=== PATIENT | male | born 1945 | race Caucasian/White ===

== ENCOUNTER 2023-09-19 16:42 | Emergency (ER) | payer MEDICARE, SELFPAY ==
[2023-09-19] VITALS (44 sets, daily range): BP systolic 121–210; BP diastolic 84–117; PULSE 79–109; RESP 13–24; TEMP 37.2; O2SAT 94–100; BMI 25.0
--- NOTE | 2023-09-19 16:50 | ECG_ITS ---
The 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
--- NOTE | 2023-09-19 16:57 | ED_ITS ---
HPI - General Adult General Chief complaint: Nausea/Vomiting/Diarrhea Stated complaint: Nausea/Vomiting Time Seen by Provider: 09/19/23 16:47 Source: patient Mode of arrival: ambulance Limitations: no limitations History of Present Illness HPI narrative: 78-year-old male presents to the emergency department via EMS with complaint of dizziness, nausea, vomiting, and diarrhea. Onset 1 week ago of dizziness followed by the other symptoms. Describes dizziness as room spinning that worsens when he changes position. Received 8mg of IV Zofran via EMS while enroute. Denies any abdominal pain, fever, chills, lightheadedness, presyncope. Quality:?as above Severity:?moderate Timing:?as above, constant Context: Normal setting and activity? Modifying factors:?as above Associated symptoms: as above Related Data Home Medications Medication Instructions Recorded Confirmed aspirin 325 mg tablet 325 mg PO DAILY 09/19/23 09/19/23 metoprolol tartrate 25 mg tablet 12.5 mg PO BID 09/19/23 09/19/23 nitroglycerin 0.4 mg sublingual 0.4 mg sublingual Q5M PRN chest 09/19/23 09/19/23 tablet pain simvastatin 40 mg tablet 40 mg PO DAILY 09/19/23 09/19/23 Allergies Allergy/AdvReac Type Severity Reaction Status Date / Time No Known Drug Allergies Allergy Verified 09/19/23 16:45 Review of Systems ROS Narrative CONST: Denies fever, chills HENT: Denies congestion, sore throat EYES: Denies eye redness, visual disturbance RESP: Denies cough, shortness of breath CV: Denies chest pain, palpitations GI: + n/v/d. Denies abd pain : Denies dysuria, flank pain MS: Denies back pain, myalgias SKIN: Denies color change, rash NEURO: + dizziness. Denies facial asymmetry, headaches, light-headedness, numbness, seizures, syncope, tremors, weakness PSYCHIATRIC: Denies confusion, agitation PFSH PFSH Social History Smoking status: Never smoker Exam Narrative Exam Narrative: Vital signs reviewed Nurses notes noted CONST: Nontoxic, well appearing, well nourished, in no distress.? No diaphoresis.?? HENT: normocephalic, atraumatic, moist mucous membrane, no abnormalities of the nose noted, hearing normal, no facial droop EYES: PERRL, EOMI.? normal appearing conjunctiva, no apparent discharge bilat. + NECK: normal appearance CV: normal rate, regular rhythm, no murmur RESP: normal effort, speaking in complete sentences. Lung sounds clear and equal bilat.? No wheezes, rales, rhonchi GI: normal bowel sounds, soft, nontender, no distension : no CVA tenderness MS: no edema, injury SKIN: no pallor NEURO: A&Ox 3, GCS = 15, no sensory, motor deficits.? CN normal as tested. NIH = 0.? 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 Normal speech.? Memory intact Constitutional Vital Signs, click to edit/add: Last Vital Signs Temp 98.9 F 09/19/23 16:45 Pulse 102 H 09/19/23 23:21 Resp 23 09/19/23 23:21 BP 161/84 H 09/19/23 23:30 Pulse Ox 98 09/19/23 18:40 O2 Del Method Room Air 09/19/23 16:45 Course Reevaluation(s) Reevaluation #1: States overall improvement of his dizziness. Nausea has improved as well. Will attempt to ambulate patient and reassess. Time: 18:38 Reevaluation #2: Nursing attempted to ambulate patient. However, when he went to go stand up, became vertiginous again and had to sit back down. New medicines ordered. Time: 18:52 Reevaluation #3: Patient still remains quite vertiginous. CT head ordered. Time: 19:33 Consultations Consultation #1: Dr. García who will accept patient at [facility]. Requests CTA head and neck and to start patient on Cardene drip with goal of blood pressure below 140 systolic. Time: 20:40 Vital Signs Vital signs: Vital Signs Temperature 98.9 F 09/19/23 16:45 Pulse Rate 81 09/19/23 16:45 Respiratory Rate 20 09/19/23 16:45 Blood Pressure 179/115 H 09/19/23 16:45 Pulse Oximetry 100 09/19/23 16:45 Oxygen Delivery Method Room Air 09/19/23 16:45 Temperature 98.9 F 09/19/23 16:45 Pulse Rate 102 H 09/19/23 23:21 Respiratory Rate 23 09/19/23 23:21 Blood Pressure 161/84 H 09/19/23 23:30 Pulse Oximetry 98 09/19/23 18:40 Oxygen Delivery Method Room Air 09/19/23 16:45 Medical Decision Making MDM Narrative Medical decision making narrative: This is a pleasant 78-year-old male presents to the emergency department with his with 1 week history of dizziness. Describes as spinning sensation that changes with changes in position. Having associated nausea, vomiting with this. Denies any headache, prior history of vertigo. On arrival, afebrile, vital signs stable. He arrived via EMS. On exam, nontoxic, overall well-appearing patient, in no distress. Exam reveals horizontal nystagmus. No focal deficits. 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 No gross cranial nerve deficits. Unable to stand patient to assess gait as he is extremely vertiginous. EKG reveals no acute changes Labs reveal no leukocytosis, anemia, thrombocytopenia, electrolyte imbalance, renal impairment. COVID, influenza, RSV testing were all negative. LFTs unrema rkable. Initial presentation, working diagnosis was of benign positional vertigo. However, when patient did not respond at all to medication treatment, CT was obtained which revealed cerebellar hemorrhages, per radiology report. Discussed results with patient and and need to transfer to higher level of care. They initially requested [facility], but neurosurgery not available there. Patient denies any anticoagulant use. Only takes ASA. They are agreeable with [facility] and neurosurgery at [facility] was consulted. Patient was subsequently accepted with request for CTA head and neck, as well as Cardene drip with goal blood pressure of less than 140 mmHg. Patient with condition that could cause him to deteriorate quickly. Will carefully monitor Plan: Patient will be transferred in serious condition Medical Records Medical records reviewed: Yes I reviewed the patient's medical records Lab Data Labs: Lab Results 09/19/23 09/19/23 09/19/23 Range/Units 17:15 17:40 19:20 WBC 11.6 H (4.0-11.0) 10^3/uL RBC 6.00 (4.70-6.10) 10^6/uL Hgb 16.8 (14.0-18.0) g/dL Hct 50.5 (42.0-54.0) % MCV 84.2 (80.0-94.0) fL MCH 28.0 (25.9-34.0) pg MCHC 33.3 (29.9-35.2) g/dL RDW 12.8 (11.0-15.0) % Plt Count 312 (150-450) 10^3/uL MPV 10.6 (9.5-13.5) fL Seg Neuts % (Manual) 93.0 Lymphocytes % (Manual) 4.0 L (20.5-60.0) % Monocytes % (Manual) 3.0 (1.7-12.0) % Eosinophils % (Manual) 0.0 L (0.9-7.0) % Basophils % (Manual) 0.0 L (0.2-2.0) % Neutrophils # (Manual) 10.78 H (1.4-6.5) 10^3/uL Lymphocytes # (Manual) 0.46 L (1.20-3.80) 10^3/uL Monocytes # (Manual) 0.34 (0.30-0.80) 10^3/uL Eosinophils # (Manual) 0.00 (0.00-0.70) 10^3/uL Basophils # (Manual) 0.00 (0.00-0.10) 10^3/uL Sodium 139 (136-145) mmol/L Potassium 4.5 (3.5-5.1) mmol/L Chloride 101 (98-107) mmol/L Carbon Dioxide 30.0 (21.0-32.0) mmol/L Anion Gap 12.5 BUN 27.0 H (7.0-18.0) mg/dL Creatinine 1.07 (0.70-1.30) mg/dL Est GFR ( Amer) >60 (>=60) Est GFR (Non-Af Amer) >60 (>=60) BUN/Creatinine Ratio 25.2 Glucose 156 H (74-106) mg/dL Calcium 9.1 (8.5-10.1) mg/dL Total Bilirubin 0.8 (0.2-1.0) mg/dL AST 28 (15-37) U/L ALT 29 (16-63) U/L Alkaline Phosphatase 57 (46-116) U/L Total Protein 8.5 H (6.4-8.2) g/dL Albumin 3.7 (3.4-5.0) g/dL Globulin 4.8 g/dL Albumin/Globulin Ratio 0.8 Influenza Type A Ag Negative Influenza Type B Ag Negative RSV Antigen Not detected (NOT DETECTE) SARS-CoV-2 Ag (CV2AG) Negative (NEGATIVE) ECG Data Attestation: I personally reviewed and interpreted this ECG as follows: (EKG performed at 1653 hrs. reveals sinus rhythm at 80 bpm. No ischemia or ectopy noted. No ST elevation. Normal axis. No other acute changes.) Critical Care Time Critical Care Time Critical Care Time: Yes Total Critical Care Time: 40 Attestation: I spent a total of? 40 minutes of critical care time in the evaluation and management of this patient. This was necessary to treat or prevent deterioration of the following condition(s): elevated BP, ICH, which the patient had and/or has a high probability of suddenly developing. The patient received Cardene drip, monitoring, during the time that critical care was provided. Critical care time excludes separately billed procedures. Discharge Plan Discharge Chief Complaint: Nausea/Vomiting/Diarrhea Clinical Impression: Acute cerebellar hemorrhage, Elevated blood pressure reading, Dizziness Nausea & vomiting Qualifiers: Vomiting type: unspecified Qualified Code(s): R11.2 - Nausea with vomiting, unspecified Patient Disposition: [facility] Time of Disposition Decision: 20:47 Discharge Location: [facility] Condition: Serious Mode of Transportation: EMS Discharge Date/Time: 09/20/23 00:10
[2023-09-19] MEDS: DIAZEPAM 10 MG/2 ML SYRINGE 2.5 MG IV (17:13)
[2023-09-19] MEDS: 0.9 % SODIUM CHLORIDE 1,000 ML 999 ML IV (17:13)
[2023-09-19 17:27] LABS: Hematocrit 50.5 % (42.0-54.0); Hemoglobin 16.8 g/dL (14.0-18.0); Mean Corpuscular HGB Conc 33.3 g/dL (29.9-35.2); Mean Corpuscular Volume 84.2 fL (80.0-94.0); Mean Platelet Volume 10.6 fL (9.5-13.5); Platelet Count 312 10^3/uL (150-450); Red Cell Distribution Width 12.8 % (11.0-15.0); White Blood Count 11.6 10^3/uL (4.0-11.0)
[2023-09-19] MEDS: MECLIZINE HCL 12.5 MG TABLET 25 MG PO ×2 (17:45→19:08)
[2023-09-19 18:00] LABS: Lymphocytes Absolute Manual 0.46 10^3/uL (1.20-3.80); Monocytes Absolute Manual 0.34 10^3/uL (0.30-0.80); Segmented Neut Absolute Manual 10.78 10^3/uL (1.4-6.5)
[2023-09-19 18:03] LABS: Alanine Aminotransferase 29 U/L (16-63); Albumin Globulin Ratio 0.8; Albumin Level 3.7 g/dL (3.4-5.0); Alkaline Phosphatase 57 U/L (46-116); Anion Gap 12.5; Aspartate Amino Transferase 28 U/L (15-37); BUN Creatinine Ratio 25.2; Bilirubin Total 0.8 mg/dL (0.2-1.0); Calcium 9.1 mg/dL (8.5-10.1); Chloride 101 mmol/L (98-107); Estimated GFR (African America >60 (>=60); Estimated GFR (Non-African Ame >60 (>=60); Globulin 4.8 g/dL; Glucose 156 mg/dL (74-106); Potassium 4.5 mmol/L (3.5-5.1); Sodium 139 mmol/L (136-145); Total Protein 8.5 g/dL (6.4-8.2)
[2023-09-19] MEDS: ONDANSETRON PF 4 MG/2 ML VIAL IV (19:08)
[2023-09-19] MEDS: METHYLPREDNISOLONE SOD SUCC PF 125 MG/2 ML VIAL IVP (19:09)
--- NOTE | 2023-09-19 19:33 | CT_ITS ---
The [address] [address] Patient Name: JANICE SHULTZ MRN: [id number] date: 1945 Sex: M Assigned Patient Location: ER Current Patient Location: ER Accession/Order Number: [id number] Exam Date: 09/19/2023 19:42 Report Date: 09/19/2023 20:00 At the request of: KAY BROTHERS Procedure: CT head/brain wo con CT OF THE BRAIN WITHOUT CONTRAST: 09/19/2023 7:42 PM EST HISTORY: Dizziness. TECHNIQUE: Contiguous axially collimated images were obtained through the intracranial compartment, from the vertex through the foramen magnum. Coronal and Sagittal reformatted images were prepared on a separate workstation and reviewed on the PACS for anatomic correlation. No contrast was administered. This CT exam was performed using one or more of the following dose reduction techniques: Automated exposure control, adjustment of the mA and/or kV according to patient size, or use of iterative reconstruction technique. Thin section coronal and sagittal images were reconstructed from the axial data set. All images were reviewed and interpreted. COMPARISON: None. FINDINGS: Acute left cerebellar hemorrhage/hemorrhages are noted. These are intraparenchymal. One versus 2 adjacent hemorrhages together extending 3 cm transverse and approximately 1.2 cm craniocaudal and AP 1.3 cm. There is diffuse surrounding vasogenic edema present. This is causing localized mass effect. Mild mass effect on the fourth ventricle. No significant mass effect. No intraventricular hemorrhage. No hydrocephalus. No additional areas of intra-axial or extra-axial hemorrhage. 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 This is causing slight ex vacuo dilation of the posterior horn right lateral ventricle relative to the left. There is a remote lacunar infarct in the right basal ganglia and adjacent deep white matter in the anterior limb right internal capsule and right caudate head. Mildly prominent cisterna magna. No midline shift or herniation. Moderate bilateral cerebral atrophy. Mild chronic small vessel ischemic change in the bilateral periventricular white matter with more extensive chronic gliosis within the right parietal lobe from old adjacent infarct. Sinuses and mastoid air cells are clear. Orbits are normal. Intact calvarium. CT/CT head/brain wo con IMPRESSION: 1. Acute left cerebellar intraparenchymal hemorrhage/hemorrhages. Uncertain if there is one versus 2 adjacent hemorrhages. Associated surrounding vasogenic edema causing localized mass effect but no midline shift or herniation. No intraventricular hemorrhage or hydrocephalus. There is some minimal mass effect on the fourth ventricle. Differential includes acute hemorrhagic stroke. Underlying hemorrhagic metastasis not excluded. Follow up. 2. 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 3. Sequelae of old right basal ganglia, caudate and deep white matter lacunar infarct. Electronically authenticated by: MAURA CHAUDHRY Date: 09/19/2023 20:00
[2023-09-19 19:45] LABS: Respiratory Syncytial Virus Not Detected (NOT DETECTE); SARS-CoV-2 Ag NEGATIVE (NEGATIVE)
[2023-09-19 19:46] LABS: Influenza Virus A Antigen Negative; Influenza Virus B Antigen Negative; Internal Control Within Normal Limits
--- NOTE | 2023-09-19 20:40 | CT_ITS ---
[address] [address] Patient Name: JANICE SHULTZ MRN: [id number] date: 1945 Sex: M Assigned Patient Location: ER Current Patient Location: .[facility] Accession/Order Number: [id number] Exam Date: 09/19/2023 21:10 Report Date: 09/19/2023 21:54 At the request of: KAY BROTHERS Procedure: CT angio neck CTA HEAD/NECK. HISTORY: CVA COMPARISON: None. TECHNIQUE: CT angiogram of the head and neck obtained after administration of 75 mL of nonionic intravenous contrast material, Isovue-300. Multiplanar and volume rendered 3-D reformats were created. NASCET criteria was used for evaluation of luminal stenosis. 3-D vascular images were constructed on a separate workstation. FINDINGS: THORACIC AORTA: Normal. There is a normal anatomy at the origin of the great vessels. RIGHT COMMON CAROTID ARTERY: No significant stenosis. RIGHT EXTERNAL CAROTID ARTERY: No significant stenosis. RIGHT INTERNAL CAROTID ARTERY: No significant stenosis. LEFT COMMON CAROTID ARTERY: No significant stenosis. LEFT EXTERNAL CAROTID ARTERY: No significant stenosis. LEFT INTERNAL CAROTID ARTERY: No significant stenosis. RIGHT VERTEBRAL ARTERY: No significant stenosis. LEFT VERTEBRAL ARTERY: There is occlusion of the V1 and proximal V2 segment with reconstitution of the more distal V2 segment. [place]: There is moderate focal stenosis of the right MCA distal M1 segment. POSTERIOR INTRACRANIAL CIRCULATION: The basilar artery and posterior cerebral arteries are patent, without stenosis or occlusion. 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 DURAL SINUSES: Patent. No intracranial aneurysm measuring least 2 mm identified. No intracranial AVM. LUNG APICES: The lung apices are clear. SOFT TISSUES: The prevertebral soft tissues are normal. No soft tissue inflammation. OSSEOUS STRUCTURES: No acute osseous abnormality throughout the imaged axial skeleton and skull base. CT/CT angio neck IMPRESSION: 1. 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 2. 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 3. Moderate multifocal stenosis of the bilateral SU[employer].. Electronically authenticated by: NATE JAMES Date: 09/19/2023 21:54
--- NOTE | 2023-09-19 20:40 | CT_ITS ---
[address] [address] Patient Name: JANICE SHULTZ MRN: [id number] date: 1945 Sex: M Assigned Patient Location: ER Current Patient Location: .[facility] Accession/Order Number: [id number] Exam Date: 09/19/2023 21:10 Report Date: 09/19/2023 21:54 At the request of: KAY BROTHERS Procedure: CT angio head CTA HEAD/NECK. HISTORY: CVA COMPARISON: None. TECHNIQUE: CT angiogram of the head and neck obtained after administration of 75 mL of nonionic intravenous contrast material, Isovue-300. Multiplanar and volume rendered 3-D reformats were created. NASCET criteria was used for evaluation of luminal stenosis. 3-D vascular images were constructed on a separate workstation. FINDINGS: THORACIC AORTA: Normal. There is a normal anatomy at the origin of the great vessels. RIGHT COMMON CAROTID ARTERY: No significant stenosis. RIGHT EXTERNAL CAROTID ARTERY: No significant stenosis. RIGHT INTERNAL CAROTID ARTERY: No significant stenosis. LEFT COMMON CAROTID ARTERY: No significant stenosis. LEFT EXTERNAL CAROTID ARTERY: No significant stenosis. LEFT INTERNAL CAROTID ARTERY: No significant stenosis. RIGHT VERTEBRAL ARTERY: No significant stenosis. LEFT VERTEBRAL ARTERY: There is occlusion of the V1 and proximal V2 segment with reconstitution of the more distal V2 segment. [place]: There is moderate focal stenosis of the right MCA distal M1 segment. POSTERIOR INTRACRANIAL CIRCULATION: The basilar artery and posterior cerebral arteries are patent, without stenosis or occlusion. 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 DURAL SINUSES: Patent. No intracranial aneurysm measuring least 2 mm identified. No intracranial AVM. LUNG APICES: The lung apices are clear. SOFT TISSUES: The prevertebral soft tissues are normal. No soft tissue inflammation. OSSEOUS STRUCTURES: No acute osseous abnormality throughout the imaged axial skeleton and skull base. CT/CT angio head IMPRESSION: 1. 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 2. 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 3. Moderate multifocal stenosis of the bilateral INTERVENTIONAL PHYSICIAN.. Electronically authenticated by: NATE JAMES Date: 09/19/2023 21:54
[2023-09-19] MEDS: NICARDIPINE IN NACL, ISO-OSM 40 MG/200 ML PIGGYBACK 25 MG IV (21:43)
== END 2023-09-20 00:10 | disposition short-term general hospital (02) ==
PROVIDERS: Physician Assistant; Emergency Provider Emergency Medicine; PCP Family Medicine
DX: I61.4 Nontraumatic intracerebral hemorrhage in cerebellum (principal); R11.2 Nausea with vomiting, unspecified; R03.0 Elevated blood-pressure reading, without diagnosis of hypertension; R19.7 Diarrhea, unspecified; Z79.82 Long term (current) use of aspirin; R42 Dizziness and giddiness
CPT/HCPCS: 36415; 70450; 70496; 70498; 80053; 85007; 85027; 87420; 87804; 87811; 93005; 96374; 96375; 99285; J2404; J2405; J2930; J3360; Q9967

== ENCOUNTER 2023-10-17 09:10 | Emergency (ER) | payer MEDICARE, SELFPAY ==
[2023-10-17 09:16] VITALS: BP 137/82; PULSE 60; RESP 16; TEMP 36.5; O2SAT 97; BMI 24.4
--- OUTSIDE RECORDS SUMMARY | 2023-10-17 09:39 | XMS_ITS | CCD ---
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 Name Role Phone SYSTEM, PROVIDER NOT IN Unavailable Unavaila SHERIF Mathias Unavailable Unavailable KAY JEAN Unavailable Unavailable MARIA TERESA, JAILENE Unavailable Unavailable UDREA, PETRE Unavailable Unavailable SYSTEM, PROVIDER NOT IN Unavailable Unavaila ble JAMESON SHERIDAN Unavailable Unavailable DALJIT, DEVYN Unavailable Unavailable MARIA TERESA, JAILENE Unavailable Unavailable SYSTEM, PROVIDER NOT IN Unavailable Unavaila ble SIDDHARTH DOLAN Unavailable Unavailable UNKNOWN, PROVIDER Unavailable Unavailable DEFRANCE, SHERIF Unavailable Unavailable Defbhupendra, Sherif Lofton Unavailable Unavailable Unavailable Trinh Bailey Unavailable Unavailable Unavailable PAY, DR NORMAN Admitting Unavailable West, DR Gorman Consulting Unavailable DEFRANCE, DR GORMAN Primary Care Unavailable PAY, DR NORMAN Attending Unavailable PAY, DR NORMAN Consulting Unavailable HAY, DR KNIGHT Admitting Unavailable DEFRANCE, DR GORAMN Primary Care Unavailable HAY, DR KNIGHT Attending Unavailable HAY, DR KNIGHT Consulting Unavailable TROTTLv GIROLADENVER Consulting Unavailable HONG, DR CAITIE Roque Attending Unavailabl e REINECK, DR CAITIE Roque Consulting Unavailabl e DEFRANCE, DR GORMAN Primary Care Unavailable HONG, DR CAITIE Roque Admitting Unavailabl e NISSA, DR KASH Richardson Consulting Unavailable GWENDOLYN BUNN Consulting Unavailable Jean Carlos, Dr. Lake Chan Attending Unava ilable Jean Carlos, Dr. Lake Chan Referring Unava ilable Defrance, Dr. Sherif Magana Primary Care Unava ilable LENA, SHERIF Lofton Referring Unavailable DEFBHUPENDRA, SHERIF Lofton Primary Care Unavailable DEFRANCE, SHERIF Lofton Referring Unavailable DEFRANCE, SHERIF Lofton Primary Care Unavailable DEFRANCE, SHERIF Lofton Referring Unavailable DEFRANCE, SHERIF T Primary Care Unavailable Sherif Paredes MD Primary Care Provider [phone] GOPAL NOVA Admitting Unavailable GOPAL NOVA Attending Unavailable REF PROV, NOT IN SYSTEM Referring Unavaila ble DEFBHUPENDRA, SHERIF Lofton Primary Care Unavailable JOHNATHAN PINTO Consulting Unavailable STEPHANIEROLAND Caruso Consulting Unavailable JAUN, JANICE Y Consulting Unavailable MAGSI, RAYAN Referring Unavailable DEFRANCE, SHERIF Lofton Primary Care Unavailable MAGSI, RAYAN Referring Unavailable DEFRANCE, SHERIF Lofton Primary Care Unavailable PRSAANNA THORNTON Referring Unavailable DEFRANCE, SHERIF Lofton Primary Care Unavailable MD Sherif Paredes Primary Care Provider MD Donovan La Admit Provider MD Donovan La Attending Provider FELIPE Barber Other Provider Unavailable FELIPE Heredia Other Provider Unavailable FELIPE Galicia Other Provider Unavailable FELIPE Enriquez Other Provider Unavailable FELIPE Burris Other Provider Unavailable FELIPE Mendieta Other Provider Unavailable FELIPE Butler Other Provider Unavailable MD Sole [place] Other Provider MD Prem Carrasco Other Provider Unavailable NAN North Other Provider DO Aayush Faith Other Provider MD Fuentes Nazario Other Provider DO Cesar Parr Other Provider MD Emanuel Stevenson Other Provider MD Niurka Chung Other Provider MD Alex Hernandes Other Provider Unavailable NAN Andrea Other Provider MD Hali Springer Other Provider MD Fercho Newby Other Provider MD Adriana Ling Other Provider MD Saloni Esposito Other Provider DO Kay Blackburn Other Provider MD Lindsey Mcghee Other Provider MD Bahman Harley Other Provider ANTWAN Dyer Other Provider NAN Rodríguez Other Provider Unavailable MD Fletcher Pollard Other Provider MD Gui Longo Other Provider MD Alexx Garcia Other Provider MD Arlene Mccall Other Provider Unavailable MD Rohit Toure Other Provider DO Radha Islas Other Provider DO Crow Ceballos Other Provider DO Dominic Bo Other Provider NAN Malhotra Other Provider DO Sav Malcolm Other Provider MD Angel Houston Other Provider NAN Lipscomb Other Provider NAN Leavitt Other Provider MD Naye Saxena Other Provider MD Triston Camp Other Provider DO Lee Dumont Other Provider NAN Garrett Other Provider Unavailjen alanis SegunDO connor Yazid Other Provider FELIPE Dan Other Provider Unavailable Sherif Paredes Primary Care Unavailable Hernan Minaya Attending Unavailable Donovan La Admitting Unavaila Jessica Fairbanks Consulting Unavailable Gabbie Heredia Consulting Unavailable Shaista Galicia Consulting Unavailable Harriet Enriquez Consulting Unavailable Carmen Burris Consulting Unavailable Shreya Mendieta Consulting Unavailable Richa Butler Consulting Unavailable Sole [place] Consulting Unavailable Danilo, Prem K Consulting Unavailable Catie North Consulting Unavailable Aayush Faith Consulting Unavailable Fuentes Nazario Consulting Unavailable Cesar Parr Consulting UnavailEmanuel Yanes Consulting Unavailable Niurka Chung Consulting Unavailable Alex Hernandes Consulting Unavailable Jessie Andrea Consulting UnavailHali Avila Consulting Unavailable Fercho Newby Consulting Unavailable Adriana Ling Consulting Unavailable Saloni Esposito Consulting Unavailable Kay Blackburn Consulting Unavailable Lindsey Mcghee Consulting Unavailable Bahman Harley Consulting Unavailable Kell Dyer Consulting Unavailable Rebekah Rodríguez Consulting Unavailable Fletcher Pollard Consulting UnavailGui Boudreaux Consulting Unavailable Alexx Garcia Consulting Unavailable Arlene Mccall Consulting Unavailable Rohit Toure Consulting Unavailable Radha Islas Consulting Unavailable Crow Ceballos Consulting Unavailable Dominic Bo Consulting Unavailable ObSarah mary Consulting Unavailable Sav Malcolm Consulting Unavailable Daromar Obayvikki M Consulting Unavailable Carmen Lipscomb Consulting Unavailable Fouzia Leavitt Consulting Unavailable Alahmad, Alaa Consulting Unavailable Triston Camp Consulting Unavailable Lee Dumont Consulting Unavailable Jewels Garrett Consulting Unavailable Kandice Cast Consulting Unavailable Yuli Dan Consulting Unavailable Trinh Bailey Attending Unavailable Trinh Bailey Admitting Unavailable Sherif Paredes Primary Care Unavailable Allergies Allergy Classification Reported Allergen(s) Allergy Type Date of Onset Reaction(s) Facility (9 sources) atorvastatin; Translations: [ATORVASTATIN] Drug Allergy 6 [facility], [facility] Rep[facility] Medications Current Medications Medication Drug Class(es) Dates Sig (Normalized) Sig (Original) acetaminophen 500 mg oral tablet (1 source) Start: 10-03-2023 take 500 mg by mouth every four hours Acetaminophen Active 500 MG PO Q4H 0 October 03, 2023 12:00am aspirin 81 mg chewable tablet (12 sources) Platelet Aggregation Inhibitor, Nonsteroidal Anti-inflammatory Drug Start: 09-26-2023 aspirin 81 mg chewable tablet Chew 1 tablet (81 mg total) and swallow in the morning. 0 09/26/2023 Active Start: 05-10-2020 Aspirin (Deirdre Low Dose Aspirin) 81 mg Tablet,Delayed Release (Dr/Ec) Active 81 MG PO Daily May 09, 2020 11:00pm take 1 tablet by letty th every twenty-four hours Aspirin 81 MG 1 tablet Orally Once a day Active meclizine hydrochloride 25 mg oral tablet (2 sources) Antiemetic Start: 10-03-2023 take 25 mg by mouth every eight hours Meclizine Active 25 MG PO Every 8 hours 90 October 03, 2023 12:00am meclizine (ANTIV ERT) 25 mg tablet Indications: vertigo Chew 1 tablet (25 mg total) and swallow 3 (three) times a day as needed for dizziness Indications: sensation of spinning or whirling. Take every 8 hours as needed for dizziness 0 Active melatonin 5 mg oral tablet (4 sources) Start: 09-25-2023 take 1 tablet by mouth once daily melatonin (CIRCADIN) 5 mg tablet Take 1 tablet (5 mg total) by mouth nightly. 0 09/25/2023 Active Start: 09-25-2023 take 5 mg by mouth at bedtime Melatonin Active 5 MG PO Bedtime September 25, 2023 12:00am metFORMIN hydrochloride 500 mg oral tablet (4 sources) Biguanide Start: 09-25-2023 take 1 tablet by mouth once daily at breakfast metFORMIN (GLUCOPHAGE) 500 mg tablet Take 1 tablet (500 mg total) by mouth daily with breakfast. 0 09/26/2023 Active metoprolol tartrate 25 mg oral tablet (13 sources) beta-Adrenergic Ari Start: 05-04-2020 take 1 tablet by mouth in the morning, then take 1 tablet by mouth at bedtime metoprolol tartrate (LOPRESSOR) 25 mg tablet Take 1 tablet (25 mg total) by mouth in the morning and 1 tablet (25 mg total) before bedtime. 0 09/25/2023 Active take 1 capsule by mouth once harjeet ly Metoprolol Succinate 50 MG 1 capsule Orally Once a day Active take 0.5 tablet by mouth twice d aily Metoprolol Tartrate 25 MG Oral Tablet Take 1/2 tablet two times daily Quantity: 90 Refills: 3 Ordered: 21-Nov-2022 Lake Evangelista DO Active omega-3 acid ethyl esters (u sp) 1000 mg oral capsule (4 sources) Start: 09-25-2023 [place]-3 Acid E thyl Esters (Lovaza) 1 gram capsule Active 1 CAP PO Twice daily September 25, 2023 12:00am take 1 capsule by mouth at bedti me omega-3 acid ethyl esters (LOVAZA) 1 gram capsule Take 1 capsule (1 g total) by mouth in the morning and 1 capsule (1 g total) before bedtime. 0 Active rosuvastatin calcium 40 mg oral tablet (4 sources) HMG-CoA Reductase Inhibitor Start: 09-25-2023 End: 10-03-2023 take 1 tablet by mouth once daily rosuvastatin (CRESTOR) 40 mg tablet Take 1 tablet (40 mg total) by mouth nightly. 0 09/25/2023 Active 72 hr scopolamine 0.0139 mg/hr transdermal system (5 sources) Anticholinergic Start: 09-26-2023 apply 1 dose transdermal route once daily scopolamine (TRANSDERM-SCOP) 1 mg/[address] 1 patch on the skin every third day. 0 09/26/2023 Active Start: 09-25-2023 End: 10-03-2023 Scopolamine Base Active 1 PA TCH TRANSDERML Every 72 hours 06 11October 03, 2023 2:10pm simvastatin 20 mg oral tablet (10 sources) HMG-CoA Reductase Inhibitor Start: 09-12-2022 take 1 tablet by mouth at bedtime Simvastatin 40 MG Oral Tablet TAKE 1 TABLET AT BEDTIME Quantity: 90 Refills: 3 Ordered: 21-Nov-2022 Lake Evangelista DO Start : 12-Sep-2022 Active Start: 05-04-2020 End: 10-03-2023 take 20 mg by mouth once daily at bedtime Simvastatin Active 20 MG PO Daily at bedtime October 03, 2023 2:10pm take 1 tablet by letty th at bedtime Simvastatin 40 MG Oral Tablet TAKE 1 TABLET AT BEDTIME. Quantity: 90 Refills: 0 Ordered: 25-Apr-2022 Lake Evangelista DO Active tamsulosin hydrochloride 0.4 mg oral capsule (5 sources) alpha-Adrenergic Ari Start: 09-25-2023 End: 10-03-2023 take 1 capsule by mouth once daily tamsulosin (FLOMAX) 0.4 mg capsule Take 1 capsule (0.4 mg total) by mouth nightly. 0 09/25/2023 Active Completed/Discontinued Medications Medication Drug Class(es) Dates Sig (Normalized) Sig (Original) nitroglycerin 0.4 mg sublingual tablet (9 sources) Nitrate Vasodilator Start: 05-17-2021 Nitroglycerin 0.4 MG Sublingual Tablet Sublingual PLACE 1 TABLET UNDER THE TONGUE EVERY 5 MINUTES FOR UP TO 3 DOSES NEEDED FOR CHEST PAIN.CALL 911 IF PAIN PERSISTS. Quantity: 1 Refills: 5 Ordered: 24-Nov-2022 Lake Evangelista DO Start : 17-May-2021 Active Problems Active Problems Problem Classification Problem Date Documented Date Episodic/Chronic Acute cerebrovascular disease (16 sources) Cerebral infarction, unspecified; Translations: [Embolic stroke] Onset: 11-25-2015 09-26-2023 Chronic Administrative/social admission (2 sources) Other reduced mobility; Translations: [Impaired mobility and activities of daily living] 09-26-2023 Episodic Conditions associated with dizziness or vertigo (4 sources) Dizziness and giddiness; Translations: [Vertigo] Onset: 01-23-2018 09-26-2023 Episodic Conditions associated with dizziness or vertigo (1 source) Conditions associated with dizziness or vertigo Onset: 01-23-2018 Coronary atherosclerosis and other heart disease (20 sources) Atherosclerotic heart disease of andreafski coronary artery without angina pectoris; Translations: [Coronary atherosclerosis] Onset: 03-26-2018 01-31-2018 Chronic Coronary atherosclerosis and other heart disease (10 sources) Post percutaneous transluminal coronary angioplasty; Translations: [Percutaneous transluminal coronary angioplasty status] Onset: 09-15-2021 Episodic Coronary atherosclerosis and other heart disease (1 source) Coronary atherosclerosis and other heart disease Onset: 03-26-2018 Disorders of lipid metabolism (12 sources) Hyperlipidemia; Translations: [Other and unspecified hyperlipidemia] Onset: 09-25-2023 09-27-2023 Chronic Essential hypertension (16 sources) Essential (primary) hypertension; Translations: [Hypertensive disorder] Onset: 01-23-2018 01-31-2018 Chronic Hyperplasia of prostate (3 sources) Benign prostatic hyperplasia; Translations: [Benign prostatic hyperplasia without lower urinary tract symptoms] 01-31-2018 Chronic Late effects of cerebrovascular disease (1 source) 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; Translations: [MONOPLG LL CEREB INFARCT LT N-DOM] Onset: 02-06-2022 Chronic Malaise and fatigue (1 source) Other malaise; Translations: [Other malaise] Onset: 01-23-2018 Episodic Occlusion or stenosis of precerebral arteries (16 sources) Bilateral stenosis of carotid arteries; Translations: [Occlusion and stenosis of carotid artery without mention of cerebral infarction] Onset: 12-06-2021 Resolved: 12-06-2021 Chronic Other aftercare (1 source) superintendent container terminal (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) use of aspirin; Translations: [FAMILY SUPPORT COORDINATOR CURRENT USE OF ASPIRIN] Onset: 04-26-2022 Episodic Other aftercare (1 source) Other superintendent container terminal (current) drug therapy; Translations: [OTH FAMILY SUPPORT COORDINATOR CURRENT DRUG THERAPY] Onset: 04-26-2022 Episodic Other and ill-defined cerebrovascular disease (1 source) Cerebrovascular disease; Translations: [Other cerebrovascular vasospasm and vasoconstriction] 09-26-2023 Chronic Other and ill-defined cerebrovascular disease (1 source) Other cerebrovascular vasospasm and vasoconstriction; Translations: [Other cerebrovascular vasospasm and vasoconstriction] Onset: 09-26-2023 Chronic Other circulatory disease (9 sources) History of cerebrovascular accident; Translations: [Personal history of transient ischemic attack (TIA), and cerebral infarction without residual deficits] Episodic Other injuries and conditions due to external causes (1 source) History of falling; Translations: [HISTORY OF FALLING] Onset: 04-26-2022 Episodic Other nervous system disorders (2 sources) Anesthesia of skin; Translations: [Paresthesia of skin] Onset: 01-23-2018 Episodic Other non-traumatic joint disorders (4 sources) Pain in left hip; Translations: [PAIN IN LEFT HIP] Onset: 04-24-2022 Episodic Other nutritional; endocrine; and metabolic disorders (9 sources) Overweight in adulthood with body mass index of 25 or more but less than 30; Translations: [Overweight] Episodic Residual codes; unclassified (1 source) Pain, unspecified; Translations: [Pain, unspecified] Onset: 09-20-2023 Episodic Residual codes; unclassified (1 source) History of cardiac catheterization; Translations: [Other specified postprocedural states] 09-27-2023 Episodic Residual codes; unclassified (2 sources) Other specified postprocedural states; Translations: [Other postprocedural status] Onset: 09-25-2023 10-04-2023 Episodic Residual codes; unclassified (1 source) Other specified health status; Translations: [Other specified health status] Onset: 09-25-2023 Episodic Transient cerebral ischemia (5 sources) Transient cerebral ischemic attack, unspecified; Translations: [Transient cerebral ischemia] Onset: 11-25-2015 01-31-2018 Chronic Transient cerebral ischemia (1 source) Transient cerebral ischemia Onset: 11-25-2015 Unclassified (1 source) Unknown / UNK(Unknown) Onset: 01-23-2018 Unclassified (1 source) Numbness / 75() Onset: 09-07-2016 Unclassified (2 sources) Athscl heart disease of andreafski coronary artery w/o ang pctrs / I25.10(ICD-9) Onset: 03-26-2018 Unclassified (1 source) Coronary angioplasty status / Z98.61(ICD-9) Onset: 03-26-2018 Unclassified (1 source) 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-9) Onset: 03-26-2018 Unclassified (1 source) Family hx of ischem heart dis and oth dis of the circ sys / Z82.49(ICD-9) Onset: 03-26-2018 Unclassified (1 source) intraparenchymal hemorrhage Onset: 09-20-2023 Unclassified (1 source) 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; Translations: [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] Onset: 09-25-2023 Unclassified (1 source) Occlusion and stenosis of bilateral carotid arteries; Translations: [Occlusion and stenosis of bilateral carotid arteries] Onset: 12-12-2022 Past or Other Problems Problem Classification Problem Date Documented Da te Episodic/Chronic E Codes: Fall (1 source) Fall on and from ladder, initial encounter; Translations: [FALL ON AND FROM LADDER INITIAL ENC] Onset: 02-06-2022 Episodic Mood disorders (3 sources) Mood disorders Onset: 09-20-2023 09-20-2023 Nonspecific chest pain (4 sources) Chest pain, unspecified; Translations: [CHEST PAIN UNSPECIFIED] Onset: 09-13-2021 Episodic Other nervous system disorders (3 sources) Numbness of upper limb; Translations: [Anesthesia of skin] Onset: 09-07-2016 01-31-2018 Episodic Other non-traumatic joint disorders (4 sources) Pain in left shoulder; Translations: [PAIN IN LEFT SHOULDER] Onset: 02-04-2022 Episodic Superficial injury; contusion (1 source) Contusion of left shoulder, initial encounter; Translations: [CONTUSION LEFT SHOULDER INITIAL ENC] Onset: 02-06-2022 Episodic Unclassified (9 sources) Never smoked tobacco; Translations: [Never a smoker] Results Test Name Value Interpretation Reference Range Facility Glucose Glucometer (dC) [M ass/Vol]Ordered By: Donovan La on 10-04-2023 Glucose [Mass/Vol] 116 mg/dL [facility] Comment on above: Random Glucose Refer ence Range is dependent on time and content of last meal. Glucose of more than 200 mg/dL in a nonstressed, ambulatory subject supports the diagnosis of Diabetes Mellitus. Glucose Poct Glucometerson 0 10-04-2023 Commemt1 Glu2: Cleaned Meter [facility] Comment on above: Result Comment: PERF ORMED BY: [place] [address] PATHOLOGIST MANAGER HEART DENIS PARADA M.D. Performed By: #### C , BMP #### [address] Glucose [Mass/Vol] 116 mg/dL Normal [facility] Comment on above: Result Comment: [place] Glucose Reference Range is dependent on time and content of last meal. Glucose of more than 200 mg/dL in a nonstressed, ambulatory subject supports the diagnosis of Diabetes Mellitus. Performed By: #### C BC, BMP #### [facility] [address] [place] [address] No Panel InformationOrdered By: Donovan La on 10-04-2023 Bedside Glucose Comment Glu2: cleaned meter [facility] Glucose Poct Glucometerson 0 10-03-2023 Glucose [Mass/Vol] 119 mg/dL Normal [facility] Comment on above: Result Comment: [place] om Glucose Reference Range is dependent on time and content of last meal. Glucose of more than 200 mg/dL in a nonstressed, ambulatory subject supports the diagnosis of Diabetes Mellitus. PERFORMED BY: [place] [id number] PATHOLOGIST MANAGER HEART DENIS PARADA M.D. Performed By: #### G LULS #### Point of Care testing , Glucose [Mass/Vol] 119 mg/dL Normal [facility] Comment on above: Result Comment: [place] Glucose Reference Range is dependent on time and content of last meal. Glucose of more than 200 mg/dL in a nonstressed, ambulatory subject supports the diagnosis of Diabetes Mellitus. PERFORMED BY: [place] [address] PATHOLOGIST MANAGER HEART DENIS PARADA M.D. Performed By: #### C BC, BMP #### [address] Glucose Poct Glucometerson 0 10-02-2023 Glucose [Mass/Vol] 112 mg/dL Normal [facility] Comment on above: Result Comment: [facility] Glucose Reference Range is dependent on time and content of last meal. Glucose of more than 200 mg/dL in a nonstressed, ambulatory subject supports the diagnosis of Diabetes Mellitus. PERFORMED BY: [place] [address] PATHOLOGIST MANAGER HEART DENIS PARADA M.D. Performed By: #### G LULS #### Point of Care testing , Glucose [Mass/Vol] 111 mg/dL Normal [facility] Comment on above: Result Comment: [place] Glucose Reference Range is dependent on time and content of last meal. Glucose of more than 200 mg/dL in a nonstressed, ambulatory subject supports the diagnosis of Diabetes Mellitus. PERFORMED BY: [place] [address] PATHOLOGIST MANAGER HEART DENIS PARADA M.D. Performed By: #### G LULS #### Point of Care testing , CT head/brain wo conon 10-01 CT head/brain wo [facility] [address] [place] [address] [place] [address] CT Scan Report Signed Patient: Janice Shultz MR#: [id number] 7 : 1945 Acct:[id number] Age/Sex: 78 / M ADM Date: 09/25/23 Loc: Room: 0I8001-3 Type: ADM IN Attending Dr: Donovan La MD Copies to: MD Tracy Mercado APRN Ordering Provider: Tracy Fernandez APRN Date of Service: 10/01/23 CT/CT head/brain wo con: f/u cva with hemorrhagic conversion CT head/brain wo con 09/30/2023 2:00 PM SIGNS AND SYMPTOMS: f/u cva with hemorrhagic conversion TECHNIQUE:Multi-detector CT axial slices of the brain were obtained without IV contrast. CT was performed with one or more of the following dose reduction techniques: Automated exposure control, adjustment of the mA and/or kV according to patient size, or use of iterative reconstruction technique. COMPARISON: 09/27/2023 FINDINGS: There is no shift of the midline structures, acute intracranial bleeding, mass effects, or evidence of acute ischemia. Continued interval resolution of heterogeneous blood products in the left cerebellar hemisphere is noted with decreasing vasogenic edema. Gliosis and encephalomalacia is redemonstrated in the right parietal and occipital lobes consistent with a remote infarct. Atherosclerotic changes are noted in the V4 segments of the vertebral arteries and intracranial segments of the internal carotid arteries. The ventricular system is normal in size. The brainstem and the cerebellum are unremarkable. The visualized intraorbital contents, the visualized paranasal sinuses, and the infratemporal soft tissues show no acute abnormality. The osseous structures in the skull base and the calvarium show no abnormality. CT/CT head/brain wo con IMPRESSION: No acute intracranial pathology. Continued interval resolution of heterogeneous blood products in the left cerebellar hemisphere is noted with decreasing vasogenic edema. Gliosis and encephalomalacia is redemonstrated in the right parietal and occipital lobes consistent with a remote infarct. Impression dictated by: Kelvin Vasquez M.D.10/01/2023 9:43 AM Dictation Location: [place] [address] Transcribed By: [facility] 10/01/2343 Dictated By: Kelvin Vasquez II, MD 10/01/2341 Signed By: 10/01/23942 Normal [facility] Glucose Poct Glucometerson 0 10-01-2023 Commemt1 Glu2: Cleaned Meter Normal [facility] Comment on above: Result Comment: PERF ORMED BY: [address] [place] [address] PATHOLOGIST MANAGER HEART DENIS PARADA M.D. Performed By: #### G ALEKSANDAR #### Point of Care testing , Glucose [Mass/Vol] 111 mg/dL Normal [facility] Comment on above: Result Comment: [place] om Glucose Reference Range is dependent on time and content of last meal. Glucose of more than 200 mg/dL in a nonstressed, ambulatory subject supports the diagnosis of Diabetes Mellitus. Performed By: #### G ALEKSANDAR #### Point of Care testing , Glucose [Mass/Vol] 112 mg/dL Normal [facility] Comment on above: Result Comment: [place] om Glucose Reference Range is dependent on time and content of last meal. Glucose of more than 200 mg/dL in a nonstressed, ambulatory subject supports the diagnosis of Diabetes Mellitus. PERFORMED BY: [address] [place] [id number] PATHOLOGIST MANAGER HEART DENIS PARADA M.D. Performed By: #### G ALEKSANDAR #### Point of Care testing , Basic Metabolic Panelon 09-13 Anion gap [Moles/Vol] 10.5 mmol/L Normal 6.0-15.[address] [facility] Comment on above: Performed By: #### C BC, BMP #### [facility] [address] [place] [address] [place] Calcium [Mass/Vol] 9.3 mg/dL Normal 8.6-10.3 [facility] Comment on above: Performed By: #### C BC, BMP #### [facility] [address] [place] [id number] [place] Chloride [Moles/Vol] 102 mmol/L Normal 98-107 [facility] Comment on above: Performed By: #### C BC, BMP #### [facility] [address] [place] [address] [place] CO2 [Moles/Vol] 26.8 mmol/L Normal 21.0-31.0 [facility] Comment on above: Performed By: #### C BC, BMP #### [address] Creatinine [Mass/Vol] 1.15 mg/dL Normal 0.70-1.30 [facility] Comment on above: Performed By: #### C BC, BMP #### [address] Creatinine Clr Calc Pharmacy 58.20 [facility] Comment on above: Result Comment: PERF ORMED BY: [place] [address] PATHOLOGIST MANAGER HEART DENIS PARADA M.D. Performed By: #### C BC, BMP #### [address] GFR/1.73 sq M.predicted MDRD (S/P/Bld) [Vol rate/Area] mL/min/{1.73_m2} [facility] Comment on above: Performed By: #### C BC, BMP #### [address] Glucose [Mass/Vol] 105 mg/dL High 70-100 [facility] Comment on above: Result Comment: [place] Glucose Reference Range is dependent on time and content of last meal. Glucose of more than 200 mg/dL in a nonstressed, ambulatory subject supports the diagnosis of Diabetes Mellitus. ADA recommended reference range Performed By: #### C BC, BMP #### [address] Potassium [Moles/Vol] 4.3 mmol/L Normal 3.5-5.1 [facility] Comment on above: Performed By: #### C BC, BMP #### [address] Sodium [Moles/Vol] 135 mmol/L Low 136-145 [facility] Comment on above: Performed By: #### C BC, BMP #### [facility] [address] Urea nitrogen [Mass/Vol] 25 mg/dL Normal 7-25 [facility] Comment on above: Performed By: #### C BC, BMP #### [address] Basophils Auto (Bld) [#/Vol] Ordered By: Tracy Fernandez on 09-30-2023 Basophils (Bld) [#/Vol] 0.1 10*3/uL 0.0-0.2 [facility] Basophils/100 WBC Auto (Bld) Ordered By: Tracy Fernandez on 09-30-2023 Basophils/100 WBC (Bld) 0.8 % . [facility] Calcium [Mass/volume] in Ser um or PlasmaOrdered By: Tracy Fernandez on 09-30-2023 Calcium [Mass/Vol] 9.3 mg/dL 8.6-10.3 [facility] Carbon dioxide, total [Moles /volume] in Serum or PlasmaOrdered By: Tracy Fernandez on 09-30-2023 CO2 [Moles/Vol] 26.8 mmol/L 21.0-31.0 [facility] Chloride [Moles/volume] in S papi or PlasmaOrdered By: Tracy Fernandez on 09-30-2023 Chloride [Moles/Vol] 102 mmol/L 98-107 [facility] Complete Blood Count Auto Di ffon 09-30-2023 Basophils (Bld) [#/Vol] 0.1 10*3/uL Normal 0.0-0.2 [facility] Comment on above: Result Comment: PERF ORMED BY: [place] [address] PATHOLOGIST MANAGER HEART DENIS PARADA M.D. Performed By: #### C JAZLYN, BMP #### [address] Basophils/100 WBC (Bld) 0.8 % Normal . [facility] Comment on above: Performed By: #### C BC, BMP #### [facility] [address] [place] [address] [place] Eosinophils (Bld) [#/Vol] 0.2 10*3/uL Normal 0.0-0.45 [facility] Comment on above: Performed By: #### C BC, BMP #### [facility] [address] [place] [address] [place] Eosinophils/100 WBC (Bld) 2.1 % Normal . [facility] Comment on above: Performed By: #### C BC, BMP #### [address] Erythrocyte distribution width (RBC) [Ratio] 13.9 % Normal 12.0-14.8 [facility] Comment on above: Performed By: #### C BC, BMP #### [address] Hematocrit (Bld) [Volume fraction] 42.2 % Normal 38.8-50.0 [facility] Comment on above: Performed By: #### C BC, BMP #### [address] Hemoglobin (Bld) [Mass/Vol] 13.9 g/dL Normal 13.0-17.0 [facility] Comment on above: Performed By: #### C BC, BMP #### [address] Lymphocytes (Bld) [#/Vol] 2.0 10*3/uL Normal 1.00-4.8 [facility] Comment on above: Performed By: #### C BC, BMP #### [place] [address] [place] Lymphocytes/100 WBC (Bld) 21.6 % Normal . [facility] Comment on above: Performed By: #### C BC, BMP #### [address] MCH (RBC) [Entitic mass] 27.9 pg Normal 27.5-35.2 [facility] Comment on above: Performed By: #### C BC, BMP #### [address] [place] [address] [place] MCV (RBC) [Entitic vol] 84.7 fL Normal 83.5-101 [facility] Comment on above: Performed By: #### C BC, BMP #### [address] Mean Corpuscular HGB Conc 32.9 g/dL Normal 32.5-35.6 [facility] Comment on above: Performed By: #### C BC, BMP #### [address] Monocytes (Bld) [#/Vol] 0.7 10*3/uL Normal 0.0-0.8 [facility] Comment on above: Performed By: #### C BC, BMP #### [address] Monocytes/100 WBC (Bld) 7.8 % Normal . [facility] Comment on above: Performed By: #### C BC, BMP #### [address] Neutrophils (Bld) [#/Vol] 6.2 10*3/uL Normal 1.8-7.7 [facility] Comment on above: Performed By: #### C BC, BMP #### [address] Neutrophils/100 WBC (Bld) 67.7 % Normal . [facility] Comment on above: Performed By: #### C BC, BMP #### [address] NRBC% 0.1 /100{WBC} Normal 0-0.5 [facility] Comment on above: Performed By: #### C BC, BMP #### [address] Platelet mean volume (Bld) [Entitic vol] 8.6 fL Normal 6.6-10.1 [facility] Comment on above: Performed By: #### C BC, BMP #### [address] Platelets (Bld) [#/Vol] 309 10*3/uL Normal 150-450 [facility] Comment on above: Performed By: #### C JAZLYN, BMP #### [facility] [address] RBC (Bld) [#/Vol] 4.99 10*6/uL Normal 3.90-5.60 [facility] Comment on above: Performed By: #### C JAZLYN, BMP #### [facility] [address] WBC (Bld) [#/Vol] 9.2 10*3/uL Normal 4.1-10.5 [facility] Comment on above: Performed By: #### C JAZLYN, BMP #### [address] Creatinine [Mass/volume] in Serum or PlasmaOrdered By: Tracy Fernandez on 09-30-2023 Creatinine [Mass/Vol] 1.15 mg/dL 0.70-1.30 [facility] Eosinophils Auto (Bld) [#/Vo l]Ordered By: Tracy Fernandez on 09-30-2023 Eosinophils (Bld) [#/Vol] 0.2 10*3/uL 0.0-0.45 [facility] Eosinophils/100 WBC Auto (Bl d)Ordered By: Tracy Fernandez on 09-30-2023 Eosinophils/100 WBC (Bld) 2.1 % . [facility] Erythrocyte distribution wid th Auto (RBC) [Ratio]Ordered By: Tracy Fernandez on 09-30-2023 Erythrocyte distribution width (RBC) [Ratio] 13.9 % 12.0-14.8 [facility] Glucose Poct Glucometerson 0 09-30-2023 Commemt1 Glu2: Cleaned Meter Normal [facility] Comment on above: Result Comment: PERF ORMED BY: [place] [address] PATHOLOGIST MANAGER HEART DENIS PARADA M.D. Performed By: #### G LUGLENN #### Point of Care testing , Glucose [Mass/Vol] 94 mg/dL Normal [facility] Comment on above: Result Comment: [place] om Glucose Reference Range is dependent on time and content of last meal. Glucose of more than 200 mg/dL in a nonstressed, ambulatory subject supports the diagnosis of Diabetes Mellitus. Performed By: #### G LULS #### Point of Care testing , Glucose [Mass/Vol] 98 mg/dL Normal [facility] Comment on above: Result Comment: [place] om Glucose Reference Range is dependent on time and content of last meal. Glucose of more than 200 mg/dL in a nonstressed, ambulatory subject supports the diagnosis of Diabetes Mellitus. PERFORMED BY: [facility] [address] [place] [address] PATHOLOGIST MANAGER HEART DENIS PARADA M.D. Performed By: #### G LULS #### Point of Care testing , Glucose [Mass/Vol] 112 mg/dL Normal [facility] Comment on above: Result Comment: [place] om Glucose Reference Range is dependent on time and content of last meal. Glucose of more than 200 mg/dL in a nonstressed, ambulatory subject supports the diagnosis of Diabetes Mellitus. PERFORMED BY: [facility] [address] [place] [address] PATHOLOGIST MANAGER HEART DENIS PARADA M.D. Performed By: #### G LULS #### Point of Care testing , Glucose [Mass/volume] in Ser um or PlasmaOrdered By: Tracy Fernandez on 09-30-2023 Glucose [Mass/Vol] 105 mg/dL 70-100 [facility] Comment on above: ADA recommended refe rence rangeRandom Glucose Reference Range is dependent on time and content of last meal. Glucose of more than 200 mg/dL in a nonstressed, ambulatory subject supports the diagnosis of Diabetes Mellitus. Hematocrit Auto (Bld) [Volum e fraction]Ordered By: Tracy Fernandez on 09-30-2023 Hematocrit (Bld) [Volume fraction] 42.2 % 38.8-50.0 [facility] Hemoglobin [Mass/volume] in BloodOrdered By: Tracy Fernandez on 09-30-2023 Hemoglobin (Bld) [Mass/Vol] 13.9 g/dL 13.0-17.0 [facility] Leukocytes [#/volume] correc alysia for nucleated erythrocytes in Blood by Automated counOrdered By: Tracy Fernandez on 09-30-2023 WBC corrected for nucl RBC Auto (Bld) [#/Vol] 9.2 10*3/uL 4.1-10.5 [facility] Lymphocytes Auto (Bld) [#/Vo l]Ordered By: Tracy Fernandez on 09-30-2023 Lymphocytes (Bld) [#/Vol] 2.0 10*3/uL 1.00-4.8 [facility] Lymphocytes/100 WBC Auto (Bl d)Ordered By: Tracy Fernandez on 09-30-2023 Lymphocytes/100 WBC (Bld) 21.6 % . [facility] MCH Auto (RBC) [Entitic mass ]Ordered By: Tracy Fernandez on 09-30-2023 MCH (RBC) [Entitic mass] 27.9 pg 27.5-35.2 [facility] MCHC Auto (RBC) [Mass/Vol]Or dered By: Tracy Fernandez on 09-30-2023 MCHC (RBC) [Mass/Vol] 32.9 g/dL 32.5-35.6 [facility] MCV Auto (RBC) [Entitic vol] Ordered By: Tracy Fernandez on 09-30-2023 MCV (RBC) [Entitic vol] 84.7 fL 83.5-101 [facility] Monocytes Auto (Bld) [#/Vol] Ordered By: Tracy Fernandez on 09-30-2023 Monocytes (Bld) [#/Vol] 0.7 10*3/uL 0.0-0.8 [facility] Monocytes/100 WBC Auto (Bld) Ordered By: Tracy Fernandez on 09-30-2023 Monocytes/100 WBC (Bld) 7.8 % . [facility] Neutrophils Auto (Bld) [#/Vo l]Ordered By: Tracy Fernandez on 09-30-2023 Neutrophils (Bld) [#/Vol] 6.2 10*3/uL 1.8-7.7 [facility] Neutrophils/100 WBC Auto (Bl d)Ordered By: Tracy Fernandez on 09-30-2023 Neutrophils/100 WBC (Bld) 67.7 % . [facility] No Panel InformationOrdered By: Tracy Fernandez on 09-30-2023 Estimated GFR (CKD-EPI) > 60.0 mL/Min [facility] Pharmacy Creatinine Clearance (Chem 58.20 [facility] Nucleated erythrocytes [Pres ence] in Blood by Automated countOrdered By: Tracy Fernandez on 09-30-2023 Nucleated RBC Auto Ql (Bld) 0.1 /100{WBC} 0-0.5 [facility] Platelet mean volume Auto (B ld) [Entitic vol]Ordered By: Tracy Fernandez on 09-30-2023 Platelet mean volume (Bld) [Entitic vol] 8.6 fL 6.6-10.1 [facility] Platelets Auto (Bld) [#/Vol] Ordered By: Tracy Fernandez on 09-30-2023 Platelets (Bld) [#/Vol] 309 10*3/uL 150-450 [facility] Potassium [Moles/volume] in Serum or PlasmaOrdered By: Tracy Fernandez on 09-30-2023 Potassium [Moles/Vol] 4.3 mmol/L 3.5-5.1 [facility] RBC Auto (Bld) [#/Vol]Ordere d By: Tracy Fernandez on 09-30-2023 RBC (Bld) [#/Vol] 4.99 10*6/uL 3.90-5.60 [facility] Serum or plasma anion gap de terminationOrdered By: Tracy Fernandez on 09-30-2023 Anion gap [Moles/Vol] 10.5 mmol/L 6.0-15.[address] [facility] Sodium [Moles/volume] in Ser um or PlasmaOrdered By: Tracy Fernandez on 09-30-2023 Sodium [Moles/Vol] 135 mmol/L 136-145 [facility] Urea nitrogen [Mass/volume] in Serum or PlasmaOrdered By: Tracy Fernandez on 09-30-2023 Urea nitrogen [Mass/Vol] 25 mg/dL 7-25 [facility] WBC Auto (Bld) [#/Vol]Ordere d By: Tracy Rebecca on 09-30-2023 WBC (Bld) [#/Vol] 9.2 10*3/uL 4.1-10.5 [facility] Glucose Poct Glucometerson 0 09-29-2023 Commemt1 Glu2: Cleaned Meter Normal [facility] Comment on above: Result Comment: PERF ORMED BY: [facility] [address] [place] [address] PATHOLOGIST MANAGER HEART DENIS PARADA M.D. Performed By: #### G LULS #### Point of Care testing , Glucose [Mass/Vol] 112 mg/dL Normal [facility] Comment on above: Result Comment: [place] om Glucose Reference Range is dependent on time and content of last meal. Glucose of more than 200 mg/dL in a nonstressed, ambulatory subject supports the diagnosis of Diabetes Mellitus. Performed By: #### G LULS #### Point of Care testing , Glucose [Mass/Vol] 99 mg/dL Normal [facility] Comment on above: Result Comment: [place] om Glucose Reference Range is dependent on time and content of last meal. Glucose of more than 200 mg/dL in a nonstressed, ambulatory subject supports the diagnosis of Diabetes Mellitus. PERFORMED BY: [facility] [address] [place] [address] PATHOLOGIST MANAGER HEART DENIS PARADA M.D. Performed By: #### G LULS #### Point of Care testing , Glucose Poct Glucometerson 0 09-28-2023 Glucose [Mass/Vol] 96 mg/dL Normal [facility] Comment on above: Result Comment: [place] om Glucose Reference Range is dependent on time and content of last meal. Glucose of more than 200 mg/dL in a nonstressed, ambulatory subject supports the diagnosis of Diabetes Mellitus. PERFORMED BY: [facility] [address] [place] [address] PATHOLOGIST MANAGER HEART DENIS PARADA M.D. Performed By: #### G LULS #### Point of Care testing , Glucose [Mass/Vol] 116 mg/dL Normal [facility] Comment on above: Result Comment: [facility] Glucose Reference Range is dependent on time and content of last meal. Glucose of more than 200 mg/dL in a nonstressed, ambulatory subject supports the diagnosis of Diabetes Mellitus. PERFORMED BY: [place] [address] PATHOLOGIST MANAGER HEART DENIS PARADA M.D. Performed By: #### C BC, BMP #### [address] head/brain wo conon 09-27 CT head/brain wo con [facility] [place] [address] [place] [address] CT Scan Report Signed with Addenda Patient: Janice Shultz MR#: [id number] 7 : 1945 Acct:[id number] Age/Sex: 78 / M ADM Date: 09/25/23 Loc: Room: [address] [place] [address] Type: ADM IN Attending Dr: Donovan La MD Copies to: Donovan La MD Ordering Provider: Donovan La MD Date of Service: 09/27/23 CT/CT head/brain wo con: f/u left PICA CVA. Worsening dizziness ADDENDUM 1 Outside brain MRI has now been up loaded for comparison dated 09/20/2023. No report is available. There appears be prior infarct and hemorrhage involving the left cerebellar hemisphere grossly unchanged in configuration when compared to the prior MRI study. Continued short-term follow-up CT or MRI is recommended to assess for progression. Impression dictated by: Hernan Dalton Jr., D.O.09/27/2023 2:20 PM Dictation Location: [place] [address] Addendum Dictated By: Hernan Dalton Jr DO Addendum Signed By: 09/27/231419 Addendum Cosigned By: DD/ TD/TT: 09/27/23 CT BRAIN WITHOUT CONTRAST: CLINICAL HISTORY: Follow-up CVA COMPARISON: CT brain 05/04/2020 TECHNIQUE: Contiguous axial unenhanced images were obtained through the brain. This CT exam was performed using one or more following dose reduction techniques: Automated exposure control, adjustm ent of the mA and/or kV according to patient size, or use of iterative reconstruction technique. FINDINGS: There is no evidence of midline shift, intra or extra-axial fluid collection. Cortical atrophy with chronic microvascular ischemic changes grossly similar to the prior study. Evidence of encephalomalacia seen involving the right parietal and temporal lobes consistent with prior infarct also grossly similar to the prior study. Lacunar infarct right basal ganglia. There appears to be hemorrhage involving the left cerebellar hemisphere measuring 1.6 cm in greatest axial dimension best seen on series 3 image 5. Visualized intraorbital contents demonstrate no acute findings. Visualized paranasal sinuses are clear. The surrounding soft tissues are normal. CT/CT head/brain wo con IMPRESSION: THERE APPEARS BE AN INTRAPARENCHYMAL HEMORRHAGE INVOLVING THE LEFT CEREBELLAR HEMISPHERE SUBOPTIMALLY EVALUATED DUE TO ARTIFACT MEASURING 1.6 CM IN GREATEST AXIAL DIMENSION. THIS CAN BE CONFIRMED BY MRI. Findings were discussed with the charge nurse Olesya 1:40 PM 09/27/2023 Impression dictated by: Hernan Dalton Jr., D.O.09/27/2023 1:40 PM Dictation Location: [place] [address] Transcribed By: [facility] 09/27/23 1340 Dictated By: Hernan Dalton Jr, DO 09/27/23 1330 Signed By: 09/27/23 1340 Normal [facility] Glucose Poct Glucometerson 0 09-27-2023 Glucose [Mass/Vol] 104 mg/dL Normal [facility] Comment on above: Result Comment: [facility] Glucose Reference Range is dependent on time and content of last meal. Glucose of more than 200 mg/dL in a nonstressed, ambulatory subject supports the diagnosis of Diabetes Mellitus. PERFORMED BY: [facility] [place] [address] PATHOLOGIST MANAGER HEART DENIS PARADA M.D. Performed By: #### G ALEKSANDAR #### Point of Care testing , Glucose [Mass/Vol] 114 mg/dL Normal [facility] Comment on above: Result Comment: [place] om Glucose Reference Range is dependent on time and content of last meal. Glucose of more than 200 mg/dL in a nonstressed, ambulatory subject supports the diagnosis of Diabetes Mellitus. PERFORMED BY: [place] [address] PATHOLOGIST MANAGER HEART DENIS PARADA M.D. Performed By: #### C BC, BMP #### [facility] [address] [place], [place] [id number] [facility] Alanine aminotransferase [En zymatic activity/volume] in Serum or PlasmaOrdered By: Donovan La on 09-26-2023 ALT [Catalytic activity/Vol] 48 U/L 7-52 [facility] Albumin [Mass/volume] in Ser um or Plasma by Bromocresol green (BCG) dye binding methoOrdered By: Mormonismanish La on 09-26-2023 Albumin BCG dye [Mass/Vol] 3.7 g/dL 3.5-5.7 [facility] Alkaline phosphatase [Enzyma tic activity/volume] in Serum or PlasmaOrdered By: Donovan La on 09-26-2023 ALP [Catalytic activity/Vol] 47 U/L 34-104 [facility] Aspartate aminotransferase [ Enzymatic activity/volume] in Serum or PlasmaOrdered By: Mormonism [facility] on 09-26-2023 AST [Catalytic activity/Vol] 22 U/L 13-39 [facility] Bilirubin.total [Mass/volume ] in Serum or PlasmaOrdered By: Donovan La on 09-26-2023 Bilirubin [Mass/Vol] 0.7 mg/dL 0.3-1.0 [facility] Complete Blood Count Auto Di ffon 09-26-2023 Basophils (Bld) [#/Vol] 0.1 10*3/uL Normal 0.0-0.2 [facility] Comment on above: Result Comment: PERF ORMED BY: [place] [address] PATHOLOGIST MANAGER HEART DENIS PARADA M.D. Performed By: #### C MP, CBC, PAB #### [facility] [address] [place], [place] [id number] [place] Basophils/100 WBC (Bld) 1.1 % Normal . [facility] Comment on above: Performed By: #### C MP, CBC, PAB #### [place] [address] [place] Eosinophils (Bld) [#/Vol] 0.2 10*3/uL Normal 0.0-0.45 [facility] Comment on above: Performed By: #### C MP, CBC, PAB #### [address] Eosinophils/100 WBC (Bld) 2.1 % Normal . [facility] Comment on above: Performed By: #### C MP, CBC, PAB #### [address] Erythrocyte distribution width (RBC) [Ratio] 13.5 % Normal 12.0-14.8 [facility] Comment on above: Performed By: #### C MP, CBC, PAB #### [address] Hematocrit (Bld) [Volume fraction] 40.4 % Normal 38.8-50.0 [facility] Comment on above: Performed By: #### C MP, CBC, PAB #### [address] Hemoglobin (Bld) [Mass/Vol] 13.7 g/dL Normal 13.0-17.0 [facility] Comment on above: Performed By: #### C MP, CBC, PAB #### [place] [address] [place] Lymphocytes (Bld) [#/Vol] 1.8 10*3/uL Normal 1.00-4.8 [facility] Comment on above: Performed By: #### C MP, CBC, PAB #### [place] [address] [place] Lymphocytes/100 WBC (Bld) 19.4 % Normal . [facility] Comment on above: Performed By: #### C MP, CBC, PAB #### [address] MCH (RBC) [Entitic mass] 28.5 pg Normal 27.5-35.2 [facility] Comment on above: Performed By: #### C MP, CBC, PAB #### [address] MCV (RBC) [Entitic vol] 84.0 fL Normal 83.5-101 [facility] Comment on above: Performed By: #### C MP, CBC, PAB #### [address] Mean Corpuscular HGB Conc 33.9 g/dL Normal 32.5-35.6 [facility] Comment on above: Performed By: #### C MP, CBC, PAB #### [address] Monocytes (Bld) [#/Vol] 0.9 10*3/uL High 0.0-0.8 [facility] Comment on above: Performed By: #### C MP, CBC, PAB #### [address] Monocytes/100 WBC (Bld) 9.4 % Normal . [facility] Comment on above: Performed By: #### C MP, CBC, PAB #### [address] Neutrophils (Bld) [#/Vol] 6.2 10*3/uL Normal 1.8-7.7 [facility] Comment on above: Performed By: #### C MP, CBC, PAB #### [address] Neutrophils/100 WBC (Bld) 68.0 % Normal . [facility] Comment on above: Performed By: #### C MP, CBC, PAB #### [address] NRBC% 0.0 /100{WBC} Normal 0-0.5 [facility] Comment on above: Performed By: #### C MP, CBC, PAB #### [address] Platelet mean volume (Bld) [Entitic vol] 8.4 fL Normal 6.6-10.1 [facility] Comment on above: Performed By: #### C MP, CBC, PAB #### [facility] [address] Platelets (Bld) [#/Vol] 244 10*3/uL Normal 150-450 [facility] Comment on above: Performed By: #### C MP, CBC, PAB #### [facility] [address] [place] [address] RBC (Bld) [#/Vol] 4.81 10*6/uL Normal 3.90-5.60 [facility] Comment on above: Performed By: #### C MP, CBC, PAB #### [address] WBC (Bld) [#/Vol] 9.1 10*3/uL Normal 4.1-10.5 [facility] Comment on above: Performed By: #### C MP, CBC, PAB #### [address] Comprehensive Metabolic Pane tejas 09-26-2023 Albumin [Mass/Vol] 3.7 g/dL Normal 3.5-5.7 [facility] Comment on above: Performed By: #### C MP, CBC, PAB #### [address] Albumin/Globulin [Mass ratio] 1.2 {ratio} Normal [facility] Comment on above: Performed By: #### C MP, CBC, PAB #### [address] ALP [Catalytic activity/Vol] 47 U/L Normal 34-104 [facility] Comment on above: Performed By: #### C MP, CBC, PAB #### [address] ALT [Catalytic activity/Vol] 48 U/L Normal 7-52 [facility] Comment on above: Performed By: #### C MP, CBC, PAB #### [facility] [address] [place] [address] [place] Anion gap [Moles/Vol] 12.8 mmol/L Normal 6.0-15.[address] [facility] Comment on above: Performed By: #### C MP, CBC, PAB #### [facility] [address] [place] [address] [place] AST [Catalytic activity/Vol] 22 U/L Normal 13-39 [facility] Comment on above: Performed By: #### C MP, CBC, PAB #### [facility] [address] [place] [address] [place] Bilirubin [Mass/Vol] 0.7 mg/dL Normal 0.3-1.0 [facility] Comment on above: Performed By: #### C MP, CBC, PAB #### [facility] [address] Calcium [Mass/Vol] 8.8 mg/dL Normal 8.6-10.3 [facility] Comment on above: Performed By: #### C MP, CBC, PAB #### [facility] [address] [place] [id number] [place] Chloride [Moles/Vol] 104 mmol/L Normal 98-107 [facility] Comment on above: Performed By: #### C MP, CBC, PAB #### [facility] [address] [place] [id number] [place] CO2 [Moles/Vol] 23.1 mmol/L Normal 21.0-31.0 [facility] Comment on above: Performed By: #### C MP, CBC, PAB #### [facility] [address] [place] [id number] [place] Creatinine [Mass/Vol] 0.93 mg/dL Normal 0.70-1.30 [facility] Comment on above: Performed By: #### C MP, CBC, PAB #### [facility] [address] [place] [id number] [place] Creatinine Clr Calc Pharmacy 71.97 Normal [facility] Comment on above: Performed By: #### C MP, CBC, PAB #### [facility] [address] [place] [address] [place] GFR/1.73 sq M.predicted MDRD (S/P/Bld) [Vol rate/Area] mL/min/{1.73_m2} [facility] Comment on above: Performed By: #### C MP, CBC, PAB #### [facility] [address] Globulin (S) [Mass/Vol] 3.2 g/dL Normal [facility] Comment on above: Performed By: #### C MP, CBC, PAB #### [facility] [address] Glucose [Mass/Vol] 132 mg/dL High 70-100 [facility] Comment on above: Result Comment: [place] Glucose Reference Range is dependent on time and content of last meal. Glucose of more than 200 mg/dL in a nonstressed, ambulatory subject supports the diagnosis of Diabetes Mellitus. ADA recommended reference range Performed By: #### C MP, CBC, PAB #### [address] Potassium [Moles/Vol] 3.9 mmol/L Normal 3.5-5.1 [facility] Comment on above: Performed By: #### C MP, CBC, PAB #### [place] [address] [place] Protein [Mass/Vol] 6.9 g/dL Normal 6.4-8.9 [facility] Comment on above: Performed By: #### C MP, CBC, PAB #### [place] [address] [place] Sodium [Moles/Vol] 136 mmol/L Normal 136-145 [facility] Comment on above: Performed By: #### C MP, CBC, PAB #### [facility] [address] [place] [address] [place] Urea nitrogen [Mass/Vol] 23 mg/dL Normal 7-25 [facility] Comment on above: Performed By: #### C MP, CBC, PAB #### [address] [place] [address] [facility] Globulin Calc (S) [Mass/Vol] Ordered By: Donovan La on 09-26-2023 Globulin (S) [Mass/Vol] 3.2 g/dL [facility] Glucose Poct Glucometerson 0 09-26-2023 Glucose [Mass/Vol] 175 mg/dL Normal [facility] Comment on above: Result Comment: [place] Glucose Reference Range is dependent on time and content of last meal. Glucose of more than 200 mg/dL in a nonstressed, ambulatory subject supports the diagnosis of Diabetes Mellitus. PERFORMED BY: [place] [address] PATHOLOGIST MANAGER HEART DENIS PARADA M.D. Performed By: #### C BC, BMP #### [address] Glucose [Mass/Vol] 125 mg/dL Normal [facility] Comment on above: Result Comment: [place] Glucose Reference Range is dependent on time and content of last meal. Glucose of more than 200 mg/dL in a nonstressed, ambulatory subject supports the diagnosis of Diabetes Mellitus. PERFORMED BY: [place] [address] PATHOLOGIST MANAGER HEART DENIS PARADA M.D. Performed By: #### C BC, BMP #### [place] [id number] [place] Prealbuminon 09-26-2023 Prealbumin [Mass/Vol] 22.8 mg/dL Normal 17.0-34.0 [facility] Comment on above: Result Comment: PERF ORMED BY: [place] [address] PATHOLOGIST MANAGER HEART DENIS PARADA M.D. Performed By: #### C MP, CBC, PAB #### [place] [id number] [place] Prealbumin [Mass/volume] in Serum or PlasmaOrdered By: Donovan La on 09-26-2023 Prealbumin [Mass/Vol] 22.8 mg/dL 17.0-34.0 [facility] Protein [Mass/volume] in Ser um or PlasmaOrdered By: Donovan La on 09-26-2023 Protein [Mass/Vol] 6.9 g/dL 6.4-8.9 [facility] Serum or plasma albumin/glob ulin mass ratioOrdered By: Donovan La on 09-26-2023 Albumin/Globulin [Mass ratio] 1.2 {ratio} [facility] CBC AND AUTO DIFFon 09-25-19 24 ABSOLUTE BASOPHIL 0.1 X10E9/L Normal 0.0-0.2 [facility] Comment on above: Performed By: #### C WINSOME GARCIA, 71796-0 #### [facility] ([id number]) [address] [place] [address] ABSOLUTE NEUTROPHIL 7.0 X10E9/L High 1.5-6.6 [facility] Comment on above: Performed By: #### C RADHA CMP, 90154-8 #### [facility] ([id number]) [address] [place] [address] Basophils/100 WBC (Bld) 0.6 % Normal [facility] Comment on above: Performed By: #### C RADHA CMP, 65365-2 #### [facility] ([id number]) [address] [place] [address] Eosinophils (Bld) [#/Vol] 0.2 10*3/uL Normal 0.0-0.4 [facility] Comment on above: Performed By: #### C BCA, CMP, 60739-9 #### [facility] ([id number]) [address] [place] [address] Eosinophils/100 WBC (Bld) 2.2 % Normal [facility] Comment on above: Performed By: #### C BCA, CMP, 63964-3 #### [facility] ([id number]) [address] [place] [address] Erythrocyte distribution width (RBC) [Ratio] 13.6 % Normal 11.5-15.0 [facility] Comment on above: Performed By: #### Susy GARCIA CMP, 06670-4 #### [facility] ([id number]) [address] [address] [place] [address] Hematocrit (Bld) [Volume fraction] 44.0 % Normal 39-49 [facility] Comment on above: Performed By: #### Susy GARCIA CMP, 88763-4 #### [facility] ([id number]) [address] [address] [place] [address] Hemoglobin (Bld) [Mass/Vol] 14.7 g/dL Normal 13.0-17.0 [facility] Comment on above: Performed By: #### Susy GARCIA CMP, 89349-4 #### [facility] ([id number]) [address] [address] [place] [address] Lymphocytes (Bld) [#/Vol] 1.5 10*3/uL Normal 1.0-3.5 [facility] Comment on above: Performed By: #### Susy GARCIA CMP, 57773-9 #### [facility] ([id number]) [address] [address] [place] [address] Lymphocytes/100 WBC (Bld) 15.5 % Normal [facility] Comment on above: Performed By: #### Susy GARCIA CMP, 60637-5 #### [facility] ([id number]) [address] [place] [address] MCH (RBC) [Entitic mass] 28.4 pg Normal 27-34 [facility] Comment on above: Performed By: #### Susy GARCIA CMP, 62829-4 #### [facility] ([id number]) [address] [address] [place] [address] MCHC (RBC) [Mass/Vol] 33.4 g/dL Normal 32-36 [facility] Comment on above: Performed By: #### Susy GARCIA CMP, 37105-7 #### [facility] ([id number]) [address] [place] [address] MCV (RBC) [Entitic vol] 85 fL Normal 80-100 [facility] Comment on above: Performed By: #### Susy GARCIA CMP, 12277-7 #### [facility] ([id number]) [address] [place] [address] Monocytes (Bld) [#/Vol] 0.7 10*3/uL Normal 0-0.9 [facility] Comment on above: Performed By: #### Susy GARCIA CMP, 68091-0 #### [facility] ([id number]) [address] [place] [address] Monocytes/100 WBC (Bld) 7.4 % Normal [facility] Comment on above: Performed By: #### Susy GARCIA CMP, 26716-7 #### [facility] ([id number]) [address] [place] [address] Neutrophils/100 WBC (Bld) 74.3 % Normal [facility] Comment on above: Performed By: #### Susy GARCIA CMP, 29578-3 #### [facility] ([id number]) [address] [place] [address] Platelet mean volume (Bld) [Entitic vol] 8.7 fL Normal 7-12 [facility] Comment on above: Performed By: #### Susy GARCIA CMP, 84875-1 #### [facility] ([id number]) [address] [place] [address] Platelets (Bld) [#/Vol] 234 10*3/uL Normal 150-450 [facility] Comment on above: Performed By: #### C BCA, CMP, 32891-3 #### [facility] ([id number]) [address] [place] [address] RBC COUNT 5.19 X10E12/L Normal 4.10-5.70 [facility] Comment on above: Performed By: #### C BCA, CMP, 74013-6 #### [facility] ([id number]) [address] [place] [address] WBC (Bld) [#/Vol] 9.4 10*3/uL Normal 4.0-11.0 [facility] Comment on above: Performed By: #### C BCA, CMP, 49286-8 #### [facility] ([id number]) [address] [place] [address] COMPREHENSIVE METABOLIC PANE [place] 09-25-2023 Albumin [Mass/Vol] 3.8 g/dL Normal 3.2-5.3 [facility] Comment on above: Performed By: #### C BCA, CMP, 43336-2 #### [facility] ([id number]) [address] [place] [address] ALP [Catalytic activity/Vol] 48 U/L Normal 39-130 [facility] Comment on above: Performed By: #### C BCA, CMP, 85937-7 #### [facility] ([id number]) [address] [place] [address] ALT [Catalytic activity/Vol] 65 U/L High 0-40 [facility] Comment on above: Performed By: #### C BCA, CMP, 78004-1 #### [facility] ([id number]) [address] [place] [address] Anion gap [Moles/Vol] 10 mmol/L Normal 5-15 [facility] Comment on above: Performed By: #### C BCA, CMP, 25293-2 #### [facility] ([id number]) [address] [place] [address] AST [Catalytic activity/Vol] 48 U/L High 0-41 [facility] Comment on above: Performed By: #### C BCA, CMP, 76242-4 #### [facility] ([id number]) [address] [place] [address] Bilirubin [Mass/Vol] 0.8 mg/dL Normal 0.3-1.2 [facility] Comment on above: Performed By: #### C BCA, CMP, 06424-1 #### [facility] ([id number]) [address] [place] [address] Calcium [Mass/Vol] 8.9 mg/dL Normal 8.5-10.5 [facility] Comment on above: Performed By: #### C BCA, CMP, 06648-1 #### [facility] ([id number]) [address] [place] [address] Chloride [Moles/Vol] 101 mmol/L Normal 98-109 [facility] Comment on above: Performed By: #### C BCA, CMP, 14265-0 #### [facility] ([id number]) [address] [place] [address] CO2 [Moles/Vol] 24 mmol/L Normal 22-32 [facility] Comment on above: Performed By: #### C BCA, CMP, 72440-7 #### [facility] ([id number]) [address] [place] [address] Creatinine [Mass/Vol] 0.85 mg/dL Normal 0.60-1.30 [facility] Comment on above: Result Comment: METH OD TRACEABLE TO IDMS STANDARD Performed By: #### C BCA, CMP, 19772-5 #### [facility] ([id number]) [address] [address] [place] [address] eGFR (CKD-EPI) NON-RACE DEPENDENT >90 Normal >59 [facility] Comment on above: Result Comment: Reported eGFR is based on the CKD-EPI 2020 equation that does not use a race coefficient. Performed By: #### C RADHA CMP, 66597-3 #### [facility] ([id number]) [address] [address] [place] [address] Glucose [Mass/Vol] 121 mg/dL High 65-99 [facility] Comment on above: Performed By: #### C RADHA, CMP, 38600-8 #### [facility] ([id number]) [address] [place] [address] Potassium [Moles/Vol] 4.4 mmol/L Normal 3.5-5.0 [facility] Comment on above: Performed By: #### C BCA, CMP, 91237-9 #### [facility] ([id number]) [address] [address] [place] [address] Protein [Mass/Vol] 7.3 g/dL Normal 6.0-8.0 [facility] Comment on above: Performed By: #### C BCA, CMP, 18891-6 #### [facility] ([id number]) [address] [address] [place] [address] Sodium [Moles/Vol] 135 mmol/L Normal 134-146 [facility] Comment on above: Performed By: #### C BCA, CMP, 53650-5 #### [facility] ([id number]) [address] [address] [place] [address] Urea nitrogen [Mass/Vol] 21 mg/dL Normal 5-27 [facility] Comment on above: Performed By: #### C BCA, CMP, 79626-5 #### [facility] ([id number]) [address] [place] [address] Glucose Glucometer (BldC) [M ass/Vol]on 09-25-2023 Glucose [Mass/Vol] 126 mg/dL High 65-99 [facility] Glucose [Mass/Vol] 112 mg/dL High 65-99 [facility] Glucose Poct Glucometerson 0 09-25-2023 Glucose [Mass/Vol] 130 mg/dL Normal [facility] Comment on above: Result Comment: [facility] Glucose Reference Range is dependent on time and content of last meal. Glucose of more than 200 mg/dL in a nonstressed, ambulatory subject supports the diagnosis of Diabetes Mellitus. PERFORMED BY: [place] [address] PATHOLOGIST MANAGER HEART DENIS PARADA M.D. Performed By: #### C BC, BMP #### [facility] [address] CBC AND AUTO DIFFon 09-24-19 ABSOLUTE BASOPHIL 0.1 X10E9/L Normal 0.0-0.2 [facility] Comment on above: Performed By: #### Susy GARCIA CMP, 20859-7 #### [facility] ([id number]) [address] [place] [address] ABSOLUTE NEUTROPHIL 6.2 X10E9/L Normal 1.5-6.6 [facility] Comment on above: Performed By: #### Susy GARCIA CMP, 27829-7 #### [facility] ([id number]) [address] [place] [address] Basophils/100 WBC (Bld) 0.6 % Normal [facility] Comment on above: Performed By: #### Susy GARCIA CMP, 86223-9 #### [facility] ([id number]) [address] [place] [address] Eosinophils (Bld) [#/Vol] 0.3 10*3/uL Normal 0.0-0.4 [facility] Comment on above: Performed By: #### C RADHA CMP, 69410-8 #### [facility] ([id number]) [address] [place] [address] Eosinophils/100 WBC (Bld) 3.3 % Normal [facility] Comment on above: Performed By: #### C RADHA CMP, 44058-1 #### [facility] ([id number]) [address] [place] [address] Erythrocyte distribution width (RBC) [Ratio] 13.4 % Normal 11.5-15.0 [facility] Comment on above: Performed By: #### Susy GARCIA CMP, 63692-3 #### [facility] ([id number]) [address] [place] [address] Hematocrit (Bld) [Volume fraction] 44.1 % Normal 39-49 [facility] Comment on above: Performed By: #### Susy GARCIA CMP, 57542-5 #### [facility] ([id number]) [address] [place] [address] Hemoglobin (Bld) [Mass/Vol] 14.9 g/dL Normal 13.0-17.0 [facility] Comment on above: Performed By: #### Susy GARCIA CMP, 47290-1 #### [facility] ([id number]) [address] [place] [address] Lymphocytes (Bld) [#/Vol] 1.6 10*3/uL Normal 1.0-3.5 [facility] Comment on above: Performed By: #### C RADHA, CMP, 50644-8 #### [facility] ([id number]) [address] [place] [address] Lymphocytes/100 WBC (Bld) 18.2 % Normal [facility] Comment on above: Performed By: #### C RADHA, CMP, 13841-2 #### [facility] ([id number]) [address] [place] [address] MCH (RBC) [Entitic mass] 28.6 pg Normal 27-34 [facility] Comment on above: Performed By: #### Susy GARCIA CMP, 85910-3 #### [facility] ([id number]) [address] [place] [address] MCHC (RBC) [Mass/Vol] 33.7 g/dL Normal 32-36 [facility] Comment on above: Performed By: #### Susy GARCIA, CMP, 02918-0 #### [facility] ([id number]) [address] [place] [address] MCV (RBC) [Entitic vol] 85 fL Normal 80-100 [facility] Comment on above: Performed By: #### Susy GARCIA CMP, 49079-6 #### [facility] ([id number]) [address] [place] [address] Monocytes (Bld) [#/Vol] 0.6 10*3/uL Normal 0-0.9 [facility] Comment on above: Performed By: #### Susy GARCIA, CMP, 07607-0 #### [facility] ([id number]) [address] [place] [address] Monocytes/100 WBC (Bld) 7.1 % Normal [facility] Comment on above: Performed By: #### Susy GARCIA, CMP, 73598-9 #### [facility] ([id number]) [address] [place] [address] Neutrophils/100 WBC (Bld) 70.8 % Normal [facility] Comment on above: Performed By: #### Susy GARCIA CMP, 30895-6 #### [facility] ([id number]) [address] [place] [address] Platelet mean volume (Bld) [Entitic vol] 8.5 fL Normal 7-12 [facility] Comment on above: Performed By: #### C RADHA, CMP, 07022-4 #### [facility] ([id number]) [address] [place] [address] Platelets (Bld) [#/Vol] 219 10*3/uL Normal 150-450 [facility] Comment on above: Performed By: #### C BCA, CMP, 75107-9 #### [facility] ([id number]) [address] [place] [address] RBC COUNT 5.18 X10E12/L Normal 4.10-5.70 [facility] Comment on above: Performed By: #### C BCA, CMP, 31711-6 #### [facility] ([id number]) [address] [place] [address] WBC (Bld) [#/Vol] 8.8 10*3/uL Normal 4.0-11.0 [facility] Comment on above: Performed By: #### C BCA, CMP, 73332-5 #### [facility] ([id number]) [address] [place] [address] COMPREHENSIVE METABOLIC PANE [place] 09-24-2023 Albumin [Mass/Vol] 3.6 g/dL Normal 3.2-5.3 [facility] Comment on above: Performed By: #### C BCA, CMP, 19539-8 #### [facility] ([id number]) [address] [place] [address] ALP [Catalytic activity/Vol] 48 U/L Normal 39-130 [facility] Comment on above: Performed By: #### C BCA, CMP, 76034-5 #### [facility] ([id number]) [address] [place] [address] ALT [Catalytic activity/Vol] 47 U/L High 0-40 [facility] Comment on above: Performed By: #### C RADHA CMP, 03554-8 #### [facility] ([id number]) [address] [place] [address] Anion gap [Moles/Vol] 8 mmol/L Normal 5-15 [facility] Comment on above: Performed By: #### C RADHA CMP, 34481-3 #### [facility] ([id number]) [address] [place] [address] AST [Catalytic activity/Vol] 27 U/L Normal 0-41 [facility] Comment on above: Performed By: #### C RADHA CMP, 03965-1 #### [facility] ([id number]) [address] [place] [address] Bilirubin [Mass/Vol] 1.0 mg/dL Normal 0.3-1.2 [facility] Comment on above: Performed By: #### C RADHA CMP, 97149-5 #### [facility] ([id number]) [address] [place] [address] Calcium [Mass/Vol] 8.7 mg/dL Normal 8.5-10.5 [facility] Comment on above: Performed By: #### C RADHA CMP, 15331-4 #### [facility] ([id number]) [address] [place] [address] Chloride [Moles/Vol] 99 mmol/L Normal 98-109 [facility] Comment on above: Performed By: #### C BCA, CMP, 70338-8 #### [facility] ([id number]) [address] [place] [address] CO2 [Moles/Vol] 27 mmol/L Normal 22-32 [facility] Comment on above: Performed By: #### C WINSOME GARCIA, 83860-8 #### [facility] ([id number]) [address] [address] [place] [address] Creatinine [Mass/Vol] 0.84 mg/dL Normal 0.60-1.30 [facility] Comment on above: Result Comment: METH OD TRACEABLE TO IDMS STANDARD Performed By: #### C WINSOME GARCIA, 45997-1 #### [facility] ([id number]) [address] [place] [address] eGFR (CKD-EPI) NON-RACE DEPENDENT >90 Normal >59 [facility] Comment on above: Result Comment: Reported eGFR is based on the CKD-EPI 2020 equation that does not use a race coefficient. Performed By: #### C WINSOME GARCIA, [id number] #### [facility] ([id number]) [address] [address] [place] [address] Glucose [Mass/Vol] 124 mg/dL High 65-99 [facility] [facility] Comment on above: Performed By: #### C WINSOME GARCIA, 76407-1 #### [facility] ([id number]) [address] [address] [place] [address] Potassium [Moles/Vol] 4.3 mmol/L Normal 3.5-5.0 [facility] Comment on above: Performed By: #### C WINSOME GARCIA, 19886-8 #### [facility] ([id number]) [address] [address] [place] [address] Protein [Mass/Vol] 6.8 g/dL Normal 6.0-8.0 [facility] Comment on above: Performed By: #### C WINSOME GARCIA, 35688-1 #### [facility] ([id number]) [address] [address] [place] [address] Sodium [Moles/Vol] 134 mmol/L Normal 134-146 [facility] Comment on above: Performed By: #### C RADHA CMP, 27084-4 #### [facility] ([id number]) [address] [place] [address] Urea nitrogen [Mass/Vol] 21 mg/dL Normal 5-27 [facility] Comment on above: Performed By: #### Susy GARCIA, CMP, 58084-4 #### [facility] ([id number]) [address] [place] [address] Glucose Glucometer (BldC) [M ass/Vol]on 09-24-2023 Glucose [Mass/Vol] 116 mg/dL High 65-99 [facility] Glucose [Mass/Vol] 137 mg/dL High 65-99 [facility] Glucose [Mass/Vol] 81 mg/dL Normal 65-99 [facility] Glucose [Mass/Vol] 144 mg/dL High 65-99 [facility] MAGNESIUMon 09-24-2023 Magnesium [Mass/Vol] 2.1 mg/dL Normal 1.8-2.6 [facility] Comment on above: Performed By: #### Susy GARCIA CMP, 59734-8 #### [facility] ([id number]) [address] [place] [address] Magnesium [Mass/Vol] 1.9 mg/dL Normal 1.8-2.6 [facility] Comment on above: Performed By: #### Susy GARCIA CMP, 36413-1 #### [facility] ([id number]) [address], [address] [place] [address] CBC AND AUTO DIFFon 09-23-19 24 ABSOLUTE BASOPHIL 0.0 X10E9/L Normal 0.0-0.2 [facility] Comment on above: Performed By: #### Susy GARCIA, CMP, 41366-6 ####[facility] ([id number])[address], [place] [address] ABSOLUTE NEUTROPHIL 6.0 X10E9/L Normal 1.5-6.6 [facility] Comment on above: Performed By: #### C WINSOME GARCIA, ####[facility] ([id number])[address] [address] Basophils/100 WBC (Bld) 0.5 % Normal [facility] Comment on above: Performed By: #### Susy GARCIA CMP, ####[facility] ([id number])[address] [address], [place] [address] Eosinophils (Bld) [#/Vol] 0.3 10*3/uL Normal 0.0-0.4 [facility] Comment on above: Performed By: #### Susy GARCIA CMP, ####[facility] ([id number])[address] [address], [place] [address] Eosinophils/100 WBC (Bld) 2.9 % Normal [facility] Comment on above: Performed By: #### Susy GARCIA [facility], ####[facility] ([id number])[address] [address] [address] Erythrocyte distribution width (RBC) [Ratio] 13.8 % Normal 11.5-15.0 [facility] Comment on above: Performed By: #### Susy GARCIA CMP, ####[facility] ([id number])[address] [address] [address] Hematocrit (Bld) [Volume fraction] 43.9 % Normal 39-49 [facility] Comment on above: Performed By: #### Susy GARCIA CMP, ####[facility] ([id number])[address] [address] [address] Hemoglobin (Bld) [Mass/Vol] 14.8 g/dL Normal 13.0-17.0 [facility] Comment on above: Performed By: #### C RADHA, CMP, ####[facility] ([id number])[address] [address] [place] [address] Lymphocytes (Bld) [#/Vol] 1.7 10*3/uL Normal 1.0-3.5 [facility] Comment on above: Performed By: #### Susy GARCIA, CMP, ####[facility] ([id number])[address], [address] [place] [address] Lymphocytes/100 WBC (Bld) 19.4 % Normal [facility] Comment on above: Performed By: #### Susy GARCIA CMP, ####[facility] ([id number])[address], [address] [place] [address] MCH (RBC) [Entitic mass] 28.7 pg Normal 27-34 [facility] Comment on above: Performed By: #### Susy GARCIA, CMP, ####[facility] ([id number])[address], [place] [address] MCHC (RBC) [Mass/Vol] 33.8 g/dL Normal 32-36 [facility] Comment on above: Performed By: #### Susy GARCIA CMP, ####[facility] ([id number])[address] [address] [place] [address] MCV (RBC) [Entitic vol] 85 fL Normal 80-100 [facility] Comment on above: Performed By: #### Susy GARCIA, CMP, ####[facility] ([id number])[address] [address] [place] [address] Monocytes (Bld) [#/Vol] 0.8 10*3/uL Normal 0-0.9 [facility] Comment on above: Performed By: #### Susy GARCIA, CMP, ####[facility] ([id number])[address], [place] [address] Monocytes/100 WBC (Bld) 9.1 % Normal [facility] Comment on above: Performed By: #### C RADHA, CMP, ####[facility] ([id number])[address], [place] [address] Neutrophils/100 WBC (Bld) 68.1 % Normal [facility] Comment on above: Performed By: #### C RADHA, CMP, ####[facility] ([id number])[address], [place] [address] Platelet mean volume (Bld) [Entitic vol] 8.7 fL Normal 7-12 [facility] Comment on above: Performed By: #### Susy GARCIA, CMP, ####[facility] ([id number])[address] [address], [place] [address] Platelets (Bld) [#/Vol] 214 10*3/uL Normal 150-450 [facility] Comment on above: Performed By: #### Susy GARCIA, CMP, ####[facility] ([id number])[address], [address], [place] [address] RBC COUNT 5.17 X10E12/L Normal 4.10-5.70 [facility] Comment on above: Performed By: #### Susy BCA, CMP, ####[facility] ([id number])[address], [place] [address] WBC (Bld) [#/Vol] 8.8 10*3/uL Normal 4.0-11.0 [facility] Comment on above: Performed By: #### Susy BCA, CMP, ####[facility] ([id number])[address], [place] [address] COMPREHENSIVE METABOLIC PANE [place] 09-23-2023 Albumin [Mass/Vol] 3.7 g/dL Normal 3.2-5.3 [facility] Comment on above: Performed By: #### C RADHA CMP, 83926-9 #### [facility] ([id number]) [address] [place] [address] ALP [Catalytic activity/Vol] 45 U/L Normal 39-130 [facility] Comment on above: Performed By: #### C RADHA, CMP, 13549-4 #### [facility] ([id number]) [address], [address] [place] [address] ALT [Catalytic activity/Vol] 54 U/L High 0-40 [facility] Comment on above: Performed By: #### Susy GARCIA CMP, 98551-5 #### [facility] ([id number]) [address] [place] [address] Anion gap [Moles/Vol] 10 mmol/L Normal 5-15 [facility] Comment on above: Performed By: #### Susy GARCIA CMP, 26413-5 #### [facility] ([id number]) [address] [place] [address] AST [Catalytic activity/Vol] 34 U/L Normal 0-41 [facility] Comment on above: Performed By: #### Susy GARCIA CMP, 96248-9 #### [facility] ([id number]) [address] [place] [address] Bilirubin [Mass/Vol] 1.0 mg/dL Normal 0.3-1.2 [facility] Comment on above: Performed By: #### C BCA, CMP, 78814-5 #### [facility] ([id number]) [address] [place] [address] Calcium [Mass/Vol] 8.7 mg/dL Normal 8.5-10.5 [facility] Comment on above: Performed By: #### C BCA, CMP, 39562-4 #### [facility] ([id number]) [address] [place] [address] Chloride [Moles/Vol] 101 mmol/L Normal 98-109 [facility] Comment on above: Performed By: #### C RADHA CMP, 39506-6 #### [facility] ([id number]) [address] [place] [address] CO2 [Moles/Vol] 27 mmol/L Normal 22-32 [facility] Comment on above: Performed By: #### C WINSOME GARCIA, 12322-9 #### [facility] ([id number]) [address] [place] [address] Creatinine [Mass/Vol] 0.86 mg/dL Normal 0.60-1.30 [facility] Comment on above: Result Comment: METH OD TRACEABLE TO IDMS STANDARD Performed By: #### C WINSOME GARCIA, 71752-8 #### [facility] ([id number]) [address] [place] [address] GFR/1.73 sq M.predicted among non-blacks MDRD (S/P/Bld) [Vol rate/Area] 90 mL/min/{1.73_m2} Normal >59 [facility] Comment on above: Result Comment: Reported eGFR is based on the CKD-EPI 2020 equation that does not use a race coefficient. Performed By: #### C BCA, CMP, 20077-6 #### [facility] ([id number]) [address] [place] [address] Glucose [Mass/Vol] 122 mg/dL High 65-99 [facility] Comment on above: Performed By: #### C BCA, CMP, 53176-2 #### [facility] ([id number]) [address] [place] [address] Potassium [Moles/Vol] 4.1 mmol/L Normal 3.5-5.0 [facility] Comment on above: Performed By: #### Susy GARCIA CMP, 41752-8 #### [facility] ([id number]) [address] [place] [address] Protein [Mass/Vol] 6.8 g/dL Normal 6.0-8.0 [facility] Comment on above: Performed By: #### C RADHA, CMP, 59489-1 #### [facility] ([id number]) [address] [place] [address] Sodium [Moles/Vol] 138 mmol/L Normal 134-146 [facility] Comment on above: Performed By: #### Susy GARCIA, CMP, 05231-8 #### [facility] ([id number]) [address] [place] [address] Urea nitrogen [Mass/Vol] 23 mg/dL Normal 5-27 [facility] Comment on above: Performed By: #### Susy GARCIA, CMP, 99049-4 #### [facility] ([id number]) [address] [place] [address] MAGNESIUMon 09-23-2023 Magnesium [Mass/Vol] 1.8 mg/dL Normal 1.8-2.6 [facility] Comment on above: Performed By: #### C BCA, CMP, 34800-7 #### [facility] ([id number]) [address], [address] [place] [address] CBC AND AUTO DIFFon 09-22-19 24 ABSOLUTE BASOPHIL 0.1 X10E9/L Normal 0.0-0.2 [facility] Comment on above: Performed By: #### C BCA, CMP, 74415-8 ####[facility] ([id number])[address], [place] [address] ABSOLUTE NEUTROPHIL 7.2 X10E9/L High 1.5-6.6 [facility] Comment on above: Performed By: #### Susy GARCIA CMP, ####[facility] ([id number])[address], [place] [address] Basophils/100 WBC (Bld) 0.5 % Normal [facility] Comment on above: Performed By: #### Susy GARCIA CMP, ####[facility] ([id number])[address] [address] Eosinophils (Bld) [#/Vol] 0.2 10*3/uL Normal 0.0-0.4 [facility] Comment on above: Performed By: #### Susy GARCIA CMP, ####[facility] ([id number])[address] [address] Eosinophils/100 WBC (Bld) 1.8 % Normal [facility] Comment on above: Performed By: #### Susy GARCIA CMP, ####[facility] ([id number])[address] [address] [address] Erythrocyte distribution width (RBC) [Ratio] 13.9 % Normal 11.5-15.0 [facility] Comment on above: Performed By: #### Susy GARCIA CMP, ####[facility] ([id number])[address] [address] [address] Hematocrit (Bld) [Volume fraction] 43.8 % Normal 39-49 [facility] Comment on above: Performed By: #### Susy GARCIA CMP, ####[facility] ([id number])[address] [address] Hemoglobin (Bld) [Mass/Vol] 15.0 g/dL Normal 13.0-17.0 [facility] Comment on above: Performed By: #### Susy GARCIA CMP, ####[facility] ([id number])[address] [address] Lymphocytes (Bld) [#/Vol] 1.6 10*3/uL Normal 1.0-3.5 [facility] Comment on above: Performed By: #### Susy GARCIA CMP, ####[facility] ([id number])[address] [address] Lymphocytes/100 WBC (Bld) 15.7 % Normal [facility] Comment on above: Performed By: #### Susy GARCIA CMP, ####[facility] ([id number])[address] [address] MCH (RBC) [Entitic mass] 29.1 pg Normal 27-34 [facility] Comment on above: Performed By: #### Susy GARCIA CMP, ####[facility] ([id number])[address], [place] [address] MCHC (RBC) [Mass/Vol] 34.1 g/dL Normal 32-36 [facility] Comment on above: Performed By: #### Susy GARCIA CMP, ####[facility] ([id number])[address] [place] [address] MCV (RBC) [Entitic vol] 85 fL Normal 80-100 [facility] Comment on above: Performed By: #### Susy GARCIA CMP, ####[facility] ([id number])[address] [address] Monocytes (Bld) [#/Vol] 1.0 10*3/uL High 0-0.9 [facility] Comment on above: Performed By: #### Susy GARCIA, CMP, ####[facility] ([id number])[address] [place] [address] Monocytes/100 WBC (Bld) 10.1 % Normal [facility] Comment on above: Performed By: #### C BCA, CMP, ####[facility] ([id number])[address] [place] [address] Neutrophils/100 WBC (Bld) 71.9 % Normal [facility] Comment on above: Performed By: #### C BCA, CMP, ####[facility] ([id number])[address] [place] [address] Platelet mean volume (Bld) [Entitic vol] 8.5 fL Normal 7-12 [facility] Comment on above: Performed By: #### Susy BCA, CMP, ####[facility] ([id number])[address] [address] Platelets (Bld) [#/Vol] 239 10*3/uL Normal 150-450 [facility] Comment on above: Performed By: #### C BCA, CMP, ####[facility] ([id number])[address] [place] [address] RBC COUNT 5.15 X10E12/L Normal 4.10-5.70 [facility] Comment on above: Performed By: #### C BCA, CMP, ####[facility] ([id number])[address] [place] [address] WBC (Bld) [#/Vol] 10.0 10*3/uL Normal 4.0-11.0 [facility] Comment on above: Performed By: #### C BCA, CMP, ####[facility] ([id number])[address], [place] [address] COMPREHENSIVE METABOLIC PANE [place] 09-22-2023 Albumin [Mass/Vol] 3.8 g/dL Normal 3.2-5.3 [facility] Comment on above: Performed By: #### C BCA, CMP, 95959-6 ####[facility] ([id number])[address], [place] [address] ALP [Catalytic activity/Vol] 49 U/L Normal 39-130 [facility] Comment on above: Performed By: #### C BCA, CMP, ####[facility] ([id number])[address], [place] [address] ALT [Catalytic activity/Vol] 60 U/L High 0-40 [facility] Comment on above: Performed By: #### C BCA, CMP, ####[facility] ([id number])[address], [place] [address] Anion gap [Moles/Vol] 8 mmol/L Normal 5-15 [facility] Comment on above: Performed By: #### C BCA, CMP, ####[facility] ([id number])[address], [place] [address] AST [Catalytic activity/Vol] 51 U/L High 0-41 [facility] Comment on above: Performed By: #### C BCA, CMP, ####[facility] ([id number])[address], [place] [address] Bilirubin [Mass/Vol] 0.7 mg/dL Normal 0.3-1.2 [facility] Comment on above: Performed By: #### C BCA, CMP, ####[facility] ([id number])[address], [place] [address] Calcium [Mass/Vol] 8.8 mg/dL Normal 8.5-10.5 [facility] Comment on above: Performed By: #### C WINSOME GARCIA, 01250-4 ####[facility] ([id number])[address], [place] [address] Chloride [Moles/Vol] 99 mmol/L Normal 98-109 [facility] Comment on above: Performed By: #### C WINSOME GARCIA, ####[facility] ([id number])[address], [place] [address] CO2 [Moles/Vol] 31 mmol/L Normal 22-32 [facility] Comment on above: Performed By: #### C WINSOME GARCIA, ####[facility] ([id number])[address], [place] [address] Creatinine [Mass/Vol] 1.02 mg/dL Normal 0.60-1.30 [facility] Comment on above: Result Comment: METH OD TRACEABLE TO IDMS STANDARD Performed By: #### C WINSOME GARCIA, 19152-8 ####[facility] ([id number])[address], [place] [address] GFR/1.73 sq M.predicted among non-blacks MDRD (S/P/Bld) [Vol rate/Area] 76 mL/min/{1.73_m2} Normal >59 [facility] Comment on above: Result Comment: Reported eGFR is based on the CKD-EPI 2020 equation that does not use a race coefficient. Performed By: #### C WINSOME GARCIA, ####[facility] ([id number])[address], [place] [address] Glucose [Mass/Vol] 127 mg/dL High 65-99 [facility] Comment on above: Performed By: #### C WINSOME GARCIA, ####[facility] ([id number])[address], [place] [address] Potassium [Moles/Vol] 4.3 mmol/L Normal 3.5-5.0 [facility] Comment on above: Performed By: #### C RADHA CMP, 39483-6 ####[facility] ([id number])[address], [place] [address] Protein [Mass/Vol] 7.0 g/dL Normal 6.0-8.0 [facility] Comment on above: Performed By: #### Susy GARCIA CMP, ####[facility] ([id number])[address], [place] [address] Sodium [Moles/Vol] 138 mmol/L Normal 134-146 [facility] Comment on above: Performed By: #### Susy GARCIA CMP, ####[facility] ([id number])[address] [place] [address] Urea nitrogen [Mass/Vol] 30 mg/dL High 5-27 [facility] Comment on above: Performed By: #### Susy GARCIA CMP, ####[facility] ([id number])[address] [address] Glucose Glucometer (BldC) [M ass/Vol]on 09-22-2023 Glucose [Mass/Vol] 119 mg/dL High 65-99 [facility] Glucose [Mass/Vol] 140 mg/dL High 65-99 [facility] MAGNESIUMon 09-22-2023 Magnesium [Mass/Vol] 2.0 mg/dL Normal 1.8-2.6 [facility] Comment on above: Performed By: #### Susy BCA, CMP, ####[facility] ([id number])[address], [place] [address] CBC AND AUTO DIFFon 09-21-19 24 ABSOLUTE BASOPHIL 0.0 X10E9/L Normal 0.0-0.2 [facility] Comment on above: Performed By: #### Susy GARCIA CMP, #### [facility] ([id number]) [address] [place] [address] ABSOLUTE NEUTROPHIL 8.1 X10E9/L High 1.5-6.6 [facility] Comment on above: Performed By: #### Susy GARCIA CMP, #### [facility] ([id number]) [address] [place] [address] Basophils/100 WBC (Bld) 0.4 % Normal [facility] Comment on above: Performed By: #### Susy GARCIA CMP, #### [facility] ([id number]) [address] [place] [address] Eosinophils (Bld) [#/Vol] 0.0 10*3/uL Normal 0.0-0.4 [facility] Comment on above: Performed By: #### Susy GARCIA CMP, #### [facility] ([id number]) [address] [place] [address] Eosinophils/100 WBC (Bld) 0.5 % Normal [facility] Comment on above: Performed By: #### Susy GARCIA CMP, #### [facility] ([id number]) [address] [place] [address] Erythrocyte distribution width (RBC) [Ratio] 13.9 % Normal 11.5-15.0 [facility] Comment on above: Performed By: #### Susy GARCIA CMP, #### [facility] ([id number]) [address] [place] [address] Hematocrit (Bld) [Volume fraction] 43.5 % Normal 39-49 [facility] Comment on above: Performed By: #### C BCA, CMP, 29384-3 #### [facility] ([id number]) [address], [address] [place] [address] Hemoglobin (Bld) [Mass/Vol] 14.7 g/dL Normal 13.0-17.0 [facility] Comment on above: Performed By: #### C RADHA, CMP, #### [facility] ([id number]) [address], [address] [place] [address] Lymphocytes (Bld) [#/Vol] 1.8 10*3/uL Normal 1.0-3.5 [facility] Comment on above: Performed By: #### C RADHA CMP, #### [facility] ([id number]) [address], [address] [place] [address] Lymphocytes/100 WBC (Bld) 16.6 % Normal [facility] Comment on above: Performed By: #### Susy GARCIA, CMP, 48642-4 #### [facility] ([id number]) [address], [address] [place] [address] MCH (RBC) [Entitic mass] 28.6 pg Normal 27-34 [facility] Comment on above: Performed By: #### Susy GARCIA CMP, #### [facility] ([id number]) [address], [address] [place] [address] MCHC (RBC) [Mass/Vol] 33.8 g/dL Normal 32-36 [facility] Comment on above: Performed By: #### C RADHA, CMP, #### [facility] ([id number]) [address], [address] [place] [address] MCV (RBC) [Entitic vol] 85 fL Normal 80-100 [facility] Comment on above: Performed By: #### C BCA, CMP, #### [facility] ([id number]) [address], [address] [place] [address] Monocytes (Bld) [#/Vol] 0.9 10*3/uL Normal 0-0.9 [facility] Comment on above: Performed By: #### C BCA, CMP, #### [facility] ([id number]) [address], [address] [place] [address] Monocytes/100 WBC (Bld) 7.9 % Normal [facility] Comment on above: Performed By: #### C BCA, CMP, #### [facility] ([id number]) [address], [address] [place] [address] Neutrophils/100 WBC (Bld) 74.6 % Normal [facility] Comment on above: Performed By: #### Susy BCA, CMP, #### [facility] ([id number]) [address], [address] [place] [address] Platelet mean volume (Bld) [Entitic vol] 8.3 fL Normal 7-12 [facility] Comment on above: Performed By: #### C BCA, CMP, #### [facility] ([id number]) [address], [address] [place] [address] Platelets (Bld) [#/Vol] 235 10*3/uL Normal 150-450 [facility] Comment on above: Performed By: #### C BCA, CMP, #### [facility] ([id number]) [address], [address] [place] [address] RBC COUNT 5.15 X10E12/L Normal 4.10-5.70 [facility] Comment on above: Performed By: #### C BCA, CMP, #### [facility] ([id number]) [address], [address] [place] [address] WBC (Bld) [#/Vol] 10.8 10*3/uL Normal 4.0-11.0 [facility] Comment on above: Performed By: #### C BCA, CMP, #### [facility] ([id number]) [address], [address] [place] [address] COMPREHENSIVE METABOLIC PANE Te[place] 09-21-2023 Albumin [Mass/Vol] 4.0 g/dL Normal 3.2-5.3 [facility] Comment on above: Performed By: #### C RADHA, CMP, #### [facility] ([id number]) [address], [address] [place] [address] ALP [Catalytic activity/Vol] 48 U/L Normal 39-130 [facility] Comment on above: Performed By: #### C BCA, CMP, #### [facility] ([id number]) [address], [address] [place] [address] ALT [Catalytic activity/Vol] 36 U/L Normal 0-40 [facility] Comment on above: Performed By: #### C BCA, CMP, #### [facility] ([id number]) [address], [address] [place] [address] Anion gap [Moles/Vol] 11 mmol/L Normal 5-15 [facility] Comment on above: Performed By: #### C BCA, CMP, #### [facility] ([id number]) [address], [address] [place] [address] AST [Catalytic activity/Vol] 37 U/L Normal 0-41 [facility] Comment on above: Performed By: #### C BCA, CMP, #### [facility] ([id number]) [address], [address] [place] [address] Bilirubin [Mass/Vol] 1.0 mg/dL Normal 0.3-1.2 [facility] Comment on above: Performed By: #### C WINSOME GARCIA, #### [facility] ([id number]) [address], [address] [place] [address] Calcium [Mass/Vol] 8.8 mg/dL Normal 8.5-10.5 [facility] Comment on above: Performed By: #### C RADHA CMP, #### [facility] ([id number]) [address], [address] [place] [address] Chloride [Moles/Vol] 99 mmol/L Normal 98-109 [facility] Comment on above: Performed By: #### C WINSOME GARCIA, #### [facility] ([id number]) [address], [address] [place] [address] CO2 [Moles/Vol] 29 mmol/L Normal 22-32 [facility] Comment on above: Performed By: #### C WINSOME GARCIA, #### [facility] ([id number]) [address], [address] [place] [address] Creatinine [Mass/Vol] 0.99 mg/dL Normal 0.60-1.30 [facility] Comment on above: Result Comment: METH OD TRACEABLE TO IDMS STANDARD Performed By: #### C RADHA CMP, #### [facility] ([id number]) [address], [address] [place] [address] GFR/1.73 sq M.predicted among non-blacks MDRD (S/P/Bld) [Vol rate/Area] 79 mL/min/{1.73_m2} Normal >59 [facility] Comment on above: Result Comment: Reported eGFR is based on the CKD-EPI 2020 equation that does not use a race coefficient. Performed By: #### C BCA CMP, #### [facility] ([id number]) [address], [address] [place] [address] Glucose [Mass/Vol] 127 mg/dL High 65-99 [facility] Comment on above: Performed By: #### C BCA, CMP, #### [facility] ([id number]) [address], [address] [place] [address] Potassium [Moles/Vol] 3.8 mmol/L Normal 3.5-5.0 [facility] Comment on above: Performed By: #### C BCA, CMP, #### [facility] ([id number]) [address], [address] [place] [address] Protein [Mass/Vol] 7.2 g/dL Normal 6.0-8.0 [facility] Comment on above: Performed By: #### C BCA, CMP, #### [facility] ([id number]) [address], [address] [place] [address] Sodium [Moles/Vol] 139 mmol/L Normal 134-146 [facility] Comment on above: Performed By: #### C BCA, CMP, #### [facility] ([id number]) [address], [address] [place] [address] Urea nitrogen [Mass/Vol] 34 mg/dL High 5-27 [facility] Comment on above: Performed By: #### C BCA, CMP, #### [facility] ([id number]) [address], [address] [place] [address] HGB A1C (GLYCO-HGB)on 2023 Glucose [Mass/Vol] 137 mg/dL Normal [facility] Comment on above: Performed By: #### C BCA, CMP, ####[facility] ([id number])[address], [address], [place] [address] HbA1c (Bld) [Mass fraction] 6.4 % High 4.4-5.6 [facility] Comment on above: Result Comment: NOTE ADA Guidelines Result HgbA1c Normal : less than 5.7 % Prediabetes : 5.7 % to 6.4 % Diabetes : > 6.4 % Use with caution in patients with abnormal hemoglobin variants as the half-life of red blood cells and in vivo glycation rates are affected. Performed By: #### C RADHA [facility], 70796-4 ####[facility] ([id number])[address] [address] [place] [address] MAGNESIUMon 09-21-2023 Magnesium [Mass/Vol] 2.3 mg/dL Normal 1.8-2.6 [facility] Comment on above: Performed By: #### 1 9123-9 ####[facility] ([id number])[address] [address] [place] [address] Magnesium [Mass/Vol] 1.8 mg/dL Normal 1.8-2.6 [facility] Comment on above: Performed By: #### C RADHA, [facility], 29443-4 ####[facility] ([id number])[address] [address] [place] [address] URINALYSISon 09-21-2023 Bilirubin Ql (U) Negative Normal NEG [facility] Comment on above: Performed By: #### U A ####[facility] ([id number])[address] [address] [place] [address] BLOOD/HGB Negative Normal NEG [facility] Comment on above: Performed By: #### U A ####[facility] ([id number])[address] [address], [place] [address] Color (U) YELLOW Normal YELLOW [facility] Comment on above: Performed By: #### U A ####[facility] ([id number])[address], [address] [place] [address] Glucose Ql (U) Negative Normal NEG [facility] Comment on above: Performed By: #### U A ####[facility] ([id number])[address], [address] [place] [address] Ketones Ql (U) Negative Normal NEG [facility] Comment on above: Performed By: #### U A ####[facility] ([id number])[address], [address] [place] [address] Leukocyte esterase Test strip Ql (U) Negative Normal NEG [facility] Comment on above: Performed By: #### U A ####[facility] ([id number])[address], [address] [place] [address] MUCOUS PRESENT Abnormal NONE [facility] Comment on above: Performed By: #### U A ####[facility] ([id number])[address], [address] [place] [address] Nitrite Ql (U) Negative Normal NEG [facility] Comment on above: Performed By: #### U A ####[facility] ([id number])[address], [address] [place] [address] pH (U) 6.0 [pH] Normal 5.0-8.5 [facility] Comment on above: Performed By: #### U A ####[facility] ([id number])[address], [address] [place] [address] Protein Ql (U) Trace Abnormal NEG [facility] Comment on above: Performed By: #### U A ####[facility] ([id number])[address], [address] [place] [address] R.B.CELLS 3 /hpf Normal 0-5 [facility] Comment on above: Performed By: #### U A ####[facility] ([id number])[address] [address] Specific gravity (U) [Rel density] 1.023 Normal 1.003-1.03 5 [facility] Comment on above: Performed By: #### U A ####[facility] ([id number])[address] [address] TURBIDITY CLEAR Normal CLEAR [facility] Comment on above: Performed By: #### U A ####[facility] ([id number])[address] [address] Urinalysis dipstick W Reflex Microscopic panel (U) URINE RECEIVED WITHOUT PRESERVATIVE-DELAYS IN TRANSPORT MAY AFFECT RESULTS.INTERPRET WITH CAUTION AND CLINICAL CORRELATION IS RECOMMENDED. Normal [facility] Comment on above: Performed By: #### U A ####[facility] ([id number])[address] [address] Urobilinogen (U) [Mass/Vol] mg/dL Normal <1.1 [facility] Comment on above: Performed By: #### U A ####[facility] ([id number])[address] [address] W.B.CELLS 2 /hpf Normal 0-5 [facility] Comment on above: Performed By: #### U A ####[facility] ([id number])[address] [address] CBC AND AUTO DIFFon 09-20-19 24 ABSOLUTE BASOPHIL 0.1 X10E9/L Normal 0.0-0.2 [facility] Comment on above: Performed By: #### C BCA, CMP, 90365-0 #### [facility] ([id number]) [address], [address] [place] [address] ABSOLUTE NEUTROPHIL 11.3 X10E9/L High 1.5-6.6 [facility] Comment on above: Performed By: #### Susy GARCIA CMP, 17229-6 #### [facility] ([id number]) [address], [address] [place] [address] Basophils/100 WBC (Bld) 0.5 % Normal [facility] Comment on above: Performed By: #### Susy GARCIA CMP, 18841-6 #### [facility] ([id number]) [address], [address] [place] [address] Eosinophils (Bld) [#/Vol] 0.0 10*3/uL Normal 0.0-0.4 [facility] Comment on above: Performed By: #### Susy GARCIA CMP, 98351-7 #### [facility] ([id number]) [address], [address] [place] [address] Eosinophils/100 WBC (Bld) 0.0 % Normal [facility] Comment on above: Performed By: #### Susy GARCIA CMP, 23005-6 #### [facility] ([id number]) [address], [address] [place] [address] Erythrocyte distribution width (RBC) [Ratio] 13.8 % Normal 11.5-15.0 [facility] Comment on above: Performed By: #### Susy GARCIA CMP, 03500-2 #### [facility] ([id number]) [address], [address] [place] [address] Hematocrit (Bld) [Volume fraction] 45.3 % Normal 39-49 [facility] Comment on above: Performed By: #### Susy GARCIA CMP, 28642-5 #### [facility] ([id number]) [address], [address] [place] [address] Hemoglobin (Bld) [Mass/Vol] 15.3 g/dL Normal 13.0-17.0 [facility] Comment on above: Performed By: #### Susy GARCIA CMP, 33404-0 #### [facility] ([id number]) [address], [address] [place] [address] Lymphocytes (Bld) [#/Vol] 0.5 10*3/uL Low 1.0-3.5 [facility] Comment on above: Performed By: #### Susy GARCIA CMP, 52331-8 #### [facility] ([id number]) [address], [address] [place] [address] Lymphocytes/100 WBC (Bld) 4.2 % Normal [facility] Comment on above: Performed By: #### Susy GARCIA CMP, 56318-3 #### [facility] ([id number]) [address], [address] [place] [address] MCH (RBC) [Entitic mass] 28.5 pg Normal 27-34 [facility] Comment on above: Performed By: #### Susy GARCIA CMP, 39482-1 #### [facility] ([id number]) [address], [address] [place] [address] MCHC (RBC) [Mass/Vol] 33.7 g/dL Normal 32-36 [facility] Comment on above: Performed By: #### Susy GARCIA CMP, 22436-3 #### [facility] ([id number]) [address], [address] [place] [address] MCV (RBC) [Entitic vol] 85 fL Normal 80-100 [facility] Comment on above: Performed By: #### Susy GARCIA CMP, 52524-6 #### [facility] ([id number]) [address], [address] [place] [address] Monocytes (Bld) [#/Vol] 0.4 10*3/uL Normal 0-0.9 [facility] Comment on above: Performed By: #### C RADHA, CMP, 50948-8 #### [facility] ([id number]) [address], [address] [place] [address] Monocytes/100 WBC (Bld) 3.0 % Normal [facility] Comment on above: Performed By: #### C BCA, CMP, 91591-9 #### [facility] ([id number]) [address], [address] [place] [address] Neutrophils/100 WBC (Bld) 92.3 % Normal [facility] Comment on above: Performed By: #### C RADHA, CMP, 92115-1 #### [facility] ([id number]) [address], [address] [place] [address] Platelet mean volume (Bld) [Entitic vol] 8.2 fL Normal 7-12 [facility] Comment on above: Performed By: #### Susy GARCIA, CMP, 68350-8 #### [facility] ([id number]) [address], [address] [place] [address] Platelets (Bld) [#/Vol] 262 10*3/uL Normal 150-450 [facility] Comment on above: Performed By: #### Susy GARCIA, CMP, 21995-0 #### [facility] ([id number]) [address], [address] [place] [address] RBC COUNT 5.35 X10E12/L Normal 4.10-5.70 [facility] Comment on above: Performed By: #### C BCA, CMP, 49183-3 #### [facility] ([id number]) [address], [address] [place] [address] WBC (Bld) [#/Vol] 12.2 10*3/uL High 4.0-11.0 [facility] Comment on above: Performed By: #### C BCA, CMP, 51731-4 #### [facility] ([id number]) [address], [address] [place] [address] COMPREHENSIVE METABOLIC PANE [place] 09-20-2023 Albumin [Mass/Vol] 4.1 g/dL Normal 3.2-5.3 [facility] Comment on above: Performed By: #### C BCA, CMP, 62599-3 #### [facility] ([id number]) [address], [address] [place] [address] ALP [Catalytic activity/Vol] 46 U/L Normal 39-130 [facility] Comment on above: Performed By: #### C BCA, CMP, 40925-1 #### [facility] ([id number]) [address], [address] [place] [address] ALT [Catalytic activity/Vol] 16 U/L Normal 0-40 [facility] Comment on above: Performed By: #### C BCA, CMP, 70967-6 #### [facility] ([id number]) [address], [address] [place] [address] Anion gap [Moles/Vol] 10 mmol/L Normal 5-15 [facility] Comment on above: Performed By: #### C BCA, CMP, 43532-5 #### [facility] ([id number]) [address], [address] [place] [address] AST [Catalytic activity/Vol] 21 U/L Normal 0-41 [facility] Comment on above: Performed By: #### C BCA, CMP, 34061-4 #### [facility] ([id number]) [address], [address] [place] [address] Bilirubin [Mass/Vol] 0.8 mg/dL Normal 0.3-1.2 [facility] Comment on above: Performed By: #### C BCA, CMP, 62302-1 #### [facility] ([id number]) [address], [address] [place] [address] Calcium [Mass/Vol] 9.4 mg/dL Normal 8.5-10.5 [facility] Comment on above: Performed By: #### C WINSOME GARCIA, 67427-2 #### [facility] ([id number]) [address], [address] [place] [address] Chloride [Moles/Vol] 101 mmol/L Normal 98-109 [facility] Comment on above: Performed By: #### C WINSOME GARCIA, 64335-1 #### [facility] ([id number]) [address], [address] [place] [address] CO2 [Moles/Vol] 28 mmol/L Normal 22-32 [facility] Comment on above: Performed By: #### C WINSOME GARCIA, 38688-4 #### [facility] ([id number]) [address], [address] [place] [address] Creatinine [Mass/Vol] 1.03 mg/dL Normal 0.60-1.30 [facility] Comment on above: Result Comment: METH OD TRACEABLE TO IDMS STANDARD Performed By: #### C WINSOME GARCIA, 75264-6 #### [facility] ([id number]) [address], [address] [place] [address] GFR/1.73 sq M.predicted among non-blacks MDRD (S/P/Bld) [Vol rate/Area] 75 mL/min/{1.73_m2} Normal >59 [facility] Comment on above: Result Comment: Reported eGFR is based on the CKD-EPI 2020 equation that does not use a race coefficient. Performed By: #### C WINSOME GARCIA, 84672-6 #### [facility] ([id number]) [address], [address] [place] [address] Glucose [Mass/Vol] 156 mg/dL High 65-99 [facility] Comment on above: Performed By: #### C WINSOME GARCIA, 15485-9 #### [facility] ([id number]) [address], [address] [place] [address] Potassium [Moles/Vol] 4.5 mmol/L Normal 3.5-5.0 [facility] Comment on above: Performed By: #### Susy GARCIA CMP, 63613-6 #### [facility] ([id number]) [address], [address] [place] [address] Protein [Mass/Vol] 7.4 g/dL Normal 6.0-8.0 [facility] Comment on above: Performed By: #### Susy GARCIA CMP, 18462-3 #### [facility] ([id number]) [address], [address] [place] [address] Sodium [Moles/Vol] 139 mmol/L Normal 134-146 [facility] Comment on above: Performed By: #### Susy GARCIA CMP, 43561-3 #### [facility] ([id number]) [address], [address] [place] [address] Urea nitrogen [Mass/Vol] 28 mg/dL High 5-27 [facility] Comment on above: Performed By: #### Susy GARCIA CMP, 56205-1 #### [facility] ([id number]) [address] [place] [address] Glucose Glucometer (BldC) [M ass/Vol]on 09-20-2023 Glucose [Mass/Vol] 150 mg/dL High 65-99 [facility] Glucose [Mass/Vol] 208 mg/dL High 65-99 [facility] Lipid 1996 panelon Cholesterol [Mass/Vol] 183 mg/dL Normal 150-200 [facility] Comment on above: Performed By: #### C RADHA, CMP, 28683-5 #### [facility] ([id number]) [address] [place] [address] Cholesterol in HDL [Mass/Vol] 36 mg/dL Low >39 [facility] Comment on above: Result Comment: HDL <40 mg/dL - High Risk HDL > or = 40mg/dL- Desirable HDL >60 mg/dL - Negative Risk Performed By: #### C BCA, CMP, 83716-4 #### [facility] ([id number]) [address] [place] [address] Cholesterol in LDL [Mass/Vol] 123 mg/dL Normal <130 [facility] Comment on above: Result Comment: LDL <100 mg/dL - Desirable LDL >160 mg/dL - High Risk Performed By: #### C BCA, CMP, 88984-8 #### [facility] ([id number]) [address], [address] [place] [address] Cholesterol in VLDL [Mass/Vol] 24 mg/dL Normal 0-30 [facility] Comment on above: Performed By: #### C BCA, CMP, 26329-4 #### [facility] ([id number]) [address], [address] [place] [address] CHOLESTEROL:HDL 5.1 High 1.0-5.0 [facility] Comment on above: Performed By: #### C BCA, CMP, 39339-5 #### [facility] ([id number]) [address], [address] [place] [address] Triglyceride [Mass/Vol] 122 mg/dL Normal 27-150 [facility] Comment on above: Performed By: #### C BCA, CMP, 68806-9 #### [facility] ([id number]) [address] [place] [address] MR BRAIN W WO CONTon 024 MR BRAIN W WO CONT MR BRAIN W WO CONT MR BRAIN W WO CONT HISTORY: Stroke, follow up. Neurologic deficit. TECHNIQUE: Multiplanar multisequence MR of the brain was performed prior to and following the uncomplicated administration of ProHance intravenous contrast. COMPARISON: None. FINDINGS: Acute ischemia throughout throughout much of left PICA territory [sparing lateral medulla], dense petechial hemorrhages as well as multifocal small acute/early subacute parenchymal hematomas [larger measures 1.6 cm]. Associated dense petechial hemorrhage. Mild mass effect without signs of impending herniation. Abnormal left vertebral artery V4 segment flow-void. Questionable abnormal enhancement about left vertebral artery throughout the cranial V2 and V3 segments. Irregular narrowing right greater than left cavernous internal carotid arteries, right M1 and proximal M2 MCA branches. No acute intracranial hemorrhage elsewhere. Large region of encephalomalacia posterior right cerebral hemisphere. Sequelae remote hemorrhagic infarct right lenticular striates. Moderate to advanced global parenchymal volume loss. Disproportionate effacement of the subarachnoid space of the calvarial vertex with widening of the sylvian fissures. IMPRESSION: 1. Ischemia throughout much of left PICA territory, hemorrhagic conversion with dense petechial hemorrhage and multifocal parenchymal hematomas [larger hematoma measures approximately 1.6 cm. No associated pathologic enhancement. 2. Abnormal left vertebral artery V4 segment flow-void. Multifocal additional significant luminal narrowing notably cavernous right ICA, right M1 and M2 segments the MCA. Finalized by Levon Pryor MD on 09/20/2023 5:10 AM Normal [facility] PROTIME AND INRon 09-20-2023 INR Coag (PPP) [Relative time] 1.1 {INR} Normal 0.8-1.1 [facility] Comment on above: Performed By: #### P INR, 51883-6 #### [facility] ([id number]) [address] [place] [address] PT Coag (PPP) [Time] 12.5 s Normal 9.8-13.2 [facility] Comment on above: Performed By: #### P INR, 67700-1 #### [facility] ([id number]) [address] [facility] [facility] [place] [address] aPTT Coag (PPP) [Time]on aPTT Coag (Bld) [Time] 44 s High 26-37 [facility] Comment on above: Performed By: #### P INR, 09147-6 #### [facility] ([id number]) [address] [facility], [address] [place] [address] Office Visit (Cardiology)on 05-04-2023 Follow-up visit Diagnoses/Problems Assessed 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 (414.01,413.9) (I25.119) Hypertension (401.9) (I10) Hyperlipidemia (272.4) (E78.5) History of PTCA 2 (V45.82) (Z98.61) History of myocardial infarction (412) (I25.2) History of CVA (cerebrovascular accident) (V12.54) (Z86.73) H/O carotid endarterectomy (V45.89) (Z98.890) Overweight with body mass index (BMI) of 25 to 25.9 in adult (278.02,V85.21) (E66.3,Z68.25) Orders 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 Renew: Aspirin 81 MG Oral Tablet Delayed Release; TAKE 1 TABLET DAILY 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, Hyperlipidemia, Hypertension ALT - Alanine Aminotransferase, Serum; Status:Active - Retrospective Authorization; Requested for:[id number]; AST; Status:Active - Retrospective Authorization; Requested for:[id number]; Lipid Panel; Status:Active - Retrospective Authorization; Requested for:[id number]; 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, Hypertension Renew: Metoprolol Tartrate 25 MG Oral Tablet; Take 1/2 tablet two times daily Hyperlipidemia Renew: Simvastatin 40 MG Oral Tablet; TAKE 1 TABLET AT BEDTIME Overweight with body mass index (BMI) of 25 to 25.9 in adult Healthy Weight Tips; Status:Complete - Retrospective Authorization; Done: [id number] Some eating tips that can help you lose weight.; Status:Complete - Retrospective Authorization; Done: 04May2023 Patient Instructions Please bring all medicines, vitamins, and herbal supplements with you when you come to the office. Prescriptions will not be filled unless you are compliant with your follow up appointments or have a follow up appointment scheduled as per instruction of your physician. Refills should be requested at the time of your visit. Follow up in 1 year Chief Complaint JANICE SHULTZ is being seen for an annual follow-up of. Healthy 78-year-old gentleman returns for annual follow-up and is doing exceedingly well. He remains very active, golfing on a regular basis, completely asymptomatic. He is physically fit, rides his bicycle on a regular basis. He had remote PCI of the RCA in 2014 with no further cardiovascular events, hospitalizations. Last stress testing in 2020 was normal. Recommendations, continue active lifestyle and habits, obtain a lipid panel we will follow-up in 1 year Surgical History Problems History of Back surgery History of Carotid artery angioplasty Denied: History of Complete colonoscopy History of Hernia repair History of Percutaneous transluminal coronary angioplasty Current Meds Medication NameInstruction Aspirin 81 MG Oral Tablet Delayed ReleaseTAKE 1 TABLET DAILY. Metoprolol Tartrate 25 MG Oral TabletTake 1/2 tablet two times daily Nitroglycerin 0.4 MG Sublingual Tablet SublingualPLACE 1 TABLET UNDER THE TONGUE EVERY 5 MINUTES FOR UP TO 3 DOSES NEEDED FOR CHEST PAIN.CALL 911 IF PAIN PERSISTS. Simvastatin 40 MG Oral TabletTAKE 1 TABLET AT BEDTIME Allergies Medication No Known Drug Allergies Recorded By: Destinee Boone; 05/09/2021 10:28:23 AM Social History Problems Daily caffeine consumption, 1 serving a day Never a smoker No illicit drug use Occasional alcohol use Review of Systems Constitutional: not feeling tired. Cardiovascular: no intermittent leg claudication and as noted in HPI. Respiratory: no cough and no shortness of breath. Gastrointestinal: no change in bowel habits and no blood in stools. Integumentary: no skin rashes. Neurological: no seizures and no frequent falls. All other systems have been reviewed and are negative for complaint. Vitals Vital Signs Recorded: 04May2023 10:26AM Heart Rate62, R Radial Figbrxbs671, RUE, Sitting Epjhkihfk46, RUE, Sitting Height5 ft 11 in Mwzcgq186 lb BMI Zltijdigti72.8 kg/m2 BSA Calculated2.04 Tobacco Useb) No PHQ-2 #1. Over the last 2 weeks have you felt down, depressed or hopeless? (If yes, answer PHQ-9 below)No PHQ-2 #2. Over the last 2 weeks have you felt little interest or pleasure in doing things? (If yes, answer PHQ-9 below)No Falls Screening (Age 18+)a) No falls within the last year Physical Exam Constitutional: alert and in no acute distress. Neck: neck is supple, symmetric, trachea midline, no masses and no thyromegaly . Pulmonary: no increased work of breathing or signs of respiratory distress and lungs clear to auscultation. Cardiovascular: carotid pulses 2+ bilaterally with no bruit , JVP was normal, no thrills , regular rhythm, normal S1 and S2, no murmurs , pedal pulses 2+ bilaterally and no edema . Abdomen: abdomen non-tender, no masses and no hepatomegaly . Skin: skin warm and dry, normal skin turgor . Psychiatric judgment and insight is normal and oriented to person, place and time . Signatures Electronically signed by : Lake Evangelista DO; May 04 2023 2:06PM EST (Aut (more content not included)... 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 Both carotid bifurcations show some smooth homogeneous plaque formation. The proximal right internal carotid artery shows a highest peak systolic velocity of 27 cm/s with an end-diastolic velocity of 7.1 cm/s . The mid internal carotid artery measures 26.6 cm/s peak systolic with an end diastolic velocity of 13 cm/s . The distal segment measures 37.5 cm/s peak systolic with an end diastolic velocity of 18.3 cm/s . The velocities of the right common carotid artery are 38.8 cm/s peak systolic and 10.6 cm/s end-diastolic and 39.5 cm/s peak systolic and 13.3 cm/s end diastolic distally. The peak systolic velocity ratio of the internal to the common carotid artery is 0.95 . The external carotid artery measures 50.7 cm/s peak systolic. The right vertebral artery is patent at 20.3 cm/s peak systolic with antegrade flow. The proximal left internal carotid artery shows a highest peak systolic velocity of 50.9 cm/s with an end-diastolic velocity of 19.4 cm/s . The mid internal carotid artery measures 64.6 cm/s peak systolic with an end diastolic velocity of 28.2 cm/s . The distal segment measures 71.3 cm/s peak systolic with an end diastolic velocity of 31.4 cm/s . The velocities of the left common carotid artery are 65.2 cm/s peak systolic and 23.8 cm/s end-diastolic and 54.6 cm/s peak systolic and 20.7 cm/s end diastolic distally. The peak systolic velocity ratio of the internal to the common carotid artery is 1.31 . The external carotid artery measures 103 cm/s peak systolic. The left vertebral artery is patent at 22.8 cm/s peak systolic with antegrade flow. US/US carotid doppler BI IMPRESSION: MILD PLAQUE FORMATION IS NOTED BILATERALLY, WITH LESS THAN 50% STENOSIS OF BOTH EXTRACRANIAL INTERNAL CAROTID ARTERY. BOTH VERTEBRAL ARTERIES ARE PATENT WITH ANTEGRADE FLOW. Impression dictated by: Keny Ayala M.D.12/12/2022 1:25 PM Dictation Location: [place] [address] Tech: Mindy Baughjesus Transcribed By: NAINA 12/12/22 1325 Dictated By: Keny Ayala MD 12/12/22 1324 Signed By: 12/12/22 1325 [facility] Tobacco Screening.on 022 Adult depression screening assessment No -[facility] Heart-Sandu laury 250 DO Work Phone: Fall risk assessment b) One or more fall s in the last year [facility] [employer] DO Work Phone: Tobacco use status CPHS b) No [facility] [employer] laury Joelle DO Work Phone: XR SHOULDER LT 2V or >on XR SHOULDER LT 2V or > 4-VIEWS left shoulder, 02/04/2022 5:51 PM EDT: COMPARISON: Left shoulder, 08/23/2019. CLINICAL HISTORY: Pain of left shoulder joint acute left shoulder pain after fall. Patient fell 9 feet. FINDINGS: No acute fracture, subluxation, or dislocation identified. If there is persistent concern for a subtle or nondisplaced fracture, repeat views could be obtained in 7 to 10 days. Moderate osteoarthritic changes of the glenohumeral joint with some spurring along the inferior aspect of the joint. Mild osteoarthritic changes of the acromioclavicular joint. Bones are slightly demineralized. IMPRESSION: 1. No acute osseous abnormality identified as described above. 2. 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 3. The bones are slightly demineralized. Electronically authenticated by: Luz MOLINA Date: 2022-02-04 19:02 Normal [facility] CBC AUTO DIFFon 09-13-2021 BASO # 0.1 103/ul Normal 0.0-0.1 [facility] Comment on above: Performed By: #### C BC #### [facility] [address] [place] [address] Dr. Kentrell Clement Basophils/100 WBC (Bld) 0.9 % Normal 0.2-2.0 [facility] Comment on above: Performed By: #### C BC #### [facility] [address] [place] [address] Dr. Kentrell Clement EO # 0.5 103/ul Normal 0.0-0.7 [facility] Comment on above: Performed By: #### C BC #### [facility] [address] [place] [address] Dr. Kentrell Clement Eosinophils/100 WBC (Bld) 6.5 % Normal 0.9-7.0 [facility] Comment on above: Performed By: #### C BC #### [facility] [address] [place] [address] Dr. Kentrell Clement Erythrocyte distribution width (RBC) [Ratio] 12.8 % Normal 11.0-15.0 [facility] Comment on above: Performed By: #### C BC #### [facility] [address] [place] [address] Dr. Kentrell Clement Hematocrit (Bld) [Volume fraction] 48.9 % Normal 42.0-54.0 [facility] Comment on above: Performed By: #### C BC #### [facility] [address] [place] [address] Dr. Kentrell Clement Hemoglobin (Bld) [Mass/Vol] 15.7 g/dL Normal 14.0-18.0 [facility] Comment on above: Performed By: #### C BC #### [facility] [address] [place] [address] Dr. Kentrell Clement IG # 0.03 10e3/ul Normal 0.00-0.03 [facility] Comment on above: Performed By: #### C BC #### [facility] [address] [place] [address] Dr. Kentrell Clement IG % 0.4 % Normal 0.0-0.5 [facility] Comment on above: Performed By: #### C BC #### [facility] [address] [place] [address] Dr. Kentrell Clement LYMPH # 1.4 103/ul Normal 1.2-3.8 [facility] Comment on above: Performed By: #### C BC #### [facility] [address] [place] [address] Dr. Kentrell Clement Lymphocytes/100 WBC (Bld) 18.2 % Critically low 20.5-60.0 [facility] Comment on above: Performed By: #### C BC #### [facility] [address] [place] [address] Dr. Kentrell Clement MANUAL DIFF REQ NO Normal [facility] Comment on above: Performed By: #### C BC #### [facility] [address] [place] [address] Dr. Kentrell Clement MCH (RBC) [Entitic mass] 27.8 pg Normal 25.9-34.0 [facility] Comment on above: Performed By: #### C BC #### [facility] [address] [place] [address] Dr. Kentrell Clement MCHC (RBC) [Mass/Vol] 32.1 g/dL Normal 29.9-35.2 [facility] Comment on above: Performed By: #### C BC #### [facility] [address] [place] [address] Dr. Kentrell Clement MCV (RBC) [Entitic vol] 86.5 fL Normal 80.0-94.0 [facility] Comment on above: Performed By: #### C BC #### [facility] [address] [place] [address] Dr. Kenrtell Clement MONO # 0.6 103/ul Normal 0.3-0.8 [facility] Comment on above: Performed By: #### C BC #### [facility] [address] [place] [address] Dr. Kentrell Clement Monocytes/100 WBC (Bld) 7.9 % Normal 1.7-12.0 [facility] Comment on above: Performed By: #### C BC #### [facility] [address] [place] [address] Dr. Kentrell Clement NEUT # 5.2 103/ul Normal 1.4-6.5 [facility] Comment on above: Performed By: #### C BC #### [facility] [address] [place] [address] Dr. Kentrell Clement Neutrophils/100 WBC (Bld) 66.1 % Normal 43.0-75.0 [facility] Comment on above: Performed By: #### C BC #### [facility] [address] [place] [address] Dr. Kentrell Clement Platelet mean volume (Bld) [Entitic vol] 9.9 fL Normal 9.5-13.5 [facility] Comment on above: Performed By: #### C BC #### [facility] [address] [place] [address] Dr. Kentrell Clement PLT 249 103/ul Normal 150-450 [facility] Comment on above: Performed By: #### C BC #### [facility] [address] [place] [address] Dr. Kentrell Clement RBC 5.65 106/ul Normal 4.70-6.10 [facility] Comment on above: Performed By: #### C BC #### [facility] [address] [place] [address] Dr. Kentrell Clement WBC 7.8 103/ul Normal 4.0-11.0 [facility] Comment on above: Performed By: #### C BC #### [facility] [address] [place] [address] Dr. Kentrell Clement LIPASEon 09-13-2021 Lipase [Catalytic activity/Vol] 168.0 U/L Normal 23.0-300.0 [facility] Comment on above: Performed By: #### H STROPN, LIPA, CMP #### [facility] [address] [place] [address] Dr. Kentrell Clement PROF 14(COMP METB)on 022 Albumin [Mass/Vol] 4.3 g/dL Normal 3.5-5.0 [facility] Comment on above: Performed By: #### H STROPN, LIPA, CMP #### [facility] [address] [place] [address] Dr. Kentrell Clement Albumin/Globulin [Mass ratio] 1.0 {ratio} Normal [facility] Comment on above: Performed By: #### H STROPN, LIPA, CMP #### [facility] [address] [place] [address] Dr. Kentrell Clement ALP [Catalytic activity/Vol] 52 U/L Normal 38-126 [facility] Comment on above: Performed By: #### H STROPN, LIPA, CMP #### [facility] [address] [place] [address] Dr. Kentrell Clement ALT [Catalytic activity/Vol] 27 U/L Normal 21-72 [facility] Comment on above: Performed By: #### H STROPN, LIPA, CMP #### [facility] [address] [place] [address] [address] Kentrell Clement Anion gap [Moles/Vol] 9.7 mmol/L Normal [facility] Comment on above: Performed By: #### H STROPN, LIPA, CMP #### [facility] [address] [place] [address] Dr. Kentrell Clement AST [Catalytic activity/Vol] 17 U/L Normal 17-59 [facility] Comment on above: Performed By: #### H STROPN, LIPA, CMP #### [facility] [address] [place] [address] Dr. Kentrell Clement Bilirubin [Mass/Vol] 0.6 mg/dL Normal 0.2-1.3 [facility] Comment on above: Performed By: #### H STROPN, LIPA, CMP #### [facility] [address] [place] [address] Dr. Kentrell Clement Calcium [Mass/Vol] 9.6 mg/dL Normal 8.4-10.2 [facility] Comment on above: Performed By: #### H STROPN, LIPA, CMP #### [facility] [address] [place] [address] Dr. Kentrell Clement Chloride [Moles/Vol] 102 mmol/L Normal 98-107 [facility] Comment on above: Performed By: #### H STROPN, LIPA, CMP #### [facility] [address] [place] [address] Dr. Kentrell Clement CO2 [Moles/Vol] 28.3 mmol/L Normal 22.0-30.0 [facility] Comment on above: Performed By: #### H STROPN, LIPA, CMP #### [facility] [address] [place] [address] [address] Kentrell Clement Creatinine [Mass/Vol] 1.20 mg/dL Normal 0.66-1.25 [facility] Comment on above: Performed By: #### H STROPN, LIPA, CMP #### [facility] [address] [place] [address] [address] Kentrell Clement EGFR-AF GREENLANDIC >60 Normal >=60 [facility] Comment on above: Performed By: #### H STROPN, LIPA, CMP #### [facility] [address] [place] [address] [address] Kentrell Clement EGFR-NON AF GREENLANDIC 59 mL/min/1.73m2 Critically low >=60 [facility] Comment on above: Performed By: #### H STROPN, LIPA, CMP #### [facility] [address] [place] [address] [address] Kentrell Clement Globulin (S) [Mass/Vol] 4.3 g/dL Normal [facility] Comment on above: Performed By: #### H STROPN, LIPA, CMP #### [facility] [address] [place] [address] [address] Kentrell Clement Glucose [Mass/Vol] 149 mg/dL Critically high 74-106 [facility] Comment on above: Performed By: #### H STROPN, LIPA, CMP #### [facility] [address] [place] [address] Dr. Kentrell Clement Potassium [Moles/Vol] 4.0 mmol/L Normal 3.4-5.0 [facility] Comment on above: Performed By: #### H STROPN, LIPA, CMP #### [facility] [address] [place] [address] [address] Kentrell Clement Protein [Mass/Vol] 8.6 g/dL Critically high 6.1-8.2 [facility] Comment on above: Performed By: #### H STROPN, LIPA, CMP #### [facility] [address] [place] [address] Dr. Kentrell Clement Sodium [Moles/Vol] 136 mmol/L Critically low 137-145 [facility] Comment on above: Performed By: #### H STROPN, LIPA, CMP #### [facility] [address] [place] [address] Dr. Kentrell Clement Urea nitrogen [Mass/Vol] 21.0 mg/dL Critically high 9.0-20.0 [facility] Comment on above: Performed By: #### H GOLDEN PETERSON, CMP #### [facility] [address] [place] [address] [address] Kentrell Clement Urea nitrogen/Creatinine [Mass ratio] 17.5 mg/mg Normal [facility] Comment on above: Performed By: #### H GOLDEN PETERSON, CMP #### [facility] [address] [place] [address] [address] Kentrell Clement TROPONIN, HIGH SENSITIVITYon 09-13-2021 HSTROP 12.6 pg/mL Normal 4.0-42.2 [facility] Comment on above: Result Comment: CUT- OFF POINTS HAVE BEEN ESTABLISHED BASED ON THE FOURTH UNIVERSAL DEFINITIONS OF MYOCARDIAL INFARCTION. THE UPPER REFERENCE LIMIT (URL) OF TROPONIN, DEFINED THE 99TH PERCENTILE OF cTnI DISTRIBUTION IN A REFERENCE POPULATION, HAS BEEN CONFIRMED THE DECISION THRESHOLD FOR PA DIAGNOSIS. Performed By: #### H NICHOLAS #### [facility] [address] [place] [address] [address] Kentrell Clement HSTROP 12.4 pg/mL Normal 4.0-42.2 [facility] Comment on above: Result Comment: CUT- OFF POINTS HAVE BEEN ESTABLISHED BASED ON THE FOURTH UNIVERSAL DEFINITIONS OF MYOCARDIAL INFARCTION. THE UPPER REFERENCE LIMIT (URL) OF TROPONIN, DEFINED THE 99TH PERCENTILE OF cTnI DISTRIBUTION IN A REFERENCE POPULATION, HAS BEEN CONFIRMED THE DECISION THRESHOLD FOR PA DIAGNOSIS. Performed By: #### H GOLDEN PETERSON, CMP #### [facility] [address] [place] [address] [address] Kentrell Clement XR CHEST 2 Von 09-13-2021 XR CHEST 2 V EXAMINATION: XR CHES T 2 V HISTORY: SHORTNESS OF BREATH COMPARISON: No relevant comparison available. TECHNIQUE: PA and lateral FINDINGS: LUNGS: No significant pulmonary parenchymal abnormalities. VASCULATURE: No increased pulmonary vasculature. PLEURA: No pneumothorax, effusion, or pleural thickening. CARDIAC: No cardiomegaly or cardiac silhouette abnormality. MEDIASTINUM: No visible mass or adenopathy. BONES: Mild degenerative disc disease and spondylosis without visible acute abnormalities. OTHER: Negative. IMPRESSION: No acute disease. Electronically authenticated by: SHERIF TREADWELL Date: 2021-09-13 09:51 Normal [facility] CARDIAC STRESS/REST INJE CTIONon 05-17-2021 [facility] CARDIAC STRESS/REST INJECTION Patient Name: JANICE SHULTZ STUDY: MYOCARDIAL PERFUSION STRESS TEST WITH EXERCISE CONVERTED TO LEXISCAN Performing facility: [facility], [address] [place] [address], [address], [address] Provider: Devika Evangelista DO, FACC PCP: Dr. Reyna Paredes Supervising provider: Devkia Evangelista DO, FACC INDICATION: CAD with angina Fatigue HISTORY: Gender: M; Age: 76 y/o ; Height: 180.34 cm; Weight: 85.4412378 kg. High Cholesterol; Previous PA; HTN; Fatigue; Denies smoking. Cardiac catheterization on 2014. PTCA on 2014. COMPARISON: No comparison. ACCESSION NUMBER(S): [id number]; [id number]; [id number] ORDERING CLINICIAN: [place] EVANG[place] TECHNIQUE: ONE DAY protocol. Stress injection: Date: 05-17-21, 34.2 mCi of Myoview IV at 20 seconds after rapid injection of Lexiscan. Rest injection: Date: 05-17-21, 10.0 mCi of Myoview IV at rest. The patient had a rapid injection of 0.4mg of Lexiscan IV over 10 seconds. Imaging was performed by gated tomographic technique. STRESS TEST DATA: Resting heart rate was 73 BPM. Resting blood pressure was 150/100 mmHg. The patient exercised using a Franky exercise protocol. 3:00 minutes exercised. 75% of MPHR achieved for age. 4.6 METS achieved. Maximum heart rate was 110 BPM. Maximum blood pressure was 164/100 mmHg. DTS 3. TREADMILL TEST TERMINATED DUE TO: Hx CVA, unsteady gait. Test converted to Lexiscan. TEST TERMINATED DUE TO: Protocol completed. FINDINGS: STRESS TEST RESULTS: Resting electrocardiogram revealed normal sinus. The patient had no significant ECG changes with maximal stress. The patient did not have chest pains/symptoms during the procedure. There was a normal recovery phase. There were no significant dysrhythmias. Patient did not achieve 85% MPHR so test was immediately converted to Lexiscan. LEXISCAN INFUSION: The patient had a rapid injection of 0.4 mg of Lexiscan IV over 10 seconds. Resting electrocardiogram revealed normal sinus. The patient had no significant ECG changes with maximal stress. The patient did not have chest pains/symptoms during the procedure. There was a normal recovery phase. There were no significant dysrhythmias. IMAGING RESULTS: Image quality was good. Rest and stress tomographic images were reviewed and revealed normal perfusion without evidence of ischemia, myocardial infarction, or left ventricular dilatation with stress. Overall left ventricular systolic function appeared to be normal without regional wall motion abnormalities. LV ejection fraction was 2 %. TID is 1.0 cm and is normal. There were evidence of attenuation artifact. IMPRESSION: Normal Lexiscan Myoview cardiac perfusion imaging stress test. No evidence of ischemia or myocardial infarction by perfusion imaging. Normal left ventricular systolic function, ejection fraction 52 %. No exercise provoked significant ischemic ECG changes or chest pain symptoms. Patient was not able to perform adequate graded exercise stress test. He was able exercise for only 3 minute achieving 75% maximum predicted heart rate and because of this test was switched to Lexiscan to the. Electronically signed by: JAYLEN FERRARI MD Normal [facility] No Panel Informationon 05-17 Normal -[facility] Heart-Sandu laury 250 DO Work Phone: BASIC METABOLIC PANELon 01-11 Anion gap 8 mmol/L Normal - [facility] Comment on above: Performed By: #### L AB15 ####[facility] [id number] [place] [id number] [facility]#### [id number] ####[facility] [id number] [place] [address] [facility] [place], [place] [phone] BASIC METABOLIC PANEL Normal [facility] Comment on above: Result Comment: Slig htly hemolyzed. Hemolysis may affect this result. Specimen may be redrawn at the discretion of ordering physician. Performed By: #### L AB15 ####[facility] [id number] [place] [address] [place]#### [id number] ####[facility] [id number] [place] [address] [facility], [place] [phone] BUN (urea nitrogen) 14 mg/dL Normal 7-18 [facility] Comment on above: Performed By: #### L AB15 ####[facility] [id number] [place] [address] [place]#### [id number] ####[facility] [id number] [place] [address] [facility] [place] [id number], [place] [phone] Calcium 8.0 mg/dL Abnormal 8.5-10.1 [facility] Comment on above: Performed By: #### L AB15 ####[facility] [id number] [place] [address] [place]#### [id number] ####[facility] [id number] [place] [address] [facility] [place] [id number], [place] [phone] Chloride 109 mmol/L Abnormal 98-107 [facility] Comment on above: Performed By: #### L AB15 ####[facility] [id number] [place] [address] [place]#### [id number] ####[facility] [id number] [place] [address] [facility] [place] [id number], [place] [phone] CO2 28 mmol/L Normal 21-32 [facility] Comment on above: Performed By: #### L AB15 ####[facility] CLIA [id number] [place] [address] [place]#### [id number] ####[facility] CLIA [id number] [place] [address] [facility], [place] [address] Creatinine 0.9 mg/dL Normal 0.60-1.3 [facility] Comment on above: Performed By: #### L AB15 ####[facility] CLIA [id number] [place] [address] [place]#### [id number] ####[facility] [id number] [place] [address] [facility], [place] [address] eGFR (black) mL/min/{1.73_m2} Normal >60 [facility] Comment on above: Result Comment: GFR is estimated using creatinine, age, gender, and race. Patient's values should be interpreted as a trend. For additional information: [email or web address] Performed By: #### L AB15 ####[facility] CLIA [id number] [place] [address] [place]#### [id number] ####[facility] CLIA [id number] [place] [address] [facility], [place] [address] eGFR (non-black) mL/min/{1.73_m2} Normal >60 [facility] Comment on above: Result Comment: GFR is estimated using creatinine, age, gender, and race. Patient's values should be interpreted as a trend. For additional information: [email or web address] Performed By: #### L AB15 ####[facility] [id number] [place] [address] [place]#### [id number] ####[facility] [id number] [place] [address] [facility] [place] [id number], [phone] Glucose mass conc 114 mg/dL Abnormal 74-106 [facility] Comment on above: Performed By: #### L AB15 ####[facility] [id number] [place] [address] [place]#### [id number] ####[facility] [place] [id number] [place] [address] [facility] [place] [id number], [phone] Potassium molar conc 4.1 mmol/L Normal 3.5-5.1 [facility] Comment on above: Performed By: #### L AB15 ####[facility] [id number] [place] [address] [place]#### [id number] ####[facility] [id number] [place] [address] [place] [facility] [place] [id number], [phone] Sodium 145 mmol/L Normal 136-145 [facility] Comment on above: Performed By: #### L AB15 ####[facility] [id number] [place] [address] [place]#### [id number] ####[facility] [id number] [place] [address] [facility] [facility], [phone] CBC W/DIFFon 01-23-2018 Basophils/100 WBC Auto (Bld) 1.1 % Normal [facility] Comment on above: Performed By: #### L AB15 ####[facility] [id number] [place], [facility]31 [place]#### [id number] ####[facility] [id number] [place], [address] AND [place] [id number], [phone] BSA (Body Surface Area) 0.1 K/uL Normal 0.0-0.1 [facility] Comment on above: Performed By: #### L AB15 ####[facility] [id number] [place], [facility]31 [place]#### [id number] ####[facility] [id number] [place], [address] [place] [id number], [place] [phone] Eosinophils 0.4 10*3/uL Normal 0.0-0.4 [facility] Comment on above: Performed By: #### L AB15 ####[facility] [id number] [address] [address], [place] [address] [place]#### [id number] ####[facility] [id number] [place], [address] [place] [id number], [phone] Eosinophils 8.2 10*3/uL Normal [facility] Comment on above: Performed By: #### L AB15 ####[facility] [id number] [place] [address] [place]#### [id number] ####[facility] [id number] [place] [address] [facility] [facility], [place] [phone] Erythrocyte distribution width Auto Ratio (RBC) 13.2 % Normal 11.7-15.2 [facility] Comment on above: Performed By: #### L AB15 ####[facility] [id number] [place] [address] [place]#### [id number] ####[facility] [id number] [place] [address] [facility], [place] [address] Erythrocytes (RBC) 5.32 10*6/uL Normal 4.30-5.86 [facility] Comment on above: Performed By: #### L AB15 ####[facility] [id number] [place] [address] [place]#### [id number] ####[facility] [id number] [place] [address] [facility] [facility], [place] [address] Hematocrit (HCT) 45.5 % Normal 39.0-51.5 [facility] Comment on above: Performed By: #### L AB15 ####[facility] [id number] [place] [address] [place]#### [id number] ####[facility] [id number] [place] [address] [facility] [facility], [place] [phone] Hemoglobin mass conc (Bld) 15.3 g/dL Normal 13.1-17.6 [facility] Comment on above: Performed By: #### L AB15 ####[facility] [place] [id number] [place] [address] [place]#### [id number] ####[facility] [place] [id number] [place] [address] [facility] [place] [id number], [phone] Lymphocytes 22.0 10*3/uL Normal [facility] Comment on above: Performed By: #### L AB15 ####[facility] [id number] [place] [address] [place]#### [id number] ####[facility] [place] [id number] [place] [address] [facility] [place] [id number], [phone] Lymphocytes 1.1 10*3/uL Normal 0.8-3.6 [facility] Comment on above: Performed By: #### L AB15 ####[facility] [id number] [place] [address] [place]#### [id number] ####[facility] [id number] [place] [address] [facility] [place] [id number], [phone] MCH 28.7 pg Normal 28.4-33.4 [facility] Comment on above: Performed By: #### L AB15 ####[facility] [id number] [place] [address] [place]#### [id number] ####[facility] [id number] [place] [address] [facility], [phone] MCHC mass conc (RBC) 33.5 g/dL Normal 31.1-37.0 [facility] Comment on above: Performed By: #### L AB15 ####[facility] [id number] [place] [address] [place]#### [id number] ####[facility] [id number] [place] [address] [facility], [phone] MCV 85.6 fL Normal 85.0-99.0 [facility] Comment on above: Performed By: #### L AB15 ####[facility] [id number] [place] [address] [place]#### [id number] ####[facility] [id number] [place] [address] [facility] [place] [id number], [place] [phone] Monocytes 7.3 10*3/uL Normal [facility] Comment on above: Performed By: #### L AB15 ####[facility] [id number] [place] [address] [place]#### [id number] ####[facility] [id number] [place] [address] [facility], [place] [phone] Monocytes 0.4 10*3/uL Normal 0.3-0.9 [facility] Comment on above: Performed By: #### L AB15 ####[facility] [id number] [place] [address] [place]#### [id number] ####[facility] [place] [id number] [place] [address] [facility], [phone] Neutrophils 3.1 10*3/uL Normal 2.0-7.3 [facility] Comment on above: Performed By: #### L AB15 ####[facility] [id number] [place] [address] [place]#### [id number] ####[facility] [place] [id number] [place] [address] [facility], [phone] Neutrophils 61.4 10*3/uL Normal [facility] Comment on above: Performed By: #### L AB15 ####[facility] [id number] [place] [address] [place]#### [id number] ####[facility] [place] [id number] [place] [address] [facility], [phone] Platelets 187 10*3/uL Normal 154-393 [facility] Comment on above: Performed By: #### L AB15 ####[facility] [id number] [place] [address] [place]#### [id number] ####[facility] [place] [id number] [place] [address] [facility]35[address] [place], [place] [phone] WBC (Leukocytes) 5.0 10*3/uL Normal 4.0-10.5 [facility] Comment on above: Performed By: #### L AB15 ####[facility] [id number] [place] 3201831 [facility]#### [id number] ####[facility] [id number] [address] AND [facility]3535 [place], [place] [phone] CT-HEAD W/O CONTRASTon 01-23 CT-HEAD W/O CONTRAST Date of Service: 11:31 AMReason for exam: History: dizziness that started this AM and worsens with movement. Number of Series/Images: 3. Demographics: 72 years old MaleComparison: 09/07/2016Technique: Axial images were obtained of the brain without the administration of intravenous contrast. Brain and bone algorithms were evaluated.CT radiation dose optimization techniques (automated exposure control, and use of iterative reconstruction techniques, or adjustment of the mA and/or kV according to patient size) were used to limit patient radiation dose.FINDINGS: Non-contrasted imaging of the brain shows no mass or mass effect. No hemorrhage or hydrocephalus. Stable findings of cerebral atrophy and right parieto-occipital encephalomalacia.IMPRESSION: IMPRESSION:Stable CT scan of the head. Electronically Signed by: Finn Gentile MD, 01/23/2018 11:43 AM Normal [facility] EKG STANDARD 12 LEADon 01-23 Pulse (Heart Rate) RR Interval= 822 msP R Interval= 180 msQRSD Interval= 115 msQT Interval= 385 msQTc Interval= 425 msHeart Rate= 73 msP Diana= 60 degQRS Diana= -26 degT Wave Diana= 5 degI: 40 Diana= -12 degT: 40 Diana= -39 degST Diana= -61 degSinus rhythm Nonspecific intraventricular conduction delay Inferior infarct, old Electronically Signed by: Sherif Nam) 23-Jan-2018 10:43:27 Date and Time of Study: 2018-01-23 10:11:14 Normal [facility] TROPONIN Ion 01-23-2018 Troponin I.cardiac mass conc ng/mL Normal 0.000-0.04 5 [facility] Comment on above: Performed By: #### L AB15 ####[facility] [id number] [address]#### [id number] ####[facility] [id number] [address] AND [phone] Troponin I.cardiac mass conc Normal [facility] Comment on above: Result Comment: Trop onin I 0.045-0.600 is abnormal but not clinically relevant. Please correlate with other clinical findings. Troponin I >0.600 is clinically relevant in accordance with WHO criteria. Performed By: #### L AB15 ####[facility] [id number] [address]#### [id number] ####[facility] [id number] [address] Consultson 09-08-2016 Consults Encounter Department : [facility] WE[facility]Consults by Paris An RD at 09/08/2016 10:08 AMAuthor: ADDY Chauervice: NutritionAuthor Type: Registered DietitianFiled: 09/08/2016 10:09 AMNote Time: 09/08/2016 10:08 AMNote Type: ConsultsStatus: SignedEditor: Paris An RD (Registered Dietitian) Consult Orders: 1. IP Consult To Nutrition Care [[id number]] ordered by Jailene Flores MD at 09/07/16 0929Patient was ordered a stroke carepath, so patient was given a Heart Healthy diet instruction andprovided handout Heart Healthy Eating Nutrition Therapy from the Academy of Nutrition andDietetics' Nutrition Care Manual.The Patient received the following information:Tips to control blood pressureTips to control blood cholesterol levelsFoods recommendedFoods not recommendedHeart Healthy sample 1-day menu planPatient had good understanding of handout. Will be available as needed for any questions. [facility] Procedureson 09-08-2016 Procedures Encounter Department : [facility] SURG WESTProcedures by Asmita De at 09/08/2016 2:27 PMAuthor: Asmita Dawkinservice: CardiologyAuthor Type: TechnologistFiled: 09/08/2016 2:46 PMNote Time: 09/08/2016 2:27 PMNote Type: ProceduresStatus: SignedEditor: Asmita De (Technologist)Cosigner: Walt Mckeon MD at 09/08/2016 2:49 PMPatient InformationPatient NameSexDOOamr White1945 [id number] Progress Notes by Walt Mckeon MD at 09/08/2016 2:23 PMAuthor: ANDRESSA Huangervice: CardiologyAuthor Type: PhysicianFiled: 09/08/2016 2:27 PMNote Time: 09/08/2016 2:23 PMStatus: AddendumEditor: Walt Mckeon MD (Physician)Related Notes:Original Note by Walt Mckeon MD (Physician) filed at 09/08/2016 2:27 PMExpand All <#> Collapse All <#>BRENDAN ReportName: Janice Shultz Date/Time of Admission: 09/07/2016 7:48 AMCSN: [id number] Attending Provider: Dwight Jackson MD Room/Bed: R3306/N4280TITH: 1945 71 y.o.DATE OF PROCEDURE: 09/08/2016Procedure: Transesophageal EchocardiogramSurgeon: Walt MckeonAssist: NoneDx/Indication: Rule out cardioembolic strokeComplications: NoneThe risks and benefits of the procedure were explained in detail to the patient, and the patientwas given the opportunity to ask questions. The patient then consented to the procedure.The patient tolerated this procedure well without immediate complications. Upon the procedurescompletion, the patients condition had returned to baseline.Findings:Left atrium is mildly enlarged. Left atrial appendage is normal. No intracardiac thrombus. Nosmoke.Left ventricle appeared normal in size and function. Ejection fraction 60%.Right atrium normal in size.Right ventricle normal in size.No intracardiac shunts. Bubble study is negative.ValvesMitral valve is structurally normal. Trace mitral regurgitation.Aortic valve is trileaflet. There is moderate calcification of the right coronary cusp And Mildleft coronary cusp calcification. There is no mass or vegetations.The tricuspid and pulmonic valves were structurally normal.No pericardial effusion.No aortic atheroma.Summary:1. Normal left ventricular size and function.2. Aortic valve calcification without stenosis.3. No intracardiac masses or thrombus.4.. No intracardiac shunting.The above findings was discussed with cardiology.There was no family at bedside.Electronicallysigned by: Walt Mckeon MD 09/08/2016 [facility] Progress Noteson 09-08-2016 Progress Notes Encounter Department : [facility] SURG WESTProgress Notes by Dwight Jackson MD at 09/08/2016 10:49 AMAuthor: ANDRESSA Delunaervice: Internal MedicineAuthor Type: PhysicianFiled: 09/08/2016 4:31 PMNote Time: 09/08/2016 10:49 AMNote Type: Progress NotesStatus: AddendumEditor: Dwight Jackson MD (Physician)Related Notes:Original Note by Dwight Jackson MD (Physician) filed at 09/08/2016 3:09 PMINTERNAL MED PROGRESS NOTEASSESSMENT AND PLAN:1. Multiple right-sided infarcts: Likely secondary to cardiac arrhythmia. No arrhythmias noted onmonitor. Patient has already been on aspirin, statin, and Plavix at home.-Neurology, Dr. Ragsdale, following. Appreciate assistance.-Cardiology, Dr. Villalobos, following. Dr. Mckeon to do BRENDAN today at 2 pm; NPO-Continue current medications-PT/OT/ST2. Essential hypertension: Currently well controlled-Continue current medication-Target range for BP 150/90 or less3.CAD with history of AMI: Patient on aspirin, statin, beta-ari, Plavix-Continue current medication4. Prophylaxis: LMWH for DVT. No indication for GI prophylaxis.Pt is a full code and is in agreement with the plan as is stated above.This treatment plan has been reviewed and discussed with Dr.George Polo Jackson MD Electronicallysigned by: Verónica Holden APRN-BUNG SEWER 09/08/2016Subjective: Patient states he is doing better. He is able to move his left extremities more andhas sensation returning in his left arm.Objective:BP 137/97 mmHg Pulse 72 Temp(Src) 98 ?F (36.7 ?C) Resp 17 Ht 5' 11 (1.803 m) Wt 196 lb12.8 oz (89.268 kg) BMI 27.46 kg/m2 SpO2 96%I/O last 3 completed shifts:In: 404.2 [P.O.:240; I.V.:164.2]Out: 600 [Urine:600]Physical Exam:General: AANDO x3, in no acute distressCV: RRR, nl s1 s2 no m/r/gLungs: CTA, no w/r/rAbd: S/NT/ND, nl bs x 4 no rebound or guardingExt: 2+ pulses, no edema, no cyanosis or clubbingNeuro: Left sided weakness upper and lowerLabs:CBC/COAGSRecent Labs 09/07/16 0816 09/07/16 1054WBC 8.8 --HEMOGLOBIN 15.3 --PLT 197 --INR 1.0 1.1BMPRecent Labs 09/07/16 0816NA 139K 4.8CL 101CO2 27BUN 14CREATININE 1.03Cardiac EnzymesRecent Labs 09/07/16 0816TROPONINI <0.015I have reviewed all the above laboratory findingsJUAN Smith09/08/2016Attending addendumPt seen with the midlevel providerHistory/exam/labs/pl an of care reviewedAdm for a stroke with mutliple infarcts in R hemisphereHad a BRENDAN that was negativeHemodynamically stableFU with cardiology for a Loop recorder to r/o PAFContinue current meds.No DC summary <48hrs in KMCTime spent on DC process 35 minutes [facility] Progress Notes Encounter Department : [facility] MED SURG WESTProgress Notes by Alberto Newman MD at 09/08/2016 2:58 PMAuthor: ANDRESSA Willervice: CardiologyAuthor Type: PhysicianFiled: 09/08/2016 2:59 PMNote Time: 09/08/2016 2:58 PMNote Type: Progress NotesStatus: SignedEditor: Alberto Newman MD (Physician)See BRENDAN note.Patient not noted to have any obvious embolic source. Can DC w pt having 2-3 week OP telm to exclude PAF as a possible mechanism for the events.This can be arranged by his local physicians in [facility] Progress Notes Encounter Department : [facility] MED SURG WESTProgress Notes by Walt Mckeon MD at 09/08/2016 2:23 PMAuthor: ANDRESSA Huangervice: CardiologyAuthor Type: PhysicianFiled: 09/08/2016 2:27 PMNote Time: 09/08/2016 2:23 PMNote Type: Progress NotesStatus: AddendumEditor: Walt Mckeon MD (Physician)Related Notes:Original Note by Walt Mckeon MD (Physician) filed at 09/08/2016 2:27 PMTEE ReportName: Janice Shultz Date/Time of Admission: 09/07/2016 7:48 [facility] [id number] Attending Provider: Ivan Deluna/Bed: R3306/G2748V : 1945 71 y.o.DATE OF PROCEDURE: 09/08/2016Procedure: Transesophageal EchocardiogramSurgeon: Walt MckeonAssist: NoneDx/Indication: Rule out cardioembolic strokeComplications: NoneThe risks and benefits of the procedure were explained in detail to the patient, and the patientwas given the opportunity to ask questions. The patient then consented to the procedure.The patient tolerated this procedure well without immediate complications. Upon the procedurescompletion, the patients condition had returned to baseline.Findings:Left atrium is mildly enlarged. Left atrial appendage is normal. No intracardiac thrombus. Nosmoke.Left ventricle appeared normal in size and function. Ejection fraction 60%.Right atrium normal in size.Right ventricle normal in size.No intracardiac shunts. Bubble study is negative.ValvesMitral valve is structurally normal. Trace mitral regurgitation.Aortic valve is trileaflet. There is moderate calcification of the right coronary cusp And Mildleft coronary cusp calcification. There is no mass or vegetations.The tricuspid and pulmonic valves were structurally normal.No pericardial effusion.No aortic atheroma.Summary:1. Normal left ventricular size and function.2. Aortic valve calcification without stenosis.3. No intracardiac masses or thrombus.4.. No intracardiac shunting.The above findings was discussed with cardiology.There was no family at bedside.Electronicallysigned by: Walt Mckeon MD 09/08/2016 Normal [facility] Progress Notes Encounter Department : [facility] MED SURG WESTProgress Notes by Kamla Ramos RN at 09/08/2016 2:24 PMAuthor: Kamla Ramos, RNService: (none)Author Type: Registered NurseFiled: 09/08/2016 2:25 PMNote Time: 09/08/2016 2:24 PMNote Type: Progress NotesStatus: SignedEditor: Kamla Ramos RN (Registered Nurse)Patient arrived to U from CathLab in stable condition. Patient awake, resting in bed, VSS, willcontinue to monitor Normal [facility] Progress Notes Encounter Department : [facility] MED SURG WESTProgress Notes by Alberto Newman MD at 09/08/2016 12:12 PMAuthor: ANDRESSA Willervice: CardiologyAuthor Type: PhysicianFiled: 09/08/2016 1:45 PMNote Time: 09/08/2016 12:12 PMNote Type: Progress NotesStatus: SignedEditor: Alberto Newman MD (Physician)Related Notes:Original Note by Monet Wallace PA-C (Physician Clay Temperer) filed at 09/08/201612:15 PM Cardiology Progress NoteAssessment:Acute DQP-CBH-agikalen right side acute strokesA. Hx of CVA right parieto-occipital lobe 11/26 has been on Plavix, ASACarotid stenosis bilateral ICA 1-49% stenosis CAD s/p PA 2014 with stent [id number]-MztmzmmeDAPLZW-qu simvastatinHypertriglyceride [facility] Lifter: Barbara Gupta:HR and BP stable. Have not seen arrhythmia on monitor.Will monitor for atrial fibrillation while admitted, check Mg.Continue ASA, Plavix, metoprolol 25mg BID, ZocorTEE recommended by Neuro. Scheduled for this afternoon at [address] Mckeon.Currently CV stable.The patient was seen, examined, records reviewed and discussed with Dr. Newman.Thank-you for this consultation.Monet Wallace PA-C [facility] 09/08/16TTENDING:PATIENT FEELS FINE. NO CV ISSUES. SL ANXIOUS RE BRENDAN TODAY. I REVIEWED W PT AND FAMILY WHO WERE INTHE ROOM.Monet Wallace PA-C 09/08/2016 12:04 PMSUBJECTIVE Patient seen and examined. Ambulating with PT. No CP, SOB, lightheadedness.OBJECTIVE:Vi jelena Signs:BP: 137/97 mmHg (09/08 809)Temp: 98 ?F (36.7 ?C) (09/08 809)Heart Rate: 72 (09/08 809)Resp: 17 (09/08 809)SpO2: 96 % (09/08 944)FiO2 (%): 21 % (09/08 944)O2 Flow Rate (L/min): 0 L/min (09/08 944)Cardiac (WDL): --Cardiac Rhythm: Normal sinus rhythm (09/08 746) Temp (48hrs), Av.1 ?F (36.7 ?C), Min:97.8 ?F(36.6 ?C), Max:98.4 ?F (36.9 ?C)I/O:Intake/Output Summary (Last 24 hours) at 09/08/16 1345Last data filed at 09/08/16 1100Gross per 24 udkzItgzqt894.17 mlOutput 200 tpDfy027.17 mlPhysical Exam:General AppearanceStanding, ambulating, NADHEENTNC/ATChestClearCardi ovascularRRR no MGRExtremitiesNo edemaSkinWarm and dryNeurologicalGrossly non-focalLABS:Recent Labs 09/07/16 0816 09/07/16 1054NA 139 --K 4.8 --BUN 14 --CREATININE 1.03 --HEMOGLOBIN 15.3 --MG -- 1.7TROPONINI <0.015 --TELE: Sinus, sinus tachyMEDS: -saline flush 3 mLIntravenous3 times per day -aspirin 325 mgOralDAILYOr -aspirin 300 mgRectalDAILY -clopidogrel 75 mgOralDAILY -enoxaparin (LOVENOX) injection (30 or 40 mg DVT Prophylaxis) 40 mgSubcutaneousDAILY AT 0800 -metoprolol tartrate 25 mgOralTWO TIMES DAILY -simvastatin 10 mgOralNIGHTLY AT BEDTIMEMEDSINFUSIONS: -0.9 % sodium fjsqkvki86 mL/hr (09/08/16 0818)Imaging Studies: Reviewed in chartElectronicallysigned by: ALBERTO NEWMAN, 09/08/2016, 1:45 PM [facility] Progress Notes Encounter Department : [facility] Notes by Lissette Valdovinos PTA at 09/08/2016 9:23 AMAuthor: Lissette Valdovinos PTAService: PT TreatmentAuthor Type: Physical Therapy AssistantFiled: 09/08/2016 12:24 PMNote Time: 09/08/2016 9:23 AMNote Type: Progress NotesStatus: SignedEditor: Lissette Valdovinos PTA (Countersinker Balance Screw Hole)Related Notes:Original Note by Lissette Valdovinos PTA (Countersinker Balance Screw Hole) filed 09/08/2016 11:57 AMCosigner: Jana Ashby, PT at 09/14/2016 12:30 PMOhiohealth [facility]ville Health CenterPhysical Therapy TreatmentAdmit date: 09/07/2016 Today's Date: 09/08/2016Patient Name/MR#: Janice Shultz [id number] Room: [facility]/[id number] Diagnosis: Left arm numbness [R20.0]TIA (transient ischemic attack) [G45.9]Admitting Provider:No admitting provider for patient encounter.Height:5' 11 (1.803 m) Weight: 196 lb 12.8 oz (89.268 kg)Recent Labs:Recent Labs 09/07/16 0816HEMOGLOBIN 15.3Current Medical Status: per chart review: 71 y.o. R - handed male presenting to [facility] with left arm numbness and tingling that he woke up with. He went to bed feeling himself at 2200. He woke up this morning with his symptoms. He had a stroke with left sided symptoms lastApril. He states that his left arm feels clumsy and that he does not have full control. No symptomsin his face or leg.Prior Level of Function, Home Environment, DME, I/ADLS: pt lives with spouse, 2 level home,bed/bath upstairs, walk in shower, s/c built in, denies gb, 2 KEYSHAWN, full flight up and downstairswith HR. 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 Spoke with RN and reports pt ok to be seenPain Assessment rating: Did not rate Pain Location: head acheTherapist Pain Intervention (if pt reports unacceptable pain level): no intervention necessary atthis timeOBJECTIVE:Mental StatusAlertDrowsyLethargicUn responsiveCooperativeUncoope rativeAppropriateInappropria teFollows CommandsNone1 Step2 StepMultiStepConsistentlyInc onsistentlyEasily DistractedSided DeficitsComments:Orientation PersonPlaceTimeEventsComment s:Barriers to Learning:NoneCognitionHearin gVisionMotivationReadinessJu dgmentInsightAwarenessEasily DistractedPre-MorbidMental StatusLanguage barrier(non-Guinean speaking)Communication BarrierPainComments:Observat ions/Vitals: pt in bed with needs within reachEnvironmental Safety:Gait belt usedMobilityIndMod-ISupSetup SBACGAMINModMaxTotalNot Addressed this sessionRollingxSupine-SitxSi t-SupinexSit to StandxBed to ChairxStairsxGait xGait/Mobility Comments: pt in bed with phone cord wrapped around L LE and IV twisted around IVpole. Assisted pt with getting untangled. Pt performed supine to sit with S. Pt performed sit tostand transfer with SBA to CGA for safety with no LOB noted. Pt ambulate x 50 feet with CGA withgood reciprocal gt pattern and no LOB noted.pt able to perform SLR x 10 sec with CGA for safety onL and R LE with no LOB noted. Pt performed transfer back to EOB with SBA. Sit to supine with S andRolling L and R with S. Pt able to pick object off of floor with CGA for safety with no LOB ordizziness noted. Pt back in bed with needs within reach. Pt scored 36/36 on PASS test.Tinetti Balance Assessment ToolBALANCE SECTIONPatient is seated in hard, armless chair -Sitting Balance = 1 -0-leans/slide -1- steady/safe -Rises from Chair = 2 -0-unable with out help -1-able with arms -2-able without arms -Attempts to Rise = 2 -0-unable without help -1-able >1 attempt -2-able 1 attempt -Immediate Standing Balance (first 5 seconds) = 2 -0-unsteady -1-steady but with AD -2-steady with out AD -Standing Balance = 2 -0-unsteady -1-steady, WBOS and AD -2-narrow stance with no AD -Nudged (3 light sternal nudges with palm) = 1 -0-begins to fall -1-staggers, catches self -2- steady -Eyes Closed = 1 -0-unsteady -1-steady -Turn 360 degrees = 1,1 -0-discontinuous steps -1-continuous steps -0-unsteady -1-steady -Sitting Down = 2 -0-unsafe (falls into chair) -1- uses arms or not smooth -2-safe, smooth motionBalance Score: 15 / 16GAIT SECTIONPatient stands with therapist, walks across room (+/- aids), first at usual pace, the at rapidpace. Use the lowest score. -Indication of Gait (immediately after told to go ) = 1 -0-any hesitancy -1- no hesitancy -Step Length and Height = 1,1,1,1 -0-Right swing foot does not pass left stance foot with step -1- Right foot passes left stance foot -0- Right foot does not clear floor completely with step -1- Right foot completely clears floor -0- Left swing foot does not pass right stance foot with step -1- Left foot passes right stance foot -0- Left foot does not clear floor completely with step -1- Left foot completely clears floor -Step Symmetry = 1 -0-Right and left step length not equal (estimate) -1-Right and left step appear equal -Step Continuity = 1 -0-Stopping or discontinuity between steps -1-Steps appear continuous -Path = 2 -0-Marked deviation -1-Mild/moderate deviation or uses walking aid -2-Straight without walking aid -Trunk = 2 -0-Marked sway or uses walking aid -1-No sway but flexion of knees or back, or spreads -arms out while walking -2-No sway, no flexion, no use of arms, and no use -of walking aid -Walking Time = 1 -0-Heels apart -1-Heels almost touching while walkingGait Score: Total Score (Balance + Gait) = 27 / 28 < 18 = High Risk of [place]15-86 = Moderate Risk > 24 = Low RiskBalance:SittingStatic-GD ynamic-GStandingStatic- FDynamic-FExercises this session: seated AROM x 10 with hip Flexon, ab/add, ap and LAQPatient/Family Education:Role of PTTx plan reviewedFamily PresentNo Family PresentPrecautionsHEPGait/ air trainingHome SafetyBody MechanicsTransfer TrainingCar TransferInterdisciplinary Communication:Spoke w/ RN prior to sessionSpoke w/ Social ServicesPT informed of any significant changes in patient status that may require adjustment of the POCRN notified -Co-tx with OTASSESSMENT:Patient/Family Goal:Progressed/OngoingUnabl e to stateMetNot MetPhysical Therapy Goals (all goals not documented as met are ongoing):Physical Therapy Goals:STG's (09/14/16)1. Pt will participate 75% or greater with BLE standing therapeutic exercises to facilitatestrengthening and dynamic balance.2. Pt will perform sit to stand transfers with PA.3. Pt will amb. 25 ft with SUP w/o LOB.4. Pt will participate in functional activities with tolerable pain level, 5/10 or less.5. Pt will negotiate 1 flight of stairs with HR and SBA w/o LOB.LTG's (09/21/16)1. Pt will perform bed mobility IND.2. Pt will perform sit to stand transfers IND.3. Pt will amb. 50+ ft IND w/o LOB.4. Pt will perform HEP IND.5. Pt will negotiate 1 flight of stairs with HR and PA w/o LOB.Discharge Recommendations:PT Discharge Recommendations: Home with Assist, Outpatient PTPT Discharge Equipment Needs: None*Patient equipment needs may change pending patient?s progress and discharge disposition duringacute hospitalization.PLAN: (as discussed with patient/family and agreed upon) Continue POC developed after evaluation PT reassess required due to: Discharge from PT services due to:The patient will be seen by Physical Therapy Services and progressed as tolerated.Plan to Include: Gait, Functional Transfers, Balance, Therapeutic Exercise, Therapeutic Activities,Stair training, Neuromuscular Re-education (nerve intact), Pt/Family Education/Training, SafetyTraining, HEPTherapy Frequency: BID, 7 days/wkDuration of Treatment: 2 weeksSamary jo Valdovinos PTATime In: 900 Time Out: 923Total Treatment Time: 23Timed Code Minutes (does not apply to eval only): 232nd : pt up ambulating with IV pole to go to the bathroom. Pt require SBA for safety with no LOBnoted. Pt ambulated x 300 feet x 2 with no LOB noted with SBA for safety. Pt tolerate 3 steps d/tlimited range d/t IV pole. Pt performed 3 steps with UE support with CGA with proper sequencing andtechnique. Pt ambulate back to room and S with sit to supine. Pt is suppose to have BRENDAN at 2 per ptand may be d/c'd per pt.Time in 1210Time out 1220Total tx time: 10Timed coded minutes: 10 [facility] Progress Notes Encounter Department : [facility] MED SURG WESTProess Notes by Devyn Bocanegra DO at 09/08/2016 10:33 AMAuthor: Marianne Mehtarvice: NeurologyAuthor Type: PhysicianFiled: 09/08/2016 11:48 AMNote Time: 09/08/2016 10:33 AMNote Type: Progress NotesStatus: SignedEditor: Devyn Bocanegra DO (Physician).Neurology Progress NoteST. VINCENT'S HOSPITALPatient Name: Janice ChandlerB: 1945MRN: [id number]:The patient was seen and examined. No acute changes over night, no new stroke symptoms. He feelspretty much back to his baseline.Objective:Current Facility-Administered MedicationsMedicationDoseRou teFrequencyProviderLast RateLast Dose -0.9 % sodium chloride infusion 50 mL/hrIntravenousCONTINUOUSSa kady Flores MD50 mL/hr at09/08/16 119965 mL/hr at 09/08/16 0818 -0.9 % sodium chloride solution saline flush 3 mL 3 mLIntravenous3 times per dayJameson Peters MD3 mL at 09/07/16 1300 -0.9 % sodium chloride solution saline flush 3 mL 3 mLIntravenousAS NEEDEDJameson Sheridan MD -acetaminophen (TYLENOL) tablet 650 mg 650 mgOralEVERY 4 HOURS PRJaime Flores MD650 mg at09/07/16 1439Or -acetaminophen (TYLENOL) suppository 650 mg 650 mgRectalEVERY 4 HOURS PRJaime Flores MD -ALPRAZolam (XANAX) tablet 1 mg 1 mgOralNIGHTLY AT BEDTIME Elly Flores MD1 mg at09/07/16 2155 -aspirin EC tablet 325 mg 325 mgOralDAILYJailene Flores MD325 mg at 09/08/16 0819Or -aspirin suppository 300 mg 300 mgRectalDAILSherly Flores MD -atropine 0.1 mg/ mL injection 0.5-1 mg 0.5-1 mgIntravenousROBERTO Sheridan MD -clopidogrel (PLAVIX) tablet 75 mg 75 mgOralDAILYSakady Flores MD75 mg at 09/08/16 0819 -enoxaparin (LOVENOX) injection 40 mg 40 mgSubcutaneousDAILY AT 0800Sakady Flores MD40 mgat 09/08/16 0818 -hydrALAZINE (APRESOLINE) injection 10 mg 10 mgIntravenousEVERY 6 HOURS PRNSjordan Flores MD -HYDROcodone-acetaminophen (NORCO) 5-325 mg per tablet 1 tablet 1 tabletOralEVERY 6 HOURSPRNValorierigissell Sommer MD1 tablet at 09/08/16 0436 -lidocaine (XYLOCAINE) injection 50-100 mg 50-100 mgIntraLeila Sheridan MD -metoprolol tartrate (LOPRESSOR) tablet 25 mg 25 mgOralTWO TIMES DAILYValerigissell Sommer MD25 mg at 09/08/16 0819 -morphine injection 2 mg 2 mgIntravenousQ5 Min PRStephanie Sheridan MD -nitroGLYCERIN (NITROSTAT) SL tablet 0.4 mg 0.4 mgSublingualQ5 Min PRStephanie Sheridan MD -ondansetron (ZOFRAN) injection 4 mg 4 mgIntravenousEVERY 4 HOURS PRNSSophie Crum -ondansetron (ZOFRAN-ODT) disintegrating tablet 4 mg 4 mgOralEVERY 4 HOURS PRNSjordan Flores MD -promethazine (PHENERGAN) 12.5 mg in 0.9 % sodium chloride 50 mL IVPB 12.5 mgIntravenousEVERY4 HOURS PRNSSophie Crum -promethazine (PHENERGAN) injection 12.5 mg 12.5 mgIntramuscularEVERY 4 HOURS PRNSSophie George -promethazine (PHENERGAN) tablet 12.5 mg 12.5 mgOralEVERY 4 HOURS PRNSjordan Flores MD -senna-docusate (SENOKOT-S) 8.6-50 mg per tablet 2 tablet 2 tabletOralNIGHTLY AT BEDTIMEPRJaime Flores MD -simvastatin (ZOCOR) tablet 10 mg 10 mgOralNIGHTLY AT BEDTIMESjordan Flores MD10 mg at09/07/162022Vital Signs:BP: 137/97 mmHg (09/08 809)Temp: 98 ?F (36.7 ?C) (09/08 809)Heart Rate: 72 (09/08 809)Resp: 17 (09/08 809)SpO2: 96 % (09/08 944)FiO2 (%): 21 % (09/08 944)O2 Flow Rate (L/min): 0 L/min (09/08 944)Cardiac (WDL): --Cardiac Rhythm: Normal sinus rhythm (09/08 746)General: AANDO x 4, NAD, cooperativeHEENT: NC/AT, EOMI, PERRL, mmm, no carotid bruits, neck suppleHeart: RRRLungs: CTABExtremities: no edema, no calf tenderness b/lNeurological Exam: Mental Status: AANDO x 4, NAD, speech clear, language fluent, follows all commands appropriately,repetition and naming intact Cranial Nerves: CN II-XII intact Sensation: intact LT/temp UE/LE's b/l Motor: 5/5 UE/LE's b/l, tone and bulk normal, no pronator drift Reflexes: 2/4 biceps, triceps, brachioradialis, patellar, and achilles bilaterally; flexorplantar responses bilaterally Coordination: Tremors-- None Gait/Station: DeferredLabs:Recent Labs 09/07/1616 09/07/16 1054WBC 8.8 --HEMOGLOBIN 15.3 --NA 139 --K 4.8 --CL 101 --CO2 27 --BUN 14 --CREATININE 1.03 --INR 1.0 1.1PTT -- 41.2*,Last TSH ResultsResults for orders placed or performed during the hospital encounter of 09/07/16TSHResultValueRef RangeTSH0.7050.358-3.740 uIU/mL,Last Free T4 ResultsNo results found for this or any previous visit.,Results for orders placed or performed during the hospital encounter of 09/07/16Lipid PanelResultValueRef DkybuVxzgbrbrfsw929<=200 mg/cRPlsfthlzhhhrf511 (A)0-149 mg/dLHDL36 (A)40-60 mg/dLLDL Cholesterol0-99 mg/tTCLJZ71 (A)0-40 mg/dL,No results found for this or any previous visit.Last Liver Function Results:No results for input(s): ALT, AST, BILIDIR, ALKPHOS in the last 168 hours.Invalid input(s): BILITOTALImaging/Other Studies:CT head: nonacute, 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 With multiple scatter acute infarctions. History ofstroke in November with left arm weakness which has improved. Medically optimized currently on dualantiplatelet therapy and statin.1.Neurologic Examination: nonfocal, nonlateralizing.2.Neurodiagn ostics1. 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 MRI brain: Multiple scattered embolic infarctions throughout the MCA/FINANCE BROKER distribution3. CUS: B 1-49%4. Echo: EF: 60%3.Risk Factors: age, HTN, recent infarct.4.Secondary stroke prevention: on ASA, Plavix and Zocor outpatient.5.Recommend BRENDAN as this patient has very likely embolic origin of infarctions with a stable ECHO.BRENDAN scheduled for 2. If this is normal, would recommend outpatient superintendent container terminal event monitoring.6.Follow up outpatient with stroke clinic7.Continue PT/OT/Judith Bocanegra DO 09/08/2016 [facility] Progress Notes Encounter Department : [facility] MED SURG WESTProgress Notes by Devyn Mcmahon OT at 09/08/2016 8:30 AMAuthor: SUNNY Olveraervice: OT TreatmentAuthor Type: Occupational TherapistFiled: 09/08/2016 10:55 AMNote Time: 09/08/2016 8:30 AMNote Type: Progress NotesStatus: SignedEditor: Devyn Mcmahon OT (Occupational Therapist)[facility] Occupational Therapy TreatmentAdmit date: 09/07/2016 Today's Date: 09/08/2016Patient Name/MR#: Janice Shultz [id number] [address] Diagnosis: Left arm numbness [R20.0]TIA (transient ischemic attack) [G45.9]Admitting Provider:No admitting provider for patient encounter.Height:5' 11 (1.803 m) Weight: 196 lb 12.8 oz (89.268 kg)Recent Labs:Recent Labs 09/07/16 0816HEMOGLOBIN 15.3Current Medical Status: per chart review: 71 y.o. R - handed male presenting to [facility] with left arm numbness and tingling that he woke up with. He went to bed feeling himself at 2200. He woke up this morning with his symptoms. He had a stroke with left sided symptoms lastApril. He states that his left arm feels clumsy and that he does not have full control. No symptomsin his face or leg.Prior Level of Function, Home Environment, DME, I/ADLS: pt lives with spouse, 2 level home,bed/bath upstairs, walk in shower, s/c built in, denies gb, 2 KEYSHAWN, full flight up and downstairswith HR. 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, as pt is from [facility], when this occurred; pt and shareIADL; pt reports he has built 3 housesPrecautions / Important Patient Information:Activity/Safety: Assist to bedside commodeComments/Precautions: IV site, bed alarm, fall riskPertinent info since last OT session:Precautions:Universa lFall riskOrthopedicWeightbearingB ackCervicalPacerSeizureConta ctAirborneDropletNeutropenic Comments:SUBJECTIVE:Pt states agreeable to OT treatmentRN Char briones therapyPain Rating Score: 0/10 Pain Location: NATherapist Pain Intervention (if pt reported unacceptable level of pain): no intervention necessaryat this timeOBJECTIVE:Mental StatusAlertDrowsyLethargicUn responsiveCooperativeUncoope rativeAppropriateInappropria teFollows Commands1 Step2 StepMultiStepNoneConsistentl yInconsistentlyEasily DistractedDelayedOrientation PersonPlaceTimeEventsComment s:Barriers to LearningNoneCognitionHearing VisionMotivationReadinessEas lupe DistractedJudgmentInsightAwa renessPre-MorbidMental StatusLanguage barrierNon-Guinean SpeakingCommunicationBarrier Observations/Vitals: pt seen supine with telemetry, IVEnvironmental Safety:RN aware of patient's status, Phone within reach, Patient sitting up in chair, Gait belt used, Calllight within reach and All lines intactCOGNITIONWFLImpairedCo mmentsAttention SpanxAttention L-R / NeglectxPraxisxProblem SolvingxSafety/JudgementxMem oryxExecutive FunctionsUE Range of Motion/strength:Pt completed FM tasks this date focusing on pincer grasp as well as tripod grasp, utilizing L hand.Pt able to complete with min VC for maintaining proper grasp on items. Pt reports mild fatigue,however declined FM fatigue, pt attributing fatigue to hand eye coordination concentration. ptthen utilized tripod grasp to obtain 15 marbles, able to grasp with digits and manipulate intohand/maintain grasp without dropping.Motor Coordination: No noted changes since last session Changes noted:Sensation: No noted changes since last session Changes noted:ADL'SIndMod-ISupSetupS BACGAMINModMaxTotalNot Addressed this sessionFeedingxGroomingxBath ingxUB DressingxLB DressingxToiletingxADL Comments: pt able to manipulate toothbrush, open toothpaste container and brush teeth utilizingboth hands this date. Pt donned pants at setup, increased time/effort for tieing pants, howeversignificant improvement noted today. Pt able to don shoes at setup, able to manipulate ties and tieshoestrings with increased time, again, improved from evaluation.MobilityIndMod-IS upSetupSBACGAMINModMaxTotalN ot Addressed this sessionRollingxSupine-SitxSi t-SupineUp in chair following treatmentSit to StandxBed to ChairxToilet TransferxTub/Shower xFunctional Mobility Comments: bed mobility completed PA, use of unilateral BR. Pt completed STSfrom EOB SBA when pulling up pants, mild LOB, pt able to self correct. Pt then returned to sitting.Pt amb 10 ft to bathroom no AD SBA, stood at sink during ADL SBA. Pt amb 24 ft to bedside chair noAD, SBA, mild LOB noted however able to self correct, transferred to chair at SBA. Educated pt onsafety/mobility, pt reports LOB 2/2 not concentrating fully. however, pt verbalizedunderstanding, agreeable to call RN/NA prior to further mobility.Balance:SittingStat ic- INDDynamic- SUPStandingStatic-SBADynamic -SBAPatient Summary:The patient continues to exhibit the following deficits: decreased self care, activity tolerance,strengthPatient/Fa suzie Education: Role of OTEducated about DxUse of Call Light for assistancePrecautionsHEP issued Home SafetyEnergy Conservation Family PresentAdaptive Equipment TrainingMobility Importance/SafetyBody MechanicsPt unable to LearnHandout issuedOther:Comments:ASSESSM ENT:Interdisciplinary Communication:Spoke w/ RN prior to sessionSpoke w/Social ServicesOT informed of any significant changes in patient status that may require adjustment of the POC orD/C recRN notifiedabout issues during treatmentCo-tx with PTRehab Dx same as evaluation.Rehab Potential:ExcellentGoodFairP oorGuardedComments:Patient/F amily GoalOngoingNot MetMetUnable to StateOT Rehab Goals (all goals not met are ongoing):LTG (3 weeks): Pt will return to prior level of function with ADL and mobilitySTG (1 week):1. Pt will complete UB ADL MI2. Pt will complete LB dressing PA, using AE as needed3. Pt will stand x10 minutes PA while completing ADL tasks with no inc in pain.4. Pt will complete chair/bsc/toilet transfer with MI5. Pt will complete HEP with SBA to assist with ADL and mobility6. Pt will complete 3 FM tasks with setup7. Pt will complete toileting/hygiene tasks MI8. Pt will complete bathing/hygiene tasks with MIDischarge Recommendations:OT Discharge Recommendations: Outpatient OTOT Discharge Equipment Needs: None*Patient equipment needs may change pending patient?s progress and discharge disposition duringacute hospitalization.PLAN: (as discussed with patient/family and agreed upon)Continue POC developed after OT evaluationOT reassess due to:Pt functioning at/near baseline.Will discontinue skilled Acute OT at this time. Please re-order OT if pt's condition decreasesPlan to Include: ADL, Functional Transfers, Balance, Therapeutic Exercise, Therapeutic Activities,Pt/Family Education/Training, Safety Training, Instruction in Use of Adaptive Equipment, HEPTherapy Frequency: 6-7days/wkDuration of Treatment: 2 weeksDevyn Mcmahon OTR/LTime In: 805 Time Out: 830Total Treatment Time: 25Timed Code Minutes : 25 Normal [facility] BASIC METABOLIC PANELon 08-14 Anion gap 11 mmol/L Normal -16 [facility] Comment on above: Performed By: #### L [id number] ####[facility] [id number] [place] [address] [facility] [place] [address] [address] [place] [phone]#### [id number] ####[facility] [id number] [place] [address] [facility] BUN (urea nitrogen) 14 mg/dL Normal 7-18 [facility] Comment on above: Performed By: #### L [id number] ####[facility] CLIA [id number] [place] [address] [facility] [place] [id number], [place] [phone]#### [id number] ####[facility] CLIA [id number] [place] [address] [facility] Calcium 9.2 mg/dL Normal 8.5-10.1 [facility] Comment on above: Performed By: #### L [id number] ####[facility] [id number] [place] [address] [facility], [place] [phone]#### [id number] ####[facility] CLIA [id number] [place] [address] [place] Chloride 101 mmol/L Normal 98-107 [facility] Comment on above: Performed By: #### L [id number] ####[facility] [id number] [place] [address] [facility], [place] [phone]#### [id number] ####[facility] [id number] [place] [address] [place] CO2 27 mmol/L Normal 21-32 [facility] Comment on above: Performed By: #### L [id number] ####[facility] [id number] [place] [address] [facility], [place] [phone]#### [id number] ####[facility] [id number] [place] [address] [place] Creatinine 1.03 mg/dL Normal 0.60-1.30 [facility] Comment on above: Performed By: #### L [id number] ####[facility] [id number] [place] [address] [facility], [place] [phone]#### [id number] ####[facility] AND [facility] CLIA [id number] [place] [address] [place] eGFR (black) mL/min/{1.73_m2} Normal >60 [facility] Comment on above: Result Comment: GFR is estimated using creatinine, age, gender, and race. Patient's values should be interpreted as a trend. For additional information: [email or web address] Performed By: #### L [id number] ####[facility] CLIA [id number] [place] [address] [facility], [place] [phone]#### [id number] ####[facility] CLIA [id number] [place] [address] [place] eGFR (non-black) mL/min/{1.73_m2} Normal >60 [facility] Comment on above: Result Comment: GFR is estimated using creatinine, age, gender, and race. Patient's values should be interpreted as a trend. For additional information: [email or web address] Performed By: #### L [id number] ####[facility] AND [facility] CLIA [id number] [place] [address] [facility], [place] [phone]#### [id number] ####[facility] CLIA [id number] [place] [address] [place] Glucose mass conc 115 mg/dL Abnormal 74-106 [facility] Comment on above: Performed By: #### L [id number] ####[facility] CLIA [id number] [place] [address] [facility], [place] [phone]#### [id number] ####RZAA AND [facility] CLIA [id number] [place] [address] [place] Potassium molar conc 4.8 mmol/L Normal 3.5-5.1 [facility] Comment on above: Result Comment: Mode rate hemolysis present. Performed By: #### L [id number] ####[facility] CLIA [id number] [place] [address] [facility], [phone]#### [id number] ####[facility] CLIA [id number] [place] [address] [facility] Sodium 139 mmol/L Normal 136-145 [facility] Comment on above: Performed By: #### L [id number] ####[facility] [id number] [place], [facility] [facility] [place] [id number], [phone]#### [id number] ####[facility] [id number] [place] [address] [facility] CBC W/DIFFon 09-07-2016 Basophils/100 WBC Auto (Bld) 1.0 % Normal [facility] Comment on above: Performed By: #### L [id number] ####[facility] [id number] [place] [address] [facility] [facility] [place] [phone], [phone]#### [id number] ####[facility] [id number] [place], [place] [address] BSA (Body Surface Area) 0.1 K/uL Normal 0.0-0.1 [facility] Comment on above: Performed By: #### L [id number] ####[facility] [id number] [place] [address] [facility] [place] [phone], [place] [address]#### [id number] ####[facility] [id number] [place] [address] [place] Eosinophils 0.2 10*3/uL Normal 0.0-0.4 [facility] Comment on above: Performed By: #### L [id number] ####[facility] [id number] [place] [address] [facility] [place] [phone], [place] [address]#### [id number] ####[facility] [id number] [place] [address] [place] Eosinophils 2.7 10*3/uL Normal [facility] Comment on above: Performed By: #### L [id number] ####[facility] [id number] [place] [address] [facility] [place] [phone], [place] [address]#### [id number] ####[facility] [id number] [place] [address] [place] Erythrocyte distribution width Auto Ratio (RBC) 11.8 % Normal 11.7-15.2 [facility] Comment on above: Performed By: #### L [id number] ####[facility] [id number] [place] [address] [facility] [place] [phone], [place] [address]#### [id number] ####[facility] [id number] [place] [address] [place] Erythrocytes (RBC) 5.42 10*6/uL Normal 4.30-5.86 [facility] Comment on above: Performed By: #### L [id number] ####[facility] [id number] [place] [address] [facility], [phone]#### [id number] ####[facility] [id number] [place] [address] [facility] Hematocrit (HCT) 45.8 % Normal 39.0-51.5 [facility] Comment on above: Performed By: #### L [id number] ####[facility] [id number] [place] [address] [facility] [place] [phone], [address]#### [id number] ####[facility] [id number] [place] [address] [facility] Hemoglobin mass conc (Bld) 15.3 g/dL Normal 13.1-17.6 [facility] Comment on above: Performed By: #### L [id number] ####[facility] [id number] [place] [address] [facility] [place] [phone], [address]#### [id number] ####[facility] [id number] [place] [address] [place] Lymphocytes 1.2 10*3/uL Normal 0.8-3.6 [facility] Comment on above: Performed By: #### L [id number] ####[facility] [id number] [place] [address] [facility] [place] [phone], [phone]#### [id number] ####[facility] [id number] [place] [address] [place] Lymphocytes 13.9 10*3/uL Normal [facility] Comment on above: Performed By: #### L [id number] ####[facility] [id number] [place] [address] [facility] [facility] [place] [phone], [place] [address]#### [id number] ####[facility] [id number] [place] [address] [facility] MCH 28.3 pg Abnormal 28.4-33.4 [facility] Comment on above: Performed By: #### L [id number] ####[facility] [id number] [place] [address] [facility] [place] [phone], [place] [address]#### [id number] ####[facility] [id number] [place] [address] [facility] MCHC mass conc (RBC) 33.5 g/dL Normal 31.1-37.0 [facility] Comment on above: Performed By: #### L [id number] ####[facility] [id number] [place] [address] [facility] [place] [phone], [address]#### [id number] ####[facility] [id number] [place] [address] [facility] MCV 84.5 fL Abnormal 85.0-99.0 [facility] Comment on above: Performed By: #### L [id number] ####[facility] [id number] [place] [address] [facility], [phone]#### [id number] ####[facility] [id number] [place] [address] [place] Monocytes 6.2 10*3/uL Normal [facility] Comment on above: Performed By: #### L [id number] ####[facility] [id number] [place] [address] [facility], [place] [phone]#### [id number] ####[facility] [id number] [place] [address] [place] Monocytes 0.5 10*3/uL Normal 0.3-0.9 [facility] Comment on above: Performed By: #### L [id number] ####[facility] [id number] [place] [address] [facility], [phone]#### [id number] ####[facility] [id number] [place] [address] [place] Neutrophils 6.8 10*3/uL Normal 2.0-7.3 [facility] Comment on above: Performed By: #### L [id number] ####[facility] [id number] [place] [address] [facility], [place] [phone]#### [id number] ####[facility] [id number] [place] [address] [place] Neutrophils 76.2 10*3/uL Normal [facility] Comment on above: Performed By: #### L [id number] ####[facility] CLIA [id number] [place] [address] [facility], [place] [phone]#### [id number] ####[facility] [id number] [place] [address] [facility] Platelets 197 10*3/uL Normal 154-393 [facility] Comment on above: Performed By: #### L [id number] ####[facility] [id number] [place] [address] [facility] [place] [id number], [place] [address]#### [id number] ####[facility] [id number] [place] [address] [facility] WBC (Leukocytes) 8.8 10*3/uL Normal 4.0-10.5 [facility] Comment on above: Performed By: #### L [id number] ####[facility] [id number] [place] [address] [facility] [place] [id number], [place] [address]#### [id number] ####[facility] [id number] [place] [address] [facility] CT-HEAD W/O CONTRASTon 09-07 CT-HEAD W/O CONTRAST CT-HEAD W/O CONTRAS T DATE OF EXAM: 09/07/2016 8:07 AMCLINICAL INDICATION: CVAPATIENT INFORMATION: History: Left arm tingling and numbness that started this morning, right mosque pain with activity. Patient had a stroke a year ago.. Number of Series/Images: 3. COMPARISON: CT head and MRI brain 11/25/2015TECHNIQUE: The CT head was performed without contrast. CT radiation dose optimization techniques (automated exposure control, use of iterative reconstruction techniques, or adjustment of the mA and/or kV according to patient size) were used to limit patient radiation dose.FINDINGS: The ventricles and sulci are normal with no midline shift or mass effect. Again demonstrated is a small area of encephalomalacia in the right parieto-occipital lobe consistent with a small old infarction. There is decreased attenuation in the periventricular and deep white matter regions of the brain consistent with small vessel ischemic disease changes. There are no other intraparenchymal abnormalities or abnormal extracerebral fluid collections. On bone window imaging, the osseous structures are intact. There is mucoperiosteal thickening involving all the paranasal sinuses. The mastoid air cells are clear.1. No acute intracranial abnormalities.2. Stable small old infarction in the right parieto-occipital lobe.3. Stable small vessel ischemic disease changes.4. Chronic pansinusitis.Electronically Signed by: Titus Kurtz MD, 09/07/2016 8:13 AM [facility] Consultson 09-07-2016 Consults Encounter Department : [facility] MED SURG WESTConsults by Franky Villalobos MD at 09/07/2016 2:32 PMAuthor: ANDRESSA Henryervice: CardiologyAuthor Type: PhysicianFiled: 09/07/2016 4:44 PMNote Time: 09/07/2016 2:32 PMNote Type: ConsultsStatus: SignedEditor: Franky Villalobos MD (Physician)Related Notes:Original Note by Monet Wallace PA-C (Physician Clay Temperer) filed at 09/07/2016 3:56 PM Consult Orders: 1. IP Consult to Cardiology [[id number]] ordered by Devyn Bocanegra DO at 09/07/16 1404Cardiology Inpatient ConsultName: Janice Kerr/Time of Admission: 09/07/2016 7:48 AMCSN: [id number] Provider: Ivan Russell/Bed: R3306/G9009HFSB: 1945 Age: 71 y.o.Assessment:Acute SMC-OML-yariwwjf right side acute strokesA. Hx of CVA right parieto-occipital lobe 11/26 has been on Plavix, ASACarotid stenosis bilateral ICA 1-49% stenosis CAD s/p PA 2014 with stent r8-UvpozzheDXELJR-zu simvastatinHypertriglyceride [facility] Lifter: Barbara Gupta:HR and BP stable. Have not seen arrhythmia on monitor. Will benefit from 2-4 week cardiac monitoras outpatient.Will monitor for atrial fibrillation while admitted, check Mg.Continue ASA, Plavix, metoprolol 25mg BID, ZocorSwallow study ok.Currently CV stable.The patient was seen, examined, records reviewed and discussed with Dr. Villalobos.Thank-you for this consultation.Monet Wallace PA-C [facility] 09/07/16TTENDING:Patient examined and chart reviewed.CV stable without angina or CHF. Has had multiple strokes and neurology evaluating. Would recommend2 week OP telemetry at the least in addition to whatever neurology suggests.FRANKY VILLALOBOS MD 09/07/2016 4:42 PMHPI: Janice Shultz is a 71 y.o. male who presented to the ER after he woke with left arm numbnessand tingling. He also had a headache all day, worsens with cough or straining. He also reportssome fuzzy vision changes. Subsequent MRI showed multiple right CVA. Pt reports having CVA November 2015. He followed up with his debug technician in [place], wore a backpackers manager for a short time.(pt thinks 2 days) No arrhythmias were noted. He is active and works out at the gym every day withaerobic activity and weights. He denies chest pain, SOB, palpitations, PND, orthopnea, pedal edema,lightheadedness, presyncope or syncope. Cardiac enzymes negative.Past Medical HistoryDiagnosisDate -Myocardial infarction (HCC) -Hypertension -Cerebral infarction (HCC)November 2015right parietal-occipital regionPast Surgical HistoryProcedureLateralityDa te -Hernia repairSocial HistorySocial History -Marital Status:MarriedSpouse Name:N/A -Number of Children:N/A -Years of Education:N/AOccupational History -Not on file.Social History Main Topics -Smoking status:Never Smoker -Smokeless tobacco:Not on file -Alcohol Use:No -Drug Use:Not on file -Sexual Activity:Not on fileOther TopicsConcern -Not on fileSocial History NarrativeFamily HistoryProblemRelationAge of Onset -HypertensionMother -StrokeMotherdied of it @ 82 -Prostate cancerFatherAllergiesAllerge nReactions -Lipitor [Atorvastatin]CrampsIs able to take Zocor without problems,Prior to Admission medicationsMedicationSigStar t DateEnd DateTaking?Authorizing ProviderALPRAZolam (XANAX) 1 mg tabletTake 1 mg by mouth at bedtime as needed for Sleep.YesHistoricalProvider, MDaspirin 81 mg enteric coated tabletTake 81 mg by mouth daily.YesHistorical Provider, MDCLOPIDOGREL BISULFATE (PLAVIX PO)Take by mouth.YesHistorical Provider, MDmetoprolol tartrate (LOPRESSOR) 25 mg tabletTake 25 mg by mouth 2 times daily.YesHistoricalProvider, MDprasugrel (EFFIENT) 10 mg tabletTake by mouth daily.09/07/16Historical Provider, MDsimvastatin (ZOCOR) 10 mg tabletTake 4 tablets by mouth at bedtime.11/26/15YesANNI TalleyOS:No F/C/S. Weight stable. Energy stable.HEENT: Pt has headache, no trouble swallowingCV: As in HPIPul: No SOB, wheeze, hemoptysis, pleurisy.GI: No N/V/D/C. No abdominal pain. No melena hematochezia or other changes in bowel habits.UG: No dysuria, hematuria or polyuria. No incontinence.MS: No joint pain or swelling. No stiffness. No deformity.Neuro: +left arm numbnessSkin: No rashes, hair changes, nail changes.PHYSICAL EXAMVITAL SIGNS: BP 145/89 mmHg Pulse 68 Temp(Src) 97.8 ?F (36.6 ?C) Resp 16 Ht 5' 11 (1.803m) Wt 194 lb 6 oz (88.168 kg) BMI 27.12 kg/m2 SpO2 100%Constitutional: Well developed, Well nourished, No acute distress,HENT: Normocephalic, AtraumaticEyes: PERRLA, EOMINeck: Normal range of motion, No tenderness, Supple, No stridor. No JVDCardiovascular: Normal heart rate, Normal rhythm, No murmurs, No rubs, No gallops.Thorax AND Lungs: Normal breath sounds, No respiratory distress, No wheezing, No chest tenderness.Abdomen: Bowel sounds normal, Soft, No tenderness, No masses, No pulsatile masses.Skin: Warm, Dry, No erythema, No rash.Extremities: Intact distal pulses, No edemaMusculoskeletal: No major deformities noted.Neurologic: Alert AND oriented x 3,No focal deficits noted.Psychiatric: Affect normal, Judgment normal, Mood normal.I/O:Intake/Output Summary (Last 24 hours) at 09/07/16 1433Last data filed at 09/07/16 1300Gross per 24 hourIntake 0 mlOutput 400 mlNet -400 mlLabs:Recent Labs 09/07/16 0816 09/07/16 1054WBC 8.8 --HEMOGLOBIN 15.3 --HCT 45.8 --PLT 197 --NA 139 --K 4.8 --BUN 14 --CREATININE 1.03 --GLU 115* --INR 1.0 1.1PTT -- 41.2*TROPONINI <0.015 --Results for orders placed or performed during the hospital encounter of 09/07/16Lipid PanelResultValueRef NweiaCgbwczfwdwv321<=200 mg/pEBvvoyrbjetaiw549 (A)0-149 mg/dLHDL36 (A)40-60 mg/dLLDL Cholesterol0-99 mg/cNGWJT60 (A)0-40 mg/dLChest X-Ray:EXAM:XR-CHEST PA AND LATACCESSION:[id number] TE OF SERVICE:? 09/07/2016 8:26 AMORDERING PROVIDER:JAMESON PRECIADO FOR STUDY: flank pain? History:? left sided arm weakness with dizzyness. Number ofSeries/Images: 2.PATIENT DEMOGRAPHICS: 71 years, MaleCOMPARISON: 11/25/15TECHNIQUE: Frontal and lateral views of the chest were obtained.FINDINGS:Overlying EKG leads and wires obscure portions of the chest.? Cardiomediastinal silhouette appearedwithin normal limits. Pulmonary vasculature appears within normal limits. Lungs are well expandedand free of acute infiltrate.? Pleural spaces appear clear without evidence of acute effusion.Moderate degenerative changes to the thoracic spine are seen.IMPRESSION:No acute pulmonary disease process.EKG:degPreliminary?R EPORTSinus rhythmPreliminary?REPORTPrel iminary?Nonspecific intraventricular conduction delay?Interpreting PhysPreliminary?Study Date/Kvfw0314-22-54 08:32:39ECHO:4/16Summary:?1. Normal observed left ventricular ejection fraction of 60%.?2. Mild left ventricular diastolic dysfunction.?3. Mild concentric left ventricular hypertrophy.?4. Aortic root dilatation.?5. The aortic valve is calcified with no significant stenosis.Electronically signed by; Monet Wallace PA-C 09/07/2016 [facility] Consults Encounter [facility] : [facility] SURG WESTConsults by Devyn Bocanegra DO at 09/07/2016 9:47 AMAuthor: Marianne Mehtarvice: NeurologyAuthor Type: PhysicianFiled: 09/07/2016 11:02 AMNote Time: 09/07/2016 9:47 AMNote Type: ConsultsStatus: SignedEditor: Devyn Bocanegra DO (Physician) Consult Orders: 1. IP Consult to Neurology [[id number]] ordered by Jailene Flores MD at 09/07/16 0924Neurological Services Consult NoteST[facility]ITALPatient Name:Janice Shultz : 1945Subjective:CC:71 y.o. R - handed male presenting [facility] with left arm numbness andtingling that he woke up with. He went to bed feeling himself at 2200. He woke up this morning with his symptoms. He had a stroke with left sided symptoms lastApril. He states that his left arm feels clumsy and that he does not have full control. No symptomsin his face or leg.Does complain of headache but no light or sound sensitivity.Past Medical HistoryDiagnosisDate -Myocardial infarction (HCC) -Hypertension :Past Surgical HistoryProcedureLateralityDa te -Hernia repairMedications:Scheduled Meds: -saline flush 3 mLIntravenous3 times per day -aspirin 325 mgOralONCEContinuous Infusions:PRN Meds:.saline flush, atropine, lidocaine, morphine, nitroGLYCERINAllergiesAllerg enReactions -Lipitor [Atorvastatin]CrampsIs able to take Zocor without problems,Social HistorySocial History -Marital Status:MarriedSpouse Name:N/A -Number of Children:N/A -Years of Education:N/AOccupational History -Not on file.Social History Main Topics -Smoking status:Never Smoker -Smokeless tobacco:Not on file -Alcohol Use:No -Drug Use:Not on file -Sexual Activity:Not on fileOther TopicsConcern -Not on fileSocial History NarrativeFamily HistoryProblemRelationAge of Onset -HypertensionMother -StrokeMotherdied of it @ 82 -Prostate cancerFatherReview of Symptoms:10-point system review completed. All of which are negative except as mentioned above.Physical Exam:BP: 168/89 mmHg (09/07 746)Temp: 98.3 ?F (36.8 ?C) (09/07 746)Heart Rate: 77 (09/07 746)Resp: 16 (09/07 746)SpO2: 99 % (09/07 746)FiO2 (%): --O2 Flow Rate (L/min): --Cardiac (WDL): Exceptions to WDL (09/07 810)Cardiac Rhythm: Normal sinus rhythm (09/07 810)Gen: AANDO x 4, NAD, cooperativeHEENT: NC/AT, EOMI, PERRL, mmm, no carotid bruits, neck supple, no meningeal signs; Fundoscopic: nopapilledemaHeart: RRR, F4V5Vhnpa: CTABAbd: soft/NT/ND, +BSExt: no edema, no calf tenderness b/lEndo: no thyromegalyPsych: no depression or anxiety apparentSkin: no rashes or lesionsNEUROLOGIC EXAM:Mental Status: AANDO x 4, NAD, speech clear, language fluent, follows commands appropriately,repetition and naming intactCranial Nerve Exam:CN II-XII intact: No papilledema on fundoscopic examination, PERRL, VFF, no nystagmus, no gazeparesis, sensation V1-V3 intact b/l, muscles of facial expression symmetric; hearing intact toconversational tone, palate elevates symmetrically, shoulder elevation symmetric and tongueprotrudes midline with movement side to side.Motor Exam:Strength 5/5 UE's/LE's b/lTone and bulk normalNo pronator driftDeep Tendon Reflexes: 2/4 biceps, triceps, brachioradialis, patellar, and achilles b/l, flexorplantar responses b/lSensation:decreased sensation to pinprick and light touch LUE.Coordination/Cerebellum: Tremors--none Rapidly alternating movements: no dysdiadochokinesia b/l Njda-yt-Oehu: no dysmetria b/l Qscmjc-sf-Buga: no dysmetria b/lGait and stance: Gait: deferredLABS:Recent Labs 09/07/16 0816WBC 8.8HEMOGLOBIN 15.3NA 139K 4.8CL 101CO2 27BUN 14CREATININE 1.03INR 1.0GETLIPIDS@ Panel:3,Ammonia:3,UA:3@,No results found for this or any previous visit.,Last TSHResults,No results found for this or any previous visit.,Last Liver Function Results:No results for input(s): ALT, AST, BILIDIR, ALKPHOS in the last 168 hours.Invalid input(s): BILITOTALIMAGING:ASSESSMENT/ PLAN:1.71 year old male with left arm numbness. Reactivation of old stroke symptoms v. New lacunarinfarct. History of stroke in November with left arm weakness which has improved. Medically optimizedcurrently on dual antiplatelet therapy and statin.1.Neurologic Examination: left arm numbness and decreased sensation.2.Neurodiagnostics 1.CT head: nonacute, stable old infarction in right parieto-occipital lobe, stable small vesselischemic disease.2.MRI brain pending3.CUS pending3.Risk Factors: age, HTN, recent infarct.4.Secondary stroke prevention: on ASA, Plavix and Zocor outpatient.Thank you for allowing us to participate in the care of your patient. If there are any questionsregarding evaluation please feel free to contact us.Devyn Daljit, DO, 09/07/2016 9:48 AM Normal [facility] ED Provider Noteson 09-07-19 ED Provider Notes Encounter [facility] : [facility] EMERGENCY DEPARTMENTED Provider Notes by Jameson Sheridan MD at 09/07/2016 7:48 AMAuthor: ANDRESSA Wheelerervice: (none)Author Type: ED PhysicianFiled: 09/07/2016 9:17 AMNote Time: 09/07/2016 7:48 AMNote Type: ED Provider NotesStatus: AddendumEditor: Jameson Sheridan MD (ED Physician)Related Notes:Original Note by Jameson Sheridan MD (ED Physician) filed at 09/07/2016 9:17 AMCHIEF COMPLAINTChief ComplaintPatient presents with -NumbnessCornell Shultz is a 71 y.o. male who presents left arm numbness and tingling. Patient went to bedlast night at 10 PM. He woke up this morning with a symptoms. He denies any weakness in his arm.He has had prior PA and history of hypertension. Patient denies any previous injury. Patient hashad a previous left-sided stroke in the past. He was admitted to the hospital 9 months ago.History of present illness: Quality numbness location left arm duration unsure last normal 10hours ago Severity mild Timing constant Context patient awoke with left arm numbnessModifying factors none Associated signs and symptoms Numbness in left arm .REVIEW OF SYSTEMSReview of Systems: The PatientGeneral: denies any weight change fatigue no fever no chillsSkin: denies any rash or skin ulcersHead: denies any trauma or headacheEyes: denies any blurriness or itchingEars/Throat: denies hearing loss or pain denies any sore throat or teeth problemsRespiratory: denies any shortness of breath or coughCardiac: denies any chest pain or palpitationsGastroenterology : denies any nausea vomiting or diarrheaUrinary: denies any frequency or burningMusculoskeletal: denies any muscle weakness or joint painNeurologically: + Left arm numbnessHematologic: denies any bruising or bleedingPsychiatric: denies any anxiety or depression Review of systems otherwise negative.PAST MEDICAL HISTORYPast Medical HistoryDiagnosisDate -Myocardial infarction (HCC) -HypertensionFAMILY HISTORYFamily HistoryProblemRelationAge of Onset -HypertensionMother -StrokeMotherdied of it @ 82 -Prostate cancerFatherSOCIAL HISTORYSocial HistorySocial History -Marital Status:MarriedSpouse Name:N/A -Number of Children:N/A -Years of Education:N/ASocial History Main Topics -Smoking status:Never Smoker -Smokeless tobacco:None -Alcohol Use:No -Drug Use:None -Sexual Activity:Not AskedOther TopicsConcern -NoneSocial History NarrativeSURGICAL HISTORYPast Surgical HistoryProcedureLateralityDa te -Hernia repairCURRENT MEDICATIONSCurrent Outpatient RxNameRouteSigDispenseRefill -ALPRAZolam (XANAX) 1 mg tabletOralTake 1 mg by mouth at bedtime as needed for Sleep. -aspirin 81 mg enteric coated tabletOralTake 81 mg by mouth daily. -CLOPIDOGREL BISULFATE (PLAVIX PO)OralTake by mouth. -metoprolol tartrate (LOPRESSOR) 25 mg tabletOralTake 25 mg by mouth 2 times daily. -DISCONTD: prasugrel (EFFIENT) 10 mg tabletOralTake by mouth daily. -simvastatin (ZOCOR) 10 mg tabletOralTake 4 tablets by mouth at bedtime.0ALLERGIESAllergiesA llergenReactions -Lipitor [Atorvastatin]CrampsIs able to take Zocor without problems,PHYSICAL EXAM:VITAL SIGNS:ED Triage BoipqsRP16/26/17 2379165/89 bvPdXbmc11/26/17 750982.3 ?F (36.8 ?C)Heart Rate09/07/16 659384Dbel38/26/17 278087XvR659/26/17 007451 %Utovjw81/26/17 8436848 lb (86.183 kg)[place] Coma Scale Score09/07/16 121902QBP (Calculated)09/07/16 652753.6Constitutional: mild acute distress, Non-toxic appearanceHENT: Normocephalic, Atraumatic, Bilateral external ears normal, Oropharynx moist, No oralexudates, Nose normal.Eyes: EOMI, Conjunctiva normal, No discharge.Neck:Normal range of motion, No tenderness, No stridor.Cardiovascular: Normal heart rate, Normal rhythm, No murmurs, No rubs, No gallops.Pulmonary/Chest: Normal breath sounds, No respiratory distress, No wheezing, Nochest tendernessAbdomen: Bowel sounds normal, Soft, No tenderness, No masses,Back: Normal inspection, No tenderness, No CVA tendernessExtremities: Normal range of motion, Intact distal pulses, No edema, No tenderness, capillaryrefill normalLymphatic: I did not exam for this on this patientNeurologic: Alert AND oriented x 3,NIH Stroke ScaleInterval: BaselinePerson Administering Scale: [facility] stroke scale items in the order listed. Record performance in each category after eachsubscale exam. Do not go back and change scores. Follow directions provided for each examtechnique. Scores should reflect what the patient does, not what the clinician thinks the patientcan do. The clinician should record answers while administering the exam and work quickly. Exceptwhere indicated, the patient should not be coached (i.e., repeated requests to patient to make aspecial effort).1a Level of consciousness:0=alert; keenly mpquznwffk4l.LOC questions: 0=Performs both tasks vjopivqdx6y.LOC commands:0=Performs both tasks correctly2. Best Gaze:0=normal3. Visual:0=No visual loss4.Facial Palsy:0=Normal symmetric owtubpyp6j. Motor left arm:0=No drift, limb holds 90 (or 45) degrees for full 10 ckfvmxt6r. Motor right arm:0=No drift, limb holds 90 (or 45) degrees for full 10 ukdvqdy9j.motor left le=No drift, limb holds 90 (or 45) degrees for full 10 aoyiipa0z Motor right le=No drift, limb holds 90 (or 45) degrees for full 10 seconds7.Limb Ataxia:0=Absent8. Sensory:0=Normal; no sensory loss9.Best Language: 0=No aphasia, .Dysarthria:0=Normal 11.Extinction and Inattention:0=No hsvbqicztdr14.Distal motor function:0=NormalTotal: 0Skin: Warm, No rash, no mottling, flushing or pallorPsychiatric: Affect normal, Judgement normal, Mood normalEKG:EKG InterpretationInterpreted by emergency department physicianRhythm: normal sinusRate: normalAxis: normalEctopy: noneConduction: Nonspecific conduction delayST Segments: no acute changeT Waves: no acute changeQ Waves: nonspecificClinical Impression: no acute changesOld ekg reviewed from November 25, 2015Radiology:Last Imaging resultsResults for orders placed or performed during the hospital encounter of 09/07/16CT-HEAD W/O CONTRASTNarrativeCT-HEAD W/O CONTRASTDATE OF EXAM: 09/07/2016 8:07 AMCLINICAL INDICATION: CVAPATIENT INFORMATION: History: Left arm tingling and numbness that started this morning, righttemple pain with activity. Patient had a stroke a year ago.. Number of Series/Images: 3.COMPARISON: CT head and MRI brain 11/25/2015TECHNIQUE: The CT head was performed without contrast.CT radiation dose optimization techniques (automated exposure control, use of iterativereconstruction techniques, or adjustment of the mA and/or kV according to patient size) were usedto limit patient radiation dose.FINDINGS: The ventricles and sulci are normal with no midline shift or mass effect. Againdemonstrated is a small area of encephalomalacia in the right parieto-occipital lobe consistentwith a small old infarction. There is decreased attenuation in the periventricular and deep whitematter regions of the brain consistent with small vessel ischemic disease changes. There are noother intraparenchymal abnormalities or abnormal extracerebral fluid collections. On bone windowimaging, the osseous structures are intact. There is mucoperiosteal thickening involving all theparanasal sinuses. The mastoid air cells are clear.Impression1. No acute intracranial abnormalities.2. Stable small old infarction in the right parieto-occipital lobe.3. Stable small vessel ischemic disease changes.4. Chronic pansinusitis.Electronically Signed by: Titus Kurtz MD, 09/07/2016 8:13 AMXR-Chest PA AND LATNarrativeEXAM:XR-CHEST PA AND LATACCESSION:[id number] TE OF SERVICE: 09/07/2016 8:26 AMORDERING PROVIDER:JAMESON PRECIADO FOR STUDY: flank pain History: left sided arm weakness with dizzyness. Number ofSeries/Images: 2.PATIENT DEMOGRAPHICS: 71 years, MaleCOMPARISON: 11/25/15TECHNIQUE: Frontal and lateral views of the chest were obtained.FINDINGS:Overlying EKG leads and wires obscure portions of the chest. Cardiomediastinal silhouette appearedwithin normal limits. Pulmonary vasculature appears within normal limits. Lungs are well expandedand free of acute infiltrate. Pleural spaces appear clear without evidence of acute effusion.Moderate degenerative changes to the thoracic spine are seen.ImpressionNo acute pulmonary disease process.This dictation was created with voice recognition software. While attempts have been made toreview the dictation as it is transcribed, on occasion the spoken word can be misinterpreted by thetechnology leading to omissions or inappropriate words, phrases or sentences.Electronically Signed by: Kay Lew DO, 09/07/2016 8:29 AMProcedures:ED COURSE AND MEDICAL DECISION MAKING:Pertinent Labs AND Imaging studies reviewed. (See chart for details)Old records were reviewed and compared to prior evaluations . Patient had several re-examinationsfor symptoms. All imaging results were reviewed with the patient in detail and the results wereconsistent with prior stroke.I discussed numbness with patient and possible etiology.Patient denies any injury. No prior neck problems. Mild associated right head painPatient with nonacute strokes on previous CT of head. Left arm numbness. Previous left arm andleft-sided stroke in the past. Discussed with neurology Dr. Xavier. Concern for reactivation ofstroke. Concern for other involvement regarding vascular disease.Labs ReviewedCBC W/DIFF - Abnormal; Notable for the following:MCV84.5 (*)85.0-99.0 upVlfntISS12.3 (*)28.4-33.4 pgFinalAll other components within normal limitsBASIC METABOLIC PANEL - Abnormal; Notable for the following:Pncgshz787 (*)74-106 mg/dLFinalAll other components within normal limitsGLUCOSE POC RESULTS - Abnormal; Notable for the following:POC Gsjzvie143 (*)74-106 mg/dLFinalAll other components within normal limitsNarrative:Point of care test performed at bedside.PROTIME-INR - NormalNarrative:Condition and INR Therapeutic Range:Deep venous thrombosis 2.0-3.0Pulmonary embolism 2.0-3.0Acute myocardial infarction 2.0-3.0Atrial fibrillation 2.0-3.0Antiphospholipid syndrome (no other risk factors) 2.0-3.0Antiphospholipid syndrome with recurrent thromboembolism 2.5-3.0Bioprosthetic (tissue) valve 2.0-3.0Mechanical prosthetic valves 2.0-3.0 or 2.5-3.5 depending on valve type and locationTROPONIN I - NormalNarrative:Troponin I 0.045-0.600 is abnormal but not clinically relevant. Please correlate with otherclinical findings. Troponin I >0.600 is clinically relevant in accordance with WHO criteria.POC GLUCOSE, BLOOD BY GLUCOSE MONITORING DEVICE (ACCUCHCirclefive)EXTRA TUBE-SSTBP 168/89 mmHg Pulse 77 Temp(Src) 98.3 ?F (36.8 ?C) Resp 16 Ht 5' 11 (1.803 m) Wt 190 lb(86.183 kg) BMI 26.51 kg/m2 SpO2 99%FINAL IMPRESSION:RUW-0-GWDSE-10-CM 1.Left arm ukfqhdax417.0R20.0Electronic allysigned by: Jameson Sheridan, 09/07/2016Jameson Sheridan MD09/07/16 0917Jameson Sheridan MD09/07/16 0917 Normal [facility] EKG STANDARD 12 LEADon 09-07 Pulse (Heart Rate) RR Interval= 845 msP R Interval= 167 msQRSD Interval= 118 msQT Interval= 383 msQTc Interval= 417 msHeart Rate= 71 msP Diana= 47 degQRS Diana= -31 degT Wave Diana= 3 degI: 40 Diana= -47 degT: 40 Diana= -40 degST Diana= 61 degSinus rhythm Left axis deviation Electronically Signed by: Alberto Newman) 08-Sep-2016 07:49:38 Date and Time of Study: 2016-09-07 08:32:39 Normal [facility] HEMOGLOBIN A1Con 09-07-2016 Glucose mass conc 131 mg/dL Abnormal 68-126 [facility] Comment on above: Performed By: #### L [id number] ####[facility] [id number] [place] [id number] [facility], [place] [address]#### [id number] ####[facility] [id number] [place] [address] [facility] Hemoglobin A1c/Hemoglobin.total mass fraction (Bld) 6.2 % Abnormal 4.0-6.0 [facility] Comment on above: Performed By: #### L AB320 ####[facility] [id number] [place] [address] [facility] [place] [id number] [place] [place] [address], [place] [address]#### [id number] ####[facility] [id number]ITAL[address]BE[address], [address] Hemoglobin A1c/Hemoglobin.total mass fraction (Bld) Normal [facility] Comment on above: Result Comment: Ther apeutic goals for glycemic control:-Goal of therapy :< 7.0% TkA0x-Jepylo suggested: >8.0% HbA1c Performed By: #### L AB320 ####[facility] [id number] [place] [address] [facility] [place] [id number] [place] [facility] [place] [address], [place] [address]#### [id number] ####[facility] [id number] [address] [place] [address] [facility] History and Physicalon 09-07 History and Physical Encounter Departmen t: [facility] MED SURG WESTHANDP by Jailene Flores MD at 09/07/2016 9:30 AMAuthor: ANDRESSA Russellervice: Internal MedicineAuthor Type: PhysicianFiled: 09/07/2016 5:17 PMNote Time: 09/07/2016 9:30 AMNote Type: HANDPStatus: SignedEditor: Jailene Flores MD (Physician)History and Physical Patient Name: Janice ChandlerB: 1945MRN#: [id number] Room / Bed : ED 07/24 [facility]ily : [facility] Date of Service: 09/07/2016CSN: [id number] Admit Date: 09/07/2016 7:48 AM Attending Physician: Jailene Flores MD Primary Care Physician: PROVIDER NOT IN SYSTEM, NoneImpression: -TIA versus evolving stroke -HTN -HL -CAD status post stentPlan of Care: -Patient came to hospital with LUE weakness and numbess/tinglingRisk factors include Age/HTN/HLNC CT head did not show any evidence of acute intracranial process including hemorrhage.EKG in ER did not show any Afib/aflutter.Based on the ABCD2 score of 5Will admit inpatient on telemetryActivate Stroke pathwayPt. Loaded with aspirin in ED will continueGive or continue statinsWill obtain carotid duplex and MRI Brain/MRA Brain and neck.DVT prophylaxis with SCD + S/q LovenoxWill hold Home antihypertensive and allow permissive HTN but would use IV Hydralazine 10 mg F4dpXAX for SBP > 160For further risk stratification, will check Fasting Lipid panel in AM, A1C, TSH.Frequent Neuro status checks will be performed.Will consult neurology.Echo with Bubble study to r/o PFOKeep a low threshold for transfer to ICU if patient become hemodynamically stable and pageHospitalist on-call for evalProphylaxis. I will place the patient on Lovenox. No indication for GI prophylaxisFull Code. Care d/w family, who is present at beside. No barriers to communication exist.CHIEF COMPLAINTChief ComplaintPatient presents with -NumbnessHPIHistory obtained from patient and medical recordJanice Shultz is a 71 y.o. male with a PMH history as below who was BIBEMS to the ER with c/o upperextremity weakness when he woke up this morning. He described the weakness is unable to grab orhold anything in the symptom lasted for almost 30-45 minutes. Later he felt numbness and tinglingin his left hand. At no point he endorses word finding difficulty or blurred vision or chest painbut do endorses some lightheadedness when he was trying to walk his dog out with some mildly ataxialasting for few minutes.Since the numbness and tingling of the left upper extremity persistent it did not went away hencehe came to the emergency room for further evaluation.Onset: SuddenDuration: UnknownSeverity: ModerateAssociated symptom: Positive for lightheadedness but denies any blurred vision or chest pain orword finding difficulty of facial weakness or headache or nausea or vomiting or diarrhea or dysuriaor hematemesis or melenaReview of Systems1.A 10-system Review of Systems was performed and is negative unless otherwise stated in the HPIabove.Past History1.I have personally reviewed all of the EMR-populated past history ag that appear below andhave confirmed them with the patient to the farthest extent possible.Past Medical HistoryPast Medical HistoryDiagnosisDate -Myocardial infarction (HCC) -HypertensionPast Surgical HistoryPast Surgical HistoryProcedureLateralityDa te -Hernia repairMedicationsNo current facility-administered medications on file prior to encounter.Current Outpatient Prescriptions on File Prior to EncounterMedicationSigDispen seRefill -ALPRAZolam (XANAX) 1 mg tabletTake 1 mg by mouth at bedtime as needed for Sleep. -aspirin 81 mg enteric coated tabletTake 81 mg by mouth daily. -metoprolol tartrate (LOPRESSOR) 25 mg tabletTake 25 mg by mouth 2 times daily. -[DISCONTINUED] prasugrel (EFFIENT) 10 mg tabletTake by mouth daily. -simvastatin (ZOCOR) 10 mg tabletTake 4 tablets by mouth at bedtime.0Outpatient Prescriptions Marked as Taking for the 09/07/16 encounter (Hospital Encounter)MedicationSigDispe nseRefill -ALPRAZolam (XANAX) 1 mg tabletTake 1 mg by mouth at bedtime as needed for Sleep. -aspirin 81 mg enteric coated tabletTake 81 mg by mouth daily. -CLOPIDOGREL BISULFATE (PLAVIX PO)Take by mouth. -metoprolol tartrate (LOPRESSOR) 25 mg tabletTake 25 mg by mouth 2 times daily. -simvastatin (ZOCOR) 10 mg tabletTake 4 tablets by mouth at bedtime.0AllergiesAllergiesA llergenReactions -Lipitor [Atorvastatin]CrampsIs able to take Zocor without problems,Social HistorySocial HistorySocial History -Marital Status:MarriedSpouse Name:N/A -Number of Children:N/A -Years of Education:N/ASocial History Main Topics -Smoking status:Never Smoker -Smokeless tobacco:None -Alcohol Use:No -Drug Use:None -Sexual Activity:Not AskedOther TopicsConcern -NoneSocial History NarrativeFamily HistoryFamily HistoryProblemRelationAge of Onset -HypertensionMother -StrokeMotherdied of it @ 82 -Prostate cancerFatherPHYSICAL EXAMVITALS:BP 168/89 mmHg Pulse 77 Temp(Src) 98.3 ?F (36.8 ?C) Resp 16 Ht 5' 11 (1.803 m) Wt 190 lb(86.183 kg) BMI 26.51 kg/m2 SpO2 99%No intake or output data in the 24 hours ending 09/07/16 0930Gen: NAD, looks appropriate for ageEye: ESTHER, EOMI, No Pallor, No Icterus, No Lid Lag, No NystagmusNose: Midline, No Rhinorrhea ,No Turbinate HypertrophyOropharynx: Moist Mucus membrane, normal dentition, no pharyngeal erythemaEars: B/L Symmetrical, normal hearing to finger tapping, no dischargeNeck: Supple, No JVD, No Thyromegaly,No Tender massCVS: S1S2 RRR, No murmur, rub or gallopResp: Clear to auscultation, No wheezing, No Crackles. Normal Resp effortAbdo: BS+, soft nontender, Non Distended, No hepatosplenomegaly, No Guarding,No rigidity, no reboundNeuro: AOX3, nonfocal motor call. Numbness and tingling left upper extremityPsychs: Appropriate mood and affect, Good Insight and judgementExtrem: No P. Edema, No Cyanosis, ROM normalSkin: no rash, no subcutaneous nodule palpatedPertinent Data:Last BMP Results:Recent NpenWyf71/26/17 6741IF920I3.8GP404YD530TQE35 CREATININE1.07VVR625*CALCIUM 9.2No results found for this or any previous visit.Last CBC w diff Results:Recent UwhtWxt63/26/17 1556RYT4.8VHGOYBLTZS07.3HCT4 5.2IBX075RKB7.34NLGH91.5MCH2 8.3*RDW11.0NVRNDSQYYHQ06.2MO NOCYTES6.2Last Liver Function Results:No results for input(s): ALT, AST, BILIDIR, ALKPHOS in the last 168 hours.Invalid input(s): BILITOTALNo results for input(s): AMYLASE, LIPASE in the last 72 hours.Cardiac Enzymes:Recent Labs 09/07/16 0816TROPONINI <0.015 IMAGING:Xr-chest Pa AND Lat09/07/2016 IMPRESSION: No acute pulmonary disease process. This dictation was created with voicerecognition software. While attempts have been made to review the dictation as it is transcribed,on occasion the spoken word can be misinterpreted by the technology leading to omissions orinappropriate words, phrases or sentences. Electronically Signed by: Kay Lew DO, 09/07/20168:29 AMCt-head W/o Contrast09/07/2016 IMPRESSION: 1. No acute intracranial abnormalities. 2. 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 3. Stable small vessel ischemic disease changes. 4. Chronic pansinusitis. Electronically Signed by: Titus Kurtz MD, 09/07/2016 8:13 AMI have personally reviewed all imaging and agree with the read(s) as outlined above.EKG: I have personally reviewed the 12 lead EKG and shows NSR @ 71 bpmThis note was created using LinguaNext Speaking dictation softwareJailene Flores MD09/07/2016 @ 9:30 AM Normal [facility] LDL CHOLESTEROL, DIRECTon LDL CHOLESTEROL DIRECT 100 mg/dl Normal 0-100 [facility] Comment on above: Performed By: #### L [id number] ####[facility] CLIA [id number] [place] [id number] [facility] [place] [id number] [facility] [place] [phone]#### [id number] ####[facility] CLIA [id number] [place] [id number] [facility] LDL CHOLESTEROL, DIRECT Normal [facility] Comment on above: Result Comment: ATP III Classification of LDL, Total and HDL Cholesterol (mg/dl)LDL Cholesterol: <100 Optimal 100-129 Near optimal/above optimal 130-159 Borderline high 160-189 High =190 Very high Performed By: #### L [id number] ####[facility] [id number] [place] [address], [facility] [facility]35[address], [place] [phone]#### [id number] ####[facility] [id number] [place] BLVDBEAVER[place], [facility]31 [facility] LIPID PANELon 09-07-2016 Cholesterol 191 mg/dL Normal <=200 [facility] Comment on above: Performed By: #### L [id number] ####[facility] [id number] [place] [address], [facility] [facility] [place] [id number] [address]vd[place]aver[place], [place] [phone]#### [id number] ####[facility] [id number] [place] [address], [facility]31 [facility] Cholesterol 36 mg/dL Abnormal 40-60 [facility] Comment on above: Performed By: #### L [id number] ####[facility] [id number] [place] [address], [facility] [facility]35[address]Be[address], [place] [phone]#### [id number] ####[facility] [id number] [place] [address], [facility]31 [facility] LDL Cholesterol Normal 0-99 [facility] Comment on above: Result Comment: LDL calculation is invalid because the triglyceride level is equal to or greater than 400 mg/dl. Performed By: #### L [id number] ####[facility] [id number] [place] [address] [facility] [place] [id number] [place] vdBeAshley [place] [phone]#### [id number] ####[facility] [id number] [place] [address] [facility] LIPID PANEL Normal [facility] Comment on above: Result Comment: ATP III Classification of LDL, Total and HDL Cholesterol (mg/dL)LDL Cholesterol: <100 Optimal 100-129 Near optimal/above optimal 130-159 Borderline high 160-189 High >=190 Very highTotal Cholesterol: <200 Desirable 200-239 Borderline high >=240 HighHDL Cholesterol: <40 Low >=60 High Performed By: #### L [id number] ####[facility] [id number] [place] [address] [facility] [place] [id number] [address]vdBeaver[address], [address]#### [id number] ####[facility] [id number] [place] [address] [place] Triglyceride 413 mg/dL Abnormal 0-149 [facility] Comment on above: Performed By: #### L [id number] ####[facility] [id number] [place] [address] [facility] [place] 2931235 [address]vd[place], [place] [phone]#### [id number] ####[facility] [id number] [place] [address] [place] VLDL CHOLESTEROL 83 mg/dL Abnormal 0-40 [facility] Comment on above: Performed By: #### L [id number] ####[facility] [id number] [place] [address] [facility] [place] 2931235 [address]vd[place], [place] [phone]#### [id number] ####[facility] CLIA [id number] [place] [address], [address] MAGNESIUMon 09-07-2016 Magnesium 1.7 mg/dL Normal 1.5-2.3 [facility] Comment on above: Performed By: #### L [id number] ####[facility] [id number] [place] [address], [address]LA[facility]vdBe[address], [place] [phone]#### [id number] ####[facility] [id number] [facility], [address] MRI-HEAD WO CONTRASTon 09-07 MRI-HEAD WO CONTRAST EXAMINATION: MRI-HE AD WO CONTRAST DEMOGRAPHICS: 71 years old Male INDICATION: tia/cva History: TIA/CVA, left arm numbness and tingling. Number of Series/Images: 6. COMPARISON: Head CT dated 07 September 2016 and head MR dated 25 November 2015.TECHNIQUE: Multisequence, multiplanar MRI of the brain was performed without IV contrast. FINDINGS:MRI BRAIN: Ventricles and sulci are mild to moderate enlarged and greater than expected for age. Right posterior temporal transcortical increased T2 and FLAIR signal is identified with concordant restricted diffusion confirmed on ADC map compatible with acute infarcts.There is additional right paracentral mid to posterior frontal parietal occipital border zone increased T2 and FLAIR signal with restricted diffusion again confirmed on ADC map compatible with infarct.The deep white matter basal ganglia brainstem and cerebellum are unremarkable. The diffusion-weighted images are normal. The ADC map is noncontributory. No intra-or extra-axial collections are otherwise appreciated.The pituitary gland pineal region cranial nerves and craniocervical junction are unremarkable. Normal flow-void within the major vessels is seen.The orbits sinuses and temporal bone are remarkable. The skull base and calvarium are normal.1. Right posterior temporal temporal occipital transcortical acute infarct.2. Right parasagittal mid to posterior frontal parietal and occipital border zone infarcts.3. Mild to moderate cerebral volume loss greater than expected for age.This report was called to Dr. Dalila WANG [facility] IR MedSurg3.This dictation was created with voice recognition software. While attempts have been made to review the dictation as it is transcribed, on occasion the spoken word can be misinterpreted by the technology leading to omissions or inappropriate words, phrases or sentences.Electronically Signed by: Janice Mayorga MD, 09/07/2016 1:50 PM Normal [facility] PARTIAL THROMBOPLASTon 09-07 PARTIAL THROMBOPLASTIN TIME MECHANICAL 41.2 Seconds Abnormal 27.0-39.0 [facility] Comment on above: Performed By: #### L [id number] ####[facility] [id number] [place] [address], [address] BlvdBeavercreWhitney [place] [phone]#### [id number] ####[facility] [id number] [place] [address], [address] PROTIME-INRon 09-07-2016 INR Coag RelTime (Bld) [facility] Comment on above: Result Comment: Cond ition and INR Therapeutic Range:Deep venous thrombosis 2.0-3.0Pulmonary embolism 2.0-3.0Acute myocardial infarction 2.0-3.0Atrial fibrillation 2.0-3.0Antiphospholipid syndrome (no other risk factors) 2.0-3.0Antiphospholipid syndrome with recurrent thromboembolism 2.5-3.0Bioprosthetic (tissue) valve 2.0-3.0Mechanical prosthetic valves 2.0-3.0 or 2.5-3.5 depending on valve type and location Performed By: #### L AB320 ####[facility] [id number] [place] [address], [address] AND [facility]35[address] BlvdBeavercreekLinda [place] [phone]#### [id number] ####[facility] CLIA [id number] [place] [address] [facility] INR Coag RelTime (PPP) 1.1 {INR} Normal 0.8-1.1 [facility] Comment on above: Performed By: #### L [id number] ####[facility] CLIA [id number] [place] [address], [facility] [facility]35[address]vdBeaverc[place], [place] [address]#### [id number] ####[facility] [id number] [place] [address], [address] Prothrombin time (PT) Coag time (PPP) 11.8 s Normal 9.3-12.3 [facility] Comment on above: Performed By: #### L [id number] ####[facility] [id number] [place], [facility]31 [facility] AND [place] [id number] [address]vd[place], [place] [address]#### [id number] ####[facility] [id number] [place] [address], [address] INR Coag RelTime (Bld) Normal [facility] Comment on above: Result Comment: Cond ition and INR Therapeutic Range:Deep venous thrombosis 2.0-3.0Pulmonary embolism 2.0-3.0Acute myocardial infarction 2.0-3.0Atrial fibrillation 2.0-3.0Antiphospholipid syndrome (no other risk factors) 2.0-3.0Antiphospholipid syndrome with recurrent thromboembolism 2.5-3.0Bioprosthetic (tissue) valve 2.0-3.0Mechanical prosthetic valves 2.0-3.0 or 2.5-3.5 depending on valve type and location Performed By: #### L [id number] ####[facility] CLIA [id number] [place] [address], [address] AND [place] 2931235 [place] [address]#### [id number] ####[facility] AND [place] [id number] [facility], [address] INR Coag RelTime (PPP) 1.0 {INR} Normal 0.8-1.1 [facility] Comment on above: Performed By: #### L [id number] ####[facility] [id number] [facility], [address] AND [place] [address]#### [id number] ####[facility] [id number] [facility], [address] Prothrombin time (PT) Coag time (PPP) 11.3 s Normal 9.3-12.3 [facility] Comment on above: Performed By: #### L [id number] ####[facility] [id number] [facility], [address] AND [place] [address] [place] [address]#### [id number] ####[facility] [id number] [facility], [address] Progress Noteson 09-07-2016 Progress Notes Encounter Department : [facility] MED SURG WESTProgress Notes by Vickie Sanchez RN at 09/07/2016 2:04 PMAuthor: ANNE Aquinoervice: (none)Author Type: Registered NurseFiled: 09/07/2016 2:06 PMNote Time: 09/07/2016 2:04 PMNote Type: Progress NotesStatus: SignedEditor: Vickie Sanchez RN (Registered Nurse)Radiologist called regarding MRI report stating Multiple Right side acute stroke . MeganMackenize, DO called and she stated May be embolic, consult cardiology . Dr. Cayla gonzalez.Awaiting a return call.Vickie Sanchez Normal [facility] TROPONIN Ion 09-07-2016 Troponin I.cardiac mass conc ng/mL Normal 0.000-0.04 5 [facility] Comment on above: Performed By: #### L [id number] ####[facility] [id number] PENTNEWYORK-PRESBYTERIAN HOSPITALVDBEAVERHEN[facility], [address] AND [place] [id number] PentBrookdale University Hospital and Medical CenterBeaverPamela [place] [address]#### [id number] ####[facility] [id number] [address] Troponin I.cardiac mass conc Normal [facility] Comment on above: Result Comment: Trop onin I 0.045-0.600 is abnormal but not clinically relevant. Please correlate with other clinical findings. Troponin I >0.600 is clinically relevant in accordance with WHO criteria. Performed By: #### L [id number] ####[facility] [id number] [place] VDBEAVERHENRY [facility]SW[facility], [address] AND [place] [id number] [facility] BrunswickBe[place] [address]#### [id number] ####[facility] [id number] [facility] HOSPITALVDBEAVERHENRY [facility], [address] TSHon 09-07-2016 Thyroid stimulating hormone (TSH) 0.705 uIU/mL Normal 0.358-3.74 0 [facility] Comment on above: Performed By: #### L [id number] ####[facility] CLIA [id number] [place] BLVDBEAVERHENRY [facility]SW[facility], [address] AND [place] 2931235 [facility] [facility], [place] BlvdBeaverPamela [place] [address]#### [id number] ####[facility] [id number] [place] [address] [place] URINALYSIS MICROSCOPIC ONLYo n 09-07-2016 AMORPHOUS CRYSTALS 2+ /lpf Abnormal Negative [facility] Comment on above: Performed By: #### L [id number] ####[facility] CLIA [id number] [place] [address] [facility]35[address]vd[address], [place] [phone]#### [id number] ####[facility] [id number] [place] [address] [place] URINE MUCOUS 2+ /lpf Abnormal Negative [facility] Comment on above: Performed By: #### L [id number] ####[facility] [id number] [place] [address] [facility]35[address], [phone]#### [id number] ####[facility] [id number] [place] [address] [place] URINE WHITE BLOOD CELLS 0-3 Normal 0-3 [facility] Comment on above: Performed By: #### L [id number] ####[facility] [id number] [place] [address] [facility]35[address]vd[place], [phone]#### [id number] ####[facility] CLIA [id number] [place] [address] [place] Urine, bacteria in sediment Trace Abnormal Negative [facility] Comment on above: Performed By: #### L [id number] ####[facility] [id number] [place] [address] [facility]35[address]vd[address], [place] [phone]#### [id number] ####[facility] [id number] [place] [address] [place] Urine, epithelial cells in sediment 0-3 Normal 0-3 [facility] Comment on above: Performed By: #### L AB320 ####[facility] [id number] [place] [address] USAINDU AND [facility]35[address]vd[address], [place] [phone]#### [id number] ####[facility] [id number] [place] [address] [place] URINALYSIS W/REFLEX MICROSCO PYon 09-07-2016 BILIRUBIN, UA Negative Normal Negative [facility] Comment on above: Performed By: #### L [id number] ####[facility] [id number] [place] [address] USAINDU AND [facility]35[address], [place] [phone]#### [id number] ####[facility] [id number] [place] [address] [place] BLOOD, UA Negative Normal Negative [facility] Comment on above: Performed By: #### L AB320 ####[facility] [id number] [place] [address] USAINDU AND [facility]35[address], [place] [phone]#### [id number] ####[facility] [id number] [place] [address] [place] GLUCOSE, UA Negative Normal Negative [facility] Comment on above: Performed By: #### L AB320 ####[facility] HOSPITALWY [id number] [place] [address] USAINDU [facility]35[address], [place] [phone]#### [id number] ####[facility] [id number] [place] [address] [place] KETONES, UA Negative Normal Negative [facility] Comment on above: Performed By: #### L AB320 ####[facility] [id number] [place] [address] USAINDU AND [facility]35[address], [phone]#### [id number] ####[facility] AND [place] [id number] [place] [address] [place] LEUKOCYTES, UA Negative Normal Negative [facility] Comment on above: Performed By: #### L AB320 ####[facility] [id number] [place] [address] USAINDU [facility]35[address], [phone]#### [id number] ####[facility] [id number] [place] [address] [place] PH, UA 7.5 Normal 5.0-8.0 [facility] Comment on above: Performed By: #### L [id number] ####[facility] [id number] [place] [address] USAINDU [facility]35[address], [place] [phone]#### [id number] ####[facility] [id number] [place] [address] [place] PROTEIN, UA Negative Normal Negative [facility] Comment on above: Performed By: #### L AB320 ####[facility] [id number] [place] [address] [facility]35[address], [place] [phone]#### [id number] ####[facility] [id number] [place] [address] [place] SPECIFIC GRAVITY, UA 1.020 Normal 1.001-1 .03 5 [facility] Comment on above: Performed By: #### L AB320 ####[facility] [id number] [place] [address] [facility]35[address], [place] [phone]#### [id number] ####[facility] [id number] [place] [address] [facility] Urine, appearance Slightly Cloudy Abnormal Clear [facility] Comment on above: Performed By: #### L AB320 ####[facility] [id number] [place] [address] [facility] AND [place] [id number] [address], [phone]#### [id number] ####[facility] [id number] [place] [address] [facility] Urine, color Yellow Normal Yellow [facility] Comment on above: Performed By: #### L AB320 ####[facility] [id number] [place] [address] [facility] AND [facility]35[address], [phone]#### [id number] ####[facility] [id number] [place] [address], [facility]31 [facility] Urine, nitrite presence Negative Normal Negative [facility] Comment on above: Performed By: #### L AB320 ####[facility] [id number] PENTSOUTHEAST ARIZONA MEDICAL CENTER BLVDBEAVERCREEK, [facility]31 [facility] AND [place] [id number] PentSt. Lawrence Psychiatric CentervdBeavercreRachel [place] [address]#### [id number] ####[facility] [id number] PENTNEWYORK-PRESBYTERIAN HOSPITALVDBEAVERCREEK, [address] UROBILINOGEN, UA 0.2 EU/dL Normal 0.2-1.0 [facility] Comment on above: Performed By: #### L AB320 ####[facility] [id number] PENTNEWYORK-PRESBYTERIAN HOSPITALVDBEAVERCREEK, [address] AND [place] [address]31235 PentSt. Lawrence Psychiatric CentervdBeavercreekMonica [place] [address]#### [id number] ####[facility] [id number] PENTNEWYORK-PRESBYTERIAN HOSPITALVDBEAVERHEN[facility], [address] VAS-CAROTID DOP BILAT [id number] n 09-07-2016 VAS-CAROTID DOP BILAT [id number] A result will not be generated for this exam.VAS-CAROTID DOP BILAT [id number] for Exam: tia/cva. REASON FOR EXAM: tia/cvaDEMOGRAPHICS: 71 years old MaleComparison: 11/25/2015.Technique: Grayscale, color Doppler and spectral analysis was performed of the the cervical arterial vasculature. Stenosis is based on NASCET and radiologists in ultrasound criteria.Findings:* Right internal: Smooth fibrocalcific plaque with peak velocity 123 cm/s and ICA/CCA ratio 1.5.* Left internal: Smooth fibrocalcific plaque with peak velocity 81 cm/s and ICA/CCA ratio 0.6.* External: Patent without hemodynamically significant stenosis. * Vertebral and subclavian: Patent without hemodynamically significant stenosis. Antegrade triphasic vertebral flow bilaterally.Right and Left internal carotid arteries show IMPRESSION:Right and Left internal carotid arteries show 1-49% stenosis.-49% stenosisIMPRESSION:Right and Left internal carotid arteries show 1-49% stenosis.Electronically Signed by: Bharat Jones MD, 09/07/2016 1:25 PM [facility] XR-CHEST PA AND LATon 2016 XR-CHEST PA AND LAT EXAM: XR-CHEST PA & LATACCESSION: [id number] OF SERVICE: 09/07/2016 8:26 AMORDERING PROVIDER:JAMESON SHERIDAN REASON FOR STUDY: flank pain History: left sided arm weakness with dizzyness. Number of Series/Images: 2. PATIENT DEMOGRAPHICS: 71 years, MaleCOMPARISON: 11/25/15TECHNIQUE: Frontal and lateral views of the chest were obtained. FINDINGS:Overlying EKG leads and wires obscure portions of the chest. Cardiomediastinal silhouette appeared within normal limits. Pulmonary vasculature appears within normal limits. Lungs are well expanded and free of acute infiltrate. Pleural spaces appear clear without evidence of acute effusion. Moderate degenerative changes to the thoracic spine are seen. No acute pulmonary disease process. This dictation was created with voice recognition software. While attempts have been made to review the dictation as it is transcribed, on occasion the spoken word can be misinterpreted by the technology leading to omissions or inappropriate words, phrases or sentences.Electronically Signed by: Kay Lew DO, 09/07/2016 8:29 AM [facility] Progress Noteson 11-29-2015 Progress Notes Progress Notes by STACI De Los Santos at 11/29/2015 9:21 AMAuthor: ESTELLE Heathervice: (none)Author Type: Social WorkerFiled: 11/29/2015 9:24 AMNote Time: 11/29/2015 9:21 AMNote Type: Progress NotesStatus: SignedEditor: STACI Heath (Maintenance Shop Welder)SOCIAL WORK DISCHARGE SUMMARY NOTEName:Janice Shultz Date:11/29/2015MR#:[id number] #:R3323/J3725WVdt/Sex:70 y.o. maleAdmit Date:11/25/2015Admitting:Same er ANDRESSA Floreservices: Discharge summaryAgency: None at this time.Patient Information patient presented with cerebral vascular accidentTransportation [facility] provided [facility] paperworkDischarge Plan patient to return home with no post acute needsAdditional Narrative: Normal [facility] [facility] Discharge Summarieson 2015 Discharge Summaries Discharge Summaries by Rahul Phillips MD at 11/26/2015 3:05 PMAuthor: ANDRESSA Bachervice: Internal MedicineAuthor Type: PhysicianFiled: 11/26/2015 6:42 PMNote Time: 11/26/2015 3:05 PMNote Type: Discharge SummariesStatus: SignedEditor: Rahul Phillips MD (Physician)Name: Janice ShultzDate/Time of Admission: 11/25/2015 5:54 [facility] [place] [id number] Provider: ANNI Bachelizabeth hospital/Bed: [facility]/[id number]: 1945 Age: 70 y.o.DISCHARGE SUMMARYDate of Admission: 11/25/2015Date of Discharge: 11/26/2015[facility]: Left arm weakness, slurred speech, dizzinessConsultants: Dr. Mehta, neurologyProcedures: noneSignificant Tests during this Admission:Significant LabsRecent PuetGol56/ 19484511/25/15 9534BGZ3.07.6DILKAAAFPJ58.41 5.6HCT45.346.3CDY436130VFO3. 275.94KDYL01.934.0MCH29.129. 3RDW13.113.1GEYOVLTKLNG10 --FDSMYPEKZ68 --Recent FdtsPvr09/ 3284AJ886I8.4DK746WQ981VTK35 CREATININE1.08KMU561*CALCIUM 8.6Radiological findings:Ct-angio Head W And/or Wo Con W/post Im11/26/2015 IMPRESSION: 1. Fibrocalcific atherosclerotic plaque results in 45-50% luminal narrowing of the proximal rightinternal carotid artery. Mild atherosclerosis is noted on the left with no significant luminalnarrowing. 2. Intracranial arterial system shows no evidence of aneurysm, dissection, vascular malformation,or major branch occlusion. 3. Please see above for complete discussion. Electronically Signed by: Louis Mead D.O.,11/26/2015 6:28 AMCt-hyperacute Head Wo Con Stroke11/25/2015 IMPRESSION: 1. No evidence for acute intracranial findings. There is no evidence for hemorrhage, mass effector midline shift. No definite acute large territory infarct. Dictated by: Rhona Bhatia(Resident) Carlos Awan DO, have reviewed the images and agree with the above interpretation.Electronicall y Signed by: Carlos Ibanez DO, 11/25/2015 6:06 AMCt-angio Neck W And/or Wo Con W/post Im11/26/2015 IMPRESSION: 1. Fibrocalcific atherosclerotic plaque results in 45-50% luminal narrowing of the proximal rightinternal carotid artery. Mild atherosclerosis is noted on the left with no significant luminalnarrowing. 2. Intracranial arterial system shows no evidence of aneurysm, dissection, vascular malformation,or major branch occlusion. 3. Please see above for complete discussion. Electronically Signed by: Louis Mead D.O.,11/26/2015 6:28 AMMri-head Wo Contrast11/25/2015 IMPRESSION:IMPRESSION: NUMEROUS TINY ACUTE LACUNAR TYPE INFARCTS ARE SEEN IN THE DISTRIBUTION OF THE RIGHTMIDDLE CEREBRAL ARTERY POSTERIOR DIVISION.A SMALL OLD INFARCT IS SEEN IN THE RIGHT PARIETAL CORTEX. Electronically Signed by: Shon Cerda M.D., 11/25/2015 9:10 AMXr-chest Portable Stat11/25/2015 IMPRESSION: No acute pulmonary process. Dictated by: Rhona Bhatia (Resident) Carlos Awan DO, have reviewed the images and agree with the above interpretation. ElectronicallySigned by: Carlos Ibanez DO, 11/25/2015 6:03 AMVas-carotid Dop Bilat [id number] IMPRESSION: 1-49% stenosis bilateral internal carotid arteries. This dictation wascreated with voice recognition software. Although every effort is made to review the dictation asit is transcribed, on occasion the spoken word can be misinterpreted by the technology leading toomissions or inappropriate words, phrases or sentences. Electronically Signed by: Patel Villatoro DO,11/25/2015 11:24 AMDischarge Examination:BP 162/89 mmHg Pulse 87 Temp(Src) 97.4 ?F (36.3 ?C) Resp 18 Ht 5' 11 (1.803 m) Wt 184 lb(83.462 kg) BMI 25.67 kg/m2 SpO2 96%Alert orientedLungs: bilateral air entry +Heart:S1, S2+Abdomen soft, non-tenderExtremities no edema/cyanosis.MYSQL DATABASE ADMINISTRATOR: AAO X3, No focal deficits.Discharge Diagnoses:Acute CVAHypertensionHyperlipidemi aHistory of PA in the pastDischarge Instructions and Follow upActivity: activity as toleratedDiet: cardiac dietCall PCP/return to ER if symptoms recur.Follow up with PCP in 1 week.PCPIn 1 weekDischarge disposition:HomeCondition on discharge:StableDischarge Medications:Current Discharge Medication ListCONTINUE these medications which have CHANGEDDetailssimvastatin (ZOCOR) 10 mg tabletTake 4 tablets by mouth at bedtime.Refills: 0CONTINUE these medications which have NOT CHANGEDDetailsALPRAZolam (XANAX) 1 mg tabletTake 1 mg by mouth at bedtime as needed for Sleep.aspirin 81 mg enteric coated tabletTake 81 mg by mouth daily.metoprolol tartrate (LOPRESSOR) 25 mg tabletTake 25 mg by mouth 2 times daily.prasugrel (EFFIENT) 10 mg tabletTake by mouth daily.Hospital Course:Mr. Janice Shultz is a 70 y.o. year old male who was admitted on 11/25/2015 for weakness involvingthe left arm, slurred speech, difficulty with coordination. He was admitted to telemetry understroke pathway.CT head was nonacute, MRI revealed numerous tiny acute lacunar infarcts in the distribution of theright MCA posterior division. Old infarct seen in the right parietal cortex. He had a CTangiogram head and neck which revealed 40 to 51st and luminal narrowing of the proximal rightinternal carotid artery. Patient's symptoms improved, seen by PT/OT. He was also consulted byneurology who recommended to continue his current antiplatelet and statin medications.He is being discharged home, instructed to follow with his primary care physician, neurology forfurther workup.Total discharge time reviewing clinical diagnoses, medications, follow up and coordinatingdischarge was 37 minutesElectronically signed: Rahul Phillips MD 11/26/2015Dr. Rahul [facility]rafNem[facility], [address] [phone] [facility] Progress Noteson 11-26-2015 Progress Notes Progress Notes by Ra brando Hall OT at 11/26/2015 11:17 AMAuthor: SUNNY Stollervice: MAGDI TreatmentAuthor Type: Occupational TherapistFiled: 11/26/2015 3:01 PMNote Time: 11/26/2015 11:17 AMNote Type: Progress NotesStatus: SignedEditor: Georgia Hall OT (Occupational Therapist)Occupational Therapy TreatmentAdmit date: 11/25/2015 Today's Date: 11/26/2015Patient Name/MR#: Janice Shultz [id number] Room: [facility]/[id number] Diagnosis: CVA (cerebral vascular accident) [I63.9]Admitting Provider:Jailene Flores MD Current Medical Status: Janice Shultz is a 70 y.o. male who presents with strokelike symptoms.Patient states that he woke up this morning at 4:00 and noticed that he cannot really move his leftarm. Described as moderate weakness and difficulty with coordination. Patient reports some moderateslurred speech as well. Patient called 911 and was brought in as a stroke alert. Patient statesthat over last 2 weeks he has had intermittent mild lightheadedness he states that this has notcaused him to be nauseated and has not had any fever chills or sweats blurred vision or othersymptoms previously. He has no prior history of TIAs or CVAs. Patient denies any lightheadedness atthis time. Patient reports that his arm seems to be improving somewhat however it still seems to beweak at this time. Patient denies any chest pain shortness of breath coughing wheezing sputumproduction or any other issues. Patient has no other alleviating or aggravating factors and noother associated signs or symptoms. 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 A SMALL OLD INFARCT IS SEEN INTHE RIGHT PARIETAL CORTEX. Activity/Safety: Activity as toleratedUniversalFall riskOrthopedicWeightbearingB ackCervicalPacerSeizureConta ctAirborneDropletNeutropenic Comments:Subjective:Pt states he is willing to work with OT at this timeRN Sonny approved sessionPain Rating Score: 0/10 Pain Location: naTherapist Pain Intervention (if pt reported unacceptable level of pain): no intervention necessaryat this timeObjective:Mental StatusAlertDrowsyLethargicUn responsiveCooperativeUncoope rativeAppropriateInappropria teFollows Commands1 Step2 StepMultiStepNoneConsistentl yInconsistentlyEasily DistractedDelayedOrientation PersonPlaceTimeEventsComment s:Barriers to LearningNoneCognitionHearing VisionMotivationReadinessEas lupe DistractedJudgmentInsightAwa renessPre-MorbidMental StatusLanguage barrierNon-Guinean SpeakingCommunicationBarrier Observations/Vitals: Pt supine in bed with tele, IV in R Fa, SCDS on prior to sessionAt end of session pt seated in chair with all needs within his reach; present; lunch traypresent and pt able to manage aloneEnvironmental Safety:Phone within reach, Patient sitting up in chair, Gait belt used, Call light within reach and Alllines intactCOGNITIONWFLImpairedCo mmentsAttention SpanXAttention L-R / NeglectXPraxisXProblem SolvingXSafety/JudgementXMem oryXExecutive FunctionsXUE Range of Motion: WFLUE Strength: pt demonstrates 4+/5 strength in LUE this datePt worked on FMC activities this date; 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 strip picker small objects fromtable top with increased time and effort; pt able to manipulate objects into and out of his L palm;pt was able to open his pop with use of L handMotor Coordination: No noted changes since last session Changes noted: pts strength has improvedSensation: No noted changes since last session Changes noted:ADL'SIndMod-ISupCG/MIN ModMaxTotalCommentsFeedingXG roomingnaBathingnaUB DressingnaLB DressingMin A for tying at waistPt donned hospital pants while seated at EOB; ptrequired min A with tying at waistToiletingDenied needADL Comments:MobilityIndMod-ISup CG/MINModMaxTotalNot Addressed this ipmmkxhIjykfxcVZtz-EzvCZui-X upX pt up on chair at end of sessionSit to StandXChair Transfer XToilet transferXTub/ShowerXGait/Mob ility Comments: pt performed sup to sit bed mobility Lupe; pt completed sit to stand with S;pt walked in hallway, 550 feet with S, no deficits noted; pt returned to room and seated in chairMI; pt then completed LUE coordination exercises to address motor coordination and fine motorcoordination; handout given to pt with numerous exercises trialedBalance:SittingStatic -DLubcgrx-HZsjzangrLevdoo-VE ynamic-SPatient Summary:The patient continues to exhibit the following deficits: LUE coordination, ADL, strength, endrurancePatient/Family Education: Role of OTEducated about DxUse of Call Light for assistancePrecautionsHEP issued Home Safety Family/ PresentAdaptive Equipment TrainingMobility SafetyBody MechanicsPt unable to LearnHandout issuedComments:Assessment:In terdisciplinary Communication:Spoke w/ RN prior to sessionSpoke w/Social ServicesOT informed of any significant changes in patient status that may require adjustment of the POC orD/C recRN notifiedabout issues during treatmentCo-tx with PTRehab Dx same as evaluation.Rehab Potential:ExcellentGoodFairP oorGuardedComments:Patient/F amily GoalOngoingNot MetMetUnable to StateOT Rehab Goals (all goals not met are ongoing):LTG: pt to be I with all ADL, mobility, safelySTG: pt to complete below goals in 2 weeks:1: pt to be I with UB ADL, including snaps, buttons, zippers, etc: progressing2: pt to be I with LB ADL: progressing3: pt to be I with toileting tasks: na4: pt to be I with HEP addressing his L UE weakness and decreased coordination: progressing,handout given5: pt to be using LUE functionally, LUPE: progressing6: pt to be I and safe with all mobility and tasks within his environment: progressingDischarge Recommendation:HomeHome w/ [id number] Supervision/AssistHome Care TherapyInpt Rehab UnitSNF/ECFOP OTComments:D/C Equipment NeedsNoneShower -pp-6Xgs KitHospital BedStd WalkerFWWRollator / 4WWStd CaneQuad CaneW/C*Patient equipment needs may change pending patient?s progress and discharge disposition duringacute hospitalization.Plan: (as discussed with patient/family and agreed upon)Therapy Frequency: 7 X / weekDuration of Treatment: 2 weeksPlan to Include: ADL, Functional Transfers, Balance, Therapeutic Exercise, Therapeutic Activities,Coordination, HEP, Pt/Family Education/TrainingContinue POC developed after OT evaluationOT reassess due to:Pt functioning at/near baseline.Will discontinue skilled Acute OT at this time. Please re-order OT if pt's condition decreasesGEORGIA HALL, OTR/LTime In: 11:17 Time Out: 11:55Total Treatment Time: 38Timed Code Minutes : 38 [facility] Progress Notes Progress Notes by STACI De Los Santos at 11/26/2015 2:51 PMAuthor: ESTELLE Heathervice: (none)Author Type: Social WorkerFiled: 11/26/2015 2:54 PMNote Time: 11/26/2015 2:51 PMNote Type: Progress NotesStatus: SignedEditor: STACI Heath (Maintenance Shop Welder)Social Service Ongoing CareServices: Discharge planningAgency: None at this time.Comments: reviewed chart, processed patient information in IDT meeting. Patient to return home withno post acute needs at this time. Patient to return home to [place], [place]. Care coordination tocontinue following this patient.STACI Newell 1-20-13Iqspdbaxe plan: home with no post acute needs.Barriers: none at this time. [facility] 2D COMPLETE ECHO (COLORFLOW, DOPPLER)on 11-25-2015 2D COMPLETE ECHO (COLORFLOW,DOPPLER) [address] [address] PH: [phone] ECHOCARDIOGRAM REPORT Pt. Name: JANICE SHULTZ : 1945 70 Date: 11/25/2015/3:39:53 PM years MR# [id number] Sex: M Blood Pressure: 153/90 Ht: 71 in BSA: 2.04 Location: 3323 Wt: 184 lb Technologist: Referring Physician: [id number] MARIA TERESA DENT Indications: Abnormal ECG Study Details: Complete echocardiogram with colorflow and Doppler studies. Imagequality for this study is adequate. There is no previous echocardiogram available for comparison. Summary: 1. Normal observed left ventricular ejection fraction of 60%. 2. Mild left ventricular diastolic dysfunction. 3. Mild concentric left ventricular hypertrophy. 4. Aortic root dilatation. 5. The aortic valve is calcified with no significant stenosis. Left Ventricle: Left ventricle end diastolic dimension measures within normal limits. There is mild diastolic dysfunction with E/A wave reversal. Observed left ventricular ejection fraction is normal, at 60%. Left Atrium: The left atrium is normal in size. The left atrial A/P dimension is3.70 cm. The interatrial septum is intact with normal 2D appearance. Right Ventricle: The right ventricular size is normal. Global RV systolic function is normal. Right Atrium: The right atrium is normal in size. Aortic Valve: The aortic valve is calcified with no significant stenosis. Mitral Valve: The mitral valve is normal in appearance. There is no mitral valvestenosis. The mitral valve area by the pressure half time method is 2.16 cm??. There is trace mitral regurgitation. Tricuspid Valve: The tricuspid valve is structurally normal. No regurgitation identified by color flow imaging. Pulmonic Valve: The pulmonic valve is normal in appearance. There is no pulmonicregurgitation. There is no pulmonic stenosis. Pericardium: The pericardium is normal with no pericardial effusion. Aorta: There is dilatation of the aortic root. The aortic arch is not visualized. Venous: The inferior vena cava is normal in this study. The IVC size variation is greater than 50%. CHAMBER DIMENSIONS M-mode 2D Normal Range(Men) Normal Range(Women) LV Internal Diastolic 4.92 4.2-5.9cm 3.9-5.3cm LV Internal Systolic 2.61 Interventricular Septum(d) 1.18 0.6-1.0cm 0.6-0.9cm LV Posterior Wall(d) 1.13 0.6-1.0cm 0.6-0.9cm RV minor d, A4C 2.21 2.7-3.3cm 2.7-3.3cm Left Atrium 3.70 3.0-4.0cm 2.7-3.8cm Left Atrial Volume Index 17.2 16-34 ml/m2 16-34 ml/m2 Aortic Root 4.10 2.0-3.7cm 2.0-3.7cm Aortic Valve Opening 1.60 1.6-2.6cm 1.6-2.6cm IVC 1.2-1.7cm 1.2-1.7cm AoV Aov LVOT Vmax 1.37 m/s 1.06 m/s PGrad 7.5 mmHg MnGrad Valve Area Diameter Area(Vmax) 2.19 cm?? 1.90 cm AR P1/2 MV E Vmax 0.50 m/s DT 352 msec e' Vmax E/e' Mn Grad MVA (P1/2t) 2.16 cm?? Pressure Half Time TV TR Vmax TR Pk Grad RA Pressure 5 mmHg RVSP [id number] . Pulmonary Artery: MR PISA Radius MR Alias Velocity MR VMax MR EROA TV Inflow E max TV Mn Grad PV PV Vmax PV Pk Grad PV Mn Grad COMPARISON TO PREVIOUS EXAMINATION: Final Normal [facility] BASIC METABOLIC PANELon 04- Anion gap 6 mmol/L Abnormal 02-25 [facility] Comment on above: Performed By: #### L AB15 ####[facility] [id number] [facility] [place]US[place] [address] [facility]#### [id number] ####[facility] CLIA [id number] [place] [address] [facility] [place] [id number] [place], [place] [phone] BUN (urea nitrogen) 13 mg/dL Normal -18 [facility] Comment on above: Performed By: #### L AB15 ####[facility] [id number] [place] [address] [place]#### [id number] ####[facility] [place] [id number] [place] [address] [facility], [place] [phone] Calcium 8.6 mg/dL Normal 8.5-10.1 [facility] Comment on above: Performed By: #### L AB15 ####[facility] [id number] [place] [address] [place]#### [id number] ####[facility] [place] [id number] [place] [address] [facility], [place] [phone] Chloride 105 mmol/L Normal 98-107 [facility] Comment on above: Performed By: #### L AB15 ####[facility] [id number] [place] [address] [place]#### [id number] ####[facility] [place] [id number] [place] [address] [facility], [place] [phone] CO2 31 mmol/L Normal 21-32 [facility] Comment on above: Performed By: #### L AB15 ####[facility] [id number] [place] [address] [place]#### [id number] ####[facility] [place] [id number] [place] [address] [facility], [place] [phone] Creatinine 1.12 mg/dL Normal 0.60-1.30 [facility] Comment on above: Performed By: #### L AB15 ####[facility] CLIA [id number] [place] [address] [place]#### [id number] ####[facility] CLIA [id number] [place] [address] [facility], [phone] eGFR (black) mL/min/{1.73_m2} Normal >60 [facility] Comment on above: Result Comment: GFR is estimated using creatinine, age, gender, and race. Patient's values should be interpreted as a trend. For additional information: [email or web address] Performed By: #### L AB15 ####[facility] [id number] [place] [address] [place]#### [id number] ####[facility] [id number] [place] [address] [facility], [place] [phone] eGFR (non-black) mL/min/{1.73_m2} Normal >60 [facility] Comment on above: Result Comment: GFR is estimated using creatinine, age, gender, and race. Patient's values should be interpreted as a trend. For additional information: [email or web address] Performed By: #### L AB15 ####[facility] CLIA [id number] [place] [address] [place]#### [id number] ####[facility] CLIA [id number] [place] [address] [facility], [place] [phone] Glucose mass conc 112 mg/dL Abnormal 74-106 [facility] Comment on above: Performed By: #### L AB15 ####[facility] [id number] [place] [address] [place]#### [id number] ####[facility] [place] [id number] [place] [address] [facility] [place] [id number], [place] [phone] Potassium molar conc 3.8 mmol/L Normal 3.5-5.1 [facility] Comment on above: Performed By: #### L AB15 ####[facility] [id number] [place] [address] [place]#### [id number] ####[facility] [id number] [place] [address] [facility] [place] [id number], [place] [phone] Sodium 142 mmol/L Normal 136-145 [facility] Comment on above: Performed By: #### L AB15 ####[facility] [id number] [place] [address] [place]#### [id number] ####[facility] [id number] [place] [address] [facility] [place] [id number], [place] [phone] CBC W/DIFFon 11-25-2015 Basophils/100 WBC Auto (Bld) 1 % Normal [facility] Comment on above: Performed By: #### L AB293 ####[facility] [id number] [place], [address] BSA (Body Surface Area) 0.0 K/uL Normal 0.0-0.1 [facility] Comment on above: Performed By: #### L AB293 ####[facility] [id number] [place] [address], [place] [address] [place] Eosinophils 5 10*3/uL Normal [facility] Comment on above: Performed By: #### L AB293 ####[facility] [id number] [place], [address] Eosinophils 0.3 10*3/uL Normal 0.0-0.4 [facility] Comment on above: Performed By: #### L AB293 ####[facility] [id number] [place], [address] Erythrocyte distribution width Auto Ratio (RBC) 13.1 % Normal 11.7-15.2 [facility] Comment on above: Performed By: #### L AB293 ####[facility] [id number] [place], [address] Erythrocytes (RBC) 5.27 10*6/uL Normal 4.30-5.86 [facility] Comment on above: Performed By: #### L AB293 ####[facility] [id number] [place], [address] Hematocrit (HCT) 45.3 % Normal 39.0-51.5 [facility] Comment on above: Performed By: #### L AB293 ####[facility] [id number] [place], [address] Hemoglobin mass conc (Bld) 15.4 g/dL Normal 13.1-17.6 [facility] Comment on above: Performed By: #### L AB293 ####[facility] [id number] [place], [address] Lymphocytes 1.8 10*3/uL Normal 0.8-3.6 [facility] Comment on above: Performed By: #### L AB293 ####[facility] [id number] [place] [employer], [facility] Lymphocytes 30 10*3/uL Normal [facility] Comment on above: Performed By: #### L AB293 ####[facility] [id number] [place] [employer], [address] MCH 29.1 pg Normal 28.4-33.4 [facility] Comment on above: Performed By: #### L [id number] ####[facility] [id number] [employer], [address] MCHC mass conc (RBC) 33.9 g/dL Normal 31.1-37.0 [facility] Comment on above: Performed By: #### L [id number] ####[facility] [id number] [facility]balooHEN[facility], [address] MCV 86.0 fL Normal 85.0-99.0 [facility] Comment on above: Performed By: #### L [id number] ####[facility] [id number] [employer] PureHistoryBELeonardo Worldwide CorporationHENRY [facility], [facility]31 [facility] Monocytes 10 10*3/uL Normal [facility] Comment on above: Performed By: #### L [id number] ####[facility] [id number] [employer]CloudmachBES[employer], [address] Monocytes 0.6 10*3/uL Normal 0.3-0.9 [facility] Comment on above: Performed By: #### L [id number] ####[facility] [id number] [employer]mach[employer], [facility]31 [facility] Neutrophils 3.2 10*3/uL Normal 2.0-7.3 [facility] Comment on above: Performed By: #### L [id number] ####[facility] [id number] [place] [address] [facility] Neutrophils 54 10*3/uL Normal [facility] Comment on above: Performed By: #### L [id number] ####[facility] [id number] [place] [address] [facility] Platelets 177 10*3/uL Normal 154-393 [facility] Comment on above: Performed By: #### L [id number] ####[facility] [id number] [place], [facility]31 [facility] WBC (Leukocytes) 6.0 10*3/uL Normal 4.0-10.5 [facility] Comment on above: Performed By: #### L [id number] ####[facility] [id number] [place] [facility], [facility]31 [facility] CBC W/O DIFFon 11-25-2015 Erythrocyte distribution width Auto Ratio (RBC) 13.1 % Normal 11.7-15.2 [facility] Comment on above: Performed By: #### L [id number] ####[facility] [id number] [place] VDBEAVERHENRY [facility], [facility]31 [facility] Erythrocytes (RBC) 5.32 10*6/uL Normal 4.30-5.86 [facility] Comment on above: Performed By: #### L [id number] ####[facility] [id number] [place], [facility]31 [facility] Hematocrit (HCT) 46.0 % Normal 39.0-51.5 [facility] Comment on above: Performed By: #### L [id number] ####[facility] [id number] [place], [facility]31 [facility] Hemoglobin mass conc (Bld) 15.6 g/dL Normal 13.1-17.6 [facility] Comment on above: Performed By: #### L [id number] ####[facility] [id number] [facility]ISHA [facility], [address] MCH 29.3 pg Normal 28.4-33.4 [facility] Comment on above: Performed By: #### L [id number] ####[facility] [id number] [facility], [address] MCHC mass conc (RBC) 34.0 g/dL Normal 31.1-37.0 [facility] Comment on above: Performed By: #### L [id number] ####[facility] [id number] [address] MCV 86.4 fL Normal 85.0-99.0 [facility] Comment on above: Performed By: #### L [id number] ####[facility] [id number] [address] Platelets 176 10*3/uL Normal 154-393 [facility] Comment on above: Performed By: #### L [id number] ####[facility] [id number] [address] WBC (Leukocytes) 7.4 10*3/uL Normal 4.0-10.5 [facility] Comment on above: Performed By: #### L [id number] ####[facility] [id number] [address]-ANGIO HEAD W AND/OR WO CO N W/POST IMGon 11-25-2015 CT-ANGIO HEAD W AND/OR WO CON W/POST IMG Reason for exam: cerebral infarctHistory: 70-year-old male with acute infarctComparison: MRI brain 11/25/[address] head 11/25/2015Procedure and Materials: Helical images were obtained in the axial plane during the rapid administration of intravenous contrast. The exam was timed to best evaluate and opacify the arterial structures. The examination is reviewed at soft tissue, and lung windows. 2D and 3D reconstructions are performed of the target arterial structures. Omnipaque 350 100 mL was utilizedCT radiation dose optimization techniques (automated exposure control, and use of iterative reconstruction techniques, or adjustment of the mA and/or kV according to patient size) were used to limit patient radiation dose.Measurements and estimates of internal carotid artery stenosis are based on the NASCET criteria.Limitations: None.FINDINGS:Brain: No significant abnormalities in the arterial phase. The small acute infarcts in the right cerebrum seen on the MRI remain occult on CT.Soft Tissues: No significant soft tissue findings in the neck or upper chest. Osseous structures appear intact. Mild chronic appearing paranasal sinus disease is present. Degenerative changes in the cervical spine.Upper Lungs: No nodules or other significant lung pathology.Aortic Arch: Classic origin of the brachiocephalic vessels. No significant abnormalities in the common carotid or subclavian arteries.Right Cervical Carotid: Fibrocalcific atherosclerotic plaque results in approximately 45-50% stenosis of the proximal right internal carotid artery.Left Cervical Carotid: Mild atherosclerotic disease at the bifurcation with no evidence of aneurysm, dissection, or significant stenosis.Vertebrals: Left dominant vertebral system with no evidence of aneurysm, dissection, or significant stenosis.Intracranial Vasculature: No evidence of aneurysm, vascular malformation, or major branch occlusion. Atherosclerotic changes in the cavernous carotids with no significant luminal narrowing.1. Fibrocalcific atherosclerotic plaque results in 45-50% luminal narrowing of the proximal right internal carotid artery. Mild atherosclerosis is noted on the left with no significant luminal narrowing.2. Intracranial arterial system shows no evidence of aneurysm, dissection, vascular malformation, or major branch occlusion.3. Please see above for complete discussion.Electronically Signed by: Louis Mead D.O., 11/26/2015 6:28 AM [facility] CT-ANGIO NECK W AND/OR WO CO N W/POST IMGon 11-25-2015 CT-ANGIO NECK W AND/OR WO CON W/POST IMG Reason for exam: cerebral infarctHistory: 70-year-old male with acute infarctComparison: MRI brain 11/25/[address] head 11/25/2015Procedure and Materials: Helical images were obtained in the axial plane during the rapid administration of intravenous contrast. The exam was timed to best evaluate and opacify the arterial structures. The examination is reviewed at soft tissue, and lung windows. 2D and 3D reconstructions are performed of the target arterial structures. Omnipaque 350 100 mL was utilizedCT radiation dose optimization techniques (automated exposure control, and use of iterative reconstruction techniques, or adjustment of the mA and/or kV according to patient size) were used to limit patient radiation dose.Measurements and estimates of internal carotid artery stenosis are based on the NASCET criteria.Limitations: None.FINDINGS:Brain: No significant abnormalities in the arterial phase. The small acute infarcts in the right cerebrum seen on the MRI remain occult on CT.Soft Tissues: No significant soft tissue findings in the neck or upper chest. Osseous structures appear intact. Mild chronic appearing paranasal sinus disease is present. Degenerative changes in the cervical spine.Upper Lungs: No nodules or other significant lung pathology.Aortic Arch: Classic origin of the brachiocephalic vessels. No significant abnormalities in the common carotid or subclavian arteries.Right Cervical Carotid: Fibrocalcific atherosclerotic plaque results in approximately 45-50% stenosis of the proximal right internal carotid artery.Left Cervical Carotid: Mild atherosclerotic disease at the bifurcation with no evidence of aneurysm, dissection, or significant stenosis.Vertebrals: Left dominant vertebral system with no evidence of aneurysm, dissection, or significant stenosis.Intracranial Vasculature: No evidence of aneurysm, vascular malformation, or major branch occlusion. Atherosclerotic changes in the cavernous carotids with no significant luminal narrowing.1. Fibrocalcific atherosclerotic plaque results in 45-50% luminal narrowing of the proximal right internal carotid artery. Mild atherosclerosis is noted on the left with no significant luminal narrowing.2. Intracranial arterial system shows no evidence of aneurysm, dissection, vascular malformation, or major branch occlusion.3. Please see above for complete discussion.Electronically Signed by: Louis Mead D.O., 11/26/2015 6:28 AM [facility] CT-HYPERACUTE HEAD WO CON [facility] 11-25-2015 CT-HYPERACUTE HEAD WO CON STROKE PROCEDURE: CT-HYPERACUTE HEAD WO CON STROKEDEMOGRAPHICS: 70 years old Male INDICATION: Stroke History: Stroke. Number of Series/Images: 3. COMPARISON: No existing relevant imaging study corresponding to the same anatomical region is available.TECHNIQUE: Contiguous axial slices of the head were submitted without IV contrast. CT radiation dose optimization techniques (automated exposure control, use of iterative reconstruction techniques, or adjustment of the mA or kV according to the patients size) were used to limit patient radiation dose.FINDINGS: The ventricles are normal in size and contour without mass effect or midline shift. No intra-or extra-axial hemorrhage is identified. The osseous structures are within normal limits. The visualized paranasal sinuses and mastoid air cells are clear. The visualized orbits have a normal noncontrasted appearance. 1. No evidence for acute intracranial findings. There is no evidence for hemorrhage, mass effect or midline shift. No definite acute large territory infarct. Dictated by: Rhona Bhatia (Resident)I, Carlos Ibanez DO, have reviewed the images and agree with the above interpretation.Electronicall y Signed by: Carlos Ibanez DO, 11/25/2015 6:06 AM [facility] Consultson 11-25-2015 Consults Consults by Chau anthony MD at 11/25/2015 3:09 PMAuthor: ANDRESSA Chaconervice: NeurologyAuthor Type: PhysicianFiled: 11/25/2015 5:04 PMNote Time: 11/25/2015 3:09 PMNote Type: ConsultsStatus: SignedEditor: Chau Mehta MD (Physician) Consult Orders: 1. IP Consult to Neurology [[id number]] ordered by Jailene Folres MD at 11/25/15 1102[facility]Patient Name:[facility] : 1945Subjective:Reason for consult: Stroke like hwwfpson23 y.o. -handed male presenting to [facility] emergency department around 6 AMtoday with complaint of left arm weakness and difficulty with coordination in the arm. The patientalso reported some moderate slowing of the speech. The patient first noted the symptoms when hewoke up at 4 AM. The patient went to bed at 11 PM and that's the last time the patient was in hisnormal health. The patient also reported that for the past 2 weeks he had intermittent mildlightheadedness. The patient has no prior history of TIA or CVA.At the time of my evaluation the patient reports significant improvement in the weakness of hisleft upper extremity. The patient denies vision disturbance, sensory loss, speech disturbance,headache, nausea, gait instability, weakness of the extremities except for the left hand.Past Medical HistoryDiagnosisDate -Myocardial infarction -Hypertension :Past Surgical HistoryProcedureLateralityDa te -Hernia repairMedications:Scheduled Meds: -aspirin 81 mgOralDAILY -enoxaparin 40 mgSubcutaneousDAILY AT 0800 -prasugrel 10 mgOralDAILY -simvastatin 40 mgOralNIGHTLY AT BEDTIMEContinuous Infusions: -0.9 % sodium fygzkbxn703 mL/hr (11/25/15 1107)PRN Meds:.ALPRAZolam, hydrALAZINE, ondansetron OR ondansetronAllergiesAllergen Reactions -Lipitor [Atorvastatin]CrampsIs able to take Zocor without problems,HistorySocial History -Marital Status:MarriedSpouse Name:N/A -Number of Children:N/A -Years of Education:N/AOccupational History -Not on file.Social History Main Topics -Smoking status:Never Smoker -Smokeless tobacco:Not on file -Alcohol Use:No -Drug Use:Not on file -Sexual Activity:Not on fileOther TopicsConcern -Not on fileSocial History NarrativeFamily HistoryProblemRelationAge of Onset -HypertensionMother -StrokeMotherdied of it @ 82 -Prostate cancerFatherReview of Symptoms:10-point system review completed. All of which are negative except as mentioned above.Physical Exam:BP: 153/90 mmHg (11/24 1128)Temp: 98 ?F (36.7 ?C) (11/24 1128)Heart Rate: 79 (11/25 1127)Resp: 18 (11/24 112)SpO2: 96 % (11/24 1128)FiO2 (%): 28 % (11/24 0832)O2 Flow Rate (L/min): 2 L/min (11/24 0735)Cardiac (WDL): Within Defined Limits (11/24 06)Cardiac Rhythm: Normal sinus rhythm (11/24 628)Gen: AANDO x 4, NAD, cooperativeHEENT: NC/AT, EOMI, PERRL, mmm, no carotid bruits, neck supple, no meningeal signs;Heart: RRR, T1W5Crprh: CTABExt: no edema, no calf tenderness b/lPsych: normal mood and affectSkin: no rashes or lesions appreciatedNEUROLOGIC EXAM:Mental Status: AANDO to self, location, month and year, NAD, speech clear, language fluent,repetition and naming intact, follows commands appropriatelyCranial Nerve Exam:CN II-XII: No disc edema appreciated on fundoscopic examination, PERRL, VFF, no nystagmus, no gazeparesis, sensation V1-V3 intact b/l, muscles of facial expression symmetric; hearing intact toconversational tone, palate elevates symmetrically, shoulder elevation symmetric and tongueprotrudes midline with movement side to side.Motor Exam:Strength 5/5 right UEs/LEs, 5-/5 left UE, 5/5 left LE.Tone and bulk normalMild left pronator driftDTRs / Reflexes: 2/4 biceps, triceps, brachioradialis, patellar, and achilles b/l; flexor plantarresponses b/l.Sensation: Intact light touch/pinprick/vibration UEs/LEs b/lCoordination/Cerebellum: Tremors--none Rapidly alternating movements: Decreased with the left hand otherwise normal Vpfl-vr-Otnz: no dysmetria b/l. Jjgyee-jv-Apvq: Left upper extremity dysmetria.Gait and stance: Gait: deferredLABS:Recent Labs 11/25/15 0600 11/25/15 1126WBC 6.0 7.4HEMOGLOBIN 15.4 15.6NA 142 --K 3.8 --CL 105 --CO2 31 --BUN 13 --CREATININE 1.12 --INR 1.0 --PTT 42.8* --GETLIPIDS@ Panel:3,Ammonia:3,UA:3@,No results found for this or any previous visit.,Last TSHResults,No results found for this or any previous visit.,Last Liver Function Results:No results for input(s): ALT, AST, BILIDIR, ALKPHOS in the last 168 hours.Invalid input(s): BILITOTALIMAGING:CT?hyperacu te head without contrast: Impression: 1. No evidence for acute intracranial findings. There is no evidence for hemorrhage, mass effector midline shift. No definite acute large territory infarct.Dictated by: Rhona Bhatia (Resident)I, Carlos Ibanez DO, have reviewed the images and agree with the above interpretation.Electronicall y Signed by: Carlos Ibanez DO, 11/25/2015 6:06 AMMRI head without contrast: Impression: NUMEROUS TINY ACUTE LACUNAR TYPE INFARCTS ARE SEEN IN THEDISTRIBUTION OF THE RIGHT MIDDLE CEREBRAL ARTERY POSTERIOR DIVISION.A SMALL OLD INFARCT IS SEEN IN THE RIGHT PARIETAL CORTEX.Electronically Signed by: Shon Cerda M.D., 11/25/2015 9:10 AMVascular?carotid Doppler ultrasound bilaterally: Impression: 1-49% stenosis bilateral internalcarotid arteries.This dictation was created with voice recognition software. Although every effort is made to reviewthe dictation as it is transcribed, on occasion the spoken word can be misinterpreted by thetechnology leading to omissions or inappropriate words, phrases or sentences.Electronically Signed by: Patel Villatoro DO, 11/25/2015 11:24 AMASSESSMENT/PLAN:1.Acute ischemic infarct involving the posterior branch of the right MCA. I will order a CTangiogram of the head and neck.2.The patient is already on 2 antiplatelets agents.Thank you for allowing us to participate in the care of your patient. If there are any questionsregarding evaluation please feel free to contact us.Chau Mehta MD, 11/25/2015 [facility] Consults Consults by Valarie Mendez RD at 11/25/2015 1:48 PMAuthor: ADDY Nicoleervice: NutritionAuthor Type: Registered DietitianFiled: 11/25/2015 1:48 PMNote Time: 11/25/2015 1:48 PMNote Type: ConsultsStatus: SignedEditor: Valarie Mendez RD (Registered Dietitian) Consult Orders: 1. IP Consult To Nutrition Care [[id number]] ordered by Jelena Sommer MD at 11/25/15 0754Patient was ordered a stroke carepath, so patient was given a Heart Healthy diet instruction andprovided handout Heart Healthy Eating Nutrition Therapy from the Academy of Nutrition andDietetics' Nutrition Care Manual.The Patient received the following information:Tips to control blood pressureTips to control blood cholesterol levelsFoods recommendedFoods not recommendedHeart Healthy sample 1-day menu planIf applicable, other handout(s) provided include:Patient had good understanding of handout. Will be available as needed for any questions.Electronicallysign ed by: Valarie Mendez RD, LD 11/25/2015 1:48 PM [facility] ED Provider Noteson 11-25-19 16 ED Provider Notes ED Provider Notes by Kay Jean DO at 11/25/2015 6:03 AMAuthor: Kay Jean DOService: (none)Author Type: ED PhysicianFiled: 11/25/2015 7:03 AMNote Time: 11/25/2015 6:03 AMNote Type: ED Provider NotesStatus: SignedEditor: Kay Jean DO (ED Physician)CHIEF COMPLAINTChief ComplaintPatient presents with -Transient Ischemic AttackCornell Shultz is a 70 y.o. male who presents with strokelike symptoms. Patient states that he wokeup this morning at 4:00 and noticed that he cannot really move his left arm. Described as moderateweakness and difficulty with coordination. Patient reports some moderate slurred speech as well.Patient called 911 and was brought in as a stroke alert. Patient states that over last 2 weeks hehas had intermittent mild lightheadedness he states that this has not caused him to be nauseatedand has not had any fever chills or sweats blurred vision or other symptoms previously. He has noprior history of TIAs or CVAs. Patient denies any lightheadedness at this time. Patient reportsthat his arm seems to be improving somewhat however it still seems to be weak at this time.Patient denies any chest pain shortness of breath coughing wheezing sputum production or any otherissues. Patient has no other alleviating or aggravating factors and no other associated signs orsymptoms. Patient has a prior history of hypertension hyperlipidemia coronary disease with a priorhistory of cardiac stenting.REVIEW OF SYSTEMSConstitutional: Patient denies any fever chills or sweatsEyes: Patient denies any diplopia or blurred visionNeck: Patient denies any neck pain or stiffnessHENT: Patient denies any sore throat or nasal congestionRespiratory: Patient denies any coughing wheezing sputum productionCardiovascular: Patient denies any chest pain or palpitationsGI: Patient denies any nausea vomiting constipation diarrheaGU: Patient denies any hematuria dysuria frequencyMusculoskeletal: Patient denies any joint pain or myalgiasSkin: Patient denies any skin rashes abrasions lacerations or pruritusLymphatic: Patient denies any swollen or tender lymph nodesPAST MEDICAL HISTORYPast Medical HistoryDiagnosisDate -Myocardial infarction -HypertensionFAMILY HISTORYNo family history on file.SOCIAL HISTORYHistorySocial History -Marital Status:MarriedSpouse Name:N/A -Number of Children:N/A -Years of Education:N/ASocial History Main Topics -Smoking status:Never Smoker -Smokeless tobacco:Not on file -Alcohol Use:No -Drug Use:Not on file -Sexual Activity:Not on fileOther TopicsConcern -NoneSocial History Narrative -NoneSURGICAL HISTORYPast Surgical HistoryProcedureLateralityDa te -Hernia repairCURRENT MEDICATIONSCurrent Outpatient RxNameRouteSigDispenseRefill -ALPRAZolam (XANAX) 1 mg tabletOralTake 1 mg by mouth at bedtime as needed for Sleep. -aspirin 81 mg enteric coated tabletOralTake 81 mg by mouth daily. -metoprolol tartrate (LOPRESSOR) 25 mg tabletOralTake 25 mg by mouth 2 times daily. -prasugrel (EFFIENT) 10 mg tabletOralTake by mouth daily. -simvastatin (ZOCOR) 10 mg tabletOralTake 10 mg by mouth at bedtime.ALLERGIESNo Known AllergiesPHYSICAL EXAMVITAL SIGNS:ED Triage MfngxkGI36/14/16 0380495/96 irRvRqku95/14/16 790522.8 ?F (36.6 ?C)Heart Rate11/25/15 614219Royw67/14/16 521216JeB109/14/16 1901934 %Weight--Gee Coma Scale Score11/25/15 020160PVN (Calculated)--Constitutional : Well developed, Well nourished, No acute distress, Non-toxic appearance.HENT: Normocephalic, Atraumatic, Bilateral external ears normal, Oropharynx moist, No oralexudates, Nose normal.Eyes: PERRL, EOMI, Conjunctiva normal, No discharge.Neck: Normal range of motion, No tenderness, Supple, No stridor. No signs of meningismusLymphatic: No lymphadenopathy noted.Cardiovascular: Normal heart rate, Normal rhythm, No murmurs, No rubs, No gallops.Thorax AND Lungs: Normal breath sounds, No respiratory distress, No wheezing, No chest walltenderness.Abdomen: Bowel sounds normal, Soft, No tenderness, No masses, No pulsatile masses. No rebound orguarding negative Rovsing signSkin: Warm, Dry, No erythema, No rash.Back: No tenderness, No CVA tenderness.Extremities: Intact distal pulses, No edema, No tenderness, No cyanosis, No clubbing.Musculoskeletal: Good range of motion in all other major joints. No other tenderness to palpationor major deformities noted.Neurologic: Alert AND oriented x 3,GCS 15, NIH stroke scale ss1Jewlnymljvn: Affect normal, Judgment normal, Mood normal.EKGEKG InterpretationInterpreted by: Kay JeanTime of EKRhythm: normal sinusRate: normalAxis: normalEctopy: noneConduction: normalST Segments: no acute changeT Waves: no acute changeQ Waves: noneClinical Impression: no acute changesComparison: None available at this timeLabs ReviewedBASIC METABOLIC PANEL - Abnormal; Notable for the following:Anion Gap6 (*)7-16 mmol/VPgblmMqfrjar480 (*)74-106 mg/dLFinalAll other components within normal limitsPARTIAL THROMBOPLAST - Abnormal; Notable for the following:PTT42.8 (*)27.0-39.0 SecondsFinalAll other components within normal limitsGLUCOSE POC RESULTS - Abnormal; Notable for the following:POC Pgsjwxo791 (*)70-100 mg/dLFinalAll other components within normal limitsNarrative:Point of care test performed at bedside.PROTIME-INR - NormalNarrative:Condition and INR Therapeutic Range:Deep venous thrombosis 2.0-3.0Pulmonary embolism 2.0-3.0Acute myocardial infarction 2.0-3.0Atrial fibrillation 2.0-3.0Antiphospholipid syndrome (no other risk factors) 2.0-3.0Antiphospholipid syndrome with recurrent thromboembolism 2.5-3.0Bioprosthetic (tissue) valve 2.0-3.0Mechanical prosthetic valves 2.0-3.0 or 2.5-3.5 depending on valve type and locationTROPONIN I - NormalNarrative:Troponin I 0.045-0.600 is abnormal but not clinically relevant. Please correlate with otherclinical findings. Troponin I >0.600 is clinically relevant in accordance with WHO criteria.CBC W/DIFFURINALYSIS W/REFLEX MICROSCOPYEXTRA TUBE-SSTRADIOLOGY/PROCEDURES I have personally reviewed the images. The radiologist interpretation reveals:Last Imaging resultsResults for orders placed or performed during the hospital encounter of 11/25/15XR-Chest Portable STATNarrativeXR-CHEST PORTABLE STATDEMOGRAPHICS: 70 years old MaleHISTORY: StrokeHistory: Stroke. Number of Series/Images: 1.COMPARISON: No previous examination of the anatomical area of interest.FINDINGS: Single portable upright image of the chest was obtained. The cardiac silhouette isborderline enlarged. The trachea is midline. Prominent bronchovascular markings are notedbilaterally. The visualized osseous structures are intact.ImpressionNo acute pulmonary process.Dictated by: Rhona Bhatia (Resident)Lv, Carlos Ibanez DO, have reviewed the images and agree with the above interpretation.Electronicall y Signed by: Carlos Ibanez DO, 11/25/2015 6:03 AMCT-Hyperacute Head WO Con StrokeNarrativePROCEDURE: CT-HYPERACUTE HEAD WO CON STROKEDEMOGRAPHICS: 70 years old MaleINDICATION: Stroke History: Stroke. Number of Series/Images: 3.COMPARISON: No existing relevant imaging study corresponding to the same anatomical region isavailable.TECHNIQUE: Contiguous axial slices of the head were submitted without IV contrast. CT radiationdose optimization techniques (automated exposure control, use of iterative reconstructiontechniques, or adjustment of the mA or kV according to the patients size) were used to limitpatient radiation dose.FINDINGS: The ventricles are normal in size and contour without mass effect or midline shift. Nointra-or extra-axial hemorrhage is identified. The osseous structures are within normal limits. Thevisualized paranasal sinuses and mastoid air cells are clear. The visualized orbits have a normalnoncontrasted appearance.Impression1. No evidence for acute intracranial findings. There is no evidence for hemorrhage, mass effector midline shift. No definite acute large territory infarct.Dictated by: Rhona Bhatia (Resident)Carlos Awan DO, have reviewed the images and agree with the above interpretation.Electronicall y Signed by: Carlos Ibanez DO, 11/25/2015 6:06 AMCOURSE AND MEDICAL DECISION MAKINGPertinent Labs AND Imaging studies reviewed. (See chart for details)BP 151/83 mmHg Pulse 79 Temp(Src) 97.8 ?F (36.6 ?C) Resp 18 SpO2 100%Patient initially was made a stroke alert and immediately proceeded to the CT scanner. There is noevidence of any acute endocranial findings on the CT. Upon further questioning the patient did goto bed at 11 PM and woke up at 4:00 in the morning with his symptoms. With this timeframe patientwould not be a candidate for TPA.I have discussed the case in depth with the neurologist operations agent and they concur. Patient hasanelectrolyte abnormalities or signs of infection at this time. Patient was reexamined multipletimes here in the emergency department. Patient seems to be improving slightly. Patient will beadmitted to medical service with neurology consult and further observation and care. Patient andfamily understand and agree with this plan.The patient's scheduled substances prescription history was reviewed using the [employer] database.This patient wasn't found to have a prescription history that was concerning for drug abusediversion or aberrant behavior.FINAL [id number] .CVA (cerebral vascular accident)434.91I63.9I have personally provided 30 minutes of critical care time (excluding separately listedprocedures) through obtaining a history, examining the patient, reviewing relevant medical records,discussing care with family and/or other providers, performing multiple reassessments and directingcare.Electronically signed by: Kay Jean, 11/25/2015Micwilli Jean, DO11/25/15 0703 [facility] History and Physicalon 11-24 History and Physical HANDP by Jailene huber MD at 11/25/2015 10:54 AMAuthor: ANDRESSA Russellervice: Internal MedicineAuthor Type: PhysicianFiled: 11/25/2015 3:16 PMNote Time: 11/25/2015 10:54 AMNote Type: HANDPStatus: AddendumEditor: Jailene Flores MD (Physician)Related Notes:Original Note by Jailene Flores MD (Physician) filed at 11/25/2015 11:01 AMHistory and PhysicalASSESSMENT AND PLAN:1. TIA vs evolving stroke2. HTN3. HL4. Hx of PA in past5. Chest painPLAN:Patient came to hospital with slurred speech/dysarthria/Left facial droop/Right Facial droop/weakness of Right/Left arm /Leg / confusion.Risk factors include Age/HTN/HLD/DM/tobacco abuse/ prior arrhythmias.NC CT head did not show any evidence of acute intracranial process including hemorrhage.EKG in ER did not show any Afib/aflutter.Based on the ABCD2 score of more than equal to 3Will admit patient to telemetry.Activate Stroke pathwayPt. Loaded with aspirin in ED will continueContinue statinsWill obtain carotid duplex and MRI BrainDVT prophylaxis with SCD + S/q LovenoxFor further risk stratification, will check Fasting Lipid panel in AM, A1C, TSH.Frequent Neuro status checks will be performed.Will consult neurology.Hold antihypertensive and allow permissive HTN , will use prn HydralazineSerial troponinEchoConsider cardiology consultation if troponin trends upProphylaxis. I will place the patient on Lovenox. No indication for GI prophylaxisFull Code. Care d/w family, who is present at beside. No barriers to communication exist.Jailene Flores MD11/25/201510:54 AMCHIEF COMPLAINTChief ComplaintPatient presents with -Transient Ischemic AttackHPIHistory obtained from patient and medical recordJanice Shultz is a 70 y.o. male with a PMH history as below who presented to the ER with c/oinability to move his LUE when he woke up at 4:00 AM. He tried to grab his glasses and dentures andhe couldn't do it and it fell. He called his daughter. His speech was garbled,slurry. Denies anySeizure activity or FLORES or blurred vison with it or any difficulty in walking.He did had some Chest pain , tightness type in Substernal region and it lasted for 5-10 minutes ,not associated with SOB, diaphoresis, dizziness or vomitting or diarrhea.For last 2 week he has had intermittent Lightheadedness.REVIEW OF SYSTEMSA 07/26 system review was performed. Pertinent positives are outlined in the HPI.Other negatives include: patient denies dysuria or hematuria, fevers or chills, nausea or vomiting.No known sick contacts. No new weakness in upper or lower extremities; No change to bowel orbladder habits. No change to vision or hearing.Review of systems otherwise negative.PAST MEDICAL HISTORYPast Medical HistoryDiagnosisDate -Myocardial infarction -HypertensionFAMILY HISTORYFamily HistoryProblemRelationAge of Onset -HypertensionMother -StrokeMotherdied of it @ 82 -Prostate cancerFatherSOCIAL HISTORYHistorySocial History -Marital Status:MarriedSpouse Name:N/A -Number of Children:N/A -Years of Education:N/ASocial History Main Topics -Smoking status:Never Smoker -Smokeless tobacco:Not on file -Alcohol Use:No -Drug Use:Not on file -Sexual Activity:Not on fileOther TopicsConcern -NoneSocial History NarrativeSURGICAL HISTORYPast Surgical HistoryProcedureLateralityDa te -Hernia repairCURRENT MEDICATIONSOutpatient Prescriptions Marked as Taking for the 11/25/15 encounter (Hospital Encounter)MedicationSigDispe nseRefill -ALPRAZolam (XANAX) 1 mg tabletTake 1 mg by mouth at bedtime as needed for Sleep. -aspirin 81 mg enteric coated tabletTake 81 mg by mouth daily. -metoprolol tartrate (LOPRESSOR) 25 mg tabletTake 25 mg by mouth 2 times daily. -prasugrel (EFFIENT) 10 mg tabletTake by mouth daily. -simvastatin (ZOCOR) 10 mg tabletTake 10 mg by mouth at bedtime.ALLERGIESNo Known AllergiesPHYSICAL EXAMVITAL SIGNS:ED Triage VhezewRE16/14/16 1989621/96 niDhLgbq25/14/16 293353.8 ?F (36.6 ?C)Heart Rate11/25/15 231106Tvkq95/14/16 884159AsW325/14/16 0971813 %Dvvwnf65/14/16 9930091 lb (83.462 kg)[place] Coma Scale Score11/25/15 078207KMT (Calculated)11/25/15 944984.7Gen: NAD, looks appropriate for ageEye: No Discharge,ESTHER, EOMI, No Pallor, No Icterus, No Lid Lag, No NystagmusNose: Midline, No Rhinorrhea ,No Turbinate HypertrophyOropharynx: Moist Mucus membrane, normal dentition, no pharyngeal erythemaEars: B/L Symmetrical, normal hearing to finger tapping, no dischargeNeck: Supple, No JVD, No Thyromegaly,No Tender mass, midline tracheaCVS: S1S2 RRR, No murmur, rub or gallopResp: Clear to auscultation, No wheezing, No Crackles. Normal Resp effortAbdo: BS+, soft nontender, Non Distended, No hepatosplenomegaly, No Guarding,No rigidity, norebound, no CVA tendernessNeuro: AOX3, nonfocal sensory call. Lt. UE weakness 4/5, Weak land leasing examiner,Cranial Nerve II-XII grosslyintact and symmetricalPsychs: Appropriate mood and affect, Good Insight and judgementExtrem: No P. Edema, No Cyanosis, ROM normalSkin: Warm, Dry ,no rash, no subcutaneous nodule palpatedEKGI have personally reviewed / read this ECG and shows NSr @ 78/min with Q wave in III, AVF and TWIin III and TWf in aVF, no old to copare withLABS/RADIOLOGY/PROCEDURE SLabs ReviewedBASIC METABOLIC PANEL - Abnormal; Notable for the following:Anion Gap6 (*)7-16 mmol/LMxayiNcfeuqg308 (*)74-106 mg/dLFinalAll other components within normal limitsPARTIAL THROMBOPLAST - Abnormal; Notable for the following:PTT42.8 (*)27.0-39.0 SecondsFinalAll other components within normal limitsGLUCOSE POC RESULTS - Abnormal; Notable for the following:POC Xpymipi799 (*)70-100 mg/dLFinalAll other components within normal limitsNarrative:Point of care test performed at bedside.PROTIME-INR - NormalNarrative:Condition and INR Therapeutic Range:Deep venous thrombosis 2.0-3.0Pulmonary embolism 2.0-3.0Acute myocardial infarction 2.0-3.0Atrial fibrillation 2.0-3.0Antiphospholipid syndrome (no other risk factors) 2.0-3.0Antiphospholipid syndrome with recurrent thromboembolism 2.5-3.0Bioprosthetic (tissue) valve 2.0-3.0Mechanical prosthetic valves 2.0-3.0 or 2.5-3.5 depending on valve type and locationTROPONIN I - NormalNarrative:Troponin I 0.045-0.600 is abnormal but not clinically relevant. Please correlate with otherclinical findings. Troponin I >0.600 is clinically relevant in accordance with WHO criteria.CBC W/DIFFMRI-HEAD WO CONTRASTFinal Result IMPRESSION: NUMEROUS TINY ACUTE LACUNAR TYPE INFARCTS ARE SEEN IN THE DISTRIBUTION OF THE RIGHTMIDDLE CEREBRAL ARTERY POSTERIOR DIVISION.A SMALL OLD INFARCT IS SEEN IN THE RIGHT PARIETAL CORTEX.Electronically Signed by: Shon Cerda M.D., 11/25/2015 9:10 AMCT-Hyperacute Head WO Con StrokeFinal Result1. No evidence for acute intracranial findings. There is no evidence for hemorrhage, mass effector midline shift. No definite acute large territory infarct.Dictated by: Rhona Bhatia (Resident)Carlos Awan DO, have reviewed the images and agree with the above interpretation.Electronicall y Signed by: Carlos Ibanez DO, 11/25/2015 6:06 AMXR-Chest Portable STATFinal ResultNo acute pulmonary process.Dictated by: Rhona Bhatia (Resident)Lv, Carlos Ibanez DO, have reviewed the images and agree with the above interpretation.Electronicall y Signed by: Carlos Ibanez DO, 11/25/2015 6:03 AMVAS-CAROTID DOP BILAT 50083 (Results Pending)I have personally reviewed all imaging and agree with the read(s) as outlined above.Jailene Flores MD11/25/2015 @ 10:54 AM Normal [facility] MRI-HEAD WO CONTRASTon 11-24 MRI-HEAD WO CONTRAST MRI BRAIN NO CONTRASTHISTORY:CVAHistory: r/o cva. Number of Series/Images: 5. COMPARISON: Earlier CAT scanTECHNICAL FACTORS: Standard institutional protocol was followed. Note that no sagittal T1 series was obtained.FINDINGS:There is evidence of flow in the major intracranial arteries.The ventricles are normal in size and there is no midline shift or extra-axial fluid collection. There is some hyper signal in the cortical region of the right parieto-occipital lobe with some small scattered hyperintensities in much of the right cerebral white matter. Numerous areas of focally restricted diffusion are noted in the right frontal, temporal, and parietal lobe. Some involvement of the right occipital lobe is also noted. Small area of encephalomalacia is present in the right parietal cortex.Some mucosal thickening is seen in the sphenoid sinuses bilaterally. IMPRESSIIMPRESSION: IMPRESSION: NUMEROUS TINY ACUTE LACUNAR TYPE INFARCTS ARE SEEN IN THE DISTRIBUTION OF THE RIGHT MIDDLE CEREBRAL ARTERY POSTERIOR DIVISION.NIMPRESSION: IMPRESSION: NUMEROUS TINY ACUTE LACUNAR TYPE INFARCTS ARE SEEN IN THE DISTRIBUTION OF THE RIGHT MIDDLE CEREBRAL ARTERY POSTERIOR DIVISION. NUMERIMPRESSION: IMPRESSION: NUMEROUS TINY ACUTE LACUNAR TYPE INFARCTS ARE SEEN IN THE DISTRIBUTION OF THE RIGHT MIDDLE CEREBRAL ARTERY POSTERIOR DIVISION.US TINY ACUTE LACUNAR TYPE INFARCTS ARE SEEN IN THE DISTRIIMPRESSION: IMPRESSION: NUMEROUS TINY ACUTE LACUNAR TYPE INFARCTS ARE SEEN IN THE DISTRIBUTION OF THE RIGHT MIDDLE CEREBRAL ARTERY POSTERIOR DIVISION.UTIIMPRESSION: IMPRESSION: NUMEROUS TINY ACUTE LACUNAR TYPE INFARCTS ARE SEEN IN THE DISTRIBUTION OF THE RIGHT MIDDLE CEREBRAL ARTERY POSTERIOR DIVISION.N IMPRESSION: IMPRESSION: NUMEROUS TINY ACUTE LACUNAR TYPE INFARCTS ARE SEEN IN THE DISTRIBUTION OF THE RIGHT MIDDLE CEREBRAL ARTERY POSTERIOR DIVISION.F THE RIGHT MIDDLE CEREIMPRESSION: IMPRESSION: NUMEROUS TINY ACUTE LACUNAR TYPE INFARCTS ARE SEEN IN THE DISTRIBUTION OF THE RIGHT MIDDLE CEREBRAL ARTERY POSTERIOR DIVISION.RAL ARTERY PIMPRESSION: IMPRESSION: NUMEROUS TINY ACUTE LACUNAR TYPE INFARCTS ARE SEEN IN THE DISTRIBUTION OF THE RIGHT MIDDLE CEREBRAL ARTERY POSTERIOR DIVISION.STERIIMPRESSION: IMPRESSION: NUMEROUS TINY ACUTE LACUNAR TYPE INFARCTS ARE SEEN IN THE DISTRIBUTION OF THE RIGHT MIDDLE CEREBRAL ARTERY POSTERIOR DIVISION.R DIVISIIMPRESSION: IMPRESSION: NUMEROUS TINY ACUTE LACUNAR TYPE INFARCTS ARE SEEN IN THE DISTRIBUTION OF THE RIGHT MIDDLE CEREBRAL ARTERY POSTERIOR DIVISION.NIMPRESSION: IMPRESSION: NUMEROUS TINY ACUTE LACUNAR TYPE INFARCTS ARE SEEN IN THE DISTRIBUTION OF THE RIGHT MIDDLE CEREBRAL ARTERY POSTERIOR DIVISION.A SMALL OLD INFARCT IS SEEN IN THE RIGHT PARIETAL CORTEX.Electronically Signed by: Shon Cerda M.D., 11/25/2015 9:10 AM Normal [facility] PARTIAL THROMBOPLASTon 11-24 PARTIAL THROMBOPLASTIN TIME MECHANICAL 42.8 Seconds Abnormal 27.0-39.0 [facility] Comment on above: Performed By: #### L [id number] ####[facility] CLIA [id number] [place] [address] [facility] [place], [place] [phone]#### [id number] ####[facility] [id number] [place] [address] [facility] PROTIME-INRon 11-25-2015 INR Coag RelTime (PPP) 1.0 {INR} Normal 0.9-1.2 [facility] Comment on above: Performed By: #### L AB320 ####[facility] [id number] [address], [facility] [facility], [phone]#### [id number] ####[facility] [id number] [address], [address] Prothrombin time (PT) Coag time (PPP) 11.1 s Normal 9.3-12.3 [facility] Comment on above: Performed By: #### L AB320 ####[facility] [id number] [address], [facility] [facility], [phone]#### [id number] ####[facility] [id number] [address], [facility]31 [facility] INR Coag RelTime (Bld) Normal [facility] Comment on above: Result Comment: Cond ition and INR Therapeutic Range:Deep venous thrombosis 2.0-3.0Pulmonary embolism 2.0-3.0Acute myocardial infarction 2.0-3.0Atrial fibrillation 2.0-3.0Antiphospholipid syndrome (no other risk factors) 2.0-3.0Antiphospholipid syndrome with recurrent thromboembolism 2.5-3.0Bioprosthetic (tissue) valve 2.0-3.0Mechanical prosthetic valves 2.0-3.0 or 2.5-3.5 depending on valve type and location Performed By: #### L AB320 ####[facility] [id number] [place] [address] [facility] [place], [place] [phone]#### [id number] ####[facility] [id number] [place] [address] [facility] Progress Noteson 11-25-2015 Progress Notes Progress Notes by JASPER Torrez at 11/25/2015 4:23 PMAuthor: JASPER DoService: TOP KNITTER EvaluationAuthor Type: Speech and LanguagePathologistFiled: 11/25/2015 4:38 PMNote Time: 11/25/2015 4:23 PMNote Type: Progress NotesStatus: AddendumEditor: JASPER Do (Speech and Language Pathologist)Related Notes:Original Note by JASPER Do (Speech and Language Pathologist) filedat 11/25/2015 4:37 PMRehab MedicineSpeech Therapy EvaluationAdmit date: 11/25/2015 Today's Date: 11/25/2015Patient Name/MR#: Janice Shultz [id number]:5' 11 (1.803 m) Weight: 184 lb (83.462 kg)Current Room: [id number] Diagnosis: CVA (cerebral vascular accident) [I63.9]Admitting Provider:NARCISO Russellatient Status: InpatientJanice Shultz has a past medical history of Myocardial infarction and Hypertension. has pastsurgical history that includes hernia repair. Current Medical Status: Janice Shultz is a 70 y.o. male who presents with strokelike symptoms.Patient states that he woke up this morning at 4:00 and noticed that he cannot really move his leftarm. Described as moderate weakness and difficulty with coordination. Patient reports some moderateslurred speech as well. Patient called 911 and was brought in as a stroke alert. Patient statesthat over last 2 weeks he has had intermittent mild lightheadedness he states that this has notcaused him to be nauseated and has not had any fever chills or sweats blurred vision or othersymptoms previously. He has no prior history of TIAs or CVAs. Patient denies any lightheadedness atthis time. Patient reports that his arm seems to be improving somewhat however it still seems to beweak at this time. Patient denies any chest pain shortness of breath coughing wheezing sputumproduction or any other issues. Patient has no other alleviating or aggravating factors and noother associated signs or symptoms. 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 No evidence for acute intracranial findings. There is no evidence for hemorrhage, mass effect ormidline shift. No definite acute large territory infarct.XR Chest 11/25/15:IMPRESSION:No acute pulmonary process.Subjective:Pt states My speech was slurred at first , my daughter noticed it , and it's better now .Pain Assessment: 0/10 Pain Location: n/aTherapist Pain Intervention: no intervention necessary at this timePatient lives: Alone SpouseECF/SNF Assisted Living Ind Living facility Unable to DeterminePremorbid Communication:WNL Impaired Unable to DetermineObjective: skilled speech/language and cognitive-linguistic assessmentMental Status: Alert Drowsy Lethargic Unresponsive Cooperative Uncooperative Appropriate InappropriateFollows Commands None 1 Step 2 Step MultiStep Consistent Inconsistently Delayed Easily Distracted Functional for Directions/ activitiesOrientation Person Place Time, incorrect date (by one day) EventsBarriers to Learning None Cognition Hearing Vision Communication Deficit Language barrier Judgment/Insight Awareness Pre-Morbid Mental Status Motivation/Readiness Easily Distracted Other:O2 Use:Room AirNasal CanulaLiters:MaskLiters:Trac hType/Size-Cuff status:VentTotal days intubated:Date Extubated:Physical Status:WFL Decreased Endurance Decreased Head Control R?side Weakness L-side Weakness Right Hand Dominant Left Hand DominantComments: For parameters of this assessment. Pt was able shift position in bed, move left/rightarms during direction activities.Results from Testing:Voice:WFL Hoarse Breathy Strained Aphonic Decreased loudness Nasal: Other:Oral Motor Exam:WNLImpairments observed during evaluation written belowLabialLingualVelarFacia lOverall symmetry observed at restMandibularDentitionUpper and lowerMemory: WFL; demonstrated immediate short term memory recall of 3/3 stimulus words, and delayedrecall of 10 minutes of 2/3 stimulus words (3/3 with one cue). Demonstrated long-term memory recallin 4/4 trials.FCM Memory Level 7: The individual is successful and independent in recalling or using externalmemory aids/memory strategies for complex information and planning future events in all vocational,avocational, and social activities. Score Indications:FCM level 7 (CH) = 0% impaired, limited or restrictedFCM level 6 (CI) = 1 to <20% impaired, limited or restrictedFCM level 5 (CJ) = 20% to <40% impaired, limited or restrictedFCM level 4 (CK) = 40% to <60% impaired, limited or restrictedFCM level 3 (CL) = 60% to <80% impaired, limited or restrictedFCM level 2 (CM) = 80% to <100% impaired, limited or restrictedFCM level 1 (CN) = 100% impaired, limited or restrictedArticulation: WFL; good intelligibilityFCM Motor Speech Level 7: The individual's ability to successfully and independently participatein vocational, avocational, or social activities is not limited by speech production. Independentfunctioning may occasionally include the use of compensatory techniques. Score Indications:FCM level 7 (CH) = 0% impaired, limited or restrictedFCM level 6 (CI) = 1 to <20% impaired, limited or restrictedFCM level 5 (CJ) = 20% to <40% impaired, limited or restrictedFCM level 4 (CK) = 40% to <60% impaired, limited or restrictedFCM level 3 (CL) = 60% to <80% impaired, limited or restrictedFCM level 2 (CM) = 80% to <100% impaired, limited or restrictedFCM level 1 (CN) = 100% impaired, limited or restrictedAuditory comprehension: WFL; demonstrated comprehension of 6/6 basic yes/no questions, 4/4 complexyes/no questions, and following simple and complex commands in 5/5 trials. Demonstratedcomprehension of short oral reading passage in 4/4 trials.FCM Spoken Language Comprehension Level 7: The individual's ability to independently participatein vocational, avocational, and social activities are not limited by spoken language comprehension. When difficulty with comprehension occurs, the individual consistently use a compensatorystrategy. Score Indications:FCM level 7 (CH) = 0% impaired, limited or restrictedFCM level 6 (CI) = 1 to <20% impaired, limited or restrictedFCM level 5 (CJ) = 20% to <40% impaired, limited or restrictedFCM level 4 (CK) = 40% to <60% impaired, limited or restrictedFCM level 3 (CL) = 60% to <80% impaired, limited or restrictedFCM level 2 (CM) = 80% to <100% impaired, limited or restrictedFCM level 1 (CN) = 100% impaired, limited or restrictedVerbal expression: WFL; completed phrase/sentences in 4/4 trials, days of the week 02/16, countingto ten 05/22, and months of the year 07/24. Responsive naming 4/4 trials, and divergent naming 11items within one minute given.FCM Spoken Language Expression Level 7: The individual's ability to successfully and independentlyparticipate in vocational, avocational, and social activities is not limited by spoken languageskills. Independent functioning may occasionally include use of self-cueing. Score Indications:FCM level 7 (CH) = 0% impaired, limited or restrictedFCM level 6 (CI) = 1 to <20% impaired, limited or restrictedFCM level 5 (CJ) = 20% to <40% impaired, limited or restrictedFCM level 4 (CK) = 40% to <60% impaired, limited or restrictedFCM level 3 (CL) = 60% to <80% impaired, limited or restrictedFCM level 2 (CM) = 80% to <100% impaired, limited or restrictedFCM level 1 (CN) = 100% impaired, limited or restrictedPragmatics: WFL; pt appropriately interacted with this TOP KNITTER, made eye contact, appeared tounderstand body gestures and facial expressions. Pt did not interrupt and was able to take multipleconversational turns and stay on topic.Reading Comprehension: WFL; assessed at the single paragraph level. Pt able to retell informationalparagraph with multiple small details, main idea, and specific phrasing/words stated.FCM Reading Level 7: The individual's ability to successfully and independently participate invocational, avocational, and social activities is not limited by reading skills. Independentfunctioning may occasionally include use of compensatory strategies. Score Indications:FCM level 7 (CH) = 0% impaired, limited or restrictedFCM level 6 (CI) = 1 to <20% impaired, limited or restrictedFCM level 5 (CJ) = 20% to <40% impaired, limited or restrictedFCM level 4 (CK) = 40% to <60% impaired, limited or restrictedFCM level 3 (CL) = 60% to <80% impaired, limited or restrictedFCM level 2 (CM) = 80% to <100% impaired, limited or restrictedFCM level 1 (CN) = 100% impaired, limited or restrictedWritten expression: Not formally assessed this date.Cognition: WFL; demonstrated appropriate short and [facility] memory recall on all tasksadministered. Demonstrated simple and complex problem solving in 5/5 trials. Demonstratedappropriate reasoning in 3/3 trials, abstract reasoning 3/3 trials, and categorization in 4/4trials.Assessment summary/severity: Patient presents with functional expressive/receptive andcognitive-linguistic skills upon assessment this date. Patient oriented appropriately, able to makewants and needs known. Attention, simple and moderately complex problem solving, immediate and nursing home recall appropriate on all tasks completed this date. Pt initially presented with slurredspeech at the onset of his current symptoms, though stated it has resolved. Pt with goodintelligibility at this time, no deficits observed or acknowledged. Patient denies anyspeech/language/cognitive changes this hospital stay. No further speech/language orcognitive-linguistic therapy warranted at this time. Please re-consult if any changes should occur.Environmental Safety:Family member presentRehab Dx: Evaluation onlyRehab Potential: Good Fair Poor Unable to determine at this timePatient Goal: Pt would like to feel better and go home.Therapy Goals: Evaluation only.Patient/Family Education:Role of SLPReviewed andagreed upon POCPrecautionsHEPFamily presentUnable to learn at this timeOther:Rehab team and patient working towards planned discharge:HomeHome w/ [id number] Supervision/AssistHome Care TherapyInpt Rehab UnitSNF/ECFOP SLPPlan: (as discussed with patient/family and agreed upon)The [facility]NITTER Rehab Plan will consist of, but not limited to the following:AphasiaCog/Linguis ticCommunication/Language TherapyFacial e-stimVideostrobeDysarthriaA praxiaVoice D/C skilled TOP KNITTER services as the patient is at pre-morbid baselineThank you for allowing me to participate in the care of this patient.Carrie Macias MA CCC-SLPTime In: 1603 Time Out: 1622Total Treatment Time: 19 minutes [facility] Progress Notes Progress Notes by JASPRE Torrez at 11/25/2015 3:58 PMAuthor: Liliya Doe: (none)Author Type: Speech and Language PathologistFiled: 11/25/2015 4:00 PMNote Time: 11/25/2015 3:58 PMNote Type: Progress NotesStatus: SignedEditor: JASPER Do (Speech and Language Pathologist)[facility] Medicine and RehabilitationAdmit date: 11/25/2015 Today's Date: 11/25/2015Patient Name/MR#: Janice Shultz [id number] was attempted for at 1544 for an initial speech evaluation.Therapy was not completed secondary to pt currently with personnel and payroll technician in room.Will reattempt as appropriate.Thank you for involving me in the care of this patient.Carrie Macias MA CCC-TOP KNITTER [facility] Progress Notes Progress Notes by JASPER Naranjo ra at 11/25/2015 10:23 AMAuthor: Carito Rebolledo: (none)Author Type: Speech and Language PathologistFiled: 11/25/2015 11:32 AMNote Time: 11/25/2015 10:23 AMNote Type: Progress NotesStatus: SignedEditor: JASPER Rebolledo (Speech and Language Pathologist)[facility] Medicine and RehabilitationAdmit date: 11/25/2015 Today's Date: 11/25/2015Patient Name/MR#: Janice Shultz [id number] Speech Evaluation Attempt:Speech -Date Initial Eval Attempted: 11/25/15peech -Time Initial Eval Attempted: 1023Speech -Reason Eval Not Completed: Patient Unavailable, Other (comment)Comments: Patient working with PT/OT.Speech evaluation will be reattempted as appropriate.Thank you for involving me in the care of this patient.Maria C Peck MA, CCC-TOP KNITTER [facility] Progress Notes Progress Notes by STACI Nichole at 11/25/2015 10:16 AMAuthor: ESTELLE Matamoroservice: (none)Author Type: Social WorkerFiled: 11/25/2015 10:22 AMNote Time: 11/25/2015 10:16 AMNote Type: Progress NotesStatus: SignedEditor: STACI Matamoros (Maintenance Shop Welder)SOCIAL WORK INITIAL ASSESSMENTName:Janice Shultz Date:11/25/2015MR#:[id number] B:[id number] #:R3323/[id number]/Sex:70 y.o. maleAdmit Date:11/25/2015Admitting:Same er ANDRESSA Floreservices:Discharge planningAgency:noneReferral InformationReferral Reason: Discharge PlanningPatient InformationPrimary Caregiver: SelfIndividual Present with Patient: daughter/grandsonSupport Systems: Spouse/Significant Other, Family MembersResidency/ADL'SLiving Arrangements: Spouse/Significant OtherType of Residence: Private ResidenceLevel of Mobility and Assistance: IndependentInitial Discharge PlanDischarge Plan: HomeComments: Reviewed the patient's medical records. Discussed patient in IDT team meeting this AM.The patient is here in the area visiting his daughter and grandchildren. He usually resides [place], [place] with his and is fully independent. Discussed with patient services available bydischarge planning. The patient denied any need for services from discharge planning. Social workto continue to follow. CLARA Matamoros, STACI [facility] REPEAT TROPONIN 120 MINUTES FROM FIRST DRAWon 11-25-2015 Troponin I.cardiac mass conc ng/mL Normal 0.000-0.[address] [place] [address] Comment on above: Performed By: #### L [id number] ####[facility] CLIA [id number] [place] [address] [place] Troponin I.cardiac mass conc Normal [facility] Comment on above: Result Comment: Trop onin I 0.045-0.600 is abnormal but not clinically relevant. Please correlate with other clinical findings. Troponin I >0.600 is clinically relevant in accordance with WHO criteria. Performed By: #### L [id number] ####[facility] [id number] [place] [address] [place] TROPONIN Ion 11-25-2015 Troponin I.cardiac mass conc ng/mL Normal 0.000-0.[address] [place] [address] Comment on above: Performed By: #### L [id number] ####[facility] [id number] [place] [address] [facility] [place] [phone] Troponin I.cardiac mass conc Normal [facility] Comment on above: Result Comment: Trop onin I 0.045-0.600 is abnormal but not clinically relevant. Please correlate with other clinical findings. Troponin I >0.600 is clinically relevant in accordance with WHO criteria. Performed By: #### L [id number] ####[facility] [id number] [place] [address] [facility], [phone] Performed By: #### L [id number] ####[facility] CLIA [id number] [place] [address] [place]#### [id number] ####[facility] [id number] [place] [address] [phone] Troponin I.cardiac mass conc ng/mL Normal 0.000-0.04 5 [facility] Comment on above: Performed By: #### L AB15 ####[facility] [id number] [place] [address] [place]#### [id number] ####[facility] [id number] [address], [facility]31 USAINDU AND [place] [phone], [phone] URINALYSIS W/REFLEX MICROSCO PYon 11-25-2015 BILIRUBIN, UA Negative Normal Negative [facility] Comment on above: Performed By: #### L [id number] ####[facility] [id number] [place] [address] [place] BLOOD, UA Negative Normal Negative [facility] Comment on above: Performed By: #### L [id number] ####[facility] [id number] [place] [address] [place] GLUCOSE, UA Negative Normal Negative [facility] Comment on above: Performed By: #### L [id number] ####[facility] [id number] [place] [address] [place] KETONES, UA Negative Normal Negative [facility] Comment on above: Performed By: #### L [id number] ####[facility] [id number] [place] [address] [place] LEUKOCYTES, UA Negative Normal Negative [facility] Comment on above: Performed By: #### L [id number] ####[facility] [id number] [place] [address] [place] PH, UA 6.5 Normal 5.0-8.0 [facility] Comment on above: Performed By: #### L [id number] ####[facility] [id number] [place] [address] [place] PROTEIN, UA Negative Normal Negative [facility] Comment on above: Performed By: #### L [id number] ####[facility] CLIA [id number] [place] [address] [place] SPECIFIC GRAVITY, UA 1.025 Normal 1.001-1 .03 5 [facility] Comment on above: Performed By: #### L [id number] ####[facility] [id number] [place] [address] [place] Urine, appearance Clear Normal Clear [facility] Comment on above: Performed By: #### L [id number] ####[facility] [id number] [place] [address] [place] Urine, color Yellow Normal Yellow [facility] Comment on above: Performed By: #### L [id number] ####[facility] [id number] [place] [address] [place] Urine, nitrite presence Negative Normal Negative [facility] Comment on above: Performed By: #### L [id number] ####[facility] [id number] [place] [address] [place] UROBILINOGEN, UA 0.2 EU/dL Normal 0.2-1.0 [facility] Comment on above: Performed By: #### L [id number] ####[facility] [id number] [place] [address] [place] VAS-CAROTID DOP BILAT 08970v n 11-25-2015 VAS-CAROTID DOP BILAT 25910 A result will not be generated for this exam.Bilateral carotid ultrasoundDEMOGRAPHICS: 70 years year old MaleHISTORY: CVA Reason for Exam: CVA. COMPARISON: NoneTECHNIQUE: Real-time ultrasound and pulsed Doppler interrogation of the carotid arteries was performed with multiple selected static images submitted for review.FINDINGS:Right carotid: The grayscale images demonstrate irregular fibrocalcific plaquing. Pulsed Doppler interrogation reveals peak systolic velocity of 109 cm/s. The peak systolic velocity ratio is 1.1. Left carotid: The grayscale images demonstrate smooth fibrocalcific plaquing. Pulsed Doppler interrogation reveals peak systolic velocity of 86 cm/s. The peak systolic velocity ratio is 1.0. Antegrade flow is present within both vertebral arteries. Multiphasic flow is present within both subclavian arteries.1-49% stenosis bilateral internal carotid arteries.This dictation was created with voice recognition software. Although every effort is made to review the dictation as it is transcribed, on occasion the spoken word can be misinterpreted by the technology leading to omissions or inappropriate words, phrases or sentences.Electronically Signed by: Patel Villatoro DO, 11/25/2015 11:24 AM [facility] XR-CHEST PORTABLE Kiana XR-CHEST PORTABLE STAT XR-CHEST PORTABLE STATDEMOGRAPHICS: 70 years old MaleHISTORY: StrokeHistory: Stroke. Number of Series/Images: 1. COMPARISON: No previous examination of the anatomical area of interest.FINDINGS: Single portable upright image of the chest was obtained. The cardiac silhouette is borderline enlarged. The trachea is midline. Prominent bronchovascular markings are noted bilaterally. The visualized osseous structures are intact.No acute pulmonary process.Dictated by: Rhona Bhatia (Resident)I, Carlos Ibanez DO, have reviewed the images and agree with the above interpretation.Electronicall y Signed by: Carlos Ibanez DO, 11/25/2015 6:03 AM [facility] Vital Signs Date Time Vital Sign Value Performing Clinician Facility 10-04-2023 08:29-0500 Diastolic blood pressure 70 mm[Hg] MD Sherif Paredes Work Phone: [facility] 10-04-2023 08:29-0500 Systolic blood pressure 120 mm[Hg] MD Sherif Paredes Work Phone: [facility] 10-04-2023 04:52-0500 Heart rate 75 /min MD Sherif Paredes Work Phone: [facility] 10-04-2023 04:44-0500 Body temperature 98 [degF] MD Sherif Paredes Work Phone: [facility] 10-04-2023 04:44-0500 Respiratory rate 20 /min MD Sherif Paredes Work Phone: [facility] 10-04-2023 04:44-0500 SaO2% (BldA) [Mass fraction] 94 % MD Sherif Paredes Work Phone: [facility] 09-30-2023 05:34-0500 Body weight 79.8 kg MD Sherif Paredes Work Phone: [facility] 09-26-2023 09:35-0500 Body height 180.34 cm MD Sherif Paredes Work Phone: [facility] 12-12-2022 14:00-0400 Body height 180.34 cm Trinh Leo Other [facility] Other 12-12-2022 14:00-0400 Body mass index (BMI) [Ratio] 25.66 kg/m2 Trinh Santanalm Other [facility] Other 12-12-2022 14:00-0400 Body temperature 97.3 [degF] Trinh Santanalm Other [facility] Other 12-12-2022 14:00-0400 Body weight 83.46 kg Trinh Santanalm Other [facility] Other 12-12-2022 14:00-0400 Diastolic blood pressure 82 mm[Hg] Trinh Leo Other [facility] Other 12-12-2022 14:00-0400 SaO2% (BldA) [Mass fraction] 93 % Trinh Santanalm Other [facility] Other 12-12-2022 14:00-0400 Systolic blood pressure 124 mm[Hg] Trinh Santanalm Other [facility] Other 03-29-2022 10:28-0400 Body height 180.34 cm Sherif Lofton Defrance Work Phone: [facility] 250 DO Work Phone: 03-29-2022 10:28-0400 Body mass index (BMI) [Ratio] 26.5 kg/m2 Sherif Lofton Def[place] Work Phone: [facility] 250 DO Work Phone: 03-29-2022 10:28-0400 Body surface area Derived from formula 2.06 m2 Sherif Lofton Def[place] Work Phone: [facility] 250 DO Work Phone: 03-29-2022 10:28-0400 Body weight 86.18 kg Sherif Lofton [place] Work Phone: [facility] 250 DO Work Phone: 03-29-2022 10:28-0400 Diastolic blood pressure 76 mm[Hg] Sherif Lofton [place] Work Phone: [facility] DO Work Phone: 03-29-2022 10:28-0400 Heart rate 60 /min Sherif Lofton [place] Work Phone: [facility] DO Work Phone: 03-29-2022 10:28-0400 Systolic blood pressure 124 mm[Hg] Sherif Lofton Def[place] Work Phone: [facility] 250 DO Work Phone: 12-06-2021 13:15-0400 Body height 180.34 cm Trinh Santanalm Other [facility] Other 12-06-2021 13:15-0400 Body mass index (BMI) [Ratio] 25.66 kg/m2 Trinh Bailey Other [facility] Other 12-06-2021 13:15-0400 Body weight 83.46 kg Trinh Bailey Other [facility] Other 12-06-2021 13:15-0400 Diastolic blood pressure 72 mm[Hg] Trinh Bailey Other [facility] Other 12-06-2021 13:15-0400 SaO2% (BldA) [Mass fraction] 97 % Trinh Bailey Other [facility] Other 12-06-2021 13:15-0400 Systolic blood pressure 138 mm[Hg] Trinh Bailey Other [facility] Other Encounters Encounter Date Encounter Type Care Provider Facility Start: 10-05-2023 Telephone encounter Eri guadarrama RN Work Phone: [facility] Comment on above: Transition Of Care Start: 10-03-2023 Non-patient / Non-visit MD Reyes id Defrance Work Phone: [facility] Work Phone: Start: 10-03-2023 Non-patient / Non-visit MD Reyes id Defrance Work Phone: [facility] Work Phone: Start: 09-26-2023 Orders Only Anel Llamas RN [facility] Comment on above: 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 (CMS-HCC) (Primary Dx); Other cerebrovascular vasospasm and vasoconstriction Start: 09-26-2023 Non-patient / Non-visit MD Reyes id Defrance Work Phone: [facility] Work Phone: Start: 09-25-2023 End: 10-04-2023 Evaluation and management of inpatient Sherif Paredes Facility:[facility] Start: 09-25-2023 End: 10-04-2023 Evaluation and management of inpatient MD Sherif Paredes Work Phone: [facility] Work Phone: Start: 09-20-2023 End: 09-25-2023 Evaluation and management of inpatient [facility] Start: 09-20-2023 End: 09-25-2023 Evaluation and management of inpatient [facility] Start: 09-20-2023 ambulatory SHERIF PAREDES [facility] Start: 09-20-2023 End: 09-25-2023 Evaluation and management of inpatient [facility] Start: 05-04-[address] [place] Facility: Start: 12-12-2022 End: 12-12-2022 ambulatory Trinh Bailey [facility] Other Start: 12-12-2022 Patient encounter procedure Trinh jeter [facility] Vascular Surgery Start: 11-24-2022 Rx Renewal Sherif caballero Work Phone: [facility] 250 DO Work Phone: Start: 11-20-2022 Telephone encounter [facility] Avendano [facility] Work Phone: Start: 09-12-2022 Rx Renewal Sherif caballero [facility] Work Phone: Start: 04-24-2022 End: 04-24-[address] CAITIE PITTS Facility:[facility] Start: 04-20-2022 Rx Renewal Sherif caballero Work Phone: [facility] 250 DO Work Phone: Start: 03-29-2022 Office outpatient vi sit 15 minutes Sherif Paredes Work Phone: [facility] 250 DO Work Phone: Start: 02-23-2022 Rx Renewal Sherif Rodas ce Work Phone: [facility] DO Work Phone: Start: 02-04-2022 End: 02-04-[address] EUGENE PICKETT Facility:[facility] Start: 12-06-2021 End: 12-06-2021 ambulatory Trinh Bailey Other [facility] Other Start: 12-06-2021 Follow-up encounter Trinh Balderas [facility] Start: 09-13-2021 End: 09-13-[address] KENY MUELLER Facility:[facility] Start: 05-17-2021 Chart Update Sherif Rodas ce Work Phone: [facility] 250 DO Work Phone: Start: 05-17-2021 Patient encounter procedure Da jacyyuri Rolly [place] Work Phone: [facility] [place] Work Phone: Start: 03-26-2018 Patient encounter PROVIDER UNKNOWN F acility:[id number] Start: 01-23-2018 End: 01-23-2018 Emergency department patient visit PROVIDER NOT IN [facility] Start: 09-07-2016 End: 09-08-2016 Evaluation and management of inpatient JAMESON SHERIDAN [facility] Start: 11-25-2015 End: 11-26-2015 Evaluation and management of inpatient KAY JEAN [facility] Procedures Date Procedure Procedure Detail Performing Clinician Start: 10-01-2023 CT of head without contrast MD Sherif Paredes Work Phone: Start: 09-27-2023 CT of head without contrast MD Sherif Paredes Work Phone: Start: 09-20-2023 Adult depression screening assessment Anel Llamas RN Angioplasty of carot id artery Sherif Rolly Lena Work Phone: Hernia repair Sherif Rolly Adrianna ce Work Phone: History of carotid endarterectomy H/O carotid endarterectomy Sherif Rolly Lena Work Phone: Percutaneous transluminal coronary angioplasty Sherif Rolly Lena Work Phone: Procedure on back Sherif Lofton Avendano Work Phone: NEGATED: Highlighted row has not occurred! Total colonoscopy Sherif Lofton Lena Work Phone: Plan of Treatment Date Care Activity Detail Author Start: 09-24-2024 Adult BMI Screening Adult BMI Screen ing [facility] Start: 09-20-2024 Depression Screening Depression Scre ening [facility] Start: 09-20-2024 Tobacco Screening Tobacco Screening [facility] Start: 11-08-2023 End: 11-08-2023 Patient encounter procedure 11/08/2023 2:00 PM EDT Office Visit [facility] [address] [place] [phone] Gopal Nova MD [address] [place] [address], [address], [address] [place] [address] [facility] Start: 10-22-2023 End: 10-22-2023 Patient encounter procedure 10/22/2023 2:15 PM EDT Office Visit [facility] [address] [place] [address] Sherif Paredes MD [address] [place], [place] [phone] [facility] Start: 10-16-2023 End: 10-16-2023 Patient encounter procedure 10/16/2023 10:15 AM EST Office Visit [facility] [place] [address] Sherif Paredes MD [address] [place] [address] [facility] Start: 10-04-2023 [facility] Start: 09-26-2023 [facility] Start: 09-26-2023 End: 09-26-2024 Event Monitor (In Office) [facility] Work Phone: Comment on above: Expected: 09/26/2023 , Expires: 09/26/2024 Start: 09-25-2023 Hospital admission [facility] Start: 09-25-2023 Referral to clinical psychologist social [facility] Start: 07-23-2023 COVID-19 Vaccine () COVID-19 Vaccine () [facility] Start: 04-26-2023 FUV, Provider: [place], Status: Pen, Time: 10:30 AM FUV, Provider: [place], Status: Pen, Time: 10:30 AM [facility] 250 DO Work Phone: Start: 03-22-2023 FUV, Provider: [place], Status: Pen, Time: 11:20 AM FUV, Provider: [place], Status: Pen, Time: 11:20 AM [facility] DO Work Phone: Start: 03-29-2022 FUV, Provider: [place], Status: Pen, Time: 10:30 AM FUV, Provider: [place], Status: Pen, Time: 10:30 AM [facility] 250 DO Work Phone: Start: 12-20-2021 FUV, Provider: [place], Status: Pen, Time: 11:15 AM FUV, Provider: [place], Status: Pen, Time: 11:15 AM [facility] 250 DO Work Phone: Start: 10-15-2019 Medicare Annual Wellness Visit Medicare Annual Wellness Visit [facility] Start: 2012 Fall Risk Screening Fall Risk Screen [facility] Start: 1966 DTaP,Tdap and Td Vaccines (1 - Tdap) DTaP,Tdap and Td Vaccines (1 - Tdap) [facility] Start: 1965 Adult BMI Follow Up Plan Adult BMI Follow Up Plan [facility] Patient Education Stroke (DC) Le ft-Side Stroke (DC) [facility] [facility] Work Phone: Patient referral [facility] Work Phone: Immunizations Immunization Date Immunization Notes Care Provider Fa cili 05-28-2023 Covid-19, Mrna, Lnp- s, Pf, 30 Mcg/0.3 Ml Dose, Edwin-sucrose Anel Llamas RN [facility] 05-28-2023 Covid-19, Mrna, Lnp- s, Pf,edwin-sucrose,30 Mcg/0.3ml Fall23 Anel Llamas RN [facility] 05-28-2023 Influenza Vaccine, Quadrivalent, Adjuvanted Anel Llamas RN [facility] 05-28-2023 Seasonal trivalent influenza vaccine, adjuvanted, preservative free Anel Llamas RN [facility] 04-27-2023 RSV, recombinant, protein subunit RSVpreF, adjuvant reconstituted, 0.5 mL, PF Anel Llamas RN [facility] 05-25-2022 Influenza, High-dose , Quadrivalent Anel Llamas RN [facility] 04-27-2022 Covid-19, Mrna, Lnp- s, Bivalent, Pf, 30mcg/0.3 ml Anel Llamas RN [facility] 04-27-2022 COVID-19, mRNA, LNP- S, PF, 30mcg/0.3mL Dose Anel Llamas RN [facility] 11-10-2021 Covid-19, Mrna, Lnp- s, Pf, 30 Mcg/0.3 Ml Dose, Edwin-sucrose Anel Llamas RN [facility] 11-10-2021 SARS-COV-2 (COVID-19 ) Vaccine, Unspecified Anel Llamas RN [facility] 05-19-2021 Influenza Vaccine, Quadrivalent, Adjuvanted Anel Llamas RN [facility] 05-19-2021 influenza virus vacc ine, unspecified formulation Anel Llamas RN [facility] 04-05-2021 PfizerBioNTech COVI D-19 Vacc 30 MCG/0.3ML Intramuscular Suspension Sherif Lofton Defrance Work Phone: [facility] Work Phone: 09-29-2020 PfizerBioNTech COVI D-19 Vacc 30 MCG/0.3ML Intramuscular Suspension Sherif Rolly Defrance Work Phone: [facility] Work Phone: 09-06-2020 PfizerBioNTech COVI D-19 Vacc 30 MCG/0.3ML Intramuscular Suspension Sherif Rolly Defrance Work Phone: [facility] Work Phone: 05-13-2020 influenza, seasonal, injectable Sherif T Defrance Work Phone: [facility] 04-16-2020 Influenza Vaccine, Quadrivalent, Adjuvanted Anel Llamas RN [facility] 04-16-2020 influenza, injectabl e, quadrivalent, preservative free Sherif T Defrance Work Phone: [facility] 04-16-2020 pneumococcal polysaccharide vaccine, 23 valent Sherif Lofton Defrance Work Phone: [facility] 09-25-2019 zoster vaccine recombinant Sherif T Defrance Work Phone: [facility] 07-22-2019 zoster vaccine recombinant Sherif T Defrance Work Phone: [facility] 07-13-2019 pneumococcal conjuga te vaccine, 13 valent Sherif T Defrance Work Phone: [facility] Work Phone: 05-14-2019 influenza, high dose seasonal, preservative-free Sherif T Defrance Work Phone: [facility] 250 DO Work Phone: 05-14-2019 Seasonal trivalent influenza vaccine, adjuvanted, preservative free Sherif T Defrance Work Phone: [facility] 04-13-2019 influenza, seasonal, injectable Sherif T Defrance Work Phone: [place] [address] DO Work Phone: 10-20-2018 pneumococcal conjuga te vaccine, 13 valent Sherif T Defrance Work Phone: [facility] 05-27-2018 influenza, high dose seasonal, preservative-free Anel Llamas RN [facility] 05-29-2017 influenza virus vacc ine, unspecified formulation Anel Llamas RN [facility] 05-29-2017 pneumococcal conjuga te vaccine, 13 valent Anel Llamas RN [facility] 04-13-2017 influenza virus vacc ine, unspecified formulation Sherif Lofton Defrance Work Phone: [place] [address] DO Work Phone: 09-08-2016 pneumococcal polysaccharide vaccine, 23 valent Sherif T Defrance Work Phone: [place] [address] DO Work Phone: 08-25-2016 pneumococcal polysaccharide vaccine, 23 valent Sherif T Defrance Work Phone: [place] [address] DO Work Phone: 06-14-2016 influenza, high dose seasonal, preservative-free Sherif T Defrance Work Phone: [place] [address] DO Work Phone: 05-29-2016 influenza virus vacc ine, unspecified formulation Anel Llamas RN [facility] 05-29-2016 influenza, injectabl e, madin julito canine kidney, preservative free Sherif Rolly Defrance Work Phone: [place] [address] DO Work Phone: 05-13-2016 influenza virus vacc ine, unspecified formulation Sherif Lofton Defrance Work Phone: [facility] 250 DO Work Phone: 05-13-2015 influenza virus vacc ine, unspecified formulation Sherif Lofton Defrance Work Phone: [facility] DO Work Phone: 04-27-2015 influenza virus vacc ine, unspecified formulation Anel Llamas RN [facility] 04-27-2015 influenza, seasonal, injectable Sherif Lofton Defrance Work Phone: [facility] 250 DO Work Phone: 04-26-2015 pneumococcal polysaccharide vaccine, 23 valent Sherif Lofton Defrance Work Phone: [facility] 250 DO Work Phone: 05-13-2014 influenza virus vacc ine, unspecified formulation Sherif Lofton Defrance Work Phone: [facility] 250 DO Work Phone: 05-13-2013 pneumococcal polysaccharide vaccine, 23 valent Sherif Lofton Defrance Work Phone: [facility] 250 DO Work Phone: 09-06-2009 novel influenza-H1N1 -09, preservative-free, injectable Sherif Lofton Defrance Work Phone: [facility] 250 DO Work Phone: Payers Date Payer Category Payer Medicare AET[employer] MEDICARE A ETNA MEDICARE PLAN (PPO) [id number] 2023-Present [phone] [address] [place] [address] [id number] 2022 Self-pay [id number] 1960 Private Health Insurance [id number] 1945 Unknown [id number] 93 1945 Unknown [id number] 93 1945 Unknown [id number] 93 1945 Unknown [id number] [id number] 56 1945 Unknown [id number] [id number] 286 1945 Unknown [id number] 286 1947 Unknown [id number] 286 1947 Unknown [id number] [id number] 286 1945 Unknown [id number] 286 1947 Unknown [id number] 286 1947 Unknown [id number] 286 Medicare [id number] Medicare Medicare [id number] Unknown [id number] Unknown Unknown [place] [id number] Unknown [id number] 31 Unknown [id number] 31 Social History Date Type Detail Facility Start: 09-23-2020 End: 09-25-2023 Occasional alcohol use Occasional alcohol use [facility] Start: 09-23-2020 End: 09-25-2023 Sex Assigned At [facility] Start: 01-31-2018 End: 09-27-2023 Tobacco smoking status NHIS Never smoked tobacco [facility] Start: 01-31-2018 Tobacco use and exposure Smokeless tobacco non-user [facility] Start: 09-20-2023 Alcohol intake Ex-drinker (finding) [facility] Has the [employer], [employer], or [employer] threatened to shut off services in your home in past 12Mo No [facility] How often to you hav e a drink containing alcohol? Never [facility] How many standard drinks containing alcohol do you have on a typical day? Patient does not drink [facility] Start: 1945 Sex Assigned At Not on file P [facility] Start: 1945 Sex Assigned At Male F [facility] Medical Equipment Procedure Code Equipment Code Equipment Origin al Text Equipment Identifier Dates Endarterectomy, carotid Cardiovascular patch, animal-derived [id number] [facility] Start: 05-10-2020 Goals Date Patient Goal Desired Activity /State Personal health goal Comment on above: Formatting of this n ote might be different from the original. 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 [facility] Work Phone: 09-25-2023 Functional status Disability Sta tus Patient at [facility] Work Phone: Mental Status Date Assessment Result Facility 10-04-2023 Cognitive function Cognitive Sta tus Patient at [facility] Work Phone: Clinical Notes 12-06-2021 to 10-05-2023 Telephone Encounter - Eri Martin RN - 10/05/2023 9:22 AM ESTTelephone Encounter - Eri Martin RN - 10/05/2023 9:22 AM ESTTelephone Encounter - Eri Martin RN - 10/05/2023 9:21 AM EST Note Date & Type Note Facility 10-05-2023 Miscellaneous Notes A user error has taken place: encounter opened in error, closed for administrative reasons. documented in this encounter [employer] 10-05-2023 Telephone encounter Note A user error has taken place: encounter opened in error, closed for administrative reasons. [employer] Work Phone: 10-05-2023 Miscellaneous Notes Transition of Care Additional Questions/Concerns Requiring PCP Follow-Up: may call to change BEL[facility]N appt. This documentation is being used for Transition of Care purposes: Yes Goal: Patient will demonstrate a safe transition from facility to home Diagnosis on Discharge: CVA Impaired mobility and ADL's Vertigo History of cardiac catheterization HTN Hyperlipidemia Discharge Specialty: Neurology Name of Discharging Facility: [facility] rehab Patient was at [facility] 09/20/23 - 09/25/23 Date of Facility Discharge: 09/25/23 - 10/04/23 Date of Interactive Contact and Name of Public Housing Manager: Spoke with Janice on 10/05/23 Medication Review Completed: Yes Medication Reconciliation Questions/Concerns: Tylenol 500 mg every 4 hours as needed Meclizine 25 mg every 8 hours as needed for dizziness Scopolamine patch every 72 hours as need for dizziness Discontinue- Rosuvastatin Follow Up Appointments with Providers: Primary: Sherif Paredes MD BEL[facility]N 10/16/23 @ 3:15 Specialty: OP therapy at [facility] Specialty: Neurology Dr Rosado - 10/17/23 @ 3:00 Specialty: Dr La for CVA Rehab - 11/14/23 @ 9:45 Review of Pending Lab/Diagnostic Tests and Plan for Completion: MRI was done and confirmed PICA ischemic stroke with hemorrhagic conversion Neurosurgery did not recommend surgical intervention and CTA showed occlusion of left V1 and moderate stenosis of right M1. He then went to rehab and symptoms worsened, he was then sent for a repeat CT on 10/01/23. Showed interval resolution of heterogenous blood products in left hemisphere. Patient was placed on Meclizine and symptoms improved. Assessment and Support of Treatment Regimen Adherence and Medication Management: Patient feels really good and is not having any dizziness, blurred vision or headache Patient feels steady when ambulating and denies need for an DME Patient has medications and is taking as prescribed Lives with spouse and has good support Patient is aware of follow up appts. Education Provided by ACN to Support Self-Management, Independent Living and ADLs: Take medications as prescribed Check blood sugars at breakfast and dinner guardian family member placed day of discharge and follow instructions provided with device. -Reviewed signs of a stroke using BE FAST, actions to take and risk factors. Reviewed acronym and symptoms. Balance (Loss of Balance, Headache, Dizziness), Eyes (Abrupt Vision Changes), Face (Drooping), Arms (Numbness/Weakness Arms/Legs), Speech (Difficulty with Speech), Time (Call 911 Right Away). Patient Verbalizes Understanding. Anticoagulation Education: reviewed signs of bleeding and when to contact provider/go to ER, bleeding precautions and avoid NSAIDS. -Check daily BP 1-2 hours after taking medications in AM. -Eat a low fat and low salt diet -No heavy lifting great than 10 lbs for 4 weeks -Follow up with providers as scheduled -Patient verbalized understanding. CN contact information, Eri Martin RN, can be reached at [phone] and will follow for a minimum of 30 days following hospitalization. Communication with Home Health Agencies and Other Services Utilized/Needed by the Patient: Scheduled. documented in this encounter [email or web address]23 Telephone encounter Note Transition of Care Additional Questions/Concerns Requiring PCP Follow-Up: may call to change BELÉN appt. This documentation is being used for Transition of Care purposes: Yes Goal: Patient will demonstrate a safe transition from facility to home Diagnosis on Discharge: CVA Impaired mobility and ADL's Vertigo History of cardiac catheterization HTN Hyperlipidemia Discharge Specialty: Neurology Name of Discharging Facility: [facility] rehab Patient was at [facility] 09/20/23 - 09/25/23 Date of Facility Discharge: 09/25/23 - 10/04/23 Date of Interactive Contact and Name of Public Housing Manager: Spoke with Janice on 10/05/23 Medication Review Completed: Yes Medication Reconciliation Questions/Concerns: Tylenol 500 mg every 4 hours as needed Meclizine 25 mg every 8 hours as needed for dizziness Scopolamine patch every 72 hours as need for dizziness Discontinue- Rosuvastatin Follow Up Appointments with Providers: Primary: Sherif Paredes MD BEL[facility]N 10/16/23 @ 3:15 Specialty: OP therapy at [facility] Specialty: Neurology Dr Rosado - 10/17/23 @ 3:00 Specialty: Dr La for CVA Rehab - 11/14/23 @ 9:45 Review of Pending Lab/Diagnostic Tests and Plan for Completion: MRI was done and confirmed PICA ischemic stroke with hemorrhagic conversion Neurosurgery did not recommend surgical intervention and CTA showed occlusion of left V1 and moderate stenosis of right M1. He then went to rehab and symptoms worsened, he was then sent for a repeat CT on 10/01/23. Showed interval resolution of heterogenous blood products in left hemisphere. Patient was placed on Meclizine and symptoms improved. Assessment and Support of Treatment Regimen Adherence and Medication Management: Patient feels really good and is not having any dizziness, blurred vision or headache Patient feels steady when ambulating and denies need for an DME Patient has medications and is taking as prescribed Lives with spouse and has good support Patient is aware of follow up appts. Education Provided by ACN to Support Self-Management, Independent Living and ADLs: Take medications as prescribed Check blood sugars at breakfast and dinner guardian family member placed day of discharge and follow instructions provided with device. -Reviewed signs of a stroke using BE FAST, actions to take and risk factors. Reviewed acronym and symptoms. Balance (Loss of Balance, Headache, Dizziness), Eyes (Abrupt Vision Changes), Face (Drooping), Arms (Numbness/Weakness Arms/Legs), Speech (Difficulty with Speech), Time (Call 911 Right Away). Patient Verbalizes Understanding. Anticoagulation Education: reviewed signs of bleeding and when to contact provider/go to ER, bleeding precautions and avoid NSAIDS. -Check daily BP 1-2 hours after taking medications in AM. -Eat a low fat and low salt diet -No heavy lifting great than 10 lbs for 4 weeks -Follow up with providers as scheduled -Patient verbalized understanding. CN contact information, Eri Martin RN, can be reached at [phone] and will follow for a minimum of 30 days following hospitalization. Communication with Home Health Agencies and Other Services Utilized/Needed by the Patient: [employer] Work Phone: 10-05-2023 Telephone encounter Note Scheduled. [employer] 10-03-2023 Progress note Note Date/Time October 03, 2023 1:35pm [facility] [address] [place] [address] Hospitalist Progress Note Signed Patient: Janice Shultz MR#: [id number] : 1945 Acct:[id number] Age/Sex: 78 / M Adm Date: 4 Loc: Room: [address] [place] [address] Type: ADM IN Attending Dr: Donovan La MD Copies to: ~ Date of Service: 10/03/2023 Subjective Subjective Narrative: Seen and examined on follow-up, resting comfortably in bed. Just returned for physical therapy, states is doing very well and is scheduled for discharge tomorrow. Denies any pain or discomfort, no new issues at this time. Exam Physical Exam Vital Signs: Temp Pulse Resp BP Pulse Ox O2 Del Method 97.8 F 57 L 18 117/77 96 Room Air 10/03/23 06:33 10/03/23 06:33 10/03/23 06:33 10/03/23 06:33 10/03/23 06:33 10/03/23 09:23 Narrative: CONST- Appears well -developed and well nourished No acute distress. CARDIAC-normal rate, regular rhythm, normal S1 & S2. PULM-diminished without wheeze or rhonchi, RA, no accessory muscle use or cough noted ABD - Soft. Bowel sounds are normal. No distention No tenderness EXTREM-no edema BLE calves nontender SKIN- W/D good turgor Objective Lab Results 09/30/23 04:20 09/30/23 04:20 Meds Allergies and Active Meds Allergies atorvastatin Allergy (Mild, Verified 09/27/23 10:22) Muscle Pain Active Meds: Active Medications Generic Name Dose Route Start Last Admin Trade Name Freq PRN Reason Stop Dose Admin Acetaminophen 500 mg 09/25/23 15:43 10/02/23 21:14 Acetaminophen 500 Mg Tablet PO 09/24/24 15:42 500 mg Q4H PRN Administration Pain Al Hydrox/Mg Hydrox/Simethicone 30 ml 09/25/23 15:43 Mag Hydrox/Al Hydrox/Simeth 30 Ml Udc PO 09/24/24 15:42 Q4H PRN Indigestion Aspirin 81 mg 09/26/23 09:00 10/03/23 09:11 Aspirin 81 Mg Tablet. PO 09/25/24 08:59 81 mg DAILY NAYELY Administration Bisacodyl 10 mg 09/25/23 15:43 Bisacodyl 10 Mg Supp.Rect SC 09/24/24 15:42 DAILY PRN Constipation Docusate Sodium 100 mg 09/25/23 15:43 09/30/23 09:07 Docusate 100 Mg Capsule PO 09/24/24 15:42 100 mg BID PRN Administration Constipation Docusate Sodium 283 mg 09/25/23 15:43 Docusate Enema 283 Mg/5 Ml Enema SC 09/24/24 15:42 DAILY PRN Constipation Fish Oil 1,000 mg 09/25/23 21:00 10/03/23 09:11 [place]-3/Fish Oil 1,000 Mg Capsule PO 09/24/24 20:59 1,000 mg BID NAYELY Administration Heparin Sodium (Porcine) 5,000 unit 09/25/23 22:00 10/03/23 06:34 Heparin 5,000 Unit/Ml Vial SUBCUT 09/24/24 21:59 5,000 unit Q8HR NAYELY Administration Lactulose 30 gm 09/25/23 15:43 09/30/23 17:13 Lactulose 20 Gm/30 Ml Udc PO 09/24/24 15:42 30 gm DAILY PRN Administration Constipation Meclizine HCl 25 mg 09/29/23 11:30 10/03/23 06:34 Meclizine 25 Mg Tablet PO 09/28/24 11:29 25 mg Q8HR NAYELY Administration Melatonin 5 mg 09/25/23 22:00 10/02/23 21:06 Melatonin 5 Mg Tablet PO 09/24/24 21:59 5 mg HS NAYELY Administration Metformin HCl 500 mg 09/26/23 17:00 10/02/23 17:51 Metformin 500 Mg Tablet PO 09/25/24 16:59 500 mg DAILY.WITH.SUPPER NAYELY Administration Metoprolol Tartrate 25 mg 09/25/23 21:00 10/03/23 09:11 Metoprolol Tartrate 25 Mg Tablet PO 09/24/24 20:59 25 mg BID NAYELY Administration Ondansetron HCl 4 mg 09/27/23 09:16 09/28/23 08:43 Ondansetron Odt 4 Mg Tab.Rapdis PO 09/26/24 09:15 4 mg Q8HR PRN Administration Nausea And Vomiting Scopolamine 1 each 09/26/23 11:30 10/02/23 10:58 Scopolamine 1 Mg/3 Days Patch TRANSDERML 09/25/24 11:29 1 each Q72H NAYELY Administration Sennosides 2 tab 09/26/23 12:00 Sennosides 8.6 Mg Tablet PO 09/25/24 11:59 DAILY@12 PRN If no BM in 2 days Simvastatin 20 mg 09/27/23 22:00 10/02/23 21:09 Simvastatin *Nf* 20 Mg Tablet PO 09/26/24 21:59 20 mg QHS NAYELY Administration Sodium Chloride 0 ml 09/25/23 15:43 Sodium Chloride 0.9 % 10 Ml Syringe IV-PUSH 09/24/24 15:42 PRN PRN Flush Tamsulosin HCl 0.4 mg 09/25/23 22:00 10/02/23 21:07 Tamsulosin 0.4 Mg Cap.Er.24h PO 09/24/24 21:59 0.4 mg QHS NAYELY Administration A&P - Hospitalist Assessment/Plan (1) Vertigo: (2) Hypertension: (3) Hyperlipidemia: (4) CVA (cerebral vascular accident): (5) CAD (coronary artery disease): Plan 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 Diabetes?metformin, blood sugars reviewed, well-controlled 2. Hypertension, CAD hx PA/ stents, HLD?metoprolol, Fish oil, ASA. Blood pressures reviewed, well-controlled 3. BPH?tamsulosin, monitor for retention Documented By: Sarah Malhotra APRN 10/03/23 1327 Signed By: <Electronically signed by NAN Malhotra> 10/03/23 1426 <Electronically signed by Niurka Chung MD> 10/03/23 1641 [facility] Work Phone: 1(726) 856-301102-21-2024 Progress note Author Hernan Minaya [facility] October 03, 2023 2:33pm Note Date/Time October 03, 2023 2:33pm [facility] [address] [place] [address] Physiatry(Rehab) Progress Note Signed Patient: Janice Shultz MR#: [id number] : 1945 Acct:[id number] Age/Sex: 78 / M Adm Date: 4 Loc: Room: [address] [place] [address] Type: ADM IN Attending Dr: Donovan La MD Copies to: ~ Date of Service: 10/03/2023 Subjective Subjective Narrative: Mr. Shultz is a 78 year old male with PMH previous CVA in 2017, HTN, CAD and CABG who presents to [facility] rehab following acute hospitalization for left PICA stroke with hemorrhagic transformation. The patient initially presents to [facility] for evaluation for 5 days vertigo with N/V, blurred vision, and gait instability. He reportedly had a fall1 day prior to admission due to vertigo. Non contrast CTH was done and demonstrated evidence of hemorrhage in the PICA territory. Patient was transferred to [facility]. 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 Neurosurgery was consulted and recommended no surgical intervention. CTA demonstrated occlusion of left V1 and moderate stenosis of right M1. Prior to his CVA, patient was very active. Exercised daily. Lives with his spouse in a 2 story home with 3 [address]. First floor set up possible. Independent. Patient was seen and evaluated upon admission. Resting comfortably in bed. In nodistress. States that he was a little more dizzy this morning and nauseous but this improved. Denies chest pain, SOB, fever, chills. Denies significant weakness from this CVA. Endorses slight weakness on the left from previous CVA. No bowel/bladder incontinence. Denies swallowing or speech abnormalities. Tolerating therapy thus far. Interval history: No new issues overnight. He is doing well. We reviewed his medications for discharge. Plan is home tomorrow. Review of Systems Review of Systems All other systems reviewed & are negative unless noted below or in HPI Exam Physical Exam Vital Signs: Temp Pulse Resp BP Pulse Ox O2 Del Method 97.8 F 57 L 18 117/77 96 Room Air 10/03/23 06:33 10/03/23 06:33 10/03/23 06:33 10/03/23 06:33 10/03/23 06:33 10/03/23 09:23 Narrative: General: Awake, alert, oriented x3 HENT: Normal to inspection, normocephalic, atraumatic Eyes: PERRL, normal conjunctiva and sclera Neck: Normal ROM, normal visual inspection. Trachea midline. Cardio: Regular heart rate and rhythm Respiratory: Clear to auscultation bilaterally. Normal respiratory effort. No respiratory distress. GI: Abdomen soft, nontender, nondistended, active bowel sounds x4 quadrants Neuro: CN II-XII intact. Strength 5/5, equal bilaterally. Reports some dizziness when out of bed. No headache, vision changes. Extremities: No edema, erythema, cyanosis Psych: Mood and affect appropriate. Normal speech. Objective Labs 09/30/23 04:20 09/30/23 04:20 Labs: Laboratory Results - last 24 hr 10/02/23 10/03/23 16:14 06:32 POC Glucose 112 119 Medications and Allergies Allergies and Active Meds: Allergies atorvastatin Allergy (Mild, Verified 09/27/23 10:22) Muscle Pain Active Medications Generic Name Dose Route Start Last Admin Trade Name Freq PRN Reason Stop Dose Admin Acetaminophen 500 mg 09/25/23 15:43 10/02/23 21:14 Acetaminophen 500 Mg Tablet PO 09/24/24 15:42 500 mg Q4H PRN Administration Pain Al Hydrox/Mg Hydrox/Simethicone 30 ml 09/25/23 15:43 Mag Hydrox/Al Hydrox/Simeth 30 Ml Udc PO 09/24/24 15:42 Q4H PRN Indigestion Aspirin 81 mg 09/26/23 09:00 10/03/23 09:11 Aspirin 81 Mg Tablet.Dr PO 09/25/24 08:59 81 mg DAILY NAYELY Administration Bisacodyl 10 mg 09/25/23 15:43 Bisacodyl 10 Mg Supp.Rect SC 09/24/24 15:42 DAILY PRN Constipation Docusate Sodium 100 mg 09/25/23 15:43 09/30/23 09:07 Docusate 100 Mg Capsule PO 09/24/24 15:42 100 mg BID PRN Administration Constipation Docusate Sodium 283 mg 09/25/23 15:43 Docusate Enema 283 Mg/5 Ml Enema SC 09/24/24 15:42 DAILY PRN Constipation Fish Oil 1,000 mg 09/25/23 21:00 10/03/23 09:11 [place]-3/Fish Oil 1,000 Mg Capsule PO 09/24/24 20:59 1,000 mg BID NAYELY Administration Heparin Sodium (Porcine) 5,000 unit 09/25/23 22:00 10/03/23 14:24 Heparin 5,000 Unit/Ml Vial SUBCUT 09/24/24 21:59 5,000 unit Q8HR NAYELY Administration Lactulose 30 gm 09/25/23 15:43 09/30/23 17:13 Lactulose 20 Gm/30 Ml Udc PO 09/24/24 15:42 30 gm DAILY PRN Administration Constipation Meclizine HCl 25 mg 09/29/23 11:30 10/03/23 14:24 Meclizine 25 Mg Tablet PO 09/28/24 11:29 25 mg Q8HR NAYELY Administration Melatonin 5 mg 09/25/23 22:00 10/02/23 21:06 Melatonin 5 Mg Tablet PO 09/24/24 21:59 5 mg HS NAYELY Administration Metformin HCl 500 mg 09/26/23 17:00 10/02/23 17:51 Metformin 500 Mg Tablet PO 09/25/24 16:59 500 mg DAILY.WITH.SUPPER NAYELY Administration Metoprolol Tartrate 25 mg 09/25/23 21:00 10/03/23 09:11 Metoprolol Tartrate 25 Mg Tablet PO 09/24/24 20:59 25 mg BID NAYELY Administration Ondansetron HCl 4 mg 09/27/23 09:16 09/28/23 08:43 Ondansetron Odt 4 Mg Tab.Rapdis PO 09/26/24 09:15 4 mg Q8HR PRN Administration Nausea And Vomiting Scopolamine 1 each 09/26/23 11:30 10/02/23 10:58 Scopolamine 1 Mg/3 Days Patch TRANSDERML 09/25/24 11:29 1 each Q72H NAYELY Administration Sennosides 2 tab 09/26/23 12:00 Sennosides 8.6 Mg Tablet PO 09/25/24 11:59 DAILY@12 PRN If no BM in 2 days Simvastatin 20 mg 09/27/23 22:00 10/02/23 21:09 Simvastatin *Nf* 20 Mg Tablet PO 09/26/24 21:59 20 mg QHS NAYELY Administration Sodium Chloride 0 ml 09/25/23 15:43 Sodium Chloride 0.9 % 10 Ml Syringe IV-PUSH 09/24/24 15:42 PRN PRN Flush Tamsulosin HCl 0.4 mg 09/25/23 22:00 10/02/23 21:07 Tamsulosin 0.4 Mg Cap.Er.24h PO 09/24/24 21:59 0.4 mg QHS NAYELY Administration Assessment/Plan Assessment/Plan (1) CVA (cerebral vascular accident): (2) Impaired mobility and activities of daily living: (3) Vertigo: (4) History of cardiac catheterization: (5) Hypertension: (6) Hyperlipidemia: Plan This is a 78-year-old male with past medical history of CVA in 2017, HTN, CAD s/p CABG who presents to [facility] for rehab following 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 He has continued impaired mobility and impaired independence with ADLsand IADLs requiring PT/OT/TOP KNITTER 5-7 days/week 3 hours/day to maximize safety and independence with functional ability and self-care. #. 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 We will also work to improve patient's safety awareness during transfers and ambulation. OT for basic ADL retraining (bathing, dressing, toileting, continence, grooming,feeding, transferring), to increase activity tolerance and functional mobility to evaluate for adaptive assistive device. We will work to improve patient's endurance and educate patient on fall prevention and energy conservation techniques-pacing strategies and proper breathing techniques during functional tasks. Patient education Pressure ulcer prophylaxis; encourage mobilization, frequent postural changes, pressure-relief techniques DVT prophylaxis Encourage deep breathing exercise incentive spirometry. Monitor bladder. Toileting schedule. Continue current bladder management, with scans as needed and CIC if needed. Start bowel care program every day to obtain continence, prevent ileus. Maintain fall precautions Gait and balance retraining Provision of the necessary gait aids and functional adaptive equipment to enhance the patient's a functional religion Encourage deep breathing exercises and incentive spirometry RD evaluation Ensure adequate nutrition and hydration Discharge planning. -Continue aspirin, Lipitor for secondary stroke prevention -Scopolamine patch for dizziness ? Repeat head CT for morning dizziness. #. HTN -Continue lopressor 25 mg BID #. Hx of CAD s/p CABG -Continue aspirin, statin, lopressor as above #. TIIDM -Continue metformin 500 mg daily Updates/Medical Issues -He has met all functional goals. Ready for discharge tomorrow. Medications reconciled. Hospitalist to assist with management of comorbid medical conditions #. Pain control: Tylenol PRN #. Bowel and bladder: Continent of Bowel/bladder #. Skin: (pressure ulcer/surgical site) No pressure injuries on admission #. Sleep: Optimize sleep/wake cycle. Melatonin DVT prophylaxis: Heparin 5000 units q8hr Functional status: Impaired. Limited by pain, weakness Discharge planning: Home tomorrow. I spent greater than 25 minutes for services, including [id number] encounter with the patient, discussion of the case, plan of care, and exam; and [id number] activities, such as reviewing pertinent email production consultant documentation, recent therapy notes, laboratory and radiology studies, and discussion of case with care team including physician, nursing, community case manager, and therapists. More than 50 % of time was spent on patient/family counseling or coordination ofcare. Documented By: Hernan Minaya MD 10/03/23 1429 Signed By: <Electronically signed by Hernan Minaya MD> 10/03/23 1430 [facility] Work Phone: [phone] 810-828802-20-2024 Progress note Author Donovan La [facility] October 02, 2023 1:17pm Note Date/Time October 02, 2023 11:03am [facility] [address] [place] [address] Physiatry(Rehab) Progress Note Signed Patient: Janice Shultz MR#: [id number] : 1945 Acct:[id number] Age/Sex: 78 / M Adm Date: 4 Loc: Room: [address] [place] [address] Type: ADM IN Attending Dr: Donovan La MD Copies to: ~ Date of Service: 10/02/2023 Subjective Subjective Narrative: Mr. Shultz is a 78 year old male with PMH previous CVA in 2017, HTN, CAD and CABG who presents to [facility] rehab following acute hospitalization for left PICA stroke with hemorrhagic transformation. The patient initially presents to [facility] for evaluation for 5 days vertigo with N/V, blurred vision, and gait instability. He reportedly had a fall1 day prior to admission due to vertigo. Non contrast CTH was done and demonstrated evidence of hemorrhage in the PICA territory. Patient was transferred to [facility]. 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 Neurosurgery was consulted and recommended no surgical intervention. CTA demonstrated occlusion of left V1 and moderate stenosis of right M1. Prior to his CVA, patient was very active. Exercised daily. Lives with his spouse in a 2 story home with 3 KEYSHAWN. First floor set up possible. Independent. Patient was seen and evaluated upon admission. Resting comfortably in bed. In nodistress. States that he was a little more dizzy this morning and nauseous but this improved. Denies chest pain, SOB, fever, chills. Denies significant weakness from this CVA. Endorses slight weakness on the left from previous CVA. No bowel/bladder incontinence. Denies swallowing or speech abnormalities. Tolerating therapy thus far. Interval history: Patient was evaluated in his room while resting in bed. He is feeling very wellthis morning. Denies dizziness, vertigo, vision changes nausea or vomiting. Hebelieves meclizine helps quite a bit. He is happy with his overall progress in therapy and would like to go home sometime this week. Will arrange an FI with whenever she is available. Review of Systems Review of Systems All other systems reviewed & are negative unless noted below or in HPI Exam Physical Exam Vital Signs: Temp Pulse Resp BP Pulse Ox O2 Del Method 97.5 F L 70 18 118/75 98 Room Air 10/02/23 08:11 10/02/23 08:11 10/02/23 08:11 10/02/23 08:11 10/02/23 08:11 10/02/23 10:33 Narrative: General: Awake, alert, oriented x3 HENT: Normal to inspection, normocephalic, atraumatic Eyes: PERRL, normal conjunctiva and sclera Neck: Normal ROM, normal visual inspection. Trachea midline. Cardio: Regular heart rate and rhythm Respiratory: Clear to auscultation bilaterally. Normal respiratory effort. No respiratory distress. GI: Abdomen soft, nontender, nondistended, active bowel sounds x4 quadrants Neuro: CN II-XII intact. Strength 5/5, equal bilaterally. Reports some dizziness when out of bed. No headache, vision changes. Extremities: No edema, erythema, cyanosis Psych: Mood and affect appropriate. Normal speech. Objective Labs 09/30/23 04:20 09/30/23 04:20 Labs: Laboratory Results - last 24 hr 10/01/23 10/02/23 16:30 05:46 POC Glucose 111 111 POC Glucose Comment Glu2: cleaned meter Medications and Allergies Allergies and Active Meds: Allergies atorvastatin Allergy (Mild, Verified 09/27/23 10:22) Muscle Pain Active Medications Generic Name Dose Route Start Last Admin Trade Name Freq PRN Reason Stop Dose Admin Acetaminophen 500 mg 09/25/23 15:43 10/01/23 21:55 Acetaminophen 500 Mg Tablet PO 09/24/24 15:42 500 mg Q4H PRN Administration Pain Al Hydrox/Mg Hydrox/Simethicone 30 ml 09/25/23 15:43 Mag Hydrox/Al Hydrox/Simeth 30 Ml Udc PO 09/24/24 15:42 Q4H PRN Indigestion Aspirin 81 mg 09/26/23 09:00 10/02/23 09:50 Aspirin 81 Mg Tablet.Dr PO 09/25/24 08:59 81 mg DAILY NAYELY Administration Bisacodyl 10 mg 09/25/23 15:43 Bisacodyl 10 Mg Supp.Rect SC 09/24/24 15:42 DAILY PRN Constipation Docusate Sodium 100 mg 09/25/23 15:43 09/30/23 09:07 Docusate 100 Mg Capsule PO 09/24/24 15:42 100 mg BID PRN Administration Constipation Docusate Sodium 283 mg 09/25/23 15:43 Docusate Enema 283 Mg/5 Ml Enema SC 09/24/24 15:42 DAILY PRN Constipation Fish Oil 1,000 mg 09/25/23 21:00 10/02/23 09:50 [place]-3/Fish Oil 1,000 Mg Capsule PO 09/24/24 20:59 1,000 mg BID NAYELY Administration Heparin Sodium (Porcine) 5,000 unit 09/25/23 22:00 10/02/23 05:34 Heparin 5,000 Unit/Ml Vial SUBCUT 09/24/24 21:59 5,000 unit Q8HR NAYELY Administration Lactulose 30 gm 09/25/23 15:43 09/30/23 17:13 Lactulose 20 Gm/30 Ml Udc PO 09/24/24 15:42 30 gm DAILY PRN Administration Constipation Meclizine HCl 25 mg 09/29/23 11:30 10/02/23 05:34 Meclizine 25 Mg Tablet PO 09/28/24 11:29 25 mg Q8HR NAYELY Administration Melatonin 5 mg 09/25/23 22:00 10/01/23 21:55 Melatonin 5 Mg Tablet PO 09/24/24 21:59 5 mg HS NAYELY Administration Metformin HCl 500 mg 09/26/23 17:00 10/01/23 17:54 Metformin 500 Mg Tablet PO 09/25/24 16:59 500 mg DAILY.WITH.SUPPER NAYELY Administration Metoprolol Tartrate 25 mg 09/25/23 21:00 10/02/23 09:50 Metoprolol Tartrate 25 Mg Tablet PO 09/24/24 20:59 25 mg BID NAYELY Administration Ondansetron HCl 4 mg 09/27/23 09:16 09/28/23 08:43 Ondansetron Odt 4 Mg Tab.Rapdis PO 09/26/24 09:15 4 mg Q8HR PRN Administration Nausea And Vomiting Scopolamine 1 each 09/26/23 11:30 09/29/23 12:12 Scopolamine 1 Mg/3 Days Patch TRANSDERML 09/25/24 11:29 1 each Q72H NAYELY Administration Sennosides 2 tab 09/26/23 12:00 Sennosides 8.6 Mg Tablet PO 09/25/24 11:59 DAILY@12 PRN If no BM in 2 days Simvastatin 20 mg 09/27/23 22:00 10/01/23 21:55 Simvastatin *Nf* 20 Mg Tablet PO 09/26/24 21:59 20 mg QHS NAYELY Administration Sodium Chloride 0 ml 09/25/23 15:43 Sodium Chloride 0.9 % 10 Ml Syringe IV-PUSH 09/24/24 15:42 PRN PRN Flush Tamsulosin HCl 0.4 mg 09/25/23 22:00 10/01/23 21:55 Tamsulosin 0.4 Mg Cap.Er.24h PO 09/24/24 21:59 0.4 mg QHS NAYELY Administration Assessment/Plan Assessment/Plan (1) Impaired mobility and activities of daily living: (2) Vertigo: (3) CVA (cerebral vascular accident): (4) History of cardiac catheterization: (5) Hypertension: (6) Hyperlipidemia: Plan This is a 78-year-old male with past medical history of CVA in 2017, HTN, CAD s/p CABG who presents to [facility] for rehab following 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 He has continued impaired mobility and impaired independence with ADLsand IADLs requiring PT/OT/TOP KNITTER 5-7 days/week 3 hours/day to maximize safety and independence with functional ability and self-care. #. 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 We will also work to improve patient's safety awareness during transfers and ambulation. OT for basic ADL retraining (bathing, dressing, toileting, continence, grooming,feeding, transferring), to increase activity tolerance and functional mobility to evaluate for adaptive assistive device. We will work to improve patient's endurance and educate patient on fall prevention and energy conservation techniques-pacing strategies and proper breathing techniques during functional tasks. Patient education Pressure ulcer prophylaxis; encourage mobilization, frequent postural changes, pressure-relief techniques DVT prophylaxis Encourage deep breathing exercise incentive spirometry. Monitor bladder. Toileting schedule. Continue current bladder management, with scans as needed and CIC if needed. Start bowel care program every day to obtain continence, prevent ileus. Maintain fall precautions Gait and balance retraining Provision of the necessary gait aids and functional adaptive equipment to enhance the patient's a functional religion Encourage deep breathing exercises and incentive spirometry RD evaluation Ensure adequate nutrition and hydration Discharge planning. -Continue aspirin, Lipitor for secondary stroke prevention -Scopolamine patch for dizziness ? Repeat head CT for morning dizziness. #. HTN -Continue lopressor 25 mg BID #. Hx of CAD s/p CABG -Continue aspirin, statin, lopressor as above #. TIIDM -Continue metformin 500 mg daily Updates/Medical Issues -Continues to improve daily. Vertigo symptoms are finally resolving. He had nonausea or vomiting over the past couple days. -Has been tolerating therapy without issues. Progressing towards functional baseline and wants to facilitate discharge home. Will arrange an FI with familyin the next day or two. Hospitalist to assist with management of comorbid medical conditions #. Pain control: Tylenol PRN #. Bowel and bladder: Continent of Bowel/bladder #. Skin: (pressure ulcer/surgical site) No pressure injuries on admission #. Sleep: Optimize sleep/wake cycle. Melatonin DVT prophylaxis: Heparin 5000 units q8hr Functional status: Impaired. Limited by pain, weakness Discharge planning: ELOS 1-2 weeks I spent greater than 15 minutes for services, including [id number] encounter with the patient, discussion of the case, plan of care, and exam; and [id number] activities, such as reviewing pertinent email production consultant documentation, recent therapy notes, laboratory and radiology studies, and discussion of case with care team including physician, nursing, community case manager, and therapists. More than 50 % of time was spent on patient/family counseling or coordination ofcare. <Statement entered by Donovan La MD - 10/02/23 13:17> I completed a substantive portion of this encounter, the medical decision makingportion of this note in its entirety, including Allied health note review, nursing note review, email production consultant note review, discussion with nursing and case management, and more than 50% of my time was spent on counseling and coordination of care, time spent 27 minutes Patient was personally seen by me, Dr. La, on the day of encounter, reviewed the history and the relevant portions of the chart, including current orders, allied health and email production consultant notes, labs/imaging and performed mims elements of exam and I formulated the plan of care and facilitated the medical decision making. Documented By: Tracy Fernandez APRN 10/02/23 1 056 Signed By: <Electronically signed by NAN Fernandez> 10/02/23 1102 <Electronically signed by Donovan La MD> 10/02/23 1317 [facility] Work Phone: [phone] 211-702002-19-2024 Progress note Author Donovan La [facility] October 01, 2023 1:32pm Note Date/Time October 01, 2023 1:32pm [facility] [address] [place] [address] Physiatry(Rehab) Progress Note Signed Patient: Janice Shultz MR#: [id number] : 1945 Acct:[id number] Age/Sex: 78 / M Adm Date: 4 Loc: Room: [address] [place] [address] Type: ADM IN Attending Dr: Donovan La MD Copies to: ~ Date of Service: 10/01/2023 Subjective Subjective Narrative: Mr. Shultz is a 78 year old male with PMH previous CVA in 2017, HTN, CAD and CABG who presents to [facility] rehab following acute hospitalization for left PICA stroke with hemorrhagic transformation. The patient initially presents to [facility] for evaluation for 5 days vertigo with N/V, blurred vision, and gait instability. He reportedly had a fall1 day prior to admission due to vertigo. Non contrast CTH was done and demonstrated evidence of hemorrhage in the PICA territory. Patient was transferred to [facility]. 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 Neurosurgery was consulted and recommended no surgical intervention. CTA demonstrated occlusion of left V1 and moderate stenosis of right M1. Prior to his CVA, patient was very active. Exercised daily. Lives with his spouse in a 2 story home with 3 KEYSHA[address]. First floor set up possible. Independent. Patient was seen and evaluated upon admission. Resting comfortably in bed. In nodistress. States that he was a little more dizzy this morning and nauseous but this improved. Denies chest pain, SOB, fever, chills. Denies significant weakness from this CVA. Endorses slight weakness on the left from previous CVA. No bowel/bladder incontinence. Denies swallowing or speech abnormalities. Tolerating therapy thus far. Interval history: Patient was seen and evaluated at the bedside. Resting comfortably in his recliner. In no distress today. States that his dizziness is improving. Repeat CT scan of his head is stable/improving. Review of Systems Review of Systems All other systems reviewed & are negative unless noted below or in HPI Exam Physical Exam Vital Signs: Temp Pulse Resp BP Pulse Ox O2 Del Method 98.0 F 69 16 92/62 L 95 Room Air 10/01/23 12:49 10/01/23 12:49 10/01/23 12:49 10/01/23 12:49 10/01/23 12:49 10/01/23 12:49 Narrative: General: Awake, A&O x 3, pleasant, cooperative, well nourished. Resting comfortably in bed HENT: NC, AT Eyes: No scleral icterus Neck: Supple Cardio: RRR, no murmurs, rubs or gallops. Extremities well perfused Respiratory: CTAB, no wheezes rhonchi or rales. No evidence of respiratory distress GI: Soft, nontender, nondistended Neuro: CN II-XII intact. Strength 5/5 right upper and lower extremities. Strength 5/5 left upper and lower extremities. Moves all extremities spontaneously. Sensation intact bilateral lower extremities. Extremities: No edema, erythema, cyanosis Psych: Affect, speech and movements normal. Mood congruent Objective Labs 09/30/23 04:20 09/30/23 04:20 Labs: Laboratory Results - last 24 hr 09/30/23 10/01/23 16:43 05:15 POC Glucose 94 112 POC Glucose Comment Glu2: cleaned meter Medications and Allergies Allergies and Active Meds: Allergies atorvastatin Allergy (Mild, Verified 09/27/23 10:22) Muscle Pain Active Medications Generic Name Dose Route Start Last Admin Trade Name Apq PRN Reason Stop Dose Admin Acetaminophen 500 mg 09/25/23 15:43 09/29/23 21:17 Acetaminophen 500 Mg Tablet PO 09/24/24 15:42 500 mg Q4H PRN Administration Pain Al Hydrox/Mg Hydrox/Simethicone 30 ml 09/25/23 15:43 Mag Hydrox/Al Hydrox/Simeth 30 Ml Udc PO 09/24/24 15:42 Q4H PRN Indigestion Aspirin 81 mg 09/26/23 09:00 10/01/23 09:11 Aspirin 81 Mg Tablet.Dr PO 09/25/24 08:59 81 mg DAILY NAYELY Administration Bisacodyl 10 mg 09/25/23 15:43 Bisacodyl 10 Mg Supp.Rect SC 09/24/24 15:42 DAILY PRN Constipation Docusate Sodium 100 mg 09/25/23 15:43 09/30/23 09:07 Docusate 100 Mg Capsule PO 09/24/24 15:42 100 mg BID PRN Administration Constipation Docusate Sodium 283 mg 09/25/23 15:43 Docusate Enema 283 Mg/5 Ml Enema SC 09/24/24 15:42 DAILY PRN Constipation Fish Oil 1,000 mg 09/25/23 21:00 10/01/23 09:11 [place]-3/Fish Oil 1,000 Mg Capsule PO 09/24/24 20:59 1,000 mg BID NAYELY Administration Heparin Sodium (Porcine) 5,000 unit 09/25/23 22:00 10/01/23 05:11 Heparin 5,000 Unit/Ml Vial SUBCUT 09/24/24 21:59 5,000 unit Q8HR NAYELY Administration Lactulose 30 gm 09/25/23 15:43 09/30/23 17:13 Lactulose 20 Gm/30 Ml Udc PO 09/24/24 15:42 30 gm DAILY PRN Administration Constipation Meclizine HCl 25 mg 09/29/23 11:30 10/01/23 05:11 Meclizine 25 Mg Tablet PO 09/28/24 11:29 25 mg Q8HR NAYELY Administration Melatonin 5 mg 09/25/23 22:00 09/30/23 22:06 Melatonin 5 Mg Tablet PO 09/24/24 21:59 5 mg HS NAYELY Administration Metformin HCl 500 mg 09/26/23 17:00 09/30/23 17:16 Metformin 500 Mg Tablet PO 09/25/24 16:59 500 mg DAILY.WITH.SUPPER NAYELY Administration Metoprolol Tartrate 25 mg 09/25/23 21:00 10/01/23 09:11 Metoprolol Tartrate 25 Mg Tablet PO 09/24/24 20:59 25 mg BID NAYELY Administration Ondansetron HCl 4 mg 09/27/23 09:16 09/28/23 08:43 Ondansetron Odt 4 Mg Tab.Rapdis PO 09/26/24 09:15 4 mg Q8HR PRN Administration Nausea And Vomiting Scopolamine 1 each 09/26/23 11:30 09/29/23 12:12 Scopolamine 1 Mg/3 Days Patch TRANSDERML 09/25/24 11:29 1 each Q72H NAYELY Administration Sennosides 2 tab 09/26/23 12:00 Sennosides 8.6 Mg Tablet PO 09/25/24 11:59 DAILY@12 PRN If no BM in 2 days Simvastatin 20 mg 09/27/23 22:00 09/30/23 22:06 Simvastatin *Nf* 20 Mg Tablet PO 09/26/24 21:59 20 mg QHS NAYELY Administration Sodium Chloride 0 ml 09/25/23 15:43 Sodium Chloride 0.9 % 10 Ml Syringe IV-PUSH 09/24/24 15:42 PRN PRN Flush Tamsulosin HCl 0.4 mg 09/25/23 22:00 09/30/23 22:06 Tamsulosin 0.4 Mg Cap.Er.24h PO 09/24/24 21:59 0.4 mg QHS NAYELY Administration Assessment/Plan Assessment/Plan (1) Impaired mobility and activities of daily living: (2) Vertigo: (3) CVA (cerebral vascular accident): (4) History of cardiac catheterization: (5) Hypertension: (6) Hyperlipidemia: Plan This is a 78-year-old male with past medical history of CVA in 2017, HTN, CAD s/p CABG who presents to [facility] for rehab following 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 He has continued impaired mobility and impaired independence with ADLsand IADLs requiring PT/OT/TOP KNITTER 5-7 days/week 3 hours/day to maximize safety and independence with functional ability and self-care. #. 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 We will also work to improve patient's safety awareness during transfers and ambulation. OT for basic ADL retraining (bathing, dressing, toileting, continence, grooming,feeding, transferring), to increase activity tolerance and functional mobility to evaluate for adaptive assistive device. We will work to improve patient's endurance and educate patient on fall prevention and energy conservation techniques-pacing strategies and proper breathing techniques during functional tasks. Patient education Pressure ulcer prophylaxis; encourage mobilization, frequent postural changes, pressure-relief techniques DVT prophylaxis Encourage deep breathing exercise incentive spirometry. Monitor bladder. Toileting schedule. Continue current bladder management, with scans as needed and CIC if needed. Start bowel care program every day to obtain continence, prevent ileus. Maintain fall precautions Gait and balance retraining Provision of the necessary gait aids and functional adaptive equipment to enhance the patient's a functional religion Encourage deep breathing exercises and incentive spirometry RD evaluation Ensure adequate nutrition and hydration Discharge planning. -Continue aspirin, Lipitor for secondary stroke prevention -Scopolamine patch for dizziness ? Repeat head CT for morning dizziness. #. HTN -Continue lopressor 25 mg BID #. Hx of CAD s/p CABG -Continue aspirin, statin, lopressor as above #. TIIDM -Continue metformin 500 mg daily Updates/Medical Issues -Overall improving -Repeat CT scan demonstrates interval resolution of cerebellar hemorrhage -Tolerating therapy at a high level. Likely DC later this week Hospitalist to assist with management of comorbid medical conditions #. Pain control: Tylenol PRN #. Bowel and bladder: Continent of Bowel/bladder #. Skin: (pressure ulcer/surgical site) No pressure injuries on admission #. Sleep: Optimize sleep/wake cycle. Melatonin DVT prophylaxis: Heparin 5000 units q8hr Functional status: Impaired. Limited by pain, weakness Discharge planning: OS 1-2 weeks I spent greater than 15 minutes for services, including [id number] encounter with the patient, discussion of the case, plan of care, and exam; and makfaua-cs-[id number] activities, such as reviewing pertinent email production consultant documentation, recent therapy notes, laboratory and radiology studies, and discussion of case with care team including physician, nursing, community case manager, and therapists. More than 50 % of time was spent on patient/family counseling or coordination ofcare. Documented By: Donovan La MD [id number] Signed By: <Electronically signed by Donovan La MD> 10/01/23 1332 [facility] Work Phone: [phone]) 283-377502-19-2024 Progress note Author Donovan La [facility] October 01, 2023 9:30am Note Date/Time September 28, 2023 12:45pm [facility] [address] [place] [address] Physiatry(Rehab) Progress Note Signed Patient: Janice Shultz MR#: [id number] : 1945 Acct:[id number] Age/Sex: 78 / M Adm Date: 4 Loc: Room: [address] [place] [address] Type: ADM IN Attending Dr: Donovan La MD Copies to: ~ Date of Service: 09/28/2023 Subjective Subjective Narrative: Mr. Shultz is a 78 year old male with PMH previous CVA in 2017, HTN, CAD and CABG who presents to [facility] rehab following acute hospitalization for left PICA stroke with hemorrhagic transformation. The patient initially presents to [facility] for evaluation for 5 days vertigo with N/V, blurred vision, and gait instability. He reportedly had a fall1 day prior to admission due to vertigo. Non contrast CTH was done and demonstrated evidence of hemorrhage in the PICA territory. Patient was transferred to [facility]. 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 Neurosurgery was consulted and recommended no surgical intervention. CTA demonstrated occlusion of left V1 and moderate stenosis of right M1. Prior to his CVA, patient was very active. Exercised daily. Lives with his spouse in a 2 story home with 3 KEYSHA[address]. First floor set up possible. Independent. Patient was seen and evaluated upon admission. Resting comfortably in bed. In nodistress. States that he was a little more dizzy this morning and nauseous but this improved. Denies chest pain, SOB, fever, chills. Denies significant weakness from this CVA. Endorses slight weakness on the left from previous CVA. No bowel/bladder incontinence. Denies swallowing or speech abnormalities. Tolerating therapy thus far. Interval history: Patient is resting in bed upon returning from therapy. He is alert, pleasant, oriented x 3. Does admit to some dizziness while in therapy earlier which has since resolved. No nausea or vomiting today. He has no headache or vision changes. No new neurological deficits. Head CT results reviewed and discussed with the patient. Will obtain a follow-up CT next week. Patient otherwise denies any complaints or concerns. His vitals remain stable. He is tolerating therapy. Ambulatory functional distances with a walker and CGA. Able to transfer with contact-guard assist Review of Systems Review of Systems All other systems reviewed & are negative unless noted below or in HPI Exam Physical Exam Vital Signs: Temp Pulse Resp BP Pulse Ox O2 Del Method 97.9 F 65 16 131/76 94 L Room Air 09/28/23 05:00 09/28/23 05:00 09/28/23 05:00 09/28/23 05:00 09/28/23 05:00 09/28/23 08:54 Narrative: General: Awake, alert, oriented x3 HENT: Normal to inspection, normocephalic, atraumatic Eyes: PERRL, normal conjunctiva and sclera Neck: Normal ROM, normal visual inspection. Trachea midline. Cardio: Regular heart rate and rhythm Respiratory: Clear to auscultation bilaterally. Normal respiratory effort. No respiratory distress. GI: Abdomen soft, nontender, nondistended, active bowel sounds x4 quadrants Neuro: CN II-XII intact. Strength 5/5, equal bilaterally. Reports some dizziness when out of bed. No headache, vision changes. Extremities: No edema, erythema, cyanosis Psych: Mood and affect appropriate. Normal speech. Objective Labs 09/26/23 06:02 09/26/23 06:02 Labs: Laboratory Results - last 24 hr 09/27/23 09/28/23 16:28 06:22 POC Glucose 104 116 Additional Results Results Comments: I reviewed clinical lab tests, radiology reports and obtained and summated medical records and have ordered follow up lab tests and imaging studies as needed for rehabilitation care. Medications and Allergies Allergies and Active Meds: Allergies atorvastatin Allergy (Mild, Verified 09/27/23 10:22) Muscle Pain Active Medications Generic Name Dose Route Start Last Admin Trade Name Freq PRN Reason Stop Dose Admin Acetaminophen 500 mg 09/25/23 15:43 09/26/23 01:05 Acetaminophen 500 Mg Tablet PO 09/24/24 15:42 500 mg Q4H PRN Administration Pain Al Hydrox/Mg Hydrox/Simethicone 30 ml 09/25/23 15:43 Mag Hydrox/Al Hydrox/Simeth 30 Ml Udc PO 09/24/24 15:42 Q4H PRN Indigestion Aspirin 81 mg 09/26/23 09:00 09/28/23 08:43 Aspirin 81 Mg Tablet.Dr PO 09/25/24 08:59 81 mg DAILY NAYELY Administration Bisacodyl 10 mg 09/25/23 15:43 Bisacodyl 10 Mg Supp.Rect SC 09/24/24 15:42 DAILY PRN Constipation Docusate Sodium 100 mg 09/25/23 15:43 09/28/23 08:43 Docusate 100 Mg Capsule PO 09/24/24 15:42 100 mg BID PRN Administration Constipation Docusate Sodium 283 mg 09/25/23 15:43 Docusate Enema 283 Mg/5 Ml Enema SC 09/24/24 15:42 DAILY PRN Constipation Fish Oil 1,000 mg 09/25/23 21:00 09/28/23 08:43 [place]-3/Fish Oil 1,000 Mg Capsule PO 09/24/24 20:59 1,000 mg BID NAYELY Administration Heparin Sodium (Porcine) 5,000 unit 09/25/23 22:00 09/28/23 06:23 Heparin 5,000 Unit/Ml Vial SUBCUT 09/24/24 21:59 5,000 unit Q8HR NAYELY Administration Lactulose 30 gm 09/25/23 15:43 Lactulose 20 Gm/30 Ml Udc PO 09/24/24 15:42 DAILY PRN Constipation Melatonin 5 mg 09/25/23 22:00 09/27/23 21:38 Melatonin 5 Mg Tablet PO 09/24/24 21:59 5 mg HS NAYELY Administration Metformin HCl 500 mg 09/26/23 17:00 09/27/23 17:13 Metformin 500 Mg Tablet PO 09/25/24 16:59 500 mg DAILY.WITH.SUPPER NAYELY Administration Metoprolol Tartrate 25 mg 09/25/23 21:00 09/28/23 08:43 Metoprolol Tartrate 25 Mg Tablet PO 09/24/24 20:59 25 mg BID NAYELY Administration Ondansetron HCl 4 mg 09/27/23 09:16 09/28/23 08:43 Ondansetron Odt 4 Mg Tab.Rapdis PO 09/26/24 09:15 4 mg Q8HR PRN Administration Nausea And Vomiting Scopolamine 1 each 09/26/23 11:30 09/26/23 11:38 Scopolamine 1 Mg/3 Days Patch TRANSDERML 09/25/24 11:29 1 each Q72H NAYELY Administration Sennosides 2 tab 09/26/23 12:00 Sennosides 8.6 Mg Tablet PO 09/25/24 11:59 DAILY@12 PRN If no BM in 2 days Simvastatin 20 mg 09/27/23 22:00 09/27/23 21:46 Simvastatin *Nf* 20 Mg Tablet PO 09/26/24 21:59 20 mg QHS NAYELY Administration Sodium Chloride 0 ml 09/25/23 15:43 Sodium Chloride 0.9 % 10 Ml Syringe IV-PUSH 09/24/24 15:42 PRN PRN Flush Tamsulosin HCl 0.4 mg 09/25/23 22:00 09/27/23 21:38 Tamsulosin 0.4 Mg Cap.Er.24h PO 09/24/24 21:59 0.4 mg QHS NAYELY Administration Assessment/Plan Assessment/Plan (1) Impaired mobility and activities of daily living: (2) Vertigo: (3) CVA (cerebral vascular accident): (4) History of cardiac catheterization: (5) Hypertension: (6) Hyperlipidemia: Plan This is a 78-year-old male with past medical history of CVA in 2017, HTN, CAD s/p CABG who presents to [facility] for rehab following 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 He has continued impaired mobility and impaired independence with ADLsand IADLs requiring PT/OT/TOP KNITTER 5-7 days/week 3 hours/day to maximize safety and independence with functional ability and self-care. #. 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 We will also work to improve patient's safety awareness during transfers and ambulation. OT for basic ADL retraining (bathing, dressing, toileting, continence, grooming,feeding, transferring), to increase activity tolerance and functional mobility to evaluate for adaptive assistive device. We will work to improve patient's endurance and educate patient on fall prevention and energy conservation techniques-pacing strategies and proper breathing techniques during functional tasks. Patient education Pressure ulcer prophylaxis; encourage mobilization, frequent postural changes, pressure-relief techniques DVT prophylaxis Encourage deep breathing exercise incentive spirometry. Monitor bladder. Toileting schedule. Continue current bladder management, with scans as needed and CIC if needed. Start bowel care program every day to obtain continence, prevent ileus. Maintain fall precautions Gait and balance retraining Provision of the necessary gait aids and functional adaptive equipment to enhance the patient's a functional religion Encourage deep breathing exercises and incentive spirometry RD evaluation Ensure adequate nutrition and hydration Discharge planning. -Continue aspirin, Lipitor for secondary stroke prevention -Scopolamine patch for dizziness ? Repeat head CT for morning dizziness. #. HTN -Continue lopressor 25 mg BID #. Hx of CAD s/p CABG -Continue aspirin, statin, lopressor as above #. TIIDM -Continue metformin 500 mg daily Updates/Medical Issues -CT head without contrast from yesterday demonstrates prior infarct and hemorrhage involving left cerebellar hemisphere grossly unchanged in configuration when compared to prior MRI. Radiology is recommending follow-up CT or MRI to evaluate for progression. Repeat imaging ordered. -Still with some dizziness with movement, although not as pronounced. Denies nausea or vomiting today. Monitor symptoms closely. Stat imaging if worsening symptoms. Hospitalist to assist with management of comorbid medical conditions #. Pain control: Tylenol PRN #. Bowel and bladder: Continent of Bowel/bladder #. Skin: (pressure ulcer/surgical site) No pressure injuries on admission #. Sleep: Optimize sleep/wake cycle. Melatonin DVT prophylaxis: Heparin 5000 units q8hr Functional status: Impaired. Limited by pain, weakness Discharge planning: ELOS 1-2 weeks I spent greater than 15 minutes for services, including [id number] encounter with the patient, discussion of the case, plan of care, and exam; and [id number] activities, such as reviewing pertinent email production consultant documentation, recent therapy notes, laboratory and radiology studies, and discussion of case with care team including physician, nursing, community case manager, and therapists. More than 50 % of time was spent on patient/family counseling or coordination ofcare. <Statement entered by Donovan La MD - 10/01/23 09:30> This documentation has been reviewed and approved. Documented By: Tracy Fernandez APRN 09/28/23 1 241 Signed By: <Electronically signed by NAN Fernandez> 09/28/23 1250 <Electronically signed by Donovan La MD> 10/01/23 0930 [facility] Work Phone: 1(752) 626-306702-19-2024 Progress note Author Donovan La [facility] October 01, 2023 9:30am Note Date/Time September 29, 2023 11:26am [facility] [address] [place] [address] Physiatry(Rehab) Progress Note Signed Patient: Janice Shultz MR#: [id number] : 1945 Acct:[id number] Age/Sex: 78 / M Adm Date: 4 Loc: Room: [address] [place] [address] Type: ADM IN Attending Dr: Donovan La MD Copies to: ~ Date of Service: 09/29/2023 Subjective Subjective Narrative: Mr. Shultz is a 78 year old male with PMH previous CVA in 2017, HTN, CAD and CABG who presents to [facility] rehab following acute hospitalization for left PICA stroke with hemorrhagic transformation. The patient initially presents to [facility] for evaluation for 5 days vertigo with N/V, blurred vision, and gait instability. He reportedly had a fall1 day prior to admission due to vertigo. Non contrast CTH was done and demonstrated evidence of hemorrhage in the PICA territory. Patient was transferred to [facility]. 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 Neurosurgery was consulted and recommended no surgical intervention. CTA demonstrated occlusion of left V1 and moderate stenosis of right M1. Prior to his CVA, patient was very active. Exercised daily. Lives with his spouse in a 2 story home with 3 KEYSHA[address]. First floor set up possible. Independent. Patient was seen and evaluated upon admission. Resting comfortably in bed. In nodistress. States that he was a little more dizzy this morning and nauseous but this improved. Denies chest pain, SOB, fever, chills. Denies significant weakness from this CVA. Endorses slight weakness on the left from previous CVA. No bowel/bladder incontinence. Denies swallowing or speech abnormalities. Tolerating therapy thus far. Interval history: Patient was seen and evaluated at the bedside. He has had another episode of vertigo associated with nausea and vomiting. He is feeling better now and denies any dizziness or lightheadedness while sitting up in the chair. No otherneurological deficits patient is agreeable to trialing meclizine for his symptoms. I did also contact his to discuss head CT results. She would like to transition patient's neurological care to [place]. Will contact KAREN Rodriguez to see if able to accept. Review of Systems Review of Systems All other systems reviewed & are negative unless noted below or in HPI Exam Physical Exam Vital Signs: Temp Pulse Resp BP Pulse Ox O2 Del Method 98 F 67 18 103/67 94 L Room Air 09/29/23 05:00 09/29/23 08:46 09/29/23 05:00 09/29/23 08:46 09/29/23 08:46 09/29/23 08:46 Narrative: General: Awake, alert, oriented x3 HENT: Normal to inspection, normocephalic, atraumatic Eyes: PERRL, normal conjunctiva and sclera Neck: Normal ROM, normal visual inspection. Trachea midline. Cardio: Regular heart rate and rhythm Respiratory: Clear to auscultation bilaterally. Normal respiratory effort. No respiratory distress. GI: Abdomen soft, nontender, nondistended, active bowel sounds x4 quadrants Neuro: CN II-XII intact. Strength 5/5, equal bilaterally. Reports some dizziness when out of bed. No headache, vision changes. Extremities: No edema, erythema, cyanosis Psych: Mood and affect appropriate. Normal speech. Objective Labs 09/26/23 06:02 09/26/23 06:02 Labs: Laboratory Results - last 24 hr 09/28/23 09/29/23 16:12 05:44 POC Glucose 96 99 Additional Results Results Comments: I reviewed clinical lab tests, radiology reports and obtained and summated medical records and have ordered follow up lab tests and imaging studies as needed for rehabilitation care. Medications and Allergies Allergies and Active Meds: Allergies atorvastatin Allergy (Mild, Verified 09/27/23 10:22) Muscle Pain Active Medications Generic Name Dose Route Start Last Admin Trade Name Iveth PRN Reason Stop Dose Admin Acetaminophen 500 mg 09/25/23 15:43 09/28/23 21:50 Acetaminophen 500 Mg Tablet PO 09/24/24 15:42 500 mg Q4H PRN Administration Pain Al Hydrox/Mg Hydrox/Simethicone 30 ml 09/25/23 15:43 Mag Hydrox/Al Hydrox/Simeth 30 Ml Udc PO 09/24/24 15:42 Q4H PRN Indigestion Aspirin 81 mg 09/26/23 09:00 09/29/23 08:46 Aspirin 81 Mg Tablet.Dr PO 09/25/24 08:59 81 mg DAILY NAYELY Administration Bisacodyl 10 mg 09/25/23 15:43 Bisacodyl 10 Mg Supp.Rect SC 09/24/24 15:42 DAILY PRN Constipation Docusate Sodium 100 mg 09/25/23 15:43 09/28/23 08:43 Docusate 100 Mg Capsule PO 09/24/24 15:42 100 mg BID PRN Administration Constipation Docusate Sodium 283 mg 09/25/23 15:43 Docusate Enema 283 Mg/5 Ml Enema SC 09/24/24 15:42 DAILY PRN Constipation Fish Oil 1,000 mg 09/25/23 21:00 09/29/23 08:46 [place]-3/Fish Oil 1,000 Mg Capsule PO 09/24/24 20:59 1,000 mg BID NAYELY Administration Heparin Sodium (Porcine) 5,000 unit 09/25/23 22:00 09/29/23 05:31 Heparin 5,000 Unit/Ml Vial SUBCUT 09/24/24 21:59 5,000 unit Q8HR NAYELY Administration Lactulose 30 gm 09/25/23 15:43 09/28/23 16:51 Lactulose 20 Gm/30 Ml Udc PO 09/24/24 15:42 30 gm DAILY PRN Administration Constipation Melatonin 5 mg 09/25/23 22:00 09/28/23 20:43 Melatonin 5 Mg Tablet PO 09/24/24 21:59 5 mg HS NAYELY Administration Metformin HCl 500 mg 09/26/23 17:00 09/28/23 16:51 Metformin 500 Mg Tablet PO 09/25/24 16:59 500 mg DAILY.WITH.SUPPER NAYELY Administration Metoprolol Tartrate 25 mg 09/25/23 21:00 09/29/23 08:47 Metoprolol Tartrate 25 Mg Tablet PO 09/24/24 20:59 Not Given BID NAYELY Ondansetron HCl 4 mg 09/27/23 09:16 09/28/23 08:43 Ondansetron Odt 4 Mg Tab.Rapdis PO 09/26/24 09:15 4 mg Q8HR PRN Administration Nausea And Vomiting Scopolamine 1 each 09/26/23 11:30 09/26/23 11:38 Scopolamine 1 Mg/3 Days Patch TRANSDERML 09/25/24 11:29 1 each Q72H NAYELY Administration Sennosides 2 tab 09/26/23 12:00 Sennosides 8.6 Mg Tablet PO 09/25/24 11:59 DAILY@12 PRN If no BM in 2 days Simvastatin 20 mg 09/27/23 22:00 09/28/23 22:34 Simvastatin *Nf* 20 Mg Tablet PO 09/26/24 21:59 20 mg QHS NAYELY Administration Sodium Chloride 0 ml 09/25/23 15:43 Sodium Chloride 0.9 % 10 Ml Syringe IV-PUSH 09/24/24 15:42 PRN PRN Flush Tamsulosin HCl 0.4 mg 09/25/23 22:00 09/28/23 20:44 Tamsulosin 0.4 Mg Cap.Er.24h PO 09/24/24 21:59 0.4 mg QHS NAYELY Administration Assessment/Plan Assessment/Plan (1) Impaired mobility and activities of daily living: (2) Vertigo: (3) CVA (cerebral vascular accident): (4) History of cardiac catheterization: (5) Hypertension: (6) Hyperlipidemia: Plan This is a 78-year-old male with past medical history of CVA in 2017, HTN, CAD s/p CABG who presents to [facility] for rehab following 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 He has continued impaired mobility and impaired independence with ADLsand IADLs requiring PT/OT/TOP KNITTER 5-7 days/week 3 hours/day to maximize safety and independence with functional ability and self-care. #. 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 We will also work to improve patient's safety awareness during transfers and ambulation. OT for basic ADL retraining (bathing, dressing, toileting, continence, grooming,feeding, transferring), to increase activity tolerance and functional mobility to evaluate for adaptive assistive device. We will work to improve patient's endurance and educate patient on fall prevention and energy conservation techniques-pacing strategies and proper breathing techniques during functional tasks. Patient education Pressure ulcer prophylaxis; encourage mobilization, frequent postural changes, pressure-relief techniques DVT prophylaxis Encourage deep breathing exercise incentive spirometry. Monitor bladder. Toileting schedule. Continue current bladder management, with scans as needed and CIC if needed. Start bowel care program every day to obtain continence, prevent ileus. Maintain fall precautions Gait and balance retraining Provision of the necessary gait aids and functional adaptive equipment to enhance the patient's a functional religion Encourage deep breathing exercises and incentive spirometry RD evaluation Ensure adequate nutrition and hydration Discharge planning. -Continue aspirin, Lipitor for secondary stroke prevention -Scopolamine patch for dizziness ? Repeat head CT for morning dizziness. #. HTN -Continue lopressor 25 mg BID #. Hx of CAD s/p CABG -Continue aspirin, statin, lopressor as above #. TIIDM -Continue metformin 500 mg daily Updates/Medical Issues -Continued complaints of occasional vertigo-like sensation associated with nausea and vomiting. Will start meclizine 25 mg tid for symptoms. Monitor closely. -Repeat CT on Sunday -CBC and BMP tomorrow. Hospitalist to assist with management of comorbid medical conditions #. Pain control: Tylenol PRN #. Bowel and bladder: Continent of Bowel/bladder #. Skin: (pressure ulcer/surgical site) No pressure injuries on admission #. Sleep: Optimize sleep/wake cycle. Melatonin DVT prophylaxis: Heparin 5000 units q8hr Functional status: Impaired. Limited by pain, weakness Discharge planning: ELOS 1-2 weeks I spent greater than 15 minutes for services, including [id number] encounter with the patient, discussion of the case, plan of care, and exam; and vgfvocg-cz-[id number] activities, such as reviewing pertinent email production consultant documentation, recent therapy notes, laboratory and radiology studies, and discussion of case with care team including physician, nursing, community case manager, and therapists. More than 50 % of time was spent on patient/family counseling or coordination ofcare. <Statement entered by Donovan La MD - 10/01/23 09:29> This documentation has been reviewed and approved. Documented By: Tracy Fernandez APRN 09/29/23 1 119 Signed By: <Electronically signed by NAN Fenrandez> 09/29/23 1126 <Electronically signed by Donovan La MD> 10/01/23 0930 [facility] Work Phone: [phone]) 710-673102-15-2024 Consult note Author Adrinaa Ling [facility] September 27, 2023 8:06pm Note Date/Time September 27, 2023 5:55pm [facility] [address] [place] [address] Hospitalist Consult Note Signed Patient: Janice Shultz MR#: [id number] : 1945 Acct:[id number] Age/Sex: 78 / M Adm Date: 4 Loc: Room: [address] [place] [address] Type: ADM IN Attending Dr: Donovan La MD Copies to: MD Sherif Mercado MD Lynn A Stackhouse-Roby, NAN Ling MD~ HPI DATE OF CONSULTATION: 09/26/23 REQUESTING PROVIDER: Donovan La Consult Narrative Reason for Consult: Diabetes HPI: 78-year-old male past medical history significant for CAD history PA and stents,hypertension, hyperlipidemia, diabetes, CVA, BPH. Patient initially presented to [facility] with visual disturbance, vertigo nausea and vomiting, gait instability with fall 1 day prior to presentation. Workup demonstrated evidenceof hemorrhage and peaked territory on noncontrast CT. Patient was urgently transferred to [facility] for further management. MRI of the brain there confirmed [place] ischemic stroke with hemorrhagic conversion. The patient was seen by neurosurgical services while there with no interventions recommended. CTA did show evidence of occluded left V1 and moderate stenosis of right M1. Hewas seen by therapy services and ultimately transferred to the inpatient rehab unit [facility] September 26. Hospitalist team is now consulted for ongoing management of diabetes. Patient seen and examined. Offers no significant complaints other than some dizziness at this time. Denies chest pain or palpitations. No cough, dyspnea, or pain with inspiration. No abdominal pain or indigestion, constipation or diarrhea, nausea or vomiting. No dysuria or retention. No headache. No feversor chills. Review of Systems Review of Systems All other systems reviewed & are negative unless noted below or in HPI [facility] Medical History (Updated 09/27/23 @ 18:01 by Jessie Andrea APRN) CAD (coronary artery disease) Arthritis CVA (cerebral vascular accident) x2 Hyperlipidemia Hypertension Myocardial infarct Problem List clean-up per request of Phys. EHR Cmte Surgical History (Updated 09/27/23 @ 18:01 by Jessie Andrea APRN) History of orthopedic surgery rt wrist repair Problem List clean-up per request of Phys. EHR Cmte History of lumbosacral spine surgery History of hernia repair History of cardiac catheterization 3 stents Family History Mother Stroke Brother CAD (coronary artery disease) Brother CAD (coronary artery disease) Brother Heart disease Legacy FamHx Relation: Brother(s) Father Family history of lung cancer Mother History of stroke Legacy FamHx Problem: Diagnosed with Stroke 84 yrs Social History Smoking Status: Never smoker Substance Use Type: None Meds Medications and Allergies Allergies atorvastatin Allergy (Mild, Verified 09/27/23 10:22) Muscle Pain Home Medications metoprolol tartrate 25 mg tablet 25 mg PO BID 05/04/20 [History Confirmed 09/25/23] simvastatin 20 mg tablet 20 mg PO QHS 05/04/20 [History Confirmed 09/27/23] aspirin 81 mg tablet,delayed release (Deirdre Low Dose Aspirin) 81 mg PO DAILY 05/10/20 [History Confirmed 09/25/23] melatonin 5 mg capsule 5 mg PO HS 09/25/23 [History Confirmed 09/25/23] metformin 500 mg tablet 500 mg PO DAILY 09/25/23 [History Confirmed 09/25/23] omega-3 acid ethyl esters 1 gram capsule (Lovaza) 1 cap PO BID 09/25/23 [History Confirmed 09/25/23] rosuvastatin 40 mg tablet 40 mg PO HS 09/25/23 [History Confirmed 09/27/23] scopolamine base 1 mg over 3 days transdermal patch 1 patch transdermal Q72HR 09/25/23 [History Confirmed 09/25/23] tamsulosin 0.4 mg capsule 0.4 mg PO QHS 09/25/23 [History Confirmed 09/25/23] Active Medications: Active Medications Generic Name Dose Route Start Last Admin Trade Name Freq PRN Reason Stop Dose Admin Acetaminophen 500 mg 09/25/23 15:43 09/26/23 01:05 Acetaminophen 500 Mg Tablet PO 09/24/24 15:42 500 mg Q4H PRN Administration Pain Al Hydrox/Mg Hydrox/Simethicone 30 ml 09/25/23 15:43 Mag Hydrox/Al Hydrox/Simeth 30 Ml Udc PO 09/24/24 15:42 Q4H PRN Indigestion Aspirin 81 mg 09/26/23 09:00 09/26/23 08:42 Aspirin 81 Mg Tablet.Dr PO 09/25/24 08:59 81 mg DAILY NAYELY Administration Atorvastatin Calcium 80 mg 09/25/23 22:00 09/25/23 21:13 Atorvastatin 80 Mg Tablet PO 09/24/24 21:59 80 mg HS NAYELY Administration Bisacodyl 10 mg 09/25/23 15:43 Bisacodyl 10 Mg Supp.Rect SC 09/24/24 15:42 DAILY PRN Constipation Docusate Sodium 100 mg 09/25/23 15:43 Docusate 100 Mg Capsule PO 09/24/24 15:42 BID PRN Constipation Docusate Sodium 283 mg 09/25/23 15:43 Docusate Enema 283 Mg/5 Ml Enema SC 09/24/24 15:42 DAILY PRN Constipation Fish Oil 1,000 mg 09/25/23 21:00 09/26/23 08:42 [place]-3/Fish Oil 1,000 Mg Capsule PO 09/24/24 20:59 1,000 mg BID NAYELY Administration Heparin Sodium (Porcine) 5,000 unit 09/25/23 22:00 09/26/23 05:44 Heparin 5,000 Unit/Ml Vial SUBCUT 09/24/24 21:59 5,000 unit Q8HR NAYELY Administration Lactulose 30 gm 09/25/23 15:43 Lactulose 20 Gm/30 Ml Udc PO 09/24/24 15:42 DAILY PRN Constipation Melatonin 5 mg 09/25/23 22:00 09/25/23 21:13 Melatonin 5 Mg Tablet PO 09/24/24 21:59 5 mg HS NAYELY Administration Metformin HCl 500 mg 09/26/23 17:00 Metformin 500 Mg Tablet PO 09/25/24 16:59 DAILY.WITH.SUPPER NAYELY Metoprolol Tartrate 25 mg 09/25/23 21:00 09/26/23 08:42 Metoprolol Tartrate 25 Mg Tablet PO 09/24/24 20:59 Not Given BID [facility] Scopolamine 1 each 09/28/23 09:00 Scopolamine 1 Mg/3 Days Patch TRANSDERML 09/27/24 08:59 Q72HR [facility] Sennosides 2 tab 09/26/23 12:00 Sennosides 8.6 Mg Tablet PO 09/25/24 11:59 DAILY@12 PRN If no BM in 2 days Sodium Chloride 0 ml 09/25/23 15:43 Sodium Chloride 0.9 % 10 Ml Syringe IV-PUSH 09/24/24 15:42 PRN PRN Flush Tamsulosin HCl 0.4 mg 09/25/23 22:00 09/25/23 21:13 Tamsulosin 0.4 Mg Cap.Er.24h PO 09/24/24 21:59 0.4 mg QHS [facility] Administration Exam Physical Exam Vital Signs: Temp Pulse Resp BP Pulse Ox O2 Del Method 97.6 F 63 18 109/74 95 Room Air 09/26/23 05:00 09/26/23 05:00 09/26/23 05:00 09/26/23 08:43 09/26/23 05:00 09/26/23 08:58 Narrative: CONST- alert, in bed, no acute distress, frail elderly HEAD- normocephalic and atraumatic EENT- sclera nonicteric and conjunctiva nonerythemic, moist oral mucosa, pharynxclear NECK- supple, no cervical lymphadenopathy CARDIAC- RRR no abnormal heart tones PULM- diminished without wheeze or rhonchi, RA, no accessory muscle use or coughnoted ABD- S/NT, NABS EXTREM- no edema BLE, calves nontender SKIN- W/D, good turgor MS- MAEx4 spontaneously with equal strength NEURO- A&Ox3, speech clear and tongue midline, equal facial symmetry PSYCH-mood and behavior appropriate Results Lab Results Labs: Laboratory Results - last 72 hr 09/26/23 06:02: Corrected WBC 9.1, Uncorrected WBC Count 9.1, RBC 4.81, Hgb 13.7, Hct 40.4, MCV 84.0, MCH 28.5, MCHC 33.9, RDW 13.5, Plt Count 244, MPV 8.4,Neut % (Auto) 68.0, Lymph % (Auto) 19.4, Pickett % (Auto) 9.4, Eos % (Auto) 2.1, Baso % (Auto) 1.1, Nucleat RBC Rel Count 0.0, Neut # (Auto) 6.2, Lymph # (Auto) 1.8, Pickett # (Auto) 0.9 H, Eos # (Auto) 0.2, Baso # (Auto) 0.1, PHA Creatinine Clear 71.97, Sodium 136, Potassium 3.9, Chloride 104, Carbon Dioxide 23.1, AnionGap 12.8, BUN 23, Creatinine 0.93, Est GFR (CKD-EPI) > 60.0, Glucose 132 H, Calcium 8.8, Total Bilirubin 0.7, AST 22, ALT 48, Alkaline Phosphatase 47, TotalProtein 6.9, Albumin 3.7, Globulin 3.2, Albumin/Globulin Ratio 1.2, Prealbumin 22.8 09/26/23 05:47: POC Glucose 125 09/25/23 16:25: POC Glucose 130 Assessment & Plan Assessment/Plan (1) Vertigo: (2) Hypertension: (3) Hyperlipidemia: (4) CVA (cerebral vascular accident): (5) CAD (coronary artery disease): Plan 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 Diabetes?metformin 2. Hypertension, CAD hx PA/ stents, HLD?metoprolol. BPs reviewed and controlled. Fish oil, ASA 3. BPH?tamsulosin, monitor for retention Documented By: Jessie Andrea APRN 09/13 12/04 1800 Signed By: <Electronically signed by NAN Andrea> 09/27/231804 <Electronically signed by Adriana Ling MD> 09/27/232005 [facility] Work Phone: [phone] Progress note Author Donovan La [facility] September 27, 2023 12:57pm Note Date/Time September 27, 2023 10:58am [facility] [address] [place] [address] Physiatry(Rehab) Progress Note Signed Patient: Janice Shultz MR#: [id number] : 1945 Acct:[id number] Age/Sex: 78 / M Adm Date: 4 Loc: Room: 5S1964-2 Type: ADM IN Attending Dr: Donovan La MD Copies to: ~ <Toni Orozco MD, RES - Last Filed: 09/27/23 10:58> Date of Service: 09/27/2023 Subjective <Toni Orozco MD, RES - Last Filed: 09/27/23 10:58> Subjective Narrative: Mr. Shultz is a 78 year old male with PMH previous CVA in 2017, HTN, CAD and CABG who presents to [facility] rehab following acute hospitalization for left PICA stroke with hemorrhagic transformation. The patient initially presents to [facility] for evaluation for 5 days vertigo with N/V, blurred vision, and gait instability. He reportedly had a fall1 day prior to admission due to vertigo. Non contrast CTH was done and demonstrated evidence of hemorrhage in the PICA territory. Patient was transferred to [facility]. 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 Neurosurgery was consulted and recommended no surgical intervention. CTA demonstrated occlusion of left V1 and moderate stenosis of right M1. Prior to his CVA, patient was very active. Exercised daily. Lives with his spouse in a 2 story home with 3 [address]. First floor set up possible. Independent. Patient was seen and evaluated upon admission. Resting comfortably in bed. In nodistress. States that he was a little more dizzy this morning and nauseous but this improved. Denies chest pain, SOB, fever, chills. Denies significant weakness from this CVA. Endorses slight weakness on the left from previous CVA. No bowel/bladder incontinence. Denies swallowing or speech abnormalities. Tolerating therapy thus far. Interval history: Patient seen and examined at bedside. This morning during OT he became very dizzy. When he returned to his room he tried to eat and vomited. He received Zofran for this. This dizziness is similar in nature to his initial stroke. Ithas improved throughout the morning but has not completely resolved. He denies any other symptoms or deficits. Aside from this morning he has been eating wellon the unit. He has not been sleeping well, which is typical for him in the hospital. He denies any pain. No other complaints at this time. Exam <Toni Orozco MD, RES - Last Filed: 09/27/23 10:58> Physical Exam Vital Signs: Temp Pulse Resp BP Pulse Ox O2 Del Method 98.4 F 70 16 134/82 97 Room Air 09/27/23 05:00 09/27/23 05:00 09/27/23 05:00 09/27/23 05:00 09/27/23 05:00 09/27/23 09:02 Narrative: General: Awake, A&O x 3, pleasant, cooperative, well nourished. Resting comfortably in bed HENT: NC, AT Eyes: No scleral icterus Neck: Supple Cardio: RRR, no murmurs, rubs or gallops. Extremities well perfused Respiratory: CTAB, no wheezes rhonchi or rales. No evidence of respiratory distress GI: Soft, nontender, nondistended Neuro: CN II-XII intact. Strength 5/5 right upper and lower extremities. Strength 5/5 left upper and lower extremities. Moves all extremities spontaneously. Sensation intact bilateral lower extremities. Extremities: No edema, erythema, cyanosis Psych: Affect, speech and movements normal. Mood congruent Objective <Toni Orozco MD, RES - Last Filed: 09/27/23 10:58> Labs 09/26/23 06:02 09/26/23 06:02 Labs: Laboratory Results - last 24 hr 09/26/23 09/27/23 16:11 06:50 POC Glucose 175 114 Medications and Allergies Allergies and Active Meds: Allergies atorvastatin Allergy (Mild, Verified 09/27/23 10:22) Muscle Pain Active Medications Generic Name Dose Route Start Last Admin Trade Name Freq PRN Reason Stop Dose Admin Acetaminophen 500 mg 09/25/23 15:43 09/26/23 01:05 Acetaminophen 500 Mg Tablet PO 09/24/24 15:42 500 mg Q4H PRN Administration Pain Al Hydrox/Mg Hydrox/Simethicone 30 ml 09/25/23 15:43 Mag Hydrox/Al Hydrox/Simeth 30 Ml Udc PO 09/24/24 15:42 Q4H PRN Indigestion Aspirin 81 mg 09/26/23 09:00 09/27/23 08:10 Aspirin 81 Mg Tablet.Dr PO 09/25/24 08:59 81 mg DAILY NAYELY Administration Bisacodyl 10 mg 09/25/23 15:43 Bisacodyl 10 Mg Supp.Rect SC 09/24/24 15:42 DAILY PRN Constipation Docusate Sodium 100 mg 09/25/23 15:43 Docusate 100 Mg Capsule PO 09/24/24 15:42 BID PRN Constipation Docusate Sodium 283 mg 09/25/23 15:43 Docusate Enema 283 Mg/5 Ml Enema SC 09/24/24 15:42 DAILY PRN Constipation Fish Oil 1,000 mg 09/25/23 21:00 09/27/23 08:10 [place]-3/Fish Oil 1,000 Mg Capsule PO 09/24/24 20:59 1,000 mg BID NAYELY Administration Heparin Sodium (Porcine) 5,000 unit 09/25/23 22:00 09/27/23 06:15 Heparin 5,000 Unit/Ml Vial SUBCUT 09/24/24 21:59 5,000 unit Q8HR NAYELY Administration Lactulose 30 gm 09/25/23 15:43 Lactulose 20 Gm/30 Ml Udc PO 09/24/24 15:42 DAILY PRN Constipation Melatonin 5 mg 09/25/23 22:00 09/26/23 20:13 Melatonin 5 Mg Tablet PO 09/24/24 21:59 5 mg HS NAYELY Administration Metformin HCl 500 mg 09/26/23 17:00 09/26/23 17:50 Metformin 500 Mg Tablet PO 09/25/24 16:59 500 mg DAILY.WITH.SUPPER NAYELY Administration Metoprolol Tartrate 25 mg 09/25/23 21:00 09/27/23 08:10 Metoprolol Tartrate 25 Mg Tablet PO 09/24/24 20:59 25 mg BID NAYELY Administration Ondansetron HCl 4 mg 09/27/23 09:16 09/27/23 09:21 Ondansetron Odt 4 Mg Tab.Rapdis PO 09/26/24 09:15 4 mg Q8HR PRN Administration Nausea And Vomiting Scopolamine 1 each 09/26/23 11:30 09/26/23 11:38 Scopolamine 1 Mg/3 Days Patch TRANSDERML 09/25/24 11:29 1 each Q72H NAYELY Administration Sennosides 2 tab 09/26/23 12:00 Sennosides 8.6 Mg Tablet PO 09/25/24 11:59 DAILY@12 PRN If no BM in 2 days Simvastatin 20 mg 09/27/23 22:00 Simvastatin *Nf* 20 Mg Tablet PO 09/26/24 21:59 QHS NAYELY Sodium Chloride 0 ml 09/25/23 15:43 Sodium Chloride 0.9 % 10 Ml Syringe IV-PUSH 09/24/24 15:42 PRN PRN Flush Tamsulosin HCl 0.4 mg 09/25/23 22:00 09/26/23 20:12 Tamsulosin 0.4 Mg Cap.Er.24h PO 09/24/24 21:59 0.4 mg QHS NAYELY Administration Assessment/Plan <Toni Orozco MD, RES - Last Filed: 09/27/23 10:58> Assessment/Plan (1) Impaired mobility and activities of daily living: (2) Vertigo: (3) CVA (cerebral vascular accident): (4) History of cardiac catheterization: (5) Hypertension: (6) Hyperlipidemia: Plan This is a 78-year-old male with past medical history of CVA in 2017, HTN, CAD s/p CABG who presents to [facility] IRF for rehab following 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 He has continued impaired mobility and impaired independence with ADLsand IADLs requiring PT/OT/TOP KNITTER 5-7 days/week 3 hours/day to maximize safety and independence with functional ability and self-care. #. 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 We will also work to improve patient's safety awareness during transfers and ambulation. OT for basic ADL retraining (bathing, dressing, toileting, continence, grooming,feeding, transferring), to increase activity tolerance and functional mobility to evaluate for adaptive assistive device. We will work to improve patient's endurance and educate patient on fall prevention and energy conservation techniques-pacing strategies and proper breathing techniques during functional tasks. Patient education Pressure ulcer prophylaxis; encourage mobilization, frequent postural changes, pressure-relief techniques DVT prophylaxis Encourage deep breathing exercise incentive spirometry. Monitor bladder. Toileting schedule. Continue current bladder management, with scans as needed and CIC if needed. Start bowel care program every day to obtain continence, prevent ileus. Maintain fall precautions Gait and balance retraining Provision of the necessary gait aids and functional adaptive equipment to enhance the patient's a functional religion Encourage deep breathing exercises and incentive spirometry RD evaluation Ensure adequate nutrition and hydration Discharge planning. -Continue aspirin, Lipitor for secondary stroke prevention -Scopolamine patch for dizziness ? Repeat head CT for morning dizziness. #. HTN -Continue lopressor 25 mg BID #. Hx of CAD s/p CABG -Continue aspirin, statin, lopressor as above #. TIIDM -Continue metformin 500 mg daily Updates/Medical Issues -Continue management as outlined above -Admission labs and vitals reviewed. Wnl. Trend PRN Hospitalist to assist with management of comorbid medical conditions #. Pain control: Tylenol PRN #. Bowel and bladder: Continent of Bowel/bladder #. Skin: (pressure ulcer/surgical site) No pressure injuries on admission #. Sleep: Optimize sleep/wake cycle. Melatonin DVT prophylaxis: Heparin 5000 units q8hr Functional status: Impaired. Limited by pain, weakness Discharge planning: ELOS 1-2 weeks I completed a substantive portion of this encounter, the medical decision makingportion of this note in its entirety, including Allied health note review, nursing note review, email production consultant note review, discussion with nursing and case management, and more than 50% of my time was spent on counseling and coordination of care, time spent 70 minutes Patient was personally seen by me, Dr. La, on the day of encounter, reviewed the history and the relevant portions of the chart, including current orders, allied health and email production consultant notes, labs/imaging and performed mims elements of exam and I formulated the plan of care and facilitated the medical decision making. <Donovan La MD - Last Filed: 09/27/23 12:57> Assessment/Plan (1) Impaired mobility and activities of daily living: (2) Vertigo: (3) CVA (cerebral vascular accident): (4) History of cardiac catheterization: (5) Hypertension: (6) Hyperlipidemia: Plan This is a 78-year-old male with past medical history of CVA in 2017, HTN, CAD s/p CABG who presents to [facility] for rehab following 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 He has continued impaired mobility and impaired independence with ADLsand IADLs requiring PT/OT/TOP KNITTER 5-7 days/week 3 hours/day to maximize safety and independence with functional ability and self-care. #. 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 We will also work to improve patient's safety awareness during transfers and ambulation. OT for basic ADL retraining (bathing, dressing, toileting, continence, grooming,feeding, transferring), to increase activity tolerance and functional mobility to evaluate for adaptive assistive device. We will work to improve patient's endurance and educate patient on fall prevention and energy conservation techniques-pacing strategies and proper breathing techniques during functional tasks. Patient education Pressure ulcer prophylaxis; encourage mobilization, frequent postural changes, pressure-relief techniques DVT prophylaxis Encourage deep breathing exercise incentive spirometry. Monitor bladder. Toileting schedule. Continue current bladder management, with scans as needed and CIC if needed. Start bowel care program every day to obtain continence, prevent ileus. Maintain fall precautions Gait and balance retraining Provision of the necessary gait aids and functional adaptive equipment to enhance the patient's a functional religion Encourage deep breathing exercises and incentive spirometry RD evaluation Ensure adequate nutrition and hydration Discharge planning. -Continue aspirin, Lipitor for secondary stroke prevention -Scopolamine patch for dizziness ? Repeat head CT for morning dizziness. #. HTN -Continue lopressor 25 mg BID #. Hx of CAD s/p CABG -Continue aspirin, statin, lopressor as above #. TIIDM -Continue metformin 500 mg daily Updates/Medical Issues -Continue management as outlined above -Admission labs and vitals reviewed. Wnl. Trend PRN Hospitalist to assist with management of comorbid medical conditions #. Pain control: Tylenol PRN #. Bowel and bladder: Continent of Bowel/bladder #. Skin: (pressure ulcer/surgical site) No pressure injuries on admission #. Sleep: Optimize sleep/wake cycle. Melatonin DVT prophylaxis: Heparin 5000 units q8hr Functional status: Impaired. Limited by pain, weakness Discharge planning: ELOS 1-2 weeks I completed a substantive portion of this encounter, the medical decision makingportion of this note in its entirety, including Allied health note review, nursing note review, email production consultant note review, discussion with nursing and case management, and more than 50% of my time was spent on counseling and coordination of care, time spent 30 minutes Patient was personally seen by me, Dr. La, on the day of encounter, reviewed the history and the relevant portions of the chart, including current orders, allied health and email production consultant notes, labs/imaging and performed mims elements of exam and I formulated the plan of care and facilitated the medical decision making. Agree with above. Repeat CT head today for f/u but also due to some worsening dizziness. Change atorvastatin to simvastatin as patient reports significant muscle pain with atorvastatin. Documented By: Toni Orozco MD, RES 09/27/23 1053 Signed By: <Electronically signed by RES Toni Orozco> 09/27/23 1058 <Electronically signed by Donovan La MD> 09/27/[address] [place] [address] Work Phone: [phone] History of Present illness Narrative* Anel Llamas RN - 09/26/2023 3:19 PM EST error documented in this encounterProMedica Fostoria Community HospitalUCloud Information Technology [facility] [id number] History and physical note Author Donovan La [facility] September 26, 2023 12:12pm Note Date/Time September 26, 2023 10:24am [facility] [address] [place] [address] Physiatry (Rehab) H&P Signed Patient: Janice Shultz MR#: [id number] : 1945 Acct:[id number] Age/Sex: 78 / M Adm Date: 4 Loc: 5T Room: 4U5312-5 Type: ADM IN Attending Dr: Donovan La MD Copies to: MD Sherif Mercado MD~ Date of Service: 09/26/2023 HPI The patient was seen and examined on: 09/26/23 History of Present Illness: Mr. Shultz is a 78 year old male with PMH previous CVA in 2017, HTN, CAD and CABG who presents to [facility] rehab following acute hospitalization for left PICA stroke with hemorrhagic transformation. The patient initially presents to [facility] for evaluation for 5 days vertigo with N/V, blurred vision, and gait instability. He reportedly had a fall1 day prior to admission due to vertigo. Non contrast CTH was done and demonstrated evidence of hemorrhage in the PICA territory. Patient was transferred to [facility]. 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 Neurosurgery was consulted and recommended no surgical intervention. CTA demonstrated occlusion of left V1 and moderate stenosis of right M1. Prior to his CVA, patient was very active. Exercised daily. Lives with his spouse in a 2 story home with 3 [address]SHA[address]. First floor set up possible. Independent. Patient was seen and evaluated upon admission. Resting comfortably in bed. In nodistress. States that he was a little more dizzy this morning and nauseous but this improved. Denies chest pain, SOB, fever, chills. Denies significant weakness from this CVA. Endorses slight weakness on the left from previous CVA. No bowel/bladder incontinence. Denies swallowing or speech abnormalities. Tolerating therapy thus far. [facility] Medical History (Updated 09/26/23 @ 12:06 by Donovan La MD) Arthritis Problem List clean-up per request of Phys. EHR Cmte CVA (cerebral vascular accident) x2 Problem List clean-up per request of Phys. EHR Cmte Hyperlipidemia Problem List clean-up per request of Phys. EHR Cmte Hypertension Problem List clean-up per request of Phys. EHR Cmte Myocardial infarct Problem List clean-up per request of Phys. EHR Cmte Surgical History (Updated 09/26/23 @ 12:06 by Donovan La MD) History of orthopedic surgery rt wrist repair Problem List clean-up per request of Phys. EHR Cmte History of lumbosacral spine surgery Problem List clean-up per request of Phys. EHR Cmte History of hernia repair Problem List clean-up per request of Phys. EHR Cmte History of cardiac catheterization 3 stents Problem List clean-up per request of Phys. EHR Cmte Family History Mother Stroke Brother CAD (coronary artery disease) Brother CAD (coronary artery disease) Brother Heart disease [facility] Relation: Brother(s) Father Family history of lung cancer Mother History of stroke [facility] Problem: Diagnosed with Stroke 84 yrs Social History Smoking Status: Never smoker Substance Use Type: None Meds Medications and Allergies Allergies No Known Allergies Allergy (Verified 05/04/20 15:00) Home and Active Meds: Home Medications metoprolol tartrate 25 mg tablet 25 mg PO BID 05/04/20 [History Confirmed 09/25/23] simvastatin 20 mg tablet 20 mg PO QHS 05/04/20 [History Confirmed 09/25/23] aspirin 81 mg tablet,delayed release (Deirdre Low Dose Aspirin) 81 mg PO DAILY 05/10/20 [History Confirmed 09/25/23] melatonin 5 mg capsule 5 mg PO HS 09/25/23 [History Confirmed 09/25/23] metformin 500 mg tablet 500 mg PO DAILY 09/25/23 [History Confirmed 09/25/23] omega-3 acid ethyl esters 1 gram capsule (Lovaza) 1 cap PO BID 09/25/23 [History Confirmed 09/25/23] rosuvastatin 40 mg tablet 40 mg PO HS 09/25/23 [History Confirmed 09/25/23] scopolamine base 1 mg over 3 days transdermal patch 1 patch transdermal Q72HR 09/25/23 [History Confirmed 09/25/23] tamsulosin 0.4 mg capsule 0.4 mg PO QHS 09/25/23 [History Confirmed 09/25/23] Active Medications Acetaminophen (Acetaminophen 500 Mg Tablet) 500 mg PO Q4H PRN PRN Reason: Pain Stop: 09/24/24 15:42 Last Admin: 09/26/23 01:05 Dose: 500 mg Al Hydrox/Mg Hydrox/Simethicone (Mag Hydrox/Al Hydrox/Simeth 30 Ml Udc) 30 ml PO Q4H PRN PRN Reason: Indigestion Stop: 09/24/24 15:42 Aspirin (Aspirin 81 Mg Tablet.Dr) 81 mg PO DAILY [facility] Stop: 09/25/24 08:59 Last Admin: 09/26/23 08:42 Dose: 81 mg Atorvastatin Calcium (Atorvastatin 80 Mg Tablet) 80 mg PO HS [facility] Stop: 09/24/24 21:59 Last Admin: 09/25/23 21:13 Dose: 80 mg Bisacodyl (Bisacodyl 10 Mg Supp.Rect) 10 mg SC DAILY PRN PRN Reason: Constipation Stop: 09/24/24 15:42 Docusate Sodium (Docusate 100 Mg Capsule) 100 mg PO BID PRN PRN Reason: Constipation Stop: 09/24/24 15:42 Docusate Sodium (Docusate Enema 283 Mg/5 Ml Enema) 283 mg SC DAILY PRN PRN Reason: Constipation Stop: 09/24/24 15:42 Fish Oil ([place]-3/Fish Oil 1,000 Mg Capsule) 1,000 mg PO BID [facility] Stop: 09/24/24 20:59 Last Admin: 09/26/23 08:42 Dose: 1,000 mg Heparin Sodium (Porcine) (Heparin 5,000 Unit/Ml Vial) 5,000 unit SUBCUT Q8HR [facility] Stop: 09/24/24 21:59 Last Admin: 09/26/23 05:44 Dose: 5,000 unit Lactulose (Lactulose 20 Gm/30 Ml Udc) 30 gm PO DAILY PRN PRN Reason: Constipation Stop: 09/24/24 15:42 Melatonin (Melatonin 5 Mg Tablet) 5 mg PO [facility] Stop: 09/24/24 21:59 Last Admin: 09/25/23 21:13 Dose: 5 mg Metformin HCl (Metformin 500 Mg Tablet) 500 mg PO DAILY.WITH.SUPPER [facility] Stop: 09/25/24 16:59 Metoprolol Tartrate (Metoprolol Tartrate 25 Mg Tablet) 25 mg PO BID [facility] Stop: 09/24/24 20:59 Last Admin: 09/26/23 08:42 Dose: Not Given Scopolamine (Scopolamine 1 Mg/3 Days Patch) 1 each TRANSDERML Q72HR [facility] Stop: 09/27/24 08:59 Sennosides (Sennosides 8.6 Mg Tablet) 2 tab PO DAILY@12 PRN PRN Reason: If no BM in 2 days Stop: 09/25/24 11:59 Sodium Chloride (Sodium Chloride 0.9 % 10 Ml Syringe) 0 ml IV-PUSH PRN PRN PRN Reason: Flush Stop: 09/24/24 15:42 Tamsulosin HCl (Tamsulosin 0.4 Mg Cap.Er.24h) 0.4 mg PO QHS [facility]AY[facility] Stop: 09/24/24 21:59 Last Admin: 09/25/23 21:13 Dose: 0.4 mg Exam Physical Exam Vital Signs: Temp Pulse Resp BP Pulse Ox O2 Del Method 97.6 F 63 18 109/74 95 Room Air 09/26/23 05:00 09/26/23 05:00 09/26/23 05:00 09/26/23 08:43 09/26/23 05:00 09/26/23 08:58 Narrative: General: Awake, A&O x 3, pleasant, cooperative, well nourished. Resting comfortably in bed HENT: NC, AT Eyes: No scleral icterus Neck: Supple Cardio: RRR, no murmurs, rubs or gallops. Extremities well perfused Respiratory: CTAB, no wheezes rhonchi or rales. No evidence of respiratory distress GI: Soft, nontender, nondistended Neuro: CN II-XII intact. Strength 5/5 right upper and lower extremities. Strength 5/5 left upper and lower extremities. Moves all extremities spontaneously. Sensation intact bilateral lower extremities. Extremities: No edema, erythema, cyanosis Psych: Affect, speech and movements normal. Mood congruent Results Labs Labs: Laboratory Results - last 24 hr 09/25/23 09/26/23 09/26/23 16:25 05:47 06:02 Corrected WBC 9.1 Uncorrected WBC Count 9.1 RBC 4.81 Hgb 13.7 Hct 40.4 MCV 84.0 MCH 28.5 MCHC 33.9 RDW 13.5 Plt Count 244 MPV 8.4 Neut % (Auto) 68.0 Lymph % (Auto) 19.4 Pickett % (Auto) 9.4 Eos % (Auto) 2.1 Baso % (Auto) 1.1 Nucleat RBC Rel Count 0.0 Neut # (Auto) 6.2 Lymph # (Auto) 1.8 Pickett # (Auto) 0.9 H Eos # (Auto) 0.2 Baso # (Auto) 0.1 PHA Creatinine Clear 71.97 Sodium 136 Potassium 3.9 Chloride 104 Carbon Dioxide 23.1 Anion Gap 12.8 BUN 23 Creatinine 0.93 Est GFR (CKD-EPI) > 60.0 Glucose 132 H POC Glucose 130 125 Calcium 8.8 Total Bilirubin 0.7 AST 22 ALT 48 Alkaline Phosphatase 47 Total Protein 6.9 Albumin 3.7 Globulin 3.2 Albumin/Globulin Ratio 1.2 Prealbumin 22.8 Additional Results Results Comment: I reviewed clinical lab tests, radiology reports and obtained and summated medical records and have ordered follow up lab tests and imaging studies as needed for rehabilitation care. Individualized Plan of Care Individualized Plan of Care Plan of Care: Individualized Overall Plan of Care: Admit Date/Time: 09/26/23 Expected LOS: 10 Days Expected Discharge Destination: Home Rehabilitation IGC: 1.2 Primary Diagnosis: as above Patient?s/Family?s anticipated outcomes/personal goals: To have patient become more independent and to return home. Medical/ Functional Prognosis: Good Anticipated Functional Outcomes/Goals and Interventions: -Therapy Functional Outcome/Goal: Mobility/Locomotion: Patient likely to be independent with ambulation with assistive device. Anticipated interventions: Physician management, PT, OT, Dietitian, Rehab Nursing - Therapy Functional Outcome/Goal: Self Care: Patient likely to be functionally independent for activities of daily living using assistive / adaptive equipment as needed. Anticipated interventions: Physician management, PT, OT, Dietitian, Rehab Nursing - Therapy Functional Outcome/Goal: Bladder/Bowel Management: Patient likely to be independent with bladder care and independent with bowel care. Anticipated interventions: Physician management, PT, OT, Dietitian, Rehab Nursing -Therapy Functional Outcome/Goal: Communication/Cognition: Patient will be able to communicate fully and be safe cognitively. Anticipated interventions: Physician management, PT, OT, Dietitian, Rehab Nursing -Therapy Functional Outcome/Goal: Patient will be independent for bed mobility and transfers Anticipated interventions: Physician management, PT, OT, Dietitian, Rehab Nursing -Therapy Functional Outcome/Goal: Patient will improve endurance to be able to tolerate all daily self care activities and avocational activities. Anticipated interventions: Physician management, PT, OT, Nutrition, Rehab Nursing -Therapy Functional Outcome/Goal: Patient will understand and assimilate / integrate education regarding management of their medical conditions to maintainhealth and wellbeing. Anticipated interventions: Physician management, PT, OT, Dietitian, Rehab Nursing Required Therapy PT: 1.5 hour per day at least 5 days per week with additional therapy on as needed basis. Comments: PT to improve pt's strength, endurance, bed mobility, transfers (sit-stand), standing balance, gait quality on level surfaces and stairs, coordination and functional ADL skills. Will also work to improve pt's safety awareness during transfers and ambulation. OT: 1.5 hour per day at least 5 days per week with additional therapy on as needed basis. Comments: OT for basic ADL re-training (bathing, dressing, toileting, continence, grooming, feeding, transferring), to increase activity tolerance andfunctional mobility and to evaluate for adaptive and assistive devices. Will work to improve pt's endurance and educate pt on fall prevention and energy conservation techniques-pacing strategies and proper breathing techniques duringfunctional tasks. Other: Nutrition, Rehab nursing, Wound, P&O RATIONALE FOR IRF ADMISSION: Patient has both medical and functional complexities that require 24 hour daily monitoring and intervention from Communication Assistant as well as other consulting physicians including internal medicine as well as 24 hour daily public housing manager nursing - for medical safe / optimal management. Patient requires interdisciplinary therapy team rehabilitation care including OT, PT, SW, Rehab Nursing, requires and can tolerate at least 3 hours of daily OT and PT therapy at least 5 days weekly. The following medical conditions significantly impact the rehabilitation process and are being addressed daily and can not be managed at home or in a lesser intense medical setting: Refer to above problem oriented plan of care Assessment/Plan (1) Impaired mobility and activities of daily living: (2) Vertigo: (3) CVA (cerebral vascular accident): (4) History of cardiac catheterization: (5) Hypertension: (6) Hyperlipidemia: Plan This is a 78-year-old male with past medical history of CVA in 2017, HTN, CAD s/p CABG who presents to [facility] for rehab following 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 He has continued impaired mobility and impaired independence with ADLsand IADLs requiring PT/OT/TOP KNITTER 5-7 days/week 3 hours/day to maximize safety and independence with functional ability and self-care. #. 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 We will also work to improve patient's safety awareness during transfers and ambulation. OT for basic ADL retraining (bathing, dressing, toileting, continence, grooming,feeding, transferring), to increase activity tolerance and functional mobility to evaluate for adaptive assistive device. We will work to improve patient's endurance and educate patient on fall prevention and energy conservation techniques-pacing strategies and proper breathing techniques during functional tasks. Patient education Pressure ulcer prophylaxis; encourage mobilization, frequent postural changes, pressure-relief techniques DVT prophylaxis Encourage deep breathing exercise incentive spirometry. Monitor bladder. Toileting schedule. Continue current bladder management, with scans as needed and CIC if needed. Start bowel care program every day to obtain continence, prevent ileus. Maintain fall precautions Gait and balance retraining Provision of the necessary gait aids and functional adaptive equipment to enhance the patient's a functional religion Encourage deep breathing exercises and incentive spirometry RD evaluation Ensure adequate nutrition and hydration Discharge planning. -Continue aspirin, Lipitor for secondary stroke prevention -Scopolamine patch for dizziness #. HTN -Continue lopressor 25 mg BID #. Hx of CAD s/p CABG -Continue aspirin, statin, lopressor as above #. TIIDM -Continue metformin 500 mg daily Updates/Medical Issues -Continue management as outlined above -Admission labs and vitals reviewed. Wnl. Trend PRN Hospitalist to assist with management of comorbid medical conditions #. Pain control: Tylenol PRN #. Bowel and bladder: Continent of Bowel/bladder #. Skin: (pressure ulcer/surgical site) No pressure injuries on admission #. Sleep: Optimize sleep/wake cycle. Melatonin DVT prophylaxis: Heparin 5000 units q8hr Functional status: Impaired. Limited by pain, weakness Discharge planning: ELOS 1-2 weeks I completed a substantive portion of this encounter, the medical decision makingportion of this note in its entirety, including Allied health note review, nursing note review, email production consultant note review, discussion with nursing and case management, and more than 50% of my time was spent on counseling and coordination of care, time spent 70 minutes Patient was personally seen by me, Dr. La, on the day of encounter, reviewed the history and the relevant portions of the chart, including current orders, allied health and email production consultant notes, labs/imaging and performed mims elements of exam and I formulated the plan of care and facilitated the medical decision making. Documented By: Donovan La MD [id number] Signed By: <Electronically signed by Donovan La MD> 09/26/23 1212 [facility] Work Phone: [phone]) 252-572705-02-2023 Evaluation note* Encounter Date Diagnosis Assessment Notes Treatment Notes Treatment Clinical Notes December, Carotid stenosis, bilateral (ICD-10 - I65.23) We discussed his recent carotid duplex studies which remained stable showing less than 50% stenosis bilaterally. He remains asymptomatic of his carotid occlusive disease and on good medical therapy with use of aspirin and statin medications daily. We will continue to follow along and see him again next year with repeat studies. He knows to call us in the meantime with any issues or concerns. emids Other 09-12-2022 NotePROCEDURE: XR HIP LT 2 3V W PELVIS HISTORY: C/O: a pain ; [pain since falling COMPARISON: None. FINDINGS: BONES:Narrowing of the hip joint spaces bilaterally and small periarticular degenerative osteophytes. No fracture, dislocation, bone lesion. Degenerative disc disease of the lower lumbar spine. SOFT TISSUES:No visible soft tissue swelling. EFFUSION:None visible. OTHER: Negative. IMPRESSION: 1. No acute bone abnormality. 2. Moderate or greater degenerative changes of the hip joints bilaterally. Electronically authenticated by: KASH AZAR Date: 2022-04-24 18:45[facility]04-26-2022 Evaluation note* Encounter Date Diagnosis Assessment Notes Treatment Notes Treatment Clinical Notes Nov, Carotid stenosis, bilateral (ICD-10 - I65.23) We reviewed today's duplex studies which remained stable. He remains asymptomatic of his carotid occlusive disease and on good medical therapy with use of aspirin and statin medications daily. We will continue to follow him along on an annual basis with surveillance duplex studies. He knows to call us in the meantime with any issues present. emids Other Evaluation note* Diagnosis Cerebrovascular accident (CVA) due to embolism of precerebral artery (CMS-HCC)- Primary Other cerebrovascular vasospasm and vasoconstriction [facility] Diagnosis Onset Date Resolution Status CAD (coronary artery disease) acute CVA (cerebral vascular accident) acute Hyperlipidemia acute Hypertension acute Impaired mobility and activities of daily living acute Vertigo acute History of cardiac catheterization resolved [facility] Work Phone: History general Narrative - Reported* Type Description Date Medical History CAD Medical History CVA x2 Medical History HTN Medical History h/o PA Surgical History hernia repair Surgical History back Surgical History right wrist surgery Surgical History RIGHT CEA WITH PATCH 05/10/20 Hospitalization History stroke Hospitalization History heart matti. Hospitalization History back matti. emids Other InstructionsNot on filedocumented in this encounter [facility] Sta[facility] SystemInstructionsNot on filedocumented in this encounter [facility] Staples SystemInstructionsNot on filedocumented in this encounter [facility] [employer] [facility] Summary Purpose Family History No Family History Records FoundUnknown Family Member Name Dates Details Family history of cerebrovas cular accident (CVA): Mother(V17.1, Z82.3) Status:Active Family history of hyperlipid emia: Mother, Father, Brother(V18.19, Z83.438) Status:Active Family history of myocardial infarction: Mother, Brother(V17.3, Z82.49) Status:Active H/O aortic valve replacement : Brother(V43.3, Z95.2) Status:Active Unknown Family Member Name Dates Details Family history of cerebrovas cular accident (CVA): Mother(V17.1, Z82.3) Status:Active Family history of hyperlipid emia: Mother, Father, Brother(V18.19, Z83.438) Status:Active Family history of myocardial infarction: Mother, Brother(V17.3, Z82.49) Status:Active H/O aortic valve replacement : Brother(V43.3, Z95.2) Status:Active Unknown Family Member Name Dates Details Family history of cerebrovas cular accident (CVA): Mother(V17.1, Z82.3) Status:Active Family history of hyperlipid emia: Mother, Father, Brother(V18.19, Z83.438) Status:Active Family history of myocardial infarction: Mother, Brother(V17.3, Z82.49) Status:Active H/O aortic valve replacement : Brother(V43.3, Z95.2) Status:Active Unknown Family Member Name Dates Details Family history of cerebrovas cular accident (CVA): Mother(V17.1, Z82.3) Status:Active Family history of hyperlipid emia: Mother, Father, Brother(V18.19, Z83.438) Status:Active Family history of myocardial infarction: Mother, Brother(V17.3, Z82.49) Status:Active H/O aortic valve replacement : Brother(V43.3, Z95.2) Status:Active Unknown Family Member Name Dates Details Family history of cerebrovas cular accident (CVA): Mother(V17.1, Z82.3) Status:Active Family history of hyperlipid emia: Mother, Father, Brother(V18.19, Z83.438) Status:Active Family history of myocardial infarction: Mother, Brother(V17.3, Z82.49) Status:Active H/O aortic valve replacement : Brother(V43.3, Z95.2) Status:Active Unknown Family Member Name Dates Details H/O aortic valve replacement : Brother(V43.3, Z95.2) Status:Active Family history of myocardial infarction: Mother, Brother(V17.3, Z82.49) Status:Active Family history of hyperlipid emia: Mother, Father, Brother(V18.19, Z83.438) Status:Active Family history of cerebrovas cular accident (CVA): Mother(V17.1, Z82.3) Status:Active Unknown Family Member Name Dates Details Family history of cerebrovas cular accident (CVA): Mother(V17.1, Z82.3) Status:Active Family history of hyperlipid emia: Mother, Father, Brother(V18.19, Z83.438) Status:Active Family history of myocardial infarction: Mother, Brother(V17.3, Z82.49) Status:Active H/O aortic valve replacement : Brother(V43.3, Z95.2) Status:Active Unknown Family Member Name Dates Details H/O aortic valve replacement : Brother(V43.3, Z95.2) Status:Active Family history of myocardial infarction: Mother, Brother(V17.3, Z82.49) Status:Active Family history of hyperlipid emia: Mother, Father, Brother(V18.19, Z83.438) Status:Active Family history of cerebrovas cular accident (CVA): Mother(V17.1, Z82.3) Status:Active Unknown Family Member Name Dates Details Family history of cerebrovas cular accident (CVA): Mother(V17.1, Z82.3) Status:Active Family history of hyperlipid emia: Mother, Father, Brother(V18.19, Z83.438) Status:Active Family history of myocardial infarction: Mother, Brother(V17.3, Z82.49) Status:Active H/O aortic valve replacement : Brother(V43.3, Z95.2) Status:Active Relationship Condition Age at Onset Recorded Date/T cherelle Not Specified Cerebrovascular accident (CVA) Unknown brother Coronary artery disease Unknown brother Heart disease Unknown father Unknown Family history of lung cancer Unknown Not Specified History of stroke Unknown Unknown Advance Directives No Advanced Directives Records FoundLatest Code Status on File Code Status Date Activated Date Inactivated Comments Full Code 09/20/2023 3:13 AM 09/25/2023 4:31 PM Advance Directive Response Recorded Date/ Time Advance Directives No April 8:29am Latest Code Status on File Code Status Date Activated Date Inactivated Comments Full Code 09/20/2023 3:13 AM 09/25/2023 4:31 PM Chief Complaint * JANICE SHULTZ is being seen for a 6 month follow-up of. * 77-year-old gentleman returns for follow-up he is doing well he has no cardiovascular complaints orchest discomfort or nitrate usage or hospitalizations. He has known ASHD with remote PCI of the RCAdating back to 2014 he had normal stress perfusion imaging in May 2021 at that time for chest discomfort. He is otherwise exercising on a daily basis. * Remains on appropriate secondary preventive therapies * Will follow-up again in 1 year Reason for Referral Specialty Diagnoses / Procedures Referred By Contac t Referred To Contact Diagnoses Cerebrovascular accident (CVA) due to embolism of precerebral artery (CMS-HCC) Other cerebrovascular vasospasm and vasoconstriction Procedures Event Monitor (In Office) Prasanna Thornton, NAN-BUNG SEWER [address] [facility] [address] [place] [address] Referral ID Status Reason Start Date Expiration Date V isits Requested Visits Authorized [id number] Pending Review 09/26/2023 09/25/2024 1 1 Chief Complaint and Reason for Visit Chief Complaint left PICA CVA w/hemo rrhagic transformation left PICA CVA w/hemorrhagic transformation left PICA CVA w/hemorrhagic transformation left PICA CVA w/hemorrhagic transformation left PICA CVA w/hemorrhagic transformation Reason for Visit CAD (coronary artery disease) CVA (cerebral vascular accident) Hyperlipidemia Hypertension Impaired mobility and activities of daily living Vertigo History of cardiac catheterization Additional Source Comments (unrecognized sect ion and content) No Status Records FoundNo Status Records FoundNo Status Records FoundNo Status Records FoundNo Status Records FoundNo Status Records FoundNo Status Records FoundNo Status Records FoundNo Status Records Found INFORMATION SOURCE (unrecogn ized section and content) DATE CREATED AUTHOR 01/23/2018 [facility] DATE CREATED AUTHOR AUTHOR'S ORGANIZ ATION 06/06/2018 [facility] DATE CREATED AUTHOR AUTHOR'S ORGANIZ ATION 05/20/2021 [facility] DATE CREATED AUTHOR AUTHOR'S ORGANIZ ATION 05/09/2022 [facility] DATE CREATED AUTHOR AUTHOR'S ORGANIZ ATION 05/06/2023 [facility] DATE CREATED AUTHOR AUTHOR'S ORGANIZ ATION 05/06/2023 [facility] DATE CREATED AUTHOR AUTHOR'S ORGANIZ ATION 09/26/2023 [facility] DATE CREATED AUTHOR AUTHOR'S ORGANIZ ATION 09/28/2023 [facility] DATE CREATED AUTHOR AUTHOR'S ORGANIZ ATION 10/14/2023 [facility] REASON FOR VISIT (unrecogniz ed section and content) Reason Onset Date Comments Transition Of Care 10/05/2023 Care Teams (unrecognized sec tion and content) 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 Relationship Specialty Start Date End Date Sherif Paredes MD [address] [place] [address] PCP - General Family Medicine 07/09/17 Team Status: Active Member Role Status Dates Sherif Paredes MD Primary Care Provider Active Team Status: Inactive Member Role Status Dates Sherif Paredes MD Primary Care Provider Active Start: September 25, 2023 End: October 04, 2023 Donovan La MD Admit Provid er, Attending Provider Active Start: September 25, 2023 End: October 04, 2023 Jessica Barber , FELIPE Other Provider Active Star t: September 25, 2023 End: October 04, 2023 Gabbie Heredia , FELIPE Other Provider Active Start : September 25, 2023 End: October 04, 2023 Shaista Galicia RN Other Provider Active Start: ebruary 2023 End: October 04, 2023 Harriet Enriquez RN Other Provider Active Star t: September 25, 2023 End: October 04, 2023 Carmen Burris RN Other Provider Active Start : September 25, 2023 End: October 04, 2023 Shreya Mendieta , FELIPE Other Provider Active Start: ebary 2023 End: October 04, 2023 Richa Butler , FELIPE Other Provider Active Start: bru2023 End: October 04, 2023 Sole Ellington MD Other Provider Active Start: September 25, 2023 End: October 04, 2023 Prem Carrasco MD Other Provider Active Start: ary 2023 End: October 04, 2023 Catie North APRN Other Provider Active Start: September 25, 2023 End: October 04, 2023 Aayush Faith DO Other Provider Active Start : September 25, 2023 End: October 04, 2023 Fuentes Nazario MD Other Provider Active Start : September 25, 2023 End: October 04, 2023 Cesar Parr DO Other Provider Active Start: September 25, 2023 End: October 04, 2023 Emanuel Stevenson MD Other Provider Active Start: September 25, 2023 End: October 04, 2023 Niurka Chung MD Other Provider Active Start : September 25, 2023 End: October 04, 2023 Alex Hernandes MD Other Provider Active Start: 2023 End: October 04, 2023 Jessie Andrea APRN Other Provider Active Start: September 25, 2023 End: October 04, 2023 Hali Springer MD Other Provider Active Start: September 25, 2023 End: October 04, 2023 Fercho Newby MD Other Provider Active Start: 2023 End: October 04, 2023 Adriana Ling MD Other Provider Active Start: September 25, 2023 End: October 04, 2023 Saloni Esposito MD Other Provider Active Start: September 25, 2023 End: October 04, 2023 Kay Blackburn DO Other Provider Active Start: September 25, 2023 End: October 04, 2023 Lindsey Mcghee MD Other Provider Active Start: 2023 End: October 04, 2023 Bahman Harley MD Other Provider Active Start: Sep End: October 04, 2023 Kell Dyer NP-C Other Provider Active St art: September 25, 2023 End: October 04, 2023 Rebekah Rodríguez APRN Other Provider Active Star t: September 25, 2023 End: October 04, 2023 Fletcher Pollard MD Other Provider Active Start: September 25, 2023 End: October 04, 2023 Gui Longo MD Other Provider Active Start: 2023 End: October 04, 2023 Alexx Garcia MD Other Provider Active Start: Sep End: October 04, 2023 Arlene Mccall MD Other Provider Active Star t: September 25, 2023 End: October 04, 2023 Rohit Toure MD Other Provider Active Start: [id number] End: October 04, 2023 Radha Islas DO Other Provider Active Start: 2023 End: October 04, 2023 Crow R Tucker , DO Other Provider Active Start : September 25, 2023 End: October 04, 2023 Dominic Bo , DO Other Provider Active Sta rt: September 25, 2023 End: October 04, 2023 Sarah Malhotra APRN Other Provider Active Start: September 25, 2023 End: October 04, 2023 Sav Malcolm , Other Provider Active Start: September 25, 2023 End: October 04, 2023 Angel Houston MD Other Provider Active Sta rt: September 25, 2023 End: October 04, 2023 Carmen Lipscomb APRN Other Provider Active Start : September 25, 2023 End: October 04, 2023 Fouzia Leavitt APRN Other Provider Active St art: September 25, 2023 End: October 04, 2023 Naye Saxena MD Other Provider Active Start: ebruary 2023 End: October 04, 2023 Triston Camp MD Other Provider Active S tart: September 25, 2023 End: October 04, 2023 Lee Dumont , Other Provider Active Star t: September 25, 2023 End: October 04, 2023 Jewels Garrett APRN Other Provider Active S tart: September 25, 2023 End: October 04, 2023 Kandice Cast DO Other Provider Active Start: September 25, 2023 End: October 04, 2023 Yuli Dan RN Other Provider Active Start: ebruary 2023 End: October 04, 2023 Team Status: Active Member Role Status Dates Sherif Paredes MD Primary Care Provider Active Start: September 26, 2023 Donovan La MD Admit Provid er, Attending Provider, Other Provider Active Start: September 26, 2023 Jessica Barber , FELIPE Other Provider Active Star t: September 26, 2023 Gabbie Heredia RN Other Provider Active Start : September 26, 2023 Shaista Galicia , FELIPE Other Provider Active Start: ebruary 2023 Harriet Enriquez RN Other Provider Active Star t: September 26, 2023 Carmen Burris RN Other Provider Active Start : September 26, 2023 Shreya Mendieta RN Other Provider Active Start: ebruary 2023 Richa Butler RN Other Provider Active Start: 2023 Sole Ellington MD Other Provider Active Start: September 26, 2023 Prem Carrasco MD Other Provider Active Start: ebruary 2023 Catie North APRN Other Provider Active Start: September 26, 2023 Aayush Faith DO Other Provider Active Start : September 26, 2023 Fuentes Nazario MD Other Provider Active Start : September 26, 2023 Cesar Parr DO Other Provider Active Start: September 26, 2023 Emanuel Stevenson MD Other Provider Active Start: September 26, 2023 Niurka Chung MD Other Provider Active Start : September 26, 2023 Alex Hernandes MD Other Provider Active Start: [id number] Jessie Andrea APRN Other Provider Active Start: September 26, 2023 Hali Springer MD Other Provider Active Start: September 26, 2023 Fercho Newby MD Other Provider Active Start: 2023 Adriana Ling MD Other Provider Active Start: September 26, 2023 Saloni Esposito MD Other Provider Active Start: September 26, 2023 Kay Blackburn DO Other Provider Active Start: September 26, 2023 Lindsey Mcghee MD Other Provider Active Start: 2023 Bahman Harley MD Other Provider Active Start: Sep Kell Dyer NP-C Other Provider Active St art: September 26, 2023 Rebekah Rodríguez HYDROELECTRIC STATION OPERATOR Other Provider Active Star t: September 26, 2023 Fletcher Pollard MD Other Provider Active Start: September 26, 2023 Gui Longo MD Other Provider Active Start: 2023 Alexx Garcia MD Other Provider Active Start: Sep Arlene Mccall MD Other Provider Active Star t: September 26, 2023 Rohit Toure MD Other Provider Active Start: ebruary 2023 Radha Islas , DO Other Provider Active Start: 2023 Crow Ceballos , DO Other Provider Active Start : September 26, 2023 Dominic Bo , DO Other Provider Active Sta rt: September 26, 2023 Sarah Malhotra , NAN Other Provider Active Start: September 26, 2023 Sav Malcolm , DO Other Provider Active Start: September 26, 2023 Angel Houston MD Other Provider Active Sta rt: September 26, 2023 Carmen Lipscomb , HYDROELECTRIC STATION OPERATOR Other Provider Active Start : September 26, 2023 Fouzia Leavitt , HYDROELECTRIC STATION OPERATOR Other Provider Active St art: September 26, 2023 Naye Saxena MD Other Provider Active Start: 2023 Triston Camp MD Other Provider Active S tart: September 26, 2023 Lee Dumont , DO Other Provider Active Star t: September 26, 2023 Jewels Garrett APRN Other Provider Active S tart: September 26, 2023 Kandice Cast , DO Other Provider Active Start: September 26, 2023 Yuli Dan RN Other Provider Active Start: 2023 Team Status: Active Member Role Status Dates Sherif Paredes MD Primary Care Provider Active Start: September 26, 2023 Donovan La MD Admit Provid er, Other Provider Active Start: September 26, 2023 Jessica Barber , FELIPE Other Provider Active Star t: September 26, 2023 Gabbie Heredia , FELIPE Other Provider Active Start : September 26, 2023 Shaista Galicia , FELIPE Other Provider Active Start: 2023 Harriet Enriquez , FELIPE Other Provider Active Star t: September 26, 2023 Carmen Burris , FELIPE Other Provider Active Start : September 26, 2023 Shreya Mendieta RN Other Provider Active Start: eb2023 Richa Butler RN Other Provider Active Start: 2023 Sole Ellington MD Other Provider Active Start: September 26, 2023 Prem Carrasco MD Other Provider Active Start: ebruary 2023 Catie North APRN Other Provider Active Start: September 26, 2023 Aayush Faith , Other Provider Active Start : September 26, 2023 Fuentes Nazario MD Other Provider Active Start : September 26, 2023 Cesar Parr , Other Provider Active Start: September 26, 2023 Emanuel Stevenson MD Other Provider Active Start: September 26, 2023 Niurka Chung MD Other Provider Active Start : September 26, 2023 Alex Hernandes MD Other Provider Active Start: eb2023 Jessie Andrea APRN Attending Merry soliman, Other Provider Active Start: September 26, 2023 Hali Springer MD Other Provider Active Start: September 26, 2023 Fercho Newby MD Other Provider Active Start: eb2023 Adriana Ling MD Other Provider Active Start: September 26, 2023 Saloni Esposito MD Other Provider Active Start: September 26, 2023 Kay Blackburn DO Other Provider Active Start: September 26, 2023 Lindsey Mcghee MD Other Provider Active Start: 2023 Bahman Harley MD Other Provider Active Start: Sep Kell Dyer NP-C Other Provider Active St art: September 26, 2023 Rebekah Rodríguez APRN Other Provider Active Star t: September 26, 2023 Fletcher Pollard MD Other Provider Active Start: September 26, 2023 Gui Longo MD Other Provider Active Start: 2023 Alexx Garcia MD Other Provider Active Start: Sep Arlene Mccall MD Other Provider Active Star t: September 26, 2023 Rohit Toure MD Other Provider Active Start: 2023 Radha Islas DO Other Provider Active Start: 2023 Crow Ceballos , Other Provider Active Start : September 26, 2023 Dominic Bo , Other Provider Active Sta rt: September 26, 2023 Sarah Malhotra APRN Other Provider Active Start: September 26, 2023 Sav Malcolm , Other Provider Active Start: September 26, 2023 Angel Houston MD Other Provider Active Sta rt: September 26, 2023 Carmen Lipscomb APRN Other Provider Active Start : September 26, 2023 Fouzia Leavitt APRN Other Provider Active St art: September 26, 2023 Naye Saxena MD Other Provider Active Start: ebary 2023 Triston Camp MD Other Provider Active S tart: September 26, 2023 Lee Dumont , DO Other Provider Active Star t: September 26, 2023 Jewels Garrett APRN Other Provider Active S tart: September 26, 2023 Kandice Cast , Other Provider Active Start: September 26, 2023 Yuli Dan RN Other Provider Active Start: 2023 Team Status: Active Member Role Status Dates Sherif Paredes MD Primary Care Provider Active Start: October 03, 2023 Donovan La MD Admit Provid er, Other Provider Active Start: October 03, 2023 Jessica Barber RN Other Provider Active Star t: October 03, 2023 Gabbie Heredia , FELIPE Other Provider Active Start : October 03, 2023 Shaista Galicia , FELIPE Other Provider Active Start: 2023 Harriet Enriquez , FELIPE Other Provider Active Star t: October 03, 2023 Carmen Burris , FELIPE Other Provider Active Start : October 03, 2023 Shreya Mendieta , FELIPE Other Provider Active Start: 2023 Richa Butler , FELIPE Other Provider Active Start: 2023 Sole Ellington MD Other Provider Active Start: October 03, 2023 Prem Carrasco MD Other Provider Active Start: 2023 Catie North APRN Other Provider Active Start: October 03, 2023 Aayush Faith DO Other Provider Active Start : October 03, 2023 Fuentes Nazario MD Other Provider Active Start : October 03, 2023 Cesar Parr DO Other Provider Active Start: October 03, 2023 Emanuel Stveenson MD Other Provider Active Start: October 03, 2023 Niurka Chung MD Other Provider Active Start : October 03, 2023 Alex Hernandes MD Other Provider Active Start: 2023 Jessie Andrea APRN Other Provider Active Start: October 03, 2023 Hali Springer MD Other Provider Active Start: October 03, 2023 Fercho Newby MD Other Provider Active Start: 2023 Adriana Ling MD Other Provider Active Start: October 03, 2023 Saloni Esposito MD Other Provider Active Start: October 03, 2023 Kay Blackburn DO Other Provider Active Start: October 03, 2023 Lindsey Mcghee MD Other Provider Active Start: 2023 Bahman Harley MD Other Provider Active Start: Sep Kell Dyer MORTISING MACHINE OPERATOR-C Other Provider Active St art: October 03, 2023 Rebekah Rodríguez APRN Other Provider Active Star t: October 03, 2023 Fletcher Pollard MD Other Provider Active Start: October 03, 2023 Gui Longo MD Other Provider Active Start: 2023 Alexx Garcia MD Other Provider Active Start: Sep Arlene Mccall MD Other Provider Active Star t: October 03, 2023 Rohit Toure MD Other Provider Active Start: 2023 Radha Islas DO Other Provider Active Start: 2023 Crow Ceballos , Other Provider Active Start : October 03, 2023 Dominic Bo , Other Provider Active Sta rt: October 03, 2023 Sarah Malhotra APRN Attending Provider, Other Provider Active Start: October 03, 2023 Sav Malcolm , Other Provider Active Start: October 03, 2023 Angel Houston MD Other Provider Active Sta rt: October 03, 2023 Carmen Lipscomb APRN Other Provider Active Start : October 03, 2023 Fouzia Leavitt APRN Other Provider Active St art: October 03, 2023 Naye Saxena MD Other Provider Active Start: eb2023 Triston Camp MD Other Provider Active S tart: October 03, 2023 Lee Dumont , DO Other Provider Active Star t: October 03, 2023 Jewels Garrett APRN Other Provider Active S tart: October 03, 2023 Kandice Cast , Other Provider Active Start: October 03, 2023 Yuli Dan , FELIPE Other Provider Active Start: eb2023 Team Status: Active Member Role Status Dates Sherif Paredes MD Primary Care Provider Active Start: October 03, 2023 Donovan La MD Admit Provid er, Other Provider Active Start: October 03, 2023 Jessica Barber , FELIPE Other Provider Active Star t: October 03, 2023 Gabbie Heredia , FELIPE Other Provider Active Start : October 03, 2023 Shaista Galicia , FELIPE Other Provider Active Start: 2023 Harriet Enriquez , FELIPE Other Provider Active Star t: October 03, 2023 Carmen Burris , FELIPE Other Provider Active Start : October 03, 2023 Shreya Mendieta , FELIPE Other Provider Active Start: eb2023 Richa Butler , FELIPE Other Provider Active Start: bru2023 Sole Ellington MD Other Provider Active Start: October 03, 2023 Prem Carrasco MD Other Provider Active Start: 2023 Catie North APRN Other Provider Active Start: October 03, 2023 Aayush Faith DO Other Provider Active Start : October 03, 2023 Fuentes Nazario MD Other Provider Active Start : October 03, 2023 Cesar Parr DO Other Provider Active Start: October 03, 2023 Emanuel Stevenson MD Other Provider Active Start: October 03, 2023 Niurka Chung MD Other Provider Active Start : October 03, 2023 Alex Hernandes MD Other Provider Active Start: 2023 Jessie Andrea APRN Other Provider Active Start: October 03, 2023 Hali Springer MD Other Provider Active Start: October 03, 2023 Fercho Newby MD Other Provider Active Start: eb2023 Adriana Ling MD Other Provider Active Start: October 03, 2023 Saloni Esposito MD Other Provider Active Start: October 03, 2023 Kay Blackburn , Other Provider Active Start: October 03, 2023 Lindsey Mcghee MD Other Provider Active Start: 2023 Bahman Harley MD Other Provider Active Start: Sep Kell Dyer , MORTISING MACHINE OPERATOR-C Other Provider Active St art: October 03, 2023 Rebekah Rodríguez APRN Other Provider Active Star t: October 03, 2023 Fletcher Pollard MD Other Provider Active Start: October 03, 2023 Gui Longo MD Other Provider Active Start: 2023 Alexx Garcia MD Other Provider Active Start: Sep Arlene Mccall MD Other Provider Active Star t: October 03, 2023 Rohit Toure MD Other Provider Active Start: 2023 Radha Islas , DO Other Provider Active Start: 2023 Crow Ceballos , DO Other Provider Active Start : October 03, 2023 Dominic Bo , DO Other Provider Active Sta rt: October 03, 2023 Sarah Malhotra APRN Other Provider Active Start: October 03, 2023 Sav Malcolm , Other Provider Active Start: October 03, 2023 Angel Houston MD Other Provider Active Sta rt: October 03, 2023 Carmen Lipscomb APRN Other Provider Active Start : October 03, 2023 Fouzia Leavitt APRN Other Provider Active St art: October 03, 2023 Naye Saxena MD Other Provider Active Start: 2023 Triston Camp MD Other Provider Active S tart: October 03, 2023 Lee Dumont , DO Other Provider Active Star t: October 03, 2023 Jewels Garrett APRN Other Provider Active S tart: October 03, 2023 Kandice Cast , DO Other Provider Active Start: October 03, 2023 Yuli Dan RN Other Provider Active Start: 2023 Hernan Minaya MD Attending Provider Active Star t: October 03, 2023 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 Relationship Specialty Start Date End Date Sherif Paredes MD [address] [place] [address] PCP - [facility] 07/09/17 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 Relationship Specialty Start Date End Date Sherif Paredes MD [address] [place] [address] PCP - [facility] 07/09/17 FOR RECORDS PERTAINING TO PATIENTS WHO ARE OR HAVE BEEN ENROLLED IN A CHEMICAL DEPENDENCY/SUBSTANCEABUSE PROGRAM, SOME INFORMATION MAY BE OMITTED. This clinical summary was aggregated from multiple sources. Caution should be exercised in using it in the provision of clinical care. This summary normalizes information from multiple sources, and as a consequence, information in this document may materially change the coding, format and clinical context of patient data. In addition, data may be omitted in some cases. CLINICAL DECISIONS SHOULD BE BASED ON THE PRIMARY CLINICAL RECORDS. [facility]. provides no warranty or guarantee of the accuracy or completeness of information in this document.
--- NOTE | 2023-10-17 09:54 | ED.GENADUL1 ---
HPI - General Adult General Chief complaint: Syncope Stated complaint: LOW BLOOD PRESSURE Time Seen by Provider: 10/17/23 09:51 Source: patient Mode of arrival: Wheelchair History of Present Illness HPI narrative: Patient is a 78-year-old male who is presenting to the ER after having lightheaded dizzy episode after coming into the hospital to a health fair and being evaluated. Patient had a near syncopal episode when he was leaving, patient felt lightheaded dizzy, no vertigo. No headache, chest pain, or shortness of breath. Patient stated he backed into a wall, and then slowly lowered himself to the ground. Patient did not have a syncopal episode. Patient feels better in the ER at this time. Patient has no headache, no chest pain, no shortness of breath. No nausea or vomiting. 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 Patient normally takes half a tablet twice a day of his blood pressure medicine, he took a full tablet this morning. is at bedside. Patient is currently asymptomatic. Patient wants to sit up and then stand up to see if he has any symptoms of lightheaded or dizziness. Patient stated that he has been feeling lightheaded dizzy with positional changes, but he did not feel his symptoms at all today, patient was very excited and stated today is the best that he has felt since he was discharged 2 weeks ago from the hospital from having hemorrhagic stroke. All systems are negative except as noted/marked. All systems reviewed and otherwise negative. Nurses note and vital signs reviewed and patient is not hypoxic. General: The patient appears well and in no apparent distress. Patient is resting comfortably on cart. Patient is not toxic, lethargic, or listless Skin: Warm, dry, no pallor noted. There is no rash noted. No petechiae, purpura. Head: Normocephalic, atraumatic Eye: Normal conjunctiva, no drainage, EOMI. PERRL Ears, Nose, Mouth, and Throat: oral mucosa is moist. Nares patent. Mouth without vesicles. Cardiovascular: Regular Rate and Rhythm, no murmur, gallop, rub Respiratory: Patient is in no distress, no accessory muscle use, lungs are clear to auscultation, no wheezing, rales or rhonchi Back: non-tender, no CVA tenderness bilaterally to percussion. No CT LS midline pain GI: no tenderness to palpation, no masses appreciated. No rebound, guarding, or rigidity noted. No distention Musculoskeletal: Patient has full range of motion of all of the extremities, no motor, sensory, or focal neurological deficits Neurological: A&O x4, normal speech Psychiatric: Cooperative Related Data Home Medications Medication Instructions Recorded Confirmed aspirin 325 mg tablet 325 mg PO DAILY 09/19/23 09/19/23 metoprolol tartrate 25 mg tablet 12.5 mg PO BID 09/19/23 09/19/23 nitroglycerin 0.4 mg sublingual 0.4 mg sublingual Q5M PRN chest 09/19/23 09/19/23 tablet pain simvastatin 40 mg tablet 40 mg PO DAILY 09/19/23 09/19/23 Allergies Allergy/AdvReac Type Severity Reaction Status Date / Time No Known Drug Allergies Allergy Verified 09/19/23 16:45 [facility] Social History Smoking status: Never smoker Exam Constitutional Vital Signs, click to edit/add: Last Vital Signs Temp 97.7 F 10/17/23 09:16 Pulse 60 10/17/23 09:16 Resp 16 10/17/23 09:16 BP 137/82 10/17/23 09:16 Pulse Ox 97 10/17/23 09:16 O2 Del Method Room Air 10/17/23 09:16 Course Vital Signs Vital signs: Vital Signs Temperature 97.7 F 10/17/23 09:16 Pulse Rate 60 10/17/23 09:16 Respiratory Rate 16 10/17/23 09:16 Blood Pressure 137/82 10/17/23 09:16 Pulse Oximetry 97 10/17/23 09:16 Oxygen Delivery Method Room Air 10/17/23 09:16 Temperature 97.7 F 10/17/23 09:16 Pulse Rate 60 10/17/23 09:16 Respiratory Rate 16 10/17/23 09:16 Blood Pressure 137/82 10/17/23 09:16 Pulse Oximetry 97 10/17/23 09:16 Oxygen Delivery Method Room Air 10/17/23 09:16 Medical Decision Making [facility] Narrative Medical decision making narrative: Patient had IV established and lab work drawn. 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 Patient sat up in bed for a minute and then stood up and has no lightheaded, dizziness, patient states he feels fine. It was recommended that patient have EKG, cardiac monitoring, IV fluids, and lab work done. Patient is aware of the recommendations but declines. Patient states that he feels good, has no symptoms, does not want to go through a lot of testing. Patient has multiple doctor visits on Sunday, Sunday and next week with all his physicians. Patient feels comfortable going home and does not want testing. Patient has a functional decision-making capacity do not have any testing. Patient and are extremely thankful and very pleasant, will return if symptoms return, no questions at discharge Discharge Plan Discharge Chief Complaint: Syncope Clinical Impression: Dizziness, Near syncope Patient Disposition: Home, Self-Care Time of Disposition Decision: 09:53 Condition: Fair Prescriptions / Home Meds: No Action metoprolol tartrate 25 mg tablet 12.5 mg PO BID nitroglycerin 0.4 mg tablet, sublingual 0.4 mg sublingual Q5M PRN (Reason: chest pain) simvastatin 40 mg tablet 40 mg PO DAILY aspirin 325 mg tablet 325 mg PO DAILY Instructions: Near Syncope (ED), Dizziness (ED) Additional Instructions: Take blood pressure medication as recommended, take your half a tablet of blood pressure medicine this evening before bedtime as you normally do. Increase fluids today. If symptoms return please return back to the ER for additional testing as necessary. Referrals: Physician,Non-Staff, MD [Primary Care Provider] - 1 week Stand Alone Forms: Portal Instructions
== END 2023-10-17 10:05 | disposition home or self-care (01) ==
PROVIDERS: Emergency Provider Emergency Medicine
DX: R42 Dizziness and giddiness (principal); R55 Syncope and collapse; Z79.82 Long term (current) use of aspirin; Z79.899 Other long term (current) drug therapy
CPT/HCPCS: 99281

== ENCOUNTER 2023-10-17 18:33 | Observation (INO) | payer MEDICARE, SELFPAY ==
[2023-10-17] VITALS (7 sets, daily range): BP systolic 118–180; BP diastolic 78–100; PULSE 68–94; RESP 16; TEMP 36.6–36.9; O2SAT 93–97; BMI 24.4; BMI 24.8
--- NOTE | 2023-10-17 18:38 | ECG_ITS ---
[facility] Test Date: 2023-10-17 Pat Name: JANICE SHULTZ Department: Room: - Gender: Male Lead Person: : 1945 Requested By: TALIA SCOTT Order Number: [id number] Reading MD: TALIA SCOTT Measurements Intervals [place] Rate: 70 P: 69 NE: 226 QRS: 3 QRSD: 110 T: 6 QT: 390 QTc: 411 Interpretive Statements 1100 Sinus rhythm 2231 First degree AV block 3613 Cannot rule out inferior myocardial infarction, probably old 9150 abnormal ECG Compared to ECG 09/19/2023 16:53:08 First degree AV block now present Myocardial infarct finding now present Intraventricular conduction delay no longer present Electronically Signed On 10-18-2023 6:07:06 EST by TALIA SCOTT
--- NOTE | 2023-10-17 18:40 | XR_ITS ---
[address] [address] Patient Name: JANICE SHULTZ MRN: [id number] date: 1945 Sex: M Assigned Patient Location: ER Current Patient Location: ER Accession/Order Number: [id number] Exam Date: 10/17/2023 19:10 Report Date: 10/17/2023 19:45 At the request of: ESTER MUELLER Procedure: XR chest 2V EXAM: XR chest 2V HISTORY: weak COMPARISON: 09/13/2021 TECHNIQUE: Upright PA and lateral chest x-ray FINDINGS: The heart is not enlarged and the vasculature is not distended. No acute infiltrate, effusion or pneumothorax is identified. Degenerative changes are seen in the spine. XR/XR chest 2V IMPRESSION: No acute infiltrate or evidence of cardiac decompensation. The overall appearance of the chest is essentially unchanged. Electronically authenticated by: MARIETTA THORNE Date: 10/17/2023 19:45
--- OUTSIDE RECORDS SUMMARY | 2023-10-17 18:46 | XMS_ITS | CCD ---
Author Name Unknown Address [address] [facility] [address] [place] [address] Organization [facility] Care Team Providers Care Maintenance Technician Name Role Phone SYSTEM, PROVIDER NOT IN [...] HAY, DR KNIGHT Admitting Unavailable DEFRANCE, DR GORMAN Primary Care Unavailable HAY, DR KNIGHT Attending Unavailable HAY, DR KNIGHT Consulting Unavailable TROTTLv GIROLADENVER Consulting Unavailable HONG, DR CAITEI Roque Attending Unavailabl e REINECK, DR CAITIE [...] Unavailable Sherif Paredes MD Primary Care Provider [phone] GOPAL NOVA Admitting Unavailable GOPAL NOVA Attending Unavailable REF PROV, NOT IN SYSTEM Referring Unavaila ble DEFBHUPENDRA, SHERIF [place] Primary Care Unavailable JOHNATHAN PINTO Consulting Unavailable STEPHANIEROLAND Caruso Consulting Unavailable JAUN, JANICE Y Consulting Unavailable MAGSI, RAYAN Referring Unavailable DEFRANCE, SHERIF [place] Primary Care Unavailable MAGSI, RAYAN Referring Unavailable DEFRANCE, SHERIF [place] Primary Care Unavailable PRASANNA THORNTON Referring Unavailable DEFRANCE, SHERIF [place] Primary [...] DO Cesar Parr Other Provider MD Emanuel Stevensno Other Provider MD Niurka Chung Other Provider MD Alex Hernandes Other Provider Unavailable NAN Andrea Other Provider [phone] MD Hali Springer Other Provider MD Fercho Newby Other Provider MD Adriana Ling Other Provider MD Saloni Esposito Other Provider DO Kay Blackburn Other Provider MD Lindsey Mcghee Other Provider MD Bahman Harley Other Provider ANTWAN Dyer Other Provider [phone] NAN Rodríguez Other Provider Unavailable MD Fletcher [...] atorvastatin; Translations: [ATORVASTATIN] Drug Allergy 6 [facility], [facility] Repository Medications Current Medications Medication Drug Class(es) [...] mg oral capsule (4 sources) Start: 09-25-2023 [place]-3 Acid E thyl Esters (Lovaza) 1 gram [...] Quantity: 90 Refills: 3 Ordered: 21-Nov-2022 Lake Evangeilsta DO Start : 12-Sep-2022 Active Start: 05-04-2020 [...] PERSISTS. 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 Glucose of more than 200 mg/dL in a nonstressed, ambulatory subject supports the diagnosis of Diabetes Mellitus. Glucose Poct Glucometerson 0 10-04-2023 Commemt1 Glu2: Cleaned Meter [facility] Comment on above: Result Comment: PERF ORMED BY: [place] [address] PATHOLOGIST DISC JOCKEY DENIS PARADA M.D. Performed By: #### C , BMP #### [address] Glucose [Mass/Vol] 116 mg/dL Normal [facility] Comment on above: Result Comment: [place] Glucose Reference Range is dependent on time and content of last meal. Glucose of more than 200 mg/dL in a nonstressed, ambulatory subject supports the diagnosis of Diabetes Mellitus. Performed By: #### C BC, BMP #### [facility] [address] [place] [address] No Panel InformationOrdered By: Donovan La on 10-04-2023 Bedside Glucose Comment Glu2: cleaned meter [facility] Glucose Poct Glucometerson 0 10-03-2023 Glucose [Mass/Vol] 119 mg/dL Normal [facility] Comment on above: Result Comment: [place] om Glucose Reference Range is dependent on time and content of last meal. Glucose of more than 200 mg/dL in a nonstressed, ambulatory subject supports the diagnosis of Diabetes Mellitus. PERFORMED BY: [place] [id number] PATHOLOGIST DISC JOCKEY DENIS PARADA M.D. Performed By: #### G LULS #### Point of Care testing , Glucose [Mass/Vol] 119 mg/dL Normal [facility] Comment on above: Result Comment: [place] Glucose Reference Range is dependent on time and content of last meal. Glucose of more than 200 mg/dL in a nonstressed, ambulatory subject supports the diagnosis of Diabetes Mellitus. PERFORMED BY: [place] [address] PATHOLOGIST DISC JOCKEY DENIS PARADA M.D. Performed By: #### C BC, BMP #### [address] Glucose Poct Glucometerson 0 10-02-2023 Glucose [Mass/Vol] 112 mg/dL Normal [facility] Comment on above: Result Comment: [facility] Glucose Reference Range is dependent on time and content of last meal. Glucose of more than 200 mg/dL in a nonstressed, ambulatory subject supports the diagnosis of Diabetes Mellitus. PERFORMED BY: [place] [address] PATHOLOGIST DISC JOCKEY DENIS PARADA M.D. Performed By: #### G LULS #### Point of Care testing , Glucose [Mass/Vol] 111 mg/dL Normal [facility] Comment on above: Result Comment: [place] Glucose Reference Range is dependent on time and content of last meal. Glucose of more than 200 mg/dL in a nonstressed, ambulatory subject supports the diagnosis of Diabetes Mellitus. PERFORMED BY: [place] [address] PATHOLOGIST DISC JOCKEY DENIS PARADA M.D. Performed By: #### G LULS #### Point of Care testing , CT head/brain wo conon 10-01 CT head/brain wo [facility] [address] [place] [address] [place] [address] CT Scan Report Signed Patient: Janice Shultz MR#: [id number] 7 : 1945 Acct:[id number] Age/Sex: 78 / M ADM Date: 09/25/23 Loc: Room: 6R8845-1 Type: ADM IN Attending Dr: Donovan La [...] Kelvin Vasquez M.D.10/01/2023 9:43 AM Dictation Location: [place] [address] Transcribed By: [facility] 10/01/2343 Dictated By: Kelvin Vasquez II, MD 10/01/2341 Signed By: 10/01/23942 Normal [facility] Glucose Poct Glucometerson 0 10-01-2023 Commemt1 Glu2: Cleaned Meter Normal [facility] Comment on above: Result Comment: PERF ORMED BY: [address] [place] [address] PATHOLOGIST DISC JOCKEY DENIS PARADA M.D. Performed By: #### G ALEKSANDAR #### Point of Care testing , Glucose [Mass/Vol] 111 mg/dL Normal [facility] Comment on above: Result Comment: [place] om Glucose Reference Range is dependent on time and content of last meal. Glucose of more than 200 mg/dL in a nonstressed, ambulatory subject supports the diagnosis of Diabetes Mellitus. Performed By: #### G ALEKSANDAR #### Point of Care testing , Glucose [Mass/Vol] 112 mg/dL Normal [facility] Comment on above: Result Comment: [place] om Glucose Reference Range is dependent on time and content of last meal. Glucose of more than 200 mg/dL in a nonstressed, ambulatory subject supports the diagnosis of Diabetes Mellitus. PERFORMED BY: [address] [place] [id number] PATHOLOGIST DISC JOCKEY DENIS PARADA M.D. Performed By: #### G ALEKSANDAR #### Point of Care testing , Basic Metabolic Panelon 09-13 Anion gap [Moles/Vol] 10.5 mmol/L Normal 6.0-15.0 [facility] Comment on above: Performed By: #### C BC, BMP #### [facility] [address] [place] [address] [place] Calcium [Mass/Vol] 9.3 mg/dL Normal 8.6-10.3 [facility] Comment on above: Performed By: #### C BC, BMP #### [facility] [address] [place] [id number] [place] Chloride [Moles/Vol] 102 mmol/L Normal 98-107 [facility] Comment on above: Performed By: #### C BC, BMP #### [facility] [address] [place] [address] [place] CO2 [Moles/Vol] 26.8 mmol/L Normal 21.0-31.0 [facility] Comment on above: Performed By: #### C BC, BMP #### [address] Creatinine [Mass/Vol] 1.15 mg/dL Normal 0.70-1.30 [facility] Comment on above: Performed By: #### C BC, BMP #### [address] Creatinine Clr Calc Pharmacy 58.20 [facility] Comment on above: Result Comment: PERF ORMED BY: [place] [address] PATHOLOGIST DISC JOCKEY DENIS PARADA M.D. Performed By: #### C BC, BMP #### [address] GFR/1.73 sq M.predicted MDRD (S/P/Bld) [Vol rate/Area] mL/min/{1.73_m2} [facility] Comment on above: Performed By: #### C BC, BMP #### [address] Glucose [Mass/Vol] 105 mg/dL High 70-100 [facility] Comment on above: Result Comment: [place] Glucose Reference Range is dependent on time and content of last meal. Glucose of more than 200 mg/dL in a nonstressed, ambulatory subject supports the diagnosis of Diabetes Mellitus. ADA recommended reference range Performed By: #### C BC, BMP #### [address] Potassium [Moles/Vol] 4.3 mmol/L Normal 3.5-5.1 [facility] Comment on above: Performed By: #### C BC, BMP #### [address] Sodium [Moles/Vol] 135 mmol/L Low 136-145 [facility] Comment on above: Performed By: #### C BC, BMP #### [facility] [address] Urea nitrogen [Mass/Vol] 25 mg/dL Normal 7-25 [facility] Comment on above: Performed By: #### C BC, BMP #### [address] Basophils Auto (Bld) [#/Vol] Ordered By: Tracy Fernandez on 09-30-2023 Basophils (Bld) [#/Vol] 0.1 10*3/uL 0.0-0.2 [facility] Basophils/100 WBC Auto (Bld) Ordered By: Tracy Fernandez on 09-30-2023 Basophils/100 WBC (Bld) 0.8 % . [facility] Calcium [Mass/volume] in Ser um or PlasmaOrdered By: Tracy Fernandez on 09-30-2023 Calcium [Mass/Vol] 9.3 mg/dL 8.6-10.3 [facility] Carbon dioxide, total [Moles /volume] in Serum or PlasmaOrdered By: Tracy Fernandez on 09-30-2023 CO2 [Moles/Vol] 26.8 mmol/L 21.0-31.0 [facility] Chloride [Moles/volume] in S papi or PlasmaOrdered By: Tracy Fernandez on 09-30-2023 Chloride [Moles/Vol] 102 mmol/L 98-107 [facility] Complete Blood Count Auto Di ffon 09-30-2023 Basophils (Bld) [#/Vol] 0.1 10*3/uL Normal 0.0-0.2 [facility] Comment on above: Result Comment: PERF ORMED BY: [place] [address] PATHOLOGIST DISC JOCKEY DENIS PARADA M.D. Performed By: #### C JAZLYN, BMP #### [address] Basophils/100 WBC (Bld) 0.8 % Normal . [facility] Comment on above: Performed By: #### C BC, BMP #### [facility] [address] [place] [address] [place] Eosinophils (Bld) [#/Vol] 0.2 10*3/uL Normal 0.0-0.45 [facility] Comment on above: Performed By: #### C BC, BMP #### [facility] [address] [place] [address] [place] Eosinophils/100 WBC (Bld) 2.1 % Normal . [facility] Comment on above: Performed By: #### C BC, BMP #### [address] Erythrocyte distribution width (RBC) [Ratio] 13.9 % Normal 12.0-14.8 [facility] Comment on above: Performed By: #### C BC, BMP #### [address] Hematocrit (Bld) [Volume fraction] 42.2 % Normal 38.8-50.0 [facility] Comment on above: Performed By: #### C BC, BMP #### [address] Hemoglobin (Bld) [Mass/Vol] 13.9 g/dL Normal 13.0-17.0 [facility] Comment on above: Performed By: #### C BC, BMP #### [address] Lymphocytes (Bld) [#/Vol] 2.0 10*3/uL Normal 1.00-4.8 [facility] Comment on above: Performed By: #### C BC, BMP #### [place] [address] [place] Lymphocytes/100 WBC (Bld) 21.6 % Normal . [facility] Comment on above: Performed By: #### C BC, BMP #### [address] MCH (RBC) [Entitic mass] 27.9 pg Normal 27.5-35.2 [facility] Comment on above: Performed By: #### C BC, BMP #### [address] [place] [address] [place] MCV (RBC) [Entitic vol] 84.7 fL Normal 83.5-101 [facility] Comment on above: Performed By: #### C BC, BMP #### [address] Mean Corpuscular HGB Conc 32.9 g/dL Normal 32.5-35.6 [facility] Comment on above: Performed By: #### C BC, BMP #### [address] Monocytes (Bld) [#/Vol] 0.7 10*3/uL Normal 0.0-0.8 [facility] Comment on above: Performed By: #### C BC, BMP #### [address] Monocytes/100 WBC (Bld) 7.8 % Normal . [facility] Comment on above: Performed By: #### C BC, BMP #### [address] Neutrophils (Bld) [#/Vol] 6.2 10*3/uL Normal 1.8-7.7 [facility] Comment on above: Performed By: #### C BC, BMP #### [address] Neutrophils/100 WBC (Bld) 67.7 % Normal . [facility] Comment on above: Performed By: #### C BC, BMP #### [address] NRBC% 0.1 /100{WBC} Normal 0-0.5 [facility] Comment on above: Performed By: #### C BC, BMP #### [address] Platelet mean volume (Bld) [Entitic vol] 8.6 fL Normal 6.6-10.1 [facility] Comment on above: Performed By: #### C BC, BMP #### [address] Platelets (Bld) [#/Vol] 309 10*3/uL Normal 150-450 [facility] Comment on above: Performed By: #### C JAZLYN, BMP #### [facility] [address] RBC (Bld) [#/Vol] 4.99 10*6/uL Normal 3.90-5.60 [facility] Comment on above: Performed By: #### C JAZLYN, BMP #### [facility] [address] WBC (Bld) [#/Vol] 9.2 10*3/uL Normal 4.1-10.5 [facility] Comment on above: Performed By: #### C JAZLYN, BMP #### [address] Creatinine [Mass/volume] in Serum or PlasmaOrdered By: Tracy Fernandez on 09-30-2023 Creatinine [Mass/Vol] 1.15 mg/dL 0.70-1.30 [facility] Eosinophils Auto (Bld) [#/Vo l]Ordered By: Tracy Fernandez on 09-30-2023 Eosinophils (Bld) [#/Vol] 0.2 10*3/uL 0.0-0.45 [facility] Eosinophils/100 WBC Auto (Bl d)Ordered By: Tracy Fernandez on 09-30-2023 Eosinophils/100 WBC (Bld) 2.1 % . [facility] Erythrocyte distribution wid th Auto (RBC) [Ratio]Ordered By: Tracy Fernandez on 09-30-2023 Erythrocyte distribution width (RBC) [Ratio] 13.9 % 12.0-14.8 [facility] Glucose Poct Glucometerson 0 09-30-2023 Commemt1 Glu2: Cleaned Meter Normal [facility] Comment on above: Result Comment: PERF ORMED BY: [place] [address] PATHOLOGIST DISC JOCKEY DENIS PARADA M.D. Performed By: #### G LUGLENN #### Point of Care testing , Glucose [Mass/Vol] 94 mg/dL Normal [facility] Comment on above: Result Comment: [place] om Glucose Reference Range is dependent on time and content of last meal. Glucose of more than 200 mg/dL in a nonstressed, ambulatory subject supports the diagnosis of Diabetes Mellitus. Performed By: #### G LULS #### Point of Care testing , Glucose [Mass/Vol] 98 mg/dL Normal [facility] Comment on above: Result Comment: [place] om Glucose Reference Range is dependent on time and content of last meal. Glucose of more than 200 mg/dL in a nonstressed, ambulatory subject supports the diagnosis of Diabetes Mellitus. PERFORMED BY: [facility] [address] [place] [address] PATHOLOGIST DISC JOCKEY DENSI PARADA M.D. Performed By: #### G LULS #### Point of Care testing , Glucose [Mass/Vol] 112 mg/dL Normal [facility] Comment on above: Result Comment: [place] om Glucose Reference Range is dependent on time and content of last meal. Glucose of more than 200 mg/dL in a nonstressed, ambulatory subject supports the diagnosis of Diabetes Mellitus. PERFORMED BY: [facility] [address] [place] [address] PATHOLOGIST DISC JOCKEY DENIS PARADA M.D. Performed By: #### G LULS #### Point of Care testing , Glucose [Mass/volume] in Ser um or PlasmaOrdered By: Tracy Fernandez on 09-30-2023 Glucose [Mass/Vol] 105 mg/dL 70-100 [facility] Comment on above: ADA recommended refe rence rangeRandom Glucose Reference Range is dependent on time and content of last meal. Glucose of more than 200 mg/dL in a nonstressed, ambulatory subject supports the diagnosis of Diabetes Mellitus. Hematocrit Auto (Bld) [Volum e fraction]Ordered By: Tracy Fernandez on 09-30-2023 Hematocrit (Bld) [Volume fraction] 42.2 % 38.8-50.0 [facility] Hemoglobin [Mass/volume] in BloodOrdered By: Tracy Fernandez on 09-30-2023 Hemoglobin (Bld) [Mass/Vol] 13.9 g/dL 13.0-17.0 [facility] Leukocytes [#/volume] correc alysia for nucleated erythrocytes in Blood by Automated counOrdered By: Tracy Fernandez on 09-30-2023 WBC corrected for nucl RBC Auto (Bld) [#/Vol] 9.2 10*3/uL 4.1-10.5 [facility] Lymphocytes Auto (Bld) [#/Vo l]Ordered By: Tracy Fernandez on 09-30-2023 Lymphocytes (Bld) [#/Vol] 2.0 10*3/uL 1.00-4.8 [facility] Lymphocytes/100 WBC Auto (Bl d)Ordered By: Tracy Fernandez on 09-30-2023 Lymphocytes/100 WBC (Bld) 21.6 % . [facility] MCH Auto (RBC) [Entitic mass ]Ordered By: Tracy Fernandez on 09-30-2023 MCH (RBC) [Entitic mass] 27.9 pg 27.5-35.2 [facility] MCHC Auto (RBC) [Mass/Vol]Or dered By: Tracy Fernandez on 09-30-2023 MCHC (RBC) [Mass/Vol] 32.9 g/dL 32.5-35.6 [facility] MCV Auto (RBC) [Entitic vol] Ordered By: Tracy Fernandez on 09-30-2023 MCV (RBC) [Entitic vol] 84.7 fL 83.5-101 [facility] Monocytes Auto (Bld) [#/Vol] Ordered By: Tracy Fernandez on 09-30-2023 Monocytes (Bld) [#/Vol] 0.7 10*3/uL 0.0-0.8 [facility] Monocytes/100 WBC Auto (Bld) Ordered By: Tracy Fernandez on 09-30-2023 Monocytes/100 WBC (Bld) 7.8 % . [facility] Neutrophils Auto (Bld) [#/Vo l]Ordered By: Tracy Fernandez on 09-30-2023 Neutrophils (Bld) [#/Vol] 6.2 10*3/uL 1.8-7.7 [facility] Neutrophils/100 WBC Auto (Bl d)Ordered By: Tracy Fernandez on 09-30-2023 Neutrophils/100 WBC (Bld) 67.7 % . [facility] No Panel InformationOrdered By: Tracy Fernandez on 09-30-2023 Estimated GFR (CKD-EPI) > 60.0 mL/Min [facility] Creatinine Clearance (Chem 58.20 [facility] Nucleated erythrocytes [Pres ence] in Blood by Automated countOrdered By: Tracy Fernandez on 09-30-2023 Nucleated RBC Auto Ql (Bld) 0.1 /100{WBC} 0-0.5 [facility] Platelet mean volume Auto (B ld) [Entitic vol]Ordered By: Tracy Fernandez on 09-30-2023 Platelet mean volume (Bld) [Entitic vol] 8.6 fL 6.6-10.1 [facility] Platelets Auto (Bld) [#/Vol] Ordered By: Tracy Fernandez on 09-30-2023 Platelets (Bld) [#/Vol] 309 10*3/uL 150-450 [facility] Potassium [Moles/volume] in Serum or PlasmaOrdered By: Tracy Fernandez on 09-30-2023 Potassium [Moles/Vol] 4.3 mmol/L 3.5-5.1 [facility] RBC Auto (Bld) [#/Vol]Ordere d By: Tracy Fernandez on 09-30-2023 RBC (Bld) [#/Vol] 4.99 10*6/uL 3.90-5.60 [facility] Serum or plasma anion gap de terminationOrdered By: Tracy Fernandez on 09-30-2023 Anion gap [Moles/Vol] 10.5 mmol/L 6.0-15.0 [facility] Sodium [Moles/volume] in Ser um or PlasmaOrdered By: Tracy Fernandez on 09-30-2023 Sodium [Moles/Vol] 135 mmol/L 136-145 [facility] Urea nitrogen [Mass/volume] in Serum or PlasmaOrdered By: Tracy Fernandez on 09-30-2023 Urea nitrogen [Mass/Vol] 25 mg/dL 7-25 [facility] WBC Auto (Bld) [#/Vol]Ordere d By: Tracy Rebecca on 09-30-2023 WBC (Bld) [#/Vol] 9.2 10*3/uL 4.1-10.5 [facility] Glucose Poct Glucometerson 0 09-29-2023 Commemt1 Glu2: Cleaned Meter Normal [facility] Comment on above: Result Comment: PERF ORMED BY: [facility] [address] [place] [address] PATHOLOGIST DISC JOCKEY DENIS PARADA M.D. Performed By: #### G LULS #### Point of Care testing , Glucose [Mass/Vol] 112 mg/dL Normal [facility] Comment on above: Result Comment: [place] om Glucose Reference Range is dependent on time and content of last meal. Glucose of more than 200 mg/dL in a nonstressed, ambulatory subject supports the diagnosis of Diabetes Mellitus. Performed By: #### G LULS #### Point of Care testing , Glucose [Mass/Vol] 99 mg/dL Normal [facility] Comment on above: Result Comment: [place] om Glucose Reference Range is dependent on time and content of last meal. Glucose of more than 200 mg/dL in a nonstressed, ambulatory subject supports the diagnosis of Diabetes Mellitus. PERFORMED BY: [facility] [address] [place] [address] PATHOLOGIST DISC JOCKEY DENIS PARADA M.D. Performed By: #### G LULS #### Point of Care testing , Glucose Poct Glucometerson 0 09-28-2023 Glucose [Mass/Vol] 96 mg/dL Normal [facility] Comment on above: Result Comment: [place] om Glucose Reference Range is dependent on time and content of last meal. Glucose of more than 200 mg/dL in a nonstressed, ambulatory subject supports the diagnosis of Diabetes Mellitus. PERFORMED BY: [facility] [address] [place] [address] PATHOLOGIST DISC JOCKEY DENIS PARADA M.D. Performed By: #### G LULS #### Point of Care testing , Glucose [Mass/Vol] 116 mg/dL Normal [facility] Comment on above: Result Comment: [facility] Glucose Reference Range is dependent on time and content of last meal. Glucose of more than 200 mg/dL in a nonstressed, ambulatory subject supports the diagnosis of Diabetes Mellitus. PERFORMED BY: [place] [address] PATHOLOGIST DISC JOCKEY DENIS PARADA M.D. Performed By: #### C BC, BMP #### [address] head/brain wo conon 09-27 CT head/brain wo con [facility] [place] [address] [place] [address] CT Scan Report Signed with Addenda Patient: Janice Shultz MR#: [id number] 7 : 1945 Acct:[id number] Age/Sex: 78 / M ADM Date: 09/25/23 Loc: Room: [address] [place] [address] Type: ADM IN Attending Dr: Donovan La [...] Dalton Jr., D.O.09/27/2023 2:20 PM Dictation Location: [place] [address] Addendum Dictated By: Hernan Dalton Jr DO [...] Dalton Jr., D.O.09/27/2023 1:40 PM Dictation Location: [place] [address] Transcribed By: [facility] 09/27/23 1340 Dictated By: Hernan Dalton Jr, DO 09/27/23 1330 Signed By: 09/27/23 1340 Normal [facility] Glucose Poct Glucometerson 0 09-27-2023 Glucose [Mass/Vol] 104 mg/dL Normal [facility] Comment on above: Result Comment: [facility] Glucose Reference Range is dependent on time and content of last meal. Glucose of more than 200 mg/dL in a nonstressed, ambulatory subject supports the diagnosis of Diabetes Mellitus. PERFORMED BY: [facility] [address] PATHOLOGIST DISC JOCKEY DENIS PARADA M.D. Performed By: #### G ALEKSANDAR #### Point of Care testing , Glucose [Mass/Vol] 114 mg/dL Normal [facility] Comment on above: Result Comment: [place] om Glucose Reference Range is dependent on time and content of last meal. Glucose of more than 200 mg/dL in a nonstressed, ambulatory subject supports the diagnosis of Diabetes Mellitus. PERFORMED BY: [place] [address] PATHOLOGIST DISC JOCKEY DENIS PARADA M.D. Performed By: #### C BC, BMP #### [facility] [address] [place], [place] [id number] [facility] Alanine aminotransferase [En zymatic activity/volume] in Serum or PlasmaOrdered By: Donovan La on 09-26-2023 ALT [Catalytic activity/Vol] 48 U/L 7-52 [facility] Albumin [Mass/volume] in Ser um or Plasma by Bromocresol green (BCG) dye binding methoOrdered By: Adventismanish aL on 09-26-2023 Albumin BCG dye [Mass/Vol] 3.7 g/dL 3.5-5.7 [facility] Alkaline phosphatase [Enzyma tic activity/volume] in Serum or PlasmaOrdered By: Donovan La on 09-26-2023 ALP [Catalytic activity/Vol] 47 U/L 34-104 [facility] Aspartate aminotransferase [ Enzymatic activity/volume] in Serum or PlasmaOrdered By: Adventism [facility] on 09-26-2023 AST [Catalytic activity/Vol] 22 U/L 13-39 [facility] Bilirubin.total [Mass/volume ] in Serum or PlasmaOrdered By: Donovan La on 09-26-2023 Bilirubin [Mass/Vol] 0.7 mg/dL 0.3-1.0 [facility] Complete Blood Count Auto Di ffon 09-26-2023 Basophils (Bld) [#/Vol] 0.1 10*3/uL Normal 0.0-0.2 [facility] Comment on above: Result Comment: PERF ORMED BY: [place] [address] PATHOLOGIST DISC JOCKEY DENIS PARADA M.D. Performed By: #### C MP, CBC, PAB #### [facility] [address] [place], [place] [id number] [place] Basophils/100 WBC (Bld) 1.1 % Normal . [facility] Comment on above: Performed By: #### C MP, CBC, PAB #### [place] [address] [place] Eosinophils (Bld) [#/Vol] 0.2 10*3/uL Normal 0.0-0.45 [facility] Comment on above: Performed By: #### C MP, CBC, PAB #### [address] Eosinophils/100 WBC (Bld) 2.1 % Normal . [facility] Comment on above: Performed By: #### C MP, CBC, PAB #### [address] Erythrocyte distribution width (RBC) [Ratio] 13.5 % Normal 12.0-14.8 [facility] Comment on above: Performed By: #### C MP, CBC, PAB #### [address] Hematocrit (Bld) [Volume fraction] 40.4 % Normal 38.8-50.0 [facility] Comment on above: Performed By: #### C MP, CBC, PAB #### [address] Hemoglobin (Bld) [Mass/Vol] 13.7 g/dL Normal 13.0-17.0 [facility] Comment on above: Performed By: #### C MP, CBC, PAB #### [place] [address] [place] Lymphocytes (Bld) [#/Vol] 1.8 10*3/uL Normal 1.00-4.8 [facility] Comment on above: Performed By: #### C MP, CBC, PAB #### [place] [address] [place] Lymphocytes/100 WBC (Bld) 19.4 % Normal . [facility] Comment on above: Performed By: #### C MP, CBC, PAB #### [address] MCH (RBC) [Entitic mass] 28.5 pg Normal 27.5-35.2 [facility] Comment on above: Performed By: #### C MP, CBC, PAB #### [address] MCV (RBC) [Entitic vol] 84.0 fL Normal 83.5-101 [facility] Comment on above: Performed By: #### C MP, CBC, PAB #### [address] Mean Corpuscular HGB Conc 33.9 g/dL Normal 32.5-35.6 [facility] Comment on above: Performed By: #### C MP, CBC, PAB #### [address] Monocytes (Bld) [#/Vol] 0.9 10*3/uL High 0.0-0.8 [facility] Comment on above: Performed By: #### C MP, CBC, PAB #### [address] Monocytes/100 WBC (Bld) 9.4 % Normal . [facility] Comment on above: Performed By: #### C MP, CBC, PAB #### [address] Neutrophils (Bld) [#/Vol] 6.2 10*3/uL Normal 1.8-7.7 [facility] Comment on above: Performed By: #### C MP, CBC, PAB #### [address] Neutrophils/100 WBC (Bld) 68.0 % Normal . [facility] Comment on above: Performed By: #### C MP, CBC, PAB #### [address] NRBC% 0.0 /100{WBC} Normal 0-0.5 [facility] Comment on above: Performed By: #### C MP, CBC, PAB #### [address] Platelet mean volume (Bld) [Entitic vol] 8.4 fL Normal 6.6-10.1 [facility] Comment on above: Performed By: #### C MP, CBC, PAB #### [facility] [address] Platelets (Bld) [#/Vol] 244 10*3/uL Normal 150-450 [facility] Comment on above: Performed By: #### C MP, CBC, PAB #### [facility] [address] [place] [address] RBC (Bld) [#/Vol] 4.81 10*6/uL Normal 3.90-5.60 [facility] Comment on above: Performed By: #### C MP, CBC, PAB #### [address] WBC (Bld) [#/Vol] 9.1 10*3/uL Normal 4.1-10.5 [facility] Comment on above: Performed By: #### C MP, CBC, PAB #### [address] Comprehensive Metabolic Pane tejas 09-26-2023 Albumin [Mass/Vol] 3.7 g/dL Normal 3.5-5.7 [facility] Comment on above: Performed By: #### C MP, CBC, PAB #### [address] Albumin/Globulin [Mass ratio] 1.2 {ratio} Normal [facility] Comment on above: Performed By: #### C MP, CBC, PAB #### [address] ALP [Catalytic activity/Vol] 47 U/L Normal 34-104 [facility] Comment on above: Performed By: #### C MP, CBC, PAB #### [address] ALT [Catalytic activity/Vol] 48 U/L Normal 7-52 [facility] Comment on above: Performed By: #### C MP, CBC, PAB #### [facility] [address] [place] [address] [place] Anion gap [Moles/Vol] 12.8 mmol/L Normal 6.0-15.0 [facility] Comment on above: Performed By: #### C MP, CBC, PAB #### [facility] [address] [place] [address] [place] AST [Catalytic activity/Vol] 22 U/L Normal 13-39 [facility] Comment on above: Performed By: #### C MP, CBC, PAB #### [facility] [address] [place] [address] [place] Bilirubin [Mass/Vol] 0.7 mg/dL Normal 0.3-1.0 [facility] Comment on above: Performed By: #### C MP, CBC, PAB #### [facility] [address] Calcium [Mass/Vol] 8.8 mg/dL Normal 8.6-10.3 [facility] Comment on above: Performed By: #### C MP, CBC, PAB #### [facility] [address] [place] [phone] [place] Chloride [Moles/Vol] 104 mmol/L Normal 98-107 [facility] Comment on above: Performed By: #### C MP, CBC, PAB #### [facility] [address] [place] [address] [place] CO2 [Moles/Vol] 23.1 mmol/L Normal 21.0-31.0 [facility] Comment on above: Performed By: #### C MP, CBC, PAB #### [facility] [address] [place] [address] [place] Creatinine [Mass/Vol] 0.93 mg/dL Normal 0.70-1.30 [facility] Comment on above: Performed By: #### C MP, CBC, PAB #### [facility] [address] [place] [phone] [place] Creatinine Clr Calc Pharmacy 71.97 Normal [facility] Comment on above: Performed By: #### C MP, CBC, PAB #### [facility] [address] [place] [address] [place] GFR/1.73 sq M.predicted MDRD (S/P/Bld) [Vol rate/Area] mL/min/{1.73_m2} [facility] Comment on above: Performed By: #### C MP, CBC, PAB #### [facility] [address] Globulin (S) [Mass/Vol] 3.2 g/dL Normal [facility] Comment on above: Performed By: #### C MP, CBC, PAB #### [facility] [address] Glucose [Mass/Vol] 132 mg/dL High 70-100 [facility] Comment on above: Result Comment: [place] Glucose Reference Range is dependent on time and content of last meal. Glucose of more than 200 mg/dL in a nonstressed, ambulatory subject supports the diagnosis of Diabetes Mellitus. ADA recommended reference range Performed By: #### C MP, CBC, PAB #### [address] Potassium [Moles/Vol] 3.9 mmol/L Normal 3.5-5.1 [facility] Comment on above: Performed By: #### C MP, CBC, PAB #### [place] [address] [place] Protein [Mass/Vol] 6.9 g/dL Normal 6.4-8.9 [facility] Comment on above: Performed By: #### C MP, CBC, PAB #### [place] [address] [place] Sodium [Moles/Vol] 136 mmol/L Normal 136-145 [facility] Comment on above: Performed By: #### C MP, CBC, PAB #### [facility] [address] [place] [address] [place] Urea nitrogen [Mass/Vol] 23 mg/dL Normal 7-25 [facility] Comment on above: Performed By: #### C MP, CBC, PAB #### [address] [place] [address] [facility] Globulin Calc (S) [Mass/Vol] Ordered By: Donovan La on 09-26-2023 Globulin (S) [Mass/Vol] 3.2 g/dL [facility] Glucose Poct Glucometerson 0 09-26-2023 Glucose [Mass/Vol] 175 mg/dL Normal [facility] Comment on above: Result Comment: [place] Glucose Reference Range is dependent on time and content of last meal. Glucose of more than 200 mg/dL in a nonstressed, ambulatory subject supports the diagnosis of Diabetes Mellitus. PERFORMED BY: [place] [address] PATHOLOGIST DISC JOCKEY DENIS PARADA M.D. Performed By: #### C BC, BMP #### [address] Glucose [Mass/Vol] 125 mg/dL Normal [facility] Comment on above: Result Comment: [place] Glucose Reference Range is dependent on time and content of last meal. Glucose of more than 200 mg/dL in a nonstressed, ambulatory subject supports the diagnosis of Diabetes Mellitus. PERFORMED BY: [place] [address] PATHOLOGIST DISC JOCKEY DENIS PARADA M.D. Performed By: #### C BC, BMP #### [place] [id number] [place] Prealbuminon 09-26-2023 Prealbumin [Mass/Vol] 22.8 mg/dL Normal 17.0-34.0 [facility] Comment on above: Result Comment: PERF ORMED BY: [place] [address] PATHOLOGIST DISC JOCKEY DENIS PARADA M.D. Performed By: #### C MP, CBC, PAB #### [place] [id number] [place] Prealbumin [Mass/volume] in Serum or PlasmaOrdered By: Donovan La on 09-26-2023 Prealbumin [Mass/Vol] 22.8 mg/dL 17.0-34.0 [facility] Protein [Mass/volume] in Ser um or PlasmaOrdered By: Donovan La on 09-26-2023 Protein [Mass/Vol] 6.9 g/dL 6.4-8.9 [facility] Serum or plasma albumin/glob ulin mass ratioOrdered By: Donovan La on 09-26-2023 Albumin/Globulin [Mass ratio] 1.2 {ratio} [facility] CBC AND AUTO DIFFon 09-25-19 24 ABSOLUTE BASOPHIL 0.1 X10E9/L Normal 0.0-0.2 [facility] Comment on above: Performed By: #### C WINSOME GARCIA, 17689-5 #### [facility] ([id number]) [address] [place] [address] ABSOLUTE NEUTROPHIL 7.0 X10E9/L High 1.5-6.6 [facility] Comment on above: Performed By: #### C RADHA CMP, 52690-3 #### [facility] ([id number]) [address] [place] [address] Basophils/100 WBC (Bld) 0.6 % Normal [facility] Comment on above: Performed By: #### C RADHA CMP, 01460-0 #### [facility] ([id number]) [address] [place] [address] Eosinophils (Bld) [#/Vol] 0.2 10*3/uL Normal 0.0-0.4 [facility] Comment on above: Performed By: #### C BCA, CMP, 96730-9 #### [facility] ([id number]) [address] [place] [address] Eosinophils/100 WBC (Bld) 2.2 % Normal [facility] Comment on above: Performed By: #### C BCA, CMP, 93660-9 #### [facility] ([id number]) [address] [place] [address] Erythrocyte distribution width (RBC) [Ratio] 13.6 % Normal 11.5-15.0 [facility] Comment on above: Performed By: #### Susy GARCIA CMP, 21661-0 #### [facility] ([id number]) [address] [address] [place] [address] Hematocrit (Bld) [Volume fraction] 44.0 % Normal 39-49 [facility] Comment on above: Performed By: #### Susy GARCIA CMP, 77890-1 #### [facility] ([id number]) [address] [address] [place] [address] Hemoglobin (Bld) [Mass/Vol] 14.7 g/dL Normal 13.0-17.0 [facility] Comment on above: Performed By: #### Susy GARCIA CMP, 38232-2 #### [facility] ([id number]) [address] [address] [place] [address] Lymphocytes (Bld) [#/Vol] 1.5 10*3/uL Normal 1.0-3.5 [facility] Comment on above: Performed By: #### Susy GARCIA CMP, 27230-5 #### [facility] ([id number]) [address] [address] [place] [address] Lymphocytes/100 WBC (Bld) 15.5 % Normal [facility] Comment on above: Performed By: #### Susy GARCIA CMP, 71738-2 #### [facility] ([id number]) [address] [place] [address] MCH (RBC) [Entitic mass] 28.4 pg Normal 27-34 [facility] Comment on above: Performed By: #### Susy GARCIA CMP, 19381-0 #### [facility] ([id number]) [address] [address] [place] [address] MCHC (RBC) [Mass/Vol] 33.4 g/dL Normal 32-36 [facility] Comment on above: Performed By: #### Susy GARCIA CMP, 61247-4 #### [facility] ([id number]) [address] [place] [address] MCV (RBC) [Entitic vol] 85 fL Normal 80-100 [facility] Comment on above: Performed By: #### Susy GARCIA CMP, 01619-2 #### [facility] ([id number]) [address] [place] [address] Monocytes (Bld) [#/Vol] 0.7 10*3/uL Normal 0-0.9 [facility] Comment on above: Performed By: #### Susy GARCIA CMP, 75862-6 #### [facility] ([id number]) [address] [place] [address] Monocytes/100 WBC (Bld) 7.4 % Normal [facility] Comment on above: Performed By: #### Susy GARCIA CMP, 60130-4 #### [facility] ([id number]) [address] [place] [address] Neutrophils/100 WBC (Bld) 74.3 % Normal [facility] Comment on above: Performed By: #### Susy GARCIA CMP, 35880-1 #### [facility] ([id number]) [address] [place] [address] Platelet mean volume (Bld) [Entitic vol] 8.7 fL Normal 7-12 [facility] Comment on above: Performed By: #### Susy GARCIA CMP, 69073-6 #### [facility] ([id number]) [address] [place] [address] Platelets (Bld) [#/Vol] 234 10*3/uL Normal 150-450 [facility] Comment on above: Performed By: #### C BCA, CMP, 72569-9 #### [facility] ([id number]) [address] [place] [address] RBC COUNT 5.19 X10E12/L Normal 4.10-5.70 [facility] Comment on above: Performed By: #### C BCA, CMP, 51055-4 #### [facility] ([id number]) [address] [place] [address] WBC (Bld) [#/Vol] 9.4 10*3/uL Normal 4.0-11.0 [facility] Comment on above: Performed By: #### C BCA, CMP, 44888-3 #### [facility] ([id number]) [address] [place] [address] COMPREHENSIVE METABOLIC PANE Tejas 09-25-2023 Albumin [Mass/Vol] 3.8 g/dL Normal 3.2-5.3 [facility] Comment on above: Performed By: #### C BCA, CMP, 59144-8 #### [facility] ([id number]) [address] [place] [address] ALP [Catalytic activity/Vol] 48 U/L Normal 39-130 [facility] Comment on above: Performed By: #### C BCA, CMP, 02254-8 #### [facility] ([id number]) [address] [place] [address] ALT [Catalytic activity/Vol] 65 U/L High 0-40 [facility] Comment on above: Performed By: #### C BCA, CMP, 39833-9 #### [facility] ([id number]) [address] [place] [address] Anion gap [Moles/Vol] 10 mmol/L Normal 5-15 [facility] Comment on above: Performed By: #### C BCA, CMP, 89889-2 #### [facility] ([id number]) [address] [place] [address] AST [Catalytic activity/Vol] 48 U/L High 0-41 [facility] Comment on above: Performed By: #### C BCA, CMP, 60541-2 #### [facility] ([id number]) [address] [place] [address] Bilirubin [Mass/Vol] 0.8 mg/dL Normal 0.3-1.2 [facility] Comment on above: Performed By: #### C BCA, CMP, 99990-9 #### [facility] ([id number]) [address] [place] [address] Calcium [Mass/Vol] 8.9 mg/dL Normal 8.5-10.5 [facility] Comment on above: Performed By: #### C BCA, CMP, 27656-4 #### [facility] ([id number]) [address] [place] [address] Chloride [Moles/Vol] 101 mmol/L Normal 98-109 [facility] Comment on above: Performed By: #### C BCA, CMP, 66026-7 #### [facility] ([id number]) [address] [place] [address] CO2 [Moles/Vol] 24 mmol/L Normal 22-32 [facility] Comment on above: Performed By: #### C BCA, CMP, 17947-9 #### [facility] ([id number]) [address] [place] [address] Creatinine [Mass/Vol] 0.85 mg/dL Normal 0.60-1.30 [facility] Comment on above: Result Comment: METH OD TRACEABLE TO IDMS STANDARD Performed By: #### C BCA, CMP, 56666-7 #### [facility] ([id number]) [address] [address] [place] [address] eGFR (CKD-EPI) NON-RACE DEPENDENT >90 Normal >59 [facility] Comment on above: Result Comment: Reported eGFR is based on the CKD-EPI 2020 equation that does not use a race coefficient. Performed By: #### C RADHA CMP, 15481-4 #### [facility] ([id number]) [address] [address] [place] [address] Glucose [Mass/Vol] 121 mg/dL High 65-99 [facility] Comment on above: Performed By: #### C RADHA, CMP, 51040-7 #### [facility] ([id number]) [address] [place] [address] Potassium [Moles/Vol] 4.4 mmol/L Normal 3.5-5.0 [facility] Comment on above: Performed By: #### C BCA, CMP, 26921-3 #### [facility] ([id number]) [address] [address] [place] [address] Protein [Mass/Vol] 7.3 g/dL Normal 6.0-8.0 [facility] Comment on above: Performed By: #### C BCA, CMP, 19222-4 #### [facility] ([id number]) [address] [address] [place] [address] Sodium [Moles/Vol] 135 mmol/L Normal 134-146 [facility] Comment on above: Performed By: #### C BCA, CMP, 64845-0 #### [facility] ([id number]) [address] [address] [place] [address] Urea nitrogen [Mass/Vol] 21 mg/dL Normal 5-27 [facility] Comment on above: Performed By: #### C BCA, CMP, 70738-0 #### [facility] ([id number]) [address] [place] [place] [address] Glucose Glucometer (BldC) [M ass/Vol]on 09-25-2023 Glucose [Mass/Vol] 126 mg/dL High 65-99 [facility] Glucose [Mass/Vol] 112 mg/dL High 65-99 [facility] Glucose Poct Glucometerson 0 09-25-2023 Glucose [Mass/Vol] 130 mg/dL Normal [facility] Comment on above: Result Comment: [facility] Glucose Reference Range is dependent on time and content of last meal. Glucose of more than 200 mg/dL in a nonstressed, ambulatory subject supports the diagnosis of Diabetes Mellitus. PERFORMED BY: [place] [address] PATHOLOGIST DISC JOCKEY DENIS PARADA M.D. Performed By: #### C BC, BMP #### [facility] [address] CBC AND AUTO DIFFon 09-24-19 ABSOLUTE BASOPHIL 0.1 X10E9/L Normal 0.0-0.2 [facility] Comment on above: Performed By: #### Susy GARCIA CMP, 07577-1 #### [facility] ([id number]) [address] [place] [address] ABSOLUTE NEUTROPHIL 6.2 X10E9/L Normal 1.5-6.6 [facility] Comment on above: Performed By: #### Susy GARCIA CMP, 96375-5 #### [facility] ([id number]) [address] [place] [address] Basophils/100 WBC (Bld) 0.6 % Normal [facility] Comment on above: Performed By: #### Susy GARCIA CMP, 38290-0 #### [facility] ([id number]) [address] [place] [address] Eosinophils (Bld) [#/Vol] 0.3 10*3/uL Normal 0.0-0.4 [facility] Comment on above: Performed By: #### C RADHA CMP, 60984-0 #### [facility] ([id number]) [address] [place] [address] Eosinophils/100 WBC (Bld) 3.3 % Normal [facility] Comment on above: Performed By: #### C RADHA CMP, 01627-7 #### [facility] ([id number]) [address] [place] [address] Erythrocyte distribution width (RBC) [Ratio] 13.4 % Normal 11.5-15.0 [facility] Comment on above: Performed By: #### Susy GARCIA CMP, 73168-9 #### [facility] ([id number]) [address] [place] [address] Hematocrit (Bld) [Volume fraction] 44.1 % Normal 39-49 [facility] Comment on above: Performed By: #### Susy GARCIA CMP, 36678-9 #### [facility] ([id number]) [address] [place] [address] Hemoglobin (Bld) [Mass/Vol] 14.9 g/dL Normal 13.0-17.0 [facility] Comment on above: Performed By: #### Susy GARCIA CMP, 98871-2 #### [facility] ([id number]) [address] [place] [address] Lymphocytes (Bld) [#/Vol] 1.6 10*3/uL Normal 1.0-3.5 [facility] Comment on above: Performed By: #### C RADHA, CMP, 21978-6 #### [facility] ([id number]) [address] [place] [address] Lymphocytes/100 WBC (Bld) 18.2 % Normal [facility] Comment on above: Performed By: #### C RADHA, CMP, 04380-3 #### [facility] ([id number]) [address] [place] [address] MCH (RBC) [Entitic mass] 28.6 pg Normal 27-34 [facility] Comment on above: Performed By: #### Susy GARCIA CMP, 68835-0 #### [facility] ([id number]) [address] [place] [address] MCHC (RBC) [Mass/Vol] 33.7 g/dL Normal 32-36 [facility] Comment on above: Performed By: #### Susy GARCIA, CMP, 59616-9 #### [facility] ([id number]) [address] [place] [address] MCV (RBC) [Entitic vol] 85 fL Normal 80-100 [facility] Comment on above: Performed By: #### Susy GARCIA CMP, 17936-6 #### [facility] ([id number]) [address] [place] [address] Monocytes (Bld) [#/Vol] 0.6 10*3/uL Normal 0-0.9 [facility] Comment on above: Performed By: #### Susy GARCIA, CMP, 87737-7 #### [facility] ([id number]) [address] [place] [address] Monocytes/100 WBC (Bld) 7.1 % Normal [facility] Comment on above: Performed By: #### Susy GARCIA, CMP, 98268-0 #### [facility] ([id number]) [address] [place] [address] Neutrophils/100 WBC (Bld) 70.8 % Normal [facility] Comment on above: Performed By: #### Susy GARCIA CMP, 05870-6 #### [facility] ([id number]) [address] [place] [address] Platelet mean volume (Bld) [Entitic vol] 8.5 fL Normal 7-12 [facility] Comment on above: Performed By: #### C RADHA, CMP, 54493-4 #### [facility] ([id number]) [address] [place] [address] Platelets (Bld) [#/Vol] 219 10*3/uL Normal 150-450 [facility] Comment on above: Performed By: #### C BCA, CMP, 41289-1 #### [facility] ([id number]) [address], [facility] [address] [place] [address] RBC COUNT 5.18 X10E12/L Normal 4.10-5.70 [facility] Comment on above: Performed By: #### C BCA, CMP, 24554-6 #### [facility] ([id number]) [address] [facility] [address] [place] [address] WBC (Bld) [#/Vol] 8.8 10*3/uL Normal 4.0-11.0 [facility] Comment on above: Performed By: #### C BCA, CMP, 48284-4 #### [facility] ([id number]) [address], [address] [place] [address] COMPREHENSIVE METABOLIC PANE Tejas 09-24-2023 Albumin [Mass/Vol] 3.6 g/dL Normal 3.2-5.3 [facility] Comment on above: Performed By: #### C BCA, CMP, 57682-6 #### [facility] ([id number]) [address], [address] [place] [address] ALP [Catalytic activity/Vol] 48 U/L Normal 39-130 [facility] Comment on above: Performed By: #### C BCA, CMP, 21480-3 #### [facility] ([id number]) [address], [address] [place] [address] ALT [Catalytic activity/Vol] 47 U/L High 0-40 [facility] Comment on above: Performed By: #### C RADHA CMP, 59035-9 #### [facility] ([id number]) [address], [address] [place] [address] Anion gap [Moles/Vol] 8 mmol/L Normal 5-15 [facility] Comment on above: Performed By: #### C RADHA CMP, 16862-8 #### [facility] ([id number]) [address], [address] [place] [address] AST [Catalytic activity/Vol] 27 U/L Normal 0-41 [facility] Comment on above: Performed By: #### C RADHA CMP, 39697-5 #### [facility] ([id number]) [address], [address] [place] [address] Bilirubin [Mass/Vol] 1.0 mg/dL Normal 0.3-1.2 [facility] Comment on above: Performed By: #### C RADHA CMP, 16637-9 #### [facility] ([id number]) [address], [address] [place] [address] Calcium [Mass/Vol] 8.7 mg/dL Normal 8.5-10.5 [facility] Comment on above: Performed By: #### C RADHA CMP, 49028-2 #### [facility] ([id number]) [address], [address] [place] [address] Chloride [Moles/Vol] 99 mmol/L Normal 98-109 [facility] Comment on above: Performed By: #### C BCA, CMP, 48794-5 #### [facility] ([id number]) [address], [address] [place] [address] CO2 [Moles/Vol] 27 mmol/L Normal 22-32 [facility] Comment on above: Performed By: #### C WINSOME GARCIA, 30550-7 #### [facility] ([id number]) [address] [address] [place] [address] Creatinine [Mass/Vol] 0.84 mg/dL Normal 0.60-1.30 [facility] Comment on above: Result Comment: METH OD TRACEABLE TO IDMS STANDARD Performed By: #### C WINSOME GARCIA, 29787-1 #### [facility] ([id number]) [address] [facility] [address] [place] [address] eGFR (CKD-EPI) NON-RACE DEPENDENT >90 Normal >59 [facility] Comment on above: Result Comment: Reported eGFR is based on the CKD-EPI 2020 equation that does not use a race coefficient. Performed By: #### C WINSOME GARCIA, 51310-4 #### [facility] ([id number]) [address] [address] [place] [address] Glucose [Mass/Vol] 124 mg/dL High 65-99 [facility] Comment on above: Performed By: #### C WINSOME GARCIA, 38449-5 #### [facility] ([id number]) [address] [address] [place] [address] Potassium [Moles/Vol] 4.3 mmol/L Normal 3.5-5.0 [facility] Comment on above: Performed By: #### C WINSOME GARCIA, 97831-1 #### [facility] ([id number]) [address] [address] [place] [address] Protein [Mass/Vol] 6.8 g/dL Normal 6.0-8.0 [facility] Comment on above: Performed By: #### C WINSOME GARCIA, 66177-8 #### [facility] ([id number]) [address] [address] [place] [address] Sodium [Moles/Vol] 134 mmol/L Normal 134-146 [facility] Comment on above: Performed By: #### C RADHA CMP, 43482-8 #### [facility] ([id number]) [address], [address] [place] [address] Urea nitrogen [Mass/Vol] 21 mg/dL Normal 5-27 [facility] Comment on above: Performed By: #### Susy GARCIA, CMP, 82649-1 #### [facility] ([id number]) [address], [address] [place] [address] Glucose Glucometer (BldC) [M ass/Vol]on 09-24-2023 Glucose [Mass/Vol] 116 mg/dL High 65-99 [facility] Glucose [Mass/Vol] 137 mg/dL High 65-99 [facility] Glucose [Mass/Vol] 81 mg/dL Normal 65-99 [facility] Glucose [Mass/Vol] 144 mg/dL High 65-99 [facility] MAGNESIUMon 09-24-2023 Magnesium [Mass/Vol] 2.1 mg/dL Normal 1.8-2.6 [facility] Comment on above: Performed By: #### Susy GARCIA CMP, 22544-9 #### [facility] ([id number]) [address] [place] [address] Magnesium [Mass/Vol] 1.9 mg/dL Normal 1.8-2.6 [facility] Comment on above: Performed By: #### Susy GARCIA CMP, 89119-0 #### [facility] ([id number]) [address], [address] [place] [address] CBC AND AUTO DIFFon 09-23-19 24 ABSOLUTE BASOPHIL 0.0 X10E9/L Normal 0.0-0.2 [facility] Comment on above: Performed By: #### Susy GARCIA, CMP, 60266-1 ####[facility] ([id number])[address], [address] [address] ABSOLUTE NEUTROPHIL 6.0 X10E9/L Normal 1.5-6.6 [facility] Comment on above: Performed By: #### C WINSOME GARCIA, ####[facility] ([id number])[address], [address] [address] Basophils/100 WBC (Bld) 0.5 % Normal [facility] Comment on above: Performed By: #### Susy GARCIA CMP, ####[facility] ([id number])[address] [address], [place] [address] Eosinophils (Bld) [#/Vol] 0.3 10*3/uL Normal 0.0-0.4 [facility] Comment on above: Performed By: #### Susy GARCIA CMP, ####[facility] ([id number])[address] [address], [place] [address] Eosinophils/100 WBC (Bld) 2.9 % Normal [facility] Comment on above: Performed By: #### Susy GARCIA [facility], ####[facility] ([id number])[address] [address] [address] Erythrocyte distribution width (RBC) [Ratio] 13.8 % Normal 11.5-15.0 [facility] Comment on above: Performed By: #### Susy GARCIA CMP, ####[facility] ([id number])[address] [address] [address] Hematocrit (Bld) [Volume fraction] 43.9 % Normal 39-49 [facility] Comment on above: Performed By: #### Susy GARCIA CMP, ####[facility] ([id number])[address] [address] [address] Hemoglobin (Bld) [Mass/Vol] 14.8 g/dL Normal 13.0-17.0 [facility] Comment on above: Performed By: #### C RADHA, CMP, ####[facility] ([id number])[address] [address] [place] [address] Lymphocytes (Bld) [#/Vol] 1.7 10*3/uL Normal 1.0-3.5 [facility] Comment on above: Performed By: #### Susy GARCIA, CMP, ####[facility] ([id number])[address] [place] [address] Lymphocytes/100 WBC (Bld) 19.4 % Normal [facility] Comment on above: Performed By: #### Susy GARCIA CMP, ####[facility] ([id number])[address], [address] [place] [address] MCH (RBC) [Entitic mass] 28.7 pg Normal 27-34 [facility] Comment on above: Performed By: #### Susy GARCIA, CMP, ####[facility] ([id number])[address] [address] MCHC (RBC) [Mass/Vol] 33.8 g/dL Normal 32-36 [facility] Comment on above: Performed By: #### Susy GARCIA CMP, ####[facility] ([id number])[address] [address] [place] [address] MCV (RBC) [Entitic vol] 85 fL Normal 80-100 [facility] Comment on above: Performed By: #### Susy GARCIA, CMP, ####[facility] ([id number])[address] [address] [place] [address] Monocytes (Bld) [#/Vol] 0.8 10*3/uL Normal 0-0.9 [facility] Comment on above: Performed By: #### Susy GARCIA, CMP, ####[facility] ([id number])[address], [place] [address] Monocytes/100 WBC (Bld) 9.1 % Normal [facility] Comment on above: Performed By: #### C RADHA, CMP, ####[facility] ([id number])[address], [place] [address] Neutrophils/100 WBC (Bld) 68.1 % Normal [facility] Comment on above: Performed By: #### C RADHA, CMP, ####[facility] ([id number])[address], [address], [place] [address] Platelet mean volume (Bld) [Entitic vol] 8.7 fL Normal 7-12 [facility] Comment on above: Performed By: #### Susy GARCIA, CMP, ####[facility] ([id number])[address] [address], [place] [address] Platelets (Bld) [#/Vol] 214 10*3/uL Normal 150-450 [facility] Comment on above: Performed By: #### Susy GARCIA, CMP, ####[facility] ([id number])[address], [place] [address] RBC COUNT 5.17 X10E12/L Normal 4.10-5.70 [facility] Comment on above: Performed By: #### Susy BCA, CMP, ####[facility] ([id number])[address], [place] [address] WBC (Bld) [#/Vol] 8.8 10*3/uL Normal 4.0-11.0 [facility] Comment on above: Performed By: #### Susy BCA, CMP, ####[facility] ([id number])[address], [place] [address] COMPREHENSIVE METABOLIC PANE [place] 09-23-2023 Albumin [Mass/Vol] 3.7 g/dL Normal 3.2-5.3 [facility] Comment on above: Performed By: #### C RADHA CMP, 27013-4 #### [facility] ([id number]) [address], [address] [place] [address] ALP [Catalytic activity/Vol] 45 U/L Normal 39-130 [facility] Comment on above: Performed By: #### C RADHA, CMP, 19512-0 #### [facility] ([id number]) [address], [address] [place] [address] ALT [Catalytic activity/Vol] 54 U/L High 0-40 [facility] Comment on above: Performed By: #### Susy GARCIA CMP, 02314-4 #### [facility] ([id number]) [address], [address] [place] [address] Anion gap [Moles/Vol] 10 mmol/L Normal 5-15 [facility] Comment on above: Performed By: #### Susy GARCIA CMP, 90071-1 #### [facility] ([id number]) [address], [address] [place] [address] AST [Catalytic activity/Vol] 34 U/L Normal 0-41 [facility] Comment on above: Performed By: #### Susy GARCIA CMP, 96937-0 #### [facility] ([id number]) [address], [address] [place] [address] Bilirubin [Mass/Vol] 1.0 mg/dL Normal 0.3-1.2 [facility] Comment on above: Performed By: #### C BCA, CMP, 05456-0 #### [facility] ([id number]) [address], [address] [place] [address] Calcium [Mass/Vol] 8.7 mg/dL Normal 8.5-10.5 [facility] Comment on above: Performed By: #### C BCA, CMP, 84749-4 #### [facility] ([id number]) [address], [address] [place] [address] Chloride [Moles/Vol] 101 mmol/L Normal 98-109 [facility] Comment on above: Performed By: #### C RADHA CMP, 35867-0 #### [facility] ([id number]) [address], [address] [place] [address] CO2 [Moles/Vol] 27 mmol/L Normal 22-32 [facility] Comment on above: Performed By: #### C WINSOME GARCIA, 83693-8 #### [facility] ([id number]) [address], [address] [place] [address] Creatinine [Mass/Vol] 0.86 mg/dL Normal 0.60-1.30 [facility] Comment on above: Result Comment: METH OD TRACEABLE TO IDMS STANDARD Performed By: #### C WNISOME GARCIA, 15170-9 #### [facility] ([id number]) [address], [address] [place] [address] GFR/1.73 sq M.predicted among non-blacks MDRD (S/P/Bld) [Vol rate/Area] 90 mL/min/{1.73_m2} Normal >59 [facility] Comment on above: Result Comment: Reported eGFR is based on the CKD-EPI 2020 equation that does not use a race coefficient. Performed By: #### C BCA, CMP, 28287-8 #### [facility] ([id number]) [address], [address] [place] [address] Glucose [Mass/Vol] 122 mg/dL High 65-99 [facility] Comment on above: Performed By: #### C BCA, CMP, 65211-6 #### [facility] ([id number]) [address], [address] [place] [address] Potassium [Moles/Vol] 4.1 mmol/L Normal 3.5-5.0 [facility] Comment on above: Performed By: #### Susy GARCIA CMP, 78609-7 #### [facility] ([id number]) [address], [address] [place] [address] Protein [Mass/Vol] 6.8 g/dL Normal 6.0-8.0 [facility] Comment on above: Performed By: #### C RADHA, CMP, 24135-6 #### [facility] ([id number]) [address], [address] [place] [address] Sodium [Moles/Vol] 138 mmol/L Normal 134-146 [facility] Comment on above: Performed By: #### Susy GARCIA, CMP, 72810-7 #### [facility] ([id number]) [address], [address] [place] [address] Urea nitrogen [Mass/Vol] 23 mg/dL Normal 5-27 [facility] Comment on above: Performed By: #### Susy GARCIA, CMP, 53258-6 #### [facility] ([id number]) [address] [place] [address] MAGNESIUMon 09-23-2023 Magnesium [Mass/Vol] 1.8 mg/dL Normal 1.8-2.6 [facility] Comment on above: Performed By: #### C BCA, CMP, 11734-4 #### [facility] ([id number]) [address] [place] [address] CBC AND AUTO DIFFon 09-22-19 24 ABSOLUTE BASOPHIL 0.1 X10E9/L Normal 0.0-0.2 [facility] Comment on above: Performed By: #### C BCA, CMP, 66973-5 ####[facility] ([id number])[address], [place] [address] ABSOLUTE NEUTROPHIL 7.2 X10E9/L High 1.5-6.6 [facility] Comment on above: Performed By: #### Susy GARCIA CMP, ####[facility] ([id number])[address], [place] [address] Basophils/100 WBC (Bld) 0.5 % Normal [facility] Comment on above: Performed By: #### Susy GARCIA CMP, ####[facility] ([id number])[address] [address] Eosinophils (Bld) [#/Vol] 0.2 10*3/uL Normal 0.0-0.4 [facility] Comment on above: Performed By: #### Susy GARCIA CMP, ####[facility] ([id number])[address] [address] Eosinophils/100 WBC (Bld) 1.8 % Normal [facility] Comment on above: Performed By: #### Susy GARCIA CMP, ####[facility] ([id number])[address] [address] [address] Erythrocyte distribution width (RBC) [Ratio] 13.9 % Normal 11.5-15.0 [facility] Comment on above: Performed By: #### Susy GARCIA CMP, ####[facility] ([id number])[address] [address] [address] Hematocrit (Bld) [Volume fraction] 43.8 % Normal 39-49 [facility] Comment on above: Performed By: #### Susy GARCIA CMP, ####[facility] ([id number])[address] [address] Hemoglobin (Bld) [Mass/Vol] 15.0 g/dL Normal 13.0-17.0 [facility] Comment on above: Performed By: #### Susy GARCIA CMP, ####[facility] ([id number])[address] [address] Lymphocytes (Bld) [#/Vol] 1.6 10*3/uL Normal 1.0-3.5 [facility] Comment on above: Performed By: #### Susy GARCIA CMP, ####[facility] ([id number])[address] [address] Lymphocytes/100 WBC (Bld) 15.7 % Normal [facility] Comment on above: Performed By: #### Susy GARCIA CMP, ####[facility] ([id number])[address] [address] MCH (RBC) [Entitic mass] 29.1 pg Normal 27-34 [facility] Comment on above: Performed By: #### Susy GARCIA CMP, ####[facility] ([id number])[address], [place] [address] MCHC (RBC) [Mass/Vol] 34.1 g/dL Normal 32-36 [facility] Comment on above: Performed By: #### Susy GARCIA CMP, ####[facility] ([id number])[address] [address] MCV (RBC) [Entitic vol] 85 fL Normal 80-100 [facility] Comment on above: Performed By: #### Susy GARCIA CMP, ####[facility] ([id number])[address] [address] Monocytes (Bld) [#/Vol] 1.0 10*3/uL High 0-0.9 [facility] Comment on above: Performed By: #### Susy GARCIA, CMP, ####[facility] ([id number])[address] [address] Monocytes/100 WBC (Bld) 10.1 % Normal [facility] Comment on above: Performed By: #### C BCA, CMP, ####[facility] ([id number])[address] [address] Neutrophils/100 WBC (Bld) 71.9 % Normal [facility] Comment on above: Performed By: #### C BCA, CMP, ####[facility] ([id number])[address] [address] Platelet mean volume (Bld) [Entitic vol] 8.5 fL Normal 7-12 [facility] Comment on above: Performed By: #### Susy BCA, CMP, ####[facility] ([id number])[address] [address] Platelets (Bld) [#/Vol] 239 10*3/uL Normal 150-450 [facility] Comment on above: Performed By: #### C BCA, CMP, ####[facility] ([id number])[address] [address] RBC COUNT 5.15 X10E12/L Normal 4.10-5.70 [facility] Comment on above: Performed By: #### C BCA, CMP, ####[facility] ([id number])[address] [address] WBC (Bld) [#/Vol] 10.0 10*3/uL Normal 4.0-11.0 [facility] Comment on above: Performed By: #### C BCA, CMP, ####[facility] ([id number])[address], [place] [address] COMPREHENSIVE METABOLIC PANE Tejas 09-22-2023 Albumin [Mass/Vol] 3.8 g/dL Normal 3.2-5.3 [facility] Comment on above: Performed By: #### C BCA, CMP, 04731-8 ####[facility] ([id number])[address], [place] [address] ALP [Catalytic activity/Vol] 49 U/L Normal 39-130 [facility] Comment on above: Performed By: #### C BCA, CMP, ####[facility] ([id number])[address], [place] [address] ALT [Catalytic activity/Vol] 60 U/L High 0-40 [facility] Comment on above: Performed By: #### C BCA, CMP, ####[facility] ([id number])[address], [place] [address] Anion gap [Moles/Vol] 8 mmol/L Normal 5-15 [facility] Comment on above: Performed By: #### C BCA, CMP, ####[facility] ([id number])[address], [place] [address] AST [Catalytic activity/Vol] 51 U/L High 0-41 [facility] Comment on above: Performed By: #### C BCA, CMP, ####[facility] ([id number])[address], [place] [address] Bilirubin [Mass/Vol] 0.7 mg/dL Normal 0.3-1.2 [facility] Comment on above: Performed By: #### C BCA, CMP, ####[facility] ([id number])[address], [place] [address] Calcium [Mass/Vol] 8.8 mg/dL Normal 8.5-10.5 [facility] Comment on above: Performed By: #### C WINSOME GARCIA, 86863-4 ####[facility] ([id number])[address], [place] [address] Chloride [Moles/Vol] 99 mmol/L Normal 98-109 [facility] Comment on above: Performed By: #### C WINSOME GARCIA, ####[facility] ([id number])[address], [place] [address] CO2 [Moles/Vol] 31 mmol/L Normal 22-32 [facility] Comment on above: Performed By: #### C WINSOME GARCIA, ####[facility] ([id number])[address], [place] [address] Creatinine [Mass/Vol] 1.02 mg/dL Normal 0.60-1.30 [facility] Comment on above: Result Comment: METH OD TRACEABLE TO IDMS STANDARD Performed By: #### C WINSOME GARCIA, 39580-4 ####[facility] ([id number])[address], [place] [address] GFR/1.73 sq M.predicted among non-blacks MDRD (S/P/Bld) [Vol rate/Area] 76 mL/min/{1.73_m2} Normal >59 [facility] Comment on above: Result Comment: Reported eGFR is based on the CKD-EPI 2020 equation that does not use a race coefficient. Performed By: #### C WINSOME GARCIA, ####[facility] ([id number])[address], [place] [address] Glucose [Mass/Vol] 127 mg/dL High 65-99 [facility] Comment on above: Performed By: #### C WINSOME GARCIA, ####[facility] ([id number])[address], [address], [place] [address] Potassium [Moles/Vol] 4.3 mmol/L Normal 3.5-5.0 [facility] Comment on above: Performed By: #### C RADHA CMP, 37964-2 ####[facility] ([id number])[address], [address], [place] [address] Protein [Mass/Vol] 7.0 g/dL Normal 6.0-8.0 [facility] Comment on above: Performed By: #### Susy GARCIA CMP, ####[facility] ([id number])[address], [address], [place] [address] Sodium [Moles/Vol] 138 mmol/L Normal 134-146 [facility] Comment on above: Performed By: #### Susy GARCIA CMP, ####[facility] ([id number])[address] [address] Urea nitrogen [Mass/Vol] 30 mg/dL High 5-27 [facility] Comment on above: Performed By: #### Susy GARCIA CMP, ####[facility] ([id number])[address], [address] [address] Glucose Glucometer (BldC) [M ass/Vol]on 09-22-2023 Glucose [Mass/Vol] 119 mg/dL High 65-99 [facility] Glucose [Mass/Vol] 140 mg/dL High 65-99 [facility] MAGNESIUMon 09-22-2023 Magnesium [Mass/Vol] 2.0 mg/dL Normal 1.8-2.6 [facility] Comment on above: Performed By: #### Susy BCA, CMP, ####[facility] ([id number])[address], [address], [place] [address] CBC AND AUTO DIFFon 09-21-19 24 ABSOLUTE BASOPHIL 0.0 X10E9/L Normal 0.0-0.2 [facility] Comment on above: Performed By: #### Susy GARCIA CMP, #### [facility] ([id number]) [address], [address] [place] [address] ABSOLUTE NEUTROPHIL 8.1 X10E9/L High 1.5-6.6 [facility] Comment on above: Performed By: #### Susy GARCIA CMP, #### [facility] ([id number]) [address], [address] [place] [address] Basophils/100 WBC (Bld) 0.4 % Normal [facility] Comment on above: Performed By: #### Susy GARCIA CMP, #### [facility] ([id number]) [address], [address] [place] [address] Eosinophils (Bld) [#/Vol] 0.0 10*3/uL Normal 0.0-0.4 [facility] Comment on above: Performed By: #### Susy GARCIA CMP, #### [facility] ([id number]) [address], [address] [place] [address] Eosinophils/100 WBC (Bld) 0.5 % Normal [facility] Comment on above: Performed By: #### Susy GARCIA CMP, #### [facility] ([id number]) [address], [address] [place] [address] Erythrocyte distribution width (RBC) [Ratio] 13.9 % Normal 11.5-15.0 [facility] Comment on above: Performed By: #### Susy GARCIA CMP, #### [facility] ([id number]) [address], [address] [place] [address] Hematocrit (Bld) [Volume fraction] 43.5 % Normal 39-49 [facility] Comment on above: Performed By: #### C BCA, CMP, 19954-9 #### [facility] ([id number]) [address], [address] [place] [address] Hemoglobin (Bld) [Mass/Vol] 14.7 g/dL Normal 13.0-17.0 [facility] Comment on above: Performed By: #### C RADHA, CMP, #### [facility] ([id number]) [address], [address] [place] [address] Lymphocytes (Bld) [#/Vol] 1.8 10*3/uL Normal 1.0-3.5 [facility] Comment on above: Performed By: #### C RADHA CMP, #### [facility] ([id number]) [address], [address] [place] [address] Lymphocytes/100 WBC (Bld) 16.6 % Normal [facility] Comment on above: Performed By: #### Susy GARCIA, CMP, 87610-6 #### [facility] ([id number]) [address], [address] [place] [address] MCH (RBC) [Entitic mass] 28.6 pg Normal 27-34 [facility] Comment on above: Performed By: #### Susy GARCIA CMP, #### [facility] ([id number]) [address], [address] [place] [address] MCHC (RBC) [Mass/Vol] 33.8 g/dL Normal 32-36 [facility] Comment on above: Performed By: #### C RADHA, CMP, #### [facility] ([id number]) [address], [address] [place] [address] MCV (RBC) [Entitic vol] 85 fL Normal 80-100 [facility] Comment on above: Performed By: #### C BCA, CMP, #### [facility] ([id number]) [address], [address] [place] [address] Monocytes (Bld) [#/Vol] 0.9 10*3/uL Normal 0-0.9 [facility] Comment on above: Performed By: #### C BCA, CMP, #### [facility] ([id number]) [address], [address] [place] [address] Monocytes/100 WBC (Bld) 7.9 % Normal [facility] Comment on above: Performed By: #### C BCA, CMP, #### [facility] ([id number]) [address], [address] [place] [address] Neutrophils/100 WBC (Bld) 74.6 % Normal [facility] Comment on above: Performed By: #### Susy BCA, CMP, #### [facility] ([id number]) [address], [address] [place] [address] Platelet mean volume (Bld) [Entitic vol] 8.3 fL Normal 7-12 [facility] Comment on above: Performed By: #### C BCA, CMP, #### [facility] ([id number]) [address], [address] [place] [address] Platelets (Bld) [#/Vol] 235 10*3/uL Normal 150-450 [facility] Comment on above: Performed By: #### C BCA, CMP, #### [facility] ([id number]) [address], [address] [place] [address] RBC COUNT 5.15 X10E12/L Normal 4.10-5.70 [facility] Comment on above: Performed By: #### C BCA, CMP, #### [facility] ([id number]) [address], [address] [place] [address] WBC (Bld) [#/Vol] 10.8 10*3/uL Normal 4.0-11.0 [facility] Comment on above: Performed By: #### C BCA, CMP, #### [facility] ([id number]) [address], [address] [place] [address] COMPREHENSIVE METABOLIC PANE [place] 09-21-2023 Albumin [Mass/Vol] 4.0 g/dL Normal 3.2-5.3 [facility] Comment on above: Performed By: #### C RADHA, CMP, #### [facility] ([id number]) [address], [address] [place] [address] ALP [Catalytic activity/Vol] 48 U/L Normal 39-130 [facility] Comment on above: Performed By: #### C BCA, CMP, #### [facility] ([id number]) [address], [address] [place] [address] ALT [Catalytic activity/Vol] 36 U/L Normal 0-40 [facility] Comment on above: Performed By: #### C BCA, CMP, #### [facility] ([id number]) [address], [address] [place] [address] Anion gap [Moles/Vol] 11 mmol/L Normal 5-15 [facility] Comment on above: Performed By: #### C BCA, CMP, #### [facility] ([id number]) [address], [address] [place] [address] AST [Catalytic activity/Vol] 37 U/L Normal 0-41 [facility] Comment on above: Performed By: #### C BCA, CMP, #### [facility] ([id number]) [address], [address] [place] [address] Bilirubin [Mass/Vol] 1.0 mg/dL Normal 0.3-1.2 [facility] Comment on above: Performed By: #### C WINSOME GACRIA, #### [facility] ([id number]) [address], [address] [place] [address] Calcium [Mass/Vol] 8.8 mg/dL Normal 8.5-10.5 [facility] Comment on above: Performed By: #### C RADHA CMP, #### [facility] ([id number]) [address], [address] [place] [address] Chloride [Moles/Vol] 99 mmol/L Normal 98-109 [facility] Comment on above: Performed By: #### C WINSOME GARCIA, #### [facility] ([id number]) [address], [address] [place] [address] CO2 [Moles/Vol] 29 mmol/L Normal 22-32 [facility] Comment on above: Performed By: #### C WINSOME GARCIA, #### [facility] ([id number]) [address], [address] [place] [address] Creatinine [Mass/Vol] 0.99 mg/dL Normal 0.60-1.30 [facility] Comment on above: Result Comment: METH OD TRACEABLE TO IDMS STANDARD Performed By: #### C RADHA CMP, #### [facility] ([id number]) [address], [address] [place] [address] GFR/1.73 sq M.predicted among non-blacks MDRD (S/P/Bld) [Vol rate/Area] 79 mL/min/{1.73_m2} Normal >59 [facility] Comment on above: Result Comment: Reported eGFR is based on the CKD-EPI 2020 equation that does not use a race coefficient. Performed By: #### C BCA CMP, #### [facility] ([id number]) [address], [address] [place] [address] Glucose [Mass/Vol] 127 mg/dL High 65-99 [facility] Comment on above: Performed By: #### C BCA, CMP, #### [facility] ([id number]) [address], [address] [place] [address] Potassium [Moles/Vol] 3.8 mmol/L Normal 3.5-5.0 [facility] Comment on above: Performed By: #### C BCA, CMP, #### [facility] ([id number]) [address], [address] [place] [address] Protein [Mass/Vol] 7.2 g/dL Normal 6.0-8.0 [facility] Comment on above: Performed By: #### C BCA, CMP, #### [facility] ([id number]) [address], [address] [place] [address] Sodium [Moles/Vol] 139 mmol/L Normal 134-146 [facility] Comment on above: Performed By: #### C BCA, CMP, #### [facility] ([id number]) [address], [address] [place] [address] Urea nitrogen [Mass/Vol] 34 mg/dL High 5-27 [facility] Comment on above: Performed By: #### C BCA, CMP, #### [facility] ([id number]) [address], [address] [place] [address] HGB A1C (GLYCO-HGB)on 2023 Glucose [Mass/Vol] 137 mg/dL Normal [facility] Comment on above: Performed By: #### C BCA, CMP, ####[facility] ([id number])[address], [address] [address] HbA1c (Bld) [Mass fraction] 6.4 % High 4.4-5.6 [facility] Comment on above: Result Comment: NOTE ADA Guidelines Result HgbA1c Normal : less than 5.7 % Prediabetes : 5.7 % to 6.4 % Diabetes : > 6.4 % Use with caution in patients with abnormal hemoglobin variants as the half-life of red blood cells and in vivo glycation rates are affected. Performed By: #### C RADHA [facility], 56894-4 ####[facility] ([id number])[address] [address] [place] [address] MAGNESIUMon 09-21-2023 Magnesium [Mass/Vol] 2.3 mg/dL Normal 1.8-2.6 [facility] Comment on above: Performed By: #### 1 9123-9 ####[facility] ([id number])[address] [address] [place] [address] Magnesium [Mass/Vol] 1.8 mg/dL Normal 1.8-2.6 [facility] Comment on above: Performed By: #### C RADHA, [facility], 10870-6 ####[facility] ([id number])[address] [address] [place] [address] URINALYSISon 09-21-2023 Bilirubin Ql (U) Negative Normal NEG [facility] Comment on above: Performed By: #### U A ####[facility] ([id number])[address] [address] [place] [address] BLOOD/HGB Negative Normal NEG [facility] Comment on above: Performed By: #### U A ####[facility] ([id number])[address] [address] [address] Color (U) YELLOW Normal YELLOW [facility] Comment on above: Performed By: #### U A ####[facility] ([id number])[address], [address] [place] [address] Glucose Ql (U) Negative Normal NEG [facility] Comment on above: Performed By: #### U A ####[facility] ([id number])[address], [address] [place] [address] Ketones Ql (U) Negative Normal NEG [facility] Comment on above: Performed By: #### U A ####[facility] ([id number])[address], [address] [place] [address] Leukocyte esterase Test strip Ql (U) Negative Normal NEG [facility] Comment on above: Performed By: #### U A ####[facility] ([id number])[address], [address] [place] [address] MUCOUS PRESENT Abnormal NONE [facility] Comment on above: Performed By: #### U A ####[facility] ([id number])[address], [address] [place] [address] Nitrite Ql (U) Negative Normal NEG [facility] Comment on above: Performed By: #### U A ####[facility] ([id number])[address], [address] [place] [address] pH (U) 6.0 [pH] Normal 5.0-8.5 [facility] Comment on above: Performed By: #### U A ####[facility] ([id number])[address], [address] [place] [address] Protein Ql (U) Trace Abnormal NEG [facility] Comment on above: Performed By: #### U A ####[facility] ([id number])[address], [address] [place] [address] R.B.CELLS 3 /hpf Normal 0-5 [facility] Comment on above: Performed By: #### U A ####[facility] ([id number])[address] [address] Specific gravity (U) [Rel density] 1.023 Normal 1.003-1.03 5 [facility] Comment on above: Performed By: #### U A ####[facility] ([id number])[address] [address] TURBIDITY CLEAR Normal CLEAR [facility] Comment on above: Performed By: #### U A ####[facility] ([id number])[address] [address] Urinalysis dipstick W Reflex Microscopic panel (U) URINE RECEIVED WITHOUT PRESERVATIVE-DELAYS IN TRANSPORT MAY AFFECT RESULTS.INTERPRET WITH CAUTION AND CLINICAL CORRELATION IS RECOMMENDED. Normal [facility] Comment on above: Performed By: #### U A ####[facility] ([id number])[address] [address] Urobilinogen (U) [Mass/Vol] mg/dL Normal <1.1 [facility] Comment on above: Performed By: #### U A ####[facility] ([id number])[address] [address] W.B.CELLS 2 /hpf Normal 0-5 [facility] Comment on above: Performed By: #### U A ####[facility] ([id number])[address] [address] CBC AND AUTO DIFFon 09-20-19 24 ABSOLUTE BASOPHIL 0.1 X10E9/L Normal 0.0-0.2 [facility] Comment on above: Performed By: #### C BCA, CMP, 23234-7 #### [facility] ([id number]) [address] [place] [address] ABSOLUTE NEUTROPHIL 11.3 X10E9/L High 1.5-6.6 [facility] Comment on above: Performed By: #### Susy GARCIA CMP, 74683-1 #### [facility] ([id number]) [address], [address] [place] [address] Basophils/100 WBC (Bld) 0.5 % Normal [facility] Comment on above: Performed By: #### Susy GARCIA CMP, 27198-3 #### [facility] ([id number]) [address], [address] [place] [address] Eosinophils (Bld) [#/Vol] 0.0 10*3/uL Normal 0.0-0.4 [facility] Comment on above: Performed By: #### Susy GARCIA CMP, 88366-0 #### [facility] ([id number]) [address], [address] [place] [address] Eosinophils/100 WBC (Bld) 0.0 % Normal [facility] Comment on above: Performed By: #### Susy GARCIA CMP, 29275-8 #### [facility] ([id number]) [address], [address] [place] [address] Erythrocyte distribution width (RBC) [Ratio] 13.8 % Normal 11.5-15.0 [facility] Comment on above: Performed By: #### Susy GARCIA CMP, 24412-2 #### [facility] ([id number]) [address], [address] [place] [address] Hematocrit (Bld) [Volume fraction] 45.3 % Normal 39-49 [facility] Comment on above: Performed By: #### Susy GARCIA CMP, 69299-6 #### [facility] ([id number]) [address], [address] [place] [address] Hemoglobin (Bld) [Mass/Vol] 15.3 g/dL Normal 13.0-17.0 [facility] Comment on above: Performed By: #### Susy GARCIA CMP, 74603-0 #### [facility] ([id number]) [address], [address] [place] [address] Lymphocytes (Bld) [#/Vol] 0.5 10*3/uL Low 1.0-3.5 [facility] Comment on above: Performed By: #### Susy GARCIA CMP, 84929-6 #### [facility] ([id number]) [address], [address] [place] [address] Lymphocytes/100 WBC (Bld) 4.2 % Normal [facility] Comment on above: Performed By: #### Susy GARCIA CMP, 73463-3 #### [facility] ([id number]) [address], [address] [place] [address] MCH (RBC) [Entitic mass] 28.5 pg Normal 27-34 [facility] Comment on above: Performed By: #### Susy GARCIA CMP, 16923-3 #### [facility] ([id number]) [address] [place] [address] MCHC (RBC) [Mass/Vol] 33.7 g/dL Normal 32-36 [facility] Comment on above: Performed By: #### Susy GARCIA CMP, 55163-8 #### [facility] ([id number]) [address] [place] [address] MCV (RBC) [Entitic vol] 85 fL Normal 80-100 [facility] Comment on above: Performed By: #### Susy GARCIA CMP, 99650-4 #### [facility] ([id number]) [address], [address] [place] [address] Monocytes (Bld) [#/Vol] 0.4 10*3/uL Normal 0-0.9 [facility] Comment on above: Performed By: #### C RADHA, CMP, 02738-8 #### [facility] ([id number]) [address], [address] [place] [address] Monocytes/100 WBC (Bld) 3.0 % Normal [facility] Comment on above: Performed By: #### C BCA, CMP, 07943-1 #### [facility] ([id number]) [address], [address] [place] [address] Neutrophils/100 WBC (Bld) 92.3 % Normal [facility] Comment on above: Performed By: #### C RADHA, CMP, 94789-5 #### [facility] ([id number]) [address] [place] [address] Platelet mean volume (Bld) [Entitic vol] 8.2 fL Normal 7-12 [facility] Comment on above: Performed By: #### Susy GARCIA, CMP, 26452-2 #### [facility] ([id number]) [address], [address] [place] [address] Platelets (Bld) [#/Vol] 262 10*3/uL Normal 150-450 [facility] Comment on above: Performed By: #### Susy GARCIA, CMP, 96585-6 #### [facility] ([id number]) [address], [address] [place] [address] RBC COUNT 5.35 X10E12/L Normal 4.10-5.70 [facility] Comment on above: Performed By: #### C BCA, CMP, 70013-4 #### [facility] ([id number]) [address], [address] [place] [address] WBC (Bld) [#/Vol] 12.2 10*3/uL High 4.0-11.0 [facility] Comment on above: Performed By: #### C BCA, CMP, 41264-8 #### [facility] ([id number]) [address], [address] [place] [address] COMPREHENSIVE METABOLIC PANE [place] 09-20-2023 Albumin [Mass/Vol] 4.1 g/dL Normal 3.2-5.3 [facility] Comment on above: Performed By: #### C BCA, CMP, 39395-3 #### [facility] ([id number]) [address], [address] [place] [address] ALP [Catalytic activity/Vol] 46 U/L Normal 39-130 [facility] Comment on above: Performed By: #### C BCA, CMP, 56059-0 #### [facility] ([id number]) [address], [address] [place] [address] ALT [Catalytic activity/Vol] 16 U/L Normal 0-40 [facility] Comment on above: Performed By: #### C BCA, CMP, 09377-2 #### [facility] ([id number]) [address], [address] [place] [address] Anion gap [Moles/Vol] 10 mmol/L Normal 5-15 [facility] Comment on above: Performed By: #### C BCA, CMP, 49886-0 #### [facility] ([id number]) [address], [address] [place] [address] AST [Catalytic activity/Vol] 21 U/L Normal 0-41 [facility] Comment on above: Performed By: #### C BCA, CMP, 49557-9 #### [facility] ([id number]) [address], [address] [place] [address] Bilirubin [Mass/Vol] 0.8 mg/dL Normal 0.3-1.2 [facility] Comment on above: Performed By: #### C BCA, CMP, 17756-2 #### [facility] ([id number]) [address], [address] [place] [address] Calcium [Mass/Vol] 9.4 mg/dL Normal 8.5-10.5 [facility] Comment on above: Performed By: #### C WINSOME GARCIA, 16656-4 #### [facility] ([id number]) [address] [place] [address] Chloride [Moles/Vol] 101 mmol/L Normal 98-109 [facility] Comment on above: Performed By: #### C WINSOME GARCIA, 39188-8 #### [facility] ([id number]) [address] [place] [address] CO2 [Moles/Vol] 28 mmol/L Normal 22-32 [facility] Comment on above: Performed By: #### C WINSOME GARCIA, 22010-1 #### [facility] ([id number]) [address] [place] [address] Creatinine [Mass/Vol] 1.03 mg/dL Normal 0.60-1.30 [facility] Comment on above: Result Comment: METH OD TRACEABLE TO IDMS STANDARD Performed By: #### C WINSOME GARCIA, 67802-1 #### [facility] ([id number]) [address] [place] [address] GFR/1.73 sq M.predicted among non-blacks MDRD (S/P/Bld) [Vol rate/Area] 75 mL/min/{1.73_m2} Normal >59 [facility] Comment on above: Result Comment: Reported eGFR is based on the CKD-EPI 2020 equation that does not use a race coefficient. Performed By: #### C WINSOME GARCIA, 12871-4 #### [facility] ([id number]) [address] [place] [address] Glucose [Mass/Vol] 156 mg/dL High 65-99 [facility] Comment on above: Performed By: #### C WINSOME GARCIA, 30310-0 #### [facility] ([id number]) [address], [address] [place] [address] Potassium [Moles/Vol] 4.5 mmol/L Normal 3.5-5.0 [facility] Comment on above: Performed By: #### Susy GARCIA CMP, 51578-2 #### [facility] ([id number]) [address], [address] [place] [address] Protein [Mass/Vol] 7.4 g/dL Normal 6.0-8.0 [facility] Comment on above: Performed By: #### Susy GARCIA CMP, 29242-3 #### [facility] ([id number]) [address], [address] [place] [address] Sodium [Moles/Vol] 139 mmol/L Normal 134-146 [facility] Comment on above: Performed By: #### Susy GARCIA CMP, 43035-9 #### [facility] ([id number]) [address], [address] [place] [address] Urea nitrogen [Mass/Vol] 28 mg/dL High 5-27 [facility] Comment on above: Performed By: #### Susy GARCIA CMP, 65456-1 #### [facility] ([id number]) [address], [address] [place] [address] Glucose Glucometer (BldC) [M ass/Vol]on 09-20-2023 Glucose [Mass/Vol] 150 mg/dL High 65-99 [facility] Glucose [Mass/Vol] 208 mg/dL High 65-99 [facility] Lipid 1996 panelon Cholesterol [Mass/Vol] 183 mg/dL Normal 150-200 [facility] Comment on above: Performed By: #### C RADHA, CMP, 27565-4 #### [facility] ([id number]) [address], [address] [place] [address] Cholesterol in HDL [Mass/Vol] 36 mg/dL Low >39 [facility] Comment on above: Result Comment: HDL <40 mg/dL - High Risk HDL > or = 40mg/dL- Desirable HDL >60 mg/dL - Negative Risk Performed By: #### C BCA, CMP, 10358-6 #### [facility] ([id number]) [address], [address] [place] [address] Cholesterol in LDL [Mass/Vol] 123 mg/dL Normal <130 [facility] Comment on above: Result Comment: LDL <100 mg/dL - Desirable LDL >160 mg/dL - High Risk Performed By: #### C BCA, CMP, 03021-1 #### [facility] ([id number]) [address], [address] [place] [address] Cholesterol in VLDL [Mass/Vol] 24 mg/dL Normal 0-30 [facility] Comment on above: Performed By: #### C BCA, CMP, 78123-0 #### [facility] ([id number]) [address], [address] [place] [address] CHOLESTEROL:HDL 5.1 High 1.0-5.0 [facility] Comment on above: Performed By: #### C BCA, CMP, 58619-9 #### [facility] ([id number]) [address], [address] [place] [address] Triglyceride [Mass/Vol] 122 mg/dL Normal 27-150 [facility] Comment on above: Performed By: #### C BCA, CMP, 97921-8 #### [facility] ([id number]) [address], [address] [place] [address] MR BRAIN W WO CONTon 024 MR [...] Pryor MD on 09/20/2023 5:10 AM Normal [facility] PROTIME AND INRon 09-20-2023 INR Coag (PPP) [Relative time] 1.1 {INR} Normal 0.8-1.1 [facility] Comment on above: Performed By: #### P INR, 08525-2 #### [facility] ([id number]) [address] [place] [address] PT Coag (PPP) [Time] 12.5 s Normal 9.8-13.2 [facility] Comment on above: Performed By: #### P INR, 83059-3 #### [facility] ([id number]) [address] [place] [address] aPTT Coag (PPP) [Time]on aPTT Coag (Bld) [Time] 44 s High 26-37 [facility] Comment on above: Performed By: #### P INR, 49803-8 #### [facility] ([id number]) [address] [place] [address] Office Visit (Cardiology)on 05-04-2023 Follow-up visit Diagnoses/Problems Assessed Atherosclerosis of coronary artery of [place] heart with angina pectoris (414.01,413.9) (I25.119) Hypertension (401.9) (I10) Hyperlipidemia (272.4) (E78.5) History of PTCA 2 (V45.82) (Z98.61) History of myocardial infarction (412) (I25.2) History of CVA (cerebrovascular accident) (V12.54) (Z86.73) H/O carotid endarterectomy (V45.89) (Z98.890) Overweight with body mass index (BMI) of 25 to 25.9 in adult (278.02,V85.21) (E66.3,Z68.25) Orders Atherosclerosis of coronary artery of [place] heart with angina pectoris Renew: Aspirin 81 MG Oral Tablet Delayed Release; TAKE 1 TABLET DAILY Atherosclerosis of coronary artery of [place] heart with angina pectoris, Hyperlipidemia, Hypertension ALT - Alanine Aminotransferase, Serum; Status:Active - Retrospective Authorization; Requested for:[id number]; AST; Status:Active - Retrospective Authorization; Requested for:[id number]; Lipid Panel; Status:Active - Retrospective Authorization; Requested for:[id number]; Atherosclerosis of coronary artery of [place] heart with angina pectoris, Hypertension Renew: Metoprolol Tartrate 25 MG Oral Tablet; Take 1/2 tablet two times daily Hyperlipidemia Renew: Simvastatin 40 MG Oral Tablet; TAKE 1 TABLET AT BEDTIME Overweight with body mass index (BMI) of 25 to 25.9 in adult Healthy Weight Tips; Status:Complete - Retrospective Authorization; Done: [id number] Some eating tips that can help you [...] Recorded: 04May2023 10:26AM Heart Rate62, R Radial Cvqqgdjz601, RUE, Sitting Gazngeine15, RUE, Sitting Height5 ft 11 in Qfvimv554 lb BMI Txtvuctspl27.8 kg/m2 BSA Calculated2.04 Tobacco Useb) No PHQ-2 [...] EST (Aut (more content not included)... Normal Melty US carotid doppler BIon 05-0 US carotid doppler BI [facility] [place] [address] [place] [address] Ultrasound Report Signed Patient: Janice Shultz MR#: [id number] 7 : 1945 Acct:[id number] Age/Sex: 77 / M ADM Date: 12/12/22 Loc: [facility] Room: Type: [facility] Attending Dr: Trinh Bailey STONE SAWYER-C Ordering Provider: Trinh Bailey APRN Date of [...] Keny Ayala M.D.12/12/2022 1:25 PM Dictation Location: [place] [address] Tech: Mindy Baughjesus Transcribed By: NAINA 12/12/22 1325 Dictated By: Keny Ayala MD 12/12/22 1324 Signed By: 12/12/22 1325 [facility] Tobacco Screening.on 022 Adult depression screening assessment No -[facility] Heart-Sandu laury 250 DO Work Phone: Fall risk assessment b) One or more fall s in the last year [facility] [employer] DO Work Phone: Tobacco use status CPHS b) No [facility] [employer] laury Joelle DO Work Phone: XR SHOULDER [...] Luz MOLINA Date: 2022-02-04 19:02 Normal [facility] CBC AUTO DIFFon 09-13-2021 BASO # 0.1 103/ul Normal 0.0-0.1 [facility] Comment on above: Performed By: #### C BC #### [facility] [address] [place] [address] Dr. Kentrell Clement Basophils/100 WBC (Bld) 0.9 % Normal 0.2-2.0 [facility] Comment on above: Performed By: #### C BC #### [facility] [address] [place] [address] Dr. Kentrell Clement EO # 0.5 103/ul Normal 0.0-0.7 [facility] Comment on above: Performed By: #### C BC #### [facility] [address] [place] [address] Dr. Kentrell Clement Eosinophils/100 WBC (Bld) 6.5 % Normal 0.9-7.0 [facility] Comment on above: Performed By: #### C BC #### [facility] [address] [place] [address] Dr. Kentrell Clement Erythrocyte distribution width (RBC) [Ratio] 12.8 % Normal 11.0-15.0 [facility] Comment on above: Performed By: #### C BC #### [facility] [address] [place] [address] Dr. Kentrell Clement Hematocrit (Bld) [Volume fraction] 48.9 % Normal 42.0-54.0 [facility] Comment on above: Performed By: #### C BC #### [facility] [address] [place] [address] Dr. Kentrell Clement Hemoglobin (Bld) [Mass/Vol] 15.7 g/dL Normal 14.0-18.0 [facility] Comment on above: Performed By: #### C BC #### [facility] [address] [place] [address] Dr. Kentrell Clement IG # 0.03 10e3/ul Normal 0.00-0.03 [facility] Comment on above: Performed By: #### C BC #### [facility] [address] [place] [address] Dr. Kentrell Clement IG % 0.4 % Normal 0.0-0.5 [facility] Comment on above: Performed By: #### C BC #### [facility] [address] [place] [address] Dr. Kentrell Clement LYMPH # 1.4 103/ul Normal 1.2-3.8 [facility] Comment on above: Performed By: #### C BC #### [facility] [address] [place] [address] Dr. Kentrell Clement Lymphocytes/100 WBC (Bld) 18.2 % Critically low 20.5-60.0 [facility] Comment on above: Performed By: #### C BC #### [facility] [address] [place] [address] Dr. Kentrell Clement MANUAL DIFF REQ NO Normal [facility] Comment on above: Performed By: #### C BC #### [facility] [address] [place] [address] Dr. Kentrell Clement MCH (RBC) [Entitic mass] 27.8 pg Normal 25.9-34.0 [facility] Comment on above: Performed By: #### C BC #### [facility] [address] [place] [address] Dr. Kentrell Clement MCHC (RBC) [Mass/Vol] 32.1 g/dL Normal 29.9-35.2 [facility] Comment on above: Performed By: #### C BC #### [facility] [address] [place] [address] Dr. Kentrell Clement MCV (RBC) [Entitic vol] 86.5 fL Normal 80.0-94.0 [facility] Comment on above: Performed By: #### C BC #### [facility] [address] [place] [address] Dr. Kentrell Clement MONO # 0.6 103/ul Normal 0.3-0.8 [facility] Comment on above: Performed By: #### C BC #### [facility] [address] [place] [address] Dr. Kentrell Clement Monocytes/100 WBC (Bld) 7.9 % Normal 1.7-12.0 [facility] Comment on above: Performed By: #### C BC #### [facility] [address] [place] [address] Dr. Kentrell Clement NEUT # 5.2 103/ul Normal 1.4-6.5 [facility] Comment on above: Performed By: #### C BC #### [facility] [address] [place] [address] Dr. Kentrell Clement Neutrophils/100 WBC (Bld) 66.1 % Normal 43.0-75.0 [facility] Comment on above: Performed By: #### C BC #### [facility] [address] [place] [address] Dr. Kentrell Clement Platelet mean volume (Bld) [Entitic vol] 9.9 fL Normal 9.5-13.5 [facility] Comment on above: Performed By: #### C BC #### [facility] [address] [place] [address] Dr. Kentrell Clement PLT 249 103/ul Normal 150-450 [facility] Comment on above: Performed By: #### C BC #### [facility] [address] [place] [address] Dr. Kentrell Clement RBC 5.65 106/ul Normal 4.70-6.10 [facility] Comment on above: Performed By: #### C BC #### [facility] [address] [place] [address] Dr. Kentrell Clement WBC 7.8 103/ul Normal 4.0-11.0 [facility] Comment on above: Performed By: #### C BC #### [facility] [address] [place] [address] Dr. Kentrell Clement LIPASEon 09-13-2021 Lipase [Catalytic activity/Vol] 168.0 U/L Normal 23.0-300.0 [facility] Comment on above: Performed By: #### H STROPN, LIPA, CMP #### [facility] [address] [place] [address] Dr. Kentrell Clement PROF 14(COMP METB)on 022 Albumin [Mass/Vol] 4.3 g/dL Normal 3.5-5.0 [facility] Comment on above: Performed By: #### H STROPN, LIPA, CMP #### [facility] [address] [place] [address] Dr. Kentrell Clement Albumin/Globulin [Mass ratio] 1.0 {ratio} Normal [facility] Comment on above: Performed By: #### H STROPN, LIPA, CMP #### [facility] [address] [place] [address] Dr. Kentrell Clement ALP [Catalytic activity/Vol] 52 U/L Normal 38-126 [facility] Comment on above: Performed By: #### H STROPN, LIPA, CMP #### [facility] [address] [place] [address] Dr. Kentrell Clement ALT [Catalytic activity/Vol] 27 U/L Normal 21-72 [facility] Comment on above: Performed By: #### H STROPN, LIPA, CMP #### [facility] [address] [place] [address] [address] Kentrell Clement Anion gap [Moles/Vol] 9.7 mmol/L Normal [facility] Comment on above: Performed By: #### H STROPN, LIPA, CMP #### [facility] [address] [place] [address] Dr. Kentrell Clement AST [Catalytic activity/Vol] 17 U/L Normal 17-59 [facility] Comment on above: Performed By: #### H STROPN, LIPA, CMP #### [facility] [address] [place] [address] Dr. Kentrell Clement Bilirubin [Mass/Vol] 0.6 mg/dL Normal 0.2-1.3 [facility] Comment on above: Performed By: #### H STROPN, LIPA, CMP #### [facility] [address] [place] [address] Dr. Kentrell Clement Calcium [Mass/Vol] 9.6 mg/dL Normal 8.4-10.2 [facility] Comment on above: Performed By: #### H STROPN, LIPA, CMP #### [facility] [address] [place] [address] Dr. Kentrell Clement Chloride [Moles/Vol] 102 mmol/L Normal 98-107 [facility] Comment on above: Performed By: #### H STROPN, LIPA, CMP #### [facility] [address] [place] [address] Dr. Kentrell Clement CO2 [Moles/Vol] 28.3 mmol/L Normal 22.0-30.0 [facility] Comment on above: Performed By: #### H STROPN, LIPA, CMP #### [facility] [address] [place] [address] [address] Kentrell Clement Creatinine [Mass/Vol] 1.20 mg/dL Normal 0.66-1.25 [facility] Comment on above: Performed By: #### H STROPN, LIPA, CMP #### [facility] [address] [place] [address] [address] Kentrell Clement EGFR-AF SCOTTISH >60 Normal >=60 [facility] Comment on above: Performed By: #### H STROPN, LIPA, CMP #### [facility] [address] [place] [address] [address] Kentrell Clement EGFR-NON AF SCOTTISH 59 mL/min/1.73m2 Critically low >=60 [facility] Comment on above: Performed By: #### H STROPN, LIPA, CMP #### [facility] [address] [place] [address] [address] Kentrell Clement Globulin (S) [Mass/Vol] 4.3 g/dL Normal [facility] Comment on above: Performed By: #### H STROPN, LIPA, CMP #### [facility] [address] [place] [address] [address] Kentrell Clement Glucose [Mass/Vol] 149 mg/dL Critically high 74-106 [facility] Comment on above: Performed By: #### H STROPN, LIPA, CMP #### [facility] [address] [place] [address] Dr. Kentrell Clement Potassium [Moles/Vol] 4.0 mmol/L Normal 3.4-5.0 [facility] Comment on above: Performed By: #### H STROPN, LIPA, CMP #### [facility] [address] [place] [address] [address] Kentrell Clement Protein [Mass/Vol] 8.6 g/dL Critically high 6.1-8.2 [facility] Comment on above: Performed By: #### H STROPN, LIPA, CMP #### [facility] [address] [place] [address] Dr. Kentrell Clement Sodium [Moles/Vol] 136 mmol/L Critically low 137-145 [facility] Comment on above: Performed By: #### H STROPN, LIPA, CMP #### [facility] [address] [place] [address] Dr. Kentrell Clement Urea nitrogen [Mass/Vol] 21.0 mg/dL Critically high 9.0-20.0 [facility] Comment on above: Performed By: #### H GOLDEN PETERSON, CMP #### [facility] [address] [place] [address] [address] Kentrell Clement Urea nitrogen/Creatinine [Mass ratio] 17.5 mg/mg Normal [facility] Comment on above: Performed By: #### H GOLDEN PETERSON, CMP #### [facility] [address] [place] [address] [address] Kentrell Clement TROPONIN, HIGH SENSITIVITYon 09-13-2021 HSTROP 12.6 pg/mL Normal 4.0-42.2 [facility] Comment on above: Result Comment: CUT- OFF POINTS HAVE BEEN ESTABLISHED BASED ON THE FOURTH UNIVERSAL DEFINITIONS OF MYOCARDIAL INFARCTION. THE UPPER REFERENCE LIMIT (URL) OF TROPONIN, DEFINED THE 99TH PERCENTILE OF cTnI DISTRIBUTION IN A REFERENCE POPULATION, HAS BEEN CONFIRMED THE DECISION THRESHOLD FOR TX DIAGNOSIS. Performed By: #### H NICHOLAS #### [facility] [address] [place] [address] [address] Kentrell Clement HSTROP 12.4 pg/mL Normal 4.0-42.2 [facility] Comment on above: Result Comment: CUT- OFF POINTS HAVE BEEN ESTABLISHED BASED ON THE FOURTH UNIVERSAL DEFINITIONS OF MYOCARDIAL INFARCTION. THE UPPER REFERENCE LIMIT (URL) OF TROPONIN, DEFINED THE 99TH PERCENTILE OF cTnI DISTRIBUTION IN A REFERENCE POPULATION, HAS BEEN CONFIRMED THE DECISION THRESHOLD FOR TX DIAGNOSIS. Performed By: #### H GOLDEN PETERSON, CMP #### [facility] [address] [place] [address] [address] Kentrell Clement XR CHEST 2 Von [...] SHERIF TREADWELL Date: 2021-09-13 09:51 Normal [facility] CARDIAC STRESS/REST INJE CTIONon 05-17-2021 [facility] CARDIAC STRESS/REST INJECTION Patient Name: JANICE SHULTZ STUDY: MYOCARDIAL PERFUSION STRESS TEST WITH EXERCISE CONVERTED TO LEXISC[place] Performing facility: [facility] [place], [address] [place] [address], [address], [address] Provider: Devika Evangelista DO, FACC PCP: Dr. Reyna Paredes Supervising provider: Devika Evangelista DO, FACC INDICATION: CAD with angina Fatigue HISTORY: Gender: M; Age: 76 y/o ; Height: 180.34 cm; Weight: 85.0882259 kg. High Cholesterol; Previous TX; HTN; Fatigue; Denies smoking. Cardiac catheterization on 2014. PTCA on 2014. COMPARISON: No comparison. ACCESSION NUMBER(S): [id number]; [id number]; [id number] ORDERING CLINICIAN: [place] TECHNIQUE: ONE DAY [...] Electronically signed by: JAYLEN FERRARI MD Normal [facility] No Panel Informationon 05-17 Normal -[facility] Heart-Sandu laury 250 DO Work Phone: BASIC METABOLIC PANELon 01-11 Anion gap 8 mmol/L Normal - [facility] Comment on above: Performed By: #### L AB15 ####[facility] [id number] [place] [id number] [facility]#### [id number] ####[facility] [id number] [place] [address] [facility] [place], [place] [phone] BASIC METABOLIC PANEL Normal [facility] Comment on above: Result Comment: Slig htly hemolyzed. Hemolysis may affect this result. Specimen may be redrawn at the discretion of ordering physician. Performed By: #### L AB15 ####[facility] [id number] [place] [address] [place]#### [id number] ####[facility] [id number] [place] [address] [facility], [place] [phone] BUN (urea nitrogen) 14 mg/dL Normal 7-18 [facility] Comment on above: Performed By: #### L AB15 ####[facility] [id number] [place] [address] [place]#### [id number] ####[facility] [id number] [place] [address] [facility] AND [place] [id number], [place] [phone] Calcium 8.0 mg/dL Abnormal 8.5-10.1 [facility] Comment on above: Performed By: #### L AB15 ####[facility] [id number] [place] [address] [place]#### [id number] ####[facility] [id number] [place] [address] [facility] AND [place] [id number], [place] [phone] Chloride 109 mmol/L Abnormal 98-107 [facility] Comment on above: Performed By: #### L AB15 ####[facility] [id number] [place] [address] [place]#### [id number] ####[facility] [id number] [place] [address] [facility] AND [place] [address], [place] [phone] CO2 28 mmol/L Normal 21-32 [facility] Comment on above: Performed By: #### L AB15 ####[facility] CLIA [id number] [place] [address] [place]#### [id number] ####[facility] CLIA [id number] [place] [address] [facility] SERVICES[facility]U AND [facility], [place] [address] Creatinine 0.9 mg/dL Normal 0.60-1.3 [facility] Comment on above: Performed By: #### L AB15 ####[facility] CLIA [id number] [place] [address] [place]#### [id number] ####[facility] [id number] [place] [address] [facility] AND [facility], [place] [address] eGFR (black) mL/min/{1.73_m2} Normal >60 [facility] Comment on above: Result Comment: GFR is estimated using creatinine, age, gender, and race. Patient's values should be interpreted as a trend. For additional information: [email or web address] Performed By: #### L AB15 ####[facility] CLIA [id number] [place] [address] [place]#### [id number] ####[facility] CLIA [id number] [place] [address] [facility] SERVICESIND AND [facility], [place] [address] eGFR (non-black) mL/min/{1.73_m2} Normal >60 [facility] Comment on above: Result Comment: GFR is estimated using creatinine, age, gender, and race. Patient's values should be interpreted as a trend. For additional information: [email or web address] Performed By: #### L AB15 ####[facility] [id number] [place] [address] [place]#### [id number] ####[facility] [id number] [place] [address] [place] AND [place] [address], [phone] Glucose mass conc 114 mg/dL Abnormal 74-106 [facility] Comment on above: Performed By: #### L AB15 ####[facility] [id number] [place] [address] [place]#### [id number] ####RAZA AND [place] [id number] [place] [address] [facility] SERVICESINDU AND [place] [address], [phone] Potassium molar conc 4.1 mmol/L Normal 3.5-5.1 [facility] Comment on above: Performed By: #### L AB15 ####[facility] [id number] [place] [address] [place]#### [id number] ####[facility] [id number] [place] [address] [place] AND [place] [id number], [phone] Sodium 145 mmol/L Normal 136-145 [facility] Comment on above: Performed By: #### L AB15 ####[facility] [id number] [place] [address] [place]#### [id number] ####[facility] [id number] [place] [address] USAINDU AND [facility], [phone] CBC W/DIFFon 01-23-2018 Basophils/100 WBC Auto (Bld) 1.1 % Normal [facility] Comment on above: Performed By: #### L AB15 ####[facility] [id number] [address], [facility] [place]#### [id number] ####[facility] [id number] [address] [address], [address] [place] [address], [phone] BSA (Body Surface Area) 0.1 K/uL Normal 0.0-0.1 [facility] Comment on above: Performed By: #### L AB15 ####[facility] [id number] [address], [facility] [place]#### [id number] ####[facility] [id number] [address] [address], [address] [place] [address], [place] [phone] Eosinophils 0.4 10*3/uL Normal 0.0-0.4 [facility] Comment on above: Performed By: #### L AB15 ####[facility] [id number] [address], [place] [address] [place]#### [id number] ####[facility] [id number] [address] [address], [address] [place] [address] [address], [phone] Eosinophils 8.2 10*3/uL Normal [facility] Comment on above: Performed By: #### L AB15 ####[facility] [id number] [place] [address] [place]#### [id number] ####[facility] [id number] [place] [address] USA[place] AND [facility], [place] [phone] Erythrocyte distribution width Auto Ratio (RBC) 13.2 % Normal 11.7-15.2 [facility] Comment on above: Performed By: #### L AB15 ####RAZA AND [facility]ALB [facility] [id number] [place] [address] [place]#### [id number] ####[facility] [id number] [place] [address] [facility] SERVICES[facility] AND [facility], [place] [address] Erythrocytes (RBC) 5.32 10*6/uL Normal 4.30-5.86 [facility] Comment on above: Performed By: #### L AB15 ####[facility] [id number] [place] [address] [place]#### [id number] ####[facility] [id number] [place] [address] [place] [facility], [place] [address] Hematocrit (HCT) 45.5 % Normal 39.0-51.5 [facility] Comment on above: Performed By: #### L AB15 ####[facility] [id number] [place] [address] [place]#### [id number] ####[facility] [id number] [place] [address] [place] [facility], [place] [phone] Hemoglobin mass conc (Bld) 15.3 g/dL Normal 13.1-17.6 [facility] Comment on above: Performed By: #### L AB15 ####[facility] [place] [id number] [place] [address] [place]#### [id number] ####[facility] [place] [id number] [place] [address] [facility] SERVICESIND AND [place] [id number], [phone] Lymphocytes 22.0 10*3/uL Normal [facility] Comment on above: Performed By: #### L AB15 ####[facility] [id number] [place] [address] [place]#### [id number] ####[facility] [place] [id number] [place] [address] [facility] SERVICESINDU AND [place] [id number], [phone] Lymphocytes 1.1 10*3/uL Normal 0.8-3.6 [facility] Comment on above: Performed By: #### L AB15 ####[facility] [id number] [place] [address] [place]#### [id number] ####[facility] [id number] [place] [address] [facility] SERVICESINDU AND [place] [id number], [phone] MCH 28.7 pg Normal 28.4-33.4 [facility] Comment on above: Performed By: #### L AB15 ####[facility] [id number] [place] [address] [place]#### [id number] ####[facility] [id number] [place] [address] [facility] AND [facility], [phone] MCHC mass conc (RBC) 33.5 g/dL Normal 31.1-37.0 [facility] Comment on above: Performed By: #### L AB15 ####[facility] [id number] [place] [address] [place]#### [id number] ####[facility] [id number] [place] [address] [facility] AND [facility], [phone] MCV 85.6 fL Normal 85.0-99.0 [facility] Comment on above: Performed By: #### L AB15 ####[facility] [id number] [place] [address] [place]#### [id number] ####[facility] [id number] [place] [address] [facility] AND [place] [id number], [place] [phone] Monocytes 7.3 10*3/uL Normal [facility] Comment on above: Performed By: #### L AB15 ####[facility] [id number] [place] [address] [place]#### [id number] ####[facility] [id number] [place] [address] [facility] AND [facility], [place] [phone] Monocytes 0.4 10*3/uL Normal 0.3-0.9 [facility] Comment on above: Performed By: #### L AB15 ####[facility] [id number] [place] [address] [place]#### [id number] ####[facility] [place] [id number] [place] [address] [place] [facility], [phone] Neutrophils 3.1 10*3/uL Normal 2.0-7.3 [facility] Comment on above: Performed By: #### L AB15 ####[facility] [id number] [place] [address] [place]#### [id number] ####[facility] [place] [id number] [place] [address] [facility] SERVICESINDU AND [facility], [phone] Neutrophils 61.4 10*3/uL Normal [facility] Comment on above: Performed By: #### L AB15 ####[facility] [id number] [place] [address] [place]#### [id number] ####[facility] [place] [id number] [place] [address] [place] [facility], [phone] Platelets 187 10*3/uL Normal 154-393 [facility] Comment on above: Performed By: #### L AB15 ####[facility] [id number] [place] [address] [place]#### [id number] ####[facility] [place] [id number] [place] [address] [place] [facility] [place], [place] [phone] WBC (Leukocytes) 5.0 10*3/uL Normal 4.0-10.5 [facility] Comment on above: Performed By: #### L AB15 ####[facility] [id number] [place] 5802131 [facility]#### [id number] ####[facility] [id number] [address] AND [facility]35[address] [place], [place] [phone] CT-HEAD W/O CONTRASTon 01-23 CT-HEAD W/O CONTRAST [...] Finn Gentile MD, 01/23/2018 11:43 AM Normal [facility] EKG STANDARD 12 LEADon 01-23 Pulse (Heart Rate) RR Interval= 822 msP R Interval= 180 msQRSD Interval= 115 msQT Interval= 385 msQTc Interval= 425 msHeart Rate= 73 msP [place]= 60 degQRS [place]= -26 degT Wave [place]= 5 degI: 40 [place]= -12 degT: 40 [place]= -39 degST [place]= -61 degSinus rhythm Nonspecific intraventricular conduction delay Inferior infarct, old Electronically Signed by: Sherif Nam) 23-Jan-2018 10:43:27 Date and Time of Study: 2018-01-23 10:11:14 Normal [facility] TROPONIN Ion 01-23-2018 Troponin I.cardiac mass conc ng/mL Normal 0.000-0.04 5 [facility] Comment on above: Performed By: #### L AB15 ####[facility] [id number] [address]#### [id number] ####[facility] [id number] [address] AND [phone] Troponin I.cardiac mass conc Normal [facility] Comment on above: Result Comment: Trop onin I 0.045-0.600 is abnormal but not clinically relevant. Please correlate with other clinical findings. Troponin I >0.600 is clinically relevant in accordance with WHO criteria. Performed By: #### L AB15 ####[facility] [id number] [address]#### [id number] ####[facility] [id number] [address] Consultson 09-08-2016 Consults [facility]counter [facility] by Paris An RD at 09/08/2016 10:08 AMAuthor: ADDY Chauervice: NutritionAuthor Type: Registered DietitianFiled: 09/08/2016 10:09 AMNote Time: 09/08/2016 10:08 AMNote Type: ConsultsStatus: SignedEditor: Paris An RD (Registered Dietitian) Consult Orders: 1. IP Consult To Nutrition Care [[id number]] ordered by Jailene Flores MD at 09/07/16 [...] be available as needed for any questions. [facility] Procedureson 09-08-2016 Procedures Encounter Department [facility]Procedures by Asmita De at 09/08/2016 2:27 PMAuthor: Asmita Dawkinservice: CardiologyAuthor Type: TechnologistFiled: 09/08/2016 2:46 PMNote Time: 09/08/2016 2:27 PMNote Type: ProceduresStatus: SignedEditor: Asmita De (Technologist)Cosigner: Walt Mckeon MD at 09/08/2016 2:49 PMPatient InformationPatient NameSexDOOmar White1945 [id number] Progress Notes by Walt Mckeon MD at 09/08/2016 2:23 PMAuthor: ANDRESSA Huangervice: CardiologyAuthor Type: PhysicianFiled: 09/08/2016 2:27 PMNote Time: 09/08/2016 2:23 PMStatus: AddendumEditor: Walt Mckeon MD (Physician)Related Notes:Original Note by Walt Mckeon MD (Physician) filed at 09/08/2016 2:27 PMExpand All <#> Collapse All <#>BRENDAN ReportName: Janice Shultz Date/Time of Admission: 09/07/2016 7:48 AMCSN: [id number] Attending Provider: Dwight Jackson MD Room/Bed: R3306/Q7711DEIS: 1945 71 y.o.DATE OF PROCEDURE: 09/08/2016Procedure: Transesophageal [...] at bedside.Electronicallysigned by: Walt Mckeon MD 09/08/2016 [facility] Progress Noteson 09-08-2016 Progress Notes Encounter [facility] Notes by Dwight [...] Polo Jackson MD Electronicallysigned by: Verónica Holden APRN-ELECTRICIAN HELPER AUTOMOTIVE 09/08/2016Subjective: Patient states he is doing better. [...] KMCTime spent on DC process 35 minutes [facility] Progress Notes Encounter Department [facility] Notes by Alberto [...] be arranged by his local physicians in [facility] Progress Notes Encounter Department : [facility]Progress Notes by Walt Mckoen MD at 09/08/2016 2:23 PMAuthor: ANDRESSA Huangervice: CardiologyAuthor Type: PhysicianFiled: 09/08/2016 2:27 PMNote Time: 09/08/2016 2:23 PMNote Type: Progress NotesStatus: AddendumEditor: Walt Mckeon MD (Physician)Related Notes:Original Note by Walt Mckeon MD (Physician) filed at 09/08/2016 2:27 PMTEE ReportName: Janice Shultz Date/Time of Admission: 09/07/2016 7:48 [facility] [id number] Attending Provider: Ivan Deluna/Bed: R3306/Z9450V : 1945 71 y.o.DATE OF PROCEDURE: 09/08/2016Procedure: [...] bedside.Electronicallysigned by: Walt Mckeon MD 09/08/2016 Normal [facility] Progress Notes Encounter Department : [facility] AND [facility] MED SURG WESTProgress Notes by Kamla Ramos RN at 09/08/2016 2:24 PMAuthor: Kamla Ramos, RNService: (none)Author Type: Registered NurseFiled: 09/08/2016 2:25 PMNote Time: 09/08/2016 2:24 PMNote Type: Progress NotesStatus: SignedEditor: Kamla Ramos RN (Registered Nurse)Patient arrived to [facility] from [facility] in stable condition. Patient awake, resting in bed, VSS, willcontinue to monitor Normal [facility] Progress Notes Encounter Department : [facility] AND [facility] MED SURG WESTProgress Notes by Alberto Newman MD at 09/08/2016 12:12 PMAuthor: ANDRESSA Willervice: CardiologyAuthor Type: PhysicianFiled: 09/08/2016 1:45 PMNote Time: 09/08/2016 12:12 PMNote Type: Progress NotesStatus: SignedEditor: Alberto Newman MD (Physician)Related Notes:Original Note by Monet Wallace PA-C (Physician Strategic Partnership Manager) filed at 09/08/201612:15 PM Cardiology Progress NoteAssessment:Acute JZE-TMQ-tybsjnsm right side acute strokesA. Hx of CVA right parieto-occipital lobe 11/26 has been on Plavix, ASACarotid stenosis bilateral ICA 1-49% stenosis CAD s/p TX 2014 with stent p4-ZewwxaylEVGJBH-pp simvastatinHypertriglyceride [facility] Physician/Allergy/Immunology: Barbara Gupta:HR and BP stable. Have not [...] data filed at 09/08/16 1100Gross per 24 vvryImkgku707.17 mlOutput 200 pmBzy482.17 mlPhysical Exam:General AppearanceStanding, ambulating, NADHEENTNC/ATChestClearCardi ovascularRRR no [...] 10 mgOralNIGHTLY AT BEDTIMEMEDSINFUSIONS: -0.9 % sodium eqpkoewa84 mL/hr (09/08/16 0818)Imaging Studies: Reviewed in chartElectronicallysigned by: ALBERTO NEWMAN, 09/08/2016, 1:45 PM [facility] Progress Notes Encounter [facility]ress Notes by Lissette Valdovinos PTA at 09/08/2016 9:23 AMAuthor: Lissette Valdovinos PTAService: PT TreatmentAuthor Type: Physical Therapy AssistantFiled: 09/08/2016 12:24 PMNote Time: 09/08/2016 9:23 AMNote Type: Progress NotesStatus: SignedEditor: Lissette Valdovinos PTA (Superintendent Generating Plant)Related Notes:Original Note by Lissette Valdovinos PTA (Superintendent Generating Plant) filed 09/08/2016 11:57 AMCosigner: Jana Ashby, PT at 09/14/2016 12:30 PMC[facility] Clinic [facility] HospitalPhysical Therapy TreatmentAdmit date: 09/07/2016 Today's Date: 09/08/2016Patient Name/MR#: Janice Shultz [id number] Room: [facility]/R1574AUgobtpzvk Diagnosis: Left arm numbness [R20.0]TIA (transient ischemic attack) [G45.9]Admitting Provider:No admitting provider for patient encounter.Height:5' 11 (1.803 m) Weight: 196 lb 12.8 oz (89.268 kg)Recent Labs:Recent Labs 09/07/16 0816HEMOGLOBIN 15.3Current Medical Status: per chart review: 71 y.o. R - handed male presenting to [facility] with left arm numbness and tingling that [...] here visiting family, as pt is from [facility], when this occurred; pt and shareIA; pt [...] s:Barriers to Learning:NoneCognitionHearin gVisionMotivationReadinessJu dgmentInsightAwarenessEasily DistractedPre-MorbidMental StatusLanguage barrier(non-Central African speaking)Communication BarrierPainComments:Observat ions/Vitals: pt in bed with [...] 28 < 18 = High Risk of Uqrti05-29 = Moderate Risk > 24 = Low [...] will perform sit to stand transfers with TX.3. Pt will amb. 25 ft with SUP [...] 1 flight of stairs with HR and TX w/o LOB.Discharge Recommendations:PT Discharge Recommendations: Home with [...] 1220Total tx time: 10Timed coded minutes: 10 [facility] Progress Notes Encounter Department : [facility]Proess Notes by Devyn Bocanegra DO at 09/08/2016 10:33 AMAuthor: Marianne Mehtarvice: NeurologyAuthor Type: PhysicianFiled: 09/08/2016 11:48 AMNote Time: 09/08/2016 10:33 AMNote Type: Progress NotesStatus: SignedEditor: Devyn Bocanegra DO (Physician).Neurology Progress NoteSEARCY HOSPITALPatient Name: Janice ChandlerB: 1945MRN: [id number]:The patient was seen and examined. No acute changes over night, no new stroke symptoms. He feelspretty much back to his baseline.Objective:Current Facility-Administered MedicationsMedicationDoseRou teFrequencyProviderLast RateLast Dose -0.9 % sodium chloride infusion 50 mL/hrIntravenousCONTINUOUSSa kady Flores MD50 mL/hr at09/08/16 [id number] mL/hr at 09/08/16 0818 -0.9 % sodium [...] during the hospital encounter of 09/07/16Lipid PanelResultValueRef ZvhvlAmagibajbul720<=200 mg/oTIcqkjceuyretj941 (A)0-149 mg/dLHDL36 (A)40-60 mg/dLLDL Cholesterol0-99 mg/bLRZEP66 (A)0-40 mg/dL,No results found for this or any previous visit.Last Liver Function Results:No results for input(s): ALT, AST, BILIDIR, ALKPHOS in the last 168 hours.Invalid input(s): BILITOTALImaging/Other Studies:CT head: nonacute, stable old infarction in right parieto-occipital lobe, stable small vesselischemic disease.MRI brain: Multiple scattered embolic infarctions throughout the MCA/SAWMILL HAND distributionCUS: B 1-49%Echo: EF 60% November 2015Reviewed [...] brain: Multiple scattered embolic infarctions throughout the MCA/SAWMILL HAND distribution3. CUS: B 1-49%4. Echo: EF: 60%3.Risk Factors: age, HTN, recent infarct.4.Secondary stroke prevention: on ASA, Plavix and Zocor outpatient.5.Recommend BRENDAN as this patient has very likely embolic origin of infarctions with a stable ECHO.BRENDAN scheduled for 2. If this is normal, would recommend outpatient tank terminal gauger event monitoring.6.Follow up outpatient with stroke clinic7.Continue PT/OT/Judith Bocanegra DO 09/08/2016 [facility] Progress Notes Encounter Department : [facility]Progress Notes by Devyn Mcmahon OT at 09/08/2016 8:30 AMAuthor: SUNNY Olveraervice: OT TreatmentAuthor Type: Occupational TherapistFiled: 09/08/2016 10:55 AMNote Time: 09/08/2016 8:30 AMNote Type: Progress NotesStatus: SignedEditor: Devyn Mcmahon OT (Occupational Therapist)[facility] Occupational Therapy TreatmentAdmit date: 09/07/2016 Today's Date: 09/08/2016Patient Name/MR#: Janice Shultz [id number] [address]: [address] Diagnosis: Left arm numbness [R20.0]TIA (transient ischemic attack) [G45.9]Admitting Provider:No admitting provider for patient encounter.Height:5' 11 (1.803 m) Weight: 196 lb 12.8 oz (89.268 kg)Recent Labs:Recent Labs 09/07/16 0816HEMOGLOBIN 15.3Current Medical Status: per chart review: 71 y.o. R - handed male presenting to [facility] with left arm numbness and tingling that [...] here visiting family, as pt is from [facility], when this occurred; pt and shareIADL; pt [...] to LearningNoneCognitionHearing VisionMotivationReadinessEas lupe DistractedJudgmentInsightAwa renessPre-MorbidMental StatusLanguage barrierNon-Central African SpeakingCommunicationBarrier Observations/Vitals: pt seen supine with telemetry, [...] TransferxTub/Shower xFunctional Mobility Comments: bed mobility completed TX, use of unilateral BR. Pt completed STSfrom [...] ADL MI2. Pt will complete LB dressing TX, using AE as needed3. Pt will stand x10 minutes TX while completing ADL tasks with no inc [...] Time: 25Timed Code Minutes : 25 Normal [facility] BASIC METABOLIC PANELon 08-14 Anion gap 11 mmol/L Normal -16 [facility] Comment on above: Performed By: #### L AB320 ####[facility] [id number] [place] [address] [facility] AND [place] [address] [phone]#### [id number] ####[facility] [id number] [place] [address] [facility] BUN (urea nitrogen) 14 mg/dL Normal 7-18 [facility] Comment on above: Performed By: #### L AB320 ####[facility] CLIA [id number] [place] [address] [facility] AND [place] [id number], [place] [phone]#### [id number] ####[facility] CLIA [id number] [place] [address] [facility] Calcium 9.2 mg/dL Normal 8.5-10.1 [facility] Comment on above: Performed By: #### L AB320 ####[facility] [id number] [place] [address] [place] [facility], [place] [phone]#### [id number] ####[facility] CLIA [id number] [place] [address] [place] Chloride 101 mmol/L Normal 98-107 [facility] Comment on above: Performed By: #### L AB320 ####[facility] [id number] [place] [address] [place] [facility]35[address], [place] [phone]#### [id number] ####[facility] [id number] [place] [address] [place] CO2 27 mmol/L Normal 21-32 [facility] Comment on above: Performed By: #### L AB320 ####[facility] [id number] [place] [address] [place] [facility], [place] [phone]#### [id number] ####[facility] [id number] [place] [address] [place] Creatinine 1.03 mg/dL Normal 0.60-1.30 [facility] Comment on above: Performed By: #### L AB320 ####[facility] [id number] [place] [address] [place] [facility], [place] [phone]#### [id number] ####[facility] CLIA [id number] [place] [address] [place] eGFR (black) mL/min/{1.73_m2} Normal >60 [facility] Comment on above: Result Comment: GFR is estimated using creatinine, age, gender, and race. Patient's values should be interpreted as a trend. For additional information: [email or web address] Performed By: #### L AB320 ####[facility] CLIA [id number] [place] [address] [place] [facility], [place] [phone]#### [id number] ####[facility] CLIA [id number] [place] [address] [place] eGFR (non-black) mL/min/{1.73_m2} Normal >60 [facility] Comment on above: Result Comment: GFR is estimated using creatinine, age, gender, and race. Patient's values should be interpreted as a trend. For additional information: [email or web address] Performed By: #### L AB320 ####[facility] CLIA [id number] [place] [address] [place] [facility], [place] [phone]#### [id number] ####[facility] CLIA [id number] [place] [address] [place] Glucose mass conc 115 mg/dL Abnormal 74-106 [facility] Comment on above: Performed By: #### L AB320 ####[facility] CLIA [id number] [place] [address] [facility], [place] [phone]#### [id number] ####[facility] CLIA [id number] [place] [address] [place] Potassium molar conc 4.8 mmol/L Normal 3.5-5.1 [facility] Comment on above: Result Comment: Mode rate hemolysis present. Performed By: #### L AB320 ####[facility] CLIA [id number] [place] [address] [facility] AND [facility], [phone]#### [id number] ####[facility] CLIA [id number] [place] [address] [facility] Sodium 139 mmol/L Normal 136-145 [facility] Comment on above: Performed By: #### L AB320 ####[facility] [id number] [place] [address], [facility]31 [facility] AND [place] [id number], [phone]#### [id number] ####[facility] [id number] [place] [address] [facility] CBC W/DIFFon 09-07-2016 Basophils/100 WBC Auto (Bld) 1.0 % Normal [facility] Comment on above: Performed By: #### L AB320 ####[facility] [id number] [place] [address] [facility] AND [place] [id number], [phone]#### [id number] ####[facility] [id number] [place], [place] [address] BSA (Body Surface Area) 0.1 K/uL Normal 0.0-0.1 [facility] Comment on above: Performed By: #### L [id number] ####[facility] [id number] [place] [address] [facility] [place] [id number], [place] [address]#### [id number] ####[facility] [id number] [place] [address] [place] Eosinophils 0.2 10*3/uL Normal 0.0-0.4 [facility] Comment on above: Performed By: #### L [id number] ####[facility] [id number] [place] [address] [place] [id number], [place] [address]#### [id number] ####[facility] [id number] [place] [address] [place] Eosinophils 2.7 10*3/uL Normal [facility] Comment on above: Performed By: #### L [id number] ####[facility] [id number] [place] [address] [place] [address], [place] [address]#### [id number] ####[facility] [id number] [place] [address] [place] Erythrocyte distribution width Auto Ratio (RBC) 11.8 % Normal 11.7-15.2 [facility] Comment on above: Performed By: #### L [id number] ####[facility] [id number] [place] [address] [place] [address], [place] [address]#### [id number] ####[facility] [id number] [place] [address] [place] Erythrocytes (RBC) 5.42 10*6/uL Normal 4.30-5.86 [facility] Comment on above: Performed By: #### L [id number] ####[facility] [id number] [place] [address] [facility] SERVICESINDU AND [facility], [phone]#### [id number] ####[facility] [id number] [place] [address] [facility] Hematocrit (HCT) 45.8 % Normal 39.0-51.5 [facility] Comment on above: Performed By: #### L [id number] ####[facility] [id number] [place] [address] [facility] SERVICESINDU AND [place] [address], [address]#### [id number] ####[facility] [id number] [place] [address] [facility] Hemoglobin mass conc (Bld) 15.3 g/dL Normal 13.1-17.6 [facility] Comment on above: Performed By: #### L [id number] ####[facility] [id number] [place] [address] [place] [address], [address]#### [id number] ####[facility] [id number] [place] [address] [place] Lymphocytes 1.2 10*3/uL Normal 0.8-3.6 [facility] Comment on above: Performed By: #### L [id number] ####[facility] [id number] [place] [address] [facility] SERVICESINDU AND [place] [address], [phone]#### [id number] ####[facility] [id number] [place] [address] [place] Lymphocytes 13.9 10*3/uL Normal [facility] Comment on above: Performed By: #### L [id number] ####[facility] [id number] [place] [address] [facility] AND [place] [address], [place] [address]#### [id number] ####[facility] [id number] [place] [address] [facility] MCH 28.3 pg Abnormal 28.4-33.4 [facility] Comment on above: Performed By: #### L [id number] ####[facility] [id number] [place] [address] [facility] SERVICESINDU [facility] [place] [address], [place] [address]#### [id number] ####[facility] [id number] [place] [address] [facility] MCHC mass conc (RBC) 33.5 g/dL Normal 31.1-37.0 [facility] Comment on above: Performed By: #### L [id number] ####[facility] [id number] [place] [address] [facility] SERVICESINDU AND [place] [address], [address]#### [id number] ####[facility] [id number] [place] [address] [facility] MCV 84.5 fL Abnormal 85.0-99.0 [facility] Comment on above: Performed By: #### L [id number] ####[facility] [id number] [place] [address] [facility]35[address], [phone]#### [id number] ####[facility] [id number] [place] [address] [place] Monocytes 6.2 10*3/uL Normal [facility] Comment on above: Performed By: #### L [id number] ####[facility] [id number] [place] [address] [facility]35[address], [place] [phone]#### [id number] ####[facility] [id number] [place] [address] [place] Monocytes 0.5 10*3/uL Normal 0.3-0.9 [facility] Comment on above: Performed By: #### L [id number] ####[facility] [id number] [place] [address] [facility] [facility]35[address], [phone]#### [id number] ####[facility] [id number] [place] [address] [place] Neutrophils 6.8 10*3/uL Normal 2.0-7.3 [facility] Comment on above: Performed By: #### L [id number] ####[facility] [id number] [place] [address] [facility] [facility]35[address], [place] [phone]#### [id number] ####[facility] [id number] [place] [address] [place] Neutrophils 76.2 10*3/uL Normal [facility] Comment on above: Performed By: #### L [id number] ####[facility] CLIA [id number] [place] [address] [facility] [facility]35[address], [place] [address]#### [id number] ####[facility] [id number] [place] [address] [facility] Platelets 197 10*3/uL Normal 154-393 [facility] Comment on above: Performed By: #### L [id number] ####[facility] [id number] [place] [address] [facility] SERVICESINDU AND [place] [address], [place] [address]#### [id number] ####[facility] [id number] [place] [address] [facility] WBC (Leukocytes) 8.8 10*3/uL Normal 4.0-10.5 [facility] Comment on above: Performed By: #### L [id number] ####[facility] [id number] [place] [address] [facility] SERVICESINDU AND [place] [address], [place] [address]#### [id number] ####[facility] [id number] [place] [address] [facility] CT-HEAD W/O CONTRASTon 09-07 CT-HEAD W/O CONTRAST CT-HEAD W/O CONTRAS T DATE OF EXAM: 09/07/2016 8:07 AMCLINICAL INDICATION: CVAPATIENT INFORMATION: History: Left arm tingling and numbness that started this morning, right buddhist pain with activity. Patient had a stroke [...] by: Titus Kurtz MD, 09/07/2016 8:13 AM [facility] Consultson 09-07-2016 Consults Encounter Department : [facility] MED SURG WESTConsults by Franky Villalobos MD at 09/07/2016 2:32 PMAuthor: ANDRESSA Henryervice: CardiologyAuthor Type: PhysicianFiled: 09/07/2016 4:44 PMNote Time: 09/07/2016 2:32 PMNote Type: ConsultsStatus: SignedEditor: Franky Villalobos MD (Physician)Related Notes:Original Note by Monet Wallace PA-C (Physician Strategic Partnership Manager) filed at 09/07/2016 3:56 PM Consult Orders: 1. IP Consult to Cardiology [[id number]] ordered by Devyn Bocanegra DO at 09/07/16 1404Cardiology Inpatient ConsultName: Janice Kerr/Time of Admission: 09/07/2016 7:48 AMCSN: [id number] Provider: Ivan Russell/Bed: R3306/T8302PCWU: 1945 Age: 71 y.o.Assessment:Acute IIC-YAM-xaeqhduo right side acute strokesA. Hx of CVA right parieto-occipital lobe 11/26 has been on Plavix, ASACarotid stenosis bilateral ICA 1-49% stenosis CAD s/p [place] 2014 with stent l5-QmgdswiwCNTLTL-dv simvastatinHypertriglyceride [facility] Physician/Allergy/Immunology: Barbara Gupta:HR and BP stable. Have not [...] November 2015. 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 09/07/2016 8:26 AMORDERING PROVIDER:JAMESON [...] EPORTSinus rhythmPreliminary?REPORTPrel iminary?Nonspecific intraventricular conduction delay?Interpreting PhysPreliminary?Study Date/Gvui0381-91-50 08:32:39ECHO:4/16Summary:?1. Normal observed left ventricular ejection fraction of 60%.?2. Mild left ventricular diastolic dysfunction.?3. Mild concentric left ventricular hypertrophy.?4. Aortic root dilatation.?5. The aortic valve is calcified with no significant stenosis.Electronically signed by; Monet Wallace PA-C 09/07/2016 [facility] Cons[facility] WESTConsults by Devyn Bocanegra DO at 09/07/2016 9:47 AMAuthor: Marianne Mehtarvice: NeurologyAuthor Type: PhysicianFiled: 09/07/2016 11:02 AMNote Time: 09/07/2016 9:47 AMNote Type: ConsultsStatus: SignedEditor: Devyn Bocanegra DO (Physician) Consult Orders: 1. IP Consult to Neurology [[id number]] ordered by Jailene Flores MD at 09/07/16 0924[facility]SE[facility]OSPITALPatient Name:Janice Shultz : 1945Subjective:CC:71 y.o. R - handed male [facility] with left arm numbness andtingling that [...] supple, no meningeal signs; Fundoscopic: nopapilledemaHeart: RRR, J1L8Yjqqx: CTABAbd: soft/NT/ND, +BSExt: no edema, no calf [...] Tremors--none Rapidly alternating movements: no dysdiadochokinesia b/l Vwld-gl-Ugpt: no dysmetria b/l Xmmktj-fp-Lybr: no dysmetria b/lGait and stance: Gait: deferredLABS:Recent [...] us.Devyn Daljit, DO, 09/07/2016 9:48 AM Normal [facility] ED Provider Noteson 09-07-19 ED Provider Notes Encounter [facility] Provider Notes by Jameson [...] weakness in his arm.He has had prior TX and history of hypertension. Patient denies any [...] take Zocor without problems,PHYSICAL EXAM:VITAL SIGNS:ED Triage GmlzkmNA18/26/17 5448163/89 rrYqOedd00/26/17 840218.3 ?F (36.8 ?C)Heart Rate09/07/16 280258Vdtp95/26/17 252310FrJ579/26/17 113613 %Ofqojy34/26/17 4963421 lb (86.183 kg)[place] Coma Scale Score09/07/16 211444CMH (Calculated)09/07/16 885772.6Constitutional: mild acute distress, Non-toxic appearanceHENT: Normocephalic, Atraumatic, [...] x 3,NIH Stroke ScaleInterval: BaselinePerson Administering Scale: [facility] stroke scale items in the [...] make aspecial effort).1a Level of consciousness:0=alert; keenly tbnwaaihis5z.LOC questions: 0=Performs both tasks kzchahuiy1p.LOC commands:0=Performs both tasks correctly2. Best Gaze:0=normal3. Visual:0=No visual loss4.Facial Palsy:0=Normal symmetric fxnmvzdp0d. Motor left arm:0=No drift, limb holds 90 (or 45) degrees for full 10 xcrkrsu2o. Motor right arm:0=No drift, limb holds 90 (or 45) degrees for full 10 kqrnmev0z.motor left le=No drift, limb holds 90 (or 45) degrees for full 10 toepgmd1o Motor right le=No drift, limb holds 90 (or 45) degrees for full 10 seconds7.Limb Ataxia:0=Absent8. Sensory:0=Normal; no sensory loss9.Best Language: 0=No aphasia, lxadua17.Dysarthria:0=Normal 11.Extinction and Inattention:0=No illzcssxfap92.Distal motor function:0=NormalTotal: 0Skin: Warm, No rash, no [...] 8:13 AMXR-Chest PA AND LATNarrativeEXAM:XR-CHEST PA AND LATACCESSION:[id number] TE OF SERVICE: 09/07/2016 8:26 AMORDERING PROVIDER:JAMESON [...] - Abnormal; Notable for the following:MCV84.5 (*)85.0-99.0 gkYlfhpUTM12.3 (*)28.4-33.4 pgFinalAll other components within normal limitsBASIC METABOLIC PANEL - Abnormal; Notable for the following:Fvnuyin861 (*)74-106 mg/dLFinalAll other components within normal limitsGLUCOSE POC RESULTS - Abnormal; Notable for the following:POC Kaicdov772 (*)74-106 mg/dLFinalAll other components within normal limitsNarrative:Point [...] criteria.POC GLUCOSE, BLOOD BY GLUCOSE MONITORING DEVICE (ACCUCHImperator)EXTRA TUBE-SSTBP 168/89 mmHg Pulse 77 Temp(Src) 98.3 ?F (36.8 ?C) Resp 16 Ht 5' 11 (1.803 m) Wt 190 lb(86.183 kg) BMI 26.51 kg/m2 SpO2 99%FINAL IMPRESSION:LLF-0-RPEBL-10-CM 1.Left arm rmqejczp044.0R20.0Electronic allysigned by: Jameson Sheridan, 09/07/2016Jameson Sheridan MD09/07/16 0917Jameson Sheridan MD09/07/16 0917 Normal [facility] EKG STANDARD 12 LEADon 09-07 Pulse (Heart Rate) RR Interval= 845 msP R Interval= 167 msQRSD Interval= 118 msQT Interval= 383 msQTc Interval= 417 msHeart Rate= 71 msP [place]= 47 degQRS [place]= -31 degT Wave [place]= 3 degI: 40 [place]= -47 degT: 40 [place]= -40 degST [place]= 61 degSinus rhythm Left axis deviation Electronically Signed by: Alberto Newman) 08-Sep-2016 07:49:38 Date and Time of Study: 2016-09-07 08:32:39 Normal [facility] HEMOGLOBIN A1Con 09-07-2016 Glucose mass conc 131 mg/dL Abnormal 68-126 [facility] Comment on above: Performed By: #### L AB320 ####[facility] [id number] [place] [id number] [facility] AND [facility]35[address], [place] [address]#### [id number] ####[facility] [id number] [place] [address] [facility] Hemoglobin A1c/Hemoglobin.total mass fraction (Bld) 6.2 % Abnormal 4.0-6.0 [facility] Comment on above: Performed By: #### L AB320 ####[facility] [id number] [place] [address] [facility] AND [place] [address] [facility] [address], [place] [address]#### [id number] ####[facility] [id number] [facility] BARROWVDBEAVERCRE, [address] Hemoglobin A1c/Hemoglobin.total mass fraction (Bld) Normal [facility] Comment on above: Result Comment: Ther apeutic goals for glycemic control:-Goal of therapy :< 7.0% QiB6w-Mqkkgg suggested: >8.0% HbA1c Performed By: #### L AB320 ####[facility] [id number] [place] [address] [facility] AND [place] [address] [facility] [address], [place] [address]#### [id number] ####[facility] [id number] [facility] [place] [address] [facility] History and Physicalon 09-07 History and Physical Encounter Departmen t: [facility] MED SURG WESTHANDP by Jailene Flores MD at 09/07/2016 9:30 AMAuthor: ANDRESSA Russellervice: Internal MedicineAuthor Type: PhysicianFiled: 09/07/2016 5:17 PMNote Time: 09/07/2016 9:30 AMNote Type: HANDPStatus: SignedEditor: Jailene Flores MD (Physician)History and Physical Patient Name: Janice ChandlerB: 1945MRN#: [id number] Room / Bed : ED 07/24 [facility] Date of Service: 09/07/2016CSN: [id number] Admit Date: 09/07/2016 7:48 AM Attending Physician: [...] but would use IV Hydralazine 10 mg Y6wgRKK for SBP > 160For further risk stratification, [...] no subcutaneous nodule palpatedPertinent Data:Last BMP Results:Recent NikeRqk20/26/17 9060MF880G5.9RI444ZG484OBJ55 CREATININE1.26VZB211*CALCIUM 9.2No results found for this or any previous visit.Last CBC w diff Results:Recent FothIsn49/26/17 6738DNW1.9IJXHJAYQDZ89.3HCT4 5.8MHM691CIM2.08YPHQ00.5MCH2 8.3*RDW11.8KNGYBJKGMTL24.2MO NOCYTES6.2Last Liver Function Results:No results for input(s): [...] @ 71 bpmThis note was created using [employer] Speaking dictation softwareJailene Flores MD09/07/2016 @ 9:30 AM Normal [facility] LDL CHOLESTEROL, DIRECTon LDL CHOLESTEROL DIRECT 100 mg/dl Normal 0-100 [facility] Comment on above: Performed By: #### L AB320 ####[facility] CLIA [id number] [place] [id number] [facility] AND [place] [address]37235 [facility] CenterBeGerald [facility]ille [phone]#### [id number] ####[facility] CLIA [id number] [place] 5408331 [facility] LDL CHOLESTEROL, DIRECT Normal [facility] Comment on above: Result Comment: ATP III Classification of LDL, Total and HDL Cholesterol (mg/dl)LDL Cholesterol: <100 Optimal 100-129 Near optimal/above optimal 130-159 Borderline high 160-189 High =190 Very high Performed By: #### L AB320 ####[facility] [id number] [place], [facility]31 [facility] AND [facility], [place] [address]#### [id number] ####[facility] [id number] [address], [facility]31 [facility] LIPID PANELon 09-07-2016 Cholesterol 191 mg/dL Normal <=200 [facility] Comment on above: Performed By: #### L AB320 ####[facility] [id number] [place], [facility]31 [facility] AND [place] [address]235 [address], [place] [address]#### [id number] ####[facility] [id number] [place], [facility]31 [facility] Cholesterol 36 mg/dL Abnormal 40-60 [facility] Comment on above: Performed By: #### L AB320 ####[facility] [id number] [place] [address], [facility]31 [facility] AND [facility], [place] [phone]#### [id number] ####[facility] [id number] [place] [address], [facility]31 [facility] LDL Cholesterol Normal 0-99 [facility] Comment on above: Result Comment: LDL calculation is invalid because the triglyceride level is equal to or greater than 400 mg/dl. Performed By: #### L AB320 ####[facility] [id number] [place] [address] [facility] AND [place] [address]235 [address] vdBeKe[place] [phone]#### [id number] ####[facility] [id number] [place] [address] [facility] LIPID PANEL Normal [facility] Comment on above: Result Comment: ATP III Classification of LDL, Total and HDL Cholesterol (mg/dL)LDL Cholesterol: <100 Optimal 100-129 Near optimal/above optimal 130-159 Borderline high 160-189 High >=190 Very highTotal Cholesterol: <200 Desirable 200-239 Borderline high >=240 HighHDL Cholesterol: <40 Low >=60 High Performed By: #### L AB320 ####[facility] [id number] [place] [address] [facility] AND [place] [address], [address]#### [id number] ####[facility] [id number] [place] [address] [place] Triglyceride 413 mg/dL Abnormal 0-149 [facility] Comment on above: Performed By: #### L AB320 ####[facility] [id number] [place] [address] [facility] AND [place] [address], [place] [address]#### [id number] ####[facility] [id number] [place] [address] [place] VLDL CHOLESTEROL 83 mg/dL Abnormal 0-40 [facility] Comment on above: Performed By: #### L AB320 ####[facility] [id number] [place] [address] [facility] AND [place] [address]235 [address], [place] [phone]#### [id number] ####[facility] CLIA [id number] [place], [address] MAGNESIUMon 09-07-2016 Magnesium 1.7 mg/dL Normal 1.5-2.3 [facility] Comment on above: Performed By: #### L AB320 ####[facility] [id number] [place] [address], [address]ST[address] [facility], [place] [address]#### [id number] ####[facility] [id number] [facility], [address] MRI-HEAD WO CONTRASTon 09-07 MRI-HEAD WO [...] report was called to Dr. Dalila WANG [facility] IR MedSurg3.This dictation was created with voice recognition software. While attempts have been made to review the dictation as it is transcribed, on occasion the spoken word can be misinterpreted by the technology leading to omissions or inappropriate words, phrases or sentences.Electronically Signed by: Janice Mayorga MD, 09/07/2016 1:50 PM Normal [facility] PARTIAL THROMBOPLASTon 09-07 PARTIAL THROMBOPLASTIN TIME MECHANICAL 41.2 Seconds Abnormal 27.0-39.0 [facility] Comment on above: Performed By: #### L AB320 ####[facility] [id number] [place], [id number]vdBeavercreRobert Ville [id number] ####[facility] [id number] [address], [address] PROTIME-INRon 09-07-2016 INR Coag RelTime (Bld) [facility] Comment on above: Result Comment: Cond ition and INR Therapeutic Range:Deep venous thrombosis 2.0-3.0Pulmonary embolism 2.0-3.0Acute myocardial infarction 2.0-3.0Atrial fibrillation 2.0-3.0Antiphospholipid syndrome (no other risk factors) 2.0-3.0Antiphospholipid syndrome with recurrent thromboembolism 2.5-3.0Bioprosthetic (tissue) valve 2.0-3.0Mechanical prosthetic valves 2.0-3.0 or 2.5-3.5 depending on valve type and location Performed By: #### L AB320 ####[facility] [id number] [place] BLVDBEAVERCR[place], [address] AND [facility] BlvdBeavercreekKiara [place] [phone]#### [id number] ####[facility] CLIA [id number] [place] [address] [facility] INR Coag RelTime (PPP) 1.1 {INR} Normal 0.8-1.1 [facility] Comment on above: Performed By: #### L AB320 ####[facility] CLIA [id number] [place] [address], [facility]31 [facility] AND [facility]vd[address], [place] [address]#### [id number] ####[facility] [id number] [place] [address], [address] Prothrombin time (PT) Coag time (PPP) 11.8 s Normal 9.3-12.3 [facility] Comment on above: Performed By: #### L AB320 ####[facility] [id number] [place] [address], [facility]31 [facility] AND [place] [address]37235 [address]vd[place]averc[address], [place] [address]#### [id number] ####[facility] [id number] [place] [address], [address] INR Coag RelTime (Bld) Normal [facility] Comment on above: Result Comment: Cond ition and INR Therapeutic Range:Deep venous thrombosis 2.0-3.0Pulmonary embolism 2.0-3.0Acute myocardial infarction 2.0-3.0Atrial fibrillation 2.0-3.0Antiphospholipid syndrome (no other risk factors) 2.0-3.0Antiphospholipid syndrome with recurrent thromboembolism 2.5-3.0Bioprosthetic (tissue) valve 2.0-3.0Mechanical prosthetic valves 2.0-3.0 or 2.5-3.5 depending on valve type and location Performed By: #### L AB320 ####[facility] CLIA [id number] [place] [address], [address] AND [place] 6937235 [place] [address]#### [id number] ####[facility] [place] [id number] [facility], [address] INR Coag RelTime (PPP) 1.0 {INR} Normal 0.8-1.1 [facility] Comment on above: Performed By: #### L AB320 ####[facility] [id number] [facility], [address] AND [place] [address]#### [id number] ####[facility] [id number] [facility], [address] Prothrombin time (PT) Coag time (PPP) 11.3 s Normal 9.3-12.3 [facility] Comment on above: Performed By: #### L AB320 ####[facility] [id number] [facility], [address] AND [place] [address] [place] [address]#### [id number] ####[facility] [id number] [facility], [address] Progress Noteson 09-07-2016 Progress Notes Encounter [facility]Progress Notes by Vickie [...] Cayla gonzalez.Awaiting a return call.Vickie Sanchez Normal [facility] TROPONIN Ion 09-07-2016 Troponin I.cardiac mass conc ng/mL Normal 0.000-0.04 5 [facility] Comment on above: Performed By: #### L AB320 ####[facility] [id number] [facility] HOSPITALVDBEAVEROAKLAWN [facility], [address] AND [place] [phone] PentSt. Francis Hospital & Heart CenterBeaverPamela [place] [address]#### [id number] ####[facility] [id number] [address] Troponin I.cardiac mass conc Normal [facility] Comment on above: Result Comment: Trop onin I 0.045-0.600 is abnormal but not clinically relevant. Please correlate with other clinical findings. Troponin I >0.600 is clinically relevant in accordance with WHO criteria. Performed By: #### L AB320 ####[facility] [id number] [facility] VDBEAVEROAKLAWN HOSPITAL, [address] AND [place] 6937235 [facility] CenterBeErica V[place] [address]#### [id number] ####[facility] [id number] [facility] BARROWVDBEAVEROAKLAWN HOSPITAL, [address] TSHon 09-07-2016 Thyroid stimulating hormone (TSH) 0.705 uIU/mL Normal 0.358-3.74 0 [facility] Comment on above: Performed By: #### L AB320 ####[facility] CLIA [id number] [facility]BEAVEROAKLAWN HOSP[facility], [address] AND [place] 6937235 [facility] hospital BlvdBeaverPamela [place] [address]#### [id number] ####[facility] [id number] [place] [address] [place] URINALYSIS MICROSCOPIC ONLYo n 09-07-2016 AMORPHOUS CRYSTALS 2+ /lpf Abnormal Negative [facility] Comment on above: Performed By: #### L AB320 ####[facility] CLIA [id number] [place] [address] [facility] AND [facility]vd[address], [place] [phone]#### [id number] ####[facility] [id number] [place] [address] [place] URINE MUCOUS 2+ /lpf Abnormal Negative [facility] Comment on above: Performed By: #### L AB320 ####[facility] [id number] [place] [address] [facility] AND [facility]35[address], [phone]#### [id number] ####[facility] [id number] [place] [address] [place] URINE WHITE BLOOD CELLS 0-3 Normal 0-3 [facility] Comment on above: Performed By: #### L AB320 ####[facility] [id number] [place] [address] [facility] AND [facility]35[address], [phone]#### [id number] ####[facility] CLIA [id number] [place] [address] [place] Urine, bacteria in sediment Trace Abnormal Negative [facility] Comment on above: Performed By: #### L AB320 ####[facility] [id number] [place] [address] [facility] AND [facility]vd[address], [place] [phone]#### [id number] ####[facility] [id number] [place] [address] [place] Urine, epithelial cells in sediment 0-3 Normal 0-3 [facility] Comment on above: Performed By: #### L AB320 ####[facility] [id number] [place] [address] USAIND[place] AND [facility]35[address]vdBeaverc[address], [place] [phone]#### [id number] ####[facility] [id number] [place] [address] [place] URINALYSIS W/REFLEX MICROSCO PYon 09-07-2016 BILIRUBIN, UA Negative Normal Negative [facility] Comment on above: Performed By: #### L AB320 ####[facility] [id number] [place] [address] USAINDU AND [facility]35[address]vdBe[address], [place] [phone]#### [id number] ####[facility] [id number] [place] [address] [place] BLOOD, UA Negative Normal Negative [facility] Comment on above: Performed By: #### L AB320 ####[facility] [id number] [place] [address] USAINDU AND [facility]35[address]vdBe[address], [place] [phone]#### [id number] ####[facility] [id number] [place] [address] [place] GLUCOSE, UA Negative Normal Negative [facility] Comment on above: Performed By: #### L AB320 ####[facility] [id number] [place] [address] USAIND[place] AND [facility]35[address]vdBe[address], [place] [phone]#### [id number] ####[facility] [id number] [place] [address] [place] KETONES, UA Negative Normal Negative [facility] Comment on above: Performed By: #### L AB320 ####[facility] [id number] [place] [address] USA[place] AND [facility]35[address], [phone]#### [id number] ####[facility] [place] [id number] [place] [address] [place] LEUKOCYTES, UA Negative Normal Negative [facility] Comment on above: Performed By: #### L AB320 ####[facility] [id number] [place] [address] USAINDU AND [facility]35[address], [phone]#### [id number] ####[facility] [id number] [place] [address] [place] PH, UA 7.5 Normal 5.0-8.0 [facility] Comment on above: Performed By: #### L AB320 ####[facility] [id number] [place] [address] USA[place]U AND [facility]35[address]vd[address], [place] [phone]#### [id number] ####[facility] [id number] [place] [address] [place] PROTEIN, UA Negative Normal Negative [facility] Comment on above: Performed By: #### L AB320 ####[facility] [id number] [place] [address] [facility] AND [facility]35[address]vdBe[address], [place] [phone]#### [id number] ####[facility] [id number] [place] [address] [place] SPECIFIC GRAVITY, UA 1.020 Normal 1.001-1 .03 5 [facility] Comment on above: Performed By: #### L AB320 ####[facility] [id number] [place] [address] [facility] AND [facility]35[address]vdBe[address], [place] [phone]#### [id number] ####[facility] [id number] [place] [address] [facility] Urine, appearance Slightly Cloudy Abnormal [facility] Comment on above: Performed By: #### L AB320 ####[facility] [id number] [place] [address] [facility] AND [place] 6937235 [address]vd[place], [phone]#### [id number] ####[facility] [id number] [place] [address] [facility] Urine, color Yellow Normal Yellow [facility] Comment on above: Performed By: #### L AB320 ####[facility] [id number] [place] [address] [facility] AND [facility]35[address]vd[address], [phone]#### [id number] ####[facility] [id number] [place] [address], [facility]31 [facility] Urine, nitrite presence Negative Normal Negative [facility] Comment on above: Performed By: #### L AB320 ####[facility] [id number] PENTSOUTHEASTERN ARI[facility] BLVDBEAVERCREEK, [facility]31 [facility] AND [place] 6937235 PentSt. John's Riverside HospitalvdBeavercreMichael [place] [address]#### [id number] ####[facility] [id number] PENTFOUR WINDS PSYCHIATRIC HOSPITALVDBEAVERCREEK, [address] UROBILINOGEN, UA 0.2 EU/dL Normal 0.2-1.0 [facility] Comment on above: Performed By: #### L AB320 ####[facility] [id number] PENTFOUR WINDS PSYCHIATRIC HOSPITALVDBEAVERCREEK, [address] AND [place] 6937235 PentSt. John's Riverside HospitalvdBeavercreekTony [place] [address]#### [id number] ####[facility] [id number] PENTF[facility] WINDS PS[facility]CHIATRIC HOSPITALVDBEAVEROAKLAWN HOSPITAL, [address] VAS-CAROTID DOP BILAT 26930z n 09-07-2016 VAS-CAROTID DOP BILAT 75872 A result will not be generated for this exam.VAS-CAROTID DOP BILAT 29252Ysksbf for Exam: tia/cva. REASON FOR EXAM: tia/cvaDEMOGRAPHICS: [...] by: Bharat Jones MD, 09/07/2016 1:25 PM [facility] XR-CHEST PA AND LATon 2016 XR-CHEST PA AND LAT EXAM: XR-CHEST PA & LATACCESSION: [id number] OF SERVICE: 09/07/2016 8:26 AMORDERING PROVIDER:JAMESON SHERIDAN [...] by: Kay Lew DO, 09/07/2016 8:29 AM [facility] Progress Noteson 11-29-2015 Progress Notes Progress Notes by STACI De Los Santos at 11/29/2015 9:21 AMAuthor: ESTELLE Heathervice: (none)Author Type: Social WorkerFiled: 11/29/2015 9:24 AMNote Time: 11/29/2015 9:21 AMNote Type: Progress NotesStatus: SignedEditor: STACI Heath (Conveyor System Operator)SOCIAL WORK DISCHARGE SUMMARY NOTEName:Janice Shultz Date:11/29/2015MR#:[id number] B:1945Room #:R3323/E4308QAwi/Sex:70 y.o. maleAdmit Date:11/25/2015Admitting:Same er ANDRESSA Floreservices: Discharge summaryAgency: None at this time.Patient Information patient presented with cerebral vascular accidentTransportation [facility] provided discharge paperworkDischarge Plan patient to return home with no post acute needsAdditional Narrative: Normal [facility] Discharge Summarieson 2015 Discharge Summaries Discharge Summaries by Rahul Phillips MD at 11/26/2015 3:05 PMAuthor: ANDRESSA Bachervice: Internal MedicineAuthor Type: PhysicianFiled: 11/26/2015 6:42 PMNote Time: 11/26/2015 3:05 PMNote Type: Discharge SummariesStatus: SignedEditor: Rahul Phillips MD (Physician)Name: Janice ShultzDate/Time of Admission: 11/25/2015 5:54 [facility]: [id number] [facility]/F1442ZXRZ: 1945 Age: 70 y.o.DISCHARGE SUMMARYDate of Admission: 11/25/2015Date of Discharge: 11/26/2015[facility] Left arm weakness, slurred speech, dizzinessConsultants: Dr. Mehta, neurologyProcedures: noneSignificant Tests during this Admission:Significant LabsRecent UntiZlp42/ 80450911/25/15 6967DEC2.07.3OSTUMLAQPD90.41 5.6HCT45.346.9ADX152717TAX6. 275.06MLOI79.934.0MCH29.129. 3RDW13.113.5WQCADXEDXIB79 --KUTGDPDKU07 --Recent DgbdDyj78/ 0713AB081K9.1WR519YC216CND44 CREATININE1.14PSM282*CALCIUM 8.6Radiological findings:Ct-angio Head W And/or Wo Con [...] Ibanez DO, 11/25/2015 6:03 AMVas-carotid Dop Bilat [id number] IMPRESSION: 1-49% stenosis bilateral internal carotid arteries. [...] air entry +Heart:S1, S2+Abdomen soft, non-tenderExtremities no edema/cyanosis.TELEGRAPHIC SERVICE DISPATCHER: AAO X3, No focal deficits.Discharge Diagnoses:Acute CVAHypertensionHyperlipidemi aHistory of [place] in the pastDischarge Instructions and Follow upActivity: [...] minutesElectronically signed: Rahul Phillips MD 11/26/2015Dr. Rahul [facility], [address] [phone] [facility] Progress Noteson 11-26-2015 Progress Notes Progress Notes by Ra brando Hall OT at 11/26/2015 11:17 AMAuthor: SUNNY Stollervice: MAGDI TreatmentAuthor Type: Occupational TherapistFiled: 11/26/2015 3:01 PMNote Time: 11/26/2015 11:17 AMNote Type: Progress NotesStatus: SignedEditor: Georgia Hall OT (Occupational Therapist)Occupational Therapy TreatmentAdmit date: 11/25/2015 Today's Date: 11/26/2015Patient Name/MR#: Janice Shultz [id number] Room: [facility]/D2777UKpnbxfjpq Diagnosis: CVA (cerebral vascular accident) [I63.9]Admitting Provider:Jailene [...] here visiting family, as pt is from [facility], when this occurred; pt andwife share IADL; [...] to LearningNoneCognitionHearing VisionMotivationReadinessEas lupe DistractedJudgmentInsightAwa renessPre-MorbidMental StatusLanguage barrierNon-Central African SpeakingCommunicationBarrier Observations/Vitals: Pt supine in bed with [...] was able to use L hand to picker small objects fromtable top with increased [...] at waistToiletingDenied needADL Comments:MobilityIndMod-ISup CG/MINModMaxTotalNot Addressed this tsvmmeoYtqzumlDYfy-BxyTSeu-L upX pt up on chair at end [...] given to pt with numerous exercises trialedBalance:SittingStatic -EWyofarl-OTqnoyhagPfzpeu-JA ynamic-SPatient Summary:The patient continues to exhibit the [...] tasks within his environment: progressingDischarge Recommendation:HomeHome w/ Maamjx98Xs Supervision/AssistHome Care TherapyInpt Rehab UnitSNF/ECFOP OTComments:D/C Equipment NeedsNoneShower iasln7-ky-4Ivo KitHospital BedStd WalkerFWWRollator / 4WWStd CaneQuad CaneW/C*Patient [...] Treatment Time: 38Timed Code Minutes : 38 [facility] Progress Notes Progress Notes by STACI De Los Santos at 11/26/2015 2:51 PMAuthor: ESTELLE Heathervice: (none)Author Type: Social WorkerFiled: 11/26/2015 2:54 PMNote Time: 11/26/2015 2:51 PMNote Type: Progress NotesStatus: SignedEditor: STACI Heath (Conveyor System Operator)Social Service Ongoing CareServices: Discharge planningAgency: None at this time.Comments: reviewed chart, processed patient information in IDT meeting. Patient to return home withno post acute needs at this time. Patient to return home to [place], [place]. Care coordination tocontinue following this patient.STACI Newell 8-96-24Llcxhrozn plan: home with no post acute needs.Barriers: none at this time. [facility] 2D COMPLETE ECHO (COLORFLOW, DOPPLER)on 11-25-2015 2D COMPLETE ECHO (COLORFLOW,DOPPLER) [address] [address] PH: [phone] ECHOCARDIOGRAM REPORT Pt. Name: JANICE SHULTZ : 1945 70 Date: 11/25/2015/3:39:53 PM years MR# [id number] Sex: M Blood Pressure: 153/90 Ht: 71 in BSA: 2.04 Location: 3323 Wt: 184 lb Technologist: Referring Physician: [id number] MARIA TERESA DENT Indications: Abnormal ECG Study [...] Pk Grad RA Pressure 5 mmHg RVSP [id number] . Pulmonary Artery: MR PISA Radius MR Alias Velocity MR VMax MR EROA TV Inflow E max TV Mn Grad PV PV Vmax PV Pk Grad PV Mn Grad COMPARISON TO PREVIOUS EXAMINATION: Final Normal [facility] BASIC METABOLIC PANELon 04- Anion gap 6 mmol/L Abnormal 02-25 [facility] Comment on above: Performed By: #### L AB15 ####[facility] [id number] [facility] [place] [address] [facility]#### [id number] ####[facility] CLIA [id number] [place] [address] [facility] AND [place] [id number] [place], [place] [phone] BUN (urea nitrogen) 13 mg/dL Normal -18 [facility] Comment on above: Performed By: #### L AB15 ####[facility] [id number] [place] [address] [place]#### [id number] ####[facility] [place] [id number] [place] [address] USA[place] AND [facility]35[address]vdBeavercreek, [place] [phone] Calcium 8.6 mg/dL Normal 8.5-10.1 [facility] Comment on above: Performed By: #### L AB15 ####[facility] [id number] [place] [address] [place]#### [id number] ####[facility] [place] [id number] [place] [address] USA[place] AND [facility]35[address]vdBeaverc[address], [place] [phone] Chloride 105 mmol/L Normal 98-107 [facility] Comment on above: Performed By: #### L AB15 ####[facility] [id number] [place] [address] [place]#### [id number] ####[facility] [place] [id number] [place] [address] [place] AND [facility]35[address]vdBeaverc[address], [place] [phone] CO2 31 mmol/L Normal 21-32 [facility] Comment on above: Performed By: #### L AB15 ####[facility] [id number] [place] [address] [place]#### [id number] ####[facility] [place] [id number] [place] [address] [place] AND [facility]35[address]vdBeaverc[address], [place] [phone] Creatinine 1.12 mg/dL Normal 0.60-1.30 [facility] Comment on above: Performed By: #### L AB15 ####[facility] CLIA [id number] [place] [address] [place]#### [id number] ####[facility] CLIA [id number] [place] [address] [facility] AND [facility]35[address]vd[address], [phone] eGFR (black) mL/min/{1.73_m2} Normal >60 [facility] Comment on above: Result Comment: GFR is estimated using creatinine, age, gender, and race. Patient's values should be interpreted as a trend. For additional information: [email or web address] Performed By: #### L AB15 ####[facility] [id number] [place] [address] [place]#### [id number] ####[facility] [id number] [place] [address] [facility] AND [facility]35[address], [place] [phone] eGFR (non-black) mL/min/{1.73_m2} Normal >60 [facility] Comment on above: Result Comment: GFR is estimated using creatinine, age, gender, and race. Patient's values should be interpreted as a trend. For additional information: [email or web address] Performed By: #### L AB15 ####[facility] CLIA [id number] [place] [address] [place]#### [id number] ####[facility] CLIA [id number] [place] [address] [facility] AND [facility]35[address], [place] [phone] Glucose mass conc 112 mg/dL Abnormal 74-106 [facility] Comment on above: Performed By: #### L AB15 ####[facility] [id number] [place] [address] [place]#### [id number] ####[facility] [place] [id number] [place] [address] [facility] AND [place] [id number] [address], [place] [phone] Potassium molar conc 3.8 mmol/L Normal 3.5-5.1 [facility] Comment on above: Performed By: #### L AB15 ####[facility] [id number] [place] [address] [place]#### [id number] ####[facility] [id number] [place] [address] [facility] SERVICESINDU AND [place] [id number] [address], [place] [phone] Sodium 142 mmol/L Normal 136-145 [facility] Comment on above: Performed By: #### L AB15 ####[facility] [id number] [place] [address] [place]#### [id number] ####[facility] [id number] [place] [address] [facility] [facility] [place] [id number], [place] [phone] CBC W/DIFFon 11-25-2015 Basophils/100 WBC Auto (Bld) 1 % Normal [facility] Comment on above: Performed By: #### L [id number] ####[facility] [id number] [place] [address], [address] BSA (Body Surface Area) 0.0 K/uL Normal 0.0-0.1 [facility] Comment on above: Performed By: #### L [id number] ####[facility] [id number] [address], [place] [address] [place] Eosinophils 5 10*3/uL Normal [facility] Comment on above: Performed By: #### L [id number] ####[facility] [id number] [place] [address], [address] Eosinophils 0.3 10*3/uL Normal 0.0-0.4 [facility] Comment on above: Performed By: #### L [id number] ####[facility] [id number] [place] [address], [address] Erythrocyte distribution width Auto Ratio (RBC) 13.1 % Normal 11.7-15.2 [facility] Comment on above: Performed By: #### L [id number] ####[facility] [id number] [place] [address], [address] Erythrocytes (RBC) 5.27 10*6/uL Normal 4.30-5.86 [facility] Comment on above: Performed By: #### L [id number] ####[facility] [id number] [place] [address], [address] Hematocrit (HCT) 45.3 % Normal 39.0-51.5 [facility] Comment on above: Performed By: #### L [id number] ####[facility] [id number] [place] [address], [address] Hemoglobin mass conc (Bld) 15.4 g/dL Normal 13.1-17.6 [facility] Comment on above: Performed By: #### L [id number] ####[facility] [id number] [place] [address], [address] Lymphocytes 1.8 10*3/uL Normal 0.8-3.6 [facility] Comment on above: Performed By: #### L [id number] ####[facility] [id number] [place] [employer]BE[employer], [facility]31 [facility] Lymphocytes 30 10*3/uL Normal [facility] Comment on above: Performed By: #### L [id number] ####[facility] [id number] [place] [employer], [address] MCH 29.1 pg Normal 28.4-33.4 [facility] Comment on above: Performed By: #### L [id number] ####[facility] [id number] PENTHuman Demand Competitive TechnologiesBEZubie, [address] MCHC mass conc (RBC) 33.9 g/dL Normal 31.1-37.0 [facility] Comment on above: Performed By: #### L [id number] ####[facility] [id number] PENTVerari SystemsOAKLA[facility], [address] MCV 86.0 fL Normal 85.0-99.0 [facility] Comment on above: Performed By: #### L [id number] ####[facility] [id number] PENTHuman Demand Competitive TechnologiesBEAdiCyteOAKLAWN HOSPITAL, [facility]31 [facility] Monocytes 10 10*3/uL Normal [facility] Comment on above: Performed By: #### L AB293 ####[facility] [id number] PENTNewtopiaBEZubie, [address] Monocytes 0.6 10*3/uL Normal 0.3-0.9 [facility] Comment on above: Performed By: #### L [id number] ####[facility] [id number] PENTNewtopiaBEZubie, [facility]31 [facility] Neutrophils 3.2 10*3/uL Normal 2.0-7.3 [facility] Comment on above: Performed By: #### L [id number] ####[facility] [id number] [place] [address] [facility] Neutrophils 54 10*3/uL Normal [facility] Comment on above: Performed By: #### L [id number] ####[facility] [id number] [place] [address] [facility] Platelets 177 10*3/uL Normal 154-393 [facility] Comment on above: Performed By: #### L [id number] ####[facility] [id number] [place] [address], [facility]31 [facility] WBC (Leukocytes) 6.0 10*3/uL Normal 4.0-10.5 [facility] Comment on above: Performed By: #### L [id number] ####[facility] [id number] [place] [facility], [facility]31 [facility] CBC W/O DIFFon 11-25-2015 Erythrocyte distribution width Auto Ratio (RBC) 13.1 % Normal 11.7-15.2 [facility] Comment on above: Performed By: #### L [id number] ####[facility] [id number] [place] [facility]DBEAVEROAKLAWN HOSP[facility], [facility]31 [facility] Erythrocytes (RBC) 5.32 10*6/uL Normal 4.30-5.86 [facility] Comment on above: Performed By: #### L [id number] ####[facility] [id number] [place] BLVD[place], [facility]31 [facility] Hematocrit (HCT) 46.0 % Normal 39.0-51.5 [facility] Comment on above: Performed By: #### L [id number] ####[facility] [id number] [place] BLVDBEAVERCRE, [facility]31 [facility] Hemoglobin mass conc (Bld) 15.6 g/dL Normal 13.1-17.6 [facility] Comment on above: Performed By: #### L [id number] ####[facility] [id number] [facility], [address] MCH 29.3 pg Normal 28.4-33.4 [facility] Comment on above: Performed By: #### L [id number] ####[facility] [id number] [facility], [address] MCHC mass conc (RBC) 34.0 g/dL Normal 31.1-37.0 [facility] Comment on above: Performed By: #### L [id number] ####[facility] [id number] [address] MCV 86.4 fL Normal 85.0-99.0 [facility] Comment on above: Performed By: #### L [id number] ####[facility] [id number] [address] Platelets 176 10*3/uL Normal 154-393 [facility] Comment on above: Performed By: #### L [id number] ####[facility] [id number] [address] WBC (Leukocytes) 7.4 10*3/uL Normal 4.0-10.5 [facility] Comment on above: Performed By: #### L [id number] ####[facility] [id number] [address]-ANGIO HEAD W AND/OR WO CO [...] by: Louis Mead D.O., 11/26/2015 6:28 AM [facility] CT-ANGIO NECK W AND/OR WO CO N [...] by: Louis Mead D.O., 11/26/2015 6:28 AM [facility] CT-HYPERACUTE HEAD WO CON [facility] 11-25-2015 CT-HYPERACUTE HEAD WO CON [...] by: Carlos Ibanez DO, 11/25/2015 6:06 AM [facility] Consultson 11-25-2015 Consults Consults by Chau anthony MD at 11/25/2015 3:09 PMAuthor: ANDRESSA Chaconervice: NeurologyAuthor Type: PhysicianFiled: 11/25/2015 5:04 PMNote Time: 11/25/2015 3:09 PMNote Type: ConsultsStatus: SignedEditor: Chau Mehta MD (Physician) Consult Orders: 1. IP Consult to Neurology [[id number]] ordered by Jailene Flores MD at 11/25/15 1102Neurointerventional Consult [facility] FacilityPatient Name:Janice Shultz : 1945Subjective:Reason for consult: Stroke like njzwoudk47 y.o. -handed male presenting to [facility] emergency department around 6 AMtoday with [...] mgOralNIGHTLY AT BEDTIMEContinuous Infusions: -0.9 % sodium cpsthkaj376 mL/hr (11/25/15 1107)PRN Meds:.ALPRAZolam, hydrALAZINE, ondansetron OR [...] bruits, neck supple, no meningeal signs;Heart: RRR, U3E2Gxlnm: CTABExt: no edema, no calf tenderness b/lPsych: [...] Decreased with the left hand otherwise normal Wocv-lj-Ptlh: no dysmetria b/l. Jwaqfz-zo-Qqpk: Left upper extremity dysmetria.Gait and stance: Gait: [...] free to contact us.Chau Mehta MD, 11/25/2015 [facility] Consults Consults by Valarie Mendez RD at 11/25/2015 1:48 PMAuthor: ADDY Nicoleervice: NutritionAuthor Type: Registered DietitianFiled: 11/25/2015 1:48 PMNote Time: 11/25/2015 1:48 PMNote Type: ConsultsStatus: SignedEditor: Valarie Mendez RD (Registered Dietitian) Consult Orders: 1. IP Consult To Nutrition Care [[id number]] ordered by Jelena Sommer MD at 11/25/15 [...] Valarie Mendez RD, LD 11/25/2015 1:48 PM [facility] ED Provider Noteson 11-25-19 16 ED Provider [...] at bedtime.ALLERGIESNo Known AllergiesPHYSICAL EXAMVITAL SIGNS:ED Triage CfiuggSM78/14/16 4465320/96 arSrIoom57/14/16 006463.8 ?F (36.6 ?C)Heart Rate11/25/15 243143Ujku67/14/16 756230JxZ701/14/16 9953924 %Weight--Gee Coma Scale Score11/25/15 696293RUU (Calculated)--Constitutional : Well developed, Well nourished, No [...] oriented x 3,GCS 15, NIH stroke scale cm7Njaexqkxzuh: Affect normal, Judgment normal, Mood normal.EKGEKG InterpretationInterpreted by: Kay JeanTime of EKRhythm: normal sinusRate: normalAxis: normalEctopy: noneConduction: normalST Segments: no acute changeT Waves: no acute changeQ Waves: noneClinical Impression: no acute changesComparison: None available at this timeLabs ReviewedBASIC METABOLIC PANEL - Abnormal; Notable for the following:Anion Gap6 (*)7-16 mmol/EDonfgDchevmj264 (*)74-106 mg/dLFinalAll other components within normal limitsPARTIAL THROMBOPLAST - Abnormal; Notable for the following:PTT42.8 (*)27.0-39.0 SecondsFinalAll other components within normal limitsGLUCOSE POC RESULTS - Abnormal; Notable for the following:POC Mdsoaxz715 (*)70-100 mg/dLFinalAll other components within normal limitsNarrative:Point [...] the case in depth with the 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 Patient hasanelectrolyte abnormalities or signs of infection at this time. Patient was reexamined multipletimes here in the emergency department. Patient seems to be improving slightly. Patient will beadmitted to medical service with neurology consult and further observation and care. Patient andfamily understand and agree with this plan.The patient's scheduled substances prescription history was reviewed using the [employer] database.This patient wasn't found to have a prescription history that was concerning for drug abusediversion or aberrant behavior.FINAL JXBGKAKJBSOVE-6-PXECV-10-CM1 .CVA (cerebral vascular accident)434.91I63.9I have personally provided 30 minutes of critical care time (excluding separately listedprocedures) through obtaining a history, examining the patient, reviewing relevant medical records,discussing care with family and/or other providers, performing multiple reassessments and directingcare.Electronically signed by: Kay Jean, 11/25/2015Micwilli Jean, DO11/25/15 0703 [facility] History and Physicalon 11-24 History and Physical HANDP by Jailene huber MD at 11/25/2015 10:54 AMAuthor: ANDRESSA Russellervice: Internal MedicineAuthor Type: PhysicianFiled: 11/25/2015 3:16 PMNote Time: 11/25/2015 10:54 AMNote Type: HANDPStatus: AddendumEditor: Jailene Flores MD (Physician)Related Notes:Original Note by Jailene Flores MD (Physician) filed at 11/25/2015 11:01 AMHistory and PhysicalASSESSMENT AND PLAN:1. TIA vs evolving stroke2. HTN3. HL4. Hx of [place] in past5. Chest painPLAN:Patient came to hospital [...] at bedtime.ALLERGIESNo Known AllergiesPHYSICAL EXAMVITAL SIGNS:ED Triage AqkvwyNV89/14/16 5015597/96 ybYpLglq82/14/16 150687.8 ?F (36.6 ?C)Heart Rate11/25/15 923832Qgbk48/14/16 838393EoM225/14/16 3473205 %Rxwkem77/14/16 5689279 lb (83.462 kg)[place] Coma Scale Score11/25/15 075828RPS (Calculated)11/25/15 414834.7Gen: NAD, looks appropriate for ageEye: No Discharge,ESTHER, [...] sensory call. Lt. 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,Cranial Nerve II-XII grosslyintact and symmetricalPsychs: Appropriate mood [...] Abnormal; Notable for the following:Anion Gap6 (*)7-16 mmol/MIpbgcCjkyvut084 (*)74-106 mg/dLFinalAll other components within normal limitsPARTIAL THROMBOPLAST - Abnormal; Notable for the following:PTT42.8 (*)27.0-39.0 SecondsFinalAll other components within normal limitsGLUCOSE POC RESULTS - Abnormal; Notable for the following:POC Rocvzvw892 (*)70-100 mg/dLFinalAll other components within normal limitsNarrative:Point [...] Ibanez DO, 11/25/2015 6:03 AMVAS-CAROTID DOP BILAT 73160 (Results Pending)I have personally reviewed all imaging and agree with the read(s) as outlined above.Jailene Flores MD11/25/2015 @ 10:54 AM Normal [facility] MRI-HEAD WO CONTRASTon 11-24 MRI-HEAD WO CONTRAST [...] Shon Cerda M.D., 11/25/2015 9:10 AM Normal [facility] PARTIAL THROMBOPLASTon 11-24 PARTIAL THROMBOPLASTIN TIME MECHANICAL 42.8 Seconds Abnormal 27.0-39.0 [facility] Comment on above: Performed By: #### L [id number] ####[facility] CLIA [id number] [place] [address] [facility] [place], [place] [phone]#### [id number] ####[facility] [id number] [place] [address] [facility] PROTIME-INRon 11-25-2015 INR Coag RelTime (PPP) 1.0 {INR} Normal 0.9-1.2 [facility] Comment on above: Performed By: #### L AB320 ####[facility] [id number] [place] [address], [facility]31 [facility]vd[address], [phone]#### [id number] ####[facility] [id number] [place] [address], [address] Prothrombin time (PT) Coag time (PPP) 11.1 s Normal 9.3-12.3 [facility] Comment on above: Performed By: #### L AB320 ####[facility] [id number] [place] [address], [facility]31 [facility] AND [facility], [phone]#### [id number] ####[facility] [id number] [place] [address], [facility]31 [facility] INR Coag RelTime (Bld) Normal [facility] Comment on above: Result Comment: Cond ition and INR Therapeutic Range:Deep venous thrombosis 2.0-3.0Pulmonary embolism 2.0-3.0Acute myocardial infarction 2.0-3.0Atrial fibrillation 2.0-3.0Antiphospholipid syndrome (no other risk factors) 2.0-3.0Antiphospholipid syndrome with recurrent thromboembolism 2.5-3.0Bioprosthetic (tissue) valve 2.0-3.0Mechanical prosthetic valves 2.0-3.0 or 2.5-3.5 depending on valve type and location Performed By: #### L AB320 ####[facility] [id number] [facility] [place] [address] [place] AND [facility] [place], [place] [phone]#### [id number] ####[facility] [id number] [facility] [place] [address] [facility] Progress Noteson 11-25-2015 Progress Notes Progress Notes by JASPER Torrez at 11/25/2015 4:23 PMAuthor: JASPER DoService: SHELL TRIM TOOL SETTER EvaluationAuthor Type: Speech and LanguagePathologistFiled: 11/25/2015 4:38 PMNote Time: 11/25/2015 4:23 PMNote Type: Progress NotesStatus: AddendumEditor: JASPER Do (Speech and Language Pathologist)Related Notes:Original Note by JASPER Do (Speech and Language Pathologist) filedat 11/25/2015 4:37 PMRehab MedicineSpeech Therapy EvaluationAdmit date: 11/25/2015 Today's Date: 11/25/2015Patient Name/MR#: Janice Shultz [id number]:5' 11 (1.803 m) Weight: 184 lb (83.462 kg)Current Room: [id number] Diagnosis: CVA (cerebral vascular accident) [I63.9]Admitting Provider:NARCISO [...] here visiting family, as pt is from [facility], when this occurred; pt andwife share IADL; [...] restrictedPragmatics: WFL; pt appropriately interacted with this SHELL TRIM TOOL SETTER, made eye contact, appeared tounderstand body gestures [...] this date.Cognition: WFL; demonstrated appropriate short and detention memory recall on all tasksadministered. Demonstrated simple and complex problem solving in 5/5 trials. Demonstratedappropriate reasoning in 3/3 trials, abstract reasoning 3/3 trials, and categorization in 4/4trials.Assessment summary/severity: Patient presents with functional expressive/receptive andcognitive-linguistic skills upon assessment this date. Patient oriented appropriately, able to makewants and needs known. Attention, simple and moderately complex problem solving, immediate and group home recall appropriate on all tasks completed [...] and patient working towards planned discharge:HomeHome w/ Vmzafb11Zt Supervision/AssistHome Care TherapyInpt Rehab UnitSNF/ECFOP SLPPlan: (as discussed with patient/family and agreed upon)The SHELL TRIM TOOL SETTER Rehab Plan will consist of, but not limited to the following:AphasiaCog/Linguis ticCommunication/Language TherapyFacial e-stimVideostrobeDysarthriaA praxiaVoice D/C skilled SHELL TRIM TOOL SETTER services as the patient is at pre-morbid baselineThank you for allowing me to participate in the care of this patient.Carrie Macias MA CCC-SLPTime In: 1603 Time Out: 1622Total Treatment Time: 19 minutes [facility] Progress Notes Progress Notes by JASPER Torrez at 11/25/2015 3:58 PMAuthor: Liliya oDe: (none)Author Type: Speech and Language PathologistFiled: 11/25/2015 4:00 PMNote Time: 11/25/2015 3:58 PMNote Type: Progress NotesStatus: SignedEditor: JASPER Do (Speech and Language Pathologist)[facility] Medicine and RehabilitationAdmit date: 11/25/2015 Today's Date: 11/25/2015Patient Name/MR#: Janice Shultz [id number] was attempted for at 1544 for an initial speech evaluation.Therapy was not completed secondary to pt currently with certified technician specialist in room.Will reattempt as appropriate.Thank you for involving me in the care of this patient.Carrie Macias MA CCC-SHELL TRIM TOOL SETTER [facility] Progress Notes Progress Notes by JASPER Naranjo ra at 11/25/2015 10:23 AMAuthor: Carito Rebolledo: (none)Author Type: Speech and Language PathologistFiled: 11/25/2015 11:32 AMNote Time: 11/25/2015 10:23 AMNote Type: Progress NotesStatus: SignedEditor: JASPER Rebolledo (Speech and Language Pathologist)[facility] Medicine and RehabilitationAdmit date: 11/25/2015 Today's Date: 11/25/2015Patient Name/MR#: Janice Shultz [id number] Speech Evaluation Attempt:Speech -Date Initial Eval Attempted: 11/25/15peech -Time Initial Eval Attempted: 1023Speech -Reason Eval Not Completed: Patient Unavailable, Other (comment)Comments: Patient working with PT/OT.Speech evaluation will be reattempted as appropriate.Thank you for involving me in the care of this patient.Maria C Peck MA, CCC-SHELL TRIM TOOL SETTER [facility] Progress Notes Progress Notes by STACI Nichole at 11/25/2015 10:16 AMAuthor: ESTELLE Matamoroservice: (none)Author Type: Social WorkerFiled: 11/25/2015 10:22 AMNote Time: 11/25/2015 10:16 AMNote Type: Progress NotesStatus: SignedEditor: STACI Matamoros (Conveyor System Operator)SOCIAL WORK INITIAL ASSESSMENTName:Janice Shultz Date:11/25/2015MR#:[id number] B:1945Room #:R3323/M8224WYtd/Sex:70 y.o. maleAdmit Date:11/25/2015Admitting:Same er ANDRESSA Floreservices:Discharge planningAgency:noneReferral [...] his daughter and grandchildren. He usually resides [place], [place] with his and is fully independent. Discussed with patient services available bydischarge planning. The patient denied any need for services from discharge planning. Social workto continue to follow. CLARA Matamoros, STACI [facility] REPEAT TROPONIN 120 MINUTES FROM FIRST DRAWon 11-25-2015 Troponin I.cardiac mass conc ng/mL Normal 0.000-0.[address] [place] [address] Comment on above: Performed By: #### L [id number] ####[facility] CLIA [id number] [place] [address] [place] Troponin I.cardiac mass conc Normal [facility] Comment on above: Result Comment: Trop onin I 0.045-0.600 is abnormal but not clinically relevant. Please correlate with other clinical findings. Troponin I >0.600 is clinically relevant in accordance with WHO criteria. Performed By: #### L [id number] ####[facility] [id number] [place] [address] [place] TROPONIN Ion 11-25-2015 Troponin I.cardiac mass conc ng/mL Normal 0.000-0.[address] [place] [address] Comment on above: Performed By: #### L [id number] ####[facility] [id number] [place] [address] [facility] SERVICESIND AND [facility]35[address]vdBeaverTim [place] [phone] Troponin I.cardiac mass conc Normal [facility] Comment on above: Result Comment: Trop onin I 0.045-0.600 is abnormal but not clinically relevant. Please correlate with other clinical findings. Troponin I >0.600 is clinically relevant in accordance with WHO criteria. Performed By: #### L [id number] ####[facility] [id number] [place] [address] [facility] SERVICESINDU AND [facility], [phone] Performed By: #### L AB15 ####[facility] CLIA [id number] [place] [address] [place]#### [id number] ####[facility] [id number] [place] [address] USAIND[place] AND [phone] Troponin I.cardiac mass conc ng/mL Normal 0.000-0.04 5 [facility] Comment on above: Performed By: #### L AB15 ####[facility] [id number] [place] [address] [place]#### [id number] ####[facility] [id number] [address], [facility]31 USAINDU AND [place] [phone], [phone] URINALYSIS W/REFLEX MICROSCO PYon 11-25-2015 BILIRUBIN, UA Negative Normal Negative [facility] Comment on above: Performed By: #### L [id number] ####[facility] [id number] [place] [address] [place] BLOOD, UA Negative Normal Negative [facility] Comment on above: Performed By: #### L AB347 ####[facility] [id number] [place] [address] [place] GLUCOSE, UA Negative Normal Negative [facility] Comment on above: Performed By: #### L AB347 ####[facility] [id number] [place] [address] [place] KETONES, UA Negative Normal Negative [facility] Comment on above: Performed By: #### L AB347 ####[facility] [id number] [place] [address] [place] LEUKOCYTES, UA Negative Normal Negative [facility] Comment on above: Performed By: #### L AB347 ####[facility] [id number] [place] [address] [place] PH, UA 6.5 Normal 5.0-8.0 [facility] Comment on above: Performed By: #### L AB347 ####[facility] [id number] [place] [address] [place] PROTEIN, UA Negative Normal Negative [facility] Comment on above: Performed By: #### L AB347 ####[facility] CLIA [id number] [place] [place] [address] [place] SPECIFIC GRAVITY, UA 1.025 Normal 1.001-1 .03 5 [facility] Comment on above: Performed By: #### L [id number] ####[facility] [id number] [place] [address] [place] Urine, appearance Clear Normal Clear [facility] Comment on above: Performed By: #### L [id number] ####[facility] [id number] [place] [address] [place] Urine, color Yellow Normal Yellow [facility] Comment on above: Performed By: #### L [id number] ####[facility] [id number] [place] [address] [place] Urine, nitrite presence Negative Normal Negative [facility] Comment on above: Performed By: #### L [id number] ####[facility] [id number] [place] [address] [place] UROBILINOGEN, UA 0.2 EU/dL Normal 0.2-1.0 [facility] Comment on above: Performed By: #### L [id number] ####[facility] [id number] [place] [address] [place] VAS-CAROTID DOP BILAT [id number] n 11-25-2015 VAS-CAROTID DOP BILAT 92028 A result will not be generated for [...] by: Patel Villatoro DO, 11/25/2015 11:24 AM [facility] XR-CHEST PORTABLE Kiana XR-CHEST PORTABLE STAT XR-CHEST [...] by: Carlos Ibanez DO, 11/25/2015 6:03 AM [facility] Vital Signs Date Time Vital Sign Value Performing Clinician Facility 10-04-2023 08:29-0500 Diastolic blood pressure 70 mm[Hg] MD Sherif Paredes Work Phone: [facility] 10-04-2023 08:29-0500 Systolic blood pressure 120 mm[Hg] MD Sherif Paredes Work Phone: [facility] 10-04-2023 04:52-0500 Heart rate 75 /min MD Sherif Paredes Work Phone: [facility] 10-04-2023 04:44-0500 Body temperature 98 [degF] MD Sherif Paredes Work Phone: [facility] 10-04-2023 04:44-0500 Respiratory rate 20 /min MD Sherif Paredes Work Phone: [facility] 10-04-2023 04:44-0500 SaO2% (BldA) [Mass fraction] 94 % MD Sherif Paredes Work Phone: [facility] 09-30-2023 05:34-0500 Body weight 79.8 kg MD Sherif Paredes Work Phone: [facility] 09-26-2023 09:35-0500 Body height 180.34 cm MD Sherif Paredes Work Phone: [facility] 12-12-2022 14:00-0400 Body height 180.34 cm Trinh Leo Other [facility] Other 12-12-2022 14:00-0400 Body mass index (BMI) [Ratio] 25.66 kg/m2 Trinh Santanalm Other [facility] Other 12-12-2022 14:00-0400 Body temperature 97.3 [degF] Trinh Santanalm Other [facility] Other 12-12-2022 14:00-0400 Body weight 83.46 kg Trinh Santanalm Other [facility] Other 12-12-2022 14:00-0400 Diastolic blood pressure 82 mm[Hg] Trinh Leo Other [facility] Other 12-12-2022 14:00-0400 SaO2% (BldA) [Mass fraction] 93 % Trinh Santanalm Other [facility] Other 12-12-2022 14:00-0400 Systolic blood pressure 124 mm[Hg] Trinh Santanalm Other [facility] Other 03-29-2022 10:28-0400 Body height 180.34 cm Sherif Lofton Defrance Work Phone: [facility] 250 DO Work Phone: 03-29-2022 10:28-0400 Body mass index (BMI) [Ratio] 26.5 kg/m2 Sherif Lofton Defrance Work Phone: [facility] 250 DO Work Phone: 03-29-2022 10:28-0400 Body surface area Derived from formula 2.06 m2 Sherif Lofton Defrance Work Phone: [facility] 250 DO Work Phone: 03-29-2022 10:28-0400 Body weight 86.18 kg Sherif Lofton Defrance Work Phone: [facility] 250 DO Work Phone: 03-29-2022 10:28-0400 Diastolic blood pressure 76 mm[Hg] Sherif Lofton Defrance Work Phone: [facility] 250 DO Work Phone: 03-29-2022 10:28-0400 Heart rate 60 /min Sherif Lofton Defrance Work Phone: [facility] DO Work Phone: 03-29-2022 10:28-0400 Systolic blood pressure 124 mm[Hg] Sherif Lofton Defrance Work Phone: [facility] 250 DO Work Phone: 12-06-2021 13:15-0400 Body height 180.34 cm Trinh Santanalm Other [facility] Other 12-06-2021 13:15-0400 Body mass index (BMI) [Ratio] 25.66 kg/m2 Trinh Bailey Other [facility] Other 12-06-2021 13:15-0400 Body weight 83.46 kg Trinh Bailey Other [facility] Other 12-06-2021 13:15-0400 Diastolic blood pressure 72 mm[Hg] Trinh Bailey Other [facility] Other 12-06-2021 13:15-0400 SaO2% (BldA) [Mass fraction] 97 % Trinh Bailey Other [facility] Other 12-06-2021 13:15-0400 Systolic blood pressure 138 mm[Hg] Trinh Bailey Other [facility] Other Encounters Encounter Date Encounter Type Care Provider Facility Start: 10-05-2023 Telephone encounter Eri guadarrama RN Work Phone: [facility] Comment on above: Transition Of Care Start: 10-03-2023 Non-patient / Non-visit MD Reyes id Defrance Work Phone: [facility] Work Phone: Start: 10-03-2023 Non-patient / Non-visit MD Reyes id Defrance Work Phone: [facility] Work Phone: Start: 09-26-2023 Orders Only Anel Llamas RN [facility] Comment on above: 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 (CMS-HCC) (Primary Dx); Other cerebrovascular vasospasm and vasoconstriction Start: 09-26-2023 Non-patient / Non-visit MD Reyes id Defrance Work Phone: [facility] Work Phone: Start: 09-25-2023 End: 10-04-2023 Evaluation and management of inpatient Sherif Paredes Facility:[facility] Start: 09-25-2023 End: 10-04-2023 Evaluation and management of inpatient MD Sherif Paredes Work Phone: [facility] Work Phone: Start: 09-20-2023 End: 09-25-2023 Evaluation and management of inpatient [facility] Start: 09-20-2023 End: 09-25-2023 Evaluation and management of inpatient [facility] Start: 09-20-2023 ambulatory SHERIF PAREDES [facility] Start: 09-20-2023 End: 09-25-2023 Evaluation and management of inpatient [facility] Start: 05-04-[address] [place] Facility: Start: 12-12-2022 End: 12-12-2022 ambulatory Trinh Bailey [facility] Other Start: 12-12-2022 Patient encounter procedure Trinh jeter [facility] Vascular Surgery Start: 11-24-2022 Rx Renewal Sherif caballero Work Phone: [facility] 250 DO Work Phone: Start: 11-20-2022 Telephone encounter [facility] Avendano [facility] Work Phone: Start: 09-12-2022 Rx Renewal Sherif caballero [facility] Phone: [facility] Work Phone: Start: 04-24-2022 End: 04-24-[address] CAITIE PITTS Facility:[facility] Start: 04-20-2022 Rx Renewal Sherif caballero Work Phone: [facility] 250 DO Work Phone: Start: 03-29-2022 Office outpatient vi sit 15 minutes Sherif Paredes Work Phone: [facility] 250 DO Work Phone: Start: 02-23-2022 Rx Renewal Sherif Rodas ce Work Phone: [facility] DO Work Phone: Start: 02-04-2022 End: 02-04-[address] EUGENE PICKETT Facility:[facility]1 Start: 12-06-2021 End: 12-06-2021 ambulatory Trinh Bailey Other [facility] Other Start: 12-06-2021 Follow-up encounter Trinh Balderas [facility] Start: 09-13-2021 End: 09-13-[address] KENY MUELLER Facility:[facility]1 Start: 05-17-2021 Chart Update Sherif Rodas ce Work Phone: [facility] 250 DO Work Phone: Start: 05-17-2021 Patient encounter procedure Da jacyyuri Rolly Defrance Work Phone: [facility] [place] Work Phone: Start: 03-26-2018 Patient encounter PROVIDER UNKNOWN F acility:[id number] Start: 01-23-2018 End: 01-23-2018 Emergency department patient visit PROVIDER NOT IN [facility] Start: 09-07-2016 End: 09-08-2016 Evaluation and management of inpatient JAMESON SHERIDAN [facility] Start: 11-25-2015 End: 11-26-2015 Evaluation and management of inpatient KAY JEAN [facility] Procedures Date Procedure Procedure Detail Performing Clinician [...] Adult BMI Screening Adult BMI Screen ing [facility] Start: 09-20-2024 Depression Screening Depression Scre ening [facility] Start: 09-20-2024 Tobacco Screening Tobacco Screening [facility] Start: 11-08-2023 End: 11-08-2023 Patient encounter procedure 11/08/2023 2:00 PM EDT Office Visit [facility] [address] [place] [id number] Gopal Nova MD [address] [place] [address], [address] [place] [address] [facility] Start: 10-22-2023 End: 10-22-2023 Patient encounter procedure 10/22/2023 2:15 PM EDT Office Visit [facility] [address] [place] [address] Sherif Paredes MD [address] [place], [place] [id number] [facility] Start: 10-16-2023 End: 10-16-2023 Patient encounter procedure 10/16/2023 10:15 AM EST Office Visit [facility] [place] [address] Sherif Paredes MD [address] [place] [address] [facility] Start: 10-04-2023 [facility] Start: 09-26-2023 [facility] Start: 09-26-2023 End: 09-26-2024 Event Monitor (In Office) [facility] Work Phone: Comment on above: Expected: 09/26/2023 , Expires: 09/26/2024 Start: 09-25-2023 Hospital admission [facility] Start: 09-25-2023 Referral to clinical process design engineer [facility] Start: 07-23-2023 COVID-19 Vaccine () COVID-19 Vaccine () [facility] Start: 04-26-2023 FUV, Provider: [place], Status: Pen, Time: 10:30 AM FUV, Provider: [place], Status: Pen, Time: 10:30 AM [facility] 250 DO Work Phone: Start: 03-22-2023 FUV, Provider: [place], Status: Pen, Time: 11:20 AM FUV, Provider: [place], Status: Pen, Time: 11:20 AM [facility] DO Work Phone: Start: 03-29-2022 FUV, Provider: [place], Status: Pen, Time: 10:30 AM FUV, Provider: [place], Status: Pen, Time: 10:30 AM [facility] 250 DO Work Phone: Start: 12-20-2021 FUV, Provider: [place], Status: Pen, Time: 11:15 AM FUV, Provider: [place], Status: Pen, Time: 11:15 AM [facility] 250 DO Work Phone: Start: 10-15-2019 Medicare Annual Wellness Visit Medicare Annual Wellness Visit [facility] Start: 2012 Fall Risk Screening Fall Risk Screen [facility] Start: 1966 DTaP,Tdap and Td Vaccines (1 - Tdap) DTaP,Tdap and Td Vaccines (1 - Tdap) [facility] Start: 1965 Adult BMI Follow Up Plan Adult BMI Follow Up Plan [facility] Patient Education Stroke (DC) Le ft-Side Stroke (DC) [facility] Work Phone: Patient referral [facility] Work Phone: Immunizations Immunization Date Immunization Notes Care Provider Fa cili 05-28-2023 Covid-19, Mrna, Lnp- s, Pf, 30 Mcg/0.3 Ml Dose, Edwin-sucrose Anel Llamas RN [facility] 05-28-2023 Covid-19, Mrna, Lnp- s, Pf,edwin-sucrose,30 Mcg/0.3ml Fall23 Anel Llamas RN [facility] 05-28-2023 Influenza Vaccine, Quadrivalent, Adjuvanted Anel Llamas RN [facility] 05-28-2023 Seasonal trivalent influenza vaccine, adjuvanted, preservative free Anel Llamas RN [facility] 04-27-2023 RSV, recombinant, protein subunit RSVpreF, adjuvant reconstituted, 0.5 mL, PF Anel Llamas RN [facility] 05-25-2022 Influenza, High-dose , Quadrivalent Anel Llamas RN [facility] 04-27-2022 Covid-19, Mrna, Lnp- s, Bivalent, Pf, 30mcg/0.3 ml Anel Llamas RN [facility] 04-27-2022 COVID-19, mRNA, LNP- S, PF, 30mcg/0.3mL Dose Anel Llamas RN [facility] 11-10-2021 Covid-19, Mrna, Lnp- s, Pf, 30 Mcg/0.3 Ml Dose, Edwin-sucrose Anel Llamas RN [facility] 11-10-2021 SARS-COV-2 (COVID-19 ) Vaccine, Unspecified Anel Llamas RN [facility] 05-19-2021 Influenza Vaccine, Quadrivalent, Adjuvanted Anel Llamas RN [facility] 05-19-2021 influenza virus vacc ine, unspecified formulation Anel Llamas RN [facility] 04-05-2021 PfizerBioNTech COVI D-19 Vacc 30 MCG/0.3ML Intramuscular Suspension Sherif Lofton Defrance Work Phone: [facility] 250 DO Work Phone: 09-29-2020 PfizerBioNTech COVI D-19 Vacc 30 MCG/0.3ML Intramuscular Suspension Sherif Rolly Defrance Work Phone: [facility] 250 DO Work Phone: 09-06-2020 PfizerBioNT[employer] COVI D-19 Vacc 30 MCG/0.3ML Intramuscular Suspension Sherif Rolly Defrance Work Phone: [facility] 250 DO Work Phone: 05-13-2020 influenza, seasonal, injectable Sherif T Defrance Work Phone: [facility] 04-16-2020 Influenza Vaccine, Quadrivalent, Adjuvanted Anel Llamas RN [facility] 04-16-2020 influenza, injectabl e, quadrivalent, preservative free Sherif T Defrance Work Phone: [facility] 04-16-2020 pneumococcal polysaccharide vaccine, 23 valent Sherif Lofton Defrance Work Phone: [facility] 09-25-2019 zoster vaccine recombinant Sherif T Defrance Work Phone: [facility] 07-22-2019 zoster vaccine recombinant Sherif T Defrance Work Phone: [facility] 07-13-2019 pneumococcal conjuga te vaccine, 13 valent Sherif T Defrance Work Phone: [facility] DO Work Phone: 05-14-2019 influenza, high dose seasonal, preservative-free Sherif T Defrance Work Phone: [facility] 250 DO Work Phone: 05-14-2019 Seasonal trivalent influenza vaccine, adjuvanted, preservative free Sherif T Defrance Work Phone: [facility] 04-13-2019 influenza, seasonal, injectable Sherif T Defrance Work Phone: [place] [address] DO Work Phone: 10-20-2018 pneumococcal conjuga te vaccine, 13 valent Sherif T Defrance Work Phone: [facility] 05-27-2018 influenza, high dose seasonal, preservative-free Anel Llamas RN [facility] 05-29-2017 influenza virus vacc ine, unspecified formulation Anel Llamas RN [facility] 05-29-2017 pneumococcal conjuga te vaccine, 13 valent Anel Llamas RN [facility] 04-13-2017 influenza virus vacc ine, unspecified formulation Sherif Lofton Defrance Work Phone: [place] [address] DO Work Phone: 09-08-2016 pneumococcal polysaccharide vaccine, 23 valent Sherif T Defrance Work Phone: [place] [address] DO Work Phone: 08-25-2016 pneumococcal polysaccharide vaccine, 23 valent Sherif T Defrance Work Phone: [place] [address] DO Work Phone: 06-14-2016 influenza, high dose seasonal, preservative-free Sherif T Defrance Work Phone: [place] [address] DO Work Phone: 05-29-2016 influenza virus vacc ine, unspecified formulation Anel Llamas RN [facility] 05-29-2016 influenza, injectabl e, madin julito canine kidney, preservative free Sherif Rolly Defrance Work Phone: [place] [address] DO Work Phone: 05-13-2016 influenza virus vacc ine, unspecified formulation Sherif Lofton Defrance Work Phone: [facility] 250 DO Work Phone: 05-13-2015 influenza virus vacc ine, unspecified formulation Sherif Lofton Defrance Work Phone: [facility] DO Work Phone: 04-27-2015 influenza virus vacc ine, unspecified formulation Anel Llamas RN [facility] 04-27-2015 influenza, seasonal, injectable Sherif Lofton Defrance Work Phone: [facility] 250 DO Work Phone: 04-26-2015 pneumococcal polysaccharide vaccine, 23 valent Sherif Lofton Defrance Work Phone: [facility] 250 DO Work Phone: 05-13-2014 influenza virus vacc ine, unspecified formulation Sherif Lofton Defrance Work Phone: [facility] 250 DO Work Phone: 05-13-2013 pneumococcal polysaccharide vaccine, 23 valent Sherif Lofton Defrance Work Phone: [facility] 250 DO Work Phone: 09-06-2009 novel influenza-H1N1 -09, preservative-free, injectable Sherif Lofton Defrance Work Phone: [facility] 250 DO Work Phone: Payers Date Payer Category Payer Medicare [employer] MEDICARE A ETNA MEDICARE PLAN (PPO) [id number] 2023-Present [phone] [address] [place] [address] [id number] 2022 Self-pay [id number] 1960 Private Health Insurance [id number] 1947 Unknown [id number] [id number] 93 1947 Unknown [id number] [id number] 93 1947 Unknown [id number] [id number] 93 1947 Unknown [id number] [id number] 56 1947 Unknown [id number] [id number] 286 1947 Unknown [id number] [id number] 286 1947 Unknown [id number] [id number] 286 1947 Unknown [id number] [id number] 286 1947 Unknown [id number] [id number] 286 1947 Unknown [id number] [id number] 286 1947 Unknown [id number] [id number] 286 Medicare [id number] Medicare Medicare [id number] Unknown [id number] Unknown Unknown [place] [id number] Unknown [id number] 31 Unknown [id number] [id number] 31 Social History Date Type Detail Facility Start: 09-23-2020 End: 09-25-2023 Occasional alcohol use Occasional alcohol use [facility] Start: 09-23-2020 End: 09-25-2023 Sex Assigned At [facility] Start: 01-31-2018 End: 09-27-2023 Tobacco smoking status NHIS Never smoked tobacco [facility] Start: 01-31-2018 Tobacco use and exposure Smokeless tobacco non-user [facility] Start: 09-20-2023 Alcohol intake Ex-drinker (finding) [facility] Has the [employer], A [employer], or Travel Desiya threatened to shut off services in your home in past 12Mo No [facility] How often to you hav e a drink containing alcohol? Never [facility] How many standard drinks containing alcohol do you have on a typical day? Patient does not drink [facility] Start: 1945 Sex Assigned At Not on file P [facility] Start: 1945 Sex Assigned At Male [facility] Medical Equipment Procedure Code Equipment Code Equipment Origin al Text Equipment Identifier Dates Endarterectomy, carotid Cardiovascular patch, animal-derived [id number] [facility] Start: 05-10-2020 Goals Date Patient Goal Desired Activity /State Personal health goal Comment on above: Formatting of this n ote might be different from the original. 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 [facility] Work Phone: 09-25-2023 Functional status Disability Sta tus Patient at [facility] Work Phone: Mental Status Date Assessment Result Facility 10-04-2023 Cognitive function Cognitive Sta tus Patient at [facility] Work Phone: Clinical Notes 12-06-2021 to 10-05-2023 [...] for administrative reasons. documented in this encounter [facility] 10-05-2023 Telephone encounter Note A user error has taken place: encounter opened in error, closed for administrative reasons. [employer] Work Phone: 10-05-2023 Miscellaneous Notes Transition of Care Additional Questions/Concerns Requiring PCP Follow-Up: may call to change BELÉN appt. This documentation is being used for Transition of Care purposes: Yes Goal: Patient will demonstrate a safe transition from facility to home Diagnosis on Discharge: CVA Impaired mobility and ADL's Vertigo History of cardiac catheterization HTN Hyperlipidemia Discharge Specialty: Neurology Name of Discharging Facility: [facility] Patient was at [facility] 09/20/23 - 09/25/23 Date of Facility Discharge: 09/25/23 - 10/04/23 Date of Interactive Contact and Name of Telephone Recorder: Spoke with Janice on 10/05/23 Medication Review Completed: Yes Medication Reconciliation Questions/Concerns: Tylenol 500 mg every 4 hours as needed Meclizine 25 mg every 8 hours as needed for dizziness Scopolamine patch every 72 hours as need for dizziness Discontinue- Rosuvastatin Follow Up Appointments with Providers: Primary: Sherif Paredes MD BEL[facility]N 10/16/23 @ 3:15 Specialty: OP therapy at [facility] Specialty: Neurology Dr Rosado - 10/17/23 @ [...] Check blood sugars at breakfast and dinner principal investigator placed day of discharge and follow instructions [...] Eri Martin RN, can be reached at [phone] and will follow for a minimum of 30 days following hospitalization. Communication with Home Health Agencies and Other Services Utilized/Needed by the Patient: Scheduled. [facility]23 Telephone encounter Note Transition of Care Additional Questions/Concerns Requiring PCP Follow-Up: may call to change BELÉN appt. This documentation is being used for Transition of Care purposes: Yes Goal: Patient will demonstrate a safe transition from facility to home Diagnosis on Discharge: CVA Impaired mobility and ADL's Vertigo History of cardiac catheterization HTN Hyperlipidemia Discharge Specialty: Neurology Name of Discharging Facility: [facility] Patient was at [facility] 09/20/23 - 09/25/23 Date of Facility Discharge: 09/25/23 - 10/04/23 Date of Interactive Contact and Name of Telephone Recorder: Spoke with Janice on 10/05/23 Medication Review Completed: Yes Medication Reconciliation Questions/Concerns: Tylenol 500 mg every 4 hours as needed Meclizine 25 mg every 8 hours as needed for dizziness Scopolamine patch every 72 hours as need for dizziness Discontinue- Rosuvastatin Follow Up Appointments with Providers: Primary: Sherif Paredes MD BELÉN 10/16/23 @ 3:15 Specialty: OP therapy at [facility] Specialty: Neurology Dr Rosado - 10/17/23 @ [...] Check blood sugars at breakfast and dinner principal investigator placed day of discharge and follow instructions [...] Eri Martin RN, can be reached at [phone] and will follow for a minimum of 30 days following hospitalization. Communication with Home Health Agencies and Other Services Utilized/Needed by the Patient: [facility] Work Phone: 10-05-2023 Telephone encounter Note Scheduled. [facility] 10-03-2023 Progress note Note Date/Time October 03, 2023 1:35pm [facility] [address] [place] [address] Hospitalist Progress Note Signed Patient: Janice Shultz MR#: [id number] : 1945 Acct:[id number] Age/Sex: 78 / M Adm Date: 4 Loc: Room: [address] [place] [address] Type: ADM IN Attending Dr: Donovan La [...] mg 09/25/23 15:43 Bisacodyl 10 Mg Supp.Rect MS 09/24/24 15:42 DAILY PRN Constipation Docusate Sodium 100 mg 09/25/23 15:43 09/30/23 09:07 Docusate 100 Mg Capsule PO 09/24/24 15:42 100 mg BID PRN Administration Constipation Docusate Sodium 283 mg 09/25/23 15:43 Docusate Enema 283 Mg/5 Ml Enema MS 09/24/24 15:42 DAILY PRN Constipation Fish Oil 1,000 mg 09/25/23 21:00 10/03/23 09:11 [place]-3/Fish Oil 1,000 Mg Capsule PO 09/24/24 20:59 [...] sugars reviewed, well-controlled 2. Hypertension, CAD hx TX/ stents, HLD?metoprolol, Fish oil, ASA. Blood pressures reviewed, well-controlled 3. BPH?tamsulosin, monitor for retention Documented By: Sarah Malhotra APRN 10/03/23 1327 Signed By: <Electronically signed by NAN Malhotra> 10/03/23 1426 <Electronically signed by Niurka Chung MD> 10/03/23 1640 [facility] Work Phone: 1(407) 433-795102-21-2024 Progress note Author Hernan Minaya [facility] October 03, 2023 2:33pm Note Date/Time October 03, 2023 2:33pm [facility] [address] [place] [address] Physiatry(Rehab) Progress Note Signed Patient: Janice Shultz MR#: [id number] : 1945 Acct:[id number] Age/Sex: 78 / M Adm Date: 4 Loc: Room: [address] [place] [address] Type: ADM IN Attending Dr: Donovan La MD Copies to: ~ Date of Service: 10/03/2023 Subjective Subjective Narrative: Mr. Shultz is a 78 year old male with PMH previous CVA in 2017, HTN, CAD and CABG who presents [place] [facility] [place] following acute hospitalization for left PICA stroke with hemorrhagic transformation. The patient initially presents to [facility] for evaluation for 5 days vertigo with N/V, blurred vision, and gait instability. He reportedly had a fall1 day prior to admission due to vertigo. Non contrast CTH was done and demonstrated evidence of hemorrhage in the PICA territory. Patient was transferred to [facility]. MRI was done andconfirmed PICA ischemic stroke [...] mg 09/25/23 15:43 Bisacodyl 10 Mg Supp.Rect MS 09/24/24 15:42 DAILY PRN Constipation Docusate Sodium 100 mg 09/25/23 15:43 09/30/23 09:07 Docusate 100 Mg Capsule PO 09/24/24 15:42 100 mg BID PRN Administration Constipation Docusate Sodium 283 mg 09/25/23 15:43 Docusate Enema 283 Mg/5 Ml Enema MS 09/24/24 15:42 DAILY PRN Constipation Fish Oil 1,000 mg 09/25/23 21:00 10/03/23 09:11 Macomb-3/Fish Oil 1,000 Mg Capsule PO 09/24/24 20:59 [...] HTN, CAD s/p CABG who presents to [facility] IRF for rehab following 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 He has continued impaired mobility and impaired independence with ADLsand IADLs requiring PT/OT/SHELL TRIM TOOL SETTER 5-7 days/week 3 hours/day to maximize safety [...] equipment to enhance the patient's a functional protestant Encourage deep breathing exercises and incentive spirometry [...] greater than 25 minutes for services, including ctva-lb-ipmf encounter with the patient, discussion of the case, plan of care, and exam; and bsyboax-bq-qsbs activities, such as reviewing pertinent principal consultant documentation, recent therapy notes, laboratory and radiology studies, and discussion of case with care team including physician, nursing, comp field case manager, and therapists. More than 50 % of time was spent on patient/family counseling or coordination ofcare. Documented By: Henran Minaya MD 10/03/23 1429 Signed By: <Electronically signed by Hernan Minaya MD> 10/03/23 1437 [facility] Work Phone: 1(686) 799-864402-20-2024 Progress note Author Donovan La [facility] October 02, 2023 1:17pm Note Date/Time October 02, 2023 11:03am [facility] [address] [place] [address] Physiatry(Rehab) Progress Note Signed Patient: Janice Shultz MR#: [id number] : 1945 Acct:[id number] Age/Sex: 78 / M Adm Date: 4 Loc: Room: [address] [place] [address] Type: ADM IN Attending Dr: Donovan La MD Copies to: ~ Date of Service: 10/02/2023 Subjective Subjective Narrative: Mr. Shultz is a 78 year old male with PMH previous CVA in 2017, HTN, CAD and CABG who presents [place] [facility] [place] following acute hospitalization for left PICA stroke with hemorrhagic transformation. The patient initially presents to [facility] for evaluation for 5 days vertigo with N/V, blurred vision, and gait instability. He reportedly had a fall1 day prior to admission due to vertigo. Non contrast CTH was done and demonstrated evidence of hemorrhage in the PICA territory. Patient was transferred to [facility]. 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 He has continued impaired mobility and impaired independence with ADLsand IADLs requiring PT/OT/SHELL TRIM TOOL SETTER 5-7 days/week 3 hours/day to maximize safety [...] equipment to enhance the patient's a functional protestant Encourage deep breathing exercises and incentive spirometry [...] greater than 15 minutes for services, including siyo-we-pktg encounter with the patient, discussion of the case, plan of care, and exam; and umwirqa-np-vzzc activities, such as reviewing pertinent principal consultant documentation, recent therapy notes, laboratory and radiology studies, and discussion of case with care team including physician, nursing, comp field case manager, and therapists. More than 50 % of time was spent on patient/family counseling or coordination ofcare. <Statement entered by Donovan La MD - 10/02/23 13:17> I completed a substantive portion of this encounter, the medical decision makingportion of this note in its entirety, including Allied health note review, nursing note review, principal consultant note review, discussion with nursing and case management, and more than 50% of my time was spent on counseling and coordination of care, time spent 27 minutes Patient was personally seen by me, Dr. La, on the day of encounter, reviewed the history and the relevant portions of the chart, including current orders, allied health and principal consultant notes, labs/imaging and performed mims elements of exam and I formulated the plan of care and facilitated the medical decision making. Documented By: Tracy Fernandez APRN 10/02/23 1 056 Signed By: <Electronically signed by NAN Fernandez> 10/02/23 1102 <Electronically signed by Donovan La MD> 10/02/23 1317 [facility] Work Phone: 1(754) 838-646402-19-2024 Progress note Author Donovan La [facility] October 01, 2023 1:32pm Note Date/Time October 01, 2023 1:32pm [facility] [address] [place] [address] Physiatry(Rehab) Progress Note Signed Patient: Janice Shultz MR#: [id number] : 1945 Acct:[id number] Age/Sex: 78 / M Adm Date: 4 Loc: Room: [address] [place] [address] Type: ADM IN Attending Dr: Donovan La MD Copies to: ~ Date of Service: 10/01/2023 Subjective Subjective Narrative: Mr. Shultz is a 78 year old male with PMH previous CVA in 2017, HTN, CAD and CABG who presents to [facility] [place] following acute hospitalization for left PICA stroke with hemorrhagic transformation. The patient initially presents to [facility] for evaluation for 5 days vertigo with N/V, blurred vision, and gait instability. He reportedly had a fall1 day prior to admission due to vertigo. Non contrast CTH was done and demonstrated evidence of hemorrhage in the PICA territory. Patient was transferred to [facility]. 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 He has continued impaired mobility and impaired independence with ADLsand IADLs requiring PT/OT/SHELL TRIM TOOL SETTER 5-7 days/week 3 hours/day to maximize safety [...] equipment to enhance the patient's a functional protestant Encourage deep breathing exercises and incentive spirometry [...] greater than 15 minutes for services, including bixv-ot-nfyg encounter with the patient, discussion of the case, plan of care, and exam; and djydwso-jl-czey activities, such as reviewing pertinent principal consultant documentation, recent therapy notes, laboratory and radiology studies, and discussion of case with care team including physician, nursing, comp field case manager, and therapists. More than 50 % of time was spent on patient/family counseling or coordination ofcare. Documented By: Donovan La MD 1327 Signed By: <Electronically signed by Donovan La MD> 10/01/23 1332 [facility] Work Phone: 1(346) 257-195202-19-2024 Progress note Author Donovan La [facility] October 01, 2023 9:30am Note Date/Time September 28, 2023 12:45pm [facility] [address] [place] [address] Physiatry(Rehab) Progress Note Signed Patient: Janice Shultz MR#: [id number] : 1945 Acct:[id number] Age/Sex: 78 / M Adm Date: 4 Loc: Room: [address] [place] [address] Type: ADM IN Attending Dr: Donovan La MD Copies to: ~ Date of Service: 09/28/2023 Subjective Subjective Narrative: Mr. Shultz is a 78 year old male with PMH previous CVA in 2017, HTN, CAD and CABG who presents to [facility] [place] following acute hospitalization for left PICA stroke with hemorrhagic transformation. The patient initially presents to [facility] for evaluation for 5 days vertigo with N/V, blurred vision, and gait instability. He reportedly had a fall1 day prior to admission due to vertigo. Non contrast CTH was done and demonstrated evidence of hemorrhage in the PICA territory. Patient was transferred to [facility]. 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 He has continued impaired mobility and impaired independence with ADLsand IADLs requiring PT/OT/SHELL TRIM TOOL SETTER 5-7 days/week 3 hours/day to maximize safety [...] equipment to enhance the patient's a functional protestant Encourage deep breathing exercises and incentive spirometry [...] greater than 15 minutes for services, including fppa-lr-nlcf encounter with the patient, discussion of the case, plan of care, and exam; and iullbbn-wk-ezdv activities, such as reviewing pertinent principal consultant documentation, recent therapy notes, laboratory and radiology studies, and discussion of case with care team including physician, nursing, comp field case manager, and therapists. More than 50 % of time was spent on patient/family counseling or coordination ofcare. <Statement entered by Donovan La MD - 10/01/23 09:30> This documentation has been reviewed and approved. Documented By: Tracy Fernandez APRN 09/28/23 1 241 Signed By: <Electronically signed by NAN Fernandez> 09/28/23 1250 <Electronically signed by Donovan La MD> 10/01/23 0930 [facility] Work Phone: [phone]) 566-721602-19-2024 Progress note Author Donovan La [facility] October 01, 2023 9:30am Note Date/Time September 29, 2023 11:26am [facility] [address] [place] [address] Physiatry(Rehab) Progress Note Signed Patient: Janice Shultz MR#: [id number] : 1945 Acct:[id number] Age/Sex: 78 / M Adm Date: 4 Loc: Room: [address] [place] [address] Type: ADM IN Attending Dr: Donovan La MD Copies to: ~ Date of Service: 09/29/2023 Subjective Subjective Narrative: Mr. Shultz is a 78 year old male with PMH previous CVA in 2017, HTN, CAD and CABG who presents to [facility] [place] following acute hospitalization for left PICA stroke with hemorrhagic transformation. The patient initially presents to [facility] for evaluation for 5 days vertigo with N/V, blurred vision, and gait instability. He reportedly had a fall1 day prior to admission due to vertigo. Non contrast CTH was done and demonstrated evidence of hemorrhage in the PICA territory. Patient was transferred to [facility]. MRI was done andconfirmed PICA ischemic stroke [...] like to transition patient's neurological care to [place]. 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 He has continued impaired mobility and impaired independence with ADLsand IADLs requiring PT/OT/SHELL TRIM TOOL SETTER 5-7 days/week 3 hours/day to maximize safety [...] equipment to enhance the patient's a functional protestant Encourage deep breathing exercises and incentive spirometry [...] greater than 15 minutes for services, including bmue-zt-iyhv encounter with the patient, discussion of the case, plan of care, and exam; and xqhjkaf-ww-djbg activities, such as reviewing pertinent principal consultant documentation, recent therapy notes, laboratory and radiology studies, and discussion of case with care team including physician, nursing, comp field case manager, and therapists. More than 50 % of time was spent on patient/family counseling or coordination ofcare. <Statement entered by Donovan La MD - 10/01/23 09:29> This documentation has been reviewed and approved. Documented By: Tracy Fernandez APRN 09/29/23 1 119 Signed By: <Electronically signed by NAN Fernandez> 09/29/23 1126 <Electronically signed by Donovan La MD> 10/01/23 0930 [facility] Work Phone: [phone]) [phone] Consult note Author Adriana Ling [facility] September 27, 2023 8:06pm Note Date/Time September 27, 2023 5:55pm [facility] [address] [place] [address] Hospitalist Consult Note Signed Patient: Janice Shultz MR#: [id number] : 1945 Acct:[id number] Age/Sex: 78 / M Adm Date: 4 Loc: Room: [address] [place] [address] Type: ADM IN Attending Dr: Donovan La MD Copies to: MD Sherif Mercado MD Lynn A Stackhouse-Roby, NAN Ling MD~ HPI DATE OF CONSULTATION: 09/26/23 REQUESTING PROVIDER: Donovan La Consult Narrative Reason for Consult: Diabetes HPI: 78-year-old male past medical history significant for CAD history TX and stents,hypertension, hyperlipidemia, diabetes, CVA, BPH. Patient initially presented to [facility] with visual disturbance, vertigo nausea and vomiting, gait instability with fall 1 day prior to presentation. Workup demonstrated evidenceof hemorrhage and peaked territory on noncontrast CT. Patient was urgently transferred to [facility] for further management. MRI of the brain there confirmed Picot ischemic stroke with hemorrhagic conversion. The patient was seen by neurosurgical services while there with no interventions recommended. CTA did show evidence of occluded left V1 and moderate stenosis of right M1. Hewas seen by therapy services and ultimately transferred to the inpatient rehab unit here at [facility] September 26. Hospitalist team is now [...] negative unless noted below or in HPI [facility] Medical History (Updated 09/27/23 @ 18:01 by [...] mg 09/25/23 15:43 Bisacodyl 10 Mg Supp.Rect MS 09/24/24 15:42 DAILY PRN Constipation Docusate Sodium 100 mg 09/25/23 15:43 Docusate 100 Mg Capsule PO 09/24/24 15:42 BID PRN Constipation Docusate Sodium 283 mg 09/25/23 15:43 Docusate Enema 283 Mg/5 Ml Enema MS 09/24/24 15:42 DAILY PRN Constipation Fish Oil 1,000 mg 09/25/23 21:00 09/26/23 08:42 Macomb-3/Fish Oil 1,000 Mg Capsule PO 09/24/24 20:59 [...] Tablet PO 09/24/24 20:59 Not Given BID [facility] Scopolamine 1 each 09/28/23 09:00 Scopolamine 1 Mg/3 Days Patch TRANSDERML 09/27/24 08:59 Q72HR [facility] Sennosides 2 tab 09/26/23 12:00 Sennosides 8.6 Mg Tablet PO 09/25/24 11:59 DAILY@12 PRN If no BM in 2 days Sodium Chloride 0 ml 09/25/23 15:43 Sodium Chloride 0.9 % 10 Ml Syringe IV-PUSH 09/24/24 15:42 PRN PRN Flush Tamsulosin HCl 0.4 mg 09/25/23 22:00 09/25/23 21:13 Tamsulosin 0.4 Mg Cap.Er.24h PO 09/24/24 21:59 0.4 mg QHS [facility] Administration Exam Physical Exam Vital Signs: Temp [...] % (Auto) 68.0, Lymph % (Auto) 19.4, [place] % (Auto) 9.4, Eos % (Auto) 2.1, Baso % (Auto) 1.1, Nucleat RBC Rel Count 0.0, Neut # (Auto) 6.2, Lymph # (Auto) 1.8, [place] # (Auto) 0.9 H, Eos # (Auto) [...] conditions 1. Diabetes?metformin 2. Hypertension, CAD hx TX/ stents, HLD?metoprolol. BPs reviewed and controlled. Fish oil, ASA 3. BPH?tamsulosin, monitor for retention Documented By: Jessie Andrea APRN 09/13 12/04 1800 Signed By: <Electronically signed by NAN Andrea> 09/27/231804 <Electronically signed by Adriana Ling MD> 09/27/232005 [facility] Work Phone: 1(258) 971-873802-15-2024 Progress note Author Donovan La [facility] September 27, 2023 12:57pm Note Date/Time September 27, 2023 10:58am [facility] [address] [place] [address] Physiatry(Rehab) Progress Note Signed Patient: Janice Shultz MR#: [id number] : 1945 Acct:[id number] Age/Sex: 78 / M Adm Date: 4 Loc: Room: 0H0152-2 Type: ADM IN Attending Dr: Donovan La MD Copies to: ~ <Toni Orozco MD, RES - Last Filed: 09/27/23 10:58> Date of Service: 09/27/2023 Subjective <Toni Orozco MD, RES - Last Filed: 09/27/23 10:58> Subjective Narrative: Mr. Shultz is a 78 year old male with PMH previous CVA in 2017, HTN, CAD and CABG who presents to [facility] [place] following acute hospitalization for left PICA stroke with hemorrhagic transformation. The patient initially presents to [facility] for evaluation for 5 days vertigo with N/V, blurred vision, and gait instability. He reportedly had a fall1 day prior to admission due to vertigo. Non contrast CTH was done and demonstrated evidence of hemorrhage in the PICA territory. Patient was transferred to [facility]. 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 He has continued impaired mobility and impaired independence with ADLsand IADLs requiring PT/OT/SHELL TRIM TOOL SETTER 5-7 days/week 3 hours/day to maximize safety [...] equipment to enhance the patient's a functional protestant Encourage deep breathing exercises and incentive spirometry [...] Allied health note review, nursing note review, principal consultant note review, discussion with nursing and case management, and more than 50% of my time was spent on counseling and coordination of care, time spent 70 minutes Patient was personally seen by me, Dr. 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 He has continued impaired mobility and impaired independence with ADLsand IADLs requiring PT/OT/SHELL TRIM TOOL SETTER 5-7 days/week 3 hours/day to maximize safety [...] equipment to enhance the patient's a functional protestant Encourage deep breathing exercises and incentive spirometry [...] Allied health note review, nursing note review, principal consultant note review, discussion with nursing and case management, and more than 50% of my time was spent on counseling and coordination of care, time spent 30 minutes Patient was personally seen by me, Dr. La, on the day of encounter, reviewed the history and the relevant portions of the chart, including current orders, allied health and principal consultant notes, labs/imaging and performed mims elements [...] <Electronically signed by Donovan La MD> 09/27/[address] [place] [address] Work Phone: 1(638) 418-888502-14-2024 History of Present illness Narrative* Anel Llamas RN - 09/26/2023 3:19 PM EST error documented [facility] [id number] History and physical note Author Donovan La [facility] September 26, 2023 12:12pm Note Date/Time September 26, 2023 10:24am [facility] [address] [place] [address] Physiatry (Rehab) H&P Signed Patient: Janice Shultz MR#: [id number] : 1945 Acct:[id number] Age/Sex: 78 / M Adm Date: 4 Loc: 5T Room: 4I4182-2 Type: ADM IN Attending Dr: Donovan La MD Copies to: MD Sherif Mercado MD~ Date of Service: 09/26/2023 HPI The patient was seen and examined on: 09/26/23 History of Present Illness: Mr. Shultz is a 78 year old male with PMH previous CVA in 2017, HTN, CAD and CABG who presents to [facility] [place] following acute hospitalization for left PICA stroke with hemorrhagic transformation. The patient initially presents to [facility] for evaluation for 5 days vertigo with N/V, blurred vision, and gait instability. He reportedly had a fall1 day prior to admission due to vertigo. Non contrast CTH was done and demonstrated evidence of hemorrhage in the PICA territory. Patient was transferred to [facility]. MRI was done andconfirmed PICA ischemic stroke [...] or speech abnormalities. Tolerating therapy thus far. [facility] Medical History (Updated 09/26/23 @ 12:06 by [...] 81 Mg Tablet.Dr) 81 mg PO DAILY [facility] Stop: 09/25/24 08:59 Last Admin: 09/26/23 08:42 Dose: 81 mg Atorvastatin Calcium (Atorvastatin 80 Mg Tablet) 80 mg PO HS [facility] Stop: 09/24/24 21:59 Last Admin: 09/25/23 21:13 Dose: 80 mg Bisacodyl (Bisacodyl 10 Mg Supp.Rect) 10 mg MS DAILY PRN PRN Reason: Constipation Stop: 09/24/24 15:42 Docusate Sodium (Docusate 100 Mg Capsule) 100 mg PO BID PRN PRN Reason: Constipation Stop: 09/24/24 15:42 Docusate Sodium (Docusate Enema 283 Mg/5 Ml Enema) 283 mg MS DAILY PRN PRN Reason: Constipation Stop: 09/24/24 15:42 Fish Oil ([place]-3/Fish Oil 1,000 Mg Capsule) 1,000 mg PO BID [facility] Stop: 09/24/24 20:59 Last Admin: 09/26/23 08:42 Dose: 1,000 mg Heparin Sodium (Porcine) (Heparin 5,000 Unit/Ml Vial) 5,000 unit SUBCUT Q8HR [facility] Stop: 09/24/24 21:59 Last Admin: 09/26/23 05:44 Dose: 5,000 unit Lactulose (Lactulose 20 Gm/30 Ml Udc) 30 gm PO DAILY PRN PRN Reason: Constipation Stop: 09/24/24 15:42 Melatonin (Melatonin 5 Mg Tablet) 5 mg PO [facility] Stop: 09/24/24 21:59 Last Admin: 09/25/23 21:13 Dose: 5 mg Metformin HCl (Metformin 500 Mg Tablet) 500 mg PO DAILY.WITH.SUPPER [facility] Stop: 09/25/24 16:59 Metoprolol Tartrate (Metoprolol Tartrate 25 Mg Tablet) 25 mg PO BID [facility] Stop: 09/24/24 20:59 Last Admin: 09/26/23 08:42 Dose: Not Given Scopolamine (Scopolamine 1 Mg/3 Days Patch) 1 each TRANSDERML Q72HR [facility] Stop: 09/27/24 08:59 Sennosides (Sennosides 8.6 Mg [...] % (Auto) 68.0 Lymph % (Auto) 19.4 [place] % (Auto) 9.4 Eos % (Auto) 2.1 Baso % (Auto) 1.1 Nucleat RBC Rel Count 0.0 Neut # (Auto) 6.2 Lymph # (Auto) 1.8 [place] # (Auto) 0.9 H Eos # (Auto) [...] 24 hour daily monitoring and intervention from [employer] Attendant as well as other consulting physicians including internal medicine as well as 24 hour daily color buffer nursing - for medical safe / optimal [...] HTN, CAD s/p CABG who presents to [facility] for rehab following 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 He has continued impaired mobility and impaired independence with ADLsand IADLs requiring PT/OT/SHELL TRIM TOOL SETTER 5-7 days/week 3 hours/day to maximize safety [...] equipment to enhance the patient's a functional protestant Encourage deep breathing exercises and incentive spirometry [...] Allied health note review, nursing note review, principal consultant note review, discussion with nursing and case management, and more than 50% of my time was spent on counseling and coordination of care, time spent 70 minutes Patient was personally seen by me, Dr. La, on the day of encounter, reviewed the history and the relevant portions of the chart, including current orders, allied health and principal consultant notes, labs/imaging and performed mims elements of exam and I formulated the plan of care and facilitated the medical decision making. Documented By: Donovan La MD [id number] Signed By: <Electronically signed by Donovan La MD> 09/26/23 1212 [facility] Work Phone: 1(802) 804-781605-02-2023 Evaluation note* Encounter Date Diagnosis Assessment Notes [...] the meantime with any issues or concerns. [employer] Other 09-12-2022 NotePROCEDURE: XR HIP LT 2 [...] Electronically authenticated by: KASH AZAR Date: 2022-04-24 18:45[facility]04-26-2022 Evaluation note* Encounter Date Diagnosis Assessment [...] in the meantime with any issues present. [employer] Other Evaluation note* Diagnosis Cerebrovascular accident (CVA) due to embolism of precerebral artery (CMS-HCC)- Primary Other cerebrovascular vasospasm and vasoconstriction [facility] Diagnosis Onset Date Resolution Status CAD (coronary artery disease) acute CVA (cerebral vascular accident) acute Hyperlipidemia acute Hypertension acute Impaired mobility and activities of daily living acute Vertigo acute History of cardiac catheterization resolved [facility] Work Phone: History general Narrative - Reported* Type Description Date Medical History CAD Medical History CVA x2 Medical History HTN Medical History h/o [place] Surgical History hernia repair Surgical History back Surgical History right wrist surgery Surgical History RIGHT CEA WITH PATCH 05/10/20 Hospitalization History stroke Hospitalization History heart matti. Hospitalization History back matti. [facility] Other InstructionsNot on filedocumented in this encounter [facility] Mitral[facility] SystemInstructionsNot on filedocumented in this encounter [facility] Mitralign SystemInstructionsNot on filedocumented in this encounter [facility] Summary Purpose Family History No Family [...] Procedures Event Monitor (In Office) Prasanna Thornton, NAN-ELECTRICIAN HELPER [employer] [address] [place] [address] Referral ID Status Reason Start Date Expiration Date V isits Requested Visits Authorized [id number] Pending Review 09/26/2023 09/25/2024 1 1 Chief [...] section and content) DATE CREATED AUTHOR 01/23/2018 [facility] DATE CREATED AUTHOR AUTHOR'S ORGANIZ ATION 06/06/2018 [facility] DATE CREATED AUTHOR AUTHOR'S ORGANIZ ATION 05/20/2021 [facility] DATE CREATED AUTHOR AUTHOR'S ORGANIZ ATION 05/09/2022 [facility] DATE CREATED AUTHOR AUTHOR'S ORGANIZ ATION 05/06/2023 [facility] DATE CREATED AUTHOR AUTHOR'S ORGANIZ ATION 05/06/2023 [facility] DATE CREATED AUTHOR AUTHOR'S ORGANIZ ATION 09/26/2023 [facility] DATE CREATED AUTHOR AUTHOR'S ORGANIZ ATION 09/28/2023 [facility] DATE CREATED AUTHOR AUTHOR'S ORGANIZ ATION 10/14/2023 [facility] REASON FOR VISIT (unrecogniz ed section and content) Reason Onset Date Comments Transition Of Care 10/05/2023 Care Teams (unrecognized sec tion and content) Maintenance Technician Relationship Specialty Start Date End Date Sherif Paredes MD [address] [place] [address] PCP - General Family Medicine [...] Start: 2023 End: October 04, 2023 Adriana Lnig MD Other Provider Active Start: September 25, [...] St art: September 26, 2023 Rebekah Rodríguez CABINET ABRASIVE SANDBLASTER Other Provider Active Star t: September 26, [...] rt: September 26, 2023 Carmen Lipscomb , CABINET ABRASIVE SANDBLASTER Other Provider Active Start : September 26, 2023 Fouzia Leavitt , CABINET ABRASIVE SANDBLASTER Other Provider Active St art: September 26, [...] Other Provider Active Start: Sep Kell Dyer [employer] Other Provider Active St art: October 03, [...] Provider Active Start: Sep Kell Dyer , [employer] Other Provider Active St art: October 03, [...] Provider Active Star t: October 03, 2023 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 [employer] [facility]. provides no warranty or guarantee of the accuracy or completeness of information in this document.
[2023-10-17 18:55] LABS: Basophils Percent Auto 0.4 % (0.2-2.0); Eosinophils Absolute Auto 0.1 10^3/uL (0.0-0.7); Eosinophils Percent Auto 1.2 % (0.9-7.0); Hematocrit 48.9 % (42.0-54.0); Hemoglobin 15.6 g/dL (14.0-18.0); Immature Granulocytes Abs Auto 0.02 10^3/uL (0.00-0.03); Immature Granulocytes Pct Auto 0.2 % (0.0-0.5); Lymphocytes Percent Auto 12.5 % (20.5-60.0); Mean Corpuscular HGB Conc 31.9 g/dL (29.9-35.2); Mean Corpuscular Hemoglobin 28.2 pg (25.9-34.0); Mean Corpuscular Volume 88.4 fL (80.0-94.0); Mean Platelet Volume 9.6 fL (9.5-13.5); Monocytes Absolute Auto 0.7 10^3/uL (0.3-0.8); Monocytes Percent Auto 8.2 % (1.7-12.0); Neutrophils Absolute Auto 6.4 10^3/uL (1.4-6.5); Neutrophils Percent Auto 77.5 % (43.0-75.0); Platelet Count 230 10^3/uL (150-450); Red Blood Count 5.53 10^6/uL (4.70-6.10); Red Cell Distribution Width 12.8 % (11.0-15.0); White Blood Count 8.3 10^3/uL (4.0-11.0)
[2023-10-17 19:10] LABS: Alanine Aminotransferase 26 U/L (16-63); Albumin Globulin Ratio 0.8; Albumin Level 3.8 g/dL (3.4-5.0); Alkaline Phosphatase 56 U/L (46-116); Anion Gap 7.9; Aspartate Amino Transferase 19 U/L (15-37); BUN Creatinine Ratio 15.8; Bilirubin Total 0.6 mg/dL (0.2-1.0); Calcium 9.3 mg/dL (8.5-10.1); Carbon Dioxide 30.2 mmol/L (21.0-32.0); Chloride 102 mmol/L (98-107); Estimated GFR (African America >60 (>=60); Estimated GFR (Non-African Ame >60 (>=60); Globulin 4.5 g/dL; Glucose 112 mg/dL (74-106); Potassium 4.1 mmol/L (3.5-5.1); Sodium 136 mmol/L (136-145); Total Protein 8.3 g/dL (6.4-8.2)
[2023-10-17 19:17] LABS: Troponin I High Sensitivity 6.3 pg/mL (4.0-76.1)
[2023-10-17] MEDS: ONDANSETRON PF 4 MG/2 ML VIAL IV (19:24)
[2023-10-17] MEDS: 0.9 % SODIUM CHLORIDE 1,000 ML 999 ML IV (19:24)
--- NOTE | 2023-10-17 19:32 | CT_ITS ---
The [address] [address] Patient Name: JANICE SHULTZ MRN: [id number] date: 1945 Sex: M Assigned Patient Location: ER Current Patient Location: ER Accession/Order Number: [id number] Exam Date: 10/17/2023 19:35 Report Date: 10/17/2023 19:54 At the request of: ALEJANDRA LAWSON Procedure: CT head/brain wo con EXAM: CT scan of the head without contrast. Dose reduction technique used: Automated exposure control and/or adjustment of the mA and/or kV according to patient size and/or use of iterative reconstruction technique. REASON FOR EXAM: dizziness COMPARISON: CT scan dated 09/19/2023 FINDINGS: No intracranial hemorrhage, mass effect, midline shift, fractures or evidence of acute ischemic infarct. No hydrocephalus. 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 Moderate-sized region of left cerebellar infarct and encephalomalacia, prior hemorrhage in this region has resolved. Moderate generalized cerebral and cerebellar volume loss. Mild small vessel gliosis. Paranasal sinuses and mastoid air cells are clear. Remainder unremarkable. CT/CT head/brain wo con IMPRESSION: 1. No acute intracranial abnormalities. 2. Left cerebellar infarct and/or encephalomalacia with resolution of the prior hemorrhage in this region. 3. 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 Electronically authenticated by: KATALINA CARMEN Date: 10/17/2023 19:54
--- NOTE | 2023-10-17 19:33 | ED.DIZZY1 ---
HPI - Dizziness General Chief Complaint: Dizziness Stated Complaint: Dizziness Time Seen by Provider: 10/17/23 18:38 Source: patient Mode of arrival: ambulance History of Present Illness HPI Narrative: seen here 10/05 for dizziness and found to have cerebral hemorrhage. Admitted and observed at [facility] for 10 days and then transferred to [facility] for rehab. Has been home about 2 weeks. Today felt well this AM. Came to the hospital this AM for community lipid testing. He decided before coming in that he would take double the dose of his BP medication so he could have good BP results. He also did not eat the day before thinking this would improve his cholesterol numbers. He became dizzy and eventually was brought to the ER to be checked. [place] well after arrival here and was examined and discharged home. Admits maybe a hour after he was home dizziness recurred but was not too bad . Dizziness occurs when he is upright . Asymptomatic when supine. He was more dizzy tonight and slid himself down to the floor. called 911. No LOC. No chest pain or dyspnea. No extremity numbness or weakness. MD elicited complaint: Reports dizziness Related Data Home Medications Medication Instructions Recorded Confirmed aspirin 325 mg tablet 325 mg PO DAILY 09/19/23 09/19/23 metoprolol tartrate 25 mg tablet 12.5 mg PO BID 09/19/23 09/19/23 nitroglycerin 0.4 mg sublingual 0.4 mg sublingual Q5M PRN chest 09/19/23 09/19/23 tablet pain simvastatin 40 mg tablet 40 mg PO DAILY 09/19/23 09/19/23 Allergies Allergy/AdvReac Type Severity Reaction Status Date / Time No Known Drug Allergies Allergy Verified 09/19/23 16:45 Review of Systems ROS Status of ROS 10 or more systems reviewed and unremarkable except as noted in history and below [facility] PFS Social History Smoking status: Never smoker Exam Constitutional Vital Signs, click to edit/add: Last Vital Signs Temp 97.9 F 10/17/23 18:36 Pulse 78 10/17/23 20:21 Resp 16 10/17/23 18:36 BP 180/93 H 10/17/23 20:21 Pulse Ox 97 10/17/23 18:36 O2 Del Method Room Air 10/17/23 18:36 Common normals: no apparent distress, average body habitus, oriented x3, no limitations, healthy appearing and alert HENMT Common normals: normocephalic and head/scalp atraumatic Eye Common normals: EOMs intact bilaterally and conjunctivae normal Respiratory Common normals: normal respiratory effort, no retractions, no use of accessory muscles and clear to auscultation bilaterally Cardio Common normals: regular rate, regular rhythm, S1 normal heart sound and S2 normal heart sound GI Common normals: Normal to inspection, nondistended, normoactive bowel sounds present, soft to palpation and non-tender Extremity Common normals: normal to inspection and full ROM Neuro Common normals: oriented x3, CN's II-XII intact bilaterally, moves all extremities and no focal motor deficits Psych Appearance: grossly normal Course Vital Signs Vital signs: Vital Signs Temperature 97.9 F 10/17/23 18:36 Pulse Rate 78 10/17/23 18:36 Respiratory Rate 16 10/17/23 18:36 Blood Pressure 173/87 H 10/17/23 18:36 Pulse Oximetry 97 10/17/23 18:36 Oxygen Delivery Method Room Air 10/17/23 18:36 Temperature 97.9 F 10/17/23 18:36 Pulse Rate 78 10/17/23 20:21 Respiratory Rate 16 10/17/23 18:36 Blood Pressure 180/93 H 10/17/23 20:21 Pulse Oximetry 97 10/17/23 18:36 Oxygen Delivery Method Room Air 10/17/23 18:36 MDM - Dizziness MDM Narrative Medical decision making narrative: dizzy episode this AM. seen in ER and discharged home as it was felt his episode was related to taking double dose of metroprolol and decreased intake of fluid the day before. [place] better after ER eval and discharged. About an hour after he arrived home dizziness returned when he was upright. Worse tonight and he again had to slide down the wall to the floor because of the dizziness. found to have orthostatic hypotension. Hydrated with 1L NS and afterwards he remained orthostatic. He was seen here 10/05 for dizziness and blurred vision. At that time was found to have cerebral hemorrhage and was transferred to [facility]. No intervention as the bleeding stop spontaneously. I did repeat CT brain tonight and there are no acute findings. Discussed with the hospitalist and patient accepted for admission. Hospitalist also requesting UA Lab Data Labs: Lab Results 10/17/23 Range/Units 18:50 WBC 8.3 (4.0-11.0) 10^3/uL RBC 5.53 (4.70-6.10) 10^6/uL Hgb 15.6 (14.0-18.0) g/dL Hct 48.9 (42.0-54.0) % MCV 88.4 (80.0-94.0) fL MCH 28.2 (25.9-34.0) pg MCHC 31.9 (29.9-35.2) g/dL RDW 12.8 (11.0-15.0) % Plt Count 230 (150-450) 10^3/uL MPV 9.6 (9.5-13.5) fL Neut % (Auto) 77.5 H (43.0-75.0) % Lymph % (Auto) 12.5 L (20.5-60.0) % [place] % (Auto) 8.2 (1.7-12.0) % Eos % (Auto) 1.2 (0.9-7.0) % Baso % (Auto) 0.4 (0.2-2.0) % Neut # (Auto) 6.4 (1.4-6.5) 10^3/uL Lymph # (Auto) 1.0 L (1.2-3.8) 10^3/uL [place] # (Auto) 0.7 (0.3-0.8) 10^3/uL Eos # (Auto) 0.1 (0.0-0.7) 10^3/uL Baso # (Auto) 0.0 (0.0-0.1) 10^3/uL Abs Immat Gran (auto) 0.02 (0.00-0.03) 10^3/uL Imm/Tot Granulo (auto) 0.2 (0.0-0.5) % Sodium 136 (136-145) mmol/L Potassium 4.1 (3.5-5.1) mmol/L Chloride 102 (98-107) mmol/L Carbon Dioxide 30.2 (21.0-32.0) mmol/L Anion Gap 7.9 BUN 18.0 (7.0-18.0) mg/dL Creatinine 1.14 (0.70-1.30) mg/dL Est GFR ( Amer) >60 (>=60) Est GFR (Non-Af Amer) >60 (>=60) BUN/Creatinine Ratio 15.8 Glucose 112 H (74-106) mg/dL Calcium 9.3 (8.5-10.1) mg/dL Magnesium 2.0 (1.8-2.4) mg/dL Total Bilirubin 0.6 (0.2-1.0) mg/dL AST 19 (15-37) U/L ALT 26 (16-63) U/L Alkaline Phosphatase 56 (46-116) U/L Troponin I High Sens 6.3 (4.0-76.1) pg/mL NT-Pro-B Natriuret Pep 226.0 (<=1800.0) pg/mL Total Protein 8.3 H (6.4-8.2) g/dL Albumin 3.8 (3.4-5.0) g/dL Globulin 4.5 g/dL Albumin/Globulin Ratio 0.8 Discharge Plan Discharge Chief Complaint: Dizziness Clinical Impression: Dizziness, Orthostatic hypotension Patient Disposition: Admitted as Observation
[2023-10-17] MEDS: 0.9 % SODIUM CHLORIDE 1,000 ML 125 ML IV (21:30)
[2023-10-17 21:35] LABS: Bilirubin Urine NEGATIVE (NEGATIVE); Blood Urine NEGATIVE (NEGATIVE); Clarity Urine CLEAR (CLEAR); Color Urine YELLOW (YELLOW); Glucose Urine UA NEGATIVE (NEGATIVE); Ketones Urine NEGATIVE (NEGATIVE); Leukocyte Esterase Urine NEGATIVE (NEGATIVE); Nitrite Urine NEGATIVE (NEGATIVE); Protein Urine NEGATIVE (NEG/TRACE); Urine Microscopic Indicated NO; Urobilinogen Urine 0.2 EU/dL (0.2-1.0)
--- OUTSIDE RECORDS SUMMARY | 2023-10-17 22:23 | XMS_ITS | CCD ---
Author Name Unknown Address [address] [place] [address] Organization [facility] Care Team Providers Care Sponge Maker Name Role Phone SYSTEM, PROVIDER NOT IN [...] Unavailable Sherif Paredes MD Primary Care Provider GOPAL NOVA Admitting Unavailable GOPAL NOVA Attending [...] Unavailable MD Sherif Paredes Primary Care Provider [phone] MD Donovan La Admit Provider MD Donovan [...] Other Provider DO Aayush Faith Other Provider [phone] MD Fuentes Nazario Other Provider [phone] DO Cesar Parr Other Provider MD Emanuel Stevenson Other Provider [phone] MD Niurka Chung Other Provider MD Alex Hernandes Other Provider Unavailable NAN Andrea Other Provider [phone] MD Hali Springer Other Provider MD Fercho Newby Other Provider MD Adriana Ling Other Provider MD Saloni Esposito Other Provider DO Kay Blackburn Other Provider MD Lindsey Mgchee Other Provider MD Bahman Harley Other Provider ANTWAN Dyer Other Provider [phone] NAN Rodríguez Other Provider Unavailable MD Fletcher [...] Other Provider DO Lee Dumont Other Provider [phone] NAN Garrett Other Provider Unavailjen alanis SegunDO [...] atorvastatin; Translations: [ATORVASTATIN] Drug Allergy 6 AOF, [facility] Repository Medications Current Medications Medication Drug [...] mg oral capsule (4 sources) Start: 09-25-2023 Olympia-3 Acid E thyl Esters (Lovaza) 1 gram [...] disease (20 sources) Atherosclerotic heart disease of [place] coronary artery without angina pectoris; Translations: [Coronary [...] Resolved: 12-06-2021 Chronic Other aftercare (1 source) terminal 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 Glucose of more than 200 mg/dL in a nonstressed, ambulatory subject supports the diagnosis of Diabetes Mellitus. Glucose Poct Glucometerson 0 10-04-2023 Commemt1 Glu2: Cleaned Meter [facility] Comment on above: Result Comment: PERF ORMED BY: [place] [address] PATHOLOGIST [employer] DENIS PARADA M.D. Performed By: #### C , BMP #### [address] Glucose [Mass/Vol] 116 mg/dL Normal [facility] Comment on above: Result Comment: Gordon Glucose Reference Range is dependent on time and content of last meal. Glucose of more than 200 mg/dL in a nonstressed, ambulatory subject supports the diagnosis of Diabetes Mellitus. Performed By: #### C BC, BMP #### [facility] [address] [place] [address] No Panel InformationOrdered By: Donovan La on 10-04-2023 Bedside Glucose Comment Glu2: cleaned meter [facility] Glucose Poct Glucometerson 0 10-03-2023 Glucose [Mass/Vol] 119 mg/dL Normal [facility] Comment on above: Result Comment: Gordon om Glucose Reference Range is dependent on time and content of last meal. Glucose of more than 200 mg/dL in a nonstressed, ambulatory subject supports the diagnosis of Diabetes Mellitus. PERFORMED BY: [place] [id number] PATHOLOGIST [employer] DENIS PARADA M.D. Performed By: #### G LULS #### Point of Care testing , Glucose [Mass/Vol] 119 mg/dL Normal [facility] Comment on above: Result Comment: Gordon Glucose Reference Range is dependent on time and content of last meal. Glucose of more than 200 mg/dL in a nonstressed, ambulatory subject supports the diagnosis of Diabetes Mellitus. PERFORMED BY: [place] [address] PATHOLOGIST [employer] DENIS PARADA M.D. Performed By: #### C BC, BMP #### [address] Glucose Poct Glucometerson 0 10-02-2023 Glucose [Mass/Vol] 112 mg/dL Normal [facility] Comment on above: Result Comment: [facility] Glucose Reference Range is dependent on time and content of last meal. Glucose of more than 200 mg/dL in a nonstressed, ambulatory subject supports the diagnosis of Diabetes Mellitus. PERFORMED BY: [place] [address] PATHOLOGIST [employer] DENIS PARADA M.D. Performed By: #### G LULS #### Point of Care testing , Glucose [Mass/Vol] 111 mg/dL Normal [facility] Comment on above: Result Comment: Gordon Glucose Reference Range is dependent on time and content of last meal. Glucose of more than 200 mg/dL in a nonstressed, ambulatory subject supports the diagnosis of Diabetes Mellitus. PERFORMED BY: [place] [address] PATHOLOGIST [employer] DENIS PARADA M.D. Performed By: #### G LULS #### Point of Care testing , CT head/brain wo conon 10-01 CT head/brain wo [facility] [address] [place] [address] CT Scan Report Signed Patient: Janice Shultz MR#: [id number] 7 : 1945 Acct:[id number] Age/Sex: 78 / M ADM Date: 09/25/23 Loc: Room: 4T5673-9 Type: ADM IN Attending Dr: Donovan La [...] Kelvin Vasquez M.D.10/01/2023 9:43 AM Dictation Location: [place] [address] Transcribed By: [facility] 10/01/2343 Dictated By: Kelvin Vasquez II, MD 10/01/2341 Signed By: 10/01/23942 Normal [facility] Glucose Poct Glucometerson 0 10-01-2023 Commemt1 Glu2: Cleaned Meter Normal [facility] Comment on above: Result Comment: PERF ORMED BY: [address] [place] [address] PATHOLOGIST [employer] DENIS PARADA M.D. Performed By: #### G ALEKSANDAR #### Point of Care testing , Glucose [Mass/Vol] 111 mg/dL Normal [facility] Comment on above: Result Comment: [place] om Glucose Reference Range is dependent on time and content of last meal. Glucose of more than 200 mg/dL in a nonstressed, ambulatory subject supports the diagnosis of Diabetes Mellitus. Performed By: #### G ALEKSANDAR #### Point of Care testing , Glucose [Mass/Vol] 112 mg/dL Normal [facility] Comment on above: Result Comment: [place] om Glucose Reference Range is dependent on time and content of last meal. Glucose of more than 200 mg/dL in a nonstressed, ambulatory subject supports the diagnosis of Diabetes Mellitus. PERFORMED BY: [address] [place] [id number] PATHOLOGIST [employer] DENIS PARADA M.D. Performed By: #### G ALEKSANDAR #### Point of Care testing , Basic Metabolic Panelon 09-13 Anion gap [Moles/Vol] 10.5 mmol/L Normal 6.0-15.0 [facility] Comment on above: Performed By: #### C BC, BMP #### [facility] [address] [place] [address] [place] Calcium [Mass/Vol] 9.3 mg/dL Normal 8.6-10.3 [facility] Comment on above: Performed By: #### C BC, BMP #### [facility] [address] [place] [id number] [place] Chloride [Moles/Vol] 102 mmol/L Normal 98-107 [facility] Comment on above: Performed By: #### C BC, BMP #### [facility] [address] [place] [address] [place] CO2 [Moles/Vol] 26.8 mmol/L Normal 21.0-31.0 [facility] Comment on above: Performed By: #### C BC, BMP #### [address] Creatinine [Mass/Vol] 1.15 mg/dL Normal 0.70-1.30 [facility] Comment on above: Performed By: #### C BC, BMP #### [address] Creatinine Clr Calc Pharmacy 58.20 [facility] Comment on above: Result Comment: PERF ORMED BY: [place] [address] PATHOLOGIST [employer] DENIS PARADA M.D. Performed By: #### C BC, BMP #### [address] GFR/1.73 sq M.predicted MDRD (S/P/Bld) [Vol rate/Area] mL/min/{1.73_m2} [facility] Comment on above: Performed By: #### C BC, BMP #### [address] Glucose [Mass/Vol] 105 mg/dL High 70-100 [facility] Comment on above: Result Comment: [place] Glucose Reference Range is dependent on time and content of last meal. Glucose of more than 200 mg/dL in a nonstressed, ambulatory subject supports the diagnosis of Diabetes Mellitus. ADA recommended reference range Performed By: #### C BC, BMP #### [address] Potassium [Moles/Vol] 4.3 mmol/L Normal 3.5-5.1 [facility] Comment on above: Performed By: #### C BC, BMP #### [address] Sodium [Moles/Vol] 135 mmol/L Low 136-145 [facility] Comment on above: Performed By: #### C BC, BMP #### [facility] [address] Urea nitrogen [Mass/Vol] 25 mg/dL Normal 7-25 [facility] Comment on above: Performed By: #### C BC, BMP #### [address] Basophils Auto (Bld) [#/Vol] Ordered By: Tracy Fernandez on 09-30-2023 Basophils (Bld) [#/Vol] 0.1 10*3/uL 0.0-0.2 [facility] Basophils/100 WBC Auto (Bld) Ordered By: Tracy Fernandez on 09-30-2023 Basophils/100 WBC (Bld) 0.8 % . [facility] Calcium [Mass/volume] in Ser um or PlasmaOrdered By: Tracy Fernandez on 09-30-2023 Calcium [Mass/Vol] 9.3 mg/dL 8.6-10.3 [facility] Carbon dioxide, total [Moles /volume] in Serum or PlasmaOrdered By: Tracy Fernandez on 09-30-2023 CO2 [Moles/Vol] 26.8 mmol/L 21.0-31.0 [facility] Chloride [Moles/volume] in S papi or PlasmaOrdered By: Tracy Fernandez on 09-30-2023 Chloride [Moles/Vol] 102 mmol/L 98-107 [facility] Complete Blood Count Auto Di ffon 09-30-2023 Basophils (Bld) [#/Vol] 0.1 10*3/uL Normal 0.0-0.2 [facility] Comment on above: Result Comment: PERF ORMED BY: [place] [address] PATHOLOGIST [employer] DENIS PARADA M.D. Performed By: #### C JAZLYN, BMP #### [address] Basophils/100 WBC (Bld) 0.8 % Normal . [facility] Comment on above: Performed By: #### C BC, BMP #### [facility] [address] [place] [address] [place] Eosinophils (Bld) [#/Vol] 0.2 10*3/uL Normal 0.0-0.45 [facility] Comment on above: Performed By: #### C BC, BMP #### [facility] [address] [place] [address] [place] Eosinophils/100 WBC (Bld) 2.1 % Normal . [facility] Comment on above: Performed By: #### C BC, BMP #### [address] Erythrocyte distribution width (RBC) [Ratio] 13.9 % Normal 12.0-14.8 [facility] Comment on above: Performed By: #### C BC, BMP #### [address] Hematocrit (Bld) [Volume fraction] 42.2 % Normal 38.8-50.0 [facility] Comment on above: Performed By: #### C BC, BMP #### [address] Hemoglobin (Bld) [Mass/Vol] 13.9 g/dL Normal 13.0-17.0 [facility] Comment on above: Performed By: #### C BC, BMP #### [address] Lymphocytes (Bld) [#/Vol] 2.0 10*3/uL Normal 1.00-4.8 [facility] Comment on above: Performed By: #### C BC, BMP #### [place] [address] [place] Lymphocytes/100 WBC (Bld) 21.6 % Normal . [facility] Comment on above: Performed By: #### C BC, BMP #### [address] MCH (RBC) [Entitic mass] 27.9 pg Normal 27.5-35.2 [facility] Comment on above: Performed By: #### C BC, BMP #### [address] [place] [address] [place] MCV (RBC) [Entitic vol] 84.7 fL Normal 83.5-101 [facility] Comment on above: Performed By: #### C BC, BMP #### [address] Mean Corpuscular HGB Conc 32.9 g/dL Normal 32.5-35.6 [facility] Comment on above: Performed By: #### C BC, BMP #### [address] Monocytes (Bld) [#/Vol] 0.7 10*3/uL Normal 0.0-0.8 [facility] Comment on above: Performed By: #### C BC, BMP #### [address] Monocytes/100 WBC (Bld) 7.8 % Normal . [facility] Comment on above: Performed By: #### C BC, BMP #### [address] Neutrophils (Bld) [#/Vol] 6.2 10*3/uL Normal 1.8-7.7 [facility] Comment on above: Performed By: #### C BC, BMP #### [address] Neutrophils/100 WBC (Bld) 67.7 % Normal . [facility] Comment on above: Performed By: #### C BC, BMP #### [address] NRBC% 0.1 /100{WBC} Normal 0-0.5 [facility] Comment on above: Performed By: #### C BC, BMP #### [address] Platelet mean volume (Bld) [Entitic vol] 8.6 fL Normal 6.6-10.1 [facility] Comment on above: Performed By: #### C BC, BMP #### [address] Platelets (Bld) [#/Vol] 309 10*3/uL Normal 150-450 [facility] Comment on above: Performed By: #### C JAZLYN, BMP #### [facility] [address] RBC (Bld) [#/Vol] 4.99 10*6/uL Normal 3.90-5.60 [facility] Comment on above: Performed By: #### C JAZLYN, BMP #### [facility] [address] WBC (Bld) [#/Vol] 9.2 10*3/uL Normal 4.1-10.5 [facility] Comment on above: Performed By: #### C JAZLYN, BMP #### [address] Creatinine [Mass/volume] in Serum or PlasmaOrdered By: Tracy Fernandez on 09-30-2023 Creatinine [Mass/Vol] 1.15 mg/dL 0.70-1.30 [facility] Eosinophils Auto (Bld) [#/Vo l]Ordered By: Tracy Fernandez on 09-30-2023 Eosinophils (Bld) [#/Vol] 0.2 10*3/uL 0.0-0.45 [facility] Eosinophils/100 WBC Auto (Bl d)Ordered By: Tracy Fernandez on 09-30-2023 Eosinophils/100 WBC (Bld) 2.1 % . [facility] Erythrocyte distribution wid th Auto (RBC) [Ratio]Ordered By: Tracy Fernandez on 09-30-2023 Erythrocyte distribution width (RBC) [Ratio] 13.9 % 12.0-14.8 [facility] Glucose Poct Glucometerson 0 09-30-2023 Commemt1 Glu2: Cleaned Meter Normal [facility] Comment on above: Result Comment: PERF ORMED BY: [place] [address] PATHOLOGIST [employer] DENIS PARADA M.D. Performed By: #### G LUGLENN #### Point of Care testing , Glucose [Mass/Vol] 94 mg/dL Normal [facility] Comment on above: Result Comment: [place] om Glucose Reference Range is dependent on time and content of last meal. Glucose of more than 200 mg/dL in a nonstressed, ambulatory subject supports the diagnosis of Diabetes Mellitus. Performed By: #### G LULS #### Point of Care testing , Glucose [Mass/Vol] 98 mg/dL Normal [facility] Comment on above: Result Comment: [place] om Glucose Reference Range is dependent on time and content of last meal. Glucose of more than 200 mg/dL in a nonstressed, ambulatory subject supports the diagnosis of Diabetes Mellitus. PERFORMED BY: [facility] [address] [place] [address] PATHOLOGIST [employer] DENIS PARADA M.D. Performed By: #### G LULS #### Point of Care testing , Glucose [Mass/Vol] 112 mg/dL Normal [facility] Comment on above: Result Comment: [place] om Glucose Reference Range is dependent on time and content of last meal. Glucose of more than 200 mg/dL in a nonstressed, ambulatory subject supports the diagnosis of Diabetes Mellitus. PERFORMED BY: [facility] [address] [place] [address] PATHOLOGIST [employer] DENIS PARADA M.D. Performed By: #### G LULS #### Point of Care testing , Glucose [Mass/volume] in Ser um or PlasmaOrdered By: Tracy Fernandez on 09-30-2023 Glucose [Mass/Vol] 105 mg/dL 70-100 [facility] Comment on above: ADA recommended refe rence rangeRandom Glucose Reference Range is dependent on time and content of last meal. Glucose of more than 200 mg/dL in a nonstressed, ambulatory subject supports the diagnosis of Diabetes Mellitus. Hematocrit Auto (Bld) [Volum e fraction]Ordered By: Tracy Fernandez on 09-30-2023 Hematocrit (Bld) [Volume fraction] 42.2 % 38.8-50.0 [facility] Hemoglobin [Mass/volume] in BloodOrdered By: Tracy Fernandez on 09-30-2023 Hemoglobin (Bld) [Mass/Vol] 13.9 g/dL 13.0-17.0 [facility] Leukocytes [#/volume] correc alysia for nucleated erythrocytes in Blood by Automated counOrdered By: Tracy Fernandez on 09-30-2023 WBC corrected for nucl RBC Auto (Bld) [#/Vol] 9.2 10*3/uL 4.1-10.5 [facility] Lymphocytes Auto (Bld) [#/Vo l]Ordered By: Tracy Fernandez on 09-30-2023 Lymphocytes (Bld) [#/Vol] 2.0 10*3/uL 1.00-4.8 [facility] Lymphocytes/100 WBC Auto (Bl d)Ordered By: Tracy Fernandez on 09-30-2023 Lymphocytes/100 WBC (Bld) 21.6 % . [facility] MCH Auto (RBC) [Entitic mass ]Ordered By: Tracy Fernandez on 09-30-2023 MCH (RBC) [Entitic mass] 27.9 pg 27.5-35.2 [facility] MCHC Auto (RBC) [Mass/Vol]Or dered By: Tracy Fernandez on 09-30-2023 MCHC (RBC) [Mass/Vol] 32.9 g/dL 32.5-35.6 [facility] MCV Auto (RBC) [Entitic vol] Ordered By: Tracy Fernandez on 09-30-2023 MCV (RBC) [Entitic vol] 84.7 fL 83.5-101 [facility] Monocytes Auto (Bld) [#/Vol] Ordered By: Tracy Fernandez on 09-30-2023 Monocytes (Bld) [#/Vol] 0.7 10*3/uL 0.0-0.8 [facility] Monocytes/100 WBC Auto (Bld) Ordered By: Tracy Fernandez on 09-30-2023 Monocytes/100 WBC (Bld) 7.8 % . [facility] Neutrophils Auto (Bld) [#/Vo l]Ordered By: Tracy Fernandez on 09-30-2023 Neutrophils (Bld) [#/Vol] 6.2 10*3/uL 1.8-7.7 [facility] Neutrophils/100 WBC Auto (Bl d)Ordered By: Tracy Fernandez on 09-30-2023 Neutrophils/100 WBC (Bld) 67.7 % . [facility] No Panel InformationOrdered By: Tracy Fernandez on 09-30-2023 Estimated GFR (CKD-EPI) > 60.0 mL/Min [facility] Creatinine Clearance (Chem 58.20 [facility] Nucleated erythrocytes [Pres ence] in Blood by Automated countOrdered By: Tracy Fernandez on 09-30-2023 Nucleated RBC Auto Ql (Bld) 0.1 /100{WBC} 0-0.5 [facility] Platelet mean volume Auto (B ld) [Entitic vol]Ordered By: Tracy Fernandez on 09-30-2023 Platelet mean volume (Bld) [Entitic vol] 8.6 fL 6.6-10.1 [facility] Platelets Auto (Bld) [#/Vol] Ordered By: Tracy Fernandez on 09-30-2023 Platelets (Bld) [#/Vol] 309 10*3/uL 150-450 [facility] Potassium [Moles/volume] in Serum or PlasmaOrdered By: Tracy Fernandez on 09-30-2023 Potassium [Moles/Vol] 4.3 mmol/L 3.5-5.1 [facility] RBC Auto (Bld) [#/Vol]Ordere d By: Tracy Fernandez on 09-30-2023 RBC (Bld) [#/Vol] 4.99 10*6/uL 3.90-5.60 [facility] Serum or plasma anion gap de terminationOrdered By: Tracy Fernandez on 09-30-2023 Anion gap [Moles/Vol] 10.5 mmol/L 6.0-15.0 [facility] Sodium [Moles/volume] in Ser um or PlasmaOrdered By: Tracy Fernandez on 09-30-2023 Sodium [Moles/Vol] 135 mmol/L 136-145 [facility] Urea nitrogen [Mass/volume] in Serum or PlasmaOrdered By: Tracy Fernandez on 09-30-2023 Urea nitrogen [Mass/Vol] 25 mg/dL 7-25 [facility] WBC Auto (Bld) [#/Vol]Ordere d By: Tracy Rebecca on 09-30-2023 WBC (Bld) [#/Vol] 9.2 10*3/uL 4.1-10.5 [facility] Glucose Poct Glucometerson 0 09-29-2023 Commemt1 Glu2: Cleaned Meter Normal [facility] Comment on above: Result Comment: PERF ORMED BY: [facility] [address] [place] [address] PATHOLOGIST [employer] DENIS PARADA M.D. Performed By: #### G LULS #### Point of Care testing , Glucose [Mass/Vol] 112 mg/dL Normal [facility] Comment on above: Result Comment: [place] om Glucose Reference Range is dependent on time and content of last meal. Glucose of more than 200 mg/dL in a nonstressed, ambulatory subject supports the diagnosis of Diabetes Mellitus. Performed By: #### G LULS #### Point of Care testing , Glucose [Mass/Vol] 99 mg/dL Normal [facility] Comment on above: Result Comment: [place] om Glucose Reference Range is dependent on time and content of last meal. Glucose of more than 200 mg/dL in a nonstressed, ambulatory subject supports the diagnosis of Diabetes Mellitus. PERFORMED BY: [facility] [address] [place] [address] PATHOLOGIST [employer] DENIS PARADA M.D. Performed By: #### G LULS #### Point of Care testing , Glucose Poct Glucometerson 0 09-28-2023 Glucose [Mass/Vol] 96 mg/dL Normal [facility] Comment on above: Result Comment: [place] om Glucose Reference Range is dependent on time and content of last meal. Glucose of more than 200 mg/dL in a nonstressed, ambulatory subject supports the diagnosis of Diabetes Mellitus. PERFORMED BY: [facility] [address] [place] [address] PATHOLOGIST [employer] DENIS PARADA M.D. Performed By: #### G LULS #### Point of Care testing , Glucose [Mass/Vol] 116 mg/dL Normal [facility] Comment on above: Result Comment: [facility] Glucose Reference Range is dependent on time and content of last meal. Glucose of more than 200 mg/dL in a nonstressed, ambulatory subject supports the diagnosis of Diabetes Mellitus. PERFORMED BY: [place] [address] PATHOLOGIST [employer] DENIS PARADA M.D. Performed By: #### C BC, BMP #### [address] head/brain wo conon 09-27 CT head/brain wo con [facility] [place] [address] [place] [address] CT Scan Report Signed with Addenda Patient: Janice Shultz MR#: [id number] 7 : 1945 Acct:[id number] Age/Sex: 78 / M ADM Date: 09/25/23 Loc: Room: [address] [place] [address] Type: ADM IN Attending Dr: Donovan La [...] Dalton Jr., D.O.09/27/2023 2:20 PM Dictation Location: [place] [address] Addendum Dictated By: Hernan Dalton Jr DO [...] Dalton Jr., D.O.09/27/2023 1:40 PM Dictation Location: [place] [address] Transcribed By: [facility] 09/27/23 1340 Dictated By: Hernan Dalton Jr, DO 09/27/23 1330 Signed By: 09/27/23 1340 Normal [facility] Glucose Poct Glucometerson 0 09-27-2023 Glucose [Mass/Vol] 104 mg/dL Normal [facility] Comment on above: Result Comment: [facility] Glucose Reference Range is dependent on time and content of last meal. Glucose of more than 200 mg/dL in a nonstressed, ambulatory subject supports the diagnosis of Diabetes Mellitus. PERFORMED BY: [facility] [place] [address] PATHOLOGIST [employer] DENIS PARADA M.D. Performed By: #### G ALEKSANDAR #### Point of Care testing , Glucose [Mass/Vol] 114 mg/dL Normal [facility] Comment on above: Result Comment: [place] om Glucose Reference Range is dependent on time and content of last meal. Glucose of more than 200 mg/dL in a nonstressed, ambulatory subject supports the diagnosis of Diabetes Mellitus. PERFORMED BY: [place] [address] PATHOLOGIST [employer] DENIS PARADA M.D. Performed By: #### C BC, BMP #### [facility] [address] [place], [place] [id number] [facility] Alanine aminotransferase [En zymatic activity/volume] in Serum or PlasmaOrdered By: Donovan La on 09-26-2023 ALT [Catalytic activity/Vol] 48 U/L 7-52 [facility] Albumin [Mass/volume] in Ser um or Plasma by Bromocresol green (BCG) dye binding methoOrdered By: Mandaeismanish La on 09-26-2023 Albumin BCG dye [Mass/Vol] 3.7 g/dL 3.5-5.7 [facility] Alkaline phosphatase [Enzyma tic activity/volume] in Serum or PlasmaOrdered By: Donovan La on 09-26-2023 ALP [Catalytic activity/Vol] 47 U/L 34-104 [facility] Aspartate aminotransferase [ Enzymatic activity/volume] in Serum or PlasmaOrdered By: Mandaeism [facility] on 09-26-2023 AST [Catalytic activity/Vol] 22 U/L 13-39 [facility] Bilirubin.total [Mass/volume ] in Serum or PlasmaOrdered By: Donovan La on 09-26-2023 Bilirubin [Mass/Vol] 0.7 mg/dL 0.3-1.0 [facility] Complete Blood Count Auto Di ffon 09-26-2023 Basophils (Bld) [#/Vol] 0.1 10*3/uL Normal 0.0-0.2 [facility] Comment on above: Result Comment: PERF ORMED BY: [place] [address] PATHOLOGIST [employer] DENIS PARADA M.D. Performed By: #### C MP, CBC, PAB #### [facility] [address] [place], [place] [id number] [place] Basophils/100 WBC (Bld) 1.1 % Normal . [facility] Comment on above: Performed By: #### C MP, CBC, PAB #### [place] [address] [place] Eosinophils (Bld) [#/Vol] 0.2 10*3/uL Normal 0.0-0.45 [facility] Comment on above: Performed By: #### C MP, CBC, PAB #### [address] Eosinophils/100 WBC (Bld) 2.1 % Normal . [facility] Comment on above: Performed By: #### C MP, CBC, PAB #### [address] Erythrocyte distribution width (RBC) [Ratio] 13.5 % Normal 12.0-14.8 [facility] Comment on above: Performed By: #### C MP, CBC, PAB #### [address] Hematocrit (Bld) [Volume fraction] 40.4 % Normal 38.8-50.0 [facility] Comment on above: Performed By: #### C MP, CBC, PAB #### [address] Hemoglobin (Bld) [Mass/Vol] 13.7 g/dL Normal 13.0-17.0 [facility] Comment on above: Performed By: #### C MP, CBC, PAB #### [place] [address] [place] Lymphocytes (Bld) [#/Vol] 1.8 10*3/uL Normal 1.00-4.8 [facility] Comment on above: Performed By: #### C MP, CBC, PAB #### [place] [address] [place] Lymphocytes/100 WBC (Bld) 19.4 % Normal . [facility] Comment on above: Performed By: #### C MP, CBC, PAB #### [address] MCH (RBC) [Entitic mass] 28.5 pg Normal 27.5-35.2 [facility] Comment on above: Performed By: #### C MP, CBC, PAB #### [address] MCV (RBC) [Entitic vol] 84.0 fL Normal 83.5-101 [facility] Comment on above: Performed By: #### C MP, CBC, PAB #### [address] Mean Corpuscular HGB Conc 33.9 g/dL Normal 32.5-35.6 [facility] Comment on above: Performed By: #### C MP, CBC, PAB #### [address] Monocytes (Bld) [#/Vol] 0.9 10*3/uL High 0.0-0.8 [facility] Comment on above: Performed By: #### C MP, CBC, PAB #### [address] Monocytes/100 WBC (Bld) 9.4 % Normal . [facility] Comment on above: Performed By: #### C MP, CBC, PAB #### [address] Neutrophils (Bld) [#/Vol] 6.2 10*3/uL Normal 1.8-7.7 [facility] Comment on above: Performed By: #### C MP, CBC, PAB #### [address] Neutrophils/100 WBC (Bld) 68.0 % Normal . [facility] Comment on above: Performed By: #### C MP, CBC, PAB #### [address] NRBC% 0.0 /100{WBC} Normal 0-0.5 [facility] Comment on above: Performed By: #### C MP, CBC, PAB #### [address] Platelet mean volume (Bld) [Entitic vol] 8.4 fL Normal 6.6-10.1 [facility] Comment on above: Performed By: #### C MP, CBC, PAB #### [facility] [address] Platelets (Bld) [#/Vol] 244 10*3/uL Normal 150-450 [facility] Comment on above: Performed By: #### C MP, CBC, PAB #### [facility] [address] [place] [address] RBC (Bld) [#/Vol] 4.81 10*6/uL Normal 3.90-5.60 [facility] Comment on above: Performed By: #### C MP, CBC, PAB #### [address] WBC (Bld) [#/Vol] 9.1 10*3/uL Normal 4.1-10.5 [facility] Comment on above: Performed By: #### C MP, CBC, PAB #### [address] Comprehensive Metabolic Pane tejas 09-26-2023 Albumin [Mass/Vol] 3.7 g/dL Normal 3.5-5.7 [facility] Comment on above: Performed By: #### C MP, CBC, PAB #### [address] Albumin/Globulin [Mass ratio] 1.2 {ratio} Normal [facility] Comment on above: Performed By: #### C MP, CBC, PAB #### [address] ALP [Catalytic activity/Vol] 47 U/L Normal 34-104 [facility] Comment on above: Performed By: #### C MP, CBC, PAB #### [address] ALT [Catalytic activity/Vol] 48 U/L Normal 7-52 [facility] Comment on above: Performed By: #### C MP, CBC, PAB #### [facility] [address] [place] [address] [place] Anion gap [Moles/Vol] 12.8 mmol/L Normal 6.0-15.0 [facility] Comment on above: Performed By: #### C MP, CBC, PAB #### [facility] [address] [place] [address] [place] AST [Catalytic activity/Vol] 22 U/L Normal 13-39 [facility] Comment on above: Performed By: #### C MP, CBC, PAB #### [facility] [address] [place] [address] [place] Bilirubin [Mass/Vol] 0.7 mg/dL Normal 0.3-1.0 [facility] Comment on above: Performed By: #### C MP, CBC, PAB #### [facility] [address] Calcium [Mass/Vol] 8.8 mg/dL Normal 8.6-10.3 [facility] Comment on above: Performed By: #### C MP, CBC, PAB #### [facility] [address] [place] [id number] [place] Chloride [Moles/Vol] 104 mmol/L Normal 98-107 [facility] Comment on above: Performed By: #### C MP, CBC, PAB #### [facility] [address] [place] [phone] [place] CO2 [Moles/Vol] 23.1 mmol/L Normal 21.0-31.0 [facility] Comment on above: Performed By: #### C MP, CBC, PAB #### [facility] [address] [place] [phone] [place] Creatinine [Mass/Vol] 0.93 mg/dL Normal 0.70-1.30 [facility] Comment on above: Performed By: #### C MP, CBC, PAB #### [facility] [address] [place] [phone] [place] Creatinine Clr Calc Pharmacy 71.97 Normal [facility] Comment on above: Performed By: #### C MP, CBC, PAB #### [facility] [address] [place] [address] [place] GFR/1.73 sq M.predicted MDRD (S/P/Bld) [Vol rate/Area] mL/min/{1.73_m2} [facility] Comment on above: Performed By: #### C MP, CBC, PAB #### [facility] [address] Globulin (S) [Mass/Vol] 3.2 g/dL Normal [facility] Comment on above: Performed By: #### C MP, CBC, PAB #### [facility] [address] Glucose [Mass/Vol] 132 mg/dL High 70-100 [facility] Comment on above: Result Comment: [place] Glucose Reference Range is dependent on time and content of last meal. Glucose of more than 200 mg/dL in a nonstressed, ambulatory subject supports the diagnosis of Diabetes Mellitus. ADA recommended reference range Performed By: #### C MP, CBC, PAB #### [address] Potassium [Moles/Vol] 3.9 mmol/L Normal 3.5-5.1 [facility] Comment on above: Performed By: #### C MP, CBC, PAB #### [place] [address] [place] Protein [Mass/Vol] 6.9 g/dL Normal 6.4-8.9 [facility] Comment on above: Performed By: #### C MP, CBC, PAB #### [place] [address] [place] Sodium [Moles/Vol] 136 mmol/L Normal 136-145 [facility] Comment on above: Performed By: #### C MP, CBC, PAB #### [facility] [address] [place] [address] [place] Urea nitrogen [Mass/Vol] 23 mg/dL Normal 7-25 [facility] Comment on above: Performed By: #### C MP, CBC, PAB #### [address] [place] [address] [facility] Globulin Calc (S) [Mass/Vol] Ordered By: Donovan La on 09-26-2023 Globulin (S) [Mass/Vol] 3.2 g/dL [facility] Glucose Poct Glucometerson 0 09-26-2023 Glucose [Mass/Vol] 175 mg/dL Normal [facility] Comment on above: Result Comment: [place] Glucose Reference Range is dependent on time and content of last meal. Glucose of more than 200 mg/dL in a nonstressed, ambulatory subject supports the diagnosis of Diabetes Mellitus. PERFORMED BY: [place] [address] PATHOLOGIST [employer] DENIS PARADA M.D. Performed By: #### C BC, BMP #### [address] Glucose [Mass/Vol] 125 mg/dL Normal [facility] Comment on above: Result Comment: [place] Glucose Reference Range is dependent on time and content of last meal. Glucose of more than 200 mg/dL in a nonstressed, ambulatory subject supports the diagnosis of Diabetes Mellitus. PERFORMED BY: [place] [address] PATHOLOGIST [employer] DENIS PARADA M.D. Performed By: #### C BC, BMP #### [place] [id number] [place] Prealbuminon 09-26-2023 Prealbumin [Mass/Vol] 22.8 mg/dL Normal 17.0-34.0 [facility] Comment on above: Result Comment: PERF ORMED BY: [place] [address] PATHOLOGIST [employer] DENIS PARADA M.D. Performed By: #### C MP, CBC, PAB #### [place] [phone] [place] Prealbumin [Mass/volume] in Serum or PlasmaOrdered By: Donovan La on 09-26-2023 Prealbumin [Mass/Vol] 22.8 mg/dL 17.0-34.0 [facility] Protein [Mass/volume] in Ser um or PlasmaOrdered By: Donovan La on 09-26-2023 Protein [Mass/Vol] 6.9 g/dL 6.4-8.9 [facility] Serum or plasma albumin/glob ulin mass ratioOrdered By: Donovan La on 09-26-2023 Albumin/Globulin [Mass ratio] 1.2 {ratio} [facility] CBC AND AUTO DIFFon 09-25-19 24 ABSOLUTE BASOPHIL 0.1 X10E9/L Normal 0.0-0.2 [facility] Comment on above: Performed By: #### C WINSOME GARCIA, 15714-4 #### [facility] ([id number]) [address] [place] [address] ABSOLUTE NEUTROPHIL 7.0 X10E9/L High 1.5-6.6 [facility] Comment on above: Performed By: #### C RADHA CMP, 59472-9 #### [facility] ([id number]) [address] [place] [address] Basophils/100 WBC (Bld) 0.6 % Normal [facility] Comment on above: Performed By: #### C RADHA CMP, 92583-3 #### [facility] ([id number]) [address] [place] [address] Eosinophils (Bld) [#/Vol] 0.2 10*3/uL Normal 0.0-0.4 [facility] Comment on above: Performed By: #### C BCA, CMP, 08333-8 #### [facility] ([id number]) [address], [address] [place] [address] Eosinophils/100 WBC (Bld) 2.2 % Normal [facility] Comment on above: Performed By: #### C BCA, CMP, 73267-7 #### [facility] ([id number]) [address] [place] [address] Erythrocyte distribution width (RBC) [Ratio] 13.6 % Normal 11.5-15.0 [facility] Comment on above: Performed By: #### Susy GARCIA CMP, 43816-3 #### [facility] ([id number]) [address] [address] [place] [address] Hematocrit (Bld) [Volume fraction] 44.0 % Normal 39-49 [facility] Comment on above: Performed By: #### Susy GARCIA CMP, 93199-2 #### [facility] ([id number]) [address] [address] [place] [address] Hemoglobin (Bld) [Mass/Vol] 14.7 g/dL Normal 13.0-17.0 [facility] Comment on above: Performed By: #### Susy GARCIA CMP, 32290-5 #### [facility] ([id number]) [address] [address] [place] [address] Lymphocytes (Bld) [#/Vol] 1.5 10*3/uL Normal 1.0-3.5 [facility] Comment on above: Performed By: #### Susy GARCIA CMP, 56464-6 #### [facility] ([id number]) [address] [address] [place] [address] Lymphocytes/100 WBC (Bld) 15.5 % Normal [facility] Comment on above: Performed By: #### Susy GARCIA CMP, 09211-6 #### [facility] ([id number]) [address] [place] [address] MCH (RBC) [Entitic mass] 28.4 pg Normal 27-34 [facility] Comment on above: Performed By: #### Susy GARCIA CMP, 21594-1 #### [facility] ([id number]) [address] [address] [place] [address] MCHC (RBC) [Mass/Vol] 33.4 g/dL Normal 32-36 [facility] Comment on above: Performed By: #### Susy GARCIA CMP, 78197-5 #### [facility] ([id number]) [address] [place] [address] MCV (RBC) [Entitic vol] 85 fL Normal 80-100 [facility] Comment on above: Performed By: #### Susy GARCIA CMP, 83187-5 #### [facility] ([id number]) [address] [place] [address] Monocytes (Bld) [#/Vol] 0.7 10*3/uL Normal 0-0.9 [facility] Comment on above: Performed By: #### Susy GARCIA CMP, 55606-6 #### [facility] ([id number]) [address] [place] [address] Monocytes/100 WBC (Bld) 7.4 % Normal [facility] Comment on above: Performed By: #### Susy GARCIA CMP, 20618-9 #### [facility] ([id number]) [address] [place] [address] Neutrophils/100 WBC (Bld) 74.3 % Normal [facility] Comment on above: Performed By: #### Susy GARCIA CMP, 17110-7 #### [facility] ([id number]) [address] [place] [address] Platelet mean volume (Bld) [Entitic vol] 8.7 fL Normal 7-12 [facility] Comment on above: Performed By: #### Susy GARCIA CMP, 59353-8 #### [facility] ([id number]) [address] [place] [address] Platelets (Bld) [#/Vol] 234 10*3/uL Normal 150-450 [facility] Comment on above: Performed By: #### C BCA, CMP, 81354-9 #### [facility] ([id number]) [address] [place] [address] RBC COUNT 5.19 X10E12/L Normal 4.10-5.70 [facility] Comment on above: Performed By: #### C BCA, CMP, 27495-4 #### [facility] ([id number]) [address] [place] [address] WBC (Bld) [#/Vol] 9.4 10*3/uL Normal 4.0-11.0 [facility] [place] Comment on above: Performed By: #### C BCA, CMP, 22638-2 #### [facility] ([id number]) [address] [place] [address] COMPREHENSIVE METABOLIC PANE [place] 09-25-2023 Albumin [Mass/Vol] 3.8 g/dL Normal 3.2-5.3 [facility] [place] Comment on above: Performed By: #### C BCA, CMP, 85977-0 #### [facility] ([id number]) [address] [place] [address] ALP [Catalytic activity/Vol] 48 U/L Normal 39-130 [facility] Comment on above: Performed By: #### C BCA, CMP, 94287-9 #### [facility] ([id number]) [address], [address] [place] [address] ALT [Catalytic activity/Vol] 65 U/L High 0-40 [facility] Comment on above: Performed By: #### C BCA, CMP, 81899-8 #### [facility] ([id number]) [address], [address] [place] [address] Anion gap [Moles/Vol] 10 mmol/L Normal 5-15 [facility] Comment on above: Performed By: #### C BCA, CMP, 52840-6 #### [facility] ([id number]) [address], [address] [place] [address] AST [Catalytic activity/Vol] 48 U/L High 0-41 [facility] Comment on above: Performed By: #### C BCA, CMP, 16159-5 #### [facility] ([id number]) [address] [place] [address] Bilirubin [Mass/Vol] 0.8 mg/dL Normal 0.3-1.2 [facility] Comment on above: Performed By: #### C BCA, CMP, 80698-6 #### [facility] ([id number]) [address] [place] [address] Calcium [Mass/Vol] 8.9 mg/dL Normal 8.5-10.5 [facility] [place] Comment on above: Performed By: #### C BCA, CMP, 23817-9 #### [facility] ([id number]) [address] [place] [address] Chloride [Moles/Vol] 101 mmol/L Normal 98-109 [facility] Comment on above: Performed By: #### C BCA, CMP, 26783-1 #### [facility] ([id number]) [address] [place] [address] CO2 [Moles/Vol] 24 mmol/L Normal 22-32 [facility] Comment on above: Performed By: #### C BCA, CMP, 97662-3 #### [facility] ([id number]) [address] [place] [address] Creatinine [Mass/Vol] 0.85 mg/dL Normal 0.60-1.30 [facility] Comment on above: Result Comment: METH OD TRACEABLE TO IDMS STANDARD Performed By: #### C BCA, CMP, 14147-5 #### [facility] ([id number]) [address] [address] [place] [address] eGFR (CKD-EPI) NON-RACE DEPENDENT >90 Normal >59 [facility] Comment on above: Result Comment: Reported eGFR is based on the CKD-EPI 2020 equation that does not use a race coefficient. Performed By: #### C RADHA CMP, 52533-8 #### [facility] ([id number]) [address] [address] [place] [address] Glucose [Mass/Vol] 121 mg/dL High 65-99 [facility] [place] Comment on above: Performed By: #### C RADHA, CMP, 66882-7 #### [facility] ([id number]) [address] [place] [address] Potassium [Moles/Vol] 4.4 mmol/L Normal 3.5-5.0 [facility] Comment on above: Performed By: #### C BCA, CMP, 94804-1 #### [facility] ([id number]) [address] [address] [place] [address] Protein [Mass/Vol] 7.3 g/dL Normal 6.0-8.0 [facility] [place] Comment on above: Performed By: #### C BCA, CMP, 41515-3 #### [facility] ([id number]) [address] [address] [place] [address] Sodium [Moles/Vol] 135 mmol/L Normal 134-146 [facility] [place] Comment on above: Performed By: #### C BCA, CMP, 02757-7 #### [facility] ([id number]) [address] [address] [place] [address] Urea nitrogen [Mass/Vol] 21 mg/dL Normal 5-27 [facility] Comment on above: Performed By: #### C BCA, CMP, 20506-1 #### [facility] ([id number]) [address] [place] [address] Glucose Glucometer (BldC) [M ass/Vol]on 09-25-2023 Glucose [Mass/Vol] 126 mg/dL High 65-99 [facility] Glucose [Mass/Vol] 112 mg/dL High 65-99 [facility] [place] Glucose Poct Glucometerson 0 09-25-2023 Glucose [Mass/Vol] 130 mg/dL Normal [facility] Comment on above: Result Comment: [facility] Glucose Reference Range is dependent on time and content of last meal. Glucose of more than 200 mg/dL in a nonstressed, ambulatory subject supports the diagnosis of Diabetes Mellitus. PERFORMED BY: [place] [address] PATHOLOGIST [employer] DENIS PARADA M.D. Performed By: #### C BC, BMP #### [facility] [address] CBC AND AUTO DIFFon 09-24-19 ABSOLUTE BASOPHIL 0.1 X10E9/L Normal 0.0-0.2 [facility] [place] Comment on above: Performed By: #### Susy GARCIA CMP, 00152-1 #### [facility] ([id number]) [address] [place] [address] ABSOLUTE NEUTROPHIL 6.2 X10E9/L Normal 1.5-6.6 [facility] Comment on above: Performed By: #### Susy GARCIA CMP, 01957-6 #### [facility] ([id number]) [address] [place] [address] Basophils/100 WBC (Bld) 0.6 % Normal [facility] Comment on above: Performed By: #### Susy GARCIA CMP, 43384-8 #### [facility] ([id number]) [address] [place] [address] Eosinophils (Bld) [#/Vol] 0.3 10*3/uL Normal 0.0-0.4 [facility] Comment on above: Performed By: #### C RADHA CMP, 54369-1 #### [facility] ([id number]) [address] [place] [address] Eosinophils/100 WBC (Bld) 3.3 % Normal [facility] Comment on above: Performed By: #### C RADHA CMP, 00955-7 #### [facility] ([id number]) [address] [place] [address] Erythrocyte distribution width (RBC) [Ratio] 13.4 % Normal 11.5-15.0 [facility] Comment on above: Performed By: #### Susy GARCIA CMP, 82601-2 #### [facility] ([id number]) [address] [place] [address] Hematocrit (Bld) [Volume fraction] 44.1 % Normal 39-49 [facility] Comment on above: Performed By: #### Susy GARCIA CMP, 50642-8 #### [facility] ([id number]) [address] [place] [address] Hemoglobin (Bld) [Mass/Vol] 14.9 g/dL Normal 13.0-17.0 [facility] Comment on above: Performed By: #### Susy GARCIA CMP, 44042-7 #### [facility] ([id number]) [address] [place] [address] Lymphocytes (Bld) [#/Vol] 1.6 10*3/uL Normal 1.0-3.5 [facility] Comment on above: Performed By: #### C RADHA, CMP, 47208-6 #### [facility] ([id number]) [address] [place] [address] Lymphocytes/100 WBC (Bld) 18.2 % Normal [facility] Comment on above: Performed By: #### C RADHA, CMP, 42137-7 #### [facility] ([id number]) [address] [place] [address] MCH (RBC) [Entitic mass] 28.6 pg Normal 27-34 [facility] Comment on above: Performed By: #### Susy GARCIA CMP, 87309-2 #### [facility] ([id number]) [address] [place] [address] MCHC (RBC) [Mass/Vol] 33.7 g/dL Normal 32-36 [facility] Comment on above: Performed By: #### Susy GARCIA, CMP, 25505-3 #### [facility] ([id number]) [address] [place] [address] MCV (RBC) [Entitic vol] 85 fL Normal 80-100 [facility] Comment on above: Performed By: #### Susy GARCIA CMP, 67732-9 #### [facility] ([id number]) [address] [place] [address] Monocytes (Bld) [#/Vol] 0.6 10*3/uL Normal 0-0.9 [facility] Comment on above: Performed By: #### Susy GARCIA, CMP, 18377-1 #### [facility] ([id number]) [address] [place] [address] Monocytes/100 WBC (Bld) 7.1 % Normal [facility] Comment on above: Performed By: #### Susy GARCIA, CMP, 93398-6 #### [facility] ([id number]) [address] [place] [address] Neutrophils/100 WBC (Bld) 70.8 % Normal [facility] Comment on above: Performed By: #### Susy GARCIA CMP, 16292-0 #### [facility] ([id number]) [address] [place] [address] Platelet mean volume (Bld) [Entitic vol] 8.5 fL Normal 7-12 [facility] Comment on above: Performed By: #### C RADHA, CMP, 39594-6 #### [facility] ([id number]) [address] [place] [address] Platelets (Bld) [#/Vol] 219 10*3/uL Normal 150-450 [facility] Comment on above: Performed By: #### C BCA, CMP, 12619-7 #### [facility] ([id number]) [address] [facility] [address] [place] [address] RBC COUNT 5.18 X10E12/L Normal 4.10-5.70 [facility] Comment on above: Performed By: #### C BCA, CMP, 08029-4 #### [facility] ([id number]) [address] [facility] [address] [place] [address] WBC (Bld) [#/Vol] 8.8 10*3/uL Normal 4.0-11.0 [facility] Comment on above: Performed By: #### C BCA, CMP, 96957-8 #### [facility] ([id number]) [address], [address] [place] [address] COMPREHENSIVE METABOLIC PANE [place] 09-24-2023 Albumin [Mass/Vol] 3.6 g/dL Normal 3.2-5.3 [facility] Comment on above: Performed By: #### C BCA, CMP, 40194-1 #### [facility] ([id number]) [address], [address] [place] [address] ALP [Catalytic activity/Vol] 48 U/L Normal 39-130 [facility] Comment on above: Performed By: #### C BCA, CMP, 51730-7 #### [facility] ([id number]) [address], [address] [place] [address] ALT [Catalytic activity/Vol] 47 U/L High 0-40 [facility] Comment on above: Performed By: #### C RADHA CMP, 51461-4 #### [facility] ([id number]) [address], [address] [place] [address] Anion gap [Moles/Vol] 8 mmol/L Normal 5-15 [facility] Comment on above: Performed By: #### C RADHA CMP, 76359-8 #### [facility] ([id number]) [address], [address] [place] [address] AST [Catalytic activity/Vol] 27 U/L Normal 0-41 [facility] Comment on above: Performed By: #### C RADHA CMP, 03517-5 #### [facility] ([id number]) [address], [address] [place] [address] Bilirubin [Mass/Vol] 1.0 mg/dL Normal 0.3-1.2 [facility] Comment on above: Performed By: #### C RADHA CMP, 03118-7 #### [facility] ([id number]) [address], [address] [place] [address] Calcium [Mass/Vol] 8.7 mg/dL Normal 8.5-10.5 [facility] Comment on above: Performed By: #### C RADHA CMP, 84418-7 #### [facility] ([id number]) [address], [address] [place] [address] Chloride [Moles/Vol] 99 mmol/L Normal 98-109 [facility] Comment on above: Performed By: #### C BCA, CMP, 23246-4 #### [facility] ([id number]) [address], [address] [place] [address] CO2 [Moles/Vol] 27 mmol/L Normal 22-32 [facility] Comment on above: Performed By: #### C WINSOME GARCIA, 11143-7 #### [facility] ([id number]) [address] [address] [place] [address] Creatinine [Mass/Vol] 0.84 mg/dL Normal 0.60-1.30 [facility] Comment on above: Result Comment: METH OD TRACEABLE TO IDMS STANDARD Performed By: #### C WINSOME GARCIA, 57787-9 #### [facility] ([id number]) [address], [facility] [address] [place] [address] eGFR (CKD-EPI) NON-RACE DEPENDENT >90 Normal >59 [facility] Comment on above: Result Comment: Reported eGFR is based on the CKD-EPI 2020 equation that does not use a race coefficient. Performed By: #### C WINSOME GARCIA, 59813-6 #### [facility] ([id number]) [address] [address] [place] [address] Glucose [Mass/Vol] 124 mg/dL High 65-99 [facility] Comment on above: Performed By: #### C WINSOME GARCIA, 81751-4 #### [facility] ([id number]) [address] [address] [place] [address] Potassium [Moles/Vol] 4.3 mmol/L Normal 3.5-5.0 [facility] Comment on above: Performed By: #### C WINSOME GARCIA, 86898-7 #### [facility] ([id number]) [address] [address] [place] [address] Protein [Mass/Vol] 6.8 g/dL Normal 6.0-8.0 [facility] Comment on above: Performed By: #### C WINSOME GARCIA, 18503-5 #### [facility] ([id number]) [address] [address] [place] [address] Sodium [Moles/Vol] 134 mmol/L Normal 134-146 [facility] Comment on above: Performed By: #### C RADHA CMP, 79410-1 #### [facility] ([id number]) [address], [address] [place] [address] Urea nitrogen [Mass/Vol] 21 mg/dL Normal 5-27 [facility] Comment on above: Performed By: #### Susy GARCIA, CMP, 23282-6 #### [facility] ([id number]) [address], [address] [place] [address] Glucose Glucometer (BldC) [M ass/Vol]on 09-24-2023 Glucose [Mass/Vol] 116 mg/dL High 65-99 [facility] Glucose [Mass/Vol] 137 mg/dL High 65-99 [facility] Glucose [Mass/Vol] 81 mg/dL Normal 65-99 [facility] Glucose [Mass/Vol] 144 mg/dL High 65-99 [facility] MAGNESIUMon 09-24-2023 Magnesium [Mass/Vol] 2.1 mg/dL Normal 1.8-2.6 [facility] Comment on above: Performed By: #### Susy GARCIA CMP, 22782-1 #### [facility] ([id number]) [address], [address] [place] [address] Magnesium [Mass/Vol] 1.9 mg/dL Normal 1.8-2.6 [facility] Comment on above: Performed By: #### Susy GARCIA CMP, 62656-3 #### [facility] ([id number]) [address], [address] [place] [address] CBC AND AUTO DIFFon 09-23-19 24 ABSOLUTE BASOPHIL 0.0 X10E9/L Normal 0.0-0.2 [facility] Comment on above: Performed By: #### Susy GARCIA, CMP, 26864-0 ####[facility] ([id number])[address], [address], [place] [address] ABSOLUTE NEUTROPHIL 6.0 X10E9/L Normal 1.5-6.6 [facility] Comment on above: Performed By: #### C WINSOME GARCIA, ####[facility] ([id number])[address], [address] [place] [address] Basophils/100 WBC (Bld) 0.5 % Normal [facility] Comment on above: Performed By: #### Susy GARCIA CMP, ####[facility] ([id number])[address] [address], [place] [address] Eosinophils (Bld) [#/Vol] 0.3 10*3/uL Normal 0.0-0.4 [facility] Comment on above: Performed By: #### Susy GARCIA CMP, ####[facility] ([id number])[address] [address], [place] [address] Eosinophils/100 WBC (Bld) 2.9 % Normal [facility] Comment on above: Performed By: #### Susy GARCIA [facility], ####[facility] ([id number])[address] [address] [place] [address] Erythrocyte distribution width (RBC) [Ratio] 13.8 % Normal 11.5-15.0 [facility] Comment on above: Performed By: #### Susy GARCIA CMP, ####[facility] ([id number])[address] [address] [place] [address] Hematocrit (Bld) [Volume fraction] 43.9 % Normal 39-49 [facility] Comment on above: Performed By: #### Susy GARCIA CMP, ####[facility] ([id number])[address] [address] [place] [address] Hemoglobin (Bld) [Mass/Vol] 14.8 g/dL Normal 13.0-17.0 [facility] Comment on above: Performed By: #### C RADHA, CMP, ####[facility] ([id number])[address] [address] [place] [address] Lymphocytes (Bld) [#/Vol] 1.7 10*3/uL Normal 1.0-3.5 [facility] Comment on above: Performed By: #### Susy GARCIA, CMP, ####[facility] ([id number])[address], [address] [place] [address] Lymphocytes/100 WBC (Bld) 19.4 % Normal [facility] Comment on above: Performed By: #### Susy GARCIA CMP, ####[facility] ([id number])[address], [address] [place] [address] MCH (RBC) [Entitic mass] 28.7 pg Normal 27-34 [facility] Comment on above: Performed By: #### Susy GARCIA, CMP, ####[facility] ([id number])[address], [address], [place] [address] MCHC (RBC) [Mass/Vol] 33.8 g/dL Normal 32-36 [facility] Comment on above: Performed By: #### Susy GARCIA CMP, ####[facility] ([id number])[address] [address] [place] [address] MCV (RBC) [Entitic vol] 85 fL Normal 80-100 [facility] Comment on above: Performed By: #### Susy GARCIA, CMP, ####[facility] ([id number])[address] [address] [place] [address] Monocytes (Bld) [#/Vol] 0.8 10*3/uL Normal 0-0.9 [facility] Comment on above: Performed By: #### Susy GARCIA, CMP, ####[facility] ([id number])[address], [address], [place] [address] Monocytes/100 WBC (Bld) 9.1 % Normal [facility] Comment on above: Performed By: #### C RADHA, CMP, ####[facility] ([id number])[address], [place] [address] Neutrophils/100 WBC (Bld) 68.1 % Normal [facility] Comment on above: Performed By: #### C RADHA, CMP, ####[facility] ([id number])[address], [address], [place] [address] Platelet mean volume (Bld) [Entitic vol] 8.7 fL Normal 7-12 [facility] Comment on above: Performed By: #### Susy GARCIA, CMP, ####[facility] ([id number])[address] [address], [place] [address] Platelets (Bld) [#/Vol] 214 10*3/uL Normal 150-450 [facility] Comment on above: Performed By: #### Susy GARCIA, CMP, ####[facility] ([id number])[address], [address], [place] [address] RBC COUNT 5.17 X10E12/L Normal 4.10-5.70 [facility] Comment on above: Performed By: #### Susy BCA, CMP, ####[facility] ([id number])[address], [address], [place] [address] WBC (Bld) [#/Vol] 8.8 10*3/uL Normal 4.0-11.0 [facility] Comment on above: Performed By: #### Susy BCA, CMP, ####[facility] ([id number])[address], [place] [address] COMPREHENSIVE METABOLIC PANE Tejas 09-23-2023 Albumin [Mass/Vol] 3.7 g/dL Normal 3.2-5.3 [facility] Comment on above: Performed By: #### C RADHA CMP, 04709-8 #### [facility] ([id number]) [address], [address] [place] [address] ALP [Catalytic activity/Vol] 45 U/L Normal 39-130 [facility] Comment on above: Performed By: #### C RADHA, CMP, 20614-7 #### [facility] ([id number]) [address], [address] [place] [address] ALT [Catalytic activity/Vol] 54 U/L High 0-40 [facility] Comment on above: Performed By: #### Susy GARCIA CMP, 83767-1 #### [facility] ([id number]) [address], [address] [place] [address] Anion gap [Moles/Vol] 10 mmol/L Normal 5-15 [facility] Comment on above: Performed By: #### Susy GARCIA CMP, 69994-4 #### [facility] ([id number]) [address], [address] [place] [address] AST [Catalytic activity/Vol] 34 U/L Normal 0-41 [facility] Comment on above: Performed By: #### Susy GARCIA CMP, 00883-1 #### [facility] ([id number]) [address], [address] [place] [address] Bilirubin [Mass/Vol] 1.0 mg/dL Normal 0.3-1.2 [facility] Comment on above: Performed By: #### C BCA, CMP, 49564-4 #### [facility] ([id number]) [address], [address] [place] [address] Calcium [Mass/Vol] 8.7 mg/dL Normal 8.5-10.5 [facility] Comment on above: Performed By: #### C BCA, CMP, 87825-0 #### [facility] ([id number]) [address], [address] [place] [address] Chloride [Moles/Vol] 101 mmol/L Normal 98-109 [facility] Comment on above: Performed By: #### C RADHA CMP, 22124-4 #### [facility] ([id number]) [address], [address] [place] [address] CO2 [Moles/Vol] 27 mmol/L Normal 22-32 [facility] Comment on above: Performed By: #### C WINSOME GARCIA, 56343-0 #### [facility] ([id number]) [address], [address] [place] [address] Creatinine [Mass/Vol] 0.86 mg/dL Normal 0.60-1.30 [facility] Comment on above: Result Comment: METH OD TRACEABLE TO IDMS STANDARD Performed By: #### C WINSOME GARCIA, 03877-4 #### [facility] ([id number]) [address], [address] [place] [address] GFR/1.73 sq M.predicted among non-blacks MDRD (S/P/Bld) [Vol rate/Area] 90 mL/min/{1.73_m2} Normal >59 [facility] Comment on above: Result Comment: Reported eGFR is based on the CKD-EPI 2020 equation that does not use a race coefficient. Performed By: #### C BCA, CMP, 03701-5 #### [facility] ([id number]) [address], [address] [place] [address] Glucose [Mass/Vol] 122 mg/dL High 65-99 [facility] Comment on above: Performed By: #### C BCA, CMP, 73349-8 #### [facility] ([id number]) [address], [address] [place] [address] Potassium [Moles/Vol] 4.1 mmol/L Normal 3.5-5.0 [facility] Comment on above: Performed By: #### Susy GARCIA CMP, 30719-1 #### [facility] ([id number]) [address], [address] [place] [address] Protein [Mass/Vol] 6.8 g/dL Normal 6.0-8.0 [facility] Comment on above: Performed By: #### C RADHA, CMP, 83099-0 #### [facility] ([id number]) [address], [address] [place] [address] Sodium [Moles/Vol] 138 mmol/L Normal 134-146 [facility] Comment on above: Performed By: #### Susy GARCIA, CMP, 95519-4 #### [facility] ([id number]) [address], [address] [place] [address] Urea nitrogen [Mass/Vol] 23 mg/dL Normal 5-27 [facility] Comment on above: Performed By: #### Susy GARCIA, CMP, 20347-7 #### [facility] ([id number]) [address], [address] [place] [address] MAGNESIUMon 09-23-2023 Magnesium [Mass/Vol] 1.8 mg/dL Normal 1.8-2.6 [facility] Comment on above: Performed By: #### C BCA, CMP, 95029-6 #### [facility] ([id number]) [address], [address] [place] [address] CBC AND AUTO DIFFon 09-22-19 24 ABSOLUTE BASOPHIL 0.1 X10E9/L Normal 0.0-0.2 [facility] Comment on above: Performed By: #### C BCA, CMP, 34609-9 ####[facility] ([id number])[address], [address], [place] [address] ABSOLUTE NEUTROPHIL 7.2 X10E9/L High 1.5-6.6 [facility] Comment on above: Performed By: #### Susy GARCIA CMP, ####[facility] ([id number])[address], [address], [place] [address] Basophils/100 WBC (Bld) 0.5 % Normal [facility] Comment on above: Performed By: #### Susy GARCIA CMP, ####[facility] ([id number])[address], [address] [place] [address] Eosinophils (Bld) [#/Vol] 0.2 10*3/uL Normal 0.0-0.4 [facility] Comment on above: Performed By: #### Susy GARCIA CMP, ####[facility] ([id number])[address] [place] [address] Eosinophils/100 WBC (Bld) 1.8 % Normal [facility] Comment on above: Performed By: #### Susy GARCIA CMP, ####[facility] ([id number])[address] [address] [place] [address] Erythrocyte distribution width (RBC) [Ratio] 13.9 % Normal 11.5-15.0 [facility] Comment on above: Performed By: #### Susy GARCIA CMP, ####[facility] ([id number])[address] [address] [place] [address] Hematocrit (Bld) [Volume fraction] 43.8 % Normal 39-49 [facility] Comment on above: Performed By: #### Susy GARCIA CMP, ####[facility] ([id number])[address] [place] [address] Hemoglobin (Bld) [Mass/Vol] 15.0 g/dL Normal 13.0-17.0 [facility] Comment on above: Performed By: #### Susy GARCIA CMP, ####[facility] ([id number])[address] [place] [address] Lymphocytes (Bld) [#/Vol] 1.6 10*3/uL Normal 1.0-3.5 [facility] Comment on above: Performed By: #### Susy GARCIA CMP, ####[facility] ([id number])[address], [address] [place] [place] [address] Lymphocytes/100 WBC (Bld) 15.7 % Normal [facility] Comment on above: Performed By: #### Susy GARCIA CMP, ####[facility] ([id number])[address] [place] [address] MCH (RBC) [Entitic mass] 29.1 pg Normal 27-34 [facility] Comment on above: Performed By: #### Susy GARCIA CMP, ####[facility] ([id number])[address], [address], [place] [address] MCHC (RBC) [Mass/Vol] 34.1 g/dL Normal 32-36 [facility] Comment on above: Performed By: #### Susy GARCIA CMP, ####[facility] ([id number])[address] [place] [address] MCV (RBC) [Entitic vol] 85 fL Normal 80-100 [facility] Comment on above: Performed By: #### Susy GARCIA CMP, ####[facility] ([id number])[address] [place] [address] Monocytes (Bld) [#/Vol] 1.0 10*3/uL High 0-0.9 [facility] Comment on above: Performed By: #### Susy GARCIA, CMP, ####[facility] ([id number])[address] [place] [address] Monocytes/100 WBC (Bld) 10.1 % Normal [facility] Comment on above: Performed By: #### C BCA, CMP, ####[facility] ([id number])[address] [place] [address] Neutrophils/100 WBC (Bld) 71.9 % Normal [facility] Comment on above: Performed By: #### C BCA, CMP, ####[facility] ([id number])[address] [place] [address] Platelet mean volume (Bld) [Entitic vol] 8.5 fL Normal 7-12 [facility] Comment on above: Performed By: #### Susy BCA, CMP, ####[facility] ([id number])[address] [place] [address] Platelets (Bld) [#/Vol] 239 10*3/uL Normal 150-450 [facility] Comment on above: Performed By: #### C BCA, CMP, ####[facility] ([id number])[address] [place] [address] RBC COUNT 5.15 X10E12/L Normal 4.10-5.70 [facility] Comment on above: Performed By: #### C BCA, CMP, ####[facility] ([id number])[address] [place] [address] WBC (Bld) [#/Vol] 10.0 10*3/uL Normal 4.0-11.0 [facility] Comment on above: Performed By: #### C BCA, CMP, ####[facility] ([id number])[address], [place] [address] COMPREHENSIVE METABOLIC PANE Te[place] 09-22-2023 Albumin [Mass/Vol] 3.8 g/dL Normal 3.2-5.3 [facility] Comment on above: Performed By: #### C BCA, CMP, 62676-1 ####[facility] ([id number])[address], [place] [address] ALP [Catalytic activity/Vol] 49 U/L Normal 39-130 [facility] Comment on above: Performed By: #### C BCA, CMP, ####[facility] ([id number])[address], [place] [address] ALT [Catalytic activity/Vol] 60 U/L High 0-40 [facility] Comment on above: Performed By: #### C BCA, CMP, ####[facility] ([id number])[address], [place] [address] Anion gap [Moles/Vol] 8 mmol/L Normal 5-15 [facility] Comment on above: Performed By: #### C BCA, CMP, ####[facility] ([id number])[address], [place] [address] AST [Catalytic activity/Vol] 51 U/L High 0-41 [facility] Comment on above: Performed By: #### C BCA, CMP, ####[facility] ([id number])[address], [place] [address] Bilirubin [Mass/Vol] 0.7 mg/dL Normal 0.3-1.2 [facility] Comment on above: Performed By: #### C BCA, CMP, ####[facility] ([id number])[address], [place] [address] Calcium [Mass/Vol] 8.8 mg/dL Normal 8.5-10.5 [facility] Comment on above: Performed By: #### C WINSOME GARCIA, 77091-6 ####[facility] ([id number])[address], [place] [address] Chloride [Moles/Vol] 99 mmol/L Normal 98-109 [facility] Comment on above: Performed By: #### C WINSOME GARCIA, ####[facility] ([id number])[address], [place] [address] CO2 [Moles/Vol] 31 mmol/L Normal 22-32 [facility] Comment on above: Performed By: #### C WINSOME GARCIA, ####[facility] ([id number])[address], [place] [address] Creatinine [Mass/Vol] 1.02 mg/dL Normal 0.60-1.30 [facility] Comment on above: Result Comment: METH OD TRACEABLE TO IDMS STANDARD Performed By: #### C WINSOME GARCIA, 95029-6 ####[facility] ([id number])[address], [place] [address] GFR/1.73 sq M.predicted among non-blacks MDRD (S/P/Bld) [Vol rate/Area] 76 mL/min/{1.73_m2} Normal >59 [facility] Comment on above: Result Comment: Reported eGFR is based on the CKD-EPI 2020 equation that does not use a race coefficient. Performed By: #### C WINSOME GARCIA, ####[facility] ([id number])[address], [place] [address] Glucose [Mass/Vol] 127 mg/dL High 65-99 [facility] Comment on above: Performed By: #### C WINSOME GARCIA, ####[facility] ([id number])[address], [place] [address] Potassium [Moles/Vol] 4.3 mmol/L Normal 3.5-5.0 [facility] Comment on above: Performed By: #### C RADHA CMP, 49890-0 ####[facility] ([id number])[address], [place] [address] Protein [Mass/Vol] 7.0 g/dL Normal 6.0-8.0 [facility] Comment on above: Performed By: #### Susy GARCIA CMP, ####[facility] ([id number])[address], [place] [address] Sodium [Moles/Vol] 138 mmol/L Normal 134-146 [facility] Comment on above: Performed By: #### Susy GARCIA CMP, ####[facility] ([id number])[address] [place] [address] Urea nitrogen [Mass/Vol] 30 mg/dL High 5-27 [facility] Comment on above: Performed By: #### Susy GARCIA CMP, ####[facility] ([id number])[address] [place] [address] Glucose Glucometer (BldC) [M ass/Vol]on 09-22-2023 Glucose [Mass/Vol] 119 mg/dL High 65-99 [facility] Glucose [Mass/Vol] 140 mg/dL High 65-99 [facility] MAGNESIUMon 09-22-2023 Magnesium [Mass/Vol] 2.0 mg/dL Normal 1.8-2.6 [facility] Comment on above: Performed By: #### Susy BCA, CMP, ####[facility] ([id number])[address], [address], [place] [address] CBC AND AUTO DIFFon 09-21-19 24 ABSOLUTE BASOPHIL 0.0 X10E9/L Normal 0.0-0.2 [facility] Comment on above: Performed By: #### Susy GARCIA CMP, #### [facility] ([id number]) [address], [address] [place] [address] ABSOLUTE NEUTROPHIL 8.1 X10E9/L High 1.5-6.6 [facility] Comment on above: Performed By: #### Susy GARCIA CMP, #### [facility] ([id number]) [address], [address] [place] [address] Basophils/100 WBC (Bld) 0.4 % Normal [facility] Comment on above: Performed By: #### Susy GARCIA CMP, #### [facility] ([id number]) [address], [address] [place] [address] Eosinophils (Bld) [#/Vol] 0.0 10*3/uL Normal 0.0-0.4 [facility] Comment on above: Performed By: #### Susy GARCIA CMP, #### [facility] ([id number]) [address], [address] [place] [address] Eosinophils/100 WBC (Bld) 0.5 % Normal [facility] Comment on above: Performed By: #### Susy GARCIA CMP, #### [facility] ([id number]) [address], [address] [place] [address] Erythrocyte distribution width (RBC) [Ratio] 13.9 % Normal 11.5-15.0 [facility] Comment on above: Performed By: #### Susy GARCIA CMP, #### [facility] ([id number]) [address], [address] [place] [address] Hematocrit (Bld) [Volume fraction] 43.5 % Normal 39-49 [facility] Comment on above: Performed By: #### C BCA, CMP, 06952-8 #### [facility] ([id number]) [address], [address] [place] [address] Hemoglobin (Bld) [Mass/Vol] 14.7 g/dL Normal 13.0-17.0 [facility] Comment on above: Performed By: #### C RADHA, CMP, #### [facility] ([id number]) [address], [address] [place] [address] Lymphocytes (Bld) [#/Vol] 1.8 10*3/uL Normal 1.0-3.5 [facility] Comment on above: Performed By: #### C RADHA CMP, #### [facility] ([id number]) [address], [address] [place] [address] Lymphocytes/100 WBC (Bld) 16.6 % Normal [facility] Comment on above: Performed By: #### Susy GARCIA, CMP, 23178-6 #### [facility] ([id number]) [address], [address] [place] [address] MCH (RBC) [Entitic mass] 28.6 pg Normal 27-34 [facility] Comment on above: Performed By: #### Susy GARCIA CMP, #### [facility] ([id number]) [address], [address] [place] [address] MCHC (RBC) [Mass/Vol] 33.8 g/dL Normal 32-36 [facility] Comment on above: Performed By: #### C RADHA, CMP, #### [facility] ([id number]) [address], [address] [place] [address] MCV (RBC) [Entitic vol] 85 fL Normal 80-100 [facility] Comment on above: Performed By: #### C BCA, CMP, #### [facility] ([id number]) [address], [address] [place] [address] Monocytes (Bld) [#/Vol] 0.9 10*3/uL Normal 0-0.9 [facility] Comment on above: Performed By: #### C BCA, CMP, #### [facility] ([id number]) [address], [address] [place] [address] Monocytes/100 WBC (Bld) 7.9 % Normal [facility] Comment on above: Performed By: #### C BCA, CMP, #### [facility] ([id number]) [address], [address] [place] [address] Neutrophils/100 WBC (Bld) 74.6 % Normal [facility] Comment on above: Performed By: #### Susy BCA, CMP, #### [facility] ([id number]) [address], [address] [place] [address] Platelet mean volume (Bld) [Entitic vol] 8.3 fL Normal 7-12 [facility] Comment on above: Performed By: #### C BCA, CMP, #### [facility] ([id number]) [address], [address] [place] [address] Platelets (Bld) [#/Vol] 235 10*3/uL Normal 150-450 [facility] Comment on above: Performed By: #### C BCA, CMP, #### [facility] ([id number]) [address], [address] [place] [address] RBC COUNT 5.15 X10E12/L Normal 4.10-5.70 [facility] Comment on above: Performed By: #### C BCA, CMP, #### [facility] ([id number]) [address], [address] [place] [address] WBC (Bld) [#/Vol] 10.8 10*3/uL Normal 4.0-11.0 [facility] Comment on above: Performed By: #### C BCA, CMP, #### [facility] ([id number]) [address], [address] [place] [address] COMPREHENSIVE METABOLIC PANE [place] 09-21-2023 Albumin [Mass/Vol] 4.0 g/dL Normal 3.2-5.3 [facility] Comment on above: Performed By: #### C RADHA, CMP, #### [facility] ([id number]) [address], [address] [place] [address] ALP [Catalytic activity/Vol] 48 U/L Normal 39-130 [facility] Comment on above: Performed By: #### C BCA, CMP, #### [facility] ([id number]) [address], [address] [place] [address] ALT [Catalytic activity/Vol] 36 U/L Normal 0-40 [facility] Comment on above: Performed By: #### C BCA, CMP, #### [facility] ([id number]) [address], [address] [place] [address] Anion gap [Moles/Vol] 11 mmol/L Normal 5-15 [facility] Comment on above: Performed By: #### C BCA, CMP, #### [facility] ([id number]) [address], [address] [place] [address] AST [Catalytic activity/Vol] 37 U/L Normal 0-41 [facility] Comment on above: Performed By: #### C BCA, CMP, #### [facility] ([id number]) [address], [address] [place] [address] Bilirubin [Mass/Vol] 1.0 mg/dL Normal 0.3-1.2 [facility] Comment on above: Performed By: #### C WINSOME GARCIA, #### [facility] ([id number]) [address], [address] [place] [address] Calcium [Mass/Vol] 8.8 mg/dL Normal 8.5-10.5 [facility] Comment on above: Performed By: #### C RADHA CMP, #### [facility] ([id number]) [address], [address] [place] [address] Chloride [Moles/Vol] 99 mmol/L Normal 98-109 [facility] Comment on above: Performed By: #### C WINSOME GARCIA, #### [facility] ([id number]) [address], [address] [place] [address] CO2 [Moles/Vol] 29 mmol/L Normal 22-32 [facility] Comment on above: Performed By: #### C WINSOME GARCIA, #### [facility] ([id number]) [address], [address] [place] [address] Creatinine [Mass/Vol] 0.99 mg/dL Normal 0.60-1.30 [facility] Comment on above: Result Comment: METH OD TRACEABLE TO IDMS STANDARD Performed By: #### C RADHA CMP, #### [facility] ([id number]) [address], [address] [place] [address] GFR/1.73 sq M.predicted among non-blacks MDRD (S/P/Bld) [Vol rate/Area] 79 mL/min/{1.73_m2} Normal >59 [facility] Comment on above: Result Comment: Reported eGFR is based on the CKD-EPI 2020 equation that does not use a race coefficient. Performed By: #### C BCA CMP, #### [facility] ([id number]) [address], [address] [place] [address] Glucose [Mass/Vol] 127 mg/dL High 65-99 [facility] Comment on above: Performed By: #### C BCA, CMP, #### [facility] ([id number]) [address], [address] [place] [address] Potassium [Moles/Vol] 3.8 mmol/L Normal 3.5-5.0 [facility] Comment on above: Performed By: #### C BCA, CMP, #### [facility] ([id number]) [address], [address] [place] [address] Protein [Mass/Vol] 7.2 g/dL Normal 6.0-8.0 [facility] Comment on above: Performed By: #### C BCA, CMP, #### [facility] ([id number]) [address], [address] [place] [address] Sodium [Moles/Vol] 139 mmol/L Normal 134-146 [facility] Comment on above: Performed By: #### C BCA, CMP, #### [facility] ([id number]) [address], [address] [place] [address] Urea nitrogen [Mass/Vol] 34 mg/dL High 5-27 [facility] Comment on above: Performed By: #### C BCA, CMP, #### [facility] ([id number]) [address], [address] [place] [address] HGB A1C (GLYCO-HGB)on 2023 Glucose [Mass/Vol] 137 mg/dL Normal [facility] Comment on above: Performed By: #### C BCA, CMP, ####[facility] ([id number])[address], [address], [place] [address] HbA1c (Bld) [Mass fraction] 6.4 % High 4.4-5.6 [facility] Comment on above: Result Comment: NOTE ADA Guidelines Result HgbA1c Normal : less than 5.7 % Prediabetes : 5.7 % to 6.4 % Diabetes : > 6.4 % Use with caution in patients with abnormal hemoglobin variants as the half-life of red blood cells and in vivo glycation rates are affected. Performed By: #### C RADHA [facility], 97671-7 ####[facility] ([id number])[address] [address] [place] [address] MAGNESIUMon 09-21-2023 Magnesium [Mass/Vol] 2.3 mg/dL Normal 1.8-2.6 [facility] Comment on above: Performed By: #### 1 9123-9 ####[facility] ([id number])[address] [address] [place] [address] Magnesium [Mass/Vol] 1.8 mg/dL Normal 1.8-2.6 [facility] Comment on above: Performed By: #### C RADHA, [facility], 81974-4 ####[facility] ([id number])[address] [address] [place] [address] URINALYSISon 09-21-2023 Bilirubin Ql (U) Negative Normal NEG [facility] Comment on above: Performed By: #### U A ####[facility] ([id number])[address] [address] [place] [address] BLOOD/HGB Negative Normal NEG [facility] Comment on above: Performed By: #### U A ####[facility] ([id number])[address] [address], [place] [address] Color (U) YELLOW Normal YELLOW [facility] Comment on above: Performed By: #### U A ####[facility] ([id number])[address], [address] [place] [address] Glucose Ql (U) Negative Normal NEG [facility] Comment on above: Performed By: #### U A ####[facility] ([id number])[address], [address] [place] [address] Ketones Ql (U) Negative Normal NEG [facility] Comment on above: Performed By: #### U A ####[facility] ([id number])[address], [address] [place] [address] Leukocyte esterase Test strip Ql (U) Negative Normal NEG [facility] Comment on above: Performed By: #### U A ####[facility] ([id number])[address], [address] [place] [address] MUCOUS PRESENT Abnormal NONE [facility] Comment on above: Performed By: #### U A ####[facility] ([id number])[address], [address] [place] [address] Nitrite Ql (U) Negative Normal NEG [facility] Comment on above: Performed By: #### U A ####[facility] ([id number])[address], [address] [place] [address] pH (U) 6.0 [pH] Normal 5.0-8.5 [facility] Comment on above: Performed By: #### U A ####[facility] ([id number])[address], [address] [place] [address] Protein Ql (U) Trace Abnormal NEG [facility] Comment on above: Performed By: #### U A ####[facility] ([id number])[address], [address] [place] [address] R.B.CELLS 3 /hpf Normal 0-5 [facility] Comment on above: Performed By: #### U A ####[facility] ([id number])[address] [address] Specific gravity (U) [Rel density] 1.023 Normal 1.003-1.03 5 [facility] Comment on above: Performed By: #### U A ####[facility] ([id number])[address] [address] TURBIDITY CLEAR Normal CLEAR [facility] Comment on above: Performed By: #### U A ####[facility] ([id number])[address] [address] Urinalysis dipstick W Reflex Microscopic panel (U) URINE RECEIVED WITHOUT PRESERVATIVE-DELAYS IN TRANSPORT MAY AFFECT RESULTS.INTERPRET WITH CAUTION AND CLINICAL CORRELATION IS RECOMMENDED. Normal [facility] Comment on above: Performed By: #### U A ####[facility] ([id number])[address] [address] Urobilinogen (U) [Mass/Vol] mg/dL Normal <1.1 [facility] Comment on above: Performed By: #### U A ####[facility] ([id number])[address] [address] W.B.CELLS 2 /hpf Normal 0-5 [facility] Comment on above: Performed By: #### U A ####[facility] ([id number])[address] [address] CBC AND AUTO DIFFon 09-20-19 24 ABSOLUTE BASOPHIL 0.1 X10E9/L Normal 0.0-0.2 [facility] Comment on above: Performed By: #### C BCA, CMP, 43535-1 #### [facility] ([id number]) [address] [place] [address] ABSOLUTE NEUTROPHIL 11.3 X10E9/L High 1.5-6.6 [facility] Comment on above: Performed By: #### Susy GARCIA CMP, 38817-3 #### [facility] ([id number]) [address], [address] [place] [address] Basophils/100 WBC (Bld) 0.5 % Normal [facility] Comment on above: Performed By: #### Susy GARCIA CMP, 36444-3 #### [facility] ([id number]) [address], [address] [place] [address] Eosinophils (Bld) [#/Vol] 0.0 10*3/uL Normal 0.0-0.4 [facility] Comment on above: Performed By: #### Susy GARCIA CMP, 72208-6 #### [facility] ([id number]) [address], [address] [place] [address] Eosinophils/100 WBC (Bld) 0.0 % Normal [facility] Comment on above: Performed By: #### Susy GARCIA CMP, 97243-0 #### [facility] ([id number]) [address], [address] [place] [address] Erythrocyte distribution width (RBC) [Ratio] 13.8 % Normal 11.5-15.0 [facility] Comment on above: Performed By: #### Susy GARCIA CMP, 29413-5 #### [facility] ([id number]) [address], [address] [place] [address] Hematocrit (Bld) [Volume fraction] 45.3 % Normal 39-49 [facility] Comment on above: Performed By: #### Susy GARCIA CMP, 25585-1 #### [facility] ([id number]) [address], [address] [place] [address] Hemoglobin (Bld) [Mass/Vol] 15.3 g/dL Normal 13.0-17.0 [facility] Comment on above: Performed By: #### Susy GARCIA CMP, 85368-0 #### [facility] ([id number]) [address], [address] [place] [address] Lymphocytes (Bld) [#/Vol] 0.5 10*3/uL Low 1.0-3.5 [facility] Comment on above: Performed By: #### Susy GARCIA CMP, 24978-1 #### [facility] ([id number]) [address], [address] [place] [address] Lymphocytes/100 WBC (Bld) 4.2 % Normal [facility] Comment on above: Performed By: #### Susy GARCIA CMP, 80933-1 #### [facility] ([id number]) [address], [address] [place] [address] MCH (RBC) [Entitic mass] 28.5 pg Normal 27-34 [facility] Comment on above: Performed By: #### Susy GARCIA CMP, 81520-8 #### [facility] ([id number]) [address], [address] [place] [address] MCHC (RBC) [Mass/Vol] 33.7 g/dL Normal 32-36 [facility] Comment on above: Performed By: #### Susy GARCIA CMP, 10401-8 #### [facility] ([id number]) [address], [address] [place] [address] MCV (RBC) [Entitic vol] 85 fL Normal 80-100 [facility] Comment on above: Performed By: #### Susy GARCIA CMP, 37416-7 #### [facility] ([id number]) [address], [address] [place] [address] Monocytes (Bld) [#/Vol] 0.4 10*3/uL Normal 0-0.9 [facility] Comment on above: Performed By: #### C RADHA, CMP, 90200-5 #### [facility] ([id number]) [address], [address] [place] [address] Monocytes/100 WBC (Bld) 3.0 % Normal [facility] Comment on above: Performed By: #### C BCA, CMP, 58481-2 #### [facility] ([id number]) [address], [address] [place] [address] Neutrophils/100 WBC (Bld) 92.3 % Normal [facility] Comment on above: Performed By: #### C RADHA, CMP, 08999-4 #### [facility] ([id number]) [address] [place] [address] Platelet mean volume (Bld) [Entitic vol] 8.2 fL Normal 7-12 [facility] Comment on above: Performed By: #### Susy GARCIA, CMP, 06699-7 #### [facility] ([id number]) [address], [address] [place] [address] Platelets (Bld) [#/Vol] 262 10*3/uL Normal 150-450 [facility] Comment on above: Performed By: #### Susy GARCIA, CMP, 94671-9 #### [facility] ([id number]) [address], [address] [place] [address] RBC COUNT 5.35 X10E12/L Normal 4.10-5.70 [facility] Comment on above: Performed By: #### C BCA, CMP, 92715-5 #### [facility] ([id number]) [address], [address] [place] [address] WBC (Bld) [#/Vol] 12.2 10*3/uL High 4.0-11.0 [facility] Comment on above: Performed By: #### C BCA, CMP, 68171-0 #### [facility] ([id number]) [address], [address] [place] [address] COMPREHENSIVE METABOLIC PANE [place] 09-20-2023 Albumin [Mass/Vol] 4.1 g/dL Normal 3.2-5.3 [facility] Comment on above: Performed By: #### C BCA, CMP, 80458-4 #### [facility] ([id number]) [address], [address] [place] [address] ALP [Catalytic activity/Vol] 46 U/L Normal 39-130 [facility] Comment on above: Performed By: #### C BCA, CMP, 64801-5 #### [facility] ([id number]) [address], [address] [place] [address] ALT [Catalytic activity/Vol] 16 U/L Normal 0-40 [facility] Comment on above: Performed By: #### C BCA, CMP, 51519-1 #### [facility] ([id number]) [address], [address] [place] [address] Anion gap [Moles/Vol] 10 mmol/L Normal 5-15 [facility] Comment on above: Performed By: #### C BCA, CMP, 50618-6 #### [facility] ([id number]) [address], [address] [place] [address] AST [Catalytic activity/Vol] 21 U/L Normal 0-41 [facility] Comment on above: Performed By: #### C BCA, CMP, 63449-5 #### [facility] ([id number]) [address], [address] [place] [address] Bilirubin [Mass/Vol] 0.8 mg/dL Normal 0.3-1.2 [facility] Comment on above: Performed By: #### C BCA, CMP, 65310-1 #### [facility] ([id number]) [address] [place] [address] Calcium [Mass/Vol] 9.4 mg/dL Normal 8.5-10.5 [facility] Comment on above: Performed By: #### C WINSOME GARCIA, 29093-5 #### [facility] ([id number]) [address] [place] [address] Chloride [Moles/Vol] 101 mmol/L Normal 98-109 [facility] Comment on above: Performed By: #### C WINSOME GARCIA, 93643-7 #### [facility] ([id number]) [address] [place] [address] CO2 [Moles/Vol] 28 mmol/L Normal 22-32 [facility] Comment on above: Performed By: #### C WINSOME GARCIA, 77501-7 #### [facility] ([id number]) [address] [place] [address] Creatinine [Mass/Vol] 1.03 mg/dL Normal 0.60-1.30 [facility] Comment on above: Result Comment: METH OD TRACEABLE TO IDMS STANDARD Performed By: #### C WINSOME GARCIA, 69815-7 #### [facility] ([id number]) [address] [place] [address] GFR/1.73 sq M.predicted among non-blacks MDRD (S/P/Bld) [Vol rate/Area] 75 mL/min/{1.73_m2} Normal >59 [facility] Comment on above: Result Comment: Reported eGFR is based on the CKD-EPI 2020 equation that does not use a race coefficient. Performed By: #### C WINSOME GARCIA, 18215-0 #### [facility] ([id number]) [address] [place] [address] Glucose [Mass/Vol] 156 mg/dL High 65-99 [facility] Comment on above: Performed By: #### C WINSOME GARCIA, 00232-8 #### [facility] ([id number]) [address] [place] [address] Potassium [Moles/Vol] 4.5 mmol/L Normal 3.5-5.0 [facility] Comment on above: Performed By: #### Susy GARCIA CMP, 84122-2 #### [facility] ([id number]) [address] [place] [address] Protein [Mass/Vol] 7.4 g/dL Normal 6.0-8.0 [facility] Comment on above: Performed By: #### Susy GARCIA CMP, 00828-1 #### [facility] ([id number]) [address] [place] [address] Sodium [Moles/Vol] 139 mmol/L Normal 134-146 [facility] Comment on above: Performed By: #### Susy GARCIA CMP, 71057-0 #### [facility] ([id number]) [address] [place] [address] Urea nitrogen [Mass/Vol] 28 mg/dL High 5-27 [facility] Comment on above: Performed By: #### Susy GARCIA CMP, 89746-0 #### [facility] ([id number]) [address] [place] [address] Glucose Glucometer (BldC) [M ass/Vol]on 09-20-2023 Glucose [Mass/Vol] 150 mg/dL High 65-99 [facility] Glucose [Mass/Vol] 208 mg/dL High 65-99 [facility] Lipid 1996 panelon Cholesterol [Mass/Vol] 183 mg/dL Normal 150-200 [facility] Comment on above: Performed By: #### C RADHA, CMP, 32988-1 #### [facility] ([id number]) [address] [place] [address] Cholesterol in HDL [Mass/Vol] 36 mg/dL Low >39 [facility] Comment on above: Result Comment: HDL <40 mg/dL - High Risk HDL > or = 40mg/dL- Desirable HDL >60 mg/dL - Negative Risk Performed By: #### C BCA, CMP, 72606-8 #### [facility] ([id number]) [address] [place] [address] Cholesterol in LDL [Mass/Vol] 123 mg/dL Normal <130 [facility] Comment on above: Result Comment: LDL <100 mg/dL - Desirable LDL >160 mg/dL - High Risk Performed By: #### C BCA, CMP, 50402-1 #### [facility] ([id number]) [address] [place] [address] Cholesterol in VLDL [Mass/Vol] 24 mg/dL Normal 0-30 [facility] Comment on above: Performed By: #### C BCA, CMP, 02307-6 #### [facility] ([id number]) [address] [place] [address] CHOLESTEROL:HDL 5.1 High 1.0-5.0 [facility] Comment on above: Performed By: #### C BCA, CMP, 03142-9 #### [facility] ([id number]) [address] [place] [address] Triglyceride [Mass/Vol] 122 mg/dL Normal 27-150 [facility] Comment on above: Performed By: #### C BCA, CMP, 25765-0 #### [facility] ([id number]) [address] [place] [address] MR BRAIN W WO CONTon 024 MR [...] Pryor MD on 09/20/2023 5:10 AM Normal [facility] PROTIME AND INRon 09-20-2023 INR Coag (PPP) [Relative time] 1.1 {INR} Normal 0.8-1.1 [facility] Comment on above: Performed By: #### P INR, 22662-1 #### [facility] ([id number]) [address] [facility] [place] [address] PT Coag (PPP) [Time] 12.5 s Normal 9.8-13.2 [facility] Comment on above: Performed By: #### P INR, 42049-3 #### [facility] ([id number]) [address] [facility] [place] [address] aPTT Coag (PPP) [Time]on aPTT Coag (Bld) [Time] 44 s High 26-37 [facility] Comment on above: Performed By: #### P INR, 40814-3 #### [facility] ([id number]) [address] [facility], [address] [place] [address] Office Visit (Cardiology)on 05-04-2023 Follow-up visit Diagnoses/Problems Assessed Atherosclerosis of coronary artery of [place] heart with angina pectoris (414.01,413.9) (I25.119) Hypertension (401.9) (I10) Hyperlipidemia (272.4) (E78.5) History of PTCA 2 (V45.82) (Z98.61) History of myocardial infarction (412) (I25.2) History of CVA (cerebrovascular accident) (V12.54) (Z86.73) H/O carotid endarterectomy (V45.89) (Z98.890) Overweight with body mass index (BMI) of 25 to 25.9 in adult (278.02,V85.21) (E66.3,Z68.25) Orders Atherosclerosis of coronary artery of [place] heart with angina pectoris Renew: Aspirin 81 MG Oral Tablet Delayed Release; TAKE 1 TABLET DAILY Atherosclerosis of coronary artery of [place] heart with angina pectoris, Hyperlipidemia, Hypertension ALT - Alanine Aminotransferase, Serum; Status:Active - Retrospective Authorization; Requested for:[id number]; AST; Status:Active - Retrospective Authorization; Requested for:[id number]; Lipid Panel; Status:Active - Retrospective Authorization; Requested for:[id number]; Atherosclerosis of coronary artery of [place] heart with angina pectoris, Hypertension Renew: Metoprolol Tartrate 25 MG Oral Tablet; Take 1/2 tablet two times daily Hyperlipidemia Renew: Simvastatin 40 MG Oral Tablet; TAKE 1 TABLET AT BEDTIME Overweight with body mass index (BMI) of 25 to 25.9 in adult Healthy Weight Tips; Status:Complete - Retrospective Authorization; Done: [id number] Some eating tips that can help you [...] Recorded: 04May2023 10:26AM Heart Rate62, R Radial [id number], RUE, Sitting Ghfhxahkv83, RUE, Sitting Height5 ft 11 in Qpckjt127 lb BMI Htfsyrylse18.8 kg/m2 BSA Calculated2.04 Tobacco Useb) No PHQ-2 [...] EST (Aut (more content not included)... Normal [employer] [place] carotid doppler BIon 05-0 [place] carotid doppler BI [facility] [place] [address] [place] [address] Ultrasound Report Signed Patient: Janice Shultz MR#: [id number] 7 : 1945 Acct:[id number] Age/Sex: 77 / M ADM Date: 12/12/22 Loc: [facility] Room: Type: [facility] Attending Dr: Trinh Bailey SPOUT WORKER-C Ordering Provider: Trinh Bailey APRN Date of [...] Keny Ayala M.D.12/12/2022 1:25 PM Dictation Location: [place] [address] Tech: Mindy Baughjesus Transcribed By: NAINA 12/12/22 1325 Dictated By: Keny Ayala MD 12/12/22 1324 Signed By: 12/12/22 1325 [facility] Tobacco Screening.on 022 Adult depression screening assessment No -[facility]-Sandu laury 250 DO Work Phone: Fall risk assessment b) One or more fall s in the last year [facility] Shopnlistmagi Cashually DO Work Phone: Tobacco use status CPHS b) No [facility] Shopnlistmagi laury Joelle DO Work Phone: XR SHOULDER [...] Luz MOLINA Date: 2022-02-04 19:02 Normal [facility] CBC AUTO DIFFon 09-13-2021 BASO # 0.1 103/ul Normal 0.0-0.1 [facility] Comment on above: Performed By: #### C BC #### [facility] [address] [place] [address] Dr. Kentrell Clement Basophils/100 WBC (Bld) 0.9 % Normal 0.2-2.0 [facility] Comment on above: Performed By: #### C BC #### [facility] [address] [place] [address] Dr. Kentrell Clement EO # 0.5 103/ul Normal 0.0-0.7 [facility] Comment on above: Performed By: #### C BC #### [facility] [address] [place] [address] Dr. Kentrell Clement Eosinophils/100 WBC (Bld) 6.5 % Normal 0.9-7.0 [facility] Comment on above: Performed By: #### C BC #### [facility] [address] [place] [address] Dr. Kentrell Clement Erythrocyte distribution width (RBC) [Ratio] 12.8 % Normal 11.0-15.0 [facility] Comment on above: Performed By: #### C BC #### [facility] [address] [place] [address] Dr. Kentrell Clement Hematocrit (Bld) [Volume fraction] 48.9 % Normal 42.0-54.0 [facility] Comment on above: Performed By: #### C BC #### [facility] [address] [place] [address] Dr. Kentrell Clement Hemoglobin (Bld) [Mass/Vol] 15.7 g/dL Normal 14.0-18.0 [facility] Comment on above: Performed By: #### C BC #### [facility] [address] [place] [address] Dr. Kentrell Clement IG # 0.03 10e3/ul Normal 0.00-0.03 [facility] Comment on above: Performed By: #### C BC #### [facility] [address] [place] [address] Dr. Kentrell Clement IG % 0.4 % Normal 0.0-0.5 [facility] Comment on above: Performed By: #### C BC #### [facility] [address] [place] [address] Dr. Kentrell Clement LYMPH # 1.4 103/ul Normal 1.2-3.8 [facility] Comment on above: Performed By: #### C BC #### [facility] [address] [place] [address] Dr. Kentrell Clement Lymphocytes/100 WBC (Bld) 18.2 % Critically low 20.5-60.0 [facility] Comment on above: Performed By: #### C BC #### [facility] [address] [place] [address] Dr. Kentrell Clement MANUAL DIFF REQ NO Normal [facility] Comment on above: Performed By: #### C BC #### [facility] [address] [place] [address] Dr. Kentrell Clement MCH (RBC) [Entitic mass] 27.8 pg Normal 25.9-34.0 [facility] Comment on above: Performed By: #### C BC #### [facility] [address] [place] [address] Dr. Kentrell Clement MCHC (RBC) [Mass/Vol] 32.1 g/dL Normal 29.9-35.2 [facility] Comment on above: Performed By: #### C BC #### [facility] [address] [place] [address] Dr. Kentrell Clement MCV (RBC) [Entitic vol] 86.5 fL Normal 80.0-94.0 [facility] Comment on above: Performed By: #### C BC #### [facility] [address] [place] [address] Dr. Kentrell Clement MONO # 0.6 103/ul Normal 0.3-0.8 [facility] Comment on above: Performed By: #### C BC #### [facility] [address] [place] [address] Dr. Kentrell Clement Monocytes/100 WBC (Bld) 7.9 % Normal 1.7-12.0 [facility] Comment on above: Performed By: #### C BC #### [facility] [address] [place] [address] Dr. Kentrell Clement NEUT # 5.2 103/ul Normal 1.4-6.5 [facility] Comment on above: Performed By: #### C BC #### [facility] [address] [place] [address] Dr. Kentrell Clement Neutrophils/100 WBC (Bld) 66.1 % Normal 43.0-75.0 [facility] Comment on above: Performed By: #### C BC #### [facility] [address] [place] [address] Dr. Kentrell Clement Platelet mean volume (Bld) [Entitic vol] 9.9 fL Normal 9.5-13.5 [facility] Comment on above: Performed By: #### C BC #### [facility] [address] [place] [address] Dr. Kentrell Clement PLT 249 103/ul Normal 150-450 [facility] Comment on above: Performed By: #### C BC #### [facility] [address] [place] [address] Dr. Kentrell Clement RBC 5.65 106/ul Normal 4.70-6.10 [facility] Comment on above: Performed By: #### C BC #### [facility] [address] [place] [address] Dr. Kentrell Clement WBC 7.8 103/ul Normal 4.0-11.0 [facility] Comment on above: Performed By: #### C BC #### [facility] [address] [place] [address] Dr. Kentrell Clement LIPASEon 09-13-2021 Lipase [Catalytic activity/Vol] 168.0 U/L Normal 23.0-300.0 [facility] Comment on above: Performed By: #### H STROPN, LIPA, CMP #### [facility] [address] [place] [address] Dr. Kentrell Clement PROF 14(COMP METB)on 022 Albumin [Mass/Vol] 4.3 g/dL Normal 3.5-5.0 [facility] Comment on above: Performed By: #### H STROPN, LIPA, CMP #### [facility] [address] [place] [address] Dr. Kentrell Clement Albumin/Globulin [Mass ratio] 1.0 {ratio} Normal [facility] Comment on above: Performed By: #### H STROPN, LIPA, CMP #### [facility] [address] [place] [address] Dr. Kentrell Clement ALP [Catalytic activity/Vol] 52 U/L Normal 38-126 [facility] Comment on above: Performed By: #### H STROPN, LIPA, CMP #### [facility] [address] [place] [address] Dr. Kentrell Clement ALT [Catalytic activity/Vol] 27 U/L Normal 21-72 [facility] Comment on above: Performed By: #### H STROPN, LIPA, CMP #### [facility] [address] [place] [address] [address] Kentrell Clement Anion gap [Moles/Vol] 9.7 mmol/L Normal [facility] Comment on above: Performed By: #### H STROPN, LIPA, CMP #### [facility] [address] [place] [address] Dr. Kentrell Clement AST [Catalytic activity/Vol] 17 U/L Normal 17-59 [facility] Comment on above: Performed By: #### H STROPN, LIPA, CMP #### [facility] [address] [place] [address] Dr. Kentrell Clement Bilirubin [Mass/Vol] 0.6 mg/dL Normal 0.2-1.3 [facility] Comment on above: Performed By: #### H STROPN, LIPA, CMP #### [facility] [address] [place] [address] Dr. Kentrell Clement Calcium [Mass/Vol] 9.6 mg/dL Normal 8.4-10.2 [facility] Comment on above: Performed By: #### H STROPN, LIPA, CMP #### [facility] [address] [place] [address] Dr. Kentrell Clement Chloride [Moles/Vol] 102 mmol/L Normal 98-107 [facility] Comment on above: Performed By: #### H STROPN, LIPA, CMP #### [facility] [address] [place] [address] Dr. Kentrell Clement CO2 [Moles/Vol] 28.3 mmol/L Normal 22.0-30.0 [facility] Comment on above: Performed By: #### H STROPN, LIPA, CMP #### [facility] [address] [place] [address] [address] Kentrell Clement Creatinine [Mass/Vol] 1.20 mg/dL Normal 0.66-1.25 [facility] Comment on above: Performed By: #### H STROPN, LIPA, CMP #### [facility] [address] [place] [address] [address] Kentrell Clement EGFR-AF GEORGIAN >60 Normal >=60 [facility] Comment on above: Performed By: #### H STROPN, LIPA, CMP #### [facility] [address] [place] [address] [address] Kentrell Clement EGFR-NON AF GEORGIAN 59 mL/min/1.73m2 Critically low >=60 [facility] Comment on above: Performed By: #### H STROPN, LIPA, CMP #### [facility] [address] [place] [address] [address] Kentrell Clement Globulin (S) [Mass/Vol] 4.3 g/dL Normal [facility] Comment on above: Performed By: #### H STROPN, LIPA, CMP #### [facility] [address] [place] [address] [address] Kentrell Clement Glucose [Mass/Vol] 149 mg/dL Critically high 74-106 [facility] Comment on above: Performed By: #### H STROPN, LIPA, CMP #### [facility] [address] [place] [address] Dr. Kentrell Clement Potassium [Moles/Vol] 4.0 mmol/L Normal 3.4-5.0 [facility] Comment on above: Performed By: #### H STROPN, LIPA, CMP #### [facility] [address] [place] [address] [address] Kentrell Clement Protein [Mass/Vol] 8.6 g/dL Critically high 6.1-8.2 [facility] Comment on above: Performed By: #### H STROPN, LIPA, CMP #### [facility] [address] [place] [address] Dr. Kentrell Clement Sodium [Moles/Vol] 136 mmol/L Critically low 137-145 [facility] Comment on above: Performed By: #### H STROPN, LIPA, CMP #### [facility] [address] [place] [address] Dr. Kentrell Clement Urea nitrogen [Mass/Vol] 21.0 mg/dL Critically high 9.0-20.0 [facility] Comment on above: Performed By: #### H GOLDEN PETERSON, CMP #### [facility] [address] [place] [address] [address] Kentrell Clement Urea nitrogen/Creatinine [Mass ratio] 17.5 mg/mg Normal [facility] Comment on above: Performed By: #### H GOLDEN PETERSON, CMP #### [facility] [address] [place] [address] [address] Kentrell Clement TROPONIN, HIGH SENSITIVITYon 09-13-2021 HSTROP 12.6 pg/mL Normal 4.0-42.2 [facility] Comment on above: Result Comment: CUT- OFF POINTS HAVE BEEN ESTABLISHED BASED ON THE FOURTH UNIVERSAL DEFINITIONS OF MYOCARDIAL INFARCTION. THE UPPER REFERENCE LIMIT (URL) OF TROPONIN, DEFINED THE 99TH PERCENTILE OF cTnI DISTRIBUTION IN A REFERENCE POPULATION, HAS BEEN CONFIRMED THE DECISION THRESHOLD FOR [place] DIAGNOSIS. Performed By: #### H NICHOLAS #### [facility] [address] [place] [address] [address] Kentrell Clement HSTROP 12.4 pg/mL Normal 4.0-42.2 [facility] Comment on above: Result Comment: CUT- OFF POINTS HAVE BEEN ESTABLISHED BASED ON THE FOURTH UNIVERSAL DEFINITIONS OF MYOCARDIAL INFARCTION. THE UPPER REFERENCE LIMIT (URL) OF TROPONIN, DEFINED THE 99TH PERCENTILE OF cTnI DISTRIBUTION IN A REFERENCE POPULATION, HAS BEEN CONFIRMED THE DECISION THRESHOLD FOR [place] DIAGNOSIS. Performed By: #### H GOLDEN PETERSON, CMP #### [facility] [address] [place] [address] [address] Kentrell Clement XR CHEST 2 Von [...] SHERIF TREADWELL Date: 2021-09-13 09:51 Normal [facility] CARDIAC STRESS/REST INJE CTIONon 05-17-2021 [facility] CARDIAC STRESS/REST INJECTION Patient Name: JANICE SHULTZ STUDY: MYOCARDIAL PERFUSION STRESS TEST WITH EXERCISE CONVERTED TO LEXISCAN Performing facility: [facility], [address] [place] [address], [address], [address] Provider: Devika Evangelista DO, FACC PCP: Dr. Reyna Paredes Supervising provider: Devika Evangelista DO, FACC INDICATION: CAD with angina Fatigue HISTORY: Gender: M; Age: 76 y/o ; Height: 180.34 cm; Weight: 85.9332237 kg. High Cholesterol; Previous [place]; HTN; Fatigue; Denies smoking. Cardiac catheterization on 2014. PTCA on 2014. COMPARISON: No comparison. ACCESSION NUMBER(S): [id number]; [id number]; [id number] ORDERING CLINICIAN: [place] TECHNIQUE: ONE DAY [...] Electronically signed by: JAYLEN FERRARI MD Normal [facility] No Panel Informationon 05-17 Normal -[facility]Sandu laury 250 DO Work Phone: BASIC METABOLIC PANELon 01-11 Anion gap 8 mmol/L Normal - [facility] Comment on above: Performed By: #### L AB15 ####[facility] [id number] [place] [id number] [facility]#### [id number] ####[facility] [id number] [place] [address] [facility] [place], [place] [phone] BASIC METABOLIC PANEL Normal [facility] Comment on above: Result Comment: Slig htly hemolyzed. Hemolysis may affect this result. Specimen may be redrawn at the discretion of ordering physician. Performed By: #### L AB15 ####[facility] [id number] [place] [address] [place]#### [id number] ####[facility] [id number] [place] [address] [facility], [place] [phone] BUN (urea nitrogen) 14 mg/dL Normal 7-[address] [facility] Comment on above: Performed By: #### L AB15 ####[facility] [id number] [place] [address] [place]#### [id number] ####[facility] [id number] [place] [address] [facility] [place] [id number], [place] [phone] Calcium 8.0 mg/dL Abnormal 8.5-10.1 [facility] Comment on above: Performed By: #### L AB15 ####[facility] [id number] [place] [address] [place]#### [id number] ####[facility] [id number] [place] [address] [facility] [place] [id number], [place] [phone] Chloride 109 mmol/L Abnormal 98-107 [facility] Comment on above: Performed By: #### L AB15 ####[facility] [id number] [place] [address] [place]#### [id number] ####[facility] [id number] [place] [address] [facility] [place] [id number], [place] [phone] CO2 28 mmol/L Normal 21-32 [facility] Comment on above: Performed By: #### L AB15 ####[facility] CLIA [id number] [place] [address] [place]#### [id number] ####[facility] CLIA [id number] [place] [address] [facility], [place] [address] Creatinine 0.9 mg/dL Normal 0.60-1.3 [facility] Comment on above: Performed By: #### L AB15 ####[facility] CLIA [id number] [place] [address] [place]#### [id number] ####[facility] [id number] [place] [address] [facility], [place] [address] eGFR (black) mL/min/{1.73_m2} Normal >60 [facility] Comment on above: Result Comment: GFR is estimated using creatinine, age, gender, and race. Patient's values should be interpreted as a trend. For additional information: [email or web address] Performed By: #### L AB15 ####[facility] CLIA [id number] [place] [address] [place]#### [id number] ####[facility] CLIA [id number] [place] [address] [facility], [place] [address] eGFR (non-black) mL/min/{1.73_m2} Normal >60 [facility] Comment on above: Result Comment: GFR is estimated using creatinine, age, gender, and race. Patient's values should be interpreted as a trend. For additional information: [email or web address] Performed By: #### L AB15 ####[facility] [id number] [place] [address] [place]#### [id number] ####[facility] [id number] [place] [address] [facility] [place] [id number], [phone] Glucose mass conc 114 mg/dL Abnormal 74-106 [facility] Comment on above: Performed By: #### L AB15 ####[facility] [id number] [place] [address] [place]#### [id number] ####[facility] [place] [id number] [place] [address] [facility] [place] [id number], [phone] Potassium molar conc 4.1 mmol/L Normal 3.5-5.1 [facility] Comment on above: Performed By: #### L AB15 ####[facility] [id number] [place] [address] [place]#### [id number] ####[facility] [id number] [place] [address] [place] [place] [id number], [phone] Sodium 145 mmol/L Normal 136-145 [facility] Comment on above: Performed By: #### L AB15 ####[facility] [id number] [place] [address] [place]#### [id number] ####[facility] [id number] [place] [address] [facility], [phone] CBC W/DIFFon 01-23-2018 Basophils/100 WBC Auto (Bld) 1.1 % Normal [facility] Comment on above: Performed By: #### L AB15 ####[facility] [id number] [place] [address], [facility] [place]#### [id number] ####[facility] [id number] [address] [address], [address] AND [place] [id number], [phone] BSA (Body Surface Area) 0.1 K/uL Normal 0.0-0.1 [facility] Comment on above: Performed By: #### L AB15 ####[facility] [id number] [place] [address], [facility]31 [place]#### [id number] ####[facility] [id number] [place] [address], [address] [place] [id number], [place] [phone] Eosinophils 0.4 10*3/uL Normal 0.0-0.4 [facility] Comment on above: Performed By: #### L AB15 ####[facility] [id number] [address], [place] [address] [place]#### [id number] ####[facility] [id number] [place] [address], [address] AND [place] [id number], [phone] Eosinophils 8.2 10*3/uL Normal [facility] Comment on above: Performed By: #### L AB15 ####[facility] [id number] [place] [address] [place]#### [id number] ####[facility] [id number] [place] [address], [place] [phone] Erythrocyte distribution width Auto Ratio (RBC) 13.2 % Normal 11.7-15.2 [facility] Comment on above: Performed By: #### L AB15 ####[facility] [id number] [place] [address] [place]#### [id number] ####[facility] [id number] [place] [address] [facility], [place] [address] Erythrocytes (RBC) 5.32 10*6/uL Normal 4.30-5.86 [facility] Comment on above: Performed By: #### L AB15 ####[facility] [id number] [place] [address] [place]#### [id number] ####[facility] [id number] [place] [address] [facility], [place] [address] Hematocrit (HCT) 45.5 % Normal 39.0-51.5 [facility] Comment on above: Performed By: #### L AB15 ####[facility] [id number] [place] [address] [place]#### [id number] ####[facility] [id number] [place] [address] [facility], [place] [phone] Hemoglobin mass conc (Bld) 15.3 g/dL Normal 13.1-17.6 [facility] Comment on above: Performed By: #### L AB15 ####[facility] [place] [id number] [place] [address] [place]#### [id number] ####[facility] [place] [id number] [place] [address] [facility] [place] [id number], [phone] Lymphocytes 22.0 10*3/uL Normal [facility] Comment on above: Performed By: #### L AB15 ####[facility] [id number] [place] [address] [place]#### [id number] ####[facility] [place] [id number] [place] [address] [facility] [place] [id number], [phone] Lymphocytes 1.1 10*3/uL Normal 0.8-3.6 [facility] Comment on above: Performed By: #### L AB15 ####[facility] [id number] [place] [address] [place]#### [id number] ####[facility] [id number] [place] [address] [facility] [place] [id number], [phone] MCH 28.7 pg Normal 28.4-33.4 [facility] Comment on above: Performed By: #### L AB15 ####[facility] [id number] [place] [address] [place]#### [id number] ####[facility] [id number] [place] [address] [facility], [phone] MCHC mass conc (RBC) 33.5 g/dL Normal 31.1-37.0 [facility] Comment on above: Performed By: #### L AB15 ####[facility] [id number] [place] [address] [place]#### [id number] ####[facility] [id number] [place] [address] [facility], [phone] MCV 85.6 fL Normal 85.0-99.0 [facility] Comment on above: Performed By: #### L AB15 ####[facility] [id number] [place] [address] [place]#### [id number] ####[facility] [id number] [place] [address] [facility] [place] [id number], [place] [phone] Monocytes 7.3 10*3/uL Normal [facility] Comment on above: Performed By: #### L AB15 ####[facility] [place] [facility] [id number] [place] [address] [place]#### [id number] ####[facility] [id number] [place] [address] [facility], [place] [phone] Monocytes 0.4 10*3/uL Normal 0.3-0.9 [facility] Comment on above: Performed By: #### L AB15 ####[facility] [id number] [place] [address] [place]#### [id number] ####[facility] [place] [id number] [place] [address] [facility], [phone] Neutrophils 3.1 10*3/uL Normal 2.0-7.3 [facility] Comment on above: Performed By: #### L AB15 ####[facility] [id number] [place] [address] [place]#### [id number] ####[facility] [place] [id number] [place] [address] [facility], [phone] Neutrophils 61.4 10*3/uL Normal [facility] Comment on above: Performed By: #### L AB15 ####[facility] [id number] [place] [address] [place]#### [id number] ####[facility] [place] [id number] [place] [address] [facility], [phone] Platelets 187 10*3/uL Normal 154-393 [facility] Comment on above: Performed By: #### L AB15 ####[facility] [id number] [place] [address] [place]#### [id number] ####[facility] [place] [id number] [place] [address] [facility] [place], [place] [phone] WBC (Leukocytes) 5.0 10*3/uL Normal 4.0-10.5 [facility] Comment on above: Performed By: #### L AB15 ####[facility] [id number] [place] [id number] [facility]#### [id number] ####[facility] [id number] [address] [facility] [place], [place] [phone] CT-HEAD W/O CONTRASTon 01-23 CT-HEAD W/O CONTRAST [...] Finn Gentile MD, 01/23/2018 11:43 AM Normal [facility] EKG STANDARD 12 LEADon 01-23 Pulse (Heart Rate) RR Interval= 822 msP R Interval= 180 msQRSD Interval= 115 msQT Interval= 385 msQTc Interval= 425 msHeart Rate= 73 msP Homer= 60 degQRS Homer= -26 degT Wave Homer= 5 degI: 40 Homer= -12 degT: 40 Homer= -39 degST Homer= -61 degSinus rhythm Nonspecific intraventricular conduction delay Inferior infarct, old Electronically Signed by: Sherif Nam) 23-Jan-2018 10:43:27 Date and Time of Study: 2018-01-23 10:11:14 Normal [facility] TROPONIN Ion 01-23-2018 Troponin I.cardiac mass conc ng/mL Normal 0.000-0.04 5 [facility] Comment on above: Performed By: #### L AB15 ####[facility] [id number] [address]#### [id number] ####[facility] [id number] [phone] Troponin I.cardiac mass conc Normal [facility] Comment on above: Result Comment: Trop onin I 0.045-0.600 is abnormal but not clinically relevant. Please correlate with other clinical findings. Troponin I >0.600 is clinically relevant in accordance with WHO criteria. Performed By: #### L AB15 ####[facility] [id number] [address]#### [id number] ####[facility] [id number] [address] Consultson 09-08-2016 Consults Encounter Department : [facility]Consults by Paris An RD at 09/08/2016 10:08 AMAuthor: ADDY Chauervice: NutritionAuthor Type: Registered DietitianFiled: 09/08/2016 10:09 AMNote Time: 09/08/2016 10:08 AMNote Type: ConsultsStatus: SignedEditor: Paris An RD (Registered Dietitian) Consult Orders: 1. IP Consult To Nutrition Care [[id number]] ordered by Jailene Flores MD at 09/07/16 [...] be available as needed for any questions. [facility] Procedureson 09-08-2016 Procedures Encounter Department : [facility] WESTProcedures by Asmita De at 09/08/2016 2:27 PMAuthor: Asmita Dawkinservice: CardiologyAuthor Type: TechnologistFiled: 09/08/2016 2:46 PMNote Time: 09/08/2016 2:27 PMNote Type: ProceduresStatus: SignedEditor: Asmita De (Technologist)Cosigner: Walt Mckeon MD at 09/08/2016 2:49 PMPatient InformationPatient NameSexDOOmar White1945 [id number] Progress Notes by Walt Mckeon MD at 09/08/2016 2:23 PMAuthor: ANDRESSA Huangervice: CardiologyAuthor Type: PhysicianFiled: 09/08/2016 2:27 PMNote Time: 09/08/2016 2:23 PMStatus: AddendumEditor: Walt Mckeon MD (Physician)Related Notes:Original Note by Walt Mckeon MD (Physician) filed at 09/08/2016 2:27 PMExpand All <#> Collapse All <#>BRENDAN ReportName: Janice Shultz Date/Time of Admission: 09/07/2016 7:48 AMCSN: [id number] Attending Provider: Dwight Jackson MD Room/Bed: R3306/F5503GZQF: 1945 71 y.o.DATE OF PROCEDURE: 09/08/2016Procedure: Transesophageal [...] at bedside.Electronicallysigned by: Walt Mckeon MD 09/08/2016 [facility] Progress Noteson 09-08-2016 Progress Notes Encounter Department : [facility]STProgress Notes by Dwight [...] Polo Jackson MD Electronicallysigned by: Verónica Holden APRN-LOAN OFFICER 09/08/2016Subjective: Patient states he is doing better. [...] KMCTime spent on DC process 35 minutes [facility] Progress Notes Encounter Department : [facility]Progress Notes by Alberto [...] be arranged by his local physicians in [facility] Progress Notes Encounter Department : [facility] WESTProgress Notes by Walt Mckeon MD at 09/08/2016 2:23 PMAuthor: ANDRESSA Huangervice: CardiologyAuthor Type: PhysicianFiled: 09/08/2016 2:27 PMNote Time: 09/08/2016 2:23 PMNote Type: Progress NotesStatus: AddendumEditor: Walt Mckeon MD (Physician)Related Notes:Original Note by Walt Mckeon MD (Physician) filed at 09/08/2016 2:27 PMTEE ReportName: Janice Shultz Date/Time of Admission: 09/07/2016 7:48 [facility] [id number] Attending Provider: Ivan Deluna/Bed: R3306/F5635O : 1945 71 y.o.DATE OF PROCEDURE: 09/08/2016Procedure: [...] bedside.Electronicallysigned by: Walt Mckeon MD 09/08/2016 Normal [facility] Progress Notes Encounter Department : [facility] MED SURG WESTProgress Notes by Kamla Ramos RN at 09/08/2016 2:24 PMAuthor: Kamla Ramos, RNService: (none)Author Type: Registered NurseFiled: 09/08/2016 2:25 PMNote Time: 09/08/2016 2:24 PMNote Type: Progress NotesStatus: SignedEditor: Kamla Ramos RN (Registered Nurse)Patient arrived to [facility] from [facility] in stable condition. Patient awake, resting in bed, VSS, willcontinue to monitor Normal [facility] Progress Notes Encounter Department : [facility] MED SURG WESTProgress Notes by Alberto Newman MD at 09/08/2016 12:12 PMAuthor: ANDRESSA Willervice: CardiologyAuthor Type: PhysicianFiled: 09/08/2016 1:45 PMNote Time: 09/08/2016 12:12 PMNote Type: Progress NotesStatus: SignedEditor: Alberto Newman MD (Physician)Related Notes:Original Note by Monet Wallace PA-C (Physician Plastics Fabricator Or Welder) filed at 09/08/201612:15 PM Cardiology Progress NoteAssessment:Acute VWK-OXA-bexorjms right side acute strokesA. 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 Have not [...] data filed at 09/08/16 1100Gross per 24 dbwoQkjsie445.17 mlOutput 200 vqCvp669.17 mlPhysical Exam:General AppearanceStanding, ambulating, NADHEENTNC/ATChestClearCardi ovascularRRR no [...] 10 mgOralNIGHTLY AT BEDTIMEMEDSINFUSIONS: -0.9 % sodium flagzzrj53 mL/hr (09/08/16 0818)Imaging Studies: Reviewed in chartElectronicallysigned by: ALBERTO NEWMAN, 09/08/2016, 1:45 PM [facility] Progress Notes Encounter Department : [facility]STCarondelet Healthess Notes by Lissette Valdovinos PTA at 09/08/2016 9:23 AMAuthor: Lissette Valdovinos PTAService: PT TreatmentAuthor Type: Physical Therapy AssistantFiled: 09/08/2016 12:24 PMNote Time: 09/08/2016 9:23 AMNote Type: Progress NotesStatus: SignedEditor: Lissette Valdovinos PTA (Stem Roller Or Crusher Operator)Related Notes:Original Note by Lissette Valdovinos PTA (Stem Roller Or Crusher Operator) filed 09/08/2016 11:57 AMCosigner: Jana Ashby, PT at 09/14/2016 12:30 PMThe [facility] CenterPhysical Therapy TreatmentAdmit date: 09/07/2016 Today's Date: 09/08/2016Patient Name/MR#: Janice Shultz [id number] Room: [facility]/Z2933ZCpdlvgijm Diagnosis: Left arm numbness [R20.0]TIA (transient ischemic attack) [G45.9]Admitting Provider:No admitting provider for patient encounter.Height:5' 11 (1.803 m) Weight: 196 lb 12.8 oz (89.268 kg)Recent Labs:Recent Labs 09/07/16 0816HEMOGLOBIN 15.3Current Medical Status: per chart review: 71 y.o. R - handed male presenting to [facility] with left arm numbness and tingling [...] here visiting family, as pt is from [facility], when this occurred; pt and shareIA; pt [...] s:Barriers to Learning:NoneCognitionHearin gVisionMotivationReadinessJu dgmentInsightAwarenessEasily DistractedPre-MorbidMental StatusLanguage barrier(non-[place] speaking)Communication BarrierPainComments:Observat ions/Vitals: pt in bed with [...] 28 < 18 = High Risk of Ukslt74-52 = Moderate Risk > 24 = Low [...] will perform sit to stand transfers with [place].3. Pt will amb. 25 ft with SUP [...] 1 flight of stairs with HR and [place] w/o LOB.Discharge Recommendations:PT Discharge Recommendations: Home with [...] 1220Total tx time: 10Timed coded minutes: 10 [facility] Progress Notes Encounter Department : [facility] SUR[facility] WESTProess Notes by Devyn Bocanegra DO at 09/08/2016 10:33 AMAuthor: Marianne Mehtarvice: NeurologyAuthor Type: PhysicianFiled: 09/08/2016 11:48 AMNote Time: 09/08/2016 10:33 AMNote Type: Progress NotesStatus: SignedEditor: Devyn Bocanegra DO (Physician).Neurology Progress NoteBAYPOINTE HOSPITALPatient Name: Janice ChandlerB: 1945MRN: [id number]:The patient was seen and examined. No acute changes over night, no new stroke symptoms. He feelspretty much back to his baseline.Objective:Current Facility-Administered MedicationsMedicationDoseRou teFrequencyProviderLast RateLast Dose -0.9 % sodium chloride infusion 50 mL/hrIntravenousCONTINUOUSSa kady Flores MD50 mL/hr at09/08/16 077094 mL/hr at 09/08/16 0818 -0.9 % sodium [...] (ZOCOR) tablet 10 mg 10 mgOralNIGHTLY AT BEDTIMESjodran Flores MD10 mg at09/07/162022Vital Signs:BP: 137/97 mmHg [...] during the hospital encounter of 09/07/16Lipid PanelResultValueRef XjwshQfmyaebbzst627<=200 mg/fCXtyhwfctdxbdq305 (A)0-149 mg/dLHDL36 (A)40-60 mg/dLLDL Cholesterol0-99 mg/zCRGZN14 (A)0-40 mg/dL,No results found for this or any previous visit.Last Liver Function Results:No results for input(s): ALT, AST, BILIDIR, ALKPHOS in the last 168 hours.Invalid input(s): BILITOTALImaging/Other Studies:CT head: nonacute, stable old infarction in right parieto-occipital lobe, stable small vesselischemic disease.MRI brain: Multiple scattered embolic infarctions throughout the MCA/SHIRT FOLDING MACHINE OPERATOR distributionCUS: B 1-49%Echo: EF 60% November 2015Reviewed [...] brain: Multiple scattered embolic infarctions throughout the MCA/SHIRT FOLDING MACHINE OPERATOR distribution3. CUS: B 1-49%4. Echo: EF: 60%3.Risk Factors: age, HTN, recent infarct.4.Secondary stroke prevention: on ASA, Plavix and Zocor outpatient.5.Recommend BRENDAN as this patient has very likely embolic origin of infarctions with a stable ECHO.BRENDAN scheduled for 2. If this is normal, would recommend outpatient long term care administrator event monitoring.6.Follow up outpatient with stroke clinic7.Continue PT/OT/Judith Bocanegra DO 09/08/2016 [facility] Progress Notes Encounter Department : [facility] WESTProgress Notes by Devyn Mcmahon OT at 09/08/2016 8:30 AMAuthor: SUNNY Olveraervice: OT TreatmentAuthor Type: Occupational TherapistFiled: 09/08/2016 10:55 AMNote Time: 09/08/2016 8:30 AMNote Type: Progress NotesStatus: SignedEditor: Devyn Mcmahon OT (Occupational Therapist)[facility] Occupational Therapy TreatmentAdmit date: 09/07/2016 Today's Date: 09/08/2016Patient Name/MR#: Janice Shultz [id number] [address]: [address] Diagnosis: Left arm numbness [R20.0]TIA (transient ischemic attack) [G45.9]Admitting Provider:No admitting provider for patient encounter.Height:5' 11 (1.803 m) Weight: 196 lb 12.8 oz (89.268 kg)Recent Labs:Recent Labs 09/07/16 0816HEMOGLOBIN 15.3Current Medical Status: per chart review: 71 y.o. R - handed male presenting to [facility] with left arm numbness and tingling [...] here visiting family, as pt is from [facility], when this occurred; pt and shareIADL; pt [...] to LearningNoneCognitionHearing VisionMotivationReadinessEas lupe DistractedJudgmentInsightAwa renessPre-MorbidMental StatusLanguage barrierNon-British [place] Islander SpeakingCommunicationBarrier Observations/Vitals: pt seen supine with telemetry, [...] TransferxTub/Shower xFunctional Mobility Comments: bed mobility completed [place], use of unilateral BR. Pt completed STSfrom [...] ADL MI2. Pt will complete LB dressing [place], using AE as needed3. Pt will stand x10 minutes [place] while completing ADL tasks with no inc [...] Time: 25Timed Code Minutes : 25 Normal [facility] BASIC METABOLIC PANELon 08-14 Anion gap 11 mmol/L Normal -16 [facility] Comment on above: Performed By: #### L AB320 ####[facility] [id number] [place] [address] [facility] [place] [address] [phone]#### [id number] ####[facility] [id number] [place] [address] [facility] BUN (urea nitrogen) 14 mg/dL Normal 7-[address] [facility] Comment on above: Performed By: #### L AB320 ####[facility] CLIA [id number] [place] [address] [facility] [place] [address], [place] [phone]#### [id number] ####[facility] CLIA [id number] [place] [address] [facility] Calcium 9.2 mg/dL Normal 8.5-10.1 [facility] Comment on above: Performed By: #### L AB320 ####[facility] [id number] [place] [address] [facility], [place] [phone]#### [id number] ####[facility] CLIA [id number] [place] [address] [place] Chloride 101 mmol/L Normal 98-107 [facility] Comment on above: Performed By: #### L AB320 ####[facility] [id number] [place] [address] [facility], [place] [phone]#### [id number] ####[facility] [id number] [place] [address] [place] CO2 27 mmol/L Normal 21-32 [facility] Comment on above: Performed By: #### L AB320 ####[facility] [id number] [place] [address] [facility], [place] [phone]#### [id number] ####[facility] [id number] [place] [address] [place] Creatinine 1.03 mg/dL Normal 0.60-1.30 [facility] Comment on above: Performed By: #### L AB320 ####[facility] [id number] [place] [address] [facility], [place] [phone]#### [id number] ####[facility] CLIA [id number] [place] [address] [place] eGFR (black) mL/min/{1.73_m2} Normal >60 [facility] Comment on above: Result Comment: GFR is estimated using creatinine, age, gender, and race. Patient's values should be interpreted as a trend. For additional information: [email or web address] Performed By: #### L AB320 ####[facility] CLIA [id number] [place] [address] [facility], [place] [phone]#### [id number] ####[facility] CLIA [id number] [place] [address] [place] eGFR (non-black) mL/min/{1.73_m2} Normal >60 [facility] Comment on above: Result Comment: GFR is estimated using creatinine, age, gender, and race. Patient's values should be interpreted as a trend. For additional information: [email or web address] Performed By: #### L AB320 ####[facility] CLIA [id number] [place] [address] [facility], [place] [phone]#### [id number] ####[facility] CLIA [id number] [place] [address] [place] Glucose mass conc 115 mg/dL Abnormal 74-106 [facility] Comment on above: Performed By: #### L AB320 ####[facility] CLIA [id number] [place] [address] [facility], [place] [phone]#### [id number] ####[facility] CLIA [id number] [place] [address] [place] Potassium molar conc 4.8 mmol/L Normal 3.5-5.1 [facility] Comment on above: Result Comment: Mode rate hemolysis present. Performed By: #### L AB320 ####[facility] CLIA [id number] [place] [address] [facility], [phone]#### [id number] ####[facility] CLIA [id number] [place] [address] [facility] Sodium 139 mmol/L Normal 136-145 [facility] Comment on above: Performed By: #### L AB320 ####[facility] [id number] [place], [facility]31 [facility] [place] [id number], [phone]#### [id number] ####[facility] [id number] [place] [address] [facility] CBC W/DIFFon 09-07-2016 Basophils/100 WBC Auto (Bld) 1.0 % Normal [facility] Comment on above: Performed By: #### L AB320 ####[facility] [id number] [place] [address] [facility] [place] [address], [phone]#### [id number] ####[facility] [id number] [place] [address] [address] BSA (Body Surface Area) 0.1 K/uL Normal 0.0-0.1 [facility] Comment on above: Performed By: #### L AB320 ####[facility] [id number] [place] [address] [facility] [place] [id number], [place] [address]#### [id number] ####[facility] [id number] [place] [address] [place] Eosinophils 0.2 10*3/uL Normal 0.0-0.4 [facility] Comment on above: Performed By: #### L AB320 ####[facility] [id number] [place] [address] [place] [facility] [place] [phone], [place] [address]#### [id number] ####[facility] [id number] [place] [address] [place] Eosinophils 2.7 10*3/uL Normal [facility] Comment on above: Performed By: #### L AB320 ####[facility] [id number] [place] [address] [place] [facility] [place] [phone], [place] [address]#### [id number] ####[facility] [id number] [place] [address] [place] Erythrocyte distribution width Auto Ratio (RBC) 11.8 % Normal 11.7-15.2 [facility] Comment on above: Performed By: #### L AB320 ####[facility] [id number] [place] [address] [place] [facility] [place] [phone], [place] [address]#### [id number] ####[facility] [id number] [place] [address] [place] Erythrocytes (RBC) 5.42 10*6/uL Normal 4.30-5.86 [facility] Comment on above: Performed By: #### L AB320 ####[facility] [id number] [place] [address] [facility], [phone]#### [id number] ####[facility] [id number] [place] [address] [facility] Hematocrit (HCT) 45.8 % Normal 39.0-51.5 [facility] Comment on above: Performed By: #### L AB320 ####[facility] [id number] [place] [address] [facility] [place] [phone], [address]#### [id number] ####[facility] [id number] [place] [address] [facility] Hemoglobin mass conc (Bld) 15.3 g/dL Normal 13.1-17.6 [facility] Comment on above: Performed By: #### L AB320 ####[facility] [id number] [place] [address] [facility] [place] [phone], [address]#### [id number] ####[facility] [id number] [place] [address] [place] Lymphocytes 1.2 10*3/uL Normal 0.8-3.6 [facility] Comment on above: Performed By: #### L AB320 ####[facility] [id number] [place] [address] [facility] [place] [phone], [phone]#### [id number] ####[facility] [id number] [place] [address] [place] Lymphocytes 13.9 10*3/uL Normal [facility] Comment on above: Performed By: #### L AB320 ####[facility] [id number] [place] [address] [facility] [place] [phone], [place] [address]#### [id number] ####[facility] [id number] [place] [address] [facility] MCH 28.3 pg Abnormal 28.4-33.4 [facility] Comment on above: Performed By: #### L AB320 ####[facility] [id number] [place] [address] [facility] [place] [phone], [place] [address]#### [id number] ####[facility] [id number] [place] [address] [facility] MCHC mass conc (RBC) 33.5 g/dL Normal 31.1-37.0 [facility] Comment on above: Performed By: #### L AB320 ####[facility] [id number] [place] [address] [facility] [place] [id number], [address]#### [id number] ####[facility] [id number] [place] [address] [facility] MCV 84.5 fL Abnormal 85.0-99.0 [facility] Comment on above: Performed By: #### L AB320 ####[facility] [id number] [place] [address] [facility], [phone]#### [id number] ####[facility]IA [id number] [place] [address] [place] Monocytes 6.2 10*3/uL Normal [facility] Comment on above: Performed By: #### L AB320 ####[facility] [id number] [place] [address] [facility]35[address], [place] [phone]#### [id number] ####[facility] [id number] [place] [address] [place] Monocytes 0.5 10*3/uL Normal 0.3-0.9 [facility] Comment on above: Performed By: #### L AB320 ####[facility] [id number] [place] [address] [facility], [phone]#### [id number] ####[facility] [id number] [place] [address] [place] Neutrophils 6.8 10*3/uL Normal 2.0-7.3 [facility] Comment on above: Performed By: #### L AB320 ####[facility] [id number] [place] [address] [facility], [place] [phone]#### [id number] ####[facility] [id number] [place] [address] [place] Neutrophils 76.2 10*3/uL Normal [facility] Comment on above: Performed By: #### L [id number] ####[facility] CLIA [id number] [place] [address] [facility]35[address], [place] [phone]#### [id number] ####[facility]IA [id number] [place] [address] [facility] Platelets 197 10*3/uL Normal 154-393 [facility] Comment on above: Performed By: #### L AB320 ####[facility] [id number] [place] [address] [facility] [place] [id number] [address], [place] [address]#### [id number] ####[facility]IA [id number] [place] [address] [facility] WBC (Leukocytes) 8.8 10*3/uL Normal 4.0-10.5 [facility] Comment on above: Performed By: #### L [id number] ####[facility]IA [id number] [place] [address] [facility] [place] [id number] [address], [place] [address]#### [id number] ####[facility] [id number] [place] [address] [facility] CT-HEAD W/O CONTRASTon 09-07 CT-HEAD W/O CONTRAST CT-HEAD W/O CONTRAS T DATE OF EXAM: 09/07/2016 8:07 AMCLINICAL INDICATION: CVAPATIENT INFORMATION: History: Left arm tingling and numbness that started this morning, right religion pain with activity. Patient had a stroke [...] by: Titus Kurtz MD, 09/07/2016 8:13 AM [facility] Consultson 09-07-2016 Consults Encounter Department : [facility] MED SURG WESTConsults by Franky Villalobos MD at 09/07/2016 2:32 PMAuthor: ANDRESSA Henryervice: CardiologyAuthor Type: PhysicianFiled: 09/07/2016 4:44 PMNote Time: 09/07/2016 2:32 PMNote Type: ConsultsStatus: SignedEditor: Franky Villalobos MD (Physician)Related Notes:Original Note by Monet Wallace PA-C (Physician Plastics Fabricator Or Welder) filed at 09/07/2016 3:56 PM Consult Orders: 1. IP Consult to Cardiology [[id number]] ordered by Devyn Bocanegra DO at 09/07/16 1404Cardiology Inpatient ConsultName: Janice Kerr/Time of Admission: 09/07/2016 7:48 AMCSN: [id number] Provider: Ivan Russell/Bed: R3306/H7193SSDM: 1945 Age: 71 y.o.Assessment:Acute VRZ-IIH-jnpvqkuq right side acute strokesA. Hx of CVA right parieto-occipital lobe 11/26 has been on Plavix, ASACarotid stenosis bilateral ICA 1-49% stenosis CAD s/p [place] 2014 with stent a7-KaxqayqzFVAQVR-ms simvastatinHypertriglyceride [facility] Lead Programmer: Barbara Gupta:HR and BP stable. Have not [...] November 2015. 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 09/07/2016 8:26 AMORDERING PROVIDER:JAMESON [...] EPORTSinus rhythmPreliminary?REPORTPrel iminary?Nonspecific intraventricular conduction delay?Interpreting PhysPreliminary?Study Date/Xdok5468-84-68 08:32:39ECHO:4/16Summary:?1. Normal observed left ventricular ejection fraction of 60%.?2. Mild left ventricular diastolic dysfunction.?3. Mild concentric left ventricular hypertrophy.?4. Aortic root dilatation.?5. The aortic valve is calcified with no significant stenosis.Electronically signed by; Monet Wallace PA-C 09/07/2016 [facility] Consults Encounter Department : [facility] MED SURG WESTConsults by Devyn Bocanegra DO at 09/07/2016 9:47 AMAuthor: Marianne Mehtarvice: NeurologyAuthor Type: PhysicianFiled: 09/07/2016 11:02 AMNote Time: 09/07/2016 9:47 AMNote Type: ConsultsStatus: SignedEditor: Devyn Bocanegra DO (Physician) Consult Orders: 1. IP Consult to Neurology [[id number]] ordered by Jailene Flores MD at 09/07/16 0924Neurological Services Consult NoteBAYPOINTE [facility]OSPITALPatient Name:Janice Shultz : 1945Subjective:CC:71 y.o. R - handed male [facility] with left arm numbness andtingling that [...] supple, no meningeal signs; Fundoscopic: nopapilledemaHeart: RRR, C5T0Cguac: CTABAbd: soft/NT/ND, +BSExt: no edema, no calf [...] Tremors--none Rapidly alternating movements: no dysdiadochokinesia b/l Ktrg-xn-Edyd: no dysmetria b/l Vbcvei-dl-Fkjx: no dysmetria b/lGait and stance: Gait: deferredLABS:Recent [...] us.Devyn Daljit, DO, 09/07/2016 9:48 AM Normal [facility] ED Provider Noteson 09-07-19 ED Provider Notes Encounter Department [facility]Y DEPARTMENTED Provider Notes by Jameson [...] weakness in his arm.He has had prior [place] and history of hypertension. Patient denies any [...] take Zocor without problems,PHYSICAL EXAM:VITAL SIGNS:ED Triage KfjmeaZP65/26/17 8575731/89 esKzEdyt29/26/17 556377.3 ?F (36.8 ?C)Heart Rate09/07/16 448031Xdtv19/26/17 594444TdN800/26/17 797946 %Mvtjqo89/26/17 4880372 lb (86.183 kg)Joseph Coma Scale Score09/07/16 584875LHY (Calculated)09/07/16 832259.6Constitutional: mild acute distress, Non-toxic appearanceHENT: Normocephalic, Atraumatic, [...] x 3,NIH Stroke ScaleInterval: BaselinePerson Administering Scale: [facility] [place] stroke scale items in the order listed. [...] make aspecial effort).1a Level of consciousness:0=alert; keenly toaedvxqmc2y.LOC questions: 0=Performs both tasks vzukecejj0g.LOC commands:0=Performs both tasks correctly2. Best Gaze:0=normal3. Visual:0=No visual loss4.Facial Palsy:0=Normal symmetric emsqjrng7y. Motor left arm:0=No drift, limb holds 90 (or 45) degrees for full 10 uvflhic7x. Motor right arm:0=No drift, limb holds 90 (or 45) degrees for full 10 jisivsu7u.motor left le=No drift, limb holds 90 (or 45) degrees for full 10 cvhldlz0f Motor right le=No drift, limb holds 90 (or 45) degrees for full 10 seconds7.Limb Ataxia:0=Absent8. Sensory:0=Normal; no sensory loss9.Best Language: 0=No aphasia, jfycdb74.Dysarthria:0=Normal 11.Extinction and Inattention:0=No rclueuikqhl73.Distal motor function:0=NormalTotal: 0Skin: Warm, No rash, no [...] 8:13 AMXR-Chest PA AND LATNarrativeEXAM:XR-CHEST PA AND LATACCESSION:[id number] TE OF SERVICE: 09/07/2016 8:26 AMORDERING PROVIDER:JAMESON [...] - Abnormal; Notable for the following:MCV84.5 (*)85.0-99.0 pdUizrmPUJ06.3 (*)28.4-33.4 pgFinalAll other components within normal limitsBASIC METABOLIC PANEL - Abnormal; Notable for the following:Cquukls068 (*)74-106 mg/dLFinalAll other components within normal limitsGLUCOSE POC RESULTS - Abnormal; Notable for the following:POC Vfdpgga968 (*)74-106 mg/dLFinalAll other components within normal limitsNarrative:Point [...] criteria.POC GLUCOSE, BLOOD BY GLUCOSE MONITORING DEVICE (ACCUCHNutrinia)EXTRA TUBE-SSTBP 168/89 mmHg Pulse 77 Temp(Src) 98.3 ?F (36.8 ?C) Resp 16 Ht 5' 11 (1.803 m) Wt 190 lb(86.183 kg) BMI 26.51 kg/m2 SpO2 99%FINAL IMPRESSION:AQI-8-PVASX-10-CM 1.Left arm pscjonie422.0R20.0Electronic allysigned by: Jameson Sheridan, 09/07/2016Jameson Sheridan MD09/07/16 0917Jameson Sheridan MD09/07/16 0917 Normal [facility] EKG STANDARD 12 LEADon 09-07 Pulse (Heart Rate) RR Interval= 845 msP R Interval= 167 msQRSD Interval= 118 msQT Interval= 383 msQTc Interval= 417 msHeart Rate= 71 msP Homer= 47 degQRS Homer= -31 degT Wave Homer= 3 degI: 40 Homer= -47 degT: 40 Homer= -40 degST Homer= 61 degSinus rhythm Left axis deviation Electronically Signed by: Alberto Newman) 08-Sep-2016 07:49:38 Date and Time of Study: 2016-09-07 08:32:39 Normal [facility] HEMOGLOBIN A1Con 09-07-2016 Glucose mass conc 131 mg/dL Abnormal 68-126 [facility] Comment on above: Performed By: #### L AB320 ####[facility] [id number] [place] [id number] [facility]35[address]vd[address], [place] [address]#### [id number] ####[facility] [id number] [place] [address] [facility] Hemoglobin A1c/Hemoglobin.total mass fraction (Bld) 6.2 % Abnormal 4.0-6.0 [facility] Comment on above: Performed By: #### L AB320 ####[facility] [id number] [place] [address] [facility] AND [place] [id number] [facility] [facility] Blvd[address], [place] [address]#### [id number] ####[facility] [id number] [facility]IAVDBEAVERCRE, [address] Hemoglobin A1c/Hemoglobin.total mass fraction (Bld) Normal [facility] Comment on above: Result Comment: Ther apeutic goals for glycemic control:-Goal of therapy :< 7.0% QhC3i-Nrpoed suggested: >8.0% HbA1c Performed By: #### L AB320 ####[facility] [id number] [place] [address] [facility] AND [place] 6942335 [facility] [facility] BlvdBe[address], [place] [address]#### [id number] ####[facility] [id number] [facility] [place] [address] [facility] History and Physicalon 09-07 History and Physical Encounter Departmen t: [facility] MED SURG WESTHANDP by Jailene Flores MD at 09/07/2016 9:30 AMAuthor: ANDRESSA Russellervice: Internal MedicineAuthor Type: PhysicianFiled: 09/07/2016 5:17 PMNote Time: 09/07/2016 9:30 AMNote Type: HANDPStatus: SignedEditor: Jailene Flores MD (Physician)History and Physical Patient Name: Janice ChandlerB: 1945MRN#: [id number] Room / Bed : ED 07/24 Facitily : [facility] Date of Service: 09/07/2016CSN: [id number] Admit Date: 09/07/2016 7:48 AM Attending Physician: [...] but would use IV Hydralazine 10 mg F0maQWL for SBP > 160For further risk stratification, [...] no subcutaneous nodule palpatedPertinent Data:Last BMP Results:Recent PnhyBcz12/26/17 8464MN496R7.7AM237HQ903MKS31 CREATININE1.91XOK683*CALCIUM 9.2No results found for this or any previous visit.Last CBC w diff Results:Recent EixkSsv03/26/17 3202YAD2.5AMEHKKLKJS59.3HCT4 5.9SRN146AHF8.49PLOX98.5MCH2 8.3*RDW11.7ZHCJDDBSKPX30.2MO NOCYTES6.2Last Liver Function Results:No results for input(s): [...] @ 71 bpmThis note was created using [employer] Speaking dictation softwareJailene Flores MD09/07/2016 @ 9:30 AM Normal [facility] LDL CHOLESTEROL, DIRECTon LDL CHOLESTEROL DIRECT 100 mg/dl Normal 0-100 [facility] Comment on above: Performed By: #### L AB320 ####[facility] CLIA [id number] [place] 6257331 [facility] AND [place] 6942335 [facility] GeorgiaBeDavid [place] [phone]#### [id number] ####[facility] CLIA [id number] [place] VDBE[place]ERNICO[place] [id number] [facility] LDL CHOLESTEROL, DIRECT Normal [facility] Comment on above: Result Comment: ATP III Classification of LDL, Total and HDL Cholesterol (mg/dl)LDL Cholesterol: <100 Optimal 100-129 Near optimal/above optimal 130-159 Borderline high 160-189 High =190 Very high Performed By: #### L AB320 ####[facility] [id number] [place] [address], [facility]31 [facility]35[address]vd[address], [place] [address]#### [id number] ####[facility]IA [id number] [address], [facility]31 [facility] LIPID PANELon 09-07-2016 Cholesterol 191 mg/dL Normal <=200 [facility] Comment on above: Performed By: #### L AB320 ####[facility]IA [id number] [place] [address], [facility]31 [facility] AND [place] [address]2335 [address]vd[place], [place] [address]#### [id number] ####[facility] [id number] [place] [address], [facility]31 [facility] Cholesterol 36 mg/dL Abnormal 40-60 [facility] Comment on above: Performed By: #### L AB320 ####[facility]IA [id number] [place] [address], [facility]31 [facility]35[address]vd[address], [place] [phone]#### [id number] ####[facility]IA [id number] [place], [facility]31 [facility] LDL Cholesterol Normal 0-99 [facility] Comment on above: Result Comment: LDL calculation is invalid because the triglyceride level is equal to or greater than 400 mg/dl. Performed By: #### L AB320 ####[facility] [id number] [place] [address] [facility] AND [place] [address]2335 [address] vdBeMicheal [place] [phone]#### [id number] ####[facility] [id number] [place] [address] [facility] LIPID PANEL Normal [facility] Comment on above: Result Comment: ATP III Classification of LDL, Total and HDL Cholesterol (mg/dL)LDL Cholesterol: <100 Optimal 100-129 Near optimal/above optimal 130-159 Borderline high 160-189 High >=190 Very highTotal Cholesterol: <200 Desirable 200-239 Borderline high >=240 HighHDL Cholesterol: <40 Low >=60 High Performed By: #### L AB320 ####[facility] [id number] [place] [address] [facility] AND [place] [address]2335 [address], [address]#### [id number] ####[facility] [id number] [place] [address] [place] Triglyceride 413 mg/dL Abnormal 0-149 [facility] Comment on above: Performed By: #### L AB320 ####[facility] [id number] [place] [address] [facility] AND [place] [address]2335 [address], [place] [address]#### [id number] ####[facility] [id number] [place] [address] [place] VLDL CHOLESTEROL 83 mg/dL Abnormal 0-40 [facility] Comment on above: Performed By: #### L AB320 ####[facility] [id number] [place] [address] [facility] AND [place] [address]2335 [address], [place] [phone]#### [id number] ####[facility] CLIA [id number] [place] [address], [address] MAGNESIUMon 09-07-2016 Magnesium 1.7 mg/dL Normal 1.5-2.3 [facility] Comment on above: Performed By: #### L AB320 ####[facility]IA [id number] [place], [address]ETINDCITIZENS MEMORIAL [facility]ALTHCARE35[address], [place] [address]#### [id number] ####[facility] [id number] [facility], [address] MRI-HEAD WO CONTRASTon 09-07 MRI-HEAD WO [...] report was called to Dr. Dalila WANG [facility] IR MedSurg3.This dictation was created with voice recognition software. While attempts have been made to review the dictation as it is transcribed, on occasion the spoken word can be misinterpreted by the technology leading to omissions or inappropriate words, phrases or sentences.Electronically Signed by: Janice Mayorga MD, 09/07/2016 1:50 PM Normal [facility] PARTIAL THROMBOPLASTon 09-07 PARTIAL THROMBOPLASTIN TIME MECHANICAL 41.2 Seconds Abnormal 27.0-39.0 [facility] Comment on above: Performed By: #### L AB320 ####[facility]IA [id number] [place] [address], [address] BlvdBeavercreColin [place] [phone]#### [id number] ####[facility]IA [id number] [place] [address], [address] PROTIME-INRon 09-07-2016 INR Coag RelTime (Bld) [facility] Comment on above: Result Comment: Cond ition and INR Therapeutic Range:Deep venous thrombosis 2.0-3.0Pulmonary embolism 2.0-3.0Acute myocardial infarction 2.0-3.0Atrial fibrillation 2.0-3.0Antiphospholipid syndrome (no other risk factors) 2.0-3.0Antiphospholipid syndrome with recurrent thromboembolism 2.5-3.0Bioprosthetic (tissue) valve 2.0-3.0Mechanical prosthetic valves 2.0-3.0 or 2.5-3.5 depending on valve type and location Performed By: #### L AB320 ####[facility]IA [id number] [place], [address] [facility]35[address] BlvdBeavercreekKathleen [place] [phone]#### [id number] ####[facility] CLIA [id number] [place] [address] [facility] INR Coag RelTime (PPP) 1.1 {INR} Normal 0.8-1.1 [facility] Comment on above: Performed By: #### L AB320 ####[facility] CLIA [id number] [place] [address], [facility]31 [facility]35[address]vd[place], [place] [address]#### [id number] ####[facility]IA [id number] [place] [address], [address] Prothrombin time (PT) Coag time (PPP) 11.8 s Normal 9.3-12.3 [facility] Comment on above: Performed By: #### L AB320 ####[facility]IA [id number] [place] [address], [facility]31 [facility] AND [place] [address]2335 [address], [place] [address]#### [id number] ####[facility] [id number] [place], [address] INR Coag RelTime (Bld) Normal [facility] Comment on above: Result Comment: Cond ition and INR Therapeutic Range:Deep venous thrombosis 2.0-3.0Pulmonary embolism 2.0-3.0Acute myocardial infarction 2.0-3.0Atrial fibrillation 2.0-3.0Antiphospholipid syndrome (no other risk factors) 2.0-3.0Antiphospholipid syndrome with recurrent thromboembolism 2.5-3.0Bioprosthetic (tissue) valve 2.0-3.0Mechanical prosthetic valves 2.0-3.0 or 2.5-3.5 depending on valve type and location Performed By: #### L AB320 ####[facility] CLIA [id number] [place] [address], [address] AND [place] 6942335 [place] [address]#### [id number] ####[facility] AND [place] [id number] [facility], [address] INR Coag RelTime (PPP) 1.0 {INR} Normal 0.8-1.1 [facility] Comment on above: Performed By: #### L AB320 ####[facility] [id number] [facility]ITALBET[facility], [address] AND [place] [address]#### [id number] ####[facility] [id number] [facility], [address] Prothrombin time (PT) Coag time (PPP) 11.3 s Normal 9.3-12.3 [facility] Comment on above: Performed By: #### L AB320 ####[facility] [id number] [facility], [address] AND [place] [address] [place] [address]#### [id number] ####[facility] [id number] [facility], [address] Progress Noteson 09-07-2016 Progress Notes Encounter Department : [facility] MED SURG WESTProgress Notes by Vickie [...] Cayla gonzalez.Awaiting a return call.Vickie Sanchez Normal [facility] TROPONIN Ion 09-07-2016 Troponin I.cardiac mass conc ng/mL Normal 0.000-0.04 5 [facility] Comment on above: Performed By: #### L AB320 ####[facility]ENTERIA [id number] [facility]ITALVDBEAVERSPARR[facility], [address] AND [place] [phone] PentUnited [facility] Medical CenterBeaverVicki [place] [address]#### [id number] ####[facility]IA [id number] [address] Troponin I.cardiac mass conc Normal [facility] Comment on above: Result Comment: Trop onin I 0.045-0.600 is abnormal but not clinically relevant. Please correlate with other clinical findings. Troponin I >0.600 is clinically relevant in accordance with WHO criteria. Performed By: #### L AB320 ####[facility]ENTERIA [id number] [facility] VDBEAVERSPARROW [facility], [address] AND [place] 6942335 [facility] [place] [address]#### [id number] ####[facility]ENTERIA [id number] [facility]ERSPARR[facility], [address] TSHon 09-07-2016 Thyroid stimulating hormone (TSH) 0.705 uIU/mL Normal 0.358-3.74 0 [facility] Comment on above: Performed By: #### L [id number] ####[facility] CLIA [id number] [address] [address], [address] AND [place] [id number] [facility] [place] [address]#### [id number] ####[facility] [id number] [place] [address] [place] URINALYSIS MICROSCOPIC ONLYo n 09-07-2016 AMORPHOUS CRYSTALS 2+ /lpf Abnormal Negative [facility] Comment on above: Performed By: #### L [id number] ####[facility] CLIA [id number] [place] [address] [facility], [place] [id number]#### [id number] ####[facility]IA [id number] [place] [address] [place] URINE MUCOUS 2+ /lpf Abnormal Negative [facility] Comment on above: Performed By: #### L AB320 ####[facility] CENTERIA [id number] [place] [address] [facility], [phone]#### [id number] ####[facility]IA [id number] [place] [address] [place] URINE WHITE BLOOD CELLS 0-3 Normal 0-3 [facility] Comment on above: Performed By: #### L [id number] ####[facility]ENTERIA [id number] [place] [address] [facility], [phone]#### [id number] ####[facility] CLIA [id number] [place] [address] [place] Urine, bacteria in sediment Trace Abnormal Negative [facility] Comment on above: Performed By: #### L AB320 ####[facility]IA [id number] [place] [address] [facility], [place] [phone]#### [id number] ####[facility]IA [id number] [place] [address] [place] Urine, epithelial cells in sediment 0-3 Normal 0-3 [facility] Comment on above: Performed By: #### L AB320 ####[facility]ENTERIA [id number] [place] [address] [facility], [place] [phone]#### [id number] ####[facility]IA [id number] [place] [address] [place] URINALYSIS W/REFLEX MICROSCO PYon 09-07-2016 BILIRUBIN, UA Negative Normal Negative [facility] Comment on above: Performed By: #### L AB320 ####[facility] [id number] [place] [address] [facility], [place] [phone]#### [id number] ####[facility] [id number] [place] [address] [place] BLOOD, UA Negative Normal Negative [facility] Comment on above: Performed By: #### L AB320 ####[facility]IA [id number] [place] [address] [facility], [place] [phone]#### [id number] ####[facility]IA [id number] [place] [address] [place] GLUCOSE, UA Negative Normal Negative [facility] Comment on above: Performed By: #### L AB320 ####[facility]ENTERHI [id number] [place] [address] [facility], [place] [phone]#### [id number] ####[facility]IA [id number] [place] [address] [place] KETONES, UA Negative Normal Negative [facility] Comment on above: Performed By: #### L AB320 ####[facility]ENTERIA [id number] [place] [address] [facility], [phone]#### [id number] ####[facility] [place] [id number] [place] [address] [place] LEUKOCYTES, UA Negative Normal Negative [facility] Comment on above: Performed By: #### L AB320 ####[facility]ENTERIA [id number] [place] [address] [facility], [phone]#### [id number] ####[facility]IA [id number] [place] [address] [place] PH, UA 7.5 Normal 5.0-8.0 [facility] Comment on above: Performed By: #### L AB320 ####[facility]ENTERIA [id number] [place] [address] [facility], [place] [phone]#### [id number] ####[facility]IA [id number] [place] [address] [place] PROTEIN, UA Negative Normal Negative [facility] Comment on above: Performed By: #### L AB320 ####[facility]ENTERIA [id number] [place] [address] [facility], [place] [phone]#### [id number] ####[facility]IA [id number] [place] [address] [place] SPECIFIC GRAVITY, UA 1.020 Normal 1.001-1 .03 5 [facility] Comment on above: Performed By: #### L AB320 ####[facility] [id number] [place] [address] [facility], [place] [phone]#### [id number] ####[facility]ENTERIA [id number] [place] [address] [facility] Urine, appearance Slightly Cloudy Abnormal Clear [facility] Comment on above: Performed By: #### L AB320 ####[facility] [id number] [place] [address] [facility] AND [place] [id number] [address], [phone]#### [id number] ####[facility]IA [id number] [place] [address] [facility] Urine, color Yellow Normal Yellow [facility] Comment on above: Performed By: #### L AB320 ####[facility]ENTERIA [id number] [place] [address] [facility], [phone]#### [id number] ####[facility]ENTERIA [id number] [place] [address], [facility]31 [facility] Urine, nitrite presence Negative Normal Negative [facility] Comment on above: Performed By: #### L AB320 ####[facility]ENTERIA [id number] [facility] BLVDBEAV[address]CR[place], [facility]31 [facility] AND [place] [phone] PentBeth David HospitalvdBeavercreT[place] [address]#### [id number] ####[facility]ENTERIA [id number] [facility] HOSPITALVDBEAVERCREEK, [address] UROBILINOGEN, UA 0.2 EU/dL Normal 0.2-1.0 [facility] Comment on above: Performed By: #### L AB320 ####[facility]ENTERIA [id number] [facility] H[facility] HOSPITALVDBEAVERCREEK, [address] AND [place] [phone] PentBeth David HospitalvdBeavercreekSh[place] [address]#### [id number] ####[facility]ENTERIA [id number] [facility]LENOX HILL HOSPITALVDBEAVERSPARROW [facility]IA [facility], [address] VAS-CAROTID DOP BILAT [id number] n 09-07-2016 VAS-CAROTID DOP BILAT 75277 A result will not be generated for this exam.VAS-CAROTID DOP BILAT 25775Mhoxps for Exam: tia/cva. REASON FOR EXAM: tia/cvaDEMOGRAPHICS: [...] by: Bharat Jones MD, 09/07/2016 1:25 PM [facility] XR-CHEST PA AND LATon 2016 XR-CHEST PA AND LAT EXAM: XR-CHEST PA & LATACCESSION: [id number] OF SERVICE: 09/07/2016 8:26 AMORDERING PROVIDER:JAMESON SHERIDAN [...] by: Kay Lew DO, 09/07/2016 8:29 AM [facility] Progress Noteson 11-29-2015 Progress Notes Progress Notes by STACI De Los Santos at 11/29/2015 9:21 AMAuthor: ESTELLE Heathervice: (none)Author Type: Social WorkerFiled: 11/29/2015 9:24 AMNote Time: 11/29/2015 9:21 AMNote Type: Progress NotesStatus: SignedEditor: STACI Heath (Tilt Tray Driver)SOCIAL WORK DISCHARGE SUMMARY NOTEName:Janice Shultz Date:11/29/2015MR#:[id number] B:1945Room #:R3323/T2226XAmm/Sex:70 y.o. maleAdmit Date:11/25/2015Admitting:Same er ANDRESSA Floreservices: Discharge summaryAgency: None at this time.Patient Information patient presented with cerebral vascular accidentTransportation [facility] provided discharge paperworkDischarge Plan patient to return home with no post acute needsAdditional Narrative: Normal [facility] Discharge Summarieson 2015 Discharge Summaries Discharge Summaries by Rahul Phillips MD at 11/26/2015 3:05 PMAuthor: ANDRESSA Bachervice: Internal MedicineAuthor Type: PhysicianFiled: 11/26/2015 6:42 PMNote Time: 11/26/2015 3:05 PMNote Type: Discharge SummariesStatus: SignedEditor: Rahul Phillips MD (Physician)Name: Janice ShultzDate/Time of Admission: 11/25/2015 5:54 [facility]: [id number] Provider: [facility]/[id number]: 1945 Age: 70 y.o.DISCHARGE SUMMARYDate of Admission: 11/25/2015Date of Discharge: 11/26/2015[facility] Left arm weakness, slurred speech, dizzinessConsultants: Dr. Mehta, neurologyProcedures: noneSignificant Tests during this Admission:Significant LabsRecent DirrWne56/ 57340711/25/15 4619LTU0.07.8KKGMZUFRLS01.41 5.6HCT45.346.9CAE461732JXT0. 275.14GGYF23.934.0MCH29.129. 3RDW13.113.8JPYGPELMSRX50 --EDIYGZFVJ47 --Recent OwxhYew80/ 4708MR498Z2.2OE588DN023TLK38 CREATININE1.86RAV894*CALCIUM 8.6Radiological findings:Ct-angio Head W And/or Wo Con [...] Ibanez DO, 11/25/2015 6:03 AMVas-carotid Dop Bilat [id number] IMPRESSION: 1-49% stenosis bilateral internal carotid arteries. [...] air entry +Heart:S1, S2+Abdomen soft, non-tenderExtremities no edema/cyanosis.GASOLINE PUMP INSTALLER: AAO X3, No focal deficits.Discharge Diagnoses:Acute CVAHypertensionHyperlipidemi aHistory of [place] in the pastDischarge Instructions and Follow upActivity: [...] minutesElectronically signed: Rahul Phillips MD 11/26/2015Dr. [facility]ul [facility], [address] [phone] [facility] Progress Noteson 11-26-2015 Progress Notes Progress Notes by Ra brando Hall OT at 11/26/2015 11:17 AMAuthor: SUNNY Stollervice: MAGDI TreatmentAuthor Type: Occupational TherapistFiled: 11/26/2015 3:01 PMNote Time: 11/26/2015 11:17 AMNote Type: Progress NotesStatus: SignedEditor: Georgia Hall OT (Occupational Therapist)Occupational Therapy TreatmentAdmit date: 11/25/2015 Today's Date: 11/26/2015Patient Name/MR#: Janice Shultz [id number] Room: [facility]/Q2822LSkzhctumm Diagnosis: CVA (cerebral vascular accident) [I63.9]Admitting Provider:Jailene [...] here visiting family, as pt is from [facility], when this occurred; pt andwife share IADL; [...] to LearningNoneCognitionHearing VisionMotivationReadinessEas lupe DistractedJudgmentInsightAwa renessPre-MorbidMental StatusLanguage barrierNon-[place] Islander SpeakingCommunicationBarrier Observations/Vitals: Pt supine in bed with [...] was able to use L hand to sheepskin pickler small objects fromtable top with increased time [...] at waistToiletingDenied needADL Comments:MobilityIndMod-ISup CG/MINModMaxTotalNot Addressed this bynnctcAgizzjvSVzo-BcoACrk-J upX pt up on chair at end [...] given to pt with numerous exercises trialedBalance:SittingStatic -VPcnqlaa-JIaneabtxCfmuyp-RI ynamic-SPatient Summary:The patient continues to exhibit the [...] tasks within his environment: progressingDischarge Recommendation:HomeHome w/ [id number] Supervision/AssistHome Care TherapyInpt Rehab UnitSNF/ECFOP OTComments:D/C Equipment NeedsNoneShower tzial9-uj-2Vck KitHospital BedStd WalkerFWWRollator / 4WWStd CaneQuad CaneW/C*Patient [...] Treatment Time: 38Timed Code Minutes : 38 [facility] Progress Notes Progress Notes by STACI De Los Santos at 11/26/2015 2:51 PMAuthor: ESTELLE Heathervice: (none)Author Type: Social WorkerFiled: 11/26/2015 2:54 PMNote Time: 11/26/2015 2:51 PMNote Type: Progress NotesStatus: SignedEditor: STACI Heath (Tilt Tray Driver)Social Service Ongoing CareServices: Discharge planningAgency: None at this time.Comments: reviewed chart, processed patient information in IDT meeting. Patient to return home withno post acute needs at this time. Patient to return home to [place], [place]. Care coordination tocontinue following this patient.STACI Newell 3-45-96Ciwpydypy plan: home with no post acute needs.Barriers: none at this time. [facility] 2D COMPLETE ECHO (COLORFLOW, DOPPLER)on 11-25-2015 2D COMPLETE ECHO (COLORFLOW,DOPPLER) [address] [address] PH: [phone] ECHOCARDIOGRAM REPORT Pt. Name: JANICE SHULTZ : 1945 70 Date: 11/25/2015/3:39:53 PM years MR# [id number] Sex: M Blood Pressure: 153/90 Ht: 71 in BSA: 2.04 Location: 3323 Wt: 184 lb Technologist: Referring Physician: [id number] MARIA TERESA DENT Indications: Abnormal ECG Study [...] Pk Grad RA Pressure 5 mmHg RVSP [id number] . Pulmonary Artery: MR PISA Radius MR Alias Velocity MR VMax MR EROA TV Inflow E max TV Mn Grad PV PV Vmax PV Pk Grad PV Mn Grad COMPARISON TO PREVIOUS EXAMINATION: Final Normal [facility] BASIC METABOLIC PANELon 04- Anion gap 6 mmol/L Abnormal 02-25 [facility] Comment on above: Performed By: #### L AB15 ####[facility]ENTERIA [id number] [facility] C[place] [address] [facility]#### [id number] ####[facility] CLIA [id number] [place] [address] [facility] [place] [id number] [place], [place] [phone] BUN (urea nitrogen) 13 mg/dL Normal -[address] [facility] Comment on above: Performed By: #### L AB15 ####[facility]ENTERIA [id number] [place] [address] [place]#### [id number] ####[facility] [place] [id number] [place] [address] [facility], [place] [phone] Calcium 8.6 mg/dL Normal 8.5-10.1 [facility] Comment on above: Performed By: #### L AB15 ####[facility] [id number] [place] [address] [place]#### [id number] ####[facility] [place] [id number] [place] [address] [facility], [place] [phone] Chloride 105 mmol/L Normal 98-107 [facility] Comment on above: Performed By: #### L AB15 ####[facility] [id number] [place] [address] [place]#### [id number] ####[facility] [place] [id number] [place] [address] [facility], [place] [phone] CO2 31 mmol/L Normal 21-32 [facility] Comment on above: Performed By: #### L AB15 ####[facility] [id number] [place] [address] [place]#### [id number] ####[facility] [place] [id number] [place] [address] [facility], [place] [phone] Creatinine 1.12 mg/dL Normal 0.60-1.30 [facility] Comment on above: Performed By: #### L AB15 ####[facility] CLIA [id number] [place] [address] [place]#### [id number] ####[facility] CLIA [id number] [place] [address] [facility], [phone] eGFR (black) mL/min/{1.73_m2} Normal >60 [facility] Comment on above: Result Comment: GFR is estimated using creatinine, age, gender, and race. Patient's values should be interpreted as a trend. For additional information: [email or web address] Performed By: #### L AB15 ####[facility]ENTERIA [id number] [place] [address] [place]#### [id number] ####[facility]IA [id number] [place] [address] [facility], [place] [phone] eGFR (non-black) mL/min/{1.73_m2} Normal >60 [facility] Comment on above: Result Comment: GFR is estimated using creatinine, age, gender, and race. Patient's values should be interpreted as a trend. For additional information: [email or web address] Performed By: #### L AB15 ####[facility] CLIA [id number] [place] [address] [place]#### [id number] ####[facility] CLIA [id number] [place] [address] [facility], [place] [phone] Glucose mass conc 112 mg/dL Abnormal 74-106 [facility] Comment on above: Performed By: #### L AB15 ####[facility] [id number] [place] [address] [place]#### [id number] ####[facility] [place] [id number] [place] [address] [facility] [place] [id number], [place] [phone] Potassium molar conc 3.8 mmol/L Normal 3.5-5.1 [facility] Comment on above: Performed By: #### L AB15 ####[facility] [id number] [place] [address] [place]#### [id number] ####[facility] [id number] [place] [address] [facility] [place] [id number] [address], [place] [phone] Sodium 142 mmol/L Normal 136-145 [facility] Comment on above: Performed By: #### L AB15 ####[facility] [id number] [place] [address] [place]#### [id number] ####[facility] [id number] [place] [address] [facility] [place] [id number] [address], [place] [phone] CBC W/DIFFon 11-25-2015 Basophils/100 WBC Auto (Bld) 1 % Normal [facility] Comment on above: Performed By: #### L AB293 ####[facility] [id number] [place] [address], [address] BSA (Body Surface Area) 0.0 K/uL Normal 0.0-0.1 [facility] Comment on above: Performed By: #### L AB293 ####[facility]ENTERIA [id number] [place] [address], [place] [address] [place] Eosinophils 5 10*3/uL Normal [facility] Comment on above: Performed By: #### L AB293 ####[facility]ENTERIA [id number] [place] [address], [address] Eosinophils 0.3 10*3/uL Normal 0.0-0.4 [facility] Comment on above: Performed By: #### L AB293 ####[facility]ENTERIA [id number] [place] [address], [address] Erythrocyte distribution width Auto Ratio (RBC) 13.1 % Normal 11.7-15.2 [facility] Comment on above: Performed By: #### L AB293 ####[facility]ENTERIA [id number] [place] [address], [address] Erythrocytes (RBC) 5.27 10*6/uL Normal 4.30-5.86 [facility] Comment on above: Performed By: #### L AB293 ####[facility] CENTERIA [id number] [place] [address], [address] Hematocrit (HCT) 45.3 % Normal 39.0-51.5 [facility] Comment on above: Performed By: #### L AB293 ####[facility]ENTERIA [id number] [place] [address], [address] Hemoglobin mass conc (Bld) 15.4 g/dL Normal 13.1-17.6 [facility] Comment on above: Performed By: #### L AB293 ####[facility]ENTERIA [id number] [place] [address], [address] Lymphocytes 1.8 10*3/uL Normal 0.8-3.6 [facility] Comment on above: Performed By: #### L AB293 ####[facility]ENTERIA [id number] [place] [employer]aceuticalsBELogMeIn, [facility]31 [facility] Lymphocytes 30 10*3/uL Normal [facility] Comment on above: Performed By: #### L AB293 ####[facility] [id number] [place] [employer]BEL[employer]MeIn, [address] MCH 29.1 pg Normal 28.4-33.4 [facility] Comment on above: Performed By: #### L AB293 ####[facility] [id number] PENTChameleon BioSurfaces Predixion SoftwareBELogMeIn, [address] MCHC mass conc (RBC) 33.9 g/dL Normal 31.1-37.0 [facility] Comment on above: Performed By: #### L AB293 ####[facility] [id number] P[facility]TRacerTimesSPARROW [facility], [address] MCV 86.0 fL Normal 85.0-99.0 [facility] Comment on above: Performed By: #### L AB293 ####[facility] [id number] PENTChameleon BioSurfaces Predixion SoftwareBEVishay Precision GroupSPARROW IONIA HOSPITAL, [facility]31 [facility] Monocytes 10 10*3/uL Normal [facility] Comment on above: Performed By: #### L AB293 ####[facility] [id number] PENTBenchBEL[employer]MeIn, [address] Monocytes 0.6 10*3/uL Normal 0.3-0.9 [facility] Comment on above: Performed By: #### L AB293 ####[facility] [id number] PENTBenchBELogMeIn, [facility]31 [facility] Neutrophils 3.2 10*3/uL Normal 2.0-7.3 [facility] Comment on above: Performed By: #### L AB293 ####[facility] [id number] [place] [address] [facility] Neutrophils 54 10*3/uL Normal [facility] Comment on above: Performed By: #### L AB293 ####[facility]ENTERIA [id number] [place] [address] [facility] Platelets 177 10*3/uL Normal 154-393 [facility] Comment on above: Performed By: #### L AB293 ####[facility]ENTERIA [id number] [place] [address], [facility]31 [facility] WBC (Leukocytes) 6.0 10*3/uL Normal 4.0-10.5 [facility] Comment on above: Performed By: #### L AB293 ####[facility] [id number] [place] [facility], [facility]31 [facility] CBC W/O DIFFon 11-25-2015 Erythrocyte distribution width Auto Ratio (RBC) 13.1 % Normal 11.7-15.2 [facility] Comment on above: Performed By: #### L [id number] ####[facility]ENTERIA [id number] [place] [facility] Erythrocytes (RBC) 5.32 10*6/uL Normal 4.30-5.86 [facility] Comment on above: Performed By: #### L [id number] ####[facility] [id number] [place] [facility], [facility] Hematocrit (HCT) 46.0 % Normal 39.0-51.5 [facility] Comment on above: Performed By: #### L [id number] ####[facility] [id number] [place] [facility], [facility] Hemoglobin mass conc (Bld) 15.6 g/dL Normal 13.1-17.6 [facility] Comment on above: Performed By: #### L [id number] ####[facility] [id number] [facility], [address] MCH 29.3 pg Normal 28.4-33.4 [facility] Comment on above: Performed By: #### L [id number] ####[facility]ENTERIA [id number] [facility], [address] MCHC mass conc (RBC) 34.0 g/dL Normal 31.1-37.0 [facility] Comment on above: Performed By: #### L [id number] ####[facility] [id number] [address] MCV 86.4 fL Normal 85.0-99.0 [facility] Comment on above: Performed By: #### L [id number] ####[facility]IA [id number] [address] Platelets 176 10*3/uL Normal 154-393 [facility] Comment on above: Performed By: #### L [id number] ####[facility]IA [id number] [address] WBC (Leukocytes) 7.4 10*3/uL Normal 4.0-10.5 [facility] Comment on above: Performed By: #### L [id number] ####[facility]IA [id number] [address]-ANGIO HEAD W AND/OR WO CO [...] by: Louis Mead D.O., 11/26/2015 6:28 AM [facility] CT-ANGIO NECK W AND/OR WO CO N [...] by: Louis Mead D.O., 11/26/2015 6:28 AM [facility] CT-HYPERACUTE HEAD WO CON [facility] 11-25-2015 CT-HYPERACUTE HEAD WO CON STROKE [...] by: Carlos Ibanez DO, 11/25/2015 6:06 AM [facility] Consultson 11-25-2015 Consults Consults by Chau anthony MD at 11/25/2015 3:09 PMAuthor: ANDRESSA Chaconervice: NeurologyAuthor Type: PhysicianFiled: 11/25/2015 5:04 PMNote Time: 11/25/2015 3:09 PMNote Type: ConsultsStatus: SignedEditor: Chau Mehta MD (Physician) Consult Orders: 1. IP Consult to Neurology [[id number]] ordered by Jailene Flores MD at 11/25/15 1102[facility]Patient [facility] : 1945Subjective:Reason for consult: Stroke like mhjnetrt14 y.o. -handed male presenting to [facility] emergency department around 6 AMtoday with [...] mgOralNIGHTLY AT BEDTIMEContinuous Infusions: -0.9 % sodium lhisrqzw046 mL/hr (11/25/15 1107)PRN Meds:.ALPRAZolam, hydrALAZINE, ondansetron OR [...] bruits, neck supple, no meningeal signs;Heart: RRR, T4K0Dchwl: CTABExt: no edema, no calf tenderness b/lPsych: [...] Decreased with the left hand otherwise normal Eavb-aj-Nhyz: no dysmetria b/l. Anbgvn-vt-Adeh: Left upper extremity dysmetria.Gait and stance: Gait: [...] free to contact us.Chau Mehta MD, 11/25/2015 [facility] Consults Consults by Valarie Mendez RD at 11/25/2015 1:48 PMAuthor: ADDY Nicoleervice: NutritionAuthor Type: Registered DietitianFiled: 11/25/2015 1:48 PMNote Time: 11/25/2015 1:48 PMNote Type: ConsultsStatus: SignedEditor: Valarie Mendez RD (Registered Dietitian) Consult Orders: 1. IP Consult To Nutrition Care [[id number]] ordered by Jelena Sommer MD at 11/25/15 [...] Valarie Mendez RD, LD 11/25/2015 1:48 PM [facility] ED Provider Noteson 11-25-19 16 ED Provider [...] at bedtime.ALLERGIESNo Known AllergiesPHYSICAL EXAMVITAL SIGNS:ED Triage UshhtqSU65/14/16 8690674/96 exLuBauc19/14/16 355421.8 ?F (36.6 ?C)Heart Rate11/25/15 206503Djml96/14/16 723748WpR740/14/16 7803994 %Weight--Gee Coma Scale Score11/25/15 275701NSR (Calculated)--Constitutional : Well developed, Well nourished, No [...] oriented x 3,GCS 15, NIH stroke scale re7Ediodkyznsz: Affect normal, Judgment normal, Mood normal.EKGEKG InterpretationInterpreted by: Kay JeanTime of EKRhythm: normal sinusRate: normalAxis: normalEctopy: noneConduction: normalST Segments: no acute changeT Waves: no acute changeQ Waves: noneClinical Impression: no acute changesComparison: None available at this timeLabs ReviewedBASIC METABOLIC PANEL - Abnormal; Notable for the following:Anion Gap6 (*)7-16 mmol/KQlbwkPidtfpw669 (*)74-106 mg/dLFinalAll other components within normal limitsPARTIAL THROMBOPLAST - Abnormal; Notable for the following:PTT42.8 (*)27.0-39.0 SecondsFinalAll other components within normal limitsGLUCOSE POC RESULTS - Abnormal; Notable for the following:POC Wperjza919 (*)70-100 mg/dLFinalAll other components within normal limitsNarrative:Point [...] the case in depth with the neurologist monument stonecutter and they concur. Patient hasanelectrolyte abnormalities or signs of infection at this time. Patient was reexamined multipletimes here in the emergency department. Patient seems to be improving slightly. Patient will beadmitted to medical service with neurology consult and further observation and care. Patient andfamily understand and agree with this plan.The patient's scheduled substances prescription history was reviewed using the [employer] database.This patient wasn't found to have a prescription history that was concerning for drug abusediversion or aberrant behavior.FINAL EEWLNOZLZQAZQ-6-OSGCW-10-CM1 .CVA (cerebral vascular accident)434.91I63.9I have personally provided 30 minutes of critical care time (excluding separately listedprocedures) through obtaining a history, examining the patient, reviewing relevant medical records,discussing care with family and/or other providers, performing multiple reassessments and directingcare.Electronically signed by: Kay Jean, 11/25/2015Micwilli Jean, DO11/25/15 0703 [facility] History and Physicalon 11-24 History and Physical HANDP by Jailene huber MD at 11/25/2015 10:54 AMAuthor: ANDRESSA Russellervice: Internal MedicineAuthor Type: PhysicianFiled: 11/25/2015 3:16 PMNote Time: 11/25/2015 10:54 AMNote Type: HANDPStatus: AddendumEditor: Jailene Flores MD (Physician)Related Notes:Original Note by Jailene Flores MD (Physician) filed at 11/25/2015 11:01 AMHistory and PhysicalASSESSMENT AND PLAN:1. TIA vs evolving stroke2. HTN3. HL4. Hx of [place] in past5. Chest painPLAN:Patient came to hospital [...] at bedtime.ALLERGIESNo Known AllergiesPHYSICAL EXAMVITAL SIGNS:ED Triage OtvotxTC55/14/16 7636808/96 vxOoFdrn63/14/16 625601.8 ?F (36.6 ?C)Heart Rate11/25/15 964668Uxof32/14/16 073123RsA558/14/16 9678838 %Zcwhmo59/14/16 0157924 lb (83.462 kg)Joseph Coma Scale Score11/25/15 637003YGE (Calculated)11/25/15 826571.7Gen: NAD, looks appropriate for ageEye: No Discharge,ESTHER, [...] sensory call. Lt. 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,Cranial Nerve II-XII grosslyintact and symmetricalPsychs: Appropriate mood [...] Abnormal; Notable for the following:Anion Gap6 (*)7-16 mmol/WTcpetXsfzxkg346 (*)74-106 mg/dLFinalAll other components within normal limitsPARTIAL THROMBOPLAST - Abnormal; Notable for the following:PTT42.8 (*)27.0-39.0 SecondsFinalAll other components within normal limitsGLUCOSE POC RESULTS - Abnormal; Notable for the following:POC Iwugszr353 (*)70-100 mg/dLFinalAll other components within normal limitsNarrative:Point [...] Ibanez DO, 11/25/2015 6:03 AMVAS-CAROTID DOP BILAT 41627 (Results Pending)I have personally reviewed all imaging and agree with the read(s) as outlined above.Jailene Flores MD11/25/2015 @ 10:54 AM Normal [facility] MRI-HEAD WO CONTRASTon 11-24 MRI-HEAD WO [...] Shon Cerda M.D., 11/25/2015 9:10 AM Normal [facility] PARTIAL THROMBOPLASTon 11-24 PARTIAL THROMBOPLASTIN TIME MECHANICAL 42.8 Seconds Abnormal 27.0-39.0 [facility] Comment on above: Performed By: #### L [id number] ####[facility] CLIA [id number] [place] [address] [facility], [place] [phone]#### [id number] ####[facility]ENTERIA [id number] [place] [address] [facility] PROTIME-INRon 11-25-2015 INR Coag RelTime (PPP) 1.0 {INR} Normal 0.9-1.2 [facility] Comment on above: Performed By: #### L [id number] ####[facility]IA [id number] [place] [address], [facility], [phone]#### [id number] ####[facility]IA [id number] [place] [address], [address] Prothrombin time (PT) Coag time (PPP) 11.1 s Normal 9.3-12.3 [facility] Comment on above: Performed By: #### L [id number] ####[facility]IA [id number] [place] [address], [facility]31 [facility], [phone]#### [id number] ####[facility]IA [id number] [place] [address], [facility]31 [facility] INR Coag RelTime (Bld) Normal [facility] Comment on above: Result Comment: Cond ition and INR Therapeutic Range:Deep venous thrombosis 2.0-3.0Pulmonary embolism 2.0-3.0Acute myocardial infarction 2.0-3.0Atrial fibrillation 2.0-3.0Antiphospholipid syndrome (no other risk factors) 2.0-3.0Antiphospholipid syndrome with recurrent thromboembolism 2.5-3.0Bioprosthetic (tissue) valve 2.0-3.0Mechanical prosthetic valves 2.0-3.0 or 2.5-3.5 depending on valve type and location Performed By: #### L [id number] ####[facility]ENTERHI [id number] [place] [address] [facility], [place] [phone]#### [id number] ####[facility]ENTERIA [id number] [place] [address] [facility] Progress Noteson 11-25-2015 Progress Notes Progress Notes by JASPER Torrez at 11/25/2015 4:23 PMAuthor: JASPER DoService: MEDICAL CODING AUDITOR EvaluationAuthor Type: Speech and LanguagePathologistFiled: 11/25/2015 4:38 PMNote Time: 11/25/2015 4:23 PMNote Type: Progress NotesStatus: AddendumEditor: JASPER Do (Speech and Language Pathologist)Related Notes:Original Note by JASPER Do (Speech and Language Pathologist) filedat 11/25/2015 4:37 PMRehab MedicineSpeech Therapy EvaluationAdmit date: 11/25/2015 Today's Date: 11/25/2015Patient Name/MR#: Janice Shultz [id number]:5' 11 (1.803 m) Weight: 184 lb (83.462 kg)Current Room: [address]ESsefchuti Diagnosis: CVA (cerebral vascular accident) [I63.9]Admitting Provider:NARCISO [...] here visiting family, as pt is from [facility], when this occurred; pt andwife share IADL; [...] restrictedPragmatics: WFL; pt appropriately interacted with this MEDICAL CODING AUDITOR, made eye contact, appeared tounderstand body gestures [...] this date.Cognition: WFL; demonstrated appropriate short and longterm memory recall on all tasksadministered. Demonstrated simple [...] and patient working towards planned discharge:HomeHome w/ Bmtdtd51Ni Supervision/AssistHome Care TherapyInpt Rehab UnitSNF/ECFOP SLPPlan: (as discussed with patient/family and agreed upon)The MEDICAL CODING AUDITOR Rehab Plan will consist of, but not limited to the following:AphasiaCog/Linguis ticCommunication/Language TherapyFacial e-stimVideostrobeDysarthriaA praxiaVoice D/C skilled MEDICAL CODING AUDITOR services as the patient is at pre-morbid baselineThank you for allowing me to participate in the care of this patient.Carrie Macias MA CCC-SLPTime In: 1603 Time Out: 1622Total Treatment Time: 19 minutes [facility] Progress Notes Progress Notes by JASPER Torrez at 11/25/2015 3:58 PMAuthor: Liliya Doe: (none)Author Type: Speech and Language PathologistFiled: 11/25/2015 4:00 PMNote Time: 11/25/2015 3:58 PMNote Type: Progress NotesStatus: SignedEditor: JASPER Do (Speech and Language Pathologist)[facility] [place] Medicine and RehabilitationAdmit date: 11/25/2015 Today's Date: 11/25/2015Patient Name/MR#: Janice Shultz [id number] was attempted for at 1544 for an initial speech evaluation.Therapy was not completed secondary to pt currently with diagnostic technician in room.Will reattempt as appropriate.Thank you for involving me in the care of this patient.Carrie Macias MA CCC-MEDICAL CODING AUDITOR [facility] Progress Notes Progress Notes by JASPER Naranjo ra at 11/25/2015 10:23 AMAuthor: Carito Rebolledo: (none)Author Type: Speech and Language PathologistFiled: 11/25/2015 11:32 AMNote Time: 11/25/2015 10:23 AMNote Type: Progress NotesStatus: SignedEditor: JASPER Rebolledo (Speech and Language Pathologist)[facility] [place] Medicine and RehabilitationAdmit date: 11/25/2015 Today's Date: 11/25/2015Patient Name/MR#: Janice Shultz [id number] Speech Evaluation Attempt:Speech -Date Initial Eval Attempted: 11/25/15peech -Time Initial Eval Attempted: 1023Speech -Reason Eval Not Completed: Patient Unavailable, Other (comment)Comments: Patient working with PT/OT.Speech evaluation will be reattempted as appropriate.Thank you for involving me in the care of this patient.Maria C Peck MA, CCC-MEDICAL CODING AUDITOR [facility] Progress Notes Progress Notes by STACI Nichole at 11/25/2015 10:16 AMAuthor: ESTELLE Matamoroservice: (none)Author Type: Social WorkerFiled: 11/25/2015 10:22 AMNote Time: 11/25/2015 10:16 AMNote Type: Progress NotesStatus: SignedEditor: STACI Matamoros (Tilt Tray Driver)SOCIAL WORK INITIAL ASSESSMENTName:Janice Shultz Date:11/25/2015MR#:[id number] B:1945Room #:R3323/B2666XSrk/Sex:70 y.o. maleAdmit Date:11/25/2015Admitting:Same er ANDRESSA Floreservices:Discharge planningAgency:noneReferral [...] his daughter and grandchildren. He usually resides [place], [place] with his and is fully independent. Discussed with patient services available bydischarge planning. The patient denied any need for services from discharge planning. Social workto continue to follow. CLARA aMtamoros, STACI [facility] REPEAT TROPONIN 120 MINUTES FROM FIRST DRAWon 11-25-2015 Troponin I.cardiac mass conc ng/mL Normal 0.000-0.[address] [place] [address] Comment on above: Performed By: #### L [id number] ####[facility] CLIA [id number] [place] [address] [place] Troponin I.cardiac mass conc Normal [facility] Comment on above: Result Comment: Trop onin I 0.045-0.600 is abnormal but not clinically relevant. Please correlate with other clinical findings. Troponin I >0.600 is clinically relevant in accordance with WHO criteria. Performed By: #### L [id number] ####[facility]ENTERIA [id number] [place] [address] [place] TROPONIN Ion 11-25-2015 Troponin I.cardiac mass conc ng/mL Normal 0.000-0.[address] [place] [address] Comment on above: Performed By: #### L [id number] ####[facility]ENTERIA [id number] [place] [address] [facility] [place] [phone] Troponin I.cardiac mass conc Normal [facility] Comment on above: Result Comment: Trop onin I 0.045-0.600 is abnormal but not clinically relevant. Please correlate with other clinical findings. Troponin I >0.600 is clinically relevant in accordance with WHO criteria. Performed By: #### L [id number] ####[facility]ENTERIA [id number] [place] [address] [facility], [phone] Performed By: #### L AB15 ####[facility] CLIA [id number] [place] [address] [place]#### [id number] ####[facility]ENTERIA [id number] [place] [address] [phone] Troponin I.cardiac mass conc ng/mL Normal 0.000-0.04 5 [facility] Comment on above: Performed By: #### L AB15 ####[facility] [id number] [place] [address] [place]#### [id number] ####[facility] [id number] [place] [address], [facility]31 [place]INDU AND [place] [phone], [phone] URINALYSIS W/REFLEX MICROSCO PYon 11-25-2015 BILIRUBIN, UA Negative Normal Negative [facility] Comment on above: Performed By: #### L [id number] ####[facility] [id number] [place] [address] [place] BLOOD, UA Negative Normal Negative [facility] Comment on above: Performed By: #### L [id number] ####[facility] [id number] [place] [address] [place] GLUCOSE, UA Negative Normal Negative [facility] Comment on above: Performed By: #### L [id number] ####[facility] [id number] [place] [address] [place] KETONES, UA Negative Normal Negative [facility] Comment on above: Performed By: #### L [id number] ####[facility]IA [id number] [place] [address] [place] LEUKOCYTES, UA Negative Normal Negative [facility] Comment on above: Performed By: #### L [id number] ####[facility]IA [id number] [place] [address] [place] PH, UA 6.5 Normal 5.0-8.0 [facility] Comment on above: Performed By: #### L [id number] ####[facility]ENTERIA [id number] [place] [address] [place] PROTEIN, UA Negative Normal Negative [facility] Comment on above: Performed By: #### L [id number] ####[facility] CLIA [id number] [place] [address] [place] SPECIFIC GRAVITY, UA 1.025 Normal 1.001-1 .03 5 [facility] Comment on above: Performed By: #### L [id number] ####[facility]ENTERIA [id number] [place] [address] [place] Urine, appearance Clear Normal Clear [facility] Comment on above: Performed By: #### L [id number] ####[facility]IA [id number] [place] [address] [place] Urine, color Yellow Normal Yellow [facility] Comment on above: Performed By: #### L [id number] ####[facility]IA [id number] [place] [address] [place] Urine, nitrite presence Negative Normal Negative [facility] Comment on above: Performed By: #### L [id number] ####[facility]IA [id number] [place] [address] [place] UROBILINOGEN, UA 0.2 EU/dL Normal 0.2-1.0 [facility] Comment on above: Performed By: #### L [id number] ####[facility]ENTERIA [id number] [place] [address] [place] VAS-CAROTID DOP BILAT 82850s n 11-25-2015 VAS-CAROTID DOP BILAT 31507 A result will not be generated for [...] by: Patel Villatoro DO, 11/25/2015 11:24 AM [facility] XR-CHEST PORTABLE Kiana XR-CHEST PORTABLE STAT XR-CHEST [...] by: Carlos Ibanez DO, 11/25/2015 6:03 AM [facility] Vital Signs Date Time Vital Sign Value Performing Clinician Facility 10-04-2023 08:29-0500 Diastolic blood pressure 70 mm[Hg] MD Sherif Paredes Work Phone: [facility] [place] 10-04-2023 08:29-0500 Systolic blood pressure 120 mm[Hg] MD Sherif Paredes Work Phone: [facility] [place] 10-04-2023 04:52-0500 Heart rate 75 /min MD Sherif Pareeds Work Phone: [facility] [place] 10-04-2023 04:44-0500 Body temperature 98 [degF] MD Sherif Paredes Work Phone: [facility] [place] 10-04-2023 04:44-0500 Respiratory rate 20 /min MD Sherif Paredes Work Phone: [facility] [place] 10-04-2023 04:44-0500 SaO2% (BldA) [Mass fraction] 94 % MD Sherif Paredes Work Phone: [facility] [place] 09-30-2023 05:34-0500 Body weight 79.8 kg MD Sherif Paredes Work Phone: [facility] [place] 09-26-2023 09:35-0500 Body height 180.34 cm MD Sherif Paredes Work Phone: [facility] [place] 12-12-2022 14:00-0400 Body height 180.34 cm Trinh Leo Other [facility] Other 12-12-2022 14:00-0400 Body mass index (BMI) [Ratio] 25.66 kg/m2 Trinh Santanalm Other [facility] Other 12-12-2022 14:00-0400 Body temperature 97.3 [degF] Trinh Santanalm Other [facility] Other 12-12-2022 14:00-0400 Body weight 83.46 kg Trinh Santanalm Other [facility] Other 12-12-2022 14:00-0400 Diastolic blood pressure 82 mm[Hg] Trinh Leo Other [facility] Other 12-12-2022 14:00-0400 SaO2% (BldA) [Mass fraction] 93 % Trinh Santanalm Other [facility] Other 12-12-2022 14:00-0400 Systolic blood pressure 124 mm[Hg] Trinh Santanalm Other [facility] Other 03-29-2022 10:28-0400 Body height 180.34 cm Sherif Lofton Def[place] Work Phone: [facility] 250 DO Work Phone: 03-29-2022 10:28-0400 Body mass index (BMI) [Ratio] 26.5 kg/m2 Sherif Lofton [place] Work Phone: [facility] 250 DO Work Phone: 03-29-2022 10:28-0400 Body surface area Derived from formula 2.06 m2 Sherif Lofton [place] Work Phone: [facility] 250 DO Work Phone: 03-29-2022 10:28-0400 Body weight 86.18 kg Sherif Lofton [place] Work Phone: [facility] 250 DO Work Phone: 03-29-2022 10:28-0400 Diastolic blood pressure 76 mm[Hg] Sherif Lofton [place] Work Phone: [facility] 250 DO Work Phone: 03-29-2022 10:28-0400 Heart rate 60 /min Sherif Lofton [place] Work Phone: [facility] 250 DO Work Phone: 03-29-2022 10:28-0400 Systolic blood pressure 124 mm[Hg] Sherif Lofton [place] Work Phone: [facility] 250 DO Work Phone: 12-06-2021 13:15-0400 Body height 180.34 cm Trinh Santanalm Other [facility] Other 12-06-2021 13:15-0400 Body mass index (BMI) [Ratio] 25.66 kg/m2 Trinh Bailey Other [facility] Other 12-06-2021 13:15-0400 Body weight 83.46 kg Trinh Bailey Other [facility] Other 12-06-2021 13:15-0400 Diastolic blood pressure 72 mm[Hg] Trinh Bailey Other [facility] Other 12-06-2021 13:15-0400 SaO2% (BldA) [Mass fraction] 97 % Trinh Bailey Other [facility] Other 12-06-2021 13:15-0400 Systolic blood pressure 138 mm[Hg] Trinh Bailey Other [facility] Other Encounters Encounter Date Encounter Type Care Provider Facility Start: 10-05-2023 Telephone encounter Eri guadarrama RN Work Phone: [facility] Comment on above: Transition Of Care Start: 10-03-2023 Non-patient / Non-visit MD Reyes id Defrance Work Phone: [facility] Work Phone: Start: 10-03-2023 Non-patient / Non-visit MD Reyes id Defrance Work Phone: [facility] Work Phone: Start: 09-26-2023 Orders Only Anel Llamas RN [facility] Comment on above: 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 (CMS-HCC) (Primary Dx); Other cerebrovascular vasospasm and vasoconstriction Start: 09-26-2023 Non-patient / Non-visit MD Reyes id Defrance Work Phone: [facility] Work Phone: Start: 09-25-2023 End: 10-04-2023 Evaluation and management of inpatient Sherif Paredes Facility:[facility] [place] Start: 09-25-2023 End: 10-04-2023 Evaluation and management of inpatient MD Sherif Paredes Work Phone: [facility] Work Phone: Start: 09-20-2023 End: 09-25-2023 Evaluation and management of inpatient [facility] Start: 09-20-2023 End: 09-25-2023 Evaluation and management of inpatient [facility] Start: 09-20-2023 ambulatory SHERIF PAREDES [facility] Start: 09-20-2023 End: 09-25-2023 Evaluation and management of inpatient [facility] Start: 05-04-[address] [place] Facility: Start: 12-12-2022 End: 12-12-2022 ambulatory Trinh Bailey [facility] [employer] Other Start: 12-12-2022 Patient encounter procedure Trinh jeter [facility] Vascular Surgery Start: 11-24-2022 Rx Renewal Sherif caballero Work Phone: [facility] 250 DO Work Phone: Start: 11-20-2022 Telephone encounter Sherif Avendano Work Phone: [facility] 250 DO Work Phone: Start: 09-12-2022 Rx Renewal Sherif caballero Work Phone: [facility] 250 DO Work Phone: Start: 04-24-2022 End: 04-24-[address] CAITIE PITTS Facility:H1 Start: 04-20-2022 Rx Renewal Sherif caballero Work Phone: [facility] 250 DO Work Phone: Start: 03-29-2022 Office outpatient vi sit 15 minutes Sherif Paredes Work Phone: [facility] 250 DO Work Phone: Start: 02-23-2022 Rx Renewal Sherif Rodas ce Work Phone: [facility] 250 DO Work Phone: Start: 02-04-2022 End: 02-04-[address] EUGENE PICKETT Facility:H1 Start: 12-06-2021 End: 12-06-2021 ambulatory Trinh Bailey Other [facility] [employer] Other Start: 12-06-2021 Follow-up encounter Trinh Balderas [facility] Start: 09-13-2021 End: 09-13-[address] KENY MUELLER Facility:H1 Start: 05-17-2021 Chart Update Sherif Rodas ce Work Phone: [facility] 250 DO Work Phone: Start: 05-17-2021 Patient encounter procedure Da jacyyuri Rolly Defrance Work Phone: [facility] [place] Work Phone: Start: 03-26-2018 Patient encounter PROVIDER UNKNOWN F acility:[id number] Start: 01-23-2018 End: 01-23-2018 Emergency department patient visit PROVIDER NOT IN [facility] Start: 09-07-2016 End: 09-08-2016 Evaluation and management of inpatient JAMESON SHERIDAN [facility] Start: 11-25-2015 End: 11-26-2015 Evaluation and management of inpatient KAY JEAN [facility] Procedures Date Procedure Procedure Detail Performing [...] Screening Adult BMI Screen ing [facility] Start: 09-20-2024 Depression Screening Depression Scre ening [facility] Start: 09-20-2024 Tobacco Screening Tobacco Screening [facility] Start: 11-08-2023 End: 11-08-2023 Patient encounter procedure 11/08/2023 2:00 PM EDT Office Visit [facility] [address] [id number] Gopal Nova MD [address] [place] [address], [address], [address], [address] [place] [address] [facility] Start: 10-22-2023 End: 10-22-2023 Patient encounter procedure 10/22/2023 2:15 PM EDT Office Visit [facility] [address] [place] [address] Sherif Paredes MD [address] [place], [place] [id number] [facility] Start: 10-16-2023 End: 10-16-2023 Patient encounter procedure 10/16/2023 10:15 AM EST Office Visit [facility] [place] [address] Sherif Paredes MD [address] [place] [address] [facility] Start: 10-04-2023 [facility] Start: 09-26-2023 [facility] Start: 09-26-2023 End: 09-26-2024 Event Monitor (In Office) [facility] Work Phone: Comment on above: Expected: 09/26/2023 , Expires: 09/26/2024 Start: 09-25-2023 Hospital admission [facility] Start: 09-25-2023 Referral to clinical kick press setter [facility] Start: 07-23-2023 COVID-19 Vaccine () COVID-19 Vaccine () [facility] Start: 04-26-2023 FUV, Provider: [place], Status: Pen, Time: 10:30 AM FUV, Provider: [place], Status: Pen, Time: 10:30 AM [facility] 250 DO Work Phone: Start: 03-22-2023 FUV, Provider: [place], Status: Pen, Time: 11:20 AM FUV, Provider: [place], Status: Pen, Time: 11:20 AM [facility] 250 DO Work Phone: Start: 03-29-2022 FUV, Provider: [place], Status: Pen, Time: 10:30 AM FUV, Provider: [place], Status: Pen, Time: 10:30 AM [facility] 250 DO Work Phone: Start: 12-20-2021 FUV, Provider: [place], Status: Pen, Time: 11:15 AM FUV, Provider: [place], Status: Pen, Time: 11:15 AM [facility] 250 DO Work Phone: Start: 10-15-2019 Medicare Annual Wellness Visit Medicare Annual Wellness Visit [facility] Start: 2012 Fall Risk Screening Fall Risk Screen [facility] Start: 1966 DTaP,Tdap and Td Vaccines (1 - Tdap) DTaP,Tdap and Td Vaccines (1 - Tdap) [facility] Start: 1965 Adult BMI Follow Up Plan Adult BMI Follow Up Plan [facility] Patient Education Stroke (DC) Le ft-Side Stroke (DC) [facility] Work Phone: Patient referral [facility] Work Phone: Immunizations Immunization Date Immunization Notes Care Provider Fa cili 05-28-2023 Covid-19, Mrna, Lnp- s, Pf, 30 Mcg/0.3 Ml Dose, Edwin-sucrose Anel Llamas RN [facility] 05-28-2023 Covid-19, Mrna, Lnp- s, Pf,edwin-sucrose,30 Mcg/0.3ml Fall23 Anel Llamas RN [facility] 05-28-2023 Influenza Vaccine, Quadrivalent, Adjuvanted Anel Llamas RN [facility] 05-28-2023 Seasonal trivalent influenza vaccine, adjuvanted, preservative free Anel Llamas RN [facility] 04-27-2023 RSV, recombinant, protein subunit RSVpreF, adjuvant reconstituted, 0.5 mL, PF Anel Llamas RN [facility] 05-25-2022 Influenza, High-dose , Quadrivalent Anel Llamas RN [facility] 04-27-2022 Covid-19, Mrna, Lnp- s, Bivalent, Pf, 30mcg/0.3 ml Anel Llamas RN [facility] 04-27-2022 COVID-19, mRNA, LNP- S, PF, 30mcg/0.3mL Dose Anel Llamas RN [facility] 11-10-2021 Covid-19, Mrna, Lnp- s, Pf, 30 Mcg/0.3 Ml Dose, Edwin-sucrose Anel Llamas RN [facility] 11-10-2021 SARS-COV-2 (COVID-19 ) Vaccine, Unspecified Anel Llamas RN [facility] 05-19-2021 Influenza Vaccine, Quadrivalent, Adjuvanted Anel Llamas RN [facility] 05-19-2021 influenza virus vacc ine, unspecified formulation Anel Llamas RN [facility] 04-05-2021 PfizerBioNTech COVI D-19 Vacc 30 MCG/0.3ML Intramuscular Suspension Sherif Lofton Defrance [facility] 250 DO Work Phone: 09-29-2020 [employer] COVI D-19 Vacc 30 MCG/0.3ML Intramuscular Suspension Sherif Rolly Defrance Work Phone: [facility] 250 DO Work Phone: 09-06-2020 [employer] COVI D-19 Vacc 30 MCG/0.3ML Intramuscular Suspension Sherif Rolly Defrance Work Phone: [facility] 250 DO Work Phone: 05-13-2020 influenza, seasonal, injectable Sherif T Defrance Work Phone: [facility] 04-16-2020 Influenza Vaccine, Quadrivalent, Adjuvanted Anel Llamas RN [facility] 04-16-2020 influenza, injectabl e, quadrivalent, preservative free Sherif T Defrance Work Phone: [facility] 04-16-2020 pneumococcal polysaccharide vaccine, 23 valent Sherif Lofton Defrance Work Phone: [facility] 09-25-2019 zoster vaccine recombinant Sherif T Defrance Work Phone: [facility] 07-22-2019 zoster vaccine recombinant Sherif T Defrance Work Phone: [facility] 07-13-2019 pneumococcal conjuga te vaccine, 13 valent Sherif T Defrance Work Phone: [facility] 250 DO Work Phone: 05-14-2019 influenza, high dose seasonal, preservative-free Sherif T Defrance Work Phone: [facility] 250 DO Work Phone: 05-14-2019 Seasonal trivalent influenza vaccine, adjuvanted, preservative free Sherif T Defrance Work Phone: [facility] 04-13-2019 influenza, seasonal, injectable Sherif T Defrance Work Phone: [place] [address] DO Work Phone: 10-20-2018 pneumococcal conjuga te vaccine, 13 valent Sherif T Defrance Work Phone: [facility] 05-27-2018 influenza, high dose seasonal, preservative-free Anel Llamas RN [facility] 05-29-2017 influenza virus vacc ine, unspecified formulation Anel Llamas RN [facility] 05-29-2017 pneumococcal conjuga te vaccine, 13 valent Anel Llamas RN [facility] 04-13-2017 influenza virus vacc ine, unspecified formulation Sherif Lofton Defrance Work Phone: [place] [address] DO Work Phone: 09-08-2016 pneumococcal polysaccharide vaccine, 23 valent Sherif T Defrance Work Phone: [place] [address] DO Work Phone: 08-25-2016 pneumococcal polysaccharide vaccine, 23 valent Sherif T Defrance Work Phone: [place] [address] DO Work Phone: 06-14-2016 influenza, high dose seasonal, preservative-free Sherif T Defrance Work Phone: [place] [address] DO Work Phone: 05-29-2016 influenza virus vacc ine, unspecified formulation Anel Llamas RN [facility] 05-29-2016 influenza, injectabl e, madin juliot canine kidney, preservative free Sherif Rolly Defrance Work Phone: [place] [address] DO Work Phone: 05-13-2016 influenza virus vacc ine, unspecified formulation Sherif Lofton Defrance Work Phone: [facility] 250 DO Work Phone: 05-13-2015 influenza virus vacc ine, unspecified formulation Sherif Lofton Defrance Work Phone: [facility] DO Work Phone: 04-27-2015 influenza virus vacc ine, unspecified formulation Anel Llamas RN [facility] 04-27-2015 influenza, seasonal, injectable Sherif Lofton Defrance Work Phone: [facility] 250 DO Work Phone: 04-26-2015 pneumococcal polysaccharide vaccine, 23 valent Sherif Lofton Defrance Work Phone: [facility] 250 DO Work Phone: 05-13-2014 influenza virus vacc ine, unspecified formulation Sherif Lofton Defrance Work Phone: [facility] 250 DO Work Phone: 05-13-2013 pneumococcal polysaccharide vaccine, 23 valent Sherif Lofton Defrance Work Phone: [facility] 250 DO Work Phone: 09-06-2009 novel influenza-H1N1 -09, preservative-free, injectable Sherif Lofton Defrance Work Phone: [facility] 250 DO Work Phone: Payers Date Payer Category Payer Medicare A[employer] MEDICARE A ETNA MEDICARE PLAN (PPO) [id number] 2023-Present [phone] [address] [place] [address] [id number] 2022 Self-pay [id number] 1960 Private Health Insurance [id number] 1947 Unknown [id number] 93 1947 Unknown [id number] 93 1947 Unknown [id number] 93 1947 Unknown [id number] [id number] 56 1947 Unknown [id number] [id number] 286 1947 Unknown [id number] [id number] 286 1947 Unknown [id number] [id number] 286 1947 Unknown [id number] [id number] 286 1947 Unknown [id number] [id number] 286 1947 Unknown [id number] 286 1947 Unknown [id number] 286 Medicare [id number] Medicare Medicare [id number] Unknown [id number] Unknown Unknown [place] [id number] Unknown [id number] 31 Unknown [id number] 31 Social History Date Type Detail Facility Start: 09-23-2020 End: 09-25-2023 Occasional alcohol use Occasional alcohol use [facility] Start: 09-23-2020 End: 09-25-2023 Sex Assigned At [facility] Start: 01-31-2018 End: 09-27-2023 Tobacco smoking status NHIS Never smoked tobacco [facility] Start: 01-31-2018 Tobacco use and exposure Smokeless tobacco non-user [facility] Start: 09-20-2023 Alcohol intake Ex-drinker (finding) [facility] Has the Vigilos, Soflow, or Evi threatened to shut off services in your home in past 12Mo No [facility] How often to you hav e a drink containing alcohol? Never [facility] How many standard drinks containing alcohol do you have on a typical day? Patient does not drink [facility] Start: 1945 Sex Assigned At Not on file P [facility] Start: 1945 Sex Assigned At Male F [facility] Medical Equipment Procedure Code Equipment Code Equipment Origin al Text Equipment Identifier Dates Endarterectomy, carotid Cardiovascular patch, animal-derived [id number] [facility] Start: 05-10-2020 Goals Date Patient Goal Desired Activity /State Personal health goal Comment on above: Formatting of this n ote might be different from the original. 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 Baseline [facility] Work Phone: 09-25-2023 Functional status Disability Sta tus Patient at Baseline [facility] Work Phone: Mental Status Date Assessment Result Facility 10-04-2023 Cognitive function Cognitive Sta tus Patient at Baseline [facility] Work Phone: Clinical Notes 12-06-2021 [...] for administrative reasons. documented in this encounter [employer] 10-05-2023 Telephone encounter Note A user error has taken place: encounter opened in error, closed for administrative reasons. [employer] Work Phone: 10-05-2023 Miscellaneous Notes Transition of Care Additional Questions/Concerns Requiring PCP Follow-Up: may call to change BEL[facility] appt. This documentation is being used for Transition of Care purposes: Yes Goal: Patient will demonstrate a safe transition from facility to home Diagnosis on Discharge: CVA Impaired mobility and ADL's Vertigo History of cardiac catheterization HTN Hyperlipidemia Discharge Specialty: Neurology Name of Discharging Facility: [facility] rehab Patient was at [facility] 09/20/23 - 09/25/23 Date of Facility Discharge: 09/25/23 - 10/04/23 Date of Interactive Contact and Name of Yarn Washer: Spoke with Janice on 10/05/23 Medication Review Completed: Yes Medication Reconciliation Questions/Concerns: Tylenol 500 mg every 4 hours as needed Meclizine 25 mg every 8 hours as needed for dizziness Scopolamine patch every 72 hours as need for dizziness Discontinue- Rosuvastatin Follow Up Appointments with Providers: Primary: Sherif Paredes MD BEL[facility]N 10/16/23 @ 3:15 Specialty: OP therapy at [facility] Specialty: Neurology Dr Rosado - 10/17/23 @ [...] Check blood sugars at breakfast and dinner stem teacher placed day of discharge and follow instructions [...] Eri Martin RN, can be reached at [phone] and will follow for a minimum of 30 days following hospitalization. Communication with Home Health Agencies and Other Services Utilized/Needed by the Patient: Scheduled. documented in this encounter [email or web address] Telephone encounter Note Transition of Care Additional Questions/Concerns Requiring PCP Follow-Up: may call to change BELÉN appt. This documentation is being used for Transition of Care purposes: Yes Goal: Patient will demonstrate a safe transition from facility to home Diagnosis on Discharge: CVA Impaired mobility and ADL's Vertigo History of cardiac catheterization HTN Hyperlipidemia Discharge Specialty: Neurology Name of Discharging Facility: [facility] rehab Patient was at [facility] 09/20/23 - 09/25/23 Date of Facility Discharge: 09/25/23 - 10/04/23 Date of Interactive Contact and Name of Yarn Washer: Spoke with Janice on 10/05/23 Medication Review Completed: Yes Medication Reconciliation Questions/Concerns: Tylenol 500 mg every 4 hours as needed Meclizine 25 mg every 8 hours as needed for dizziness Scopolamine patch every 72 hours as need for dizziness Discontinue- Rosuvastatin Follow Up Appointments with Providers: Primary: Sherif Paredes MD BEL[facility]N 10/16/23 @ 3:15 Specialty: OP therapy at [facility] Specialty: Neurology Dr Rosado - 10/17/23 @ [...] Check blood sugars at breakfast and dinner stem teacher placed day of discharge and follow instructions [...] Eri Martin RN, can be reached at [phone] and will follow for a minimum of 30 days following hospitalization. Communication with Home Health Agencies and Other Services Utilized/Needed by the Patient: [employer] Work Phone: 10-05-2023 Telephone encounter Note Scheduled. [employer] 10-03-2023 Progress note Note Date/Time October 03, 2023 1:35pm [facility] [address] [place] [address] Hospitalist Progress Note Signed Patient: Janice Shultz MR#: [id number] : 1945 Acct:[id number] Age/Sex: 78 / M Adm Date: 4 Loc: Room: [address] [place] [address] Type: ADM IN Attending Dr: Donovan La [...] mg 09/25/23 15:43 Bisacodyl 10 Mg Supp.Rect DE 09/24/24 15:42 DAILY PRN Constipation Docusate Sodium 100 mg 09/25/23 15:43 09/30/23 09:07 Docusate 100 Mg Capsule PO 09/24/24 15:42 100 mg BID PRN Administration Constipation Docusate Sodium 283 mg 09/25/23 15:43 Docusate Enema 283 Mg/5 Ml Enema DE 09/24/24 15:42 DAILY PRN Constipation Fish Oil 1,000 mg 09/25/23 21:00 10/03/23 09:11 Olympia-3/Fish Oil 1,000 Mg Capsule PO 09/24/24 20:59 [...] sugars reviewed, well-controlled 2. Hypertension, CAD hx [place]/ stents, HLD?metoprolol, Fish oil, ASA. Blood pressures reviewed, well-controlled 3. BPH?tamsulosin, monitor for retention Documented By: Sarah Malhotra APRN 10/03/23 1327 Signed By: <Electronically signed by NAN Malhotra> 10/03/23 1426 <Electronically signed by Niurka Chung MD> 10/03/23 1644 [facility] Work Phone: 1(160) 474-464302-21-2024 Progress note Author Hernan Minaya [facility] October 03, 2023 2:33pm Note Date/Time October 03, 2023 2:33pm [facility] [address] [place] [address] Physiatry(Rehab) Progress Note Signed Patient: Janice Shultz MR#: [id number] : 1945 Acct:[id number] Age/Sex: 78 / M Adm Date: 4 Loc: Room: [address] [place] [address] Type: ADM IN Attending Dr: Donovan La MD Copies to: ~ Date of Service: 10/03/2023 Subjective Subjective Narrative: Mr. Shultz is a 78 year old male with PMH previous CVA in 2017, HTN, CAD and CABG who presents to [facility] rehab following acute hospitalization for left PICA stroke with hemorrhagic transformation. The patient initially presents to [facility] for evaluation for 5 days vertigo with N/V, blurred vision, and gait instability. He reportedly had a fall1 day prior to admission due to vertigo. Non contrast CTH was done and demonstrated evidence of hemorrhage in the PICA territory. Patient was transferred to [facility]. MRI was done andconfirmed PICA ischemic stroke [...] mg 09/25/23 15:43 Bisacodyl 10 Mg Supp.Rect DE 09/24/24 15:42 DAILY PRN Constipation Docusate Sodium 100 mg 09/25/23 15:43 09/30/23 09:07 Docusate 100 Mg Capsule PO 09/24/24 15:42 100 mg BID PRN Administration Constipation Docusate Sodium 283 mg 09/25/23 15:43 Docusate Enema 283 Mg/5 Ml Enema DE 09/24/24 15:42 DAILY PRN Constipation Fish Oil 1,000 mg 09/25/23 21:00 10/03/23 09:11 Olympia-3/Fish Oil 1,000 Mg Capsule PO 09/24/24 20:59 [...] HTN, CAD s/p CABG who presents to [facility] for rehab following 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 He has continued impaired mobility and impaired independence with ADLsand IADLs requiring PT/OT/MEDICAL CODING AUDITOR 5-7 days/week 3 hours/day to maximize safety [...] equipment to enhance the patient's a functional jainism Encourage deep breathing exercises and incentive spirometry [...] greater than 25 minutes for services, including nvit-ua-nnli encounter with the patient, discussion of the case, plan of care, and exam; and dcusaci-pw-shkp activities, such as reviewing pertinent family consultant documentation, recent therapy notes, laboratory and radiology studies, and discussion of case with care team including physician, nursing, pillowcase folder, and therapists. More than 50 % of time was spent on patient/family counseling or coordination ofcare. Documented By: Hernan Minaya MD 10/03/23 1429 Signed By: <Electronically signed by Hernan Minaya MD> 10/03/23 143 [facility] Work Phone: 1(819) 581-932502-20-2024 Progress note Author Donovan La [facility] October 02, 2023 1:17pm Note Date/Time October 02, 2023 11:03am [facility] [address] [place] [address] Physiatry(Rehab) Progress Note Signed Patient: Janice Shultz MR#: [id number] : 1945 Acct:[id number] Age/Sex: 78 / M Adm Date: 4 Loc: Room: [address] [place] [address] Type: ADM IN Attending Dr: Donovan La MD Copies to: ~ Date of Service: 10/02/2023 Subjective Subjective Narrative: Mr. Shultz is a 78 year old male with PMH previous CVA in 2017, HTN, CAD and CABG who presents to [facility] rehab following acute hospitalization for left PICA stroke with hemorrhagic transformation. The patient initially presents to [facility] for evaluation for 5 days vertigo with N/V, blurred vision, and gait instability. He reportedly had a fall1 day prior to admission due to vertigo. Non contrast CTH was done and demonstrated evidence of hemorrhage in the PICA territory. Patient was transferred to [facility]. MRI was done andconfirmed PICA ischemic stroke [...] mg 09/25/23 15:43 Bisacodyl 10 Mg Supp.Rect DE 09/24/24 15:42 DAILY PRN Constipation Docusate Sodium 100 mg 09/25/23 15:43 09/30/23 09:07 Docusate 100 Mg Capsule PO 09/24/24 15:42 100 mg BID PRN Administration Constipation Docusate Sodium 283 mg 09/25/23 15:43 Docusate Enema 283 Mg/5 Ml Enema DE 09/24/24 15:42 DAILY PRN Constipation Fish Oil 1,000 mg 09/25/23 21:00 10/02/23 09:50 Olympia-3/Fish Oil 1,000 Mg Capsule PO 09/24/24 20:59 1,000 mg BID NAYELY Administration Heparin Sodium (Porcine) 5,000 unit 09/25/23 22:00 10/02/23 05:34 Heparin 5,000 Unit/Ml Vial SUBCUT 09/24/24 21:59 5,000 unit Q8HR NAEYLY Administration Lactulose 30 gm 09/25/23 15:43 09/30/23 [...] HTN, CAD s/p CABG who presents to [facility] for rehab following 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 He has continued impaired mobility and impaired independence with ADLsand IADLs requiring PT/OT/MEDICAL CODING AUDITOR 5-7 days/week 3 hours/day to maximize safety [...] equipment to enhance the patient's a functional jainism Encourage deep breathing exercises and incentive spirometry [...] greater than 15 minutes for services, including icji-hm-lwor encounter with the patient, discussion of the case, plan of care, and exam; and kjbymsd-qh-lifo activities, such as reviewing pertinent family consultant documentation, recent therapy notes, laboratory and radiology studies, and discussion of case with care team including physician, nursing, pillowcase folder, and therapists. More than 50 % of time was spent on patient/family counseling or coordination ofcare. <Statement entered by Donovan La MD - 10/02/23 13:17> I completed a substantive portion of this encounter, the medical decision makingportion of this note in its entirety, including Allied health note review, nursing note review, family consultant note review, discussion with nursing and case management, and more than 50% of my time was spent on counseling and coordination of care, time spent 27 minutes Patient was personally seen by me, Dr. La, on the day of encounter, reviewed the history and the relevant portions of the chart, including current orders, allied health and family consultant notes, labs/imaging and performed mims elements of exam and I formulated the plan of care and facilitated the medical decision making. Documented By: Tracy Fernandez APRN 10/02/23 1 056 Signed By: <Electronically signed by NAN Fernandez> 10/02/23 1102 <Electronically signed by Donovan La MD> 10/02/23 1317 [facility] Work Phone: 1(847) 700-912702-19-2024 Progress note Author Donovan La [facility] October 01, 2023 1:32pm Note Date/Time October 01, 2023 1:32pm [facility] [address] [place] [address] Physiatry(Rehab) Progress Note Signed Patient: Janice Shultz MR#: [id number] : 1945 Acct:[id number] Age/Sex: 78 / M Adm Date: 4 Loc: Room: [address] [place] [address] Type: ADM IN Attending Dr: Donovan La MD Copies to: ~ Date of Service: 10/01/2023 Subjective Subjective Narrative: Mr. Shultz is a 78 year old male with PMH previous CVA in 2017, HTN, CAD and CABG who presents to [facility] rehab following acute hospitalization for left PICA stroke with hemorrhagic transformation. The patient initially presents to [facility] for evaluation for 5 days vertigo with N/V, blurred vision, and gait instability. He reportedly had a fall1 day prior to admission due to vertigo. Non contrast CTH was done and demonstrated evidence of hemorrhage in the PICA territory. Patient was transferred to [facility]. MRI was done andconfirmed PICA ischemic stroke [...] mg 09/25/23 15:43 Bisacodyl 10 Mg Supp.Rect DE 09/24/24 15:42 DAILY PRN Constipation Docusate Sodium 100 mg 09/25/23 15:43 09/30/23 09:07 Docusate 100 Mg Capsule PO 09/24/24 15:42 100 mg BID PRN Administration Constipation Docusate Sodium 283 mg 09/25/23 15:43 Docusate Enema 283 Mg/5 Ml Enema DE 09/24/24 15:42 DAILY PRN Constipation Fish Oil 1,000 mg 09/25/23 21:00 10/01/23 09:11 Olympia-3/Fish Oil 1,000 Mg Capsule PO 09/24/24 20:59 [...] HTN, CAD s/p CABG who presents to [facility] for rehab following 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 He has continued impaired mobility and impaired independence with ADLsand IADLs requiring PT/OT/MEDICAL CODING AUDITOR 5-7 days/week 3 hours/day to maximize safety [...] equipment to enhance the patient's a functional jainism Encourage deep breathing exercises and incentive spirometry [...] greater than 15 minutes for services, including pgxj-tk-kbtt encounter with the patient, discussion of the case, plan of care, and exam; and begdppb-ig-eoqn activities, such as reviewing pertinent family consultant documentation, recent therapy notes, laboratory and radiology studies, and discussion of case with care team including physician, nursing, pillowcase folder, and therapists. More than 50 % of time was spent on patient/family counseling or coordination ofcare. Documented By: Donovan La MD [id number] Signed By: <Electronically signed by Donovan La MD> 10/01/23 1332 [facility] Work Phone: 1(332) 745-542302-19-2024 Progress note Author Donovan La [facility] October 01, 2023 9:30am Note Date/Time September 28, 2023 12:45pm [facility] [address] [place] [address] Physiatry(Rehab) Progress Note Signed Patient: Janice Shultz MR#: [id number] : 1945 Acct:[id number] Age/Sex: 78 / M Adm Date: 4 Loc: Room: [address] [place] [address] Type: ADM IN Attending Dr: Donovan La MD Copies to: ~ Date of Service: 09/28/2023 Subjective Subjective Narrative: Mr. Shultz is a 78 year old male with PMH previous CVA in 2017, HTN, CAD and CABG who presents to [facility] rehab following acute hospitalization for left PICA stroke with hemorrhagic transformation. The patient initially presents to [facility] for evaluation for 5 days vertigo with N/V, blurred vision, and gait instability. He reportedly had a fall1 day prior to admission due to vertigo. Non contrast CTH was done and demonstrated evidence of hemorrhage in the PICA territory. Patient was transferred to [facility]. MRI was done andconfirmed PICA ischemic stroke [...] mg 09/25/23 15:43 Bisacodyl 10 Mg Supp.Rect DE 09/24/24 15:42 DAILY PRN Constipation Docusate Sodium 100 mg 09/25/23 15:43 09/28/23 08:43 Docusate 100 Mg Capsule PO 09/24/24 15:42 100 mg BID PRN Administration Constipation Docusate Sodium 283 mg 09/25/23 15:43 Docusate Enema 283 Mg/5 Ml Enema DE 09/24/24 15:42 DAILY PRN Constipation Fish Oil 1,000 mg 09/25/23 21:00 09/28/23 08:43 Olympia-3/Fish Oil 1,000 Mg Capsule PO 09/24/24 20:59 [...] HTN, CAD s/p CABG who presents to [facility] for rehab following 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 He has continued impaired mobility and impaired independence with ADLsand IADLs requiring PT/OT/MEDICAL CODING AUDITOR 5-7 days/week 3 hours/day to maximize safety [...] equipment to enhance the patient's a functional jainism Encourage deep breathing exercises and incentive spirometry [...] greater than 15 minutes for services, including aoyf-qf-fuem encounter with the patient, discussion of the case, plan of care, and exam; and toralta-pw-ists activities, such as reviewing pertinent family consultant documentation, recent therapy notes, laboratory and radiology studies, and discussion of case with care team including physician, nursing, pillowcase folder, and therapists. More than 50 % of time was spent on patient/family counseling or coordination ofcare. <Statement entered by Donovan La MD - 10/01/23 09:30> This documentation has been reviewed and approved. Documented By: Tracy Fernandez APRN 09/28/23 1 241 Signed By: <Electronically signed by NAN Fernandez> 09/28/23 1250 <Electronically signed by Donovan La MD> 10/01/23 0930 [facility] Work Phone: 1(550) 243-942102-19-2024 Progress note Author Donovan La [facility] October 01, 2023 9:30am Note Date/Time September 29, 2023 11:26am [facility] [address] [place] [address] Physiatry(Rehab) Progress Note Signed Patient: Janice Shultz MR#: [id number] : 1945 Acct:[id number] Age/Sex: 78 / M Adm Date: 4 Loc: Room: [address] [place] [address] Type: ADM IN Attending Dr: Donovan La MD Copies to: ~ Date of Service: 09/29/2023 Subjective Subjective Narrative: Mr. Shultz is a 78 year old male with PMH previous CVA in 2017, HTN, CAD and CABG who presents to [facility] rehab following acute hospitalization for left PICA stroke with hemorrhagic transformation. The patient initially presents to [facility] for evaluation for 5 days vertigo with N/V, blurred vision, and gait instability. He reportedly had a fall1 day prior to admission due to vertigo. Non contrast CTH was done and demonstrated evidence of hemorrhage in the PICA territory. Patient was transferred to [facility]. MRI was done andconfirmed PICA ischemic stroke [...] like to transition patient's neurological care to [place]. Will contact KAREN Rodriguez to see if [...] mg 09/25/23 15:43 Bisacodyl 10 Mg Supp.Rect DE 09/24/24 15:42 DAILY PRN Constipation Docusate Sodium 100 mg 09/25/23 15:43 09/28/23 08:43 Docusate 100 Mg Capsule PO 09/24/24 15:42 100 mg BID PRN Administration Constipation Docusate Sodium 283 mg 09/25/23 15:43 Docusate Enema 283 Mg/5 Ml Enema DE 09/24/24 15:42 DAILY PRN Constipation Fish Oil 1,000 mg 09/25/23 21:00 09/29/23 08:46 Olympia-3/Fish Oil 1,000 Mg Capsule PO 09/24/24 20:59 [...] HTN, CAD s/p CABG who presents to [facility] for rehab following 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 He has continued impaired mobility and impaired independence with ADLsand IADLs requiring PT/OT/MEDICAL CODING AUDITOR 5-7 days/week 3 hours/day to maximize safety [...] equipment to enhance the patient's a functional jainism Encourage deep breathing exercises and incentive spirometry [...] greater than 15 minutes for services, including optl-wk-ltqt encounter with the patient, discussion of the case, plan of care, and exam; and poblezg-rj-kzik activities, such as reviewing pertinent family consultant documentation, recent therapy notes, laboratory and radiology studies, and discussion of case with care team including physician, nursing, pillowcase folder, and therapists. More than 50 % of time was spent on patient/family counseling or coordination ofcare. <Statement entered by Donovan La MD - 10/01/23 09:29> This documentation has been reviewed and approved. Documented By: Tracy Fernandez APRN 09/29/23 1 119 Signed By: <Electronically signed by NAN Fernandez> 09/29/23 1126 <Electronically signed by Donovan La MD> 10/01/23 0930 [facility] Work Phone: 1(428) 191-286602-15-2024 Consult note Author Adriana Ling [facility] September 27, 2023 8:06pm Note Date/Time September 27, 2023 5:55pm [facility] [address] [place] [address] Hospitalist Consult Note Signed Patient: Janice Shultz MR#: [id number] : 1945 Acct:[id number] Age/Sex: 78 / M Adm Date: 4 Loc: Room: [address] [place] [address] Type: ADM IN Attending Dr: Donovan La MD Copies to: MD Sherif Mercado MD Lynn A Stackhouse-Roby, NAN Ling MD~ HPI DATE OF CONSULTATION: 09/26/23 REQUESTING PROVIDER: Donovan La Consult Narrative Reason for Consult: Diabetes HPI: 78-year-old male past medical history significant for CAD history [place] and stents,hypertension, hyperlipidemia, diabetes, CVA, BPH. Patient initially presented to [facility] with visual disturbance, vertigo nausea and vomiting, gait instability with fall 1 day prior to presentation. Workup demonstrated evidenceof hemorrhage and peaked territory on noncontrast CT. Patient was urgently transferred to [facility] for further management. MRI of the brain there confirmed [place] ischemic stroke with hemorrhagic conversion. The patient was seen by neurosurgical services while there with no interventions recommended. CTA did show evidence of occluded left V1 and moderate stenosis of right M1. Hewas seen by therapy services and ultimately transferred to the inpatient rehab unit here at [facility] September 26. Hospitalist team is now consulted [...] negative unless noted below or in HPI [facility] Medical History (Updated 09/27/23 @ 18:01 [...] mg 09/25/23 15:43 Bisacodyl 10 Mg Supp.Rect DE 09/24/24 15:42 DAILY PRN Constipation Docusate Sodium 100 mg 09/25/23 15:43 Docusate 100 Mg Capsule PO 09/24/24 15:42 BID PRN Constipation Docusate Sodium 283 mg 09/25/23 15:43 Docusate Enema 283 Mg/5 Ml Enema DE 09/24/24 15:42 DAILY PRN Constipation Fish Oil 1,000 mg 09/25/23 21:00 09/26/23 08:42 Olympia-3/Fish Oil 1,000 Mg Capsule PO 09/24/24 20:59 [...] Tablet PO 09/24/24 20:59 Not Given BID [facility] Scopolamine 1 each 09/28/23 09:00 Scopolamine 1 Mg/3 Days Patch TRANSDERML 09/27/24 08:59 Q72HR [facility] Sennosides 2 tab 09/26/23 12:00 Sennosides 8.6 Mg Tablet PO 09/25/24 11:59 DAILY@12 PRN If no BM in 2 days Sodium Chloride 0 ml 09/25/23 15:43 Sodium Chloride 0.9 % 10 Ml Syringe IV-PUSH 09/24/24 15:42 PRN PRN Flush Tamsulosin HCl 0.4 mg 09/25/23 22:00 09/25/23 21:13 Tamsulosin 0.4 Mg Cap.Er.24h PO 09/24/24 21:59 0.4 mg QHS [facility] Administration Exam Physical Exam Vital Signs: [...] % (Auto) 68.0, Lymph % (Auto) 19.4, Marshall % (Auto) 9.4, Eos % (Auto) 2.1, Baso % (Auto) 1.1, Nucleat RBC Rel Count 0.0, Neut # (Auto) 6.2, Lymph # (Auto) 1.8, Marshall # (Auto) 0.9 H, Eos # (Auto) [...] conditions 1. Diabetes?metformin 2. Hypertension, CAD hx [place]/ stents, HLD?metoprolol. BPs reviewed and controlled. Fish oil, ASA 3. BPH?tamsulosin, monitor for retention Documented By: Jessie Andrea APRN 09/13 12/04 1800 Signed By: <Electronically signed by NAN Andrea> 09/27/231804 <Electronically signed by Adriana Ling MD> 09/27/232005 [facility] Work Phone: 1(753) 889-161902-15-2024 Progress note Author Donovan La [facility] September 27, 2023 12:57pm Note Date/Time September 27, 2023 10:58am [facility] [address] [place] [address] Physiatry(Rehab) Progress Note Signed Patient: Janice Shultz MR#: [id number] : 1945 Acct:[id number] Age/Sex: 78 / M Adm Date: 4 Loc: Room: 8X3783-4 Type: ADM IN Attending Dr: Donovan La MD Copies to: ~ <Toni Orozco MD, RES - Last Filed: 09/27/23 10:58> Date of Service: 09/27/2023 Subjective <Toni Orozco MD, RES - Last Filed: 09/27/23 10:58> Subjective Narrative: Mr. Shultz is a 78 year old male with PMH previous CVA in 2017, HTN, CAD and CABG who presents to [facility] rehab following acute hospitalization for left PICA stroke with hemorrhagic transformation. The patient initially presents to [facility] for evaluation for 5 days vertigo with N/V, blurred vision, and gait instability. He reportedly had a fall1 day prior to admission due to vertigo. Non contrast CTH was done and demonstrated evidence of hemorrhage in the PICA territory. Patient was transferred to [facility]. MRI was done andconfirmed PICA ischemic stroke [...] No other complaints at this time. Exam <Toin Orozco MD, RES - Last Filed: 09/27/23 [...] mg 09/25/23 15:43 Bisacodyl 10 Mg Supp.Rect DE 09/24/24 15:42 DAILY PRN Constipation Docusate Sodium 100 mg 09/25/23 15:43 Docusate 100 Mg Capsule PO 09/24/24 15:42 BID PRN Constipation Docusate Sodium 283 mg 09/25/23 15:43 Docusate Enema 283 Mg/5 Ml Enema DE 09/24/24 15:42 DAILY PRN Constipation Fish Oil 1,000 mg 09/25/23 21:00 09/27/23 08:10 Olympia-3/Fish Oil 1,000 Mg Capsule PO 09/24/24 20:59 [...] 21:59 0.4 mg QHS NAYELY Administration Assessment/Plan <oTni Orozco MD, RES - Last Filed: 09/27/23 10:58> Assessment/Plan (1) Impaired mobility and activities of daily living: (2) Vertigo: (3) CVA (cerebral vascular accident): (4) History of cardiac catheterization: (5) Hypertension: (6) Hyperlipidemia: Plan This is a 78-year-old male with past medical history of CVA in 2017, HTN, CAD s/p CABG who presents to [facility] for rehab following 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 He has continued impaired mobility and impaired independence with ADLsand IADLs requiring PT/OT/MEDICAL CODING AUDITOR 5-7 days/week 3 hours/day to maximize safety [...] equipment to enhance the patient's a functional jainism Encourage deep breathing exercises and incentive spirometry [...] Allied health note review, nursing note review, family consultant note review, discussion with nursing and case management, and more than 50% of my time was spent on counseling and coordination of care, time spent 70 minutes Patient was personally seen by me, Dr. La, on the day of encounter, reviewed the history and the relevant portions of the chart, including current orders, allied health and family consultant notes, labs/imaging and performed mims elements [...] HTN, CAD s/p CABG who presents to [facility] for rehab following 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 He has continued impaired mobility and impaired independence with ADLsand IADLs requiring PT/OT/MEDICAL CODING AUDITOR 5-7 days/week 3 hours/day to maximize safety [...] equipment to enhance the patient's a functional jainism Encourage deep breathing exercises and incentive spirometry [...] Allied health note review, nursing note review, family consultant note review, discussion with nursing and case management, and more than 50% of my time was spent on counseling and coordination of care, time spent 30 minutes Patient was personally seen by me, Dr. La, on the day of encounter, reviewed the history and the relevant portions of the chart, including current orders, allied health and family consultant notes, labs/imaging and performed mims elements [...] <Electronically signed by Donovan La MD> 09/27/[address] [place] [address] Work Phone: 1([phone]) 373-340302-14-2024 History of Present illness Narrative* Anel Llamas RN - 09/26/2023 3:19 PM EST error documented in this encounterK[facility] MemorialOpenSearchServer [facility] [id number] History and physical note Author Donovan La [facility] September 26, 2023 12:12pm Note Date/Time September 26, 2023 10:24am [facility] [address] [place] [address] Physiatry (Rehab) H&P Signed Patient: Janice Shultz MR#: [id number] : 1945 Acct:[id number] Age/Sex: 78 / M Adm Date: 4 Loc: 5T Room: [id number] Type: ADM IN Attending Dr: Donovan La MD Copies to: MD Sherif Mercado MD~ Date of Service: 09/26/2023 HPI The patient was seen and examined on: 09/26/23 History of Present Illness: Mr. Shultz is a 78 year old male with PMH previous CVA in 2017, HTN, CAD and CABG who presents to [facility] rehab following acute hospitalization for left PICA stroke with hemorrhagic transformation. The patient initially presents to [facility] for evaluation for 5 days vertigo with N/V, blurred vision, and gait instability. He reportedly had a fall1 day prior to admission due to vertigo. Non contrast CTH was done and demonstrated evidence of hemorrhage in the PICA territory. Patient was transferred to [facility]. MRI was done andconfirmed PICA ischemic stroke [...] or speech abnormalities. Tolerating therapy thus far. [facility] Medical History (Updated 09/26/23 @ 12:06 [...] 81 Mg Tablet.Dr) 81 mg PO DAILY [facility] Stop: 09/25/24 08:59 Last Admin: 09/26/23 08:42 Dose: 81 mg Atorvastatin Calcium (Atorvastatin 80 Mg Tablet) 80 mg PO HS [facility] Stop: 09/24/24 21:59 Last Admin: 09/25/23 21:13 Dose: 80 mg Bisacodyl (Bisacodyl 10 Mg Supp.Rect) 10 mg DE DAILY PRN PRN Reason: Constipation Stop: 09/24/24 15:42 Docusate Sodium (Docusate 100 Mg Capsule) 100 mg PO BID PRN PRN Reason: Constipation Stop: 09/24/24 15:42 Docusate Sodium (Docusate Enema 283 Mg/5 Ml Enema) 283 mg DE DAILY PRN PRN Reason: Constipation Stop: 09/24/24 15:42 Fish Oil (Olympia-3/Fish Oil 1,000 Mg Capsule) 1,000 mg PO BID [facility] Stop: 09/24/24 20:59 Last Admin: 09/26/23 08:42 Dose: 1,000 mg Heparin Sodium (Porcine) (Heparin 5,000 Unit/Ml Vial) 5,000 unit SUBCUT Q8HR [facility] Stop: 09/24/24 21:59 Last Admin: 09/26/23 05:44 Dose: 5,000 unit Lactulose (Lactulose 20 Gm/30 Ml Udc) 30 gm PO DAILY PRN PRN Reason: Constipation Stop: 09/24/24 15:42 Melatonin (Melatonin 5 Mg Tablet) 5 mg PO [facility] Stop: 09/24/24 21:59 Last Admin: 09/25/23 21:13 Dose: 5 mg Metformin HCl (Metformin 500 Mg Tablet) 500 mg PO DAILY.WITH.SUPPER [facility] Stop: 09/25/24 16:59 Metoprolol Tartrate (Metoprolol Tartrate 25 Mg Tablet) 25 mg PO BID [facility] Stop: 09/24/24 20:59 Last Admin: 09/26/23 08:42 Dose: Not Given Scopolamine (Scopolamine 1 Mg/3 Days Patch) 1 each TRANSDERML Q72HR [facility] Stop: 09/27/24 08:59 Sennosides (Sennosides 8.6 [...] % (Auto) 68.0 Lymph % (Auto) 19.4 Marshall % (Auto) 9.4 Eos % (Auto) 2.1 Baso % (Auto) 1.1 Nucleat RBC Rel Count 0.0 Neut # (Auto) 6.2 Lymph # (Auto) 1.8 Marshall # (Auto) 0.9 H Eos # (Auto) [...] 24 hour daily monitoring and intervention from Air Battle Manager as well as other consulting physicians including internal medicine as well as 24 hour daily top inventory control executive nursing - for medical safe / optimal [...] HTN, CAD s/p CABG who presents to [facility] for rehab following 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 He has continued impaired mobility and impaired independence with ADLsand IADLs requiring PT/OT/MEDICAL CODING AUDITOR 5-7 days/week 3 hours/day to maximize safety [...] equipment to enhance the patient's a functional jainism Encourage deep breathing exercises and incentive spirometry [...] Allied health note review, nursing note review, family consultant note review, discussion with nursing and case management, and more than 50% of my time was spent on counseling and coordination of care, time spent 70 minutes Patient was personally seen by me, Dr. La, on the day of encounter, reviewed the history and the relevant portions of the chart, including current orders, allied health and family consultant notes, labs/imaging and performed mims elements of exam and I formulated the plan of care and facilitated the medical decision making. Documented By: Donovan La MD [id number] Signed By: <Electronically signed by Donovan La MD> 09/26/23 1212 [facility] Work Phone: 1(964) 367-532305-02-2023 Evaluation note* Encounter Date Diagnosis Assessment Notes [...] the meantime with any issues or concerns. [facility] Other 09-12-2022 NotePROCEDURE: XR HIP LT 2 [...] Electronically authenticated by: KASH AZAR Date: 2022-04-24 18:45[facility]04-26-2022 Evaluation note* Encounter Date Diagnosis Assessment Notes [...] in the meantime with any issues present. [facility] Other Evaluation note* Diagnosis Cerebrovascular accident (CVA) due to embolism of precerebral artery (CMS-HCC)- Primary Other cerebrovascular vasospasm and vasoconstriction [facility] Diagnosis Onset Date Resolution Status CAD (coronary artery disease) acute CVA (cerebral vascular accident) acute Hyperlipidemia acute Hypertension acute Impaired mobility and activities of daily living acute Vertigo acute History of cardiac catheterization resolved [facility] Work Phone: History general Narrative - Reported* Type Description Date Medical History CAD Medical History CVA x2 Medical History HTN Medical History h/o [place] Surgical History hernia repair Surgical History back Surgical History right wrist surgery Surgical History RIGHT CEA WITH PATCH 05/10/20 Hospitalization History stroke Hospitalization History heart matti. Hospitalization History back matti. [facility] Other InstructionsNot on filedocumented in this encounter [facility] Ready SystemInstructionsNot on filedocumented in this encounter [facility] Ready SystemInstructionsNot on filedocumented in this encounter [facility] Summary Purpose Family History No Family [...] Procedures Event Monitor (In Office) Prasanna Thornton, NAN-LOAN OFFICER [address] [facility] [address] [place] [address] Referral ID Status Reason Start Date Expiration Date V isits Requested Visits Authorized [id number] Pending Review 09/26/2023 09/25/2024 1 1 Chief [...] section and content) DATE CREATED AUTHOR 01/23/2018 [facility] DATE CREATED AUTHOR AUTHOR'S ORGANIZ ATION 06/06/2018 [facility] DATE CREATED AUTHOR AUTHOR'S ORGANIZ ATION 05/20/2021 [facility] DATE CREATED AUTHOR AUTHOR'S ORGANIZ ATION 05/09/2022 [facility] DATE CREATED AUTHOR AUTHOR'S ORGANIZ ATION 05/06/2023 [facility] DATE CREATED AUTHOR AUTHOR'S ORGANIZ ATION 05/06/2023 [facility] DATE CREATED AUTHOR AUTHOR'S ORGANIZ ATION 09/26/2023 [facility] DATE CREATED AUTHOR AUTHOR'S ORGANIZ ATION 09/28/2023 [facility] DATE CREATED AUTHOR AUTHOR'S ORGANIZ ATION 10/14/2023 [facility] REASON FOR VISIT (unrecogniz ed section and content) Reason Onset Date Comments Transition Of Care 10/05/2023 Care Teams (unrecognized sec tion and content) Sponge Maker Relationship Specialty Start Date End Date Sherif Paredes MD [address] [place] [address] PCP - General Family Medicine [...] St art: September 26, 2023 Rebekah Rodríguez PROGRAM AND RESEARCH COORDINATOR Other Provider Active Star t: September 26, [...] rt: September 26, 2023 Carmen Lipscomb , PROGRAM AND RESEARCH COORDINATOR Other Provider Active Start : September 26, 2023 Fouzia Leavitt , PROGRAM AND RESEARCH COORDINATOR Other Provider Active St art: September 26, [...] Provider Active Start: September 26, 2023 Lindsey Mcgehe MD Other Provider Active Start: 2023 Bahman [...] Other Provider Active Start: Sep Kell Dyer SPOUT WORKER-C Other Provider Active St art: October 03, [...] Provider Active Start: Sep Kell Dyer , SPOUT WORKER-C Other Provider Active St art: October 03, [...] Provider Active Star t: October 03, 2023 Sponge Maker Relationship Specialty Start Date End Date Sherif Paredes MD [address] [place] [address] PCP - [facility] 07/09/17 Sponge Maker Relationship Specialty Start Date End Date Sherif Paredes MD [address] [place] [address] PCP - [facility] 07/09/17 FOR RECORDS PERTAINING TO PATIENTS WHO [...] BE BASED ON THE PRIMARY CLINICAL RECORDS. [employer] [facility]. provides no warranty or guarantee of the accuracy or completeness of information in this document.
[2023-10-18 00:08] VITALS: PULSE 78
[2023-10-18 02:52] VITALS: PULSE 77
[2023-10-18] MEDS: 0.9 % SODIUM CHLORIDE 1,000 ML 125 ML IV (04:12)
[2023-10-18 04:18] VITALS: PULSE 83
[2023-10-18 04:34] VITALS: BP 169/89; PULSE 81; RESP 18; TEMP 36.6; O2SAT 91
[2023-10-18 05:07] LABS: Basophils Absolute Auto 0.1 10^3/uL (0.0-0.1); Basophils Percent Auto 0.6 % (0.2-2.0); Eosinophils Absolute Auto 0.2 10^3/uL (0.0-0.7); Eosinophils Percent Auto 2.3 % (0.9-7.0); Hematocrit 45.5 % (42.0-54.0); Hemoglobin 13.7 g/dL (14.0-18.0); Immature Granulocytes Abs Auto 0.02 10^3/uL (0.00-0.03); Immature Granulocytes Pct Auto 0.2 % (0.0-0.5); Lymphocytes Absolute Auto 1.7 10^3/uL (1.2-3.8); Lymphocytes Percent Auto 20.8 % (20.5-60.0); Mean Corpuscular HGB Conc 30.1 g/dL (29.9-35.2); Mean Corpuscular Hemoglobin 27.7 pg (25.9-34.0); Mean Corpuscular Volume 92.1 fL (80.0-94.0); Monocytes Absolute Auto 0.7 10^3/uL (0.3-0.8); Monocytes Percent Auto 9.1 % (1.7-12.0); Neutrophils Absolute Auto 5.4 10^3/uL (1.4-6.5); Platelet Count 206 10^3/uL (150-450); Red Blood Count 4.94 10^6/uL (4.70-6.10); Red Cell Distribution Width 13.1 % (11.0-15.0); White Blood Count 8.1 10^3/uL (4.0-11.0)
[2023-10-18 05:34] LABS: Alanine Aminotransferase <6 U/L (16-63); Albumin Globulin Ratio 0.7; Albumin Level 2.8 g/dL (3.4-5.0); Alkaline Phosphatase 44 U/L (46-116); Anion Gap 9.3; Aspartate Amino Transferase 25 U/L (15-37); Bilirubin Total 0.8 mg/dL (0.2-1.0); Calcium 8.6 mg/dL (8.5-10.1); Carbon Dioxide 20.6 mmol/L (21.0-32.0); Chloride 106 mmol/L (98-107); Estimated GFR (African America >60 (>=60); Estimated GFR (Non-African Ame >60 (>=60); Globulin 4.2 g/dL; Glucose 112 mg/dL (74-106); Potassium 3.9 mmol/L (3.5-5.1); Sodium 132 mmol/L (136-145)
[2023-10-18 06:07] VITALS: PULSE 84
[2023-10-18 08:00] VITALS: BP 134/89; BP 148/91; BP 155/89; PULSE 101; PULSE 113; RESP 18; TEMP 36.7; O2SAT 95
[2023-10-18] MEDS: ATORVASTATIN CALCIUM 20 MG TABLET PO (09:32)
[2023-10-18] MEDS: ASPIRIN 325 MG TABLET PO (09:32)
[2023-10-18] MEDS: TAMSULOSIN HCL 0.4 MG CAPSULE 0.400000000000000022 MG PO (09:32)
[2023-10-18] MEDS: METOPROLOL TARTRATE 25 MG TABLET 12.5 MG PO (09:32)
--- NOTE | 2023-10-18 09:33 | P.HP_ITS ---
<Statement entered by Ross Leiva MD - 10/18/23 12:40> This documentation has been reviewed and approved. Patient seen and evaluated at the bedside earlier today. Patient did state he was back to his normal self. Agree with input and findings provided by nurse practitioner's notations. Only additional diagnosis would be hyponatremia. This is likely fluid related. Could follow-up as an outpatient with his PCP for that. HPI H&P: HPI History of Present Illness Chief complaint: Dizziness Orthostatic hypotension near syncope Narrative: 10/18/23 0825 This is a 78-year-old male patient with a past medical history as outlined below including recent hemorrhagic CVA last month and remote history of ischemic CVA, HTN, hyperlipidemia, and BPH; who presented to the ED twice yesterday complaining of orthostatic dizziness. 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 The patient was eager to impress his machine coil assembler and decided to not eat 24 hours prior to this lab work to improve his lipid results. He also decided to take double BP medication yesterday morning prior to arrival for his lab work. He began to experience dizziness especially with standing. He was initially evaluated in the ED and discharged home, but returned to the ED for further evaluation when he was so lightheaded he had to lower himself to the ground. Workup in the ED was unremarkable with normal labs, unremarkable EKG and chest x-ray, and CT of the head without acute intracranial abnormality noted. CT of the head did note resolution of his previous left cerebellar hemorrhage and chronic changes from his prior right MCA distribution ischemic CVA. He was admitted in observation last night by the hospitalist service for IVFs and orthostatic VS. At the time of my exam the patient is resting comfortably in bed. He reports that his dizziness is completely resolved and he did not note recurrence when he stood up to go to the bathroom earlier this morning. 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 We discussed how this is inadvisable in the future and he verbalizes understanding. As the patient's symptoms have completely resolved, he is being discharged home in stable condition. He should follow-up with his PCP in 5-7 days. Opioid HPI Opioid Management Most Recent Opioid Data: Last Pain Assessment 10/18/23 10:00 Last ORT Total Score 0 10/17/23 22:43 Last ORT Risk Category Low Risk 10/17/23 22:43 Review of Systems ROS Status of ROS 10 or more systems reviewed and unremark able except as noted in history and below PFSH PFS Medical History (Updated 10/18/23 @ 12:10 by Wendy Robertson NP) BPH (benign prostatic hyperplasia) ?N40.0 - Benign prostatic hyperplasia without lower urinary tract symptoms (ICD-10) Acute cerebellar hemorrhage ?I61.4 - Nontraumatic intracerebral hemorrhage in cerebellum (ICD-10) Hernia, inguinal, right ?K40.90 - Unilateral inguinal hernia, without obstruction or gangrene, not specified as recurrent (ICD-10) Carotid arterial disease ?I77.9 - Disorder of arteries and arterioles, unspecified (ICD-10) HTN (hypertension) ?I10 - Essential (primary) hypertension (ICD-10) Surgical History (Updated 10/17/23 @ 22:57 by Peyton Ruano) History of back surgery ?Z98.890 - Other specified postprocedural states (ICD-10) H/O heart artery stent ?Z95.5 - Presence of coronary angioplasty implant and graft (ICD-10) Family History (Updated 10/17/23 @ 22:58 by Peyton Ruano) Mother Family history of hypertension Family history of stroke Aunt Family history of myocardial infarction Uncle Family history of myocardial infarction Social History (Updated 10/17/23 @ 23:00 by Peyton Ruano) Smoking status: Never smoker Second hand tobacco smoke exposure: No Non-prescribed substance use: denies use 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 Known occupational exposures/hazards: No Highest level of school completed/degree received: Master's degree Do you want help with school or training: No Are you now , , , , never or living with a partner: In a typical week, how many times do you talk on the telephone with family, friends, or neighbors: 3 or more times per week How often do you get together with friends or relatives: 3 or more times per week How often do you attend evangelical or catholic services: 1-3 times per year Do you belong to any clubs or organizations such as evangelical groups unions, fraternal or athletic groups, or school groups: no Total score: 2 Score interpretation: A score of greater than or equal to 2 indicates the lowest level of social isolation. Little interest or pleasure in doing things: not at all Feeling down, depressed, or hopeless: not at all Feel stressed/tense/nervous/anxious/difficulty sleeping: not at all Due to disability, difficulty making decisions: No Do you think of yourself as: straight/heterosexual Gender Identity: male Meds Home Medications and Allergies Home Medications Medication Instructions Recorded Confirmed Type aspirin 325 mg tablet 325 mg PO DAILY 09/19/23 10/17/23 History metoprolol tartrate 25 mg tablet 12.5 mg PO BID 09/19/23 10/17/23 History nitroglycerin 0.4 mg sublingual 0.4 mg sublingual Q5M PRN chest 09/19/23 10/17/23 History tablet pain simvastatin 40 mg tablet 40 mg PO DAILY 09/19/23 10/17/23 History meclizine 25 mg tablet 25 mg PO .q6 PRN dizziness 10/17/23 10/17/23 History tamsulosin 0.4 mg capsule 0.4 mg PO Q24H 10/17/23 10/17/23 History Allergies Allergy/AdvReac Type Severity Reaction Status Date / Time No Known Drug Allergies Allergy Verified 09/19/23 16:45 Exam Constitutional Vital Signs, click to edit/add: Last Vital Signs Temp 97.8 F 10/18/23 04:34 Pulse 113 H 10/18/23 08:00 Resp 18 10/18/23 04:34 BP 169/89 H 10/18/23 04:34 Pulse Ox 91 L 10/18/23 04:34 O2 Del Method Room Air 10/18/23 04:34 Common normals: no apparent distress, oriented x3, alert and well nourished General appearance: cooperative Orientation/consciousness: Yes awake HENRI Common normals: normocephalic, head/scalp atraumatic, hearing grossly normal bilaterally, external nose normal and moist oral mucous membranes Eye Common normals: PERRL, EOMs intact bilaterally, conjunctivae normal and no scleral icterus Alignment: alignment normal Eyelid: eyelids normal Chest Common normals: inspection of chest normal Chest: symmetrical chest wall rise Respiratory Common normals: normal respiratory effort, no retractions, no use of accessory muscles and clear to auscultation bilaterally Effort & inspection: able to speak in complete sentences Cardio Common normals: no JVD, regular rate, regular rhythm, S1 normal heart sound, S2 normal heart sound, no gallops, no clicks, no murmurs, no rub and peripheral pulses 2+ throughout GI Common normals: Normal to inspection, nondistended, normoactive bowel sounds present, soft to palpation, non-tender, no hepatosplenomegaly, no masses and no bruits Bladder/kidney exam: bladder normal to palpation Extremity Common normals: normal capillary refill and no pedal edema General: normal exam except as noted; no clubbing and no cyanosis Neuro [place] Coma Scale: GCS not evaluated Common normals: CN's II-XII intact bilaterally, moves all extremities, no focal motor deficits and no sensory deficits noted Speech: speech normal Motor exam: strength abnormal (Mild (4+/5) residual LUE, LLE weakness from prior CVA. L foot drop) Psych Common normals: mental status grossly normal, thought process normal, affect normal and activity/motor behavior normal Results Labs Labs: Short CBC 10/17/23 10/18/23 Range/Units 18:50 04:24 WBC 8.3 8.1 (4.0-11.0) 10^3/uL Hgb 15.6 13.7 L (14.0-18.0) g/dL Hct 48.9 45.5 (42.0-54.0) % Plt Count 230 206 (150-450) 10^3/uL BMP 10/17/23 10/18/23 18:50 04:24 Sodium 136 132 L Potassium 4.1 3.9 Chloride 102 106 Carbon Dioxide 30.2 20.6 L BUN 18.0 13.0 Creatinine 1.14 0.81 Glucose 112 H 112 H Calcium 9.3 8.6 Liver Function 10/17/23 10/18/23 Range/Units 18:50 04:24 Total Bilirubin 0.6 0.8 (0.2-1.0) mg/dL AST 19 25 (15-37) U/L ALT 26 <6 L (16-63) U/L Alkaline Phosphatase 56 44 L (46-116) U/L Albumin 3.8 2.8 L (3.4-5.0) g/dL Urine 10/17/23 Range/Units 21:15 Urine Color Yellow (YELLOW) Urine Clarity Clear (CLEAR) Urine pH 8.0 (5.0-9.0) Ur Specific [place] 1.020 (1.005-1.025) Urine Protein Negative (NEG/TRACE) mg/dL Urine Glucose (UA) Negative (NEGATIVE) mg/dL Pulse Oximetry Attestation: I have reviewed the pertinent pulse oximetry results. Assessment and Plan Assessment and Plan (1) Near syncope: Assessment and Plan: Acute * Adm observation * With associated dizziness and orthostatic hypotension * 2/2 doubling of usual HTN medications yesterday morning and poor PO intake x 24 hrs * IVF bolus and maintenance fluid given overnight * OVS this morning show mild drop with standing, but standing pressure remains at a stable level and the pt is no longer symptomatic * Mag and TSH added today are also WNL * D/C home today - FU w/ PCP (2) HTN (hypertension): Assessment and Plan: Chronic * Continue home metoprolol at usual BID dosing * Pt advised to take medication only as prescribed (3) Carotid arterial disease: Assessment and Plan: Chronic * Continue home daily ASA and statin (4) BPH (benign prostatic hyperplasia): Assessment and Plan: Chronic * Continue home tamsulosin
--- NOTE | 2023-10-18 09:35 | CM.NOTE ---
Rounds made with Dr. Leiva. Labs reviewed with Mr. Middleton by Dr. Leiva. Understanding verbalized. Likely discharge later this afternoon.
--- NOTE | 2023-10-18 09:39 | CM.NOTE ---
Medicare Outpatient observation Notice (SU) reviewed and signed by Mr. Middleton. No questions offered. Copy to chart original to Ms. Middleton.
[2023-10-18 10:45] LABS: Magnesium 1.9 mg/dL (1.8-2.4); TSH W/ REFLEX FT4 1.325 uIU/mL (0.358-3.740)
--- NOTE | 2023-10-18 12:03 | SWNOTE1 ---
SW spoke to nursing and physical therapy recommended outpt therapy. Nurse practitioner filled out form for outpt and referral was sent by nursing.
--- NOTE | 2023-10-19 15:01 | CM.DCFOLLOWU ---
10/18-1st attempt. No answer
--- NOTE | 2023-10-22 13:52 | CM.DCFOLLOWU ---
10/21- 2nd attempt. No answer
--- NOTE | 2023-10-23 14:44 | CM.DCFOLLOWU ---
Person spoke with: How are you feeling? He is doing much better How is your pain? No pain Did you understand your discharge instructions? Yes Do you have any questions about your discharge instructions? No Were you given any prescriptions at discharge? No Were you able to get your prescriptions filled? N/A Do you understand how to take your medications as ordered? Yes Do you have any questions about your follow up appointment and do you plan to keep your follow up appointment? No followed up 10/21 with family doctor Is there anything else that you would like to discuss? No Questions/Comments/Concerns/Other:
== END 2023-10-18 10:45 | disposition home or self-care (01) ==
LOC: ER 21:21 → MS 22:20
PROVIDERS: Emergency Medicine; Registered Nurse; Admitting Provider Family Medicine; Emergency Provider Internal Medicine; PCP Family Medicine; Visit Provider Nurse Practitioner
DX: I95.1 Orthostatic hypotension (principal); E87.1 Hypo-osmolality and hyponatremia; I10 Essential (primary) hypertension; I77.9 Disorder of arteries and arterioles, unspecified; N40.0 Benign prostatic hyperplasia without lower urinary tract symptoms; R42 Dizziness and giddiness; E78.5 Hyperlipidemia, unspecified; Z91.148 Patient's other noncompliance with medication regimen for other reason; Z95.5 Presence of coronary angioplasty implant and graft; Z86.73 Personal history of transient ischemic attack (TIA), and cerebral infarction without residual deficits; Z98.890 Other specified postprocedural states; Z79.82 Long term (current) use of aspirin; Z79.899 Other long term (current) drug therapy
CPT/HCPCS: 36415; 70450; 71046; 80053; 81003; 83735; 83880; 84443; 84484; 85025; 93005; 96361; 96374; 97162; 97165; 97535; 99281; 99285; G0378

== ENCOUNTER 2023-10-25 08:54 | Outpatient (OUT) | payer MEDICARE, SELFPAY ==
--- OUTSIDE RECORDS SUMMARY | 2023-10-25 09:00 | XMS_ITS | CCD ---
Author Name Unknown Address [address] [place] [address] Organization [facility] Care Team Providers Care Crtt Name Role Phone SYSTEM, PROVIDER NOT IN Unavailable Unavaila ble SHERIF NAM Unavailable Unavailable KAY JEAN Unavailable Unavailable MARIA TERESA, JAILENE Unavailable Unavailable UDREA, PETRE Unavailable Unavailable SYSTEM, PROVIDER NOT IN Unavailable Unavaila ble JAMESON SHERIDAN Unavailable Unavailable SHANTI, DEVYN Unavailable Unavailable MARIA TERESA, JAILENE Unavailable Unavailable SYSTEM, PROVIDER NOT IN Unavailable Unavaila ble SIDDHARTH DOLAN Unavailable Unavailable UNKNOWN, PROVIDER Unavailable Unavailable SHERIF PAREDES Unavailable Unavailable Sherif Paredes Unavailable Unavailable Unavailable Trinh Bailey Unavailable Unavailable Unavailable PAY, DR NORMAN Admitting Unavailable West, DR Gorman Consulting Unavailable DEFRANCE, DR GORMAN Primary Care Unavailable PAY, DR NORMAN Attending Unavailable PAY, DR NORMAN Consulting Unavailable NIEVES, DR KNIGHT Admitting Unavailable DEFRANCE, DR GORMAN Primary Care Unavailable HAY, DR KNIGHT Attending Unavailable HAY, DR KNIGHT Consulting Unavailable TROTTLv GIROLADENVER Consulting Unavailable HONG, DR CAITIE Roque Attending Unavailabl e REINECK, DR CAITIE Roque Consulting Unavailabl e DEFBHUPENDRA, DR GORMAN Primary Care Unavailable HONG, DR CAITIE Roque Admitting Unavailabl e NISSA, DR KASH Richardson Consulting Unavailable GWENDOLYN BUNN Consulting Unavailable Jean Carlos, Dr. Lake Chan Attending Unava ilable Jean Carlos, Dr. Lake Chan Referring Unava ilable Lena, Dr. Sherif Magana Primary Care Unava ilable Sherif Paredes MD Primary Care Provider GOPAL NOVA Admitting Unavailable GOPAL NOVA Attending Unavailable REF PROV, NOT IN SYSTEM Referring Unavaila ble DEFRANCE, SHERIF T Primary Care Unavailable JOHNATHAN PINTO Consulting Unavailable STEPHANIEROLAND PATINO Consulting Unavailable JANICE ZAMORANO Consulting Unavailable MAGEDUARDO, RAYFOREIGN Referring Unavailable DEFRANCE, SHERIF T Primary Care Unavailable MAGEDUARDO RAYAN Referring Unavailable DEFRANCE, SHERIF T Primary Care Unavailable PRASANNA THORNTON Referring Unavailable LENA, SHERIF Lofton Primary Care Unavailable MD Sherif Paredes Primary Care Provider [phone] MD Donovan La Admit Provider MD Donovan La Attending Provider [phone] FELIPE Barber Other Provider Unavailable FELIPE Heredia Other Provider Unavailable FELIPE Galicia Other Provider Unavailable FELIPE Enriquez Other Provider Unavailable FELIPE Burris Other Provider Unavailable FELIPE Mendieta Other Provider Unavailable FELIPE Butler Other Provider Unavailable MD Sole Ellington Other Provider MD Prem Carrasco Other Provider Unavailable NAN North Other Provider [phone] DO Aayush Faith Other Provider MD Fuentes Nazario Other Provider DO Cesar Parr Other Provider MD Emanuel Stevenson Other Provider [phone] MD Niurka Chung Other Provider MD Alex Hernandes Other Provider Unavailable NAN Andrea Other Provider [phone] MD Hali Springer Other Provider MD Fercho [...] [place] Other Provider NAN Lipscomb Other Provider [phone] NAN Leavitt Other Provider [phone] MD Naye Saxena Other Provider MD Triston Camp Other Provider DO Lee Dumont Other Provider [phone] NAN Garrett Other Provider Unavaila annabelle SegunDO connor Yazid Other Provider FELIPE Dan Other Provider Unavailable Sherif Paredes Primary Care Unavailable Hernan Minaya Attending Unavailable Donovan La Admitting Unavaila ble Jessica Barber Consulting Unavailable Gabbie Heredia Consulting Unavailable Shaista Galicia Consulting Unavailable Harriet Enriquez Consulting Unavailable Carmen Burris Consulting Unavailable Shreya Mendieta Consulting Unavailable Richa Butler Consulting Unavailable Sole Ellington Consulting Unavailable DaniloPrem hoover Consulting Unavailable Catei North Consulting Unavailable Aayush Faith Consulting Unavailable Fuentes Nazario Consulting Unavailable Cesar Parr Consulting UnavailEmanuel Yanes Consulting Unavailable Semaskiene, Niurka Consulting Unavailable CecilioAlex mujica Consulting Unavailable Jessie Andrea Consulting UnavailHali Avila Consulting Unavailable Fercho Nebwy Consulting Unavailable Adriana Ling Consulting Unavailable Saloni Esposito Consulting Unavailable Kay Blackburn Consulting Unavailable Lindsey Mcghee Consulting Unavailable Bahman Harley Consulting Unavailable Kell Dyer Consulting Unavailable Rebekah Rodríguez Consulting Unavailable Fletcher Pollard Consulting UnavailGui Boudreaux Consulting Unavailable Alexx Garcia Consulting Unavailable AlmoselArlene avendaño Consulting Unavailable Mesfin, Rohit Consulting Unavailable Radha Islas Consulting Unavailable Crow Ceballos Consulting Unavailable MiniaciDominic Consulting Unavailable ObikaSarah Consulting Unavailable Sav Malcolm Consulting Unavailable DaromarAngel Consulting Unavailable Carmen Lipscomb Consulting Unavailable Fouzia Leavitt Consulting Unavailable AlahmadNaye Consulting Unavailable Triston Camp Consulting Unavailable Lee Dumont Consulting Unavailable Jewels Garrett Consulting Unavailable Kandice Cast Consulting Unavailable Yuli Dan Consulting Unavailable Trinh Bailey Attending Unavailable Trinh Bailey Admitting Unavailable Defrance, Sherif Primary Care Unavailable DEFRANCE, SHERIF Lofton Attending Unavailable DEFRANCE, SHERIF Lofton Referring Unavailable DEFRANCE, SHERIF Lofton Primary Care Unavailable DEFRANCE, SHERIF Lofton Referring Unavailable DEFRANCE, SHERIF Lofton Primary Care Unavailable DEFRANCE, SHERIF Lofton Referring Unavailable DEFRANCE, SHERIF Lofton Primary Care Unavailable DEFRANCE, SHERIF Lofton Referring Unavailable DEFRANCE, SHERIF Lofton Primary Care Unavailable Defrance Sherif ORTEGA Primary Care Provider Lake Evangelista DO Unavailable [phone] Sagar WANG, Dena Unavailable Unavailable Allergies Allergy Classification Reported Allergen(s) Allergy Type Date of Onset Reaction(s) Facility (10 sources) atorvastatin; Translations: [ATORVASTATIN] Drug Allergy 6 [facility] Rep[facility] Medications Current Medications Medication Drug Class(es) Dates Sig (Normalized) Sig (Original) acetaminophen 500 mg oral tablet (1 source) Start: 10-03-2023 take 500 mg by mouth every four hours Acetaminophen Active 500 MG PO Q4H October 03, 2023 12:00am aspirin 81 mg chewable tablet (14 sources) Platelet Aggregation Inhibitor, Nonsteroidal Anti-inflammatory Drug [...] Once a day Active meclizine hydrochloride 25 m g oral tablet (4 sources) Antiemetic Start: 10-03-2023 meclizine (Ant ivert) 25 mg tablet 1 tablet (25 mg) 3 times a day as needed. 0 10/03/2023 Active Start: 10-03-2023 take 25 mg by mouth every eight hours Meclizine Active 25 MG PO Every 8 hours 90 October 03, 2023 12:00am End: 10-22-2023 meclizine (ANTIVERT) 25 mg t ablet Indications: vertigo Chew 1 tablet (25 mg total) and swallow 3 (three) times a day as needed for dizziness Indications: sensation of spinning or whirling. Take every 8 hours as needed for dizziness 0 10/22/2023 Discontinued (Alternate therapy) melatonin 5 mg oral tablet (6 sources) Start: 09-25-2023 End: 10-24-2023 take 1 tablet by mouth once daily melatonin 5 mg tablet Take 1 tablet (5 mg) by mouth once daily. 0 09/25/2023 10/24/2023 Discontinued (Therapy completed) Start: 09-25-2023 take 5 mg by mouth at bedtime Melatonin Active 5 MG PO Bedtime September 25, 2023 12:00am metFORMIN hydrochloride 500 mg oral tablet (6 sources) Biguanide Start: 09-25-2023 End: 10-24-2023 take 1 tablet by mouth once daily at breakfast metFORMIN (Glucophage) 500 mg tablet Take 1 tablet (500 mg) by mouth once daily with breakfast. 0 09/26/2023 10/24/2023 Discontinued (Therapy completed) metoprolol tartrate 25 mg oral tablet (15 sources) beta-Adrenergic Ari Start: 09-25-2023 take 0.5 tablet by mouth twice daily metoprolol tartrate (Lopressor) 25 mg tablet Take 0.5 tablets (12.5 mg) by mouth twice a day. 0 09/25/2023 Active Start: 05-04-2020 take 1 tablet by letty th in the morning, then take 1 tablet by mouth at bedtime metoprolol tartrate (LOPRESSOR) 25 mg tablet Take 1 tablet (25 mg total) by mouth in the morning and 1 tablet (25 mg total) before bedtime. 0 09/25/2023 Active take 1 capsule by mo uth once daily Metoprolol Succinate 50 MG 1 capsule Orally Once a day Active take 0.5 tablet by m outh twice daily Metoprolol Tartrate 25 MG Oral Tablet Take 1/2 tablet two times daily Quantity: 90 Refills: 3 Ordered: 21-Nov-2022 Lake Evangelista DO Active omega-3 acid ethyl esters (care home) 1000 mg oral capsule (6 sources) Start: 09-25-2023 Makoti-3 Acid Ethyl Esters (Lovaza) 1 gram capsule Active 1 CAP PO Twice daily September 25, 2023 12:00am rosuvastatin calcium 40 mg oral tablet (6 sources) HMG-CoA Reductase Inhibitor Start: 09-25-2023 End: 10-24-2023 take 1 tablet by mouth once daily rosuvastatin (Crestor) 40 mg tablet Take 1 tablet (40 mg) by mouth once daily. 0 09/25/2023 10/24/2023 Discontinued (Therapy completed) 72 hr scopolamine 0.0139 mg/hr transdermal system (7 sources) Anticholinergic Start: 09-26-2023 End: 10-24-2023 scopolamine (Transderm-Scop) 1 mg over 3 days patch [address] 1 patch on the skin every 3rd day. 0 09/26/2023 10/24/2023 Discontinued (Therapy completed) Start: 09-25-2023 End: 10-03-2023 Scopolamine Base Active 1 PA TCH TRANSDERML Every 72 hours 06 11October 03, 2023 2:10pm simvastatin 20 mg oral tablet (12 sources) HMG-CoA Reductase Inhibitor Start: 09-12-2022 take 1 tablet by mouth at bedtime Simvastatin 40 MG Oral Tablet TAKE 1 TABLET AT BEDTIME Quantity: 90 Refills: 3 Ordered: 21-Nov-2022 Lake Evangelista DO Start : 12-Sep-2022 Active Start: 05-04-2020 End: 10-03-2023 take 20 mg by mouth once daily at bedtime Simvastatin Active 20 MG PO Daily at bedtime October 03, 2023 2:10pm SIMVASTATIN ORAL Take by mouth. 0 Active take 1 tablet by letty th at bedtime Simvastatin 40 MG Oral Tablet TAKE 1 TABLET AT BEDTIME. Quantity: 90 Refills: 0 Ordered: 25-Apr-2022 Jean Carlos Lake Active tamsulosin hydrochloride 0.4 mg oral capsule (8 sources) alpha-Adrenergic Ari Start: 09-25-2023 End: 10-22-2023 take 1 capsule by mouth once daily tamsulosin (Flomax) 0.4 mg 24 hr capsule Take 1 capsule (0.4 mg) by mouth once daily. 0 09/25/2023 Active Completed/Discontinued Medications Medication Drug Class(es) Dates Sig (Normalized) Sig (Original) nitroglycerin 0.4 mg sublingual tablet (10 sources) Nitrate Vasodilator Start: 05-17-2021 Nitroglycerin 0.4 MG Sublingual Tablet Sublingual PLACE 1 TABLET UNDER THE TONGUE EVERY 5 MINUTES FOR UP TO 3 DOSES NEEDED FOR CHEST PAIN.CALL 911 IF PAIN PERSISTS. Quantity: 1 Refills: 5 Ordered: 24-Nov-2022 Lake Evangelista DO Start : 17-May-2021 Active nitroglycerin (N itrostat) 0.[address] 1 tablet under the tongue if needed every 5 minutes for selam... (REFER TO PRESCRIPTION NOTES). 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; Translations: [Atherosclerosis of autologous artery coronary artery bypass graft(s) with other forms of angina pectoris] Onset: 01-31-2018 10-22-2023 Chronic Conditions associated with dizziness or vertigo (4 sources) Dizziness and giddiness; Translations: [Vertigo] Onset: 01-23-2018 09-26-2023 Episodic Conditions associated with dizziness or vertigo (1 source) Conditions associated with dizziness or vertigo Onset: 01-23-2018 Coronary atherosclerosis and other heart disease (20 sources) Atherosclerotic heart disease of [place] coronary artery without angina pectoris; Translations: [Coronary atherosclerosis] Onset: 03-26-2018 01-31-2018 Chronic Coronary atherosclerosis and other heart disease (10 sources) Post percutaneous transluminal coronary angioplasty; Translations: [Percutaneous transluminal coronary angioplasty status] Onset: 09-15-2021 Episodic Coronary atherosclerosis and other heart disease (1 source) Coronary atherosclerosis and other heart disease Onset: 03-26-2018 Disorders of lipid metabolism (14 sources) Hyperlipidemia; Translations: [Other and unspecified hyperlipidemia] Onset: 09-25-2023 09-27-2023 Chronic Essential hypertension (20 sources) Essential (primary) hypertension; Translations: [Hypertensive disorder] Onset: 01-23-2018 01-31-2018 Chronic Hyperplasia of prostate (4 sources) Benign prostatic hyperplasia; Translations: [Benign prostatic hyperplasia without lower urinary tract symptoms] 01-31-2018 Chronic Late effects of cerebrovascular disease (2 sources) 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; Translations: [Vertigo as late effect of stroke] Onset: 02-06-2022 10-24-2023 Chronic Malaise and fatigue (1 source) Other malaise; Translations: [Other malaise] Onset: 01-23-2018 Episodic Occlusion or stenosis of precerebral arteries (17 sources) Bilateral stenosis of carotid arteries; Translations: [Occlusion and stenosis of carotid artery without mention of cerebral infarction] Onset: 12-06-2021 Resolved: 12-06-2021 Chronic Other aftercare (1 source) 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; Translations: [HALFWAY CURRENT USE OF ASPIRIN] Onset: 04-26-2022 Episodic Other aftercare (1 source) Other group home (current) drug therapy; Translations: [OTH HALFWAY CURRENT DRUG THERAPY] Onset: 04-26-2022 Episodic Other [...] Onset: 04-26-2022 Episodic Other nervous system disorders (5 sources) Numbness of upper limb; Translations: [Anesthesia of skin] Onset: 09-07-2016 01-31-2018 Episodic Other non-traumatic joint disorders (4 sources) Pain in left hip; Translations: [PAIN IN LEFT HIP] Onset: 04-24-2022 Episodic Other nutritional; endocrine; and metabolic disorders (9 sources) Overweight in adulthood with body mass index of 25 or more but less than 30; Translations: [Overweight] Episodic Residual codes; unclassified (1 source) History of cardiac catheterization; Translations: [Other specified postprocedural states] 09-27-2023 Episodic Residual codes; unclassified (2 sources) Other specified postprocedural states; Translations: [Other postprocedural status] Onset: 09-25-2023 10-04-2023 Episodic Residual codes; unclassified (1 source) Other specified health status; Translations: [Other specified health status] Onset: 09-25-2023 Episodic Residual codes; unclassified (1 source) Pain, unspecified; Translations: [Pain, unspecified] Onset: 09-20-2023 Episodic Transient cerebral ischemia (6 sources) Transient cerebral ischemic attack, unspecified; Translations: [Transient cerebral ischemia] Onset: 11-25-2015 01-31-2018 Chronic Transient cerebral ischemia (1 source) Transient cerebral ischemia Onset: 11-25-2015 Unclassified (1 source) Unknown / UNK(Unknown) Onset: 01-23-2018 Unclassified (1 source) Numbness / 75() Onset: 09-07-2016 Unclassified (2 sources) Athscl heart disease of [place] coronary artery w/o ang pctrs / I25.10(ICD-9) [...] stenosis of bilateral carotid arteries] Onset: 12-12-2022 Unclassified (1 source) BELÉN Onset: 10-22-2023 Past or Other Problems Problem Classification Problem Date Documented Da te Episodic/Chronic E Codes: Fall (1 source) Fall on and from ladder, initial encounter; Translations: [FALL ON AND FROM LADDER INITIAL ENC] Onset: 02-06-2022 Episodic Mood disorders (4 sources) Mood disorders Onset: 09-20-2023 Resolved: 10-22-2023 09-20-2023 Nonspecific chest pain (4 sources) Chest pain, unspecified; Translations: [CHEST PAIN UNSPECIFIED] Onset: 09-13-2021 Episodic Other nervous system disorders (3 sources) Anesthesia of skin; Translations: [Paresthesia of skin] Onset: 01-23-2018 Episodic Other non-traumatic joint disorders (4 sources) Pain in left shoulder; Translations: [PAIN IN LEFT SHOULDER] Onset: 02-04-2022 Episodic Superficial injury; contusion (1 source) Contusion of left shoulder, initial encounter; Translations: [CONTUSION LEFT SHOULDER INITIAL ENC] Onset: 02-06-2022 Episodic Unclassified (9 sources) Never smoked tobacco; Translations: [Never a smoker] Unclassified (1 source) Onset: 10-24-2023 10-24-2023 Results Test Name Value Interpretation Reference Range Facility Glucose Glucometer (BldC) [M ass/Vol]Ordered By: Donovan La on 10-04-2023 Glucose [Mass/Vol] 116 mg/dL [facility] Comment on above: Random Glucose Refer ence Range is dependent on time and content of last meal. Glucose of more than 200 mg/dL in a nonstressed, ambulatory subject supports the diagnosis of Diabetes Mellitus. Glucose Poct Glucometerson 0 10-04-2023 Commemt1 Glu2: Cleaned Meter Normal [facility] Comment on above: Result Comment: PERF ORMED BY: [place] [address] PATHOLOGIST RESAW CARRIAGE OPERATOR DENIS PARADA M.D. Performed By: #### C BC, BMP #### [address] Glucose [Mass/Vol] 116 mg/dL Normal [facility] Comment on above: Result Comment: [place] [facility] Glucose Reference Range is dependent on time and content of last meal. Glucose of more than 200 mg/dL in a nonstressed, ambulatory subject supports the diagnosis of Diabetes Mellitus. Performed By: #### C BC, BMP #### [address] No Panel InformationOrdered By: Donovan La on 10-04-2023 Bedside Glucose Comment Glu2: cleaned meter [facility] Glucose Poct Glucometerson 0 10-03-2023 Glucose [Mass/Vol] 119 mg/dL Normal [facility] Comment on above: Result Comment: [place] [facility] Glucose Reference Range is dependent on time and content of last meal. Glucose of more than 200 mg/dL in a nonstressed, ambulatory subject supports the diagnosis of Diabetes Mellitus. PERFORMED BY: [place] [address] PATHOLOGIST RESAW CARRIAGE OPERATOR DENIS PARADA M.D. Performed By: #### G LULS #### Point of Care testing , Glucose [Mass/Vol] 119 mg/dL Normal [facility] Comment on above: Result Comment: [place] Glucose Reference Range is dependent on time and content of last meal. Glucose of more than 200 mg/dL in a nonstressed, ambulatory subject supports the diagnosis of Diabetes Mellitus. PERFORMED BY: [place] [address] PATHOLOGIST RESAW CARRIAGE OPERATOR DENIS PARADA M.D. Performed By: #### C BC, BMP #### [place] [address] [place] [id number] [place] Glucose Poct Glucometerson 0 10-02-2023 Glucose [Mass/Vol] 112 mg/dL Normal [facility] Comment on above: Result Comment: [facility] Glucose Reference Range is dependent on time and content of last meal. Glucose of more than 200 mg/dL in a nonstressed, ambulatory subject supports the diagnosis of Diabetes Mellitus. PERFORMED BY: [place] [address] PATHOLOGIST RESAW CARRIAGE OPERATOR DENIS PARADA M.D. Performed By: #### G LULS #### Point of Care testing , Glucose [Mass/Vol] 111 mg/dL Normal [facility] Comment on above: Result Comment: [facility] Glucose Reference Range is dependent on time and content of last meal. Glucose of more than 200 mg/dL in a nonstressed, ambulatory subject supports the diagnosis of Diabetes Mellitus. PERFORMED BY: [place] [address] PATHOLOGIST RESAW CARRIAGE OPERATOR DENIS PARADA M.D. Performed By: #### G LULS #### Point of Care testing , CT head/brain wo conon 10-01 CT head/brain wo [facility] Main [place] [id number] CT Scan Report Signed Patient: Janice Shultz MR#: [id number] 7 : 1945 Acct:[id number] Age/Sex: 78 / M ADM Date: 09/25/23 Loc: Room: [address] [place] [address] Type: ADM IN Attending Dr: Donovan La [...] Kelvin Vasquez M.D.10/01/2023 9:43 AM Dictation Location: [place] [address] Transcribed By: NAINA 10/01/23 0943 Dictated By: Kelvin Vasquez II, MD 10/01/23 0941 Signed By: 10/01/[address] [facility] Glucose Poct Glucometerson 0 10-01-2023 Commemt1 Glu2: Cleaned Meter [facility] Comment on above: Result Comment: PERF ORMED BY: [facility] [address] [place] [address] PATHOLOGIST RESAW CARRIAGE OPERATOR DENIS PARADA M.D. Performed By: #### G ALEKSANDAR #### Point of Care testing , Glucose [Mass/Vol] 111 mg/dL [facility] Comment on above: Result Comment: [place] Glucose Reference Range is dependent on time and content of last meal. Glucose of more than 200 mg/dL in a nonstressed, ambulatory subject supports the diagnosis of Diabetes Mellitus. Performed By: #### G RAULLS #### Point of Care testing , Glucose [Mass/Vol] 112 mg/dL Normal [facility] Comment on above: Result Comment: [facility] Glucose Reference Range is dependent on time and content of last meal. Glucose of more than 200 mg/dL in a nonstressed, ambulatory subject supports the diagnosis of Diabetes Mellitus. PERFORMED BY: [facility] [address] [place] [address] PATHOLOGIST RESAW CARRIAGE OPERATOR DENIS PARADA M.D. Performed By: #### G LULS #### Point of Care testing , Basic Metabolic Panelon 09-13 Anion gap [Moles/Vol] 10.5 mmol/L Normal 6.0-15.0 [facility] Comment on above: Performed By: #### C BC, BMP #### [facility] [address] Calcium [Mass/Vol] 9.3 mg/dL Normal 8.6-10.3 [facility] Comment on above: Performed By: #### C BC, BMP #### [facility] [address] [place] [address] [place] Chloride [Moles/Vol] 102 mmol/L Normal 98-107 [facility] Comment on above: Performed By: #### C BC, BMP #### [facility] [address] [place] [address] [place] CO2 [Moles/Vol] 26.8 mmol/L Normal 21.0-31.0 [facility] Comment on above: Performed By: #### C BC, BMP #### [facility] [address] [place] [id number] [place] Creatinine [Mass/Vol] 1.15 mg/dL Normal 0.70-1.30 [facility] Comment on above: Performed By: #### C BC, BMP #### [facility] [address] [place] [address] [place] Creatinine Clr Calc Pharmacy 58.20 Normal [facility] Comment on above: Result Comment: PERF ORMED BY: [facility] [address] [place] [address] PATHOLOGIST RESAW CARRIAGE OPERATOR DENIS PARADA M.D. Performed By: #### C BC, BMP #### [facility] [address] [place] [address] [place] GFR/1.73 sq M.predicted MDRD (S/P/Bld) [Vol rate/Area] mL/min/{1.73_m2} [facility] Comment on above: Performed By: #### C BC, BMP #### [address] Glucose [Mass/Vol] 105 mg/dL High 70-100 [facility] Comment on above: Result Comment: [facility] Glucose Reference Range is dependent on time and content of last meal. Glucose of more than 200 mg/dL in a nonstressed, ambulatory subject supports the diagnosis of Diabetes Mellitus. ADA recommended reference range Performed By: #### C BC, BMP #### [address] Potassium [Moles/Vol] 4.3 mmol/L Normal 3.5-5.1 [facility] Comment on above: Performed By: #### C BC, BMP #### [address] Sodium [Moles/Vol] 135 mmol/L Low 136-145 [facility] Comment on above: Performed By: #### C BC, BMP #### [address] Urea nitrogen [Mass/Vol] 25 mg/dL Normal 7-25 [facility] Comment on above: Performed By: #### C BC, BMP #### [facility] [address] [place] [address] [place] Basophils Auto (Bld) [#/Vol] Ordered By: Tracy Fernandez on 09-30-2023 Basophils (Bld) [#/Vol] 0.1 10*3/uL 0.0-0.2 [facility] Basophils/100 WBC Auto (Bld) Ordered By: Tracy Fernandez on 09-30-2023 Basophils/100 WBC (Bld) 0.8 % . [facility] Calcium [Mass/volume] in Ser um or PlasmaOrdered By: Tracy Fernandez on 09-30-2023 Calcium [Mass/Vol] 9.3 mg/dL 8.6-10.3 [facility] Carbon dioxide, total [Moles /volume] in Serum or PlasmaOrdered By: Tracy Fernandez on 09-30-2023 CO2 [Moles/Vol] 26.8 mmol/L 21.0-31.0 [facility] Chloride [Moles/volume] in S papi or PlasmaOrdered By: Tracy Fernandez on 09-30-2023 Chloride [Moles/Vol] 102 mmol/L 98-107 [facility] Complete Blood Count Auto Di ffon 09-30-2023 Basophils (Bld) [#/Vol] 0.1 10*3/uL Normal 0.0-0.2 [facility] Comment on above: Result Comment: PERF ORMED BY: [place] [address] PATHOLOGIST [employer] CARRIAGE OPERATOR DENIS PARADA M.D. Performed By: #### C BC, BMP #### [facility] [address] [place] [address] [place] Basophils/100 WBC (Bld) 0.8 % Normal . [facility] Comment on above: Performed By: #### C BC, BMP #### [facility] [address] [place] [address] [place] Eosinophils (Bld) [#/Vol] 0.2 10*3/uL Normal 0.0-0.45 [facility] Comment on above: Performed By: #### C BC, BMP #### [facility] [address] [place] [address] [place] Eosinophils/100 WBC (Bld) 2.1 % Normal . [facility] Comment on above: Performed By: #### C BC, BMP #### [facility] [address] Erythrocyte distribution width (RBC) [Ratio] 13.9 % Normal 12.0-14.8 [facility] Comment on above: Performed By: #### C BC, BMP #### [facility] [address] Hematocrit (Bld) [Volume fraction] 42.2 % Normal 38.8-50.0 [facility] Comment on above: Performed By: #### C BC, BMP #### [facility] [address] Hemoglobin (Bld) [Mass/Vol] 13.9 g/dL Normal 13.0-17.0 [facility] Comment on above: Performed By: #### C BC, BMP #### [facility] [address] Lymphocytes (Bld) [#/Vol] 2.0 10*3/uL Normal 1.00-4.8 [facility] Comment on above: Performed By: #### C BC, BMP #### [address] Lymphocytes/100 WBC (Bld) 21.6 % Normal . [facility] Comment on above: Performed By: #### C BC, BMP #### [address] MCH (RBC) [Entitic mass] 27.9 pg Normal 27.5-35.2 [facility] Comment on above: Performed By: #### C BC, BMP #### [address] MCV (RBC) [Entitic vol] 84.7 fL Normal 83.5-101 [facility] Comment on above: Performed By: #### C BC, BMP #### [address] Mean Corpuscular HGB Conc 32.9 g/dL Normal 32.5-35.6 [facility] Comment on above: Performed By: #### C BC, BMP #### [facility] [address] Monocytes (Bld) [#/Vol] 0.7 10*3/uL Normal 0.0-0.8 [facility] Comment on above: Performed By: #### C BC, BMP #### [facility] [address] [place] [id number] [place] Monocytes/100 WBC (Bld) 7.8 % Normal . [facility] Comment on above: Performed By: #### C BC, BMP #### [facility] [address] [place] [id number] [place] Neutrophils (Bld) [#/Vol] 6.2 10*3/uL Normal 1.8-7.7 [facility] Comment on above: Performed By: #### C BC, BMP #### [facility] [address] Neutrophils/100 WBC (Bld) 67.7 % Normal . [facility] Comment on above: Performed By: #### C BC, BMP #### [facility] [address] NRBC% 0.1 /100{WBC} Normal 0-0.5 [facility] Comment on above: Performed By: #### C BC, BMP #### [facility] [address] [place] [address] [place] Platelet mean volume (Bld) [Entitic vol] 8.6 fL Normal 6.6-10.1 [facility] Comment on above: Performed By: #### C BC, BMP #### [facility] [address] [place] [address] [place] Platelets (Bld) [#/Vol] 309 10*3/uL Normal 150-450 [facility] Comment on above: Performed By: #### C BC, BMP #### [facility] [address] [place] [address] [place] RBC (Bld) [#/Vol] 4.99 10*6/uL Normal 3.90-5.60 [facility] Comment on above: Performed By: #### C BC, BMP #### [facility] [address] [place] [address] [place] WBC (Bld) [#/Vol] 9.2 10*3/uL Normal 4.1-10.5 [facility] Comment on above: Performed By: #### C BC, BMP #### [facility] [address] [place] [address] [facility] Creatinine [Mass/volume] in Serum or PlasmaOrdered By: Tracy Fernandez on 09-30-2023 Creatinine [Mass/Vol] 1.15 mg/dL 0.70-1.30 [facility] Eosinophils Auto (Bld) [#/Vo l]Ordered By: Tracy Fernandez on 09-30-2023 Eosinophils (Bld) [#/Vol] 0.2 10*3/uL 0.0-0.45 [facility] Eosinophils/100 WBC Auto (Bl d)Ordered By: Tracy Fernandez on 09-30-2023 Eosinophils/100 WBC (Bld) 2.1 % . [facility] Erythrocyte distribution wid th Auto (RBC) [Ratio]Ordered By: Tracy Fernandez on 09-30-2023 Erythrocyte distribution width (RBC) [Ratio] 13.9 % 12.0-14.8 [facility] Glucose Poct Glucometerson 0 09-30-2023 Commemt1 Glu2: Cleaned Meter Normal [facility] Comment on above: Result Comment: PERF ORMED BY: [facility] [address] [place] [id number] PATHOLOGIST [employer] CARRIAGE OPERATOR DENIS PARADA M.D. Performed By: #### G LULS #### Point of Care testing , Glucose [Mass/Vol] 94 mg/dL Normal [facility] Comment on above: Result Comment: [place] Glucose Reference Range is dependent on time and content of last meal. Glucose of more than 200 mg/dL in a nonstressed, ambulatory subject supports the diagnosis of Diabetes Mellitus. Performed By: #### G LULS #### Point of Care testing , Glucose [Mass/Vol] 98 mg/dL Normal [facility] Comment on above: Result Comment: [place] Glucose Reference Range is dependent on time and content of last meal. Glucose of more than 200 mg/dL in a nonstressed, ambulatory subject supports the diagnosis of Diabetes Mellitus. PERFORMED BY: [facility] [address] [place] [address] PATHOLOGIST [employer] CARRIAGE OPERATOR DENIS PARADA M.D. Performed By: #### G LULS #### Point of Care testing , Glucose [Mass/Vol] 112 mg/dL Normal [facility] Comment on above: Result Comment: [place] om Glucose Reference Range is dependent on time and content of last meal. Glucose of more than 200 mg/dL in a nonstressed, ambulatory subject supports the diagnosis of Diabetes Mellitus. PERFORMED BY: [facility] [place] [address] PATHOLOGIST [employer] CARRIAGE OPERATOR DENIS PARADA M.D. Performed By: #### G LULS #### Point of Care testing , Glucose [Mass/volume] in Ser um or PlasmaOrdered By: Tracy Fernandez on 09-30-2023 Glucose [Mass/Vol] 105 mg/dL 70-100 [facility] Comment on above: ADA recommended refe rence rangeRandom Glucose Reference Range is dependent on time and content of last meal. Glucose of more than 200 mg/dL in a nonstressed, ambulatory subject supports the diagnosis of Diabetes Mellitus. Hematocrit Auto (Bld) [Volum e fraction]Ordered By: Tracy Fernandez on 09-30-2023 Hematocrit (Bld) [Volume fraction] 42.2 % 38.8-50.0 [facility] Hemoglobin [Mass/volume] in BloodOrdered By: Tracy Fernandez on 09-30-2023 Hemoglobin (Bld) [Mass/Vol] 13.9 g/dL 13.0-17.0 [facility] Leukocytes [#/volume] correc alysia for nucleated erythrocytes in Blood by Automated counOrdered By: Tracy Fernandez on 09-30-2023 WBC corrected for nucl RBC Auto (Bld) [#/Vol] 9.2 10*3/uL 4.1-10.5 [facility] Lymphocytes Auto (Bld) [#/Vo l]Ordered By: Tracy Fernandez on 09-30-2023 Lymphocytes (Bld) [#/Vol] 2.0 10*3/uL 1.00-4.8 [facility] Lymphocytes/100 WBC Auto (Bl d)Ordered By: Tracy Fernandez on 09-30-2023 Lymphocytes/100 WBC (Bld) 21.6 % . [facility] MCH Auto (RBC) [Entitic mass ]Ordered By: Tracy Fernandez on 09-30-2023 MCH (RBC) [Entitic mass] 27.9 pg 27.5-35.2 [facility] MCHC Auto (RBC) [Mass/Vol]Or dered By: Tracy Fernandez on 09-30-2023 MCHC (RBC) [Mass/Vol] 32.9 g/dL 32.5-35.6 [facility] MCV Auto (RBC) [Entitic vol] Ordered By: Tracy Fernandez on 09-30-2023 MCV (RBC) [Entitic vol] 84.7 fL 83.5-101 [facility] Monocytes Auto (Bld) [#/Vol] Ordered By: Tracy Fernandez on 09-30-2023 Monocytes (Bld) [#/Vol] 0.7 10*3/uL 0.0-0.8 [facility] Monocytes/100 WBC Auto (Bld) Ordered By: Tracy Fernandez on 09-30-2023 Monocytes/100 WBC (Bld) 7.8 % . [facility] Neutrophils Auto (Bld) [#/Vo l]Ordered By: Tracy Fernandez on 09-30-2023 Neutrophils (Bld) [#/Vol] 6.2 10*3/uL 1.8-7.7 [facility] Neutrophils/100 WBC Auto (Bl d)Ordered By: Tracy Fernandez on 09-30-2023 Neutrophils/100 WBC (Bld) 67.7 % . [facility] No Panel InformationOrdered By: Tracy Fernandez on 09-30-2023 Estimated GFR (CKD-EPI) > 60.0 mL/Min [facility] Creatinine Clearance (Chem 58.20 [facility] Nucleated erythrocytes [Pres ence] in Blood by Automated countOrdered By: Tracy Fernandez on 09-30-2023 Nucleated RBC Auto Ql (Bld) 0.1 /100{WBC} 0-0.5 [facility] Platelet mean volume Auto (B ld) [Entitic vol]Ordered By: Tracy Fernandez on 09-30-2023 Platelet mean volume (Bld) [Entitic vol] 8.6 fL 6.6-10.1 [facility] Platelets Auto (Bld) [#/Vol] Ordered By: Tracy Fernandez on 09-30-2023 Platelets (Bld) [#/Vol] 309 10*3/uL 150-450 [facility] Potassium [Moles/volume] in Serum or PlasmaOrdered By: Tracy Fernandez on 09-30-2023 Potassium [Moles/Vol] 4.3 mmol/L 3.5-5.1 [facility] RBC Auto (Bld) [#/Vol]Ordere d By: Tracy Fernandez on 09-30-2023 RBC (Bld) [#/Vol] 4.99 10*6/uL 3.90-5.60 [facility] Serum or plasma anion gap de terminationOrdered By: Tracy Fernandez on 09-30-2023 Anion gap [Moles/Vol] 10.5 mmol/L 6.0-15.0 [facility] [place] Sodium [Moles/volume] in Ser um or PlasmaOrdered By: Tracy Fernandez on 09-30-2023 Sodium [Moles/Vol] 135 mmol/L 136-145 [facility] Urea nitrogen [Mass/volume] in Serum or PlasmaOrdered By: Tracy Fernandez on 09-30-2023 Urea nitrogen [Mass/Vol] 25 mg/dL 7-25 [facility] WBC Auto (Bld) [#/Vol]Ordere d By: Tracy Fernandez on 09-30-2023 WBC (Bld) [#/Vol] 9.2 10*3/uL 4.1-10.5 [facility] Glucose Poct Glucometerson 0 - Commemt1 Glu2: Cleaned Meter Normal [facility] Comment on above: Result Comment: PERF ORMED BY: [facility] [address] [place] [address] PATHOLOGIST [employer] CARRIAGE OPERATOR DENIS PARADA M.D. Performed By: #### G LULS #### Point of Care testing , Glucose [Mass/Vol] 112 mg/dL Normal [facility] Comment on above: Result Comment: [place] om Glucose Reference Range is dependent on time and content of last meal. Glucose of more than 200 mg/dL in a nonstressed, ambulatory subject supports the diagnosis of Diabetes Mellitus. Performed By: #### G LULS #### Point of Care testing , Glucose [Mass/Vol] 99 mg/dL Normal [facility] Comment on above: Result Comment: [place] om Glucose Reference Range is dependent on time and content of last meal. Glucose of more than 200 mg/dL in a nonstressed, ambulatory subject supports the diagnosis of Diabetes Mellitus. PERFORMED BY: [place] [address] PATHOLOGIST [employer]AW CARRIAGE OPERATOR DENIS PARADA M.D. Performed By: #### G LULS #### Point of Care testing , Glucose Poct Glucometerson 0 09-28-2023 Glucose [Mass/Vol] 96 mg/dL Normal [facility] Comment on above: Result Comment: [place] om Glucose Reference Range is dependent on time and content of last meal. Glucose of more than 200 mg/dL in a nonstressed, ambulatory subject supports the diagnosis of Diabetes Mellitus. PERFORMED BY: [place] [address] PATHOLOGIST [employer]AW CARRIAGE OPERATOR DENIS PARADA M.D. Performed By: #### G LULS #### Point of Care testing , Glucose [Mass/Vol] 116 mg/dL Normal [facility] Comment on above: Result Comment: [place] om Glucose Reference Range is dependent on time and content of last meal. Glucose of more than 200 mg/dL in a nonstressed, ambulatory subject supports the diagnosis of Diabetes Mellitus. PERFORMED BY: [place] [phone] PATHOLOGIST [employer]AW CARRIAGE OPERATOR DENIS PARADA M.D. Performed By: #### C BC, BMP #### [address] head/brain wo conon 09-27 CT head/brain wo con [facility] [place] [address] CT Scan Report Signed with [employer]deepak Patient: Janice Shultz MR#: [id number] 7 : 1945 Acct:[id number] Age/Sex: 78 / M ADM Date: 09/25/23 Loc: Room: 7A7251-9 Type: ADM IN Attending Dr: Donovan La [...] progression. Impression dictated by: Hernan Dalton Jr., D.OJana09/27/2023 2:20 PM Dictation Location: [facility]--14 Addendum Dictated By: Hernan Dalton Jr, DO Addendum Signed By: 09/27/231419 Addendum Cosigned [...] 09/27/2023 Impression dictated by: Hernan Dalton Jr., D.OJana09/27/2023 1:40 PM Dictation Location: [place] [address] Transcribed By: PWS 09/27/23 1340 Dictated By: Hernan Dalton Jr, DO 09/27/23 1330 Signed By: 09/27/23 1340 Normal [facility] Glucose Poct Glucometerson 0 09-27-2023 Glucose [Mass/Vol] 104 mg/dL Normal [facility] Comment on above: Result Comment: [facility] Glucose Reference Range is dependent on time and content of last meal. Glucose of more than 200 mg/dL in a nonstressed, ambulatory subject supports the diagnosis of Diabetes Mellitus. PERFORMED BY: [place] [address] PATHOLOGIST [employer]AW CARRIAGE OPERATOR DENIS PARADA M.D. Performed By: #### G LUGLENN #### Point of Care testing , Glucose [Mass/Vol] 114 mg/dL Normal [facility] Comment on above: Result Comment: [facility] Glucose Reference Range is dependent on time and content of last meal. Glucose of more than 200 mg/dL in a nonstressed, ambulatory subject supports the diagnosis of Diabetes Mellitus. PERFORMED BY: [place] [address] PATHOLOGIST [employer]AW CARRIAGE OPERATOR DENIS PARADA M.D. Performed By: #### C BC, [facility] #### [address] Alanine aminotransferase [En zymatic activity/volume] in Serum or PlasmaOrdered By: Donovan La on 09-26-2023 ALT [Catalytic activity/Vol] 48 U/L 7 [facility] Albumin [Mass/volume] in Ser um or Plasma by Bromocresol green (BCG) dye binding methoOrdered By: Donovan La on 09-26-2023 Albumin BCG dye [Mass/Vol] 3.7 g/dL 3.5-5.7 [facility] Alkaline phosphatase [Enzyma tic activity/volume] in Serum or PlasmaOrdered By: Donovan La on 09-26-2023 ALP [Catalytic activity/Vol] 47 U/L 34-104 [facility] Aspartate aminotransferase [ Enzymatic activity/volume] in Serum or PlasmaOrdered By: Donovan La on 09-26-2023 AST [Catalytic activity/Vol] 22 U/L 13-39 [facility] Bilirubin.total [Mass/volume ] in Serum or PlasmaOrdered By: Donovan La on 09-26-2023 Bilirubin [Mass/Vol] 0.7 mg/dL 0.3-1.0 [facility] Complete Blood Count Auto Di ffon 09-26-2023 Basophils (Bld) [#/Vol] 0.1 10*3/uL Normal 0.0-0.2 [facility] Comment on above: Result Comment: PERF ORMED BY: [place] [address] PATHOLOGIST [employer]AW CARRIAGE OPERATOR DENIS PARADA M.D. Performed By: #### C MP, CBC, PAB #### [place] [address] [place] Basophils/100 WBC (Bld) 1.1 % Normal . [facility] Comment on above: Performed By: #### C MP, CBC, PAB #### [facility] [address] [place] [address] [place] Eosinophils (Bld) [#/Vol] 0.2 10*3/uL Normal 0.0-0.45 [facility] Comment on above: Performed By: #### C MP, CBC, PAB #### [facility] [address] [place] [address] [place] Eosinophils/100 WBC (Bld) 2.1 % Normal . [facility] Comment on above: Performed By: #### C MP, CBC, PAB #### [facility] [address] [place] [address] Erythrocyte distribution width (RBC) [Ratio] 13.5 % Normal 12.0-14.8 [facility] Comment on above: Performed By: #### C MP, CBC, PAB #### [address] Hematocrit (Bld) [Volume fraction] 40.4 % Normal 38.8-50.0 [facility] Comment on above: Performed By: #### C MP, CBC, PAB #### [address] Hemoglobin (Bld) [Mass/Vol] 13.7 g/dL Normal 13.0-17.0 [facility] Comment on above: Performed By: #### C MP, CBC, PAB #### [address] Lymphocytes (Bld) [#/Vol] 1.8 10*3/uL Normal 1.00-4.8 [facility] Comment on above: Performed By: #### C MP, CBC, PAB #### [address] Lymphocytes/100 WBC (Bld) 19.4 % Normal . [facility] Comment on above: Performed By: #### C MP, CBC, PAB #### [address] MCH (RBC) [Entitic mass] 28.5 pg Normal 27.5-35.2 [facility] Comment on above: Performed By: #### C MP, CBC, PAB #### [address] MCV (RBC) [Entitic vol] 84.0 fL Normal 83.5-101 [facility] Comment on above: Performed By: #### C MP, CBC, PAB #### [address] Mean Corpuscular HGB Conc 33.9 g/dL Normal 32.5-35.6 [facility] Comment on above: Performed By: #### C MP, CBC, PAB #### [facility] [address] [place] [address] [place] Monocytes (Bld) [#/Vol] 0.9 10*3/uL High 0.0-0.8 [facility] Comment on above: Performed By: #### C MP, CBC, PAB #### [facility] [address] [place] [address] [place] Monocytes/100 WBC (Bld) 9.4 % Normal . [facility] Comment on above: Performed By: #### C MP, CBC, PAB #### [facility] [address] Neutrophils (Bld) [#/Vol] 6.2 10*3/uL Normal 1.8-7.7 [facility] Comment on above: Performed By: #### C MP, CBC, PAB #### [facility] [address] Neutrophils/100 WBC (Bld) 68.0 % Normal . [facility] Comment on above: Performed By: #### C MP, CBC, PAB #### [facility] [address] NRBC% 0.0 /100{WBC} Normal 0-0.5 [facility] Comment on above: Performed By: #### C MP, CBC, PAB #### [facility] [address] Platelet mean volume (Bld) [Entitic vol] 8.4 fL Normal 6.6-10.1 [facility] Comment on above: Performed By: #### C MP, CBC, PAB #### [facility] [address] [place] [address] [place] Platelets (Bld) [#/Vol] 244 10*3/uL Normal 150-450 [facility] Comment on above: Performed By: #### C MP, CBC, PAB #### [facility] [address] [place] [address] [place] RBC (Bld) [#/Vol] 4.81 10*6/uL Normal 3.90-5.60 [facility] Comment on above: Performed By: #### C MP, CBC, PAB #### [facility] [address] WBC (Bld) [#/Vol] 9.1 10*3/uL Normal 4.1-10.5 [facility] Comment on above: Performed By: #### C MP, CBC, PAB #### [facility] [address] Comprehensive Metabolic Pane tejas 09-26-2023 Albumin [Mass/Vol] 3.7 g/dL Normal 3.5-5.7 [facility] Comment on above: Performed By: #### C MP, CBC, PAB #### [address] Albumin/Globulin [Mass ratio] 1.2 {ratio} Normal [facility] Comment on above: Performed By: #### C MP, CBC, PAB #### [address] ALP [Catalytic activity/Vol] 47 U/L Normal 34-104 [facility] Comment on above: Performed By: #### C MP, CBC, PAB #### [address] ALT [Catalytic activity/Vol] 48 U/L Normal 7-52 [facility] Comment on above: Performed By: #### C MP, CBC, PAB #### [facility] [address] [place] [address] Anion gap [Moles/Vol] 12.8 mmol/L Normal 6.0-15.0 [facility] Comment on above: Performed By: #### C MP, CBC, PAB #### [facility] [address] [place] [address] AST [Catalytic activity/Vol] 22 U/L Normal 13-39 [facility] Comment on above: Performed By: #### C MP, CBC, PAB #### [facility] [address] [place] [address] Bilirubin [Mass/Vol] 0.7 mg/dL Normal 0.3-1.0 [facility] Comment on above: Performed By: #### C MP, CBC, PAB #### [facility] [address] [place] [address] [place] Calcium [Mass/Vol] 8.8 mg/dL Normal 8.6-10.3 [facility] Comment on above: Performed By: #### C MP, CBC, PAB #### [facility] [address] [place] [address] [place] Chloride [Moles/Vol] 104 mmol/L Normal 98-107 [facility] Comment on above: Performed By: #### C MP, CBC, PAB #### [facility] [address] [place] [address] [place] CO2 [Moles/Vol] 23.1 mmol/L Normal 21.0-31.0 [facility] Comment on above: Performed By: #### C MP, CBC, PAB #### [facility] [address] [place] [address] [place] Creatinine [Mass/Vol] 0.93 mg/dL Normal 0.70-1.30 [facility] Comment on above: Performed By: #### C MP, CBC, PAB #### [facility] [address] [place] [address] [place] Creatinine Clr Calc Pharmacy 71.97 [facility] Comment on above: Performed By: #### C MP, CBC, PAB #### [facility] [address] [place] [address] [place] GFR/1.73 sq M.predicted MDRD (S/P/Bld) [Vol rate/Area] mL/min/{1.73_m2} [facility] Comment on above: Performed By: #### C MP, CBC, PAB #### [facility] [address] [place] [address] [place] Globulin (S) [Mass/Vol] 3.2 g/dL [facility] Comment on above: Performed By: #### C MP, CBC, PAB #### [facility] [address] [place] [address] [place] Glucose [Mass/Vol] 132 mg/dL High 70-100 [facility] Comment on above: Result Comment: [facility] Glucose Reference Range is dependent on time and content of last meal. Glucose of more than 200 mg/dL in a nonstressed, ambulatory subject supports the diagnosis of Diabetes Mellitus. ADA recommended reference range Performed By: #### C MP, CBC, PAB #### [facility] [address] Potassium [Moles/Vol] 3.9 mmol/L Normal 3.5-5.1 [facility] Comment on above: Performed By: #### C MP, CBC, PAB #### [facility] [address] Protein [Mass/Vol] 6.9 g/dL Normal 6.4-8.9 [facility] Comment on above: Performed By: #### C MP, CBC, PAB #### [facility] [address] [place] [address] [place] Sodium [Moles/Vol] 136 mmol/L Normal 136-145 [facility] Comment on above: Performed By: #### C MP, CBC, PAB #### [facility] [address] [place] [address] [place] Urea nitrogen [Mass/Vol] 23 mg/dL Normal 7-25 [facility] Comment on above: Performed By: #### C MP, CBC, PAB #### [facility] [address] Globulin Calc (S) [Mass/Vol] Ordered By: Donovan La on 09-26-2023 Globulin (S) [Mass/Vol] 3.2 g/dL [facility] Glucose Poct Glucometerson 0 09-26-2023 Glucose [Mass/Vol] 175 mg/dL Normal [facility] Comment on above: Result Comment: [facility] Glucose Reference Range is dependent on time and content of last meal. Glucose of more than 200 mg/dL in a nonstressed, ambulatory subject supports the diagnosis of Diabetes Mellitus. PERFORMED BY: [facility] [address] [place] [address] PATHOLOGIST [employer]AW CARRIAGE OPERATOR DENIS PARADA M.D. Performed By: #### C BC, BMP #### [facility] [address] Glucose [Mass/Vol] 125 mg/dL Normal [facility] Comment on above: Result Comment: [facility] Glucose Reference Range is dependent on time and content of last meal. Glucose of more than 200 mg/dL in a nonstressed, ambulatory subject supports the diagnosis of Diabetes Mellitus. PERFORMED BY: [place] [address] PATHOLOGIST RESAW CARRIAGE OPERATOR DENIS PARADA M.D. Performed By: #### C BC, BMP #### [address] Prealbuminon 09-26-2023 Prealbumin [Mass/Vol] 22.8 mg/dL Normal 17.0-34.0 [facility] Comment on above: Result Comment: PERF ORMED BY: [place] [address] PATHOLOGIST [employer]AW CARRIAGE OPERATOR DENIS PARADA M.D. Performed By: #### C MP, CBC, PAB #### [facility] [address] [place] [address] Prealbumin [Mass/volume] in Serum or PlasmaOrdered By: Donovan La on 09-26-2023 Prealbumin [Mass/Vol] 22.8 mg/dL 17.0-34.0 [facility] Protein [Mass/volume] in Ser um or PlasmaOrdered By: Donovan La on 09-26-2023 Protein [Mass/Vol] 6.9 g/dL 6.4-8.9 [facility] Serum or plasma albumin/glob ulin mass ratioOrdered By: Evangelicalanish La on 09-26-2023 Albumin/Globulin [Mass ratio] 1.2 {ratio} [facility] CBC AND AUTO DIFFon 09-25-19 24 ABSOLUTE BASOPHIL 0.1 X10E9/L Normal 0.0-0.2 [facility] Comment on above: Performed By: #### C BCA, CMP, 41783-4 #### [facility] ([id number]) [address], [address] [place] [address] ABSOLUTE NEUTROPHIL 7.0 X10E9/L High 1.5-6.6 [facility] Comment on above: Performed By: #### Susy GARCIA CMP, 85095-6 #### [facility] ([id number]) [address], [address] [place] [address] Basophils/100 WBC (Bld) 0.6 % Normal [facility] Comment on above: Performed By: #### Susy GARCIA CMP, 84465-9 #### [facility] ([id number]) [address], [address] [place] [address] Eosinophils (Bld) [#/Vol] 0.2 10*3/uL Normal 0.0-0.4 [facility] Comment on above: Performed By: #### Susy GARCIA CMP, 29652-6 #### [facility] ([id number]) [address], [address] [place] [address] Eosinophils/100 WBC (Bld) 2.2 % Normal [facility] Comment on above: Performed By: #### Susy GARCIA CMP, 49771-1 #### [facility] ([id number]) [address], [address] [place] [address] Erythrocyte distribution width (RBC) [Ratio] 13.6 % Normal 11.5-15.0 [facility] Comment on above: Performed By: #### Susy GARCIA CMP, 19094-1 #### [facility] ([id number]) [address], [address] [place] [address] Hematocrit (Bld) [Volume fraction] 44.0 % Normal 39-49 [facility] Comment on above: Performed By: #### Susy GARCIA CMP, 27247-8 #### [facility] ([id number]) [address], [address] [place] [address] Hemoglobin (Bld) [Mass/Vol] 14.7 g/dL Normal 13.0-17.0 [facility] Comment on above: Performed By: #### Susy GARCIA CMP, 02231-6 #### [facility] ([id number]) [address], [address] [place] [address] Lymphocytes (Bld) [#/Vol] 1.5 10*3/uL Normal 1.0-3.5 [facility] Comment on above: Performed By: #### Susy GARCIA CMP, 81815-0 #### [facility] ([id number]) [address], [facility] [address] [place] [address] Lymphocytes/100 WBC (Bld) 15.5 % Normal [facility] Comment on above: Performed By: #### Susy GARCIA CMP, 25194-3 #### [facility] ([id number]) [address], [address] [place] [address] MCH (RBC) [Entitic mass] 28.4 pg Normal 27-34 [facility] Comment on above: Performed By: #### Susy GARCIA CMP, 38809-2 #### [facility] ([id number]) [address], [address] [place] [address] MCHC (RBC) [Mass/Vol] 33.4 g/dL Normal 32-36 [facility] Comment on above: Performed By: #### Susy GARCIA CMP, 90895-5 #### [facility] ([id number]) [address], [address] [place] [address] MCV (RBC) [Entitic vol] 85 fL Normal 80-100 [facility] Comment on above: Performed By: #### Susy GARCIA CMP, 07489-3 #### [facility] ([id number]) [address], [address] [place] [address] Monocytes (Bld) [#/Vol] 0.7 10*3/uL Normal 0-0.9 [facility] Comment on above: Performed By: #### C RADAH, CMP, 77447-8 #### [facility] ([id number]) [address], [address] [place] [address] Monocytes/100 WBC (Bld) 7.4 % Normal [facility] Comment on above: Performed By: #### Susy GARCIA CMP, 95789-9 #### [facility] ([id number]) [address], [address] [place] [address] Neutrophils/100 WBC (Bld) 74.3 % Normal [facility] Comment on above: Performed By: #### Susy GARCIA CMP, 08131-2 #### [facility] ([id number]) [address], [address] [place] [address] Platelet mean volume (Bld) [Entitic vol] 8.7 fL Normal 7-12 [facility] Comment on above: Performed By: #### Susy GARCIA, CMP, 16848-3 #### [facility] ([id number]) [address], [address] [place] [address] Platelets (Bld) [#/Vol] 234 10*3/uL Normal 150-450 [facility] Comment on above: Performed By: #### Susy GARCIA CMP, 32055-9 #### [facility] ([id number]) [address], [address] [place] [address] RBC COUNT 5.19 X10E12/L Normal 4.10-5.70 [facility] Comment on above: Performed By: #### Susy GARCIA, CMP, 02078-4 #### [facility] ([id number]) [address], [address] [place] [address] WBC (Bld) [#/Vol] 9.4 10*3/uL Normal 4.0-11.0 [facility] Comment on above: Performed By: #### Susy GARCIA, CMP, 41676-0 #### [facility] ([id number]) [address], [address] [place] [address] COMPREHENSIVE METABOLIC PANE [place] 09-25-2023 Albumin [Mass/Vol] 3.8 g/dL Normal 3.2-5.3 [facility] Comment on above: Performed By: #### C BCA, CMP, 92580-2 #### [facility] ([id number]) [address], [address] [place] [address] ALP [Catalytic activity/Vol] 48 U/L Normal 39-130 [facility] Comment on above: Performed By: #### C BCA, CMP, 75942-7 #### [facility] ([id number]) [address], [address] [place] [address] ALT [Catalytic activity/Vol] 65 U/L High 0-40 [facility] Comment on above: Performed By: #### C BCA, CMP, 38031-2 #### [facility] ([id number]) [address], [address] [place] [address] Anion gap [Moles/Vol] 10 mmol/L Normal 5-15 [facility] Comment on above: Performed By: #### C BCA, CMP, 96213-7 #### [facility] ([id number]) [address], [address] [place] [address] AST [Catalytic activity/Vol] 48 U/L High 0-41 [facility] Comment on above: Performed By: #### C BCA, CMP, 14370-7 #### [facility] ([id number]) [address], [address] [place] [address] Bilirubin [Mass/Vol] 0.8 mg/dL Normal 0.3-1.2 [facility] Comment on above: Performed By: #### C BCA, CMP, 26962-0 #### [facility] ([id number]) [address], [address] [place] [address] Calcium [Mass/Vol] 8.9 mg/dL Normal 8.5-10.5 [facility] Comment on above: Performed By: #### C WINSOME GARCIA, 47923-1 #### [facility] ([id number]) [address], [address] [place] [address] Chloride [Moles/Vol] 101 mmol/L Normal 98-109 [facility] Comment on above: Performed By: #### C WINSOME GARCIA, 24278-8 #### [facility] ([id number]) [address], [address] [place] [address] CO2 [Moles/Vol] 24 mmol/L Normal 22-32 [facility] Comment on above: Performed By: #### C WINSOME GARCIA, 39829-3 #### [facility] ([id number]) [address], [address] [place] [address] Creatinine [Mass/Vol] 0.85 mg/dL Normal 0.60-1.30 [facility] Comment on above: Result Comment: METH OD TRACEABLE TO IDMS STANDARD Performed By: #### C WINSOME GARCIA, 28607-9 #### [facility] ([id number]) [address], [address] [place] [address] eGFR (CKD-EPI) NON-RACE DEPENDENT >90 Normal >59 [facility] Comment on above: Result Comment: Reported eGFR is based on the CKD-EPI 2021 equation that does not use a race coefficient. Performed By: #### C WINSOME GARCIA, 67913-1 #### [facility] ([id number]) [address], [address] [place] [address] Glucose [Mass/Vol] 121 mg/dL High 65-99 [facility] Comment on above: Performed By: #### C WINSOME GARCIA, 24776-5 #### [facility] ([id number]) [address], [address] [place] [address] Potassium [Moles/Vol] 4.4 mmol/L Normal 3.5-5.0 [facility] Comment on above: Performed By: #### C RADHA, CMP, 93511-3 #### [facility] ([id number]) [address], [address] [place] [address] Protein [Mass/Vol] 7.3 g/dL Normal 6.0-8.0 [facility] Comment on above: Performed By: #### C RADHA, CMP, 36042-0 #### [facility] ([id number]) [address], [address] [place] [address] Sodium [Moles/Vol] 135 mmol/L Normal 134-146 [facility] Comment on above: Performed By: #### Susy GARCIA, CMP, 55503-9 #### [facility] ([id number]) [address], [address] [place] [address] Urea nitrogen [Mass/Vol] 21 mg/dL Normal 5-27 [facility] Comment on above: Performed By: #### C RADHA, [facility], 86350-2 #### [facility] ([id number]) [address], [address] [place] [address] Glucose Glucometer (BldC) [M ass/Vol]on 09-25-2023 Glucose [Mass/Vol] 126 mg/dL High 65-99 [facility] Glucose [Mass/Vol] 112 mg/dL High 65-99 [facility] Glucose Poct Glucometerson 0 09-25-2023 Glucose [Mass/Vol] 130 mg/dL Normal [facility] Comment on above: Result Comment: [place] Glucose Reference Range is dependent on time and content of last meal. Glucose of more than 200 mg/dL in a nonstressed, ambulatory subject supports the diagnosis of Diabetes Mellitus. PERFORMED BY: [facility] [address] [place] [address] PATHOLOGIST [employer]AW CARRIAGE OPERATOR DENIS PARADA M.D. Performed By: #### C BC, BMP #### [facility] [address] CBC AND AUTO DIFFon 09-24-19 24 ABSOLUTE BASOPHIL 0.1 X10E9/L Normal 0.0-0.2 [facility] Comment on above: Performed By: #### C RADHA, CMP, 74579-0 #### [facility] ([id number]) [address], [address] [place] [address] ABSOLUTE NEUTROPHIL 6.2 X10E9/L Normal 1.5-6.6 [facility] Comment on above: Performed By: #### C RADHA, CMP, 09730-3 #### [facility] ([id number]) [address], [address] [place] [address] Basophils/100 WBC (Bld) 0.6 % Normal [facility] Comment on above: Performed By: #### Susy BCA, CMP, 79762-7 #### [facility] ([id number]) [address], [address] [place] [address] Eosinophils (Bld) [#/Vol] 0.3 10*3/uL Normal 0.0-0.4 [facility] Comment on above: Performed By: #### Susy BCA, CMP, 63908-3 #### [facility] ([id number]) [address], [address] [place] [address] Eosinophils/100 WBC (Bld) 3.3 % Normal [facility] Comment on above: Performed By: #### C BCA, CMP, 58711-7 #### [facility] ([id number]) [address], [address] [place] [address] Erythrocyte distribution width (RBC) [Ratio] 13.4 % Normal 11.5-15.0 [facility] Comment on above: Performed By: #### Susy BCA, CMP, 21900-4 #### [facility] ([id number]) [address], [address] [place] [address] Hematocrit (Bld) [Volume fraction] 44.1 % Normal 39-49 [facility] Comment on above: Performed By: #### Susy GARCIA, CMP, 03699-7 #### [facility] ([id number]) [address], [facility] [address] [place] [address] Hemoglobin (Bld) [Mass/Vol] 14.9 g/dL Normal 13.0-17.0 [facility] Comment on above: Performed By: #### Susy GARCIA, CMP, 72879-0 #### [facility] ([id number]) [address], [facility] [address] [place] [address] Lymphocytes (Bld) [#/Vol] 1.6 10*3/uL Normal 1.0-3.5 [facility] Comment on above: Performed By: #### Susy GARCIA, CMP, 47401-3 #### [facility] ([id number]) [address], [facility] [address] [place] [address] Lymphocytes/100 WBC (Bld) 18.2 % Normal [facility] Comment on above: Performed By: #### Susy GARCIA, CMP, 02070-1 #### [facility] ([id number]) [address], [address] [place] [address] MCH (RBC) [Entitic mass] 28.6 pg Normal 27-34 [facility] Comment on above: Performed By: #### Susy BCA, CMP, 14541-6 #### [facility] ([id number]) [address] [address] [place] [address] MCHC (RBC) [Mass/Vol] 33.7 g/dL Normal 32-36 [facility] Comment on above: Performed By: #### uSsy GARCIA, CMP, 85196-3 #### [facility] ([id number]) [address], [address] [place] [address] MCV (RBC) [Entitic vol] 85 fL Normal 80-100 [facility] Comment on above: Performed By: #### Susy GARCIA CMP, 90398-0 #### [facility] ([id number]) [address], [address] [place] [address] Monocytes (Bld) [#/Vol] 0.6 10*3/uL Normal 0-0.9 [facility] Comment on above: Performed By: #### Susy GARCIA CMP, 76729-5 #### [facility] ([id number]) [address], [address] [place] [address] Monocytes/100 WBC (Bld) 7.1 % Normal [facility] Comment on above: Performed By: #### Susy GARCIA CMP, 18903-2 #### [facility] ([id number]) [address], [address] [place] [address] Neutrophils/100 WBC (Bld) 70.8 % Normal [facility] Comment on above: Performed By: #### Susy GARCIA CMP, 85695-6 #### [facility] ([id number]) [address], [address] [place] [address] Platelet mean volume (Bld) [Entitic vol] 8.5 fL Normal 7-12 [facility] Comment on above: Performed By: #### Susy GARCIA CMP, 75168-0 #### [facility] ([id number]) [address], [address] [place] [address] Platelets (Bld) [#/Vol] 219 10*3/uL Normal 150-450 [facility] Comment on above: Performed By: #### Susy GARCIA, CMP, 63977-0 #### [facility] ([id number]) [address], [address] [place] [address] RBC COUNT 5.18 X10E12/L Normal 4.10-5.70 [facility] Comment on above: Performed By: #### C RADHA CMP, 09461-2 #### [facility] ([id number]) [address], [address] [place] [address] WBC (Bld) [#/Vol] 8.8 10*3/uL Normal 4.0-11.0 [facility] Comment on above: Performed By: #### C RADHA CMP, 19632-4 #### [facility] ([id number]) [address], [address] [place] [address] COMPREHENSIVE METABOLIC PANE [place] 09-24-2023 Albumin [Mass/Vol] 3.6 g/dL Normal 3.2-5.3 [facility] Comment on above: Performed By: #### Susy GARCIA CMP, 56355-5 #### [facility] ([id number]) [address], [address] [place] [address] ALP [Catalytic activity/Vol] 48 U/L Normal 39-130 [facility] Comment on above: Performed By: #### Susy GARCIA CMP, 27897-1 #### [facility] ([id number]) [address], [address] [place] [address] ALT [Catalytic activity/Vol] 47 U/L High 0-40 [facility] Comment on above: Performed By: #### Susy GARCIA CMP, 77779-2 #### [facility] ([id number]) [address] [place] [address] Anion gap [Moles/Vol] 8 mmol/L Normal 5-15 [facility] Comment on above: Performed By: #### C RADHA CMP, 47586-8 #### [facility] ([id number]) [address], [address] [place] [address] AST [Catalytic activity/Vol] 27 U/L Normal 0-41 [facility] Comment on above: Performed By: #### C BCA CMP, 68499-6 #### [facility] ([id number]) [address], [address] [place] [address] Bilirubin [Mass/Vol] 1.0 mg/dL Normal 0.3-1.2 [facility] Comment on above: Performed By: #### C RADHA, CMP, 80973-1 #### [facility] ([id number]) [address], [address] [place] [address] Calcium [Mass/Vol] 8.7 mg/dL Normal 8.5-10.5 [facility] Comment on above: Performed By: #### C RADHA, CMP, 15922-4 #### [facility] ([id number]) [address], [facility] [address] [place] [address] Chloride [Moles/Vol] 99 mmol/L Normal 98-109 [facility] Comment on above: Performed By: #### C RADHA CMP, 35689-8 #### [facility] ([id number]) [address], [facility] [address] [place] [address] CO2 [Moles/Vol] 27 mmol/L Normal 22-32 [facility] Comment on above: Performed By: #### C RADHA CMP, 62746-8 #### [facility] ([id number]) [address] [address] [place] [address] Creatinine [Mass/Vol] 0.84 mg/dL Normal 0.60-1.30 [facility] Comment on above: Result Comment: METH OD TRACEABLE TO IDMS STANDARD Performed By: #### C RADHA CMP, 29235-1 #### [facility] ([id number]) [address], [address] [place] [address] eGFR (CKD-EPI) NON-RACE DEPENDENT >90 Normal >59 [facility] Comment on above: Result Comment: Reported eGFR is based on the CKD-EPI 2020 equation that does not use a race coefficient. Performed By: #### C WINSOEM GARCIA, 77085-8 #### [facility] ([id number]) [address], [address] [place] [address] Glucose [Mass/Vol] 124 mg/dL High 65-99 [facility] Comment on above: Performed By: #### C WINSOME GARCIA, 38820-0 #### [facility] ([id number]) [address], [address] [place] [address] Potassium [Moles/Vol] 4.3 mmol/L Normal 3.5-5.0 [facility] Comment on above: Performed By: #### C WINSOME GARCIA, 87286-7 #### [facility] ([id number]) [address], [address] [place] [address] Protein [Mass/Vol] 6.8 g/dL Normal 6.0-8.0 [facility] Comment on above: Performed By: #### C WINSOME GARCIA, 92976-8 #### [facility] ([id number]) [address], [address] [place] [address] Sodium [Moles/Vol] 134 mmol/L Normal 134-146 [facility] Comment on above: Performed By: #### C WINSOME GARCIA, 01517-6 #### [facility] ([id number]) [address], [address] [place] [address] Urea nitrogen [Mass/Vol] 21 mg/dL Normal 5-27 [facility] Comment on above: Performed By: #### C RADHA, CMP, 17996-9 #### [facility] ([id number]) [address], [address] [place] [address] Glucose Glucometer (BldC) [M ass/Vol]on 09-24-2023 Glucose [Mass/Vol] 116 mg/dL High 65-99 [facility] Glucose [Mass/Vol] 137 mg/dL High 65-99 [facility] Glucose [Mass/Vol] 81 mg/dL Normal 65-99 [facility] Glucose [Mass/Vol] 144 mg/dL High 65-99 [facility] MAGNESIUMon 09-24-2023 Magnesium [Mass/Vol] 2.1 mg/dL Normal 1.8-2.6 [facility] Comment on above: Performed By: #### Susy GARCIA CMP, 33144-8 #### [facility] ([id number]) [address] [place] [address] Magnesium [Mass/Vol] 1.9 mg/dL Normal 1.8-2.6 [facility] Comment on above: Performed By: #### Susy GARCIA CMP, 62465-5 #### [facility] ([id number]) [address], [address] [place] [address] CBC AND AUTO DIFFon 09-23-19 ABSOLUTE BASOPHIL 0.0 X10E9/L Normal 0.0-0.2 [facility] Comment on above: Performed By: #### Susy GARCIA CMP, 71051-8 ####[facility] ([id number])[address], [place] [address] ABSOLUTE NEUTROPHIL 6.0 X10E9/L Normal 1.5-6.6 [facility] Comment on above: Performed By: #### Susy GARCIA CMP, 81737-7 ####[facility] ([id number])[address], [place] [address] Basophils/100 WBC (Bld) 0.5 % Normal [facility] Comment on above: Performed By: #### Susy GARCIA CMP, 58636-5 ####[facility] ([id number])[address], [place] [address] Eosinophils (Bld) [#/Vol] 0.3 10*3/uL Normal 0.0-0.4 [facility] Comment on above: Performed By: #### C RADHA, CMP, ####[facility] ([id number])[address], [place] [address] Eosinophils/100 WBC (Bld) 2.9 % Normal [facility] Comment on above: Performed By: #### Susy GARCIA, CMP, ####[facility] ([id number])[address], [place] [address] Erythrocyte distribution width (RBC) [Ratio] 13.8 % Normal 11.5-15.0 [facility] Comment on above: Performed By: #### Susy GARCIA, CMP, ####[facility] ([id number])[address] [address], [place] [address] Hematocrit (Bld) [Volume fraction] 43.9 % Normal 39-49 [facility] Comment on above: Performed By: #### Susy GARCIA, CMP, ####[facility] ([id number])[address] [address], [place] [address] Hemoglobin (Bld) [Mass/Vol] 14.8 g/dL Normal 13.0-17.0 [facility] Comment on above: Performed By: #### Susy GARCIA, CMP, ####[facility] ([id number])[address] [address], [place] [address] Lymphocytes (Bld) [#/Vol] 1.7 10*3/uL Normal 1.0-3.5 [facility] Comment on above: Performed By: #### C RADHA, CMP, ####[facility] ([id number])[address] [address] [address] Lymphocytes/100 WBC (Bld) 19.4 % Normal [facility] Comment on above: Performed By: #### Susy BCA, CMP, ####[facility] ([id number])[address] [place] [address] MCH (RBC) [Entitic mass] 28.7 pg Normal 27-34 [facility] Comment on above: Performed By: #### C RADHA, CMP, ####[facility] ([id number])[address], [address] [place] [address] MCHC (RBC) [Mass/Vol] 33.8 g/dL Normal 32-36 [facility] Comment on above: Performed By: #### C RADHA, CMP, ####[facility] ([id number])[address] [place] [address] MCV (RBC) [Entitic vol] 85 fL Normal 80-100 [facility] Comment on above: Performed By: #### Susy GARCIA, CMP, ####[facility] ([id number])[address], [place] [address] Monocytes (Bld) [#/Vol] 0.8 10*3/uL Normal 0-0.9 [facility] Comment on above: Performed By: #### C RADHA, CMP, ####[facility] ([id number])[address] [address], [place] [address] Monocytes/100 WBC (Bld) 9.1 % Normal [facility] Comment on above: Performed By: #### Susy BCA, CMP, ####[facility] ([id number])[address] [place] [address] Neutrophils/100 WBC (Bld) 68.1 % Normal [facility] Comment on above: Performed By: #### Susy BCA, CMP, ####[facility] ([id number])[address] [place] [address] Platelet mean volume (Bld) [Entitic vol] 8.7 fL Normal 7-12 [facility] Comment on above: Performed By: #### C BCA, CMP, 66040-1 ####[facility] ([id number])[address], [place] [address] Platelets (Bld) [#/Vol] 214 10*3/uL Normal 150-450 [facility] Comment on above: Performed By: #### C BCA, CMP, 29945-9 ####[facility] ([id number])[address], [place] [address] RBC COUNT 5.17 X10E12/L Normal 4.10-5.70 [facility] Comment on above: Performed By: #### C BCA, CMP, 56248-0 ####[facility] ([id number])[address] [address] [place] [address] WBC (Bld) [#/Vol] 8.8 10*3/uL Normal 4.0-11.0 [facility] Comment on above: Performed By: #### C BCA, CMP, 74675-9 ####[facility] ([id number])[address], [place] [address] COMPREHENSIVE METABOLIC PANE [place] 09-23-2023 Albumin [Mass/Vol] 3.7 g/dL Normal 3.2-5.3 [facility] Comment on above: Performed By: #### C BCA, CMP, 65462-1 #### [facility] ([id number]) [address], [address] [place] [address] ALP [Catalytic activity/Vol] 45 U/L Normal 39-130 [facility] Comment on above: Performed By: #### C BCA, CMP, 33532-8 #### [facility] ([id number]) [address], [address] [place] [address] ALT [Catalytic activity/Vol] 54 U/L High 0-40 [facility] Comment on above: Performed By: #### C RADHA CMP, 49045-9 #### [facility] ([id number]) [address], [address] [place] [address] Anion gap [Moles/Vol] 10 mmol/L Normal 5-15 [facility] Comment on above: Performed By: #### C RADHA CMP, 59751-2 #### [facility] ([id number]) [address], [address] [place] [address] AST [Catalytic activity/Vol] 34 U/L Normal 0-41 [facility] Comment on above: Performed By: #### C RADHA CMP, 53468-0 #### [facility] ([id number]) [address], [address] [place] [address] Bilirubin [Mass/Vol] 1.0 mg/dL Normal 0.3-1.2 [facility] Comment on above: Performed By: #### Susy GARCIA CMP, 09016-3 #### [facility] ([id number]) [address], [address] [place] [address] Calcium [Mass/Vol] 8.7 mg/dL Normal 8.5-10.5 [facility] Comment on above: Performed By: #### C RADHA CMP, 33338-9 #### [facility] ([id number]) [address], [address] [place] [address] Chloride [Moles/Vol] 101 mmol/L Normal 98-109 [facility] Comment on above: Performed By: #### C BCA, CMP, 95729-0 #### [facility] ([id number]) [address], [address] [place] [address] CO2 [Moles/Vol] 27 mmol/L Normal 22-32 [facility] Comment on above: Performed By: #### C BCA, CMP, 86287-9 #### [facility] ([id number]) [address], [address] [place] [address] Creatinine [Mass/Vol] 0.86 mg/dL Normal 0.60-1.30 [facility] Comment on above: Result Comment: METH OD TRACEABLE TO IDMS STANDARD Performed By: #### C WINSOME GARCIA, 56878-5 #### [facility] ([id number]) [address], [address] [place] [address] GFR/1.73 sq M.predicted among non-blacks MDRD (S/P/Bld) [Vol rate/Area] 90 mL/min/{1.73_m2} Normal >59 [facility] Comment on above: Result Comment: Reported eGFR is based on the CKD-EPI 2020 equation that does not use a race coefficient. Performed By: #### C WINSOME GARCIA, 53614-2 #### [facility] ([id number]) [address] [address] [place] [address] Glucose [Mass/Vol] 122 mg/dL High 65-99 [facility] Comment on above: Performed By: #### C WINSOME GARCIA, 50023-2 #### [facility] ([id number]) [address] [address] [place] [address] Potassium [Moles/Vol] 4.1 mmol/L Normal 3.5-5.0 [facility] Comment on above: Performed By: #### C WINSOME GARCIA, 61145-7 #### [facility] ([id number]) [address] [address] [place] [address] Protein [Mass/Vol] 6.8 g/dL Normal 6.0-8.0 [facility] Comment on above: Performed By: #### C WINSOME GARCIA, 45502-4 #### [facility] ([id number]) [address] [address] [place] [address] Sodium [Moles/Vol] 138 mmol/L Normal 134-146 [facility] Comment on above: Performed By: #### C WINSOME GARCIA, 10480-7 #### [facility] ([id number]) [address], [address] [place] [address] Urea nitrogen [Mass/Vol] 23 mg/dL Normal 5-27 [facility] Comment on above: Performed By: #### Susy GARCIA CMP, 56937-5 #### [facility] ([id number]) [address], [address] [place] [address] MAGNESIUMon 09-23-2023 Magnesium [Mass/Vol] 1.8 mg/dL Normal 1.8-2.6 [facility] Comment on above: Performed By: #### Susy GARCIA CMP, 45345-4 #### [facility] ([id number]) [address], [address] [place] [address] CBC AND AUTO DIFFon 09-22-19 ABSOLUTE BASOPHIL 0.1 X10E9/L Normal 0.0-0.2 [facility] Comment on above: Performed By: #### Susy GARCIA CMP, 82781-9 ####[facility] ([id number])[address], [address], [place] [address] ABSOLUTE NEUTROPHIL 7.2 X10E9/L High 1.5-6.6 [facility] Comment on above: Performed By: #### Susy GARCIA CMP, 11577-0 ####[facility] ([id number])[address], [address], [place] [address] Basophils/100 WBC (Bld) 0.5 % Normal [facility] Comment on above: Performed By: #### Susy GARCIA CMP, 00932-9 ####[facility] ([id number])[address], [address], [place] [address] Eosinophils (Bld) [#/Vol] 0.2 10*3/uL Normal 0.0-0.4 [facility] Comment on above: Performed By: #### C WINSOME GARCIA, ####[facility] ([id number])[address], [address], [place] [address] Eosinophils/100 WBC (Bld) 1.8 % Normal [facility] Comment on above: Performed By: #### C WINSOME GARCIA, ####[facility] ([id number])[address] [address] [place] [address] Erythrocyte distribution width (RBC) [Ratio] 13.9 % Normal 11.5-15.0 [facility] Comment on above: Performed By: #### Susy GARCIA CMP, ####[facility] ([id number])[address], [address] [place] [address] Hematocrit (Bld) [Volume fraction] 43.8 % Normal 39-49 [facility] Comment on above: Performed By: #### Susy GARCIA CMP, ####[facility] ([id number])[address], [address], [place] [address] Hemoglobin (Bld) [Mass/Vol] 15.0 g/dL Normal 13.0-17.0 [facility] Comment on above: Performed By: #### Susy GARCIA CMP, ####[facility] ([id number])[address] [address] [place] [address] Lymphocytes (Bld) [#/Vol] 1.6 10*3/uL Normal 1.0-3.5 [facility] Comment on above: Performed By: #### Susy GARCIA, CMP, ####[facility] ([id number])[address], [address], [place] [address] Lymphocytes/100 WBC (Bld) 15.7 % Normal [facility] Comment on above: Performed By: #### C RADHA, CMP, ####[facility] ([id number])[address] [place] [address] MCH (RBC) [Entitic mass] 29.1 pg Normal 27-34 [facility] Comment on above: Performed By: #### C RADHA, CMP, ####[facility] ([id number])[address] [place] [address] MCHC (RBC) [Mass/Vol] 34.1 g/dL Normal 32-36 [facility] Comment on above: Performed By: #### C RADHA, CMP, ####[facility] ([id number])[address], [address], [place] [address] MCV (RBC) [Entitic vol] 85 fL Normal 80-100 [facility] Comment on above: Performed By: #### Susy GARCIA, CMP, ####[facility] ([id number])[address], [place] [address] Monocytes (Bld) [#/Vol] 1.0 10*3/uL High 0-0.9 [facility] Comment on above: Performed By: #### Susy GARCIA, CMP, ####[facility] ([id number])[address], [address], [place] [address] Monocytes/100 WBC (Bld) 10.1 % Normal [facility] Comment on above: Performed By: #### Susy GARCIA, CMP, ####[facility] ([id number])[address], [address], [place] [address] Neutrophils/100 WBC (Bld) 71.9 % Normal [facility] Comment on above: Performed By: #### Susy BCA, CMP, ####[facility] ([id number])[address], [address], [place] [address] Platelet mean volume (Bld) [Entitic vol] 8.5 fL Normal 7-12 [facility] Comment on above: Performed By: #### C BCA, CMP, 08205-9 ####[facility] ([id number])[address] [address], [place] [address] Platelets (Bld) [#/Vol] 239 10*3/uL Normal 150-450 [facility] Comment on above: Performed By: #### C BCA, CMP, 47034-2 ####[facility] ([id number])[address], [place] [address] RBC COUNT 5.15 X10E12/L Normal 4.10-5.70 [facility] Comment on above: Performed By: #### C BCA, CMP, ####[facility] ([id number])[address] [address] [place] [address] WBC (Bld) [#/Vol] 10.0 10*3/uL Normal 4.0-11.0 [facility] Comment on above: Performed By: #### C BCA, CMP, ####[facility] ([id number])[address] [address] [place] [address] COMPREHENSIVE METABOLIC PANE [place] 09-22-2023 Albumin [Mass/Vol] 3.8 g/dL Normal 3.2-5.3 [facility] Comment on above: Performed By: #### C BCA, CMP, ####[facility] ([id number])[address] [address] [place] [address] ALP [Catalytic activity/Vol] 49 U/L Normal 39-130 [facility] Comment on above: Performed By: #### C BCA, CMP, ####[facility] ([id number])[address], [address], [place] [address] ALT [Catalytic activity/Vol] 60 U/L High 0-40 [facility] Comment on above: Performed By: #### C BCA, CMP, 05860-1 ####[facility] ([id number])[address], [place] [address] Anion gap [Moles/Vol] 8 mmol/L Normal 5-15 [facility] Comment on above: Performed By: #### C RADHA, CMP, ####[facility] ([id number])[address], [address], [place] [address] AST [Catalytic activity/Vol] 51 U/L High 0-41 [facility] Comment on above: Performed By: #### Susy GARCIA, CMP, ####[facility] ([id number])[address], [place] [address] Bilirubin [Mass/Vol] 0.7 mg/dL Normal 0.3-1.2 [facility] Comment on above: Performed By: #### Susy GARCIA, CMP, ####[facility] ([id number])[address], [place] [address] Calcium [Mass/Vol] 8.8 mg/dL Normal 8.5-10.5 [facility] Comment on above: Performed By: #### Susy GARCIA, CMP, ####[facility] ([id number])[address], [address], [place] [address] Chloride [Moles/Vol] 99 mmol/L Normal 98-109 [facility] Comment on above: Performed By: #### C BCA, CMP, ####[facility] ([id number])[address], [address], [place] [address] CO2 [Moles/Vol] 31 mmol/L Normal 22-32 [facility] Comment on above: Performed By: #### C BCA, CMP, 49087-5 ####[facility] ([id number])[address], [address], [place] [address] Creatinine [Mass/Vol] 1.02 mg/dL Normal 0.60-1.30 [facility] Comment on above: Result Comment: METH OD TRACEABLE TO IDMS STANDARD Performed By: #### C RADHA CMP, 60849-3 ####[facility] ([id number])[address], [address], [place] [address] GFR/1.73 sq M.predicted among non-blacks MDRD (S/P/Bld) [Vol rate/Area] 76 mL/min/{1.73_m2} Normal >59 [facility] Comment on above: Result Comment: Reported eGFR is based on the CKD-EPI 2020 equation that does not use a race coefficient. Performed By: #### C BCA, CMP, 38402-7 ####[facility] ([id number])[address] [address], [place] [address] Glucose [Mass/Vol] 127 mg/dL High 65-99 [facility] Comment on above: Performed By: #### C BCA, CMP, 75860-1 ####[facility] ([id number])[address] [address], [place] [address] Potassium [Moles/Vol] 4.3 mmol/L Normal 3.5-5.0 [facility] Comment on above: Performed By: #### C BCA, CMP, 75337-4 ####[facility] ([id number])[address] [address] [place] [address] Protein [Mass/Vol] 7.0 g/dL Normal 6.0-8.0 [facility] Comment on above: Performed By: #### C BCA, CMP, ####[facility] ([id number])[address], [place] [address] Sodium [Moles/Vol] 138 mmol/L Normal 134-146 [facility] Comment on above: Performed By: #### Susy GARCIA CMP, 17640-3 ####[facility] ([id number])[address], [place] [address] Urea nitrogen [Mass/Vol] 30 mg/dL High 5-27 [facility] Comment on above: Performed By: #### Susy GARCIA CMP, 42750-2 ####[facility] ([id number])[address], [address] [place] [address] Glucose Glucometer (BldC) [M ass/Vol]on 09-22-2023 Glucose [Mass/Vol] 119 mg/dL High 65-99 [facility] Glucose [Mass/Vol] 140 mg/dL High 65-99 [facility] MAGNESIUMon 09-22-2023 Magnesium [Mass/Vol] 2.0 mg/dL Normal 1.8-2.6 [facility] Comment on above: Performed By: #### Susy GARCIA CMP, ####[facility] ([id number])[address] [address] [place] [address] CBC AND AUTO DIFFon 09-21-19 24 ABSOLUTE BASOPHIL 0.0 X10E9/L Normal 0.0-0.2 [facility] Comment on above: Performed By: #### Susy GARCIA CMP, #### [facility] ([id number]) [address] [place] [address] ABSOLUTE NEUTROPHIL 8.1 X10E9/L High 1.5-6.6 [facility] Comment on above: Performed By: #### Susy GARCIA CMP, #### [facility] ([id number]) [address] [place] [address] Basophils/100 WBC (Bld) 0.4 % Normal [facility] Comment on above: Performed By: #### Susy GARCIA CMP, #### [facility] ([id number]) [address] [address] [place] [address] Eosinophils (Bld) [#/Vol] 0.0 10*3/uL Normal 0.0-0.4 [facility] Comment on above: Performed By: #### Susy GARCIA CMP, #### [facility] ([id number]) [address], [facility] [address] [place] [address] Eosinophils/100 WBC (Bld) 0.5 % Normal [facility] Comment on above: Performed By: #### Susy GARCIA CMP, #### [facility] ([id number]) [address], [facility] [address] [place] [address] Erythrocyte distribution width (RBC) [Ratio] 13.9 % Normal 11.5-15.0 [facility] Comment on above: Performed By: #### Susy GARCIA CMP, #### [facility] ([id number]) [address] [address] [place] [address] Hematocrit (Bld) [Volume fraction] 43.5 % Normal 39-49 [facility] Comment on above: Performed By: #### Susy GARCIA CMP, #### [facility] ([id number]) [address], [facility] [address] [place] [address] Hemoglobin (Bld) [Mass/Vol] 14.7 g/dL Normal 13.0-17.0 [facility] Comment on above: Performed By: #### Susy GARCIA CMP, #### [facility] ([id number]) [address], [facility] [address] [place] [address] Lymphocytes (Bld) [#/Vol] 1.8 10*3/uL Normal 1.0-3.5 [facility] Comment on above: Performed By: #### C RADHA, CMP, #### [facility] ([id number]) [address], [address] [place] [address] Lymphocytes/100 WBC (Bld) 16.6 % Normal [facility] Comment on above: Performed By: #### C RADHA, CMP, #### [facility] ([id number]) [address] [place] [address] MCH (RBC) [Entitic mass] 28.6 pg Normal 27-34 [facility] Comment on above: Performed By: #### C RADHA, CMP, #### [facility] ([id number]) [address] [place] [address] MCHC (RBC) [Mass/Vol] 33.8 g/dL Normal 32-36 [facility] Comment on above: Performed By: #### C RADHA, CMP, #### [facility] ([id number]) [address] [place] [address] MCV (RBC) [Entitic vol] 85 fL Normal 80-100 [facility] Comment on above: Performed By: #### Susy BCA, CMP, #### [facility] ([id number]) [address] [place] [address] Monocytes (Bld) [#/Vol] 0.9 10*3/uL Normal 0-0.9 [facility] Comment on above: Performed By: #### C BCA, CMP, #### [facility] ([id number]) [address] [place] [address] Monocytes/100 WBC (Bld) 7.9 % Normal [facility] Comment on above: Performed By: #### C BCA, CMP, #### [facility] ([id number]) [address], [address] [place] [address] Neutrophils/100 WBC (Bld) 74.6 % Normal [facility] Comment on above: Performed By: #### C BCA, CMP, 37852-5 #### [facility] ([id number]) [address] [place] [address] Platelet mean volume (Bld) [Entitic vol] 8.3 fL Normal 7-12 [facility] Comment on above: Performed By: #### C BCA, CMP, 42835-3 #### [facility] ([id number]) [address] [place] [address] Platelets (Bld) [#/Vol] 235 10*3/uL Normal 150-450 [facility] Comment on above: Performed By: #### Susy BCA, CMP, 75681-1 #### [facility] ([id number]) [address] [place] [address] RBC COUNT 5.15 X10E12/L Normal 4.10-5.70 [facility] Comment on above: Performed By: #### C BCA, CMP, 95392-1 #### [facility] ([id number]) [address], [address] [place] [address] WBC (Bld) [#/Vol] 10.8 10*3/uL Normal 4.0-11.0 [facility] Comment on above: Performed By: #### C BCA, CMP, #### [facility] ([id number]) [address], [address] [place] [address] COMPREHENSIVE METABOLIC PANE [place] 09-21-2023 Albumin [Mass/Vol] 4.0 g/dL Normal 3.2-5.3 [facility] Comment on above: Performed By: #### C BCA, CMP, #### [facility] ([id number]) [address] [place] [address] ALP [Catalytic activity/Vol] 48 U/L Normal 39-130 [facility] Comment on above: Performed By: #### C BCA, CMP, 89544-8 #### [facility] ([id number]) [address] [place] [address] ALT [Catalytic activity/Vol] 36 U/L Normal 0-40 [facility] Comment on above: Performed By: #### C BCA, CMP, #### [facility] ([id number]) [address] [place] [address] Anion gap [Moles/Vol] 11 mmol/L Normal 5-15 [facility] Comment on above: Performed By: #### C BCA, CMP, #### [facility] ([id number]) [address] [place] [address] AST [Catalytic activity/Vol] 37 U/L Normal 0-41 [facility] Comment on above: Performed By: #### C BCA, CMP, #### [facility] ([id number]) [address] [place] [address] Bilirubin [Mass/Vol] 1.0 mg/dL Normal 0.3-1.2 [facility] Comment on above: Performed By: #### C BCA, CMP, #### [facility] ([id number]) [address] [place] [address] Calcium [Mass/Vol] 8.8 mg/dL Normal 8.5-10.5 [facility] Comment on above: Performed By: #### C BCA, CMP, #### [facility] ([id number]) [address] [place] [address] Chloride [Moles/Vol] 99 mmol/L Normal 98-109 [facility] Comment on above: Performed By: #### C WINSOME GARCIA, 22580-4 #### [facility] ([id number]) [address] [place] [address] CO2 [Moles/Vol] 29 mmol/L Normal 22-32 [facility] Comment on above: Performed By: #### C WINSOME GARCIA, #### [facility] ([id number]) [address] [place] [address] Creatinine [Mass/Vol] 0.99 mg/dL Normal 0.60-1.30 [facility] Comment on above: Result Comment: METH OD TRACEABLE TO IDMS STANDARD Performed By: #### C WINSOME GARCIA, #### [facility] ([id number]) [address], [facility] [address] [place] [address] GFR/1.73 sq M.predicted among non-blacks MDRD (S/P/Bld) [Vol rate/Area] 79 mL/min/{1.73_m2} Normal >59 [facility] Comment on above: Result Comment: Reported eGFR is based on the CKD-EPI 2020 equation that does not use a race coefficient. Performed By: #### C WINSOME GARCIA, #### [facility] ([id number]) [address] [place] [address] Glucose [Mass/Vol] 127 mg/dL High 65-99 [facility] Comment on above: Performed By: #### C WINSOME GARCIA, 91134-2 #### [facility] ([id number]) [address] [address] [place] [address] Potassium [Moles/Vol] 3.8 mmol/L Normal 3.5-5.0 [facility] Comment on above: Performed By: #### C RADHA CMP, #### [facility] ([id number]) [address] [place] [address] Protein [Mass/Vol] 7.2 g/dL Normal 6.0-8.0 [facility] Comment on above: Performed By: #### C RADHA CMP, 74106-9 #### [facility] ([id number]) [address] [address] [place] [address] Sodium [Moles/Vol] 139 mmol/L Normal 134-146 [facility] Comment on above: Performed By: #### C BCA, CMP, 32639-7 #### [facility] ([id number]) [address] [address] [place] [address] Urea nitrogen [Mass/Vol] 34 mg/dL High 5-27 [facility] Comment on above: Performed By: #### Susy BCA, CMP, 01439-8 #### [facility] ([id number]) [address] [place] [address] HGB A1C (GLYCO-HGB)on 2023 Glucose [Mass/Vol] 137 mg/dL Normal [facility] Comment on above: Performed By: #### Susy BCA, CMP, 76013-4 ####[facility] ([id number])[address] [address], [place] [address] HbA1c (Bld) [Mass fraction] 6.4 % High 4.4-5.6 [facility] Comment on above: Result Comment: NOTE ADA Guidelines Result HgbA1c Normal : less than 5.7 % Prediabetes : 5.7 % to 6.4 % Diabetes : > 6.4 % Use with caution in patients with abnormal hemoglobin variants as the half-life of red blood cells and in vivo glycation rates are affected. Performed By: #### C BCA, CMP, 92279-5 ####[facility] ([id number])[address], [address] [place] [address] MAGNESIUMon 09-21-2023 Magnesium [Mass/Vol] 2.3 mg/dL Normal 1.8-2.6 [facility] Comment on above: Performed By: #### 1 9123-9 ####[facility] ([id number])[address], [address], [place] [address] Magnesium [Mass/Vol] 1.8 mg/dL Normal 1.8-2.6 [facility] Comment on above: Performed By: #### C BCA, CMP, 66233-3 ####[facility] ([id number])[address], [address], [place] [address] URINALYSISon 09-21-2023 Bilirubin Ql (U) Negative Normal NEG [facility] Comment on above: Performed By: #### U A ####[facility] ([id number])[address], [address] [place] [address] BLOOD/HGB Negative Normal NEG [facility] Comment on above: Performed By: #### U A ####[facility] ([id number])[address] [address] [address] Color (U) YELLOW Normal YELLOW [facility] Comment on above: Performed By: #### U A ####[facility] ([id number])[address] [place] [address] Glucose Ql (U) Negative Normal NEG [facility] Comment on above: Performed By: #### U A ####[facility] ([id number])[address], [address], [place] [address] Ketones Ql (U) Negative Normal NEG [facility] Comment on above: Performed By: #### U A ####[facility] ([id number])[address] [place] [address] Leukocyte esterase Test strip Ql (U) Negative Normal NEG [facility] Comment on above: Performed By: #### U A ####[facility] ([id number])[address], [address] [place] [address] MUCOUS PRESENT Abnormal NONE [facility] Comment on above: Performed By: #### U A ####[facility] ([id number])[address], [address] [place] [address] Nitrite Ql (U) Negative Normal NEG [facility] Comment on above: Performed By: #### U A ####[facility] ([id number])[address], [address] [place] [address] pH (U) 6.0 [pH] Normal 5.0-8.5 [facility] Comment on above: Performed By: #### U A ####[facility] ([id number])[address], [address] [place] [address] Protein Ql (U) Trace Abnormal NEG [facility] Comment on above: Performed By: #### U A ####[facility] ([id number])[address], [address] [place] [address] R.B.CELLS 3 /hpf Normal 0-5 [facility] Comment on above: Performed By: #### U A ####[facility] ([id number])[address], [address] [place] [address] Specific gravity (U) [Rel density] 1.023 Normal 1.003-1.03 5 [facility] Comment on above: Performed By: #### U A ####[facility] ([id number])[address] [address] [place] [address] TURBIDITY CLEAR Normal CLEAR [facility] Comment on above: Performed By: #### U A ####[facility] ([id number])[address] [address] Urinalysis dipstick W Reflex Microscopic panel (U) URINE RECEIVED WITHOUT PRESERVATIVE-DELAYS IN TRANSPORT MAY AFFECT RESULTS.INTERPRET WITH CAUTION AND CLINICAL CORRELATION IS RECOMMENDED. Normal [facility] Comment on above: Performed By: #### U A ####[facility] ([id number])[address] [address] Urobilinogen (U) [Mass/Vol] mg/dL Normal <1.1 [facility] Comment on above: Performed By: #### U A ####[facility] ([id number])[address] [address] W.B.CELLS 2 /hpf Normal 0-5 [facility] Comment on above: Performed By: #### U A ####[facility] ([id number])[address] [address] CBC AND AUTO DIFFon 09-20-19 24 ABSOLUTE BASOPHIL 0.1 X10E9/L Normal 0.0-0.2 [facility] Comment on above: Performed By: #### C RADHA CMP, 94529-6 #### [facility] ([id number]) [address] [address] ABSOLUTE NEUTROPHIL 11.3 X10E9/L High 1.5-6.6 [facility] Comment on above: Performed By: #### C RADHA, CMP, 27703-8 #### [facility] ([id number]) [address] [address] Basophils/100 WBC (Bld) 0.5 % Normal [facility] Comment on above: Performed By: #### C RADHA, CMP, 52520-7 #### [facility] ([id number]) [address] [address] Eosinophils (Bld) [#/Vol] 0.0 10*3/uL Normal 0.0-0.4 [facility] Comment on above: Performed By: #### Susy GARCIA CMP, 11269-3 #### [facility] ([id number]) [address], [address] [place] [address] Eosinophils/100 WBC (Bld) 0.0 % Normal [facility] Comment on above: Performed By: #### Susy GARCIA CMP, 44696-1 #### [facility] ([id number]) [address] [address] [place] [address] Erythrocyte distribution width (RBC) [Ratio] 13.8 % Normal 11.5-15.0 [facility] Comment on above: Performed By: #### Susy GARCIA CMP, 66023-9 #### [facility] ([id number]) [address], [facility] [address] [place] [address] Hematocrit (Bld) [Volume fraction] 45.3 % Normal 39-49 [facility] Comment on above: Performed By: #### Susy GARCIA CMP, 44852-7 #### [facility] ([id number]) [address], [address] [place] [address] Hemoglobin (Bld) [Mass/Vol] 15.3 g/dL Normal 13.0-17.0 [facility] Comment on above: Performed By: #### Susy GARCIA CMP, 28884-5 #### [facility] ([id number]) [address], [facility] [address] [place] [address] Lymphocytes (Bld) [#/Vol] 0.5 10*3/uL Low 1.0-3.5 [facility] Comment on above: Performed By: #### Susy GARCIA CMP, 53460-5 #### [facility] ([id number]) [address], [address] [place] [address] Lymphocytes/100 WBC (Bld) 4.2 % Normal [facility] Comment on above: Performed By: #### C RADHA CMP, 01372-3 #### [facility] ([id number]) [address], [address] [place] [address] MCH (RBC) [Entitic mass] 28.5 pg Normal 27-34 [facility] Comment on above: Performed By: #### Susy GARCIA CMP, 21788-9 #### [facility] ([id number]) [address], [address] [place] [address] MCHC (RBC) [Mass/Vol] 33.7 g/dL Normal 32-36 [facility] Comment on above: Performed By: #### Susy GARCIA CMP, 94346-5 #### [facility] ([id number]) [address], [address] [place] [address] MCV (RBC) [Entitic vol] 85 fL Normal 80-100 [facility] Comment on above: Performed By: #### Susy GARCIA CMP, 61467-1 #### [facility] ([id number]) [address], [address] [place] [address] Monocytes (Bld) [#/Vol] 0.4 10*3/uL Normal 0-0.9 [facility] Comment on above: Performed By: #### Susy GARCIA CMP, 68338-7 #### [facility] ([id number]) [address], [address] [place] [address] Monocytes/100 WBC (Bld) 3.0 % Normal [facility] Comment on above: Performed By: #### Susy GARCIA CMP, 34941-0 #### [facility] ([id number]) [address], [address] [place] [address] Neutrophils/100 WBC (Bld) 92.3 % Normal [facility] Comment on above: Performed By: #### Susy GARCIA, CMP, 02542-3 #### [facility] ([id number]) [address], [address] [place] [address] Platelet mean volume (Bld) [Entitic vol] 8.2 fL Normal 7-12 [facility] Comment on above: Performed By: #### C RADHA, CMP, 21106-0 #### [facility] ([id number]) [address], [address] [place] [address] Platelets (Bld) [#/Vol] 262 10*3/uL Normal 150-450 [facility] Comment on above: Performed By: #### Susy GARCIA, CMP, 50619-3 #### [facility] ([id number]) [address], [address] [place] [address] RBC COUNT 5.35 X10E12/L Normal 4.10-5.70 [facility] Comment on above: Performed By: #### Susy GARCIA, CMP, 54088-3 #### [facility] ([id number]) [address], [address] [place] [address] WBC (Bld) [#/Vol] 12.2 10*3/uL High 4.0-11.0 [facility] Comment on above: Performed By: #### Susy BCA, CMP, 90482-5 #### [facility] ([id number]) [address], [address] [place] [address] COMPREHENSIVE METABOLIC PANE [place] 09-20-2023 Albumin [Mass/Vol] 4.1 g/dL Normal 3.2-5.3 [facility] Comment on above: Performed By: #### C BCA, CMP, 08239-8 #### [facility] ([id number]) [address], [address] [place] [address] ALP [Catalytic activity/Vol] 46 U/L Normal 39-130 [facility] Comment on above: Performed By: #### Susy BCA, CMP, 24707-3 #### [facility] ([id number]) [address] [place] [address] ALT [Catalytic activity/Vol] 16 U/L Normal 0-40 [facility] Comment on above: Performed By: #### C BCA, CMP, 41183-5 #### [facility] ([id number]) [address], [address] [place] [address] Anion gap [Moles/Vol] 10 mmol/L Normal 5-15 [facility] Comment on above: Performed By: #### C BCA, CMP, 36395-6 #### [facility] ([id number]) [address], [address] [place] [address] AST [Catalytic activity/Vol] 21 U/L Normal 0-41 [facility] Comment on above: Performed By: #### C BCA, CMP, 26535-7 #### [facility] ([id number]) [address] [place] [address] Bilirubin [Mass/Vol] 0.8 mg/dL Normal 0.3-1.2 [facility] Comment on above: Performed By: #### C BCA, CMP, 85070-6 #### [facility] ([id number]) [address], [address] [place] [address] Calcium [Mass/Vol] 9.4 mg/dL Normal 8.5-10.5 [facility] Comment on above: Performed By: #### C BCA, CMP, 57440-1 #### [facility] ([id number]) [address], [address] [place] [address] Chloride [Moles/Vol] 101 mmol/L Normal 98-109 [facility] Comment on above: Performed By: #### C BCA, CMP, 34648-1 #### [facility] ([id number]) [address], [address] [place] [address] CO2 [Moles/Vol] 28 mmol/L Normal 22-32 [facility] Comment on above: Performed By: #### C WINSOME GARCIA, 11873-3 #### [facility] ([id number]) [address], [address] [place] [address] Creatinine [Mass/Vol] 1.03 mg/dL Normal 0.60-1.30 [facility] Comment on above: Result Comment: METH OD TRACEABLE TO IDMS STANDARD Performed By: #### C WINSOME GARCIA, 54068-7 #### [facility] ([id number]) [address], [facility] [address] [place] [address] GFR/1.73 sq M.predicted among non-blacks MDRD (S/P/Bld) [Vol rate/Area] 75 mL/min/{1.73_m2} Normal >59 [facility] Comment on above: Result Comment: Reported eGFR is based on the CKD-EPI 2020 equation that does not use a race coefficient. Performed By: #### C WINSOME GARCIA, 63601-2 #### [facility] ([id number]) [address], [address] [place] [address] Glucose [Mass/Vol] 156 mg/dL High 65-99 [facility] Comment on above: Performed By: #### C WINSOME GARCIA, 95542-5 #### [facility] ([id number]) [address], [address] [place] [address] Potassium [Moles/Vol] 4.5 mmol/L Normal 3.5-5.0 [facility] Comment on above: Performed By: #### C WINSOME GARCIA, 96259-0 #### [facility] ([id number]) [address], [address] [place] [address] Protein [Mass/Vol] 7.4 g/dL Normal 6.0-8.0 [facility] Comment on above: Performed By: #### C WINSOME GARCIA, 73206-1 #### [facility] ([id number]) [address], [address] [place] [address] Sodium [Moles/Vol] 139 mmol/L Normal 134-146 [facility] Comment on above: Performed By: #### Susy GARCIA CMP, 43681-5 #### [facility] ([id number]) [address], [address] [place] [address] Urea nitrogen [Mass/Vol] 28 mg/dL High 5-27 [facility] Comment on above: Performed By: #### C RADHA, WINSOME, 06294-3 #### [facility] ([id number]) [address], [address] [place] [address] Glucose Glucometer (BldC) [M ass/Vol]on 09-20-2023 Glucose [Mass/Vol] 150 mg/dL High 65-99 [facility] Glucose [Mass/Vol] 208 mg/dL High 65-99 [facility] Lipid 1996 panelon Cholesterol [Mass/Vol] 183 mg/dL Normal 150-200 [facility] Comment on above: Performed By: #### C WINSOME GARCIA, 17059-6 #### [facility] ([id number]) [address] [place] [address] Cholesterol in HDL [Mass/Vol] 36 mg/dL Low >39 [facility] Comment on above: Result Comment: HDL <40 mg/dL - High Risk HDL > or = 40mg/dL- Desirable HDL >60 mg/dL - Negative Risk Performed By: #### C RADHA, CMP, 40594-7 #### [facility] ([id number]) [address], [address] [place] [address] Cholesterol in LDL [Mass/Vol] 123 mg/dL Normal <130 [facility] Comment on above: Result Comment: LDL <100 mg/dL - Desirable LDL >160 mg/dL - High Risk Performed By: #### C RADHA, CMP, 54950-5 #### [facility] ([id number]) [address], [address] [place] [address] Cholesterol in VLDL [Mass/Vol] 24 mg/dL Normal 0-30 [facility] Comment on above: Performed By: #### C RADHA, CMP, 85693-5 #### [facility] ([id number]) [address], [address] [place] [address] CHOLESTEROL:HDL 5.1 High 1.0-5.0 [facility] Comment on above: Performed By: #### Susy GARCIA, CMP, 83144-8 #### [facility] ([id number]) [address], [address] [place] [address] Triglyceride [Mass/Vol] 122 mg/dL Normal 27-150 [facility] Comment on above: Performed By: #### C RADHA, CMP, 88935-1 #### [facility] ([id number]) [address], [facility] [address] [place] [address] MR BRAIN W WO CONTon 024 MR [...] Pryor MD on 09/20/2023 5:10 AM Normal [facility] PROTIME AND INRon 09-20-2023 INR Coag (PPP) [Relative time] 1.1 {INR} Normal 0.8-1.1 [facility] Comment on above: Performed By: #### P INR, 01920-1 #### [facility] ([id number]) [address], [address] [place] [address] PT Coag (PPP) [Time] 12.5 s Normal 9.8-13.2 [facility] Comment on above: Performed By: #### P INR, 63523-3 #### [facility] ([id number]) [address], [facility] [address] [place] [address] aPTT Coag (PPP) [Time]on aPTT Coag (Bld) [Time] 44 s High 26-37 [facility] Comment on above: Performed By: #### P INR, 13197-4 #### [facility] ([id number]) [address] [address] [place] [address] Office Visit (Cardiology)on 05-04-2023 Follow-up visit Diagnoses/Problems Assessed Atherosclerosis of coronary artery of [place] heart with angina pectoris (414.01,413.9) (I25.119) Hypertension (401.9) (I10) Hyperlipidemia (272.4) (E78.5) History of PTCA 2 (V45.82) (Z98.61) History of myocardial infarction (412) (I25.2) History of CVA (cerebrovascular accident) (V12.54) (Z86.73) H/O carotid endarterectomy (V45.89) (Z98.890) Overweight with body mass index (BMI) of 25 to 25.9 in adult (278.02,V85.21) (E66.3,Z68.25) Orders Atherosclerosis of coronary artery of [place] heart with angina pectoris Renew: Aspirin 81 MG Oral Tablet Delayed Release; TAKE 1 TABLET DAILY Atherosclerosis of coronary artery of [place] heart with angina pectoris, Hyperlipidemia, Hypertension ALT - Alanine Aminotransferase, Serum; Status:Active - Retrospective Authorization; Requested for:[id number]; AST; Status:Active - Retrospective Authorization; Requested for:[id number]; Lipid Panel; Status:Active - Retrospective Authorization; Requested for:[id number]; Atherosclerosis of coronary artery of [place] heart with angina pectoris, Hypertension Renew: Metoprolol Tartrate 25 MG Oral Tablet; Take 1/2 tablet two times daily Hyperlipidemia Renew: Simvastatin 40 MG Oral Tablet; TAKE 1 TABLET AT BEDTIME Overweight with body mass index (BMI) of 25 to 25.9 in adult Healthy Weight Tips; Status:Complete - Retrospective Authorization; Done: [id number] Some eating tips that can help you lose weight.; Status:Complete - Retrospective Authorization; Done: [id number] Patient Instructions Please bring all medicines, vitamins, [...] negative for complaint. Vitals Vital Signs Recorded: [id number] 10:26AM Heart Rate62, R Radial Lgzmjbcx961, RUE, Sitting Pmuoggxjk34, RUE, Sitting Height5 ft 11 in Ibmwiw344 lb BMI Accuhekygx04.8 kg/m2 BSA Calculated2.04 Tobacco Useb) No PHQ-2 [...] EST (Aut (more content not included)... Normal [facility] US carotid doppler BIon 05-0 US carotid doppler BI [facility] [place] [address] Ultrasound Report Signed Patient: Janice Shultz MR#: [id number] 7 : 1945 Acct:[id number] Age/Sex: 77 / M ADM Date: 12/12/22 Loc: [facility] Room: Type: [facility] Attending Dr: Trinh Bailey NP-C Ordering Provider: Trinh Bailey APRN Date of [...] Keny Ayala M.D.12/12/2022 1:25 PM Dictation Location: [facility] Tech: Mindy Baughkimberly Transcribed By: NAINA 12/12/22 1325 Dictated By: Keny Ayala MD 12/12/22 1324 Signed By: 12/12/[address] [facility] Tobacco Screening.on 022 Adult depression screening assessment No [facility] [employer] DO Work Phone: Fall risk assessment b) One or more fall s in the last year [facility] [employer] DO Work Phone: Tobacco use status CPHS b) No [facility] [employer] 250 DO Work Phone: XR SHOULDER LT 2V [...] Luz MOLINA Date: 2022-02-04 19:02 Normal [facility] CBC AUTO DIFFon 09-13-2021 BASO # 0.1 103/ul Normal 0.0-0.1 [facility] Comment on above: Performed By: #### C BC #### [facility] [address] [address] [address] Kentrell Clement Basophils/100 WBC (Bld) 0.9 % Normal 0.2-2.0 [facility] Comment on above: Performed By: #### C BC #### [facility] [address] [address] [address] Kentrell Clement EO # 0.5 103/ul Normal 0.0-0.7 [facility] Comment on above: Performed By: #### C BC #### [facility] [address] [address] [address] Kentrell Clement Eosinophils/100 WBC (Bld) 6.5 % Normal 0.9-7.0 [facility] Comment on above: Performed By: #### C BC #### [facility] [address] [address] [address] Kentrell Clement Erythrocyte distribution width (RBC) [Ratio] 12.8 % Normal 11.0-15.0 [facility] Comment on above: Performed By: #### C BC #### [facility] [address] [address] [address] Kentrell Clement Hematocrit (Bld) [Volume fraction] 48.9 % Normal 42.0-54.0 [facility] Comment on above: Performed By: #### C BC #### [facility] [address] [place] [address] Dr. Kentrell Clement Hemoglobin (Bld) [Mass/Vol] 15.7 g/dL Normal 14.0-18.0 [facility] Comment on above: Performed By: #### C BC #### [facility] [address] [place] [address] Dr. Kentrell Clement IG # 0.03 10e3/ul Normal 0.00-0.03 [facility] Comment on above: Performed By: #### C BC #### [facility] [address] [place] [address] Dr. Kentrell Clement IG % 0.4 % Normal 0.0-0.5 [facility] Comment on above: Performed By: #### C BC #### [facility] [address] [place] [address] Dr. Kentrell Clement LYMPH # 1.4 103/ul Normal 1.2-3.8 [facility] Comment on above: Performed By: #### C BC #### [facility] [address] [place] [address] Dr. Kentrell Clement Lymphocytes/100 WBC (Bld) 18.2 % Critically low 20.5-60.0 [facility] Comment on above: Performed By: #### C BC #### [facility] [address] [place] [address] Dr. Kentrell Clement MANUAL DIFF REQ NO Normal [facility] Comment on above: Performed By: #### C BC #### [facility] [address] [place] [address] Dr. Kentrell Clement MCH (RBC) [Entitic mass] 27.8 pg Normal 25.9-34.0 [facility] Comment on above: Performed By: #### C BC #### [facility] [address] [place] [address] Dr. Kentrell Clement MCHC (RBC) [Mass/Vol] 32.1 g/dL Normal 29.9-35.2 [facility] Comment on above: Performed By: #### C BC #### [facility] [address] [place] [address] Dr. Kentrell Clement MCV (RBC) [Entitic vol] 86.5 fL Normal 80.0-94.0 [facility] Comment on above: Performed By: #### C BC #### [facility] [address] [place] [address] Dr. Kentrell Clement MONO # 0.6 103/ul Normal 0.3-0.8 [facility] Comment on above: Performed By: #### C BC #### [facility] [address] [place] [address] Dr. Kentrell Clement Monocytes/100 WBC (Bld) 7.9 % Normal 1.7-12.0 [facility] Comment on above: Performed By: #### C BC #### [facility] [address] [place] [address] Dr. Kentrell Clement NEUT # 5.2 103/ul Normal 1.4-6.5 [facility] Comment on above: Performed By: #### C BC #### [facility] [address] [place] [address] Dr. Kentrell Clement Neutrophils/100 WBC (Bld) 66.1 % Normal 43.0-75.0 [facility] Comment on above: Performed By: #### C BC #### [facility] [address] [place] [address] Dr. Kentrell Clement Platelet mean volume (Bld) [Entitic vol] 9.9 fL Normal 9.5-13.5 [facility] Comment on above: Performed By: #### C BC #### [facility] [address] [place] [address] Dr. Kentrell Clement PLT 249 103/ul Normal 150-450 [facility] Comment on above: Performed By: #### C BC #### [facility] [address] [place] [address] Dr. Kentrell Clement RBC 5.65 106/ul Normal 4.70-6.10 [facility] Comment on above: Performed By: #### C BC #### [facility] [address] [place] [address] Dr. Kentrell Clement WBC 7.8 103/ul Normal 4.0-11.0 [facility] Comment on above: Performed By: #### C BC #### [facility] [address] [place] [address] Dr. Kentrell Clement LIPASEon 09-13-2021 Lipase [Catalytic activity/Vol] 168.0 U/L Normal 23.0-300.0 [facility] Comment on above: Performed By: #### H STROPN, LIPA, CMP #### [facility] [address] [address] [address] Kentrell Clement PROF 14(COMP METB)on 022 Albumin [Mass/Vol] 4.3 g/dL Normal 3.5-5.0 [facility] Comment on above: Performed By: #### H STROPN, LIPA, CMP #### [facility] [address] [place] [address] Dr. Kentrell Clement Albumin/Globulin [Mass ratio] 1.0 {ratio} Normal [facility] Comment on above: Performed By: #### H STROPN, LIPA, CMP #### [facility] [address] [place] [address] Dr. Kentrell Clement ALP [Catalytic activity/Vol] 52 U/L Normal 38-126 [facility] Comment on above: Performed By: #### H STROPN, LIPA, CMP #### [facility] [address] [place] [address] Dr. Kentrell Clement ALT [Catalytic activity/Vol] 27 U/L Normal 21-72 [facility] Comment on above: Performed By: #### H STROPN, LIPA, CMP #### [facility] [address] [place] [address] Dr. Kentrell Clement Anion gap [Moles/Vol] 9.7 mmol/L Normal [facility] Comment on above: Performed By: #### H STROPN, LIPA, CMP #### [facility] [address] [place] [address] Dr. Kentrell Clement AST [Catalytic activity/Vol] 17 U/L Normal 17-59 [facility] Comment on above: Performed By: #### H STROPN, LIPA, CMP #### [facility] [address] [address] [address] Kentrell Clement Bilirubin [Mass/Vol] 0.6 mg/dL Normal 0.2-1.3 [facility] Comment on above: Performed By: #### H STROPN, LIPA, CMP #### [facility] [address] [place] [address] Dr. Kentrell Clement Calcium [Mass/Vol] 9.6 mg/dL Normal 8.4-10.2 [facility] Comment on above: Performed By: #### H STROPN, LIPA, CMP #### [facility] [address] [address] [address] Kentrell Clement Chloride [Moles/Vol] 102 mmol/L Normal 98-107 [facility] Comment on above: Performed By: #### H STROPN, LIPA, CMP #### [facility] [address] [place] [address] Dr. Kentrell Clement CO2 [Moles/Vol] 28.3 mmol/L Normal 22.0-30.0 [facility] Comment on above: Performed By: #### H STROPN, LIPA, CMP #### [facility] [address] [place] [address] Dr. Kentrell Clement Creatinine [Mass/Vol] 1.20 mg/dL Normal 0.66-1.25 [facility] Comment on above: Performed By: #### H STROPN, LIPA, CMP #### [facility] [address] [place] [address] Dr. Kentrell Clement EGFR-AF GAMBIAN >60 Normal >=60 [facility] Comment on above: Performed By: #### H STROPN, LIPA, CMP #### [facility] [address] [place] [address] Dr. Kentrell lCement EGFR-NON AF GAMBIAN 59 mL/min/1.73m2 Critically low >=60 [facility] Comment on above: Performed By: #### H STROPN, LIPA, CMP #### [facility] [address] [place] [address] Dr. Kentrell Clement Globulin (S) [Mass/Vol] 4.3 g/dL Normal [facility] Comment on above: Performed By: #### H NICHOLAS LIPA, CMP #### [facility] [address] [address] [address] Kentrell Clement Glucose [Mass/Vol] 149 mg/dL Critically high 74-106 [facility] Comment on above: Performed By: #### H STROPN LIPA, CMP #### [facility] [address] [address] [address] Kentrell Clement Potassium [Moles/Vol] 4.0 mmol/L Normal 3.4-5.0 [facility] Comment on above: Performed By: #### H STROPN LIPA, CMP #### [facility] [address] [place] [address] Dr. Kentrell Clement Protein [Mass/Vol] 8.6 g/dL Critically high 6.1-8.2 [facility] Comment on above: Performed By: #### H STROPN LIPA, CMP #### [facility] [address] [place] [address] Dr. Kentrell Clement Sodium [Moles/Vol] 136 mmol/L Critically low 137-145 [facility] Comment on above: Performed By: #### H STROPN LIPA, CMP #### [facility] [address] [place] [address] Dr. Kentrell Clement Urea nitrogen [Mass/Vol] 21.0 mg/dL Critically high 9.0-20.0 [facility] Comment on above: Performed By: #### H STROPN, LIPA, CMP #### [facility] [address] [place] [address] Dr. Kentrell Clement Urea nitrogen/Creatinine [Mass ratio] 17.5 mg/mg Normal [facility] Comment on above: Performed By: #### H STROPN, LIPA, CMP #### [facility] [address] [address] [address] Kentrell Clement TROPONIN, HIGH SENSITIVITYon 09-13-2021 HSTROP 12.6 pg/mL Normal 4.0-42.2 [facility] Comment on above: Result Comment: CUT- OFF POINTS HAVE BEEN ESTABLISHED BASED ON THE FOURTH UNIVERSAL DEFINITIONS OF MYOCARDIAL INFARCTION. THE UPPER REFERENCE LIMIT (URL) OF TROPONIN, DEFINED THE 99TH PERCENTILE OF cTnI DISTRIBUTION IN A REFERENCE POPULATION, HAS BEEN CONFIRMED THE DECISION THRESHOLD FOR NH DIAGNOSIS. Performed By: #### H STROPN #### [facility] [address], [place] [address] Dr. Kentrell Clement HSTROP 12.4 pg/mL Normal 4.0-42.2 [facility] Comment on above: Result Comment: CUT- OFF POINTS HAVE BEEN ESTABLISHED BASED ON THE FOURTH UNIVERSAL DEFINITIONS OF MYOCARDIAL INFARCTION. THE UPPER REFERENCE LIMIT (URL) OF TROPONIN, DEFINED THE 99TH PERCENTILE OF cTnI DISTRIBUTION IN A REFERENCE POPULATION, HAS BEEN CONFIRMED THE DECISION THRESHOLD FOR NH DIAGNOSIS. Performed By: #### H STROPN, LIPA, CMP #### [facility] [address], [place] [address] Dr. Kentrell Clement XR CHEST 2 Von [...] SHERIF TREADWELL Date: 2021-09-13 09:51 Normal [facility] CARDIAC STRESS/REST INJE CTIONon 05-17-2021 [facility] CARDIAC STRESS/REST INJECTION Patient Name: JANICE SHULTZ STUDY: MYOCARDIAL PERFUSION STRESS TEST WITH EXERCISE CONVERTED TO LinkdexISCAN Performing facility: [facility], [address] [place] [address], [address], [place] [address] [facility] Provider: Devika Evangelista DO, FACC PCP: Dr. Reyna Paredes Supervising provider: Devika Evangelista DO, FACC INDICATION: CAD with angina Fatigue HISTORY: Gender: M; Age: 76 y/o ; Height: 180.34 cm; Weight: 85.0002304 kg. High Cholesterol; Previous NH; HTN; Fatigue; Denies smoking. Cardiac catheterization on 2014. PTCA on 2014. COMPARISON: No comparison. ACCESSION NUMBER(S): [id number]; [id number]; [id number] ORDERING CLINICIAN: [place] TECHNIQUE: ONE DAY [...] Electronically signed by: JAYLEN FERRARI MD [facility] No Panel Informationon 05-17 [facility] Heart-Sandu laury 250 DO Work Phone: BASIC METABOLIC PANELon 01-11 Anion gap 8 mmol/L Normal - [facility] Comment on above: Performed By: #### L AB15 ####[facility] [id number] [address], [address]#### [id number] ####[facility] [id number] [place] [address] [phone] BASIC METABOLIC PANEL Normal [facility] Comment on above: Result Comment: Slig htly hemolyzed. Hemolysis may affect this result. Specimen may be redrawn at the discretion of ordering physician. Performed By: #### L AB15 ####[facility] [id number] [place] [address] [place]#### [id number] ####[facility] [id number] [place] [address] [phone] BUN (urea nitrogen) 14 mg/dL Normal - [facility] Comment on above: Performed By: #### L AB15 ####[facility] [id number] [place] [address] [place]#### [id number] ####[facility] [id number] [place] [address] [facility], [place] [phone] Calcium 8.0 mg/dL Abnormal 8.5-10.1 [facility] Comment on above: Performed By: #### L AB15 ####[facility] [id number] [place] [address] [place]#### [id number] ####[facility] [id number] [place] [address] [facility], [place] [phone] Chloride 109 mmol/L Abnormal 98-107 [facility] Comment on above: Performed By: #### L AB15 ####[facility] [id number] [place] [address] [place]#### [id number] ####[facility] [id number] [place] [address] [facility] AND [place] [address], [place] [phone] CO2 28 mmol/L Normal 21-32 [facility] Comment on above: Performed By: #### L AB15 ####[facility] [id number] [place] [address] [place]#### [id number] ####[facility] [id number] [place] [address] [facility], [place] [phone] Creatinine 0.9 mg/dL Normal 0.60-1.3 [facility] Comment on above: Performed By: #### L AB15 ####[facility] [id number] [place] [address], [address]#### [id number] ####[facility] CLIA [id number] [place] [address], [facility]31 [facility], [place] [phone] eGFR (black) mL/min/{1.73_m2} Normal >60 [facility] Comment on above: Result Comment: GFR is estimated using creatinine, age, gender, and race. Patient's values should be interpreted as a trend. For additional information: [email or web address] Performed By: #### L AB15 ####[facility] [id number] [place] [address], [address]#### [id number] ####[facility] [id number] [place] [address], [address] [facility], [place] [phone] eGFR (non-black) mL/min/{1.73_m2} Normal >60 [facility] Comment on above: Result Comment: GFR is estimated using creatinine, age, gender, and race. Patient's values should be interpreted as a trend. For additional information: [email or web address] Performed By: #### L AB15 ####[facility] [id number] [place] [address], [facility]31 [facility]#### [id number] ####[facility] [id number] [place] [address], [address] [facility], [place] [address] Glucose mass conc 114 mg/dL Abnormal 74-106 [facility] Comment on above: Performed By: #### L AB15 ####[facility] [id number] [place] [address] [place]#### [id number] ####[facility] [id number] [place] [address] [facility], [place] [phone] Potassium molar conc 4.1 mmol/L Normal 3.5-5.1 [facility] Comment on above: Performed By: #### L AB15 ####[facility] [id number] [place] [address] [place]#### [id number] ####[facility] [id number] [place] [address] [facility] AND [place] [id number], [place] [phone] Sodium 145 mmol/L Normal 136-145 [facility] Comment on above: Performed By: #### L AB15 ####[facility] [id number] [place] [address] [place]#### [id number] ####[facility] [id number] [place] [address] [facility] AND [place] [id number], [place] [phone] CBC W/DIFFon 01-23-2018 Basophils/100 WBC Auto (Bld) 1.1 % Normal [facility] Comment on above: Performed By: #### L AB15 ####[facility] [id number] [place] [address] [place]#### [id number] ####[facility] [id number] [place] [address] [facility] AND [place] [id number], [place] [phone] BSA (Body Surface Area) 0.1 K/uL Normal 0.0-0.1 [facility] Comment on above: Performed By: #### L AB15 ####[facility] [id number] [place] [address] [place]#### [id number] ####[facility] [id number] [place] [address] [facility], [phone] Eosinophils 0.4 10*3/uL Normal 0.0-0.4 [facility] Comment on above: Performed By: #### L AB15 ####[facility] [id number] [place] [address] [place]#### [id number] ####[facility] [id number] [place] [address] [place] [facility] [place] [phone], [phone] Eosinophils 8.2 10*3/uL Normal [facility] Comment on above: Performed By: #### L AB15 ####[facility] [id number] [place] [address] [place]#### [id number] ####[facility] [id number] [place] [address] [place] AND [place] [id number], [phone] Erythrocyte distribution width Auto Ratio (RBC) 13.2 % Normal 11.7-15.2 [facility] Comment on above: Performed By: #### L AB15 ####[facility] [id number] [place] [address] [place]#### [id number] ####[facility] [id number] [place] [address] [facility], [phone] Erythrocytes (RBC) 5.32 10*6/uL Normal 4.30-5.86 [facility] Comment on above: Performed By: #### L AB15 ####[facility] [id number] [place] [address] [place]#### [id number] ####[facility] [id number] [place] [address], [facility]31 [facility] AND [place] [phone] Hematocrit (HCT) 45.5 % Normal 39.0-51.5 [facility] Comment on above: Performed By: #### L AB15 ####[facility] [id number] [place] [address] [place]#### [id number] ####[facility] [id number] [place] [address] [facility] AND [place] [phone], [phone] Hemoglobin mass conc (Bld) 15.3 g/dL Normal 13.1-17.6 [facility] Comment on above: Performed By: #### L AB15 ####[facility] [id number] [place] [address] [place]#### [id number] ####[facility] [id number] [place] [address] [facility] AND [place] [phone], [phone] Lymphocytes 22.0 10*3/uL Normal [facility] Comment on above: Performed By: #### L AB15 ####[facility] [id number] [place] [address] [place]#### [id number] ####[facility] [place] [id number] [place] [address], [facility]31 [facility] AND [place] [phone], [address] Lymphocytes 1.1 10*3/uL Normal 0.8-3.6 [facility] Comment on above: Performed By: #### L AB15 ####[facility] [id number] [place] [address] [place]#### [id number] ####[facility] [place] [id number] [place] [address], [address] [place] [phone], [address] MCH 28.7 pg Normal 28.4-33.4 [facility] Comment on above: Performed By: #### L AB15 ####[facility] [id number] [place] [address], [facility]31 [place]#### [id number] ####[facility] [id number] [place] [address], [facility]31 [facility] AND [place] [address], [place] [phone] MCHC mass conc (RBC) 33.5 g/dL Normal 31.1-37.0 [facility] Comment on above: Performed By: #### L AB15 ####[facility] [id number] [place] [address], [facility]31 [place]#### [id number] ####[facility] [id number] [place] [address] [facility], [place] [phone] MCV 85.6 fL Normal 85.0-99.0 [facility] Comment on above: Performed By: #### L AB15 ####[facility] [id number] [place] [address] [place]#### [id number] ####[facility] [id number] [place] [address] [facility], [place] [phone] Monocytes 7.3 10*3/uL Normal [facility] Comment on above: Performed By: #### L AB15 ####[facility] [id number] [place] [address] [place]#### [id number] ####[facility] [id number] [place] [address] [facility], [place] [phone] Monocytes 0.4 10*3/uL Normal 0.3-0.9 [facility] Comment on above: Performed By: #### L AB15 ####[facility] [id number] [place] [address] [place]#### [id number] ####[facility] [id number] [place] [address] [facility], [place] [phone] Neutrophils 3.1 10*3/uL Normal 2.0-7.3 [facility] Comment on above: Performed By: #### L AB15 ####[facility] [place] [id number] [place] [address] [place]#### [id number] ####[facility] [id number] [place] [address] [facility], [place] [phone] Neutrophils 61.4 10*3/uL Normal [facility] Comment on above: Performed By: #### L AB15 ####[facility] [id number] [place] [address] [place]#### [id number] ####[facility] [id number] [place] [address] [facility], [place] [phone] Platelets 187 10*3/uL Normal 154-393 [facility] Comment on above: Performed By: #### L AB15 ####[facility] [id number] [place] [address] [place]#### [id number] ####[facility] [id number] [place] [address] [place] [place] [address], [place] [phone] WBC (Leukocytes) 5.0 10*3/uL Normal 4.0-10.5 [facility] Comment on above: Performed By: #### L AB15 ####[facility] [id number] [place] [address] [place]#### [id number] ####[facility] [id number] [place] [address] [facility], [place] [phone] CT-HEAD W/O CONTRASTon 01-23 CT-HEAD W/O CONTRAST [...] Finn Gentile MD, 01/23/2018 11:43 AM Normal [facility] EKG STANDARD 12 LEADon 01-23 Pulse (Heart Rate) RR Interval= 822 msP R Interval= 180 msQRSD Interval= 115 msQT Interval= 385 msQTc Interval= 425 msHeart Rate= 73 msP Darling= 60 degQRS Darling= -26 degT Wave Darling= 5 degI: 40 Darling= -12 degT: 40 Darling= -39 degST Darling= -61 degSinus rhythm Nonspecific intraventricular conduction delay Inferior infarct, old Electronically Signed by: Sherif Nam) 23-Jan-2018 10:43:27 Date and Time of Study: 2018-01-23 10:11:14 Normal [facility] TROPONIN Ion 01-23-2018 Troponin I.cardiac mass conc ng/mL Normal 0.000-0.04 5 [facility] Comment on above: Performed By: #### L AB15 ####[facility] [id number] [place] [address] [facility]#### [id number] ####[facility] [id number] [facility] [address] [place] [address] [address] HospitalBeDorothy, [place] [phone] Troponin I.cardiac mass conc Normal [facility] Comment on above: Result Comment: Trop onin I 0.045-0.600 is abnormal but not clinically relevant. Please correlate with other clinical findings. Troponin I >0.600 is clinically relevant in accordance with WHO criteria. Performed By: #### L AB15 ####[facility] [id number] [place] [id number] [facility]#### [id number] ####[facility] [id number] [place] [id number] [facility]ITAL[facility] AND [place] [phone] Consultson 09-08-2016 Consults Encounter Department : [facility] MED SURG WESTConsults by Paris An RD at 09/08/2016 10:08 AMAuthor: ADDY Chauervice: NutritionAuthor Type: Registered DietitianFiled: 09/08/2016 10:09 AMNote Time: 09/08/2016 10:08 AMNote Type: ConsultsStatus: SignedEditor: Paris An RD (Registered Dietitian) Consult Orders: 1. IP Consult To Nutrition Care [[id number]] ordered by Jailene Flores MD at 09/07/16 [...] be available as needed for any questions. Normal [facility] Procedureson 09-08-2016 Procedures Encounter Department : [facility] MED SURG WESTProcedures by Asmita De at 09/08/2016 2:27 PMAuthor: Asmita Dawkinservice: CardiologyAuthor Type: TechnologistFiled: 09/08/2016 2:46 PMNote Time: 09/08/2016 2:27 PMNote Type: ProceduresStatus: SignedEditor: Asmita De (Technologist)Cosigner: Walt Mckeon MD at 09/08/2016 2:49 PMPatient InformationPatient NameSexDOOmar White1945 [id number] Progress Notes by Walt Mckeon MD at 09/08/2016 2:23 PMAuthor: ANDRESSA Huangervice: CardiologyAuthor Type: PhysicianFiled: 09/08/2016 2:27 PMNote Time: 09/08/2016 2:23 PMStatus: AddendumEditor: Walt Mckeon MD (Physician)Related Notes:Original Note by Walt Mckeon MD (Physician) filed at 09/08/2016 2:27 PMExpand All <#> Collapse All <#>BRENDAN ReportName: Janice Shultz Date/Time of Admission: 09/07/2016 7:48 [facility] [id number] Attending Provider: Dwight Jackson MD Room/Bed: [facility]/T0965GRVR: 1945 71 y.o.DATE OF PROCEDURE: 09/08/2016Procedure: Transesophageal [...] at bedside.Electronicallysigned by: Walt Mckeon MD 09/08/2016 [facility] Progress Noteson 09-08-2016 Progress Notes Encounter Department : [facility] MED SURG WESTProgress Notes by Dwight [...] Polo Jackson MD Electronicallysigned by: Verónica Holden APRN-SHIFT SUPERINTENDENT CAUSTIC CRESYLATE 09/08/2016Subjective: Patient states he is doing better. [...] <0.015I have reviewed all the above laboratory findingsSulizbeth Holden, GRAIN ELEVATOR MOTOR STARTER-CNP09/08/2016Attending addendumPt seen with the midlevel providerHistory/exam/labs/pl an of care reviewedAdm for a stroke with mutliple infarcts in R hemisphereHad a BRENDAN that was negativeHemodynamically stableFU with cardiology for a Loop recorder to r/o PAFContinue current meds.No DC summary <48hrs in KMCTime spent on DC process 35 minutes Normal [facility] Progress Notes Encounter Department : [facility] MED SURG WESTProgress Notes by Alberto [...] be arranged by his local physicians [place] [facility] Progress Notes Encounter Department : [facility] MED SURG WESTProgress Notes by Walt Mckeon MD at 09/08/2016 2:23 PMAuthor: ANDRESSA Huangervice: CardiologyAuthor Type: PhysicianFiled: 09/08/2016 2:27 PMNote Time: 09/08/2016 2:23 PMNote Type: Progress NotesStatus: AddendumEditor: Walt Mckeon MD (Physician)Related Notes:Original Note by Walt Mckeon MD (Physician) filed at 09/08/2016 2:27 PMTEE ReportName: Janice Shultz Date/Time of Admission: 09/07/2016 7:48 [facility] [id number] Attending Provider: Dwight Jackson [facility]/Bed: R3306/Q9381G : 1945 71 y.o.DATE OF PROCEDURE: 09/08/2016Procedure: [...] at bedside.Electronicallysigned by: Walt Mckeon MD 09/08/2016 [facility] Progress Notes Encounter Department : [facility] MED SURG WESTProgress Notes by Kamla Ramos, RN at 09/08/2016 2:24 PMAuthor: Kamla Ramos, ANNEervice: (none)Author Type: Registered NurseFiled: 09/08/2016 2:25 PMNote Time: 09/08/2016 2:24 PMNote Type: Progress NotesStatus: SignedEditor: Kamla Ramos, RN (Registered Nurse)Patient arrived [facility] in stable condition. Patient awake, resting in bed, VSS, willcontinue to monitor [facility] Progress Notes Encounter Department : [facility] MED SURG WESTProgress Notes by Alberto Newman MD at 09/08/2016 12:12 PMAuthor: ANDRESSA Willervice: CardiologyAuthor Type: PhysicianFiled: 09/08/2016 1:45 PMNote Time: 09/08/2016 12:12 PMNote Type: Progress NotesStatus: SignedEditor: Alberto Newman MD (Physician)Related Notes:Original Note by Monet Wallace PA-C (Physician Costume Maker) filed at 09/08/201612:15 PM Cardiology Progress NoteAssessment:Acute JIF-QCJ-pvbyhprn right side acute strokesA. Hx of CVA right parieto-occipital lobe 11/26 has been on Plavix, ASACarotid stenosis bilateral ICA 1-49% stenosis CAD s/p [place] 2014 with stent o8-AycnkusrZENDSS-wb simvastatinHypertriglyceride [facility] Forming Machine Upkeep Mechanic: Barbara Gupta:HR and BP stable. Have not [...] data filed at 09/08/16 1100Gross per 24 euznTpcllb199.17 mlOutput 200 snSno563.17 mlPhysical Exam:General AppearanceStanding, ambulating, NADHEENTNC/ATChestClearCardi ovascularRRR no [...] 10 mgOralNIGHTLY AT BEDTIMEMEDSINFUSIONS: -0.9 % sodium xdprhdab66 mL/hr (09/08/16 0818)Imaging Studies: Reviewed in chartElectronicallysigned by: ALBERTO NEWMAN, 09/08/2016, 1:45 PM [facility] Progress Notes Encounter Department : [facility] MED SURG WESTProess Notes by Lissette Valdovinos PTA at 09/08/2016 9:23 AMAuthor: Lissette Valdovinos PTAService: PT TreatmentAuthor Type: Physical Therapy AssistantFiled: 09/08/2016 12:24 PMNote Time: 09/08/2016 9:23 AMNote Type: Progress NotesStatus: SignedEditor: Lissette Valdovinos PTA (Medical Social Worker)Related Notes:Original Note by Lissette Valdovinos PTA (Medical Social Worker) filed 09/08/2016 11:57 AMCosigner: Jana Ashby PT at 09/14/2016 12:30 PM[facility] CenterPhysical Therapy TreatmentAdmit date: 09/07/2016 Today's Date: 09/08/2016Patient Name/MR#: Janice Shultz [id number] Room: [facility]/P4305VKzsyoxrht Diagnosis: Left arm numbness [R20.0]TIA (transient ischemic attack) [G45.9]Admitting Provider:No admitting provider for patient encounter.Height:5' 11 (1.803 m) Weight: 196 lb 12.8 oz (89.268 kg)Recent Labs:Recent Labs 09/07/16 0816HEMOGLOBIN 15.3Current Medical Status: per chart review: 71 y.o. R - handed male [facility] numbness and tingling [...] shower, s/c built in, denies gb, 2 CJ, full flight up and downstairswith HR. 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, as pt is from [facility], when this occurred; pt and shareIADL; [...] s:Barriers to Learning:NoneCognitionHearin gVisionMotivationReadinessJu dgmentInsightAwarenessEasily DistractedPre-MorbidMental StatusLanguage barrier(non-Dutch speaking)Communication BarrierPainComments:Observat ions/Vitals: pt in bed with [...] 28 < 18 = High Risk of Fkkdl38-96 = Moderate Risk > 24 = Low RiskBalance:SittingStatic-GD ynamic-GStandingStatic- FDynamic-FExercises this session: seated AROM x 10 with hip Flexon, ab/add, ap and LAQPatient/Family Education:Role of PTTx plan reviewedFamily PresentNo Family PresentPrecautionsHEPGait/St air trainingHome SafetyBody MechanicsTransfer TrainingCar TransferInterdisciplinary Communication:Spoke [...] will perform sit to stand transfers with NH.3. Pt will amb. 25 ft with SUP [...] 1 flight of stairs with HR and NH w/o LOB.Discharge Recommendations:PT Discharge Recommendations: Home with [...] 7 days/wkDuration of Treatment: 2 weeksSamary jo Valdovinos, PTATime In: 900 Time Out: 923Total Treatment [...] 1220Total tx time: 10Timed coded minutes: 10 [facility] Progress Notes Encounter Department : [facility]Aud[facility] Centeress Notes by Devyn Bocanegra DO at 09/08/2016 10:33 AMAuthor: Devyn Bocanegra, DOService: NeurologyAuthor Type: PhysicianFiled: 09/08/2016 11:48 AMNote Time: 09/08/2016 10:33 AMNote Type: Progress NotesStatus: SignedEditor: Devyn Bocanegra DO (Physician).Neurology Progress NoteMOBILE INFIRMARY MEDICAL CENTERPatient Name: Janice ChandlerB: 1945MRN: [id number]:The patient was seen and examined. No acute changes over night, no new stroke symptoms. He feelspretty much back to his baseline.Objective:Current Facility-Administered MedicationsMedicationDoseRou teFrequencyProviderLast RateLast Dose -0.9 % sodium chloride infusion 50 mL/hrIntravenousCONTINUOUSSa kady Flores MD50 mL/hr at09/08/16 425843 mL/hr at 09/08/16 0818 -0.9 % sodium chloride solution saline flush 3 mL 3 mLIntravenko3 times per dayJameson Peters MD3 mL at 09/07/16 1300 -0.9 % sodium chloride solution saline flush 3 mL 3 mLIntravenHolland Sheridan MD -acetaminophen (TYLENOL) tablet 650 mg 650 mgOralEVERY 4 HOURS PRJaime Flores MD650 mg at09/07/16 1439Or -acetaminophen (TYLENOL) suppository 650 mg 650 mgRectalEVERY 4 HOURS PRJaime Flores MD -ALPRAZolam (XANAX) tablet 1 mg 1 mgOralNIGHTLY AT BEDTIME PRJaime Flores MD1 mg at09/07/16 2155 -aspirin EC tablet 325 mg 325 mgCelsoDAJenise Flores MD325 mg at 09/08/16 0819Or -aspirin suppository 300 mg 300 mgRectalDAILSherly Flores MD -atropine 0.1 mg/ mL injection 0.5-1 mg 0.5-1 mgIntravenHolland Sheridan MD -clopidogrel (PLAVIX) tablet 75 mg 75 mgOralDAILYJailene Flores MD75 mg at 09/08/16 0819 -enoxaparin (LOVENOX) injection 40 mg 40 mgSubcutaneousDAILY AT 0800Jailene Flores MD40 mgat 09/08/16 0818 -hydrALAZINE (APRESOLINE) injection 10 mg 10 mgIntravenousEVERY 6 HOURS PRJaime Flores MD -HYDROcodone-acetaminophen (NORCO) 5-325 mg per tablet 1 tablet 1 tabletOralEVERY 6 HOURSPRNValerie Jeremiah Sommer MD1 tablet at 09/08/16 0436 -lidocaine (XYLOCAINE) injection 50-100 mg 50-100 mgIntravenousAS NEEDEDJaoceans behavioral hospital biloxi Minerva Sheridan MD -metoprolol tartrate (LOPRESSOR) tablet 25 mg 25 mgOralTWO TIMES DAILYValorierigissell Sommer MD25 mg at 09/08/16 0819 -morphine injection 2 mg 2 mgIntravenousQ5 Min PRNSierra [facility] MD Arvin -nitroGLYCERIN (NITROSTAT) SL tablet 0.4 mg 0.4 mgSublingualQ5 Min PRNSierra Vista Regional [facility] MD Arvin -ondansetron (ZOFRAN) injection 4 mg 4 mgIntravenousEVERY 4 HOURS PRNSame Sophie Flores -ondansetron (ZOFRAN-ODT) disintegrating tablet 4 mg 4 mgOralEVERY 4 HOURS PRNSameer MD Maria Teresa -promethazine (PHENERGAN) 12.5 mg in 0.9 % sodium chloride 50 mL IVPB 12.5 mgIntravenousEVERY4 HOURS PRNSameer Sophie Flores -promethazine (PHENERGAN) injection 12.5 mg 12.5 mgIntramuscularEVERY 4 HOURS PRNSameeramarSophie -promethazine (PHENERGAN) tablet 12.5 mg 12.5 mgOralEVERY 4 HOURS PRNSdign[facility] MD Maria Teresa -senna-docusate (SENOKOT-S) 8.6-50 mg per tablet 2 tablet 2 tabletOralNIGHTLY AT BEDTIMEPRNSdignity health [facility] MD Maria Teresa -simvastatin (ZOCOR) tablet 10 mg 10 mgOralNIGHTLY AT BEDTIMESdignity health [facility] MD Maria Teresa10 mg at09/07/162022Vital Signs:BP: 137/97 mmHg (09/08 809)Temp: [...] bilaterally Coordination: Tremors-- None Gait/Station: DeferredLabs:Recent Labs 09/07/16 0816 09/07/16 1054WBC 8.8 --HEMOGLOBIN 15.3 --NA 139 --K 4.8 --CL 101 --CO2 27 --BUN 14 --CREATININE 1.03 --INR 1.0 1.1PTT -- 41.2*,Last TSH ResultsResults for orders placed or performed during the hospital encounter of 09/07/16TSHResultValueRef RangeTSH0.7050.358-3.740 uIU/mL,Last Free T4 ResultsNo results found for this or any previous visit.,Results for orders placed or performed during the hospital encounter of 09/07/16Lipid PanelResultValueRef NduftMbhgncggdjy896<=200 mg/zIRlctfcrwbjmag989 (A)0-149 mg/dLHDL36 (A)40-60 mg/dLLDL Cholesterol0-99 mg/kANPBY56 (A)0-40 mg/dL,No results found for this or any previous visit.Last Liver Function Results:No results for input(s): ALT, AST, BILIDIR, ALKPHOS in the last 168 hours.Invalid input(s): BILITOTALImaging/Other Studies:CT head: nonacute, stable old infarction in right parieto-occipital lobe, stable small vesselischemic disease.MRI brain: Multiple scattered embolic infarctions throughout the MCA/UNDERCAR SPECIALIST distributionCUS: B 1-49%Echo: EF 60% November 2015Reviewed [...] brain: Multiple scattered embolic infarctions throughout the MCA/UNDERCAR SPECIALIST distribution3. CUS: B 1-49%4. Echo: EF: 60%3.Risk Factors: age, HTN, recent infarct.4.Secondary stroke prevention: on ASA, Plavix and Zocor outpatient.5.Recommend BRENDAN as this patient has very likely embolic origin of infarctions with a stable ECHO.BRENDAN scheduled for 2. If this is normal, would recommend outpatient group home event monitoring.6.Follow up outpatient with stroke clinic7.Continue PT/OT/Judith Bocanegra, 09/08/2016 Normal [facility] Progress Notes Encounter Department : [facility] MED SURG WESTProgress Notes by Devyn Mcmahon OT at 09/08/2016 8:30 AMAuthor: SUNNY Olveraervice: MAGDI TreatmentAuthor Type: Occupational TherapistFiled: 09/08/2016 10:55 AMNote Time: 09/08/2016 8:30 AMNote Type: Progress NotesStatus: SignedEditor: Devyn Mcmahon OT (Occupational Therapist)[facility] Occupational Therapy TreatmentAdmit date: 09/07/2016 Today's Date: 09/08/2016Patient Name/MR#: Janice Shultz [id number] Room: R3306/W6997PKfxclvlrv Diagnosis: Left arm numbness [R20.0]TIA (transient ischemic attack) [G45.9]Admitting Provider:No admitting provider for patient encounter.Height:5' 11 (1.803 m) Weight: 196 lb 12.8 oz (89.268 kg)Recent Labs:Recent Labs 09/07/16 0816HEMOGLOBIN 15.3Current Medical Status: per chart review: 71 y.o. R - handed male [facility] with left arm numbness and tingling [...] shower, s/c built in, denies gb, 2 CJ, full flight up and downstairswith HR. 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, as pt is from [facility], when this occurred; pt and shareIADL; pt reports he has built 3 housesPrecautions / Important Patient Information:Activity/Safety: Assist to bedside commodeComments/Precautions: IV site, bed alarm, fall riskPertinent info since last OT session:Precautions:[facility] riskOrthopedicWeightbearingB ackCervicalPacerSeizureConta ctAirborneDropletNeutropenic Comments:SUBJECTIVE:Pt states agreeable to OT treatmentRN Char briones therapyPain Rating Score: 0/10 Pain Location: NATherapist Pain Intervention (if pt reported unacceptable level of pain): no intervention necessaryat this timeOBJECTIVE:Mental StatusAlertDrowsyLethargicUn responsiveCooperativeUncoope rativeAppropriateInappropria teFollows Commands1 Step2 StepMultiStepNoneConsistentl yInconsistentlyEasily DistractedDelayedOrientation PersonPlaceTimeEventsComment s:Barriers to LearningNoneCognitionHearing VisionMotivationReadinessEas lupe DistractedJudgmentInsightAwa renessPre-MorbidMental StatusLanguage barrierNon-Dutch SpeakingCommunicationBarrier Observations/Vitals: pt seen supine with telemetry, [...] TransferxTub/Shower xFunctional Mobility Comments: bed mobility completed NH, use of unilateral BR. Pt completed STSfrom [...] ADL MI2. Pt will complete LB dressing NH, using AE as needed3. Pt will stand x10 minutes NH while completing ADL tasks with no inc [...] HEPTherapy Frequency: 6-7days/wkDuration of Treatment: 2 weeksDevyn Mcmahon, OTR/LTime In: 805 Time Out: 830Total Treatment Time: 25Timed Code Minutes : 25 Normal [facility] BASIC METABOLIC PANELon 08-14 Anion gap 11 mmol/L Normal 7-16 [facility] Comment on above: Performed By: #### L [id number] ####[facility] CLIA [id number] [place] [address] [facility], [place] [phone]#### [id number] ####[facility] [id number] [place] [address] [place] BUN (urea nitrogen) 14 mg/dL Normal 7-18 [facility] Comment on above: Performed By: #### L [id number] ####[facility] [id number] [place] [address] [facility], [place] [phone]#### [id number] ####[facility] [id number] [place] [address] [place] Calcium 9.2 mg/dL Normal 8.5-10.1 [facility] Comment on above: Performed By: #### L [id number] ####[facility] [id number] [place] [address] [facility], [phone]#### [id number] ####[facility] [id number] [place] [address] [place] Chloride 101 mmol/L Normal 98-107 [facility] Comment on above: Performed By: #### L [id number] ####[facility] [id number] [place] [address] [facility], [place] [phone]#### [id number] ####[facility] CLIA [id number] [place] [address] [facility] CO2 27 mmol/L Normal 21-32 [facility] Comment on above: Performed By: #### L [id number] ####[facility] CLIA [id number] [place] [address], [facility]31 [facility], [place] [phone]#### [id number] ####[facility] CLIA [id number] [place] [address], [facility]31 [facility] Creatinine 1.03 mg/dL Normal 0.60-1.30 [facility] Comment on above: Performed By: #### L [id number] ####[facility] [id number] [place] [address], [facility]31 [facility], [place] [phone]#### [id number] ####[facility] [id number] [place] [address], [facility]31 [facility] eGFR (black) mL/min/{1.73_m2} Normal >60 [facility] Comment on above: Result Comment: GFR is estimated using creatinine, age, gender, and race. Patient's values should be interpreted as a trend. For additional information: [email or web address] Performed By: #### L [id number] ####[facility] CLIA [id number] [place] [address], [facility]31 [facility], [place] [phone]#### [id number] ####[facility] [id number] [place], [facility]31 [facility] eGFR (non-black) mL/min/{1.73_m2} Normal >60 [facility] Comment on above: Result Comment: GFR is estimated using creatinine, age, gender, and race. Patient's values should be interpreted as a trend. For additional information: [email or web address] Performed By: #### L [id number] ####[facility] CLIA [id number] [place] [address] [facility], [place] [address]#### [id number] ####[facility] CLIA [id number] [place] [address] [facility] Glucose mass conc 115 mg/dL Abnormal 74-106 [facility] Comment on above: Performed By: #### L [id number] ####[facility] [id number] [place] [address] [facility], [place] [address]#### [id number] ####[facility] [id number] [place] [address] [facility] Potassium molar conc 4.8 mmol/L Normal 3.5-5.1 [facility] Comment on above: Result Comment: Mode rate hemolysis present. Performed By: #### L [id number] ####[facility] CLIA [id number] [place] [address] [facility], [place] [address]#### [id number] ####[facility] [id number] [place] [address] [facility] Sodium 139 mmol/L Normal 136-145 [facility] Comment on above: Performed By: #### L [id number] ####[facility] [id number] [place] [address], [facility]31 [facility] AND [place] [phone], [place] [address]#### [id number] ####[facility] [place] [id number] [place] [address], [address] CBC W/DIFFon 09-07-2016 Basophils/100 WBC Auto (Bld) 1.0 % Normal [facility] Comment on above: Performed By: #### L AB320 ####[facility] [id number] [place] [address], [address] AND [place] [phone], [place] [address]#### [id number] ####[facility] [id number] [place] [address], [address] BSA (Body Surface Area) 0.1 K/uL Normal 0.0-0.1 [facility] Comment on above: Performed By: #### L [id number] ####[facility] [id number] [place] [address], [facility]31 [facility] AND [place] [phone], [place] [address]#### [id number] ####[facility] [id number] [place], [facility]31 [place] Eosinophils 0.2 10*3/uL Normal 0.0-0.4 [facility] Comment on above: Performed By: #### L [id number] ####[facility] [id number] [place] [address], [address] [place] [phone], [place] [phone]#### [id number] ####[facility] [place] [id number] [place] [address] [place] Eosinophils 2.7 10*3/uL Normal [facility] Comment on above: Performed By: #### L AB320 ####[facility] [id number] [place] [address] [facility] AND [place] [phone], [place] [address]#### [id number] ####[facility] [id number] [place] [address] [facility] Erythrocyte distribution width Auto Ratio (RBC) 11.8 % Normal 11.7-15.2 [facility] Comment on above: Performed By: #### L [id number] ####[facility] [id number] [place] [address] [facility] AND [place] [phone], [place] [address]#### [id number] ####[facility] [id number] [place] [address] [facility] Erythrocytes (RBC) 5.42 10*6/uL Normal 4.30-5.86 [facility] Comment on above: Performed By: #### L [id number] ####[facility] [id number] [place] [address] [place] [facility] [place] [phone], [place] [address]#### [id number] ####[facility] [id number] [place] [address] [facility] Hematocrit (HCT) 45.8 % Normal 39.0-51.5 [facility] Comment on above: Performed By: #### L [id number] ####[facility] [id number] [place] [address] [facility], [place] [phone]#### [id number] ####[facility] [id number] [place] [address] [place] Hemoglobin mass conc (Bld) 15.3 g/dL Normal 13.1-17.6 [facility] Comment on above: Performed By: #### L [id number] ####[facility] [id number] [place] [address] [facility], [place] [phone]#### [id number] ####[facility] [id number] [place] [address] [place] Lymphocytes 1.2 10*3/uL Normal 0.8-3.6 [facility] Comment on above: Performed By: #### L [id number] ####[facility] [id number] [place] [address] [facility], [place] [phone]#### [id number] ####[facility] [id number] [place] [address] [place] Lymphocytes 13.9 10*3/uL Normal [facility] Comment on above: Performed By: #### L [id number] ####[facility] [id number] [place] [address] [facility], [phone]#### [id number] ####[facility] [id number] [place] [address] [place] MCH 28.3 pg Abnormal 28.4-33.4 [facility] Comment on above: Performed By: #### L [id number] ####[facility] [id number] [place] [address] [facility], [phone]#### [id number] ####[facility] [id number] [place] [address] [facility] MCHC mass conc (RBC) 33.5 g/dL Normal 31.1-37.0 [facility] Comment on above: Performed By: #### L [id number] ####[facility] [id number] [place] [address] [facility] [place] [id number], [phone]#### [id number] ####[facility] [id number] [place] [address] [place] MCV 84.5 fL Abnormal 85.0-99.0 [facility] Comment on above: Performed By: #### L [id number] ####[facility] [id number] [place] [address] [facility] [place] [id number], [phone]#### [id number] ####[facility] [id number] [place] [address] [place] Monocytes 6.2 10*3/uL Normal [facility] Comment on above: Performed By: #### L [id number] ####[facility] [id number] [place] [address] [facility], [place] [phone]#### [id number] ####[facility] [id number] [place] [address] [place] Monocytes 0.5 10*3/uL Normal 0.3-0.9 [facility] Comment on above: Performed By: #### L [id number] ####[facility] [id number] [place] [address] [facility], [place] [address]#### [id number] ####[facility] [place] [id number] [place] [address] [place] Neutrophils 6.8 10*3/uL Normal 2.0-7.3 [facility] Comment on above: Performed By: #### L AB320 ####[facility] [id number] [place] [address] [facility] [place] [id number], [place] [phone]#### [id number] ####[facility] [place] [id number] [place] [address] [place] Neutrophils 76.2 10*3/uL Normal [facility] Comment on above: Performed By: #### L AB320 ####[facility] [place] [id number] [place] [address] [facility], [place] [phone]#### [id number] ####[facility] [place] [id number] [place] [address] [place] Platelets 197 10*3/uL Normal 154-393 [facility] Comment on above: Performed By: #### L AB320 ####[facility] [id number] [address] AND [place] [address]#### [id number] ####[facility] [id number] [address] WBC (Leukocytes) 8.8 10*3/uL Normal 4.0-10.5 [facility] Comment on above: Performed By: #### L [id number] ####[facility] [id number] [address] AND [place] [address]#### [id number] ####[facility] [id number] [address]-HEAD W/O CONTRASTon 09-07 CT-HEAD W/O CONTRAST CT-HEAD W/O CONTRAS T DATE OF EXAM: 09/07/2016 8:07 AMCLINICAL INDICATION: CVAPATIENT INFORMATION: History: Left arm tingling and numbness that started this morning, right episcopalian pain with activity. Patient had a stroke [...] by: Titus Kurtz MD, 09/07/2016 8:13 AM [facility] Consultson 09-07-2016 Consults Encounter Department : [facility] MED SURG WESTConsults by Franky Villalobos MD at 09/07/2016 2:32 PMAuthor: ANDRESSA Henryervice: CardiologyAuthor Type: PhysicianFiled: 09/07/2016 4:44 PMNote Time: 09/07/2016 2:32 PMNote Type: ConsultsStatus: SignedEditor: Franky Villalobos MD (Physician)Related Notes:Original Note by Monet Wallace PA-C (Physician Costume Maker) filed at 09/07/2016 3:56 PM Consult Orders: 1. IP Consult to Cardiology [[id number]] ordered by Devyn Bocanegra DO at 09/07/16 1404Cardiology Inpatient ConsultName: Janice Kerr/Time of Admission: 09/07/2016 7:48 AMCSN: [id number] Provider: Ivan Russell/Bed: R3306/D8458MAQP: 1945 Age: 71 y.o.Assessment:Acute TBJ-USO-azanrnod right side acute strokesA. 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 Have not [...] November 2015. He followed up with his hedis registered nurse rn in [place], wore a shaper operator for a short time.(pt thinks 2 days) [...] mg tabletTake 4 tablets by mouth at bedtime.11/26/15YesVindonovan Jacobson, ANNIOS:No F/C/S. Weight stable. Energy stable.HEENT: Pt has [...] during the hospital encounter of 09/07/16Lipid PanelResultValueRef EcqquDabgeffbykx601<=200 mg/qDUqfqzpnbymtsr770 (A)0-149 mg/dLHDL36 (A)40-60 mg/dLLDL Cholesterol0-99 mg/sEUFCB46 (A)0-40 mg/dLChest X-Ray:EXAM:XR-CHEST PA AND LATACCESSION:[id number] TE OF SERVICE:? 09/07/2016 8:26 AMORDERING PROVIDER:JAMESON [...] EPORTSinus rhythmPreliminary?REPORTPrel iminary?Nonspecific intraventricular conduction delay?Interpreting PhysPreliminary?Study Date/[id number] 08:32:39ECHO:16Summary:?1. Normal observed left ventricular ejection fraction of 60%.?2. Mild left ventricular diastolic dysfunction.?3. Mild concentric left ventricular hypertrophy.?4. Aortic root dilatation.?5. The aortic valve is calcified with no significant stenosis.Electronically signed by; Monet Wallace PA-C 09/07/2016 [facility] Consults Encounter Department : [facility] MED SURG WESTConsults by Devyn Bocanegra DO at 09/07/2016 9:47 AMAuthor: Devyn Bocanegra DOService: NeurologyAuthor Type: PhysicianFiled: 09/07/2016 11:02 AMNote Time: 09/07/2016 9:47 AMNote Type: ConsultsStatus: SignedEditor: Devyn Bocanegra DO (Physician) Consult Orders: 1. IP Consult to Neurology [[id number]] ordered by Jailene Flores MD at 09/07/16 0924Neurological Services Consult NoteMO[facility]ENTERPatient Name:Janice Shultz : 1945Subjective:CC:71 y.o. R - handed male presenting [facility] with left arm numbness andtingling that he [...] supple, no meningeal signs; Fundoscopic: nopapilledemaHeart: RRR, T7B8Titab: CTABAbd: soft/NT/ND, +BSExt: no edema, no calf [...] Tremors--none Rapidly alternating movements: no dysdiadochokinesia b/l Ewxy-cr-Jlmq: no dysmetria b/l Kwriva-sd-Ppsl: no dysmetria b/lGait and stance: Gait: deferredLABS:Recent [...] evaluation please feel free to contact us.Devyn Bocanegra DO, 09/07/2016 9:48 AM [facility] ED Provider Noteson 09-07-19 17 ED Provider Notes Encounter Department : [facility] EMERGENCY DEPARTMENTED Provider Notes by Jameson [...] weakness in his arm.He has had prior NH and history of hypertension. Patient denies any [...] take Zocor without problems,PHYSICAL EXAM:VITAL SIGNS:ED Triage PeiycnES42/26/17 2112067/89 jrXlKuoq14/26/17 052934.3 ?F (36.8 ?C)Heart Rate09/07/16 882920Soht81/26/17 513306EvH456/26/17 687526 %Yiinnn18/26/17 6554398 lb (86.183 kg)[place]ington Coma Scale Score09/07/16 930727FTS (Calculated)09/07/16 924563.6Constitutional: mild acute distress, Non-toxic appearanceHENT: Normocephalic, Atraumatic, [...] x 3,NIH Stroke ScaleInterval: BaselinePerson Administering Scale: Jameson Parkerbon [facility] stroke scale items in the order listed. [...] make aspecial effort).1a Level of consciousness:0=alert; keenly rslharcvuk8c.LOC questions: 0=Performs both tasks toslmwmxv4a.LOC commands:0=Performs both tasks correctly2. Best Gaze:0=normal3. Visual:0=No visual loss4.Facial Palsy:0=Normal symmetric rbthoalt4s. Motor left arm:0=No drift, limb holds 90 (or 45) degrees for full 10 wnlvpae3z. Motor right arm:0=No drift, limb holds 90 (or 45) degrees for full 10 akqqlsa9e.motor left le=No drift, limb holds 90 (or 45) degrees for full 10 mhkrnuy4b Motor right le=No drift, limb holds 90 (or 45) degrees for full 10 seconds7.Limb Ataxia:0=Absent8. Sensory:0=Normal; no sensory loss9.Best Language: 0=No aphasia, qmotrx96.Dysarthria:0=Normal 11.Extinction and Inattention:0=No jgscododwgq25.Distal motor function:0=NormalTotal: 0Skin: Warm, No rash, no [...] 8:13 AMXR-Chest PA AND LATNarrativeEXAM:XR-CHEST PA AND LATACCESSION:[id number] TE OF SERVICE: 09/07/2016 8:26 AMORDERING PROVIDER:JAMESON [...] - Abnormal; Notable for the following:MCV84.5 (*)85.0-99.0 nnQepbzLSH68.3 (*)28.4-33.4 pgFinalAll other components within normal limitsBASIC METABOLIC PANEL - Abnormal; Notable for the following:Wudeeyt943 (*)74-106 mg/dLFinalAll other components within normal limitsGLUCOSE POC RESULTS - Abnormal; Notable for the following:POC Tdgdwpj344 (*)74-106 mg/dLFinalAll other components within normal limitsNarrative:Point [...] criteria.POC GLUCOSE, BLOOD BY GLUCOSE MONITORING DEVICE (ACCUCHECK)EXTRA TUBE-SSTBP 168/89 mmHg Pulse 77 Temp(Src) 98.3 ?F (36.8 ?C) Resp 16 Ht 5' 11 (1.803 m) Wt 190 lb(86.183 kg) BMI 26.51 kg/m2 SpO2 99%FINAL IMPRESSION:AJL-5-UYMTD-10-CM 1.Left arm pgyxtiig029.0R20.0Electronic allysigned by: Jameson Sheridan, 09/07/2016Jameson Sheridan MD09/07/16916Jameson Sheridan MD09/07/16916 Normal [facility] EKG STANDARD 12 LEADon 09-07 Pulse (Heart Rate) RR Interval= 845 msP R Interval= 167 msQRSD Interval= 118 msQT Interval= 383 msQTc Interval= 417 msHeart Rate= 71 msP Darling= 47 degQRS Darling= -31 degT Wave Darling= 3 degI: 40 Darling= -47 degT: 40 Darling= -40 degST Darling= 61 degSinus rhythm Left axis deviation Electronically Signed by: Alberto Newman) 08-Sep-2016 07:49:38 Date and Time of Study: 2016-09-07 08:32:39 Normal [facility] HEMOGLOBIN A1Con 09-07-2016 Glucose mass conc 131 mg/dL Abnormal 68-126 [facility] Comment on above: Performed By: #### L AB320 ####[facility] [id number] [facility] [place] [address] [facility]vdBeTaylor [place] [phone]#### [id number] ####[facility] [id number] [address] BLVDBEAVER[place] [address] [facility] Hemoglobin A1c/Hemoglobin.total mass fraction (Bld) 6.2 % Abnormal 4.0-6.0 [facility] Comment on above: Performed By: #### L AB320 ####[facility] [id number] [place] [address] [phone]#### [id number] ####[facility] [id number] [address] Hemoglobin A1c/Hemoglobin.total mass fraction (Bld) Normal [facility] Comment on above: Result Comment: Ther apeutic goals for glycemic control:-Goal of therapy :< 7.0% ZiV8d-Nkjmwj suggested: >8.0% HbA1c Performed By: #### L AB320 ####[facility] [id number] [address] [place] [address]#### [id number] ####[facility] [id number] [address] History and Physicalon 09-07 History and Physical Encounter Departmen t: [facility] MED SURG WESTHANDP by Jailene Flores MD at 09/07/2016 9:30 AMAuthor: ANDRESSA Russellervice: Internal MedicineAuthor Type: PhysicianFiled: 09/07/2016 5:17 PMNote Time: 09/07/2016 9:30 AMNote Type: HANDPStatus: SignedEditor: Jailene Flores MD (Physician)History and Physical Patient Name: Janice ChandlerB: 1945MRN#: [id number] Room / Bed : ED 07/24 [facility]itily : [facility] Date of Service: 09/07/2016CSN: [id number] Admit Date: 09/07/2016 7:48 AM Attending Physician: [...] but would use IV Hydralazine 10 mg V9vnZUC for SBP > 160For further risk stratification, [...] no subcutaneous nodule palpatedPertinent Data:Last BMP Results:Recent CveuOuv95/26/17 1037FG960W8.4WD937RQ278DJU92 CREATININE1.21FDZ169*CALCIUM 9.2No results found for this or any previous visit.Last CBC w diff Results:Recent FmpkOor45/26/17 3757RJH4.3ULTWIFNJMW48.3HCT4 5.2BQW935XGC4.82QHAX94.5MCH2 8.3*RDW11.0BLSBZBCJOLN40.2MO NOCYTES6.2Last Liver Function Results:No results for input(s): [...] @ 71 bpmThis note was created using [employer] dictation softwareJailene Flores MD09/07/2016 @ 9:30 AM Normal [facility] LDL CHOLESTEROL, DIRECTon LDL CHOLESTEROL DIRECT 100 mg/dl Normal 0-100 [facility] Comment on above: Performed By: #### L AB320 ####[facility] CLIA [id number] [place] [address]VDBEAVERCR[place], [address] [phone]#### [id number] ####[facility] CLIA [id number] [place] [address]CR[place], [facility]31 [facility] LDL CHOLESTEROL, DIRECT Normal [facility] Comment on above: Result Comment: ATP III Classification of LDL, Total and HDL Cholesterol (mg/dl)LDL Cholesterol: <100 Optimal 100-129 Near optimal/above optimal 130-159 Borderline high 160-189 High =190 Very high Performed By: #### L AB320 ####[facility] CLIA [id number] [place] [address], [address] [phone]#### [id number] ####[facility] CLIA [id number] [address]BEAVERCRE, [address] LIPID PANELon 09-07-2016 Cholesterol 191 mg/dL Normal <=200 [facility] Comment on above: Performed By: #### L AB320 ####[facility] [id number] [place] [address]CR[place], [facility]31 [facility] AND [place] [address]vdBeavercreekSteven [place] [address]#### [id number] ####[facility] [id number] [place] [address], [facility]31 [facility] Cholesterol 36 mg/dL Abnormal 40-60 [facility] Comment on above: Performed By: #### L AB320 ####[facility] [id number] [place] [address], [facility]31 [facility] AND [place] [id number] [address]vdBeavercreWilliam [place] [address]#### [id number] ####[facility] [id number] [address], [facility]31 [facility] LDL Cholesterol Normal 0-99 [facility] Comment on above: Result Comment: LDL calculation is invalid because the triglyceride level is equal to or greater than 400 mg/dl. Performed By: #### L AB320 ####[facility] [id number] [place] [address], [facility]31 [facility] AND [place] [phone] [address]vdBeavercreekSteven [place] [address]#### [id number] ####[facility] [id number] [address], [facility]31 [facility] LIPID PANEL Normal [facility] Comment on above: Result Comment: ATP III Classification of LDL, Total and HDL Cholesterol (mg/dL)LDL Cholesterol: <100 Optimal 100-129 Near optimal/above optimal 130-159 Borderline high 160-189 High >=190 Very highTotal Cholesterol: <200 Desirable 200-239 Borderline high >=240 HighHDL Cholesterol: <40 Low >=60 High Performed By: #### L AB320 ####[facility] [id number] [place] [address] [facility]vdBeaverc[address], [place] [phone]#### [id number] ####[facility] [id number] [place] [address] [facility] Triglyceride 413 mg/dL Abnormal 0-149 [facility] Comment on above: Performed By: #### L AB320 ####[facility] [id number] [place] [address] [place] AND [place] [phone] [address]vdBeaverc[address], [place] [phone]#### [id number] ####[facility] [id number] [place] [address] [facility] VLDL CHOLESTEROL 83 mg/dL Abnormal 0-40 [facility] Comment on above: Performed By: #### L AB320 ####[facility] [id number] [place] [address] [place] [facility] [place] [phone] [address]vdBe[address], [place] [address]#### [id number] ####[facility]IA [id number] [place] [address] [place] MAGNESIUMon 09-07-2016 Magnesium 1.7 mg/dL Normal 1.5-2.3 [facility] Comment on above: Performed By: #### L AB320 ####[facility] [id number] [place] [address] [facility]ITALINDU [facility]vdBeaverc[address], [place] [phone]#### [id number] ####[facility] CLIA [id number] [address] MRI-HEAD WO CONTRASTon 09-07 MRI-HEAD WO [...] report was called to Dr. Dalila WANG [facility] IR MedSurg3.This dictation was created with voice recognition software. While attempts have been made to review the dictation as it is transcribed, on occasion the spoken word can be misinterpreted by the technology leading to omissions or inappropriate words, phrases or sentences.Electronically Signed by: Janice Mayorga MD, 09/07/2016 1:50 PM Normal [facility] PARTIAL THROMBOPLASTon 09-07 PARTIAL THROMBOPLASTIN TIME MECHANICAL 41.2 Seconds Abnormal 27.0-39.0 [facility] Comment on above: Performed By: #### L AB320 ####[facility] CLIA [id number] [place] [address], [address] [facility]Beavercre[phone]#### [id number] ####[facility] [id number] [address]BEAVER[address], [address] PROTIME-INRon 09-07-2016 INR Coag RelTime (Bld) Normal [facility] Comment on above: Result Comment: Cond ition and INR Therapeutic Range:Deep venous thrombosis 2.0-3.0Pulmonary embolism 2.0-3.0Acute myocardial infarction 2.0-3.0Atrial fibrillation 2.0-3.0Antiphospholipid syndrome (no other risk factors) 2.0-3.0Antiphospholipid syndrome with recurrent thromboembolism 2.5-3.0Bioprosthetic (tissue) valve 2.0-3.0Mechanical prosthetic valves 2.0-3.0 or 2.5-3.5 depending on valve type and location Performed By: #### L AB320 ####[facility] [id number] [place] [address], [address] AND [place] [phone] [address]Beavercre[phone]#### [id number] ####[facility] [id number] [address], [address] INR Coag RelTime (PPP) 1.1 {INR} Normal 0.8-1.1 [facility] Comment on above: Performed By: #### L AB320 ####[facility] [id number] [place] [address], [address] [facility]vdBeaverc[address], [place] [phone]#### [id number] ####[facility] [id number] [address]BE[address]ER[address], [address] Prothrombin time (PT) Coag time (PPP) 11.8 s Normal 9.3-12.3 [facility] Comment on above: Performed By: #### L AB320 ####[facility]IA [id number] [place] [address] [facility]vd[address], [place] [phone]#### [id number] ####[facility] [id number] [place] [address] [facility] INR Coag RelTime (Bld) Normal [facility] Comment on above: Result Comment: Cond ition and INR Therapeutic Range:Deep venous thrombosis 2.0-3.0Pulmonary embolism 2.0-3.0Acute myocardial infarction 2.0-3.0Atrial fibrillation 2.0-3.0Antiphospholipid syndrome (no other risk factors) 2.0-3.0Antiphospholipid syndrome with recurrent thromboembolism 2.5-3.0Bioprosthetic (tissue) valve 2.0-3.0Mechanical prosthetic valves 2.0-3.0 or 2.5-3.5 depending on valve type and location Performed By: #### L AB320 ####[facility] [id number] [place] [address], [facility]31 [facility]vdBeavercreThomas [place] [phone]#### [id number] ####[facility] [id number] [place] [address] [facility] INR Coag RelTime (PPP) 1.0 {INR} Normal 0.8-1.1 [facility] Comment on above: Performed By: #### L AB320 ####[facility] [id number] [place] [address], [facility]31 [facility]35[address]vdBeaverKathryn [place] [address]#### [id number] ####[facility] [id number] [address], [address] Prothrombin time (PT) Coag time (PPP) 11.3 s Normal 9.3-12.3 [facility] Comment on above: Performed By: #### L AB320 ####[facility] [id number] [place] [address], [address] AND [place] 2853135 [address]vd[address], [place] [address]#### [id number] ####[facility]ENTERIA [id number] [facility]ITALVDAVERASCENS[facility], [address] Progress Noteson 09-07-2016 Progress Notes Encounter Department : [facility] MED SURG WESTProgress Notes by Vickie Sanchez RN at 09/07/2016 2:04 PMAuthor: ANNE Aquinoervice: (none)Author Type: Registered NurseFiled: 09/07/2016 2:06 PMNote Time: 09/07/2016 2:04 PMNote Type: Progress NotesStatus: SignedEditor: Vickie Sanchez RN (Registered Nurse)Radiologist called regarding MRI report stating Multiple Right side acute stroke . Herminio, DO called and she stated May be embolic, consult cardiology . Dr. Dolan paged.Awaiting a return call.Vickie Sanchez Normal [facility] TROPONIN Ion 09-07-2016 Troponin I.cardiac mass conc ng/mL Normal 0.000-0.04 5 [facility] Comment on above: Performed By: #### L AB320 ####[facility] [id number] [place] [address], [address] AND [place] [address] [address], [place] [phone]#### [id number] ####[facility] [id number] [facility], [address] Troponin I.cardiac mass conc Normal [facility] Comment on above: Result Comment: Trop onin I 0.045-0.600 is abnormal but not clinically relevant. Please correlate with other clinical findings. Troponin I >0.600 is clinically relevant in accordance with WHO criteria. Performed By: #### L AB320 ####[facility] CLIA [id number] [place] [address] [facility] BlvdBeaverformerly [facility], [place] [address]#### [id number] ####[facility] CLIA [id number] [place] VDBEAVERASCENSION RIVER DISTRICT [facility], [address] TSHon 09-07-2016 Thyroid stimulating hormone (TSH) 0.705 uIU/mL Normal 0.358-3.74 0 [facility] Comment on above: Performed By: #### L AB320 ####[facility] CLIA [id number] [place] [address] [facility]35[address] PentNorthern Westchester HospitalBeaverKathryn [place]ille [address]#### [id number] ####[facility] CLIA [id number] [place] [address] [facility] URINALYSIS MICROSCOPIC ONLYo n 09-07-2016 AMORPHOUS CRYSTALS 2+ /lpf Abnormal Negative [facility] Comment on above: Performed By: #### L AB320 ####[facility] CLIA [id number] [place] [address] [facility]vdBeaverKathryn [place] [address]#### [id number] ####[facility] CLIA [id number] [place] [address] [facility] URINE MUCOUS 2+ /lpf Abnormal Negative [facility] Comment on above: Performed By: #### L AB320 ####[facility]IA [id number] [place] [address] [facility], [place] [phone]#### [id number] ####[facility] CLIA [id number] [place] [address] [place] URINE WHITE BLOOD CELLS 0-3 Normal 0-3 [facility] Comment on above: Performed By: #### L AB320 ####[facility] [id number] [place] [address] [facility], [place] [phone]#### [id number] ####[facility] [id number] [place] [address] [place] Urine, bacteria in sediment Trace Abnormal Negative [facility] Comment on above: Performed By: #### L AB320 ####[facility] [id number] [place] [address] [place] [facility] [place] [phone] [address], [address]#### [id number] ####[facility] [id number] [place] [address] [place] Urine, epithelial cells in sediment 0-3 Normal 0-3 [facility] Comment on above: Performed By: #### L AB320 ####[facility] [id number] [place] [address] [facility]OS[facility]ITALINDU AND [place] [address]3135 [address]vd[address], [place] [phone]#### [id number] ####[facility] [id number] [place] [address] [place] URINALYSIS W/REFLEX MICROSCO PYon 09-07-2016 BILIRUBIN, UA Negative Normal Negative [facility] Comment on above: Performed By: #### L AB320 ####[facility] CLIA [id number] [place] [address] [facility], [place] [phone]#### [id number] ####[facility] [id number] [place] [address] [place] BLOOD, UA Negative Normal Negative [facility] Comment on above: Performed By: #### L AB320 ####[facility]IA [id number] [place] [address] [facility], [place] [phone]#### [id number] ####[facility]IA [id number] [place] [address] [place] GLUCOSE, UA Negative Normal Negative [facility] Comment on above: Performed By: #### L [id number] ####[facility] [id number] [place] [address] [facility], [place] [phone]#### [id number] ####[facility] CLIA [id number] [place] [address] [place] KETONES, UA Negative Normal Negative [facility] Comment on above: Performed By: #### L AB320 ####[facility] [id number] [place] [address] [facility], [place] [phone]#### [id number] ####[facility] [id number] [place] [address] [place] LEUKOCYTES, UA Negative Normal Negative [facility] Comment on above: Performed By: #### L AB320 ####[facility] [id number] [place] [address], [facility]31 [facility], [phone]#### [id number] ####[facility] [place] [id number] [place] [address], [facility]31 [place] PH, UA 7.5 Normal 5.0-8.0 [facility] Comment on above: Performed By: #### L AB320 ####[facility] [id number] [place] [address], [facility]31 [place] [place] [phone], [phone]#### [id number] ####[facility] [id number] [place] [address], [facility]31 [place] PROTEIN, UA Negative Normal Negative [facility] Comment on above: Performed By: #### L AB320 ####[facility] [id number] [place] [address], [facility]31 [facility] [place] [id number], [phone]#### [id number] ####[facility] [id number] [place] [address] [place] SPECIFIC GRAVITY, UA 1.020 Normal 1.001-1 .03 5 [facility] Comment on above: Performed By: #### L AB320 ####[facility] [id number] [place] [address] [facility], [place] [phone]#### [id number] ####[facility] [id number] [place] [address] [place] Urine, appearance Slightly Cloudy Abnormal Clear [facility] Comment on above: Performed By: #### L AB320 ####[facility] [id number] [place] [address] [facility], [place] [phone]#### [id number] ####[facility] [id number] [place] [address] [place] Urine, color Yellow Normal Yellow [facility] Comment on above: Performed By: #### L AB320 ####[facility] [id number] [place] [address] [facility], [place] [phone]#### [id number] ####[facility] [id number] [place] [address] [place] Urine, nitrite presence Negative Normal Negative [facility] Comment on above: Performed By: #### L AB320 ####[facility] [id number] [place] [address] [facility], [place] [phone]#### [id number] ####[facility] [id number] [place] [address] [place] UROBILINOGEN, UA 0.2 EU/dL Normal 0.2-1.0 [facility] Comment on above: Performed By: #### L AB320 ####[facility] [id number] [place] [address] [facility] [place], [place] [phone]#### [id number] ####[facility] [id number] [place] [id number] [facility] VAS-CAROTID DOP BILAT 31982w n 09-07-2016 VAS-CAROTID DOP BILAT 86320 A result will not be generated for this exam.VAS-CAROTID DOP BILAT 95060Nplrbb for Exam: tia/cva. REASON FOR EXAM: tia/cvaDEMOGRAPHICS: [...] by: Bharat Jones MD, 09/07/2016 1:25 PM [facility] XR-CHEST PA AND LATon 2016 XR-CHEST PA AND LAT EXAM: XR-CHEST PA & LATACCESSION: [id number] OF SERVICE: 09/07/2016 8:26 AMORDERING PROVIDER:JAMESON SHERIDAN [...] by: Kay Lew DO, 09/07/2016 8:29 AM [facility] Progress Noteson 11-29-2015 Progress Notes Progress Notes by STACI De Los Santos at 11/29/2015 9:21 AMAuthor: ESTELLE Heathervice: (none)Author Type: Social WorkerFiled: 11/29/2015 9:24 AMNote Time: 11/29/2015 9:21 AMNote Type: Progress NotesStatus: SignedEditor: STACI Heath (Operations Assistant)SOCIAL WORK DISCHARGE SUMMARY NOTEName:Janice Neilcarol Date:11/29/2015MR#:[id number] B:1945Room #:R3323/H4157ZBpo/Sex:70 y.o. maleAdmit Date:11/25/2015Admitting:Same er ANDRESSA Floreservices: Discharge summaryAgency: None at this time.Patient Information patient presented with cerebral vascular accidentTransportation [facility] provided [facility] paperworkDischarge Plan patient to return home with no post acute needsAdditional Narrative: [facility] Discharge Summarieson 2015 Discharge Summaries Discharge Summaries by Rahul Phillips MD at 11/26/2015 3:05 PMAuthor: ANDRESSA Bachervice: Internal MedicineAuthor Type: PhysicianFiled: 11/26/2015 6:42 PMNote Time: 11/26/2015 3:05 PMNote Type: Discharge SummariesStatus: SignedEditor: Rahul Phillips MD (Physician)Name: Janice NeilcarolDate/Time of Admission: 11/25/2015 5:54 AMCSN: [id number] Provider: Rahul Phillips [facility]oom/Bed: R3323/W3622VVUQ: 1945 Age: 70 y.o.DISCHARGE SUMMARYDate of Admission: 11/25/2015Date of Discharge: 11/26/2015[facility] Left arm weakness, slurred speech, dizzinessConsultants: Dr. Mehta, neurologyProcedures: noneSignificant Tests during this Admission:Significant LabsRecent JpfjUus99/ 37297111/25/15 2475SNJ7.07.1YSUVDJFQJE84.41 5.6HCT45.346.8BTP502342YGO9. 275.66ITQN81.934.0MCH29.129. 3RDW13.113.0GUMDADNGITJ96 --UCVYZFIHO63 --Recent FnoxJgj26/14/16 5677BU339D2.3OU006OT927FOA78 CREATININE1.38QTA822*CALCIUM 8.6Radiological findings:Ct-angio Head W And/or Wo Con [...] large territory infarct. Dictated by: Rhona Bhatia(Resident) I, Carlos Ibanez DO, have reviewed the images [...] pulmonary process. Dictated by: Rhona Bhatia (Resident) I,Carlos Ibanez DO, have reviewed the images and agree with the above interpretation. ElectronicallySigned by: Carlos Ibanez DO, 11/25/2015 6:03 AMVas-carotid Dop Bilat [id number] IMPRESSION: 1-49% stenosis bilateral internal carotid arteries. 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 [facility], [place] [phone] [facility] Progress Noteson 11-26-2015 Progress Notes Progress Notes by Ra brando Hall OT at 11/26/2015 11:17 AMAuthor: SUNNY Stollervice: OT TreatmentAuthor Type: Occupational TherapistFiled: 11/26/2015 3:01 PMNote Time: 11/26/2015 11:17 AMNote Type: Progress NotesStatus: SignedEditor: Georgia Hall OT (Occupational Therapist)Occupational Therapy TreatmentAdmit date: 11/25/2015 Today's Date: 11/26/2015Patient Name/MR#: Janice Shultz [id number] Room: R3323/M0405ARlzcqvsau Diagnosis: CVA (cerebral vascular accident) [I63.9]Admitting Provider:Jailene [...] here visiting family, as pt is from [facility], when this occurred; pt andwife share [...] to LearningNoneCognitionHearing VisionMotivationReadinessEas lupe DistractedJudgmentInsightAwa renessPre-MorbidMental StatusLanguage barrierNon-Dutch SpeakingCommunicationBarrier Observations/Vitals: Pt supine in bed with [...] strength in LUE this datePt worked on [facility] activities this date; 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 filler 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 small objects fromtable top with increased [...] at waistToiletingDenied needADL Comments:MobilityIndMod-ISup CG/MINModMaxTotalNot Addressed this ztaskyjUdnpvqgGOjo-VuvFNzo-B upX pt up on chair at end [...] given to pt with numerous exercises trialedBalance:SittingStatic -RZmbmoln-FMbrzlmwdHtwhcn-XP ynamic-SPatient Summary:The patient continues to exhibit the [...] tasks within his environment: progressingDischarge Recommendation:HomeHome w/ Kxljtw74Mr Supervision/AssistHome Care TherapyInpt Rehab UnitSNF/ECFOP OTComments:D/C Equipment NeedsNoneShower pwrgo1-jv-7Tsk KitHospital BedStd WalkerFWWRollator / 4WWStd CaneQuad CaneW/C*Patient [...] Treatment Time: 38Timed Code Minutes : 38 Normal [facility] Progress Notes Progress Notes by STACI De Los Santos at 11/26/2015 2:51 PMAuthor: ESTELLE Heathervice: (none)Author Type: Social WorkerFiled: 11/26/2015 2:54 PMNote Time: 11/26/2015 2:51 PMNote Type: Progress NotesStatus: SignedEditor: STACI Heath (Operations Assistant)Social Service Ongoing CareServices: Discharge planningAgency: None at this time.Comments: reviewed chart, processed patient information in IDT meeting. Patient to return home withno post acute needs at this time. Patient to [place]. Care coordination tocontinue following this patient.STACI Newell 6-01-77Uujvvztgg plan: home with no post acute needs.Barriers: none at this time. Normal [facility] 2D COMPLETE ECHO (COLORFLOW, DOPPLER)on 11-25-2015 2D COMPLETE ECHO (COLORFLOW,DOPPLER) [place] [address] PH: [phone] ECHOCARDIOGRAM REPORT Pt. Name: JANICE SHULTZ : 1945 70 Date: 11/25/2015/3:39:53 PM years MR# [id number] Sex: M Blood Pressure: 153/90 Ht: 71 in BSA: 2.04 Location: 3323 Wt: 184 lb Technologist: Referring Physician: [id number] MARIA TERESA DENT Indications: Abnormal ECG Study [...] Pk Grad RA Pressure 5 mmHg RVSP [id number] . Pulmonary Artery: MR PISA Radius MR Alias Velocity MR VMax MR EROA TV Inflow E max TV Mn Grad PV PV Vmax PV Pk Grad PV Mn Grad COMPARISON TO PREVIOUS EXAMINATION: Final Normal [facility] BASIC METABOLIC PANELon 04- Anion gap 6 mmol/L Abnormal 02-25 [facility] Comment on above: Performed By: #### L AB15 ####[facility] CLIA [id number] [place] [address] [facility]#### [id number] ####[facility] [id number] [place] [address] [facility] [place] [phone] BUN (urea nitrogen) 13 mg/dL Normal 7-18 [facility] Comment on above: Performed By: #### L AB15 ####[facility] [id number] [place] [address] [place]#### [id number] ####[facility] CLIA [id number] [place] [address] [facility] [place], [place] [phone] Calcium 8.6 mg/dL Normal 8.5-10.1 [facility] Comment on above: Performed By: #### L AB15 ####[facility] [id number] [place] [address] [place]#### [id number] ####[facility] [id number] [place] [address] [facility], [place] [phone] Chloride 105 mmol/L Normal 98-107 [facility] Comment on above: Performed By: #### L AB15 ####[facility] [id number] [place] [address] [place]#### [id number] ####[facility] [id number] [place] [address] [facility] [place] [id number], [phone] CO2 31 mmol/L Normal 21-32 [facility] Comment on above: Performed By: #### L AB15 ####[facility] [id number] [place] [address] [place]#### [id number] ####[facility] [id number] [place] [address] [facility], [phone] Creatinine 1.12 mg/dL Normal 0.60-1.30 [facility] Comment on above: Performed By: #### L AB15 ####[facility] [id number] [place] [address] [place]#### [id number] ####[facility] [id number] [place] [address] [facility], [place] [phone] eGFR (black) mL/min/{1.73_m2} Normal >60 [facility] Comment on above: Result Comment: GFR is estimated using creatinine, age, gender, and race. Patient's values should be interpreted as a trend. For additional information: [email or web address] Performed By: #### L AB15 ####[facility] CLIA [id number] [place] [address] [place]#### [id number] ####[facility] CLIA [id number] [place] [address] [facility] [place] [phone] eGFR (non-black) mL/min/{1.73_m2} Normal >60 [facility] Comment on above: Result Comment: GFR is estimated using creatinine, age, gender, and race. Patient's values should be interpreted as a trend. For additional information: [email or web address] Performed By: #### L AB15 ####[facility] [id number] [place] [address] [place]#### [id number] ####[facility] [id number] [place] [address] [facility], [place] [phone] Glucose mass conc 112 mg/dL Abnormal 74-106 [facility] Comment on above: Performed By: #### L AB15 ####[facility] [id number] [place] [address] [place]#### [id number] ####[facility] [id number] [place] [address] [facility], [place] [phone] Potassium molar conc 3.8 mmol/L Normal 3.5-5.1 [facility] Comment on above: Performed By: #### L AB15 ####[facility] [id number] [place] [address] [place]#### [id number] ####[facility] [id number] [place] [address] [facility] [place] [phone] Sodium 142 mmol/L Normal 136-145 [facility] Comment on above: Performed By: #### L AB15 ####[facility] [id number] [place], [facility]31 [place]#### [id number] ####[facility] [id number] [place], [facility]31 [facility] [place] [phone] [address], [phone] CBC W/DIFFon 11-25-2015 Basophils/100 WBC Auto (Bld) 1 % Normal [facility] Comment on above: Performed By: #### L [id number] ####[facility] [id number] [place] [address] [facility] BSA (Body Surface Area) 0.0 K/uL Normal 0.0-0.1 [facility] Comment on above: Performed By: #### L [id number] ####[facility] [id number] [place] [address] [place] Eosinophils 5 10*3/uL Normal [facility] Comment on above: Performed By: #### L AB293 ####[facility] [id number] [place] [address] [place] Eosinophils 0.3 10*3/uL Normal 0.0-0.4 [facility] Comment on above: Performed By: #### L AB293 ####[facility] [id number] [place], [facility]31 [facility] Erythrocyte distribution width Auto Ratio (RBC) 13.1 % Normal 11.7-15.2 [facility] Comment on above: Performed By: #### L AB293 ####[facility] [id number] [place] [address] [facility] Erythrocytes (RBC) 5.27 10*6/uL Normal 4.30-5.86 [facility] Comment on above: Performed By: #### L AB293 ####[facility] [id number] [place], [facility]31 [facility] Hematocrit (HCT) 45.3 % Normal 39.0-51.5 [facility] Comment on above: Performed By: #### L AB293 ####[facility] [id number] [place], [facility]31 [facility] Hemoglobin mass conc (Bld) 15.4 g/dL Normal 13.1-17.6 [facility] Comment on above: Performed By: #### L AB293 ####[facility] [id number] [place], [facility]31 [facility] Lymphocytes 1.8 10*3/uL Normal 0.8-3.6 [facility] Comment on above: Performed By: #### L AB293 ####[facility] [id number] [place], [facility]31 [facility] Lymphocytes 30 10*3/uL Normal [facility] Comment on above: Performed By: #### L AB293 ####[facility] [id number] [place], [facility]31 [facility] MCH 29.1 pg Normal 28.4-33.4 [facility] Comment on above: Performed By: #### L AB293 ####[facility] [id number] [place] [address] [facility] MCHC mass conc (RBC) 33.9 g/dL Normal 31.1-37.0 [facility] Comment on above: Performed By: #### L [id number] ####[facility] CLIA [id number] [place] [address] [place] MCV 86.0 fL Normal 85.0-99.0 [facility] Comment on above: Performed By: #### L [id number] ####[facility] [id number] [place] [address] [place] Monocytes 10 10*3/uL Normal [facility] Comment on above: Performed By: #### L [id number] ####[facility] [id number] [place] [address] [place] Monocytes 0.6 10*3/uL Normal 0.3-0.9 [facility] Comment on above: Performed By: #### L AB293 ####[facility] CLIA [id number] [place] [address] [facility] Neutrophils 3.2 10*3/uL Normal 2.0-7.3 [facility] Comment on above: Performed By: #### L AB293 ####[facility] CLIA [id number] [place] [address] [facility] Neutrophils 54 10*3/uL Normal [facility] Comment on above: Performed By: #### L [id number] ####[facility] CLIA [id number] [place] [address] [place] Platelets 177 10*3/uL Normal 154-393 [facility] Comment on above: Performed By: #### L [id number] ####[facility] [id number] [place] [address] [place] WBC (Leukocytes) 6.0 10*3/uL Normal 4.0-10.5 [facility] Comment on above: Performed By: #### L [id number] ####[facility] [id number] [place], [address] CBC W/O DIFFon 11-25-2015 Erythrocyte distribution width Auto Ratio (RBC) 13.1 % Normal 11.7-15.2 [facility] Comment on above: Performed By: #### L [id number] ####[facility] [id number] [place], [address] Erythrocytes (RBC) 5.32 10*6/uL Normal 4.30-5.86 [facility] Comment on above: Performed By: #### L [id number] ####[facility] [id number] [place] [address], [address] Hematocrit (HCT) 46.0 % Normal 39.0-51.5 [facility] Comment on above: Performed By: #### L [id number] ####[facility] [id number] [place] [address], [address] Hemoglobin mass conc (Bld) 15.6 g/dL Normal 13.1-17.6 [facility] Comment on above: Performed By: #### L [id number] ####[facility] [id number] [place], [facility]31 [facility] MCH 29.3 pg Normal 28.4-33.4 [facility] Comment on above: Performed By: #### L [id number] ####[facility] [id number] [place] [address] [facility] MCHC mass conc (RBC) 34.0 g/dL Normal 31.1-37.0 [facility] Comment on above: Performed By: #### L [id number] ####[facility] [id number] [place], [facility]31 [facility] MCV 86.4 fL Normal 85.0-99.0 [facility] Comment on above: Performed By: #### L [id number] ####[facility] CLIA [id number] [address] Platelets 176 10*3/uL Normal 154-393 [facility] Comment on above: Performed By: #### L [id number] ####[facility] [id number] [address] WBC (Leukocytes) 7.4 10*3/uL Normal 4.0-10.5 [facility] Comment on above: Performed By: #### L [id number] ####[facility] CLIA [id number] [address]-ANGIO HEAD W AND/OR WO CO [...] by: Louis Mead D.O., 11/26/2015 6:28 AM [facility] CT-ANGIO NECK W AND/OR WO CO N [...] by: Louis Mead D.O., 11/26/2015 6:28 AM [facility] CT-HYPERACUTE HEAD WO CON ST HENNAon 11-25-2015 CT-HYPERACUTE HEAD WO CON STROKE PROCEDURE: [...] the above interpretation.Electronicall y Signed by: Carlos Ibaenz DO, 11/25/2015 6:06 AM [facility] Consultson 11-25-2015 Consults Consults by Chau anthony MD at 11/25/2015 3:09 PMAuthor: ANDRESSA Chaconervice: NeurologyAuthor Type: PhysicianFiled: 11/25/2015 5:04 PMNote Time: 11/25/2015 3:09 PMNote Type: ConsultsStatus: SignedEditor: Chau Mehta MD (Physician) Consult Orders: 1. IP Consult to Neurology [[id number]] ordered by Jailene Flores MD at 11/25/15 1102Neurointerventional Consult NoteMOBI[facility]ENTERPatient Name:Janice Shultz : 1945Subjective:Reason for consult: Stroke like gsodquwl18 y.o. -handed male [facility] department around 6 AMtoday with complaint [...] mgOralNIGHTLY AT BEDTIMEContinuous Infusions: -0.9 % sodium cgarvmaq251 mL/hr (11/25/15 1107)PRN Meds:.ALPRAZolam, hydrALAZINE, ondansetron OR [...] except as mentioned above.Physical Exam:BP: 153/90 mmHg (11/25 1127)Temp: 98 ?F (36.7 ?C) (11/25 1127)Heart Rate: 79 (11/25 1127)Resp: 18 (11/25 1127)SpO2: 96 % (11/25 1127)FiO2 (%): 28 % (11/24 0832)O2 Flow Rate (L/min): 2 L/min (11/24 0735)Cardiac (WDL): Within Defined Limits (11/24 628)Cardiac Rhythm: Normal sinus rhythm (11/24 628)Gen: AANDO x 4, NAD, cooperativeHEENT: NC/AT, EOMI, PERRL, mmm, no carotid bruits, neck supple, no meningeal signs;Heart: RRR, B5K9Shbmb: CTABExt: no edema, no calf tenderness b/lPsych: [...] Decreased with the left hand otherwise normal Qnbz-lv-Yxcn: no dysmetria b/l. Iuuraz-tg-Lela: Left upper extremity dysmetria.Gait and stance: Gait: [...] free to contact us.Chau Mehta MD, 11/25/2015 [facility] Consults Consults by Valarie Mendez RD at 11/25/2015 1:48 PMAuthor: Valarie Mendez RDService: NutritionAuthor Type: Registered DietitianFiled: 11/25/2015 1:48 PMNote Time: 11/25/2015 1:48 PMNote Type: ConsultsStatus: SignedEditor: Valarie Mendez RD (Registered Dietitian) Consult Orders: 1. IP Consult To Nutrition Care [[id number]] ordered by Jelena Sommer MD at 11/25/15 [...] any questions.Electronicallysign ed by: Valarie Mendez RD, 11/25/2015 1:48 PM [facility] ED Provider Noteson 11-25-19 16 ED Provider [...] at bedtime.ALLERGIESNo Known AllergiesPHYSICAL EXAMVITAL SIGNS:ED Triage LqfrngWL35/14/16 6676102/96 hvBbGphg57/14/16 079238.8 ?F (36.6 ?C)Heart Rate11/25/15 482503Uumc55/14/16 996051IfU916/14/16 5035795 %Weight--Gee Coma Scale Score11/25/15 729808AYC (Calculated)--Constitutional : Well developed, Well nourished, No [...] oriented x 3,GCS 15, NIH stroke scale bt8Sukdnqkpxox: Affect normal, Judgment normal, Mood normal.EKGEKG InterpretationInterpreted by: Kay JeanTime of EKRhythm: normal sinusRate: normalAxis: normalEctopy: noneConduction: normalST Segments: no acute changeT Waves: no acute changeQ Waves: noneClinical Impression: no acute changesComparison: None available at this timeLabs ReviewedBASIC METABOLIC PANEL - Abnormal; Notable for the following:Anion Gap6 (*)7-16 mmol/XZehrzWqdoeic155 (*)74-106 mg/dLFinalAll other components within normal limitsPARTIAL THROMBOPLAST - Abnormal; Notable for the following:PTT42.8 (*)27.0-39.0 SecondsFinalAll other components within normal limitsGLUCOSE POC RESULTS - Abnormal; Notable for the following:POC Cjqadbl772 (*)70-100 mg/dLFinalAll other components within normal limitsNarrative:Point [...] intact.ImpressionNo acute pulmonary process.Dictated by: Rhona Bhatia (Resident)Carlos Awan DO, have [...] acute large territory infarct.Dictated by: Rhona Bhatia (Resident)Lv, Carlos Ibanez DO, [...] the case in depth with the neurologist supervisor fabrication and they concur. Patient hasanelectrolyte abnormalities or signs of infection at this time. Patient was reexamined multipletimes here in the emergency department. Patient seems to be improving slightly. Patient will beadmitted to medical service with neurology consult and further observation and care. Patient andfamily understand and agree with this plan.The patient's scheduled substances prescription history was reviewed using the [place]AR[place] database.This patient wasn't found to have a prescription history that was concerning for drug abusediversion or aberrant behavior.FINAL EDFCUCEMKFNTW-5-JCUMM-10-CM1 .CVA (cerebral vascular accident)434.91I63.9I have personally provided 30 minutes of critical care time (excluding separately listedprocedures) through obtaining a history, examining the patient, reviewing relevant medical records,discussing care with family and/or other providers, performing multiple reassessments and directingcare.Electronically signed by: Kay Jean, 11/25/2015Kay Jean, DO11/25/15 0703 [facility] History and Physicalon 11-24 History and Physical HANDP by Jialene huber MD at 11/25/2015 10:54 AMAuthor: ANDRESSA Russellervice: Internal MedicineAuthor Type: PhysicianFiled: 11/25/2015 3:16 PMNote Time: 11/25/2015 10:54 AMNote Type: HANDPStatus: AddendumEditor: Jailene Flores MD (Physician)Related Notes:Original Note by Jailene Flores MD (Physician) filed at 11/25/2015 11:01 AMHistory and PhysicalASSESSMENT AND PLAN:1. TIA vs evolving stroke2. HTN3. HL4. Hx of NH in past5. Chest painPLAN:Patient came to hospital [...] at bedtime.ALLERGIESNo Known AllergiesPHYSICAL EXAMVITAL SIGNS:ED Triage BcojkgCK24/14/16 1197877/96 vdCfNxvi01/14/16 821245.8 ?F (36.6 ?C)Heart Rate11/25/15 096385Ybyt74/14/16 613554GaY454/14/16 6568343 %Bjbryq45/14/16 9047126 lb (83.462 kg)[place] Coma Scale Score11/25/15 368634JET (Calculated)11/25/15 735791.7Gen: NAD, looks appropriate for ageEye: No Discharge,ESTHER, [...] sensory call. Lt. 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,Cranial Nerve II-XII grosslyintact and symmetricalPsychs: Appropriate [...] Abnormal; Notable for the following:Anion Gap6 (*)7-16 mmol/ZOyszuYgrnxnr986 (*)74-106 mg/dLFinalAll other components within normal limitsPARTIAL THROMBOPLAST - Abnormal; Notable for the following:PTT42.8 (*)27.0-39.0 SecondsFinalAll other components within normal limitsGLUCOSE POC RESULTS - Abnormal; Notable for the following:POC Zmtitgi600 (*)70-100 mg/dLFinalAll other components within normal limitsNarrative:Point [...] ResultNo acute pulmonary process.Dictated by: Rhona Bhatia (Resident)I, Carlos Ibanez DO, have reviewed the images and agree with the above interpretation.Electronicall y Signed by: Carlos Ibanez DO, 11/25/2015 6:03 AMVAS-CAROTID DOP BILAT 58331 (Results Pending)I have personally reviewed all imaging and agree with the read(s) as outlined above.Jailene Flores MD11/25/2015 @ 10:54 AM [facility] MRI-HEAD WO CONTRASTon 11-24 MRI-HEAD WO CONTRAST [...] Shon Cerda M.D., 11/25/2015 9:10 AM Normal [facility] PARTIAL THROMBOPLASTon 11-24 PARTIAL THROMBOPLASTIN TIME MECHANICAL 42.8 Seconds Abnormal 27.0-39.0 [facility] Comment on above: Performed By: #### L AB320 ####[facility] [id number] [address]Beaver[phone]#### [id number] ####[facility] [id number] [address] PROTIME-INRon 11-25-2015 INR Coag RelTime (PPP) 1.0 {INR} Normal 0.9-1.2 [facility] Comment on above: Performed By: #### L AB320 ####[facility] CLIA [id number] [address] BlvdBe[address]cre[phone]#### [id number] ####[facility] [id number] [place] [address] [facility] Prothrombin time (PT) Coag time (PPP) 11.1 s Normal 9.3-12.3 [facility] Comment on above: Performed By: #### L AB320 ####[facility] [id number] [address], [facility]31 [facility]vd[address]averc[address], [phone]#### [id number] ####[facility] [id number] [place] [address], [facility]31 [facility] INR Coag RelTime (Bld) Normal [facility] Comment on above: Result Comment: Cond ition and INR Therapeutic Range:Deep venous thrombosis 2.0-3.0Pulmonary embolism 2.0-3.0Acute myocardial infarction 2.0-3.0Atrial fibrillation 2.0-3.0Antiphospholipid syndrome (no other risk factors) 2.0-3.0Antiphospholipid syndrome with recurrent thromboembolism 2.5-3.0Bioprosthetic (tissue) valve 2.0-3.0Mechanical prosthetic valves 2.0-3.0 or 2.5-3.5 depending on valve type and location Performed By: #### L AB320 ####[facility] [id number] [place] [address], [facility]31 [facility]vd[address], [place] [phone]#### [id number] ####[facility] [id number] [address], [address] Progress Noteson 11-25-2015 Progress Notes Progress Notes by JASPER Torrez at 11/25/2015 4:23 PMAuthor: JASPER DoService: CLINICAL PSYCHOLOGIST PRIVATE PRACTICE EvaluationAuthor Type: Speech and LanguagePathologistFiled: 11/25/2015 4:38 PMNote Time: 11/25/2015 4:23 PMNote Type: Progress NotesStatus: AddendumEditor: Carrie Macias, JASPER (Speech and Language Pathologist)Related Notes:Original Note by Carrie Macias, JASPER (Speech and Language Pathologist) filedat 11/25/2015 4:37 PMRehab MedicineSpeech Therapy EvaluationAdmit date: 11/25/2015 Today's Date: 11/25/2015Patient Name/MR#: Janice Shultz [id number]:5' 11 (1.803 m) Weight: 184 lb (83.462 kg)Current Room: [address]EBfsjypvbq Diagnosis: CVA (cerebral vascular accident) [I63.9]Admitting Provider:NARCISO [...] here visiting family, as pt is from [facility], when this occurred; pt andwife share [...] , and it's better now .Pain Assessment: 0 Pain Location: n/aTherapist Pain Intervention: no intervention [...] restrictedPragmatics: WFL; pt appropriately interacted with this CLINICAL PSYCHOLOGIST PRIVATE PRACTICE, made eye contact, appeared tounderstand body gestures [...] this date.Cognition: WFL; demonstrated appropriate short and computer terminal operator memory recall on all tasksadministered. Demonstrated simple and complex problem solving in 5/5 trials. Demonstratedappropriate reasoning in 3/3 trials, abstract reasoning 3/3 trials, and categorization in 4/4trials.Assessment summary/severity: Patient presents with functional expressive/receptive andcognitive-linguistic skills upon assessment this date. Patient oriented appropriately, able to makewants and needs known. Attention, simple and moderately complex problem solving, immediate and residential recall appropriate on all tasks completed this [...] and patient working towards planned discharge:HomeHome w/ Lhnmuo74Dc Supervision/AssistHome Care TherapyInpt Rehab UnitSNF/ECFOP SLPPlan: (as discussed with patient/family and agreed upon)The CLINICAL PSYCHOLOGIST PRIVATE PRACTICE Rehab Plan will consist of, but not limited to the following:AphasiaCog/Linguis ticCommunication/Language TherapyFacial e-stimVideostrobeDysarthriaA praxiaVoice D/C skilled CLINICAL PSYCHOLOGIST PRIVATE PRACTICE services as the patient is at pre-morbid baselineThank you for allowing me to participate in the care of this patient.Carrie Macias MA CCC-SLPTime In: 1603 Time Out: 1622Total Treatment Time: 19 minutes [facility] Progress Notes Progress Notes by JASPER Torrez at 11/25/2015 3:58 PMAuthor: JASPER DoSerjve: (none)Author Type: Speech and Language PathologistFiled: 11/25/2015 4:00 PMNote Time: 11/25/2015 3:58 PMNote Type: Progress NotesStatus: SignedEditor: JASPER Do (Speech and Language Pathologist)[facility] Medicine and RehabilitationAdmit date: 11/25/2015 Today's Date: 11/25/2015Patient Name/MR#: Janice Shultz [id number] was attempted for at 1544 for an initial speech evaluation.Therapy was not completed secondary to pt currently with lidar technician in room.Will reattempt as appropriate.Thank you for involving me in the care of this patient.Carrie Macias MA CCC-CLINICAL PSYCHOLOGIST PRIVATE PRACTICE [facility] Progress Notes Progress Notes by JASPER Naranjo ra at 11/25/2015 10:23 AMAuthor: Shakila Rebolledovice: (none)Author Type: Speech and Language PathologistFiled: 11/25/2015 11:32 AMNote Time: 11/25/2015 10:23 AMNote Type: Progress NotesStatus: SignedEditor: JASPER Rebolledo (Speech and Language Pathologist)[facility] Medicine and RehabilitationAdmit date: 11/25/2015 Today's Date: 11/25/2015Patient Name/MR#: Janice Shultz [id number] Speech Evaluation Attempt:Speech -Date Initial Eval Attempted: 11/24/peech -Time Initial Eval Attempted: 1023Speech -Reason Eval Not Completed: Patient Unavailable, Other (comment)Comments: Patient working with PT/OT.Speech evaluation will be reattempted as appropriate.Thank you for involving me in the care of this patient.Maria C Peck MA, CCC-CLINICAL PSYCHOLOGIST PRIVATE PRACTICE [facility] Progress Notes Progress Notes by STACI Nichole at 11/25/2015 10:16 AMAuthor: ESTELLE Matamoroservice: (none)Author Type: Social WorkerFiled: 11/25/2015 10:22 AMNote Time: 11/25/2015 10:16 AMNote Type: Progress NotesStatus: SignedEditor: STACI Matamoros (Operations Assistant)SOCIAL WORK INITIAL ASSESSMENTName:Janice Shultz Date:11/25/2015MR#:[id number] B:[id number] #:R3323/D8077FGqf/Sex:70 y.o. maleAdmit Date:11/25/2015Admitting:Same er ANDRESSA Floreservices:Discharge planningAgency:noneReferral [...] his daughter and grandchildren. He usually resides [place], [place] with his and is fully independent. Discussed with patient services available bydischarge planning. The patient denied any need for services from discharge planning. Social workto continue to follow. CLARA Matamoros, INTEGRATED LOGISTICS PROGRAMS DIRECTOR Normal [facility] REPEAT TROPONIN 120 MINUTES FROM FIRST DRAWon 11-25-2015 Troponin I.cardiac mass conc ng/mL Normal 0.000-0.[address] [place] [address] Comment on above: Performed By: #### L [id number] ####[facility] CLIA [id number] [address] Troponin I.cardiac mass conc Normal [facility] Comment on above: Result Comment: Trop onin I 0.045-0.600 is abnormal but not clinically relevant. Please correlate with other clinical findings. Troponin I >0.600 is clinically relevant in accordance with WHO criteria. Performed By: #### L AB293 ####[facility] CLIA [id number] [address] TROPONIN Ion 11-25-2015 Troponin I.cardiac mass conc ng/mL Normal 0.000-0.[address] [place] [address] Comment on above: Performed By: #### L [id number] ####[facility] [id number] [place] [address] [facility], [phone] Troponin I.cardiac mass conc Normal [facility] Comment on above: Result Comment: Trop onin I 0.045-0.600 is abnormal but not clinically relevant. Please correlate with other clinical findings. Troponin I >0.600 is clinically relevant in accordance with WHO criteria. Performed By: #### L [id number] ####[facility] [id number] [place] [address] [facility] [place] [id number], [phone] Performed By: #### L AB15 ####[facility] [id number] [place] [address] [place]#### [id number] ####[facility] [id number] [place] [address] [facility], [phone] Troponin I.cardiac mass conc ng/mL Normal 0.000-0.[address] [place] [address] Comment on above: Performed By: #### L AB15 ####[facility] CLIA [id number] [place] [address] [place]#### [id number] ####[facility] [id number] [place] [address] [facility], [phone] URINALYSIS W/REFLEX MICROSCO PYon 11-25-2015 BILIRUBIN, UA Negative Normal Negative [facility] Comment on above: Performed By: #### L AB347 ####[facility] CLIA [id number] [place] [address] [place] BLOOD, UA Negative Normal Negative [facility] Comment on above: Performed By: #### L [id number] ####[facility] CLIA [id number] [place] [address] [place] GLUCOSE, UA Negative Normal Negative [facility] Comment on above: Performed By: #### L AB347 ####[facility] CLIA [id number] [place] [address] [place] KETONES, UA Negative Normal Negative [facility] Comment on above: Performed By: #### L AB347 ####[facility] CLIA [id number] [place] [address] [place] LEUKOCYTES, UA Negative Normal Negative [facility] Comment on above: Performed By: #### L [id number] ####[facility] CLIA [id number] [place] [address] [place] PH, UA 6.5 Normal 5.0-8.0 [facility] Comment on above: Performed By: #### L [id number] ####[facility] CLIA [id number] [place] [address] [place] PROTEIN, UA Negative Normal Negative [facility] Comment on above: Performed By: #### L [id number] ####[facility] CLIA [id number] [place] [address] [place] SPECIFIC GRAVITY, UA 1.025 Normal 1.001-1 .03 5 [facility] Comment on above: Performed By: #### L [id number] ####[facility] CLIA [id number] [place] [address] [place] Urine, appearance Clear Normal Clear [facility] Comment on above: Performed By: #### L AB347 ####[facility] CLIA [id number] [place] [address] [place] Urine, color Yellow Normal Yellow [facility] Comment on above: Performed By: #### L AB347 ####[facility] CLIA [id number] [place] [address] [facility] Urine, nitrite presence Negative Normal Negative [facility] Comment on above: Performed By: #### L AB347 ####[facility] CLIA [id number] [place] [address] [place] UROBILINOGEN, UA 0.2 EU/dL Normal 0.2-1.0 [facility] Comment on above: Performed By: #### L [id number] ####[facility] CLIA [id number] [facility] [address] [facility] VAS-CAROTID DOP BILAT 58131m n 11-25-2015 VAS-CAROTID DOP BILAT 60186 A result will not be generated for [...] phrases or sentences.Electronically Signed by: Patel Villatoro DO 11/25/2015 11:24 AM [facility] XR-CHEST PORTABLE Kiana XR-CHEST PORTABLE STAT XR-CHEST [...] by: Carlos Ibanez DO, 11/25/2015 6:03 AM [facility] Vital Signs Date Time Vital Sign Value Performing Clinician Facility 10-24-2023 10:040 Body height 180.3 cm Lake Evangelista DO Work Phone: [facility] 10-24-2023 10:26-040 Body mass index (BMI) [Ratio] 25.24 kg/m2 Lake Evangelista DO Work Phone: [facility] 10-24-2023 10:040 Body weight 82.1 kg Lake Evangelista DO Work Phone: [facility] 10-24-2023 10:26-040 Diastolic blood pressure 78 mm[Hg] Lake Evangelista DO Work Phone: [facility] 10-24-2023 10:26-040 Heart rate 74 /min Lake Evangelista DO Work Phone: [facility] 10-24-2023 10:26-040 Systolic blood pressure 118 mm[Hg] Lake Evangelista DO Work Phone: [facility] 10-22-2023 14:25-040 Body height 177.8 cm [facility]es [facility] 10-22-2023 14:25-0400 Body mass index (BMI) [Ratio] 25.83 kg/m2 Sherif Paredes MD Work Phone: [facility] 10-22-2023 14:25-0400 Body weight 81.65 kg Sherif Paredes MD Work Phone: [facility] 10-22-2023 14:25-0400 Diastolic blood pressure 70 mm[Hg] Sherif Paredes MD Work Phone: [facility] 10-22-2023 14:25-0400 Heart rate 60 /min Sherif Paredes MD Work Phone: [facility] 10-22-2023 14:25-0400 Respiratory rate 16 /min Sherif Paredes MD Work Phone: [facility] 10-22-2023 14:25-0400 Systolic blood pressure 118 mm[Hg] Sherif Paredes MD Work Phone: [facility] 10-04-2023 08:29-0500 Diastolic blood pressure 70 mm[Hg] MD Sherif Paredes Work Phone: [facility] 10-04-2023 08:29-0500 Systolic blood pressure 120 mm[Hg] MD Sherif Paredes Work Phone: [facility] 10-04-2023 04:52-0500 Heart rate 75 /min MD Sherif Paredes Work Phone: [facility] 10-04-2023 04:44-0500 Body temperature 98 [degF] MD Sherif Paredes Work Phone: [facility] 10-04-2023 04:44-0500 Respiratory rate 20 /min MD Sherif Paredes Work Phone: [facility] 10-04-2023 04:44-0500 SaO2% (BldA) [Mass fraction] 94 % MD Sherif Paredes Work Phone: [facility] 09-30-2023 05:34-0500 Body weight 79.8 kg MD Sherif Paredes Work Phone: [facility] 09-26-2023 09:35-0500 Body height 180.34 cm MD Sherif Paredes Work Phone: [facility] 12-12-2022 14:00-0400 Body height 180.34 cm Trinh Bailey Other [employer] Other 12-12-2022 14:00-0400 Body mass index (BMI) [Ratio] 25.66 kg/m2 Trinh Bailey Other [employer] Other 12-12-2022 14:00-0400 Body temperature 97.3 [degF] Trinh Bailey Other [employer] Other 12-12-2022 14:00-0400 Body weight 83.46 kg Trinh Bailey Other [employer] Other 12-12-2022 14:00-0400 Diastolic blood pressure 82 mm[Hg] Trinh Bailey Other [employer] Other 12-12-2022 14:00-0400 SaO2% (BldA) [Mass fraction] 93 % Trinh Bailey Other [employer] Other 12-12-2022 14:00-0400 Systolic blood pressure 124 mm[Hg] Trinh Bailey Other [employer] Other 03-29-2022 10:28-0400 Body height 180.34 cm Sherif Lofton Defrance Work Phone: [facility] DO Work Phone: 03-29-2022 10:28-0400 Body mass index (BMI) [Ratio] 26.5 kg/m2 Sherif Lofton Defrance Work Phone: [facility] DO Work Phone: 03-29-2022 10:28-0400 Body surface area Derived from formula 2.06 m2 Sherif Lofton Defrance Work Phone: [facility] DO Work Phone: 03-29-2022 10:28-0400 Body weight 86.18 kg Sherif Lofton Defrance Work Phone: [facility] 250 DO Work Phone: 03-29-2022 10:28-0400 Diastolic blood pressure 76 mm[Hg] Sherif Lofton Defrance Work Phone: [facility] 250 DO Work Phone: 03-29-2022 10:28-0400 Heart rate 60 /min Sherif Lofton Defrance Work Phone: [facility] 250 DO Work Phone: 03-29-2022 10:28-0400 Systolic blood pressure 124 mm[Hg] Sherif Lofton Defrance Work Phone: [facility] 250 DO Work Phone: 12-06-2021 13:15-0400 Body height 180.34 cm Trinh Estherlm Other [employer] Other 12-06-2021 13:15-0400 Body mass index (BMI) [Ratio] 25.66 kg/m2 Trinh Bailey Other [employer] Other 12-06-2021 13:15-0400 Body weight 83.46 kg Trinh Bailey Other [employer] Other 12-06-2021 13:15-0400 Diastolic blood pressure 72 mm[Hg] Trinh Bailey Other [employer] Other 12-06-2021 13:15-0400 SaO2% (BldA) [Mass fraction] 97 % Trinh Bailey Other [employer] Other 12-06-2021 13:15-0400 Systolic blood pressure 138 mm[Hg] Trinh Bailey Other [employer] Other Encounters Encounter Date Encounter Type Care Provider Facility Start: 10-24-2023 End: 10-24-2023 Office outpatient visit 40 minutes Lake Evangelista DO Work Phone: [facility] Comment on above: 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, unspecified vessel or lesion type (CMS/HCC); Cerebrovascular accident (CVA), unspecified mechanism (CMS/HCC); History of PTCA 2; Hyperlipidemia, unspecified hyperlipidemia type; Vertigo as late effect of stroke; 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) Start: 10-22-2023 End: 10-22-2023 ambulatory SHERIF PAREDES [facility] Start: 10-22-2023 End: 10-22-2023 Transitional care manage srvc 14 day discharge Sheirf Paredes MD [facility] Comment on above: Cerebrovascular acci dent (CVA), unspecified mechanism (CMS- HCC) (Primary Dx); Lacunar infarction (CMS-HCC); 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); Primary hypertension; Left arm numbness Start: 10-05-2023 Telephone encounter Eri guadarrama RN Work Phone: [facility] Comment on above: Transition Of Care Start: 10-03-2023 Non-patient / Non-visit MD Eric Paredes Work Phone: [facility] Physician [facility] Work Phone: Start: 10-03-2023 Non-patient / Non-visit MD Eric Paredes Work Phone: [facility] Physician [facility] Work Phone: Start: 09-26-2023 Orders Only [facility]lam[facility] Comment on above: 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 ([facility]) (Primary Dx); Other cerebrovascular vasospasm and vasoconstriction Start: 09-26-2023 Non-patient / Non-visit MD Eric Paredes Work Phone: [facility] Physician [facility] Work Phone: Start: 09-25-2023 End: 10-04-2023 Evaluation and management of inpatient Sherif Paredes Facility:[facility] Start: 09-25-2023 End: 10-04-2023 Evaluation and management of inpatient MD Sherif Paredes Work Phone: [facility] Work Phone: Start: 09-20-2023 End: 09-25-2023 Evaluation and management of inpatient [facility] Start: 09-20-2023 End: 09-25-2023 Evaluation and management of inpatient [facility] Start: 09-20-2023 ambulatory SHERIF PAREDES [facility] Start: 09-20-2023 End: 09-25-2023 Evaluation and management of inpatient [facility] Start: 05-04-[address] [place] Facility: Start: 12-12-2022 End: 12-12-2022 ambulatory Trinh Bailey [facility] Other Start: 12-12-2022 Patient encounter procedure Trinh jeter [facility] Vascular Surgery Start: 11-24-2022 Rx Renewal Sherif caballero [facility] Work Phone: Start: 11-20-2022 Telephone encounter Sherif Avendano Work Phone: [facility] Work Phone: Start: 09-12-2022 Rx Renewal Sherif Lofton Defguerita ce Work Phone: [facility] 250 DO Work Phone: Start: 04-24-2022 End: 04-24-[address] CAITIE PITTS Facility:H1 Start: 04-20-2022 Rx Renewal Sherif Lofton Defran ce Work Phone: [facility] 250 DO Work Phone: Start: 03-29-2022 Office outpatient vi sit 15 minutes Sherif Lofton Defrance Work Phone: [facility] 250 DO Work Phone: Start: 02-23-2022 Rx Renewal Sherif Lofton Defguerita ce Work Phone: [facility] 250 DO Work Phone: Start: 02-04-2022 End: 02-04-[address] EUGENE PICKETT Facility:H1 Start: 12-06-2021 End: 12-06-2021 ambulatory Trinh Bailey Other [facility] Other Start: 12-06-2021 Follow-up encounter Trinh Balderas [facility] Start: 09-13-2021 End: 09-13-[address] KENY MUELLER Facility:H1 Start: 05-17-2021 Chart Update Sherif Rodas ce Work Phone: [facility] 250 DO Work Phone: Start: 05-17-2021 Patient encounter procedure Da vid T Defrance Work Phone: [facility] [place] Work Phone: Start: 03-26-2018 Patient encounter PROVIDER UNKNOWN F acility:[id number] Start: 01-23-2018 End: 01-23-2018 Emergency department patient visit PROVIDER NOT IN [facility] Start: 09-07-2016 End: 01-27-2017 Evaluation and management of inpatient JAMESON SHERIDAN [facility] Start: 11-25-2015 End: 11-26-2015 Evaluation and management of inpatient KAY JEAN [facility] Procedures Date Procedure Procedure Detail Performing Clinician Start: 10-22-2023 Adult depression screening assessment Sherif Paredes MD Work Phone: Start: 10-12-2023 History of carotid endarterectomy H/O carotid endarterectomy [place] Evangelista DO Work Phone: Start: 10-12-2023 History of percutane ous transluminal coronary angioplasty History of PTCA 2 [place] Evangelista DO Work Phone: Start: 10-01-2023 CT of head without contrast MD Sherif Paredes Work Phone: Start: 09-27-2023 CT of head without contrast MD Sherif Paredes Work Phone: Start: 09-20-2023 Adult depression screening assessment Anel Llamas RN Angioplasty of carot id artery Sherif Paredes Work Phone: Hernia repair Sherif caballero Work Phone: History of carotid endarterectomy H/O carotid endarterectomy Sherif Paredes Work Phone: History of percutane ous transluminal coronary angioplasty History of PTCA 2 [place] Evangelista DO Work Phone: Percutaneous transluminal coronary angioplasty Sherif Paredes Work Phone: Procedure on back Sherif Avendano Work Phone: NEGATED: Highlighted row has not occurred! Total colonoscopy Sherif Paredes Work Phone: Plan of Treatment Date Care Activity Detail Author Start: 10-21-2024 Adult BMI Screening Adult BMI Screen ing [facility] Start: 10-21-2024 Depression Screening Depression Scre [facility] Start: 10-21-2024 Fall Risk Screening Fall Risk Screen ing [facility] Start: 10-21-2024 Tobacco Screening Tobacco Screening [facility] Start: 09-24-2024 Adult BMI Screening Adult BMI Screen ing [facility] Start: 09-20-2024 Depression Screening Depression Scre ening [facility] Start: 09-20-2024 Tobacco Screening Tobacco Screening [facility] Start: 05-01-2024 End: 05-01-2024 Patient encounter procedure 05/01/2024 11:00 AM EDT Office Visit [facility] [address] [place] [phone] Lake Evangelista DO [address] [place] [address] [facility] Start: 11-08-2023 End: 11-08-2023 Patient encounter procedure 11/08/2023 2:00 PM EDT Office Visit [facility] [address] [place] [phone] Gopal Nova MD [address] [place] [address], [id number] [place], [place] [id number] [facility] Start: 10-24-2023 End: 10-23-2024 C reactive protein [Mass/volume] in Serum or Plasma by High sensitivity method C-Reactive Protein, High Sensitivity Lab Routine Atherosclerosis of coronary artery of [place] heart with angina pectoris, unspecified vessel or lesion type (CMS/HCC) Cerebrovascular accident (CVA), unspecified mechanism (CMS/HCC) History of PTCA 2 Expected: 10/24/2023 (Approximate), Expires: 10/23/[address] [facility] Service Area Work Phone: Comment on above: Expected: 10/24/2023 (Approximate), Expires: 10/23/2024 Start: 10-24-2023 End: 10-23-2024 Holter monitor study Holter Or Event Diplomatic Officer Cardiac Services Routine Atherosclerosis of coronary artery of [place] heart with angina pectoris, unspecified vessel or lesion type (CMS/HCC) Cerebrovascular accident (CVA), unspecified mechanism (CMS/HCC) History of PTCA 2 Vertigo as late effect of stroke Expected: 10/24/2023, Expires: 10/23/2024 [facility] Work Phone: Comment on above: Expected: 10/24/2023 , Expires: 10/23/2024 Start: 10-24-2023 End: 10-23-2024 Lipid 1996 panel - Serum or Plasma Lipid Panel Lab Routine Hyperlipidemia, unspecified hyperlipidemia type Expected: 10/24/2023 (Approximate), Expires: 10/23/2024 [facility] Work Phone: Comment on above: Expected: 10/24/2023 (Approximate), Expires: 10/23/2024 Start: 10-24-2023 End: 10-23-2025 Heart Transthoracic Transthoracic Echo Complete Echocardiography Routine Atherosclerosis of coronary artery of [place] heart with angina pectoris, unspecified vessel or lesion type (CMS/HCC) Cerebrovascular accident (CVA), unspecified mechanism (CMS/HCC) History of PTCA 2 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) Expected: 10/24/2023 (Approximate), Expires: 10/23/2025 [facility] Work Phone: Comment on above: Expected: 10/24/2023 (Approximate), Expires: 10/23/2025 Start: 10-22-2023 End: 10-22-2023 Patient encounter procedure 10/22/2023 2:15 PM EDT Office Visit [facility] [address] [facility] [place] [address] Sherif Paredes MD [address] [place], [place] [phone] [facility] Start: 10-16-2023 End: 10-16-2023 Patient encounter procedure 10/16/2023 10:15 AM EST Office Visit [facility] [address] [place] [address] Sherif Paredes MD [address] [place], [place] [id number] [facility] Start: 10-04-2023 [facility] Start: 09-26-2023 [facility] Start: 09-26-2023 End: 09-26-2024 Event Monitor (In Office) [employer] Work Phone: Comment on above: Expected: 09/26/2023 , Expires: 09/26/2024 Start: 09-25-2023 Hospital admission [facility] Start: 09-25-2023 Referral to clinical worship leader [facility] Start: 07-23-2023 COVID-19 Vaccine ( season) COVID-19 Vaccine () [facility] Start: 04-26-2023 FUV, Provider: [place] Evangeilsta, Status: Pen, Time: 10:30 AM FUV, Provider: [place] Evangelista, Status: Pen, Time: 10:30 AM [facility] DO Work Phone: Start: 03-22-2023 FUV, Provider: [place] Evangelista, Status: Pen, Time: 11:20 AM FUV, Provider: [place]ista, Status: Pen, Time: 11:20 AM [facility] 250 DO Work Phone: Start: 03-29-2022 FUV, Provider: [place] Evangelista, Status: Pen, Time: 10:30 AM FUV, Provider: [place] Evangelista, Status: Pen, Time: 10:30 AM [facility] 250 DO Work Phone: Start: 12-20-2021 FUV, Provider: [place] Evangelista, Status: Pen, Time: 11:15 AM FUV, Provider: [place] Evangelista, Status: Pen, Time: 11:15 AM [facility] 250 DO Work Phone: Start: 10-15-2019 Medicare Annual Wellness Visit Medicare Annual Wellness Visit [facility] Start: 2012 Fall Risk Screening Fall Risk Screen ing [employer] Start: 1997 Zoster Vaccines (1 o f 2) Zoster Vaccines (1 of 2) [facility] Start: 1969 DTaP/Tdap/Td Vaccine s (1 - Tdap) DTaP/Tdap/Td Vaccines (1 - Tdap) [facility] Start: 1966 DTaP,Tdap and Td Vaccines (1 - Tdap) DTaP,Tdap and Td Vaccines (1 - Tdap) [facility] Start: 1965 Adult BMI Follow Up Plan Adult BMI Follow Up Plan [facility] Start: 1965 Diabetes mellitus screening Diabetes Screening [facility] Start: 1965 [facility]: [facility] Lipid panel Lipid Panel [facility] Start: 1947 Medicare Annual Wellness Visit Medicare Annual Wellness Visit (AWV) [facility] Patient Education Stroke (DC) Le ft-Side Stroke (DC) [facility] Work Phone: Patient referral [facility] Work Phone: Immunizations Immunization Date Immunization Notes Care Provider Fa cili 05-28-2023 Covid-19, Mrna, Lnp- s, Pf, 30 Mcg/0.3 Ml Dose, Edwin-sucrose Anel Llamas RN [facility] 05-28-2023 Covid-19, Mrna, Lnp- s, Pf,edwin-sucrose,30 Mcg/0.3ml Fall23 Anel Llamas RN [facility] 05-28-2023 Influenza Vaccine, Quadrivalent, Adjuvanted Anel Llamas RN [facility] 05-28-2023 Seasonal trivalent influenza vaccine, adjuvanted, preservative free Anel Llamas RN [facility] 04-27-2023 RSV, recombinant, protein subunit RSVpreF, adjuvant reconstituted, 0.5 mL, PF Anel Llamas RN [facility] 01-19-2023 Pfizer COVID-19 vacc ine, bivalent, age 12 years and older (30 mcg/0.3 mL) Lake Evangelista DO Work Phone: [facility] Work Phone: 05-25-2022 Influenza, High-dose , Quadrivalent Anel Llamas RN [facility] 04-27-2022 Covid-19, Mrna, Lnp- s, Bivalent, Pf, 30mcg/0.3 ml Anel Llam[address] [facility] 04-27-2022 COVID-19, mRNA, LNP- S, PF, 30mcg/0.3mL Dose Anel Llamas RN [facility] 11-10-2021 Covid-19, Mrna, Lnp- s, Pf, 30 Mcg/0.3 Ml Dose, Edwin-sucrose Anel Llamas RN [facility] 11-10-2021 SARS-COV-2 (COVID-19 ) Vaccine, Unspecified Anel Llamas RN [facility] 05-19-2021 Influenza Vaccine, Quadrivalent, Adjuvanted Anel Llamas RN [facility] 05-19-2021 influenza virus vacc ine, unspecified formulation Anel Llamas RN [facility] 04-05-2021 Pfizer-BioNTech COVI D-19 Vacc 30 MCG/0.3ML Intramuscular Suspension Sherif Lofton Defrance Work Phone: [place] [address] DO Work Phone: 09-29-2020 Pfizer-BioNTech COVI D-19 Vacc 30 MCG/0.3ML Intramuscular Suspension Sherif Lofton Defrance Work Phone: [facility] 250 DO Work Phone: 09-06-2020 Pfizer-BioNTech COVI D-19 Vacc 30 MCG/0.3ML Intramuscular Suspension Sherif Lofton Defrance Work Phone: [facility] 250 DO Work Phone: 05-13-2020 influenza, seasonal, injectable Sherif Lofton Defrance Work Phone: [facility] 04-16-2020 Influenza Vaccine, Quadrivalent, Adjuvanted Anel Llamas RN [facility] 04-16-2020 influenza, injectabl e, quadrivalent, preservative free Sherif Lofton Defrance Work Phone: [facility] 04-16-2020 pneumococcal polysaccharide vaccine, 23 valent Sherif Lofton Defrance Work Phone: [facility] 09-25-2019 zoster vaccine recombinant Sherif T Defrance Work Phone: [facility] 07-22-2019 zoster vaccine recombinant Sherif T Defrance Work Phone: [facility] 07-13-2019 pneumococcal conjuga te vaccine, 13 valent Sherif T Defrance Work Phone: [facility] Work Phone: 05-14-2019 influenza, high dose seasonal, preservative-free Sherif T Defrance Work Phone: [facility] DO Work Phone: 05-14-2019 Seasonal trivalent influenza vaccine, adjuvanted, preservative free Sherif T Defrance Work Phone: [facility] 04-13-2019 influenza, seasonal, injectable Sherif T Defrance Work Phone: [facility] DO Work Phone: 10-20-2018 pneumococcal conjuga te vaccine, 13 valent Sherif T Defrance Work Phone: [facility] 05-27-2018 influenza, high dose seasonal, preservative-free Anel Llamas RN [facility] 05-29-2017 influenza virus vacc ine, unspecified formulation Anel Llamas RN [facility] 05-29-2017 pneumococcal conjuga te vaccine, 13 valent Anel Llamas RN [facility] 04-13-2017 influenza virus vacc ine, unspecified formulation Sherif T Defrance Work Phone: [facility] DO Work Phone: 09-08-2016 pneumococcal polysaccharide vaccine, 23 valent Sherif T Defrance Work Phone: [facility] DO Work Phone: 08-25-2016 pneumococcal polysaccharide vaccine, 23 valent Sherif T Defrance Work Phone: [facility] DO Work Phone: 06-14-2016 influenza, high dose seasonal, preservative-free Sherif T Defrance Work Phone: [facility] DO Work Phone: 05-29-2016 influenza virus vacc ine, unspecified formulation Anel Llamas RN [facility] 05-29-2016 influenza, injectabl e, madin julito canine kidney, preservative free Sherif T Defrance Work Phone: [facility] DO Work Phone: 05-13-2016 influenza virus vacc ine, unspecified formulation Sherif T Defrance Work Phone: [facility] DO Work Phone: 05-13-2015 influenza virus vacc ine, unspecified formulation Sherif T Defrance Work Phone: [facility] DO Work Phone: 04-27-2015 influenza virus vacc ine, unspecified formulation Anel Llaams RN [facility] 04-27-2015 influenza, seasonal, injectable Sherif T Defrance Work Phone: [facility] DO Work Phone: 04-26-2015 pneumococcal polysaccharide vaccine, 23 valent Sherif T Defrance Work Phone: [facility] DO Work Phone: 05-13-2014 influenza virus vacc ine, unspecified formulation Sherif T Defrance Work Phone: [facility] DO Work Phone: 05-13-2013 pneumococcal polysaccharide vaccine, 23 valent Sherif T Defrance Work Phone: [facility] DO Work Phone: 09-06-2009 novel influenza-H1N1 -09, preservative-free, injectable Sherif T Defrance Work Phone: [facility] DO Work Phone: Payers Date Payer Category Payer Self-pay [id number] 2021 Medicare [id number] 1959 Private Health Insurance [id number] 1947 Unknown [id number] 1947 Unknown [id number] 1947 Unknown [id number] [id number] 1947 Unknown [id number] [id number] 1947 Unknown [id number] [id number] 1947 Unknown [id number] [id number] 1947 Unknown [id number] [id number] 1947 Unknown [id number] 1947 Unknown [id number] [id number] 1947 Unknown [id number] [id number] 1947 Unknown [id number] [id number] 1947 Unknown [id number] [id number] Medicare [id number] Medicare Medicare [id number] Unknown [id number] Unknown Unknown Jeison [id number] Unknown [id number] Unknown [id number] Social History Date Type Detail Facility Start: 09-25-2023 End: 10-24-2023 Occasional alcohol use Occasional alcohol use [facility] Start: 09-25-2023 End: 10-24-[address] [facility] Start: 01-31-2018 End: 10-15-2023 Tobacco smoking status MTIS Never smoked tobacco [facility] Start: 01-31-2018 End: 10-15-2023 Tobacco use and exposure Smokeless tobacco non-user [facility] Start: 09-20-2023 End: 10-22-2023 Alcohol intake Ex-drinker (finding) [facility] Has the [employer], or [employer] threatened to shut off services in your home in past 12Mo No [facility] How often to you hav e a drink containing alcohol? Never [facility] How many standard drinks containing alcohol do you have on a typical day? Patient does not drink [facility] Start: 1945 Sex Assigned At Not on file P [facility] Start: 1945 Sex [facility]igned At [facility] Start: 10-24-2023 Alcohol intake Current drinke r of alcohol (finding) [facility] Work Phone: Start: 10-15-2023 Alcohol Comment occasional [facility] Work Phone: Start: 10-14-2023 End: 10-24-2023 Exposure to SARS-CoV-2 (event) Not sure [facility] Medical Equipment Procedure Code Equipment Code Equipment Origin al Text Equipment Identifier Dates Endarterectomy, carotid Cardiovascular patch, animal-derived [id number] FDA Start: 05-10-2020 Goals Date Patient Goal Desired Activity /State Personal health goal Comment on above: Formatting of this n ote might be different from the original. 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 Baseline [facility] Work Phone: 09-25-2023 Functional status Disability Sta tus Patient at Baseline [facility] Work Phone: Mental Status Date Assessment Result Facility 10-04-2023 Cognitive function Cognitive Sta tus Patient at Baseline [facility] Work Phone: Clinical Notes 12-06-2021 to 10-24-2023 Lake Evangelista, - 10/24/2023 10:20 AM EDTPatient InstructionsSherif Paredes MD - 10/22/2023 2:15 PM EDTTelephone Encounter - Eri Martin RN - 10/05/2023 9:22 AM EST Note Date & Type Note Facility 10-24-2023 History of Presen t illness Narrative Subjective Janice Shultz is a 78 y.o. male Chief Complaint Hospital Follow-up 78-year-old gentleman returns for follow-up following recent PICA stroke with hemorrhagic conversion, treated conservatively [facility] and then subsequent rehab on tow at [facility]. He is now recovered very nicely has no neurologic sequela, is ambulating independently, has full ambulatory control, visual acuity and no dysarthria or sensory deficits nor any recurrent vertigo. Details of his presentation and hospitalization and discharge summary are reviewed He has follow-up with his neurologist next week, he also has follow-up with vascular surgery in the next [address] Akers is followed his carotid arteries routinely. Notably he has not had any event/rhythm monitoring nor any echo with bubble study to ascertain etiology of his posterior stroke. He denies any angina or heart failure and remains active and is going out golfing this afternoon He has had remote PCI of the RCA in 2014 with normal stress perfusion imaging in 2020 Recommendations, proceed with lipid panel, high-sensitivity CRP, 14-day event monitor, echo with bubble study, follow-up in 6 months or sooner for any abnormalities. Review of Systems All other systems reviewed and are negative. Vitals: 10/24/23 1026 BP: 118/78 BP Location: Right arm Patient Position: Sitting Pulse: 74 Weight: 82.1 kg (181 lb) Height: 1.803 m (5' 11 ) Objective Physical Exam Constitutional: Appearance: Normal appearance. HENT: Nose: Nose normal. Neck: Vascular: No carotid bruit. Cardiovascular: Rate and Rhythm: Normal rate. Pulses: Normal pulses. Heart sounds: Normal heart sounds. Pulmonary: Effort: Pulmonary effort is normal. Abdominal: General: Bowel sounds are normal. Palpations: Abdomen is soft. Musculoskeletal: General: Normal range of motion. Cervical back: Normal range of motion. Right lower leg: No edema. Left lower leg: No edema. Skin: General: Skin is warm and dry. Neurological: General: No focal deficit present. Mental Status: He is alert. Psychiatric: Mood and Affect: Mood normal. Behavior: Behavior normal. Thought Content: Thought content normal. Judgment: Judgment normal. Allergies Patient has no known allergies. Current Medications Current Outpatient Medications: aspirin 81 mg EC tablet, Take 1 tablet (81 mg) by mouth once daily., Disp: , Rfl: meclizine (Antivert) 25 mg tablet, 1 tablet (25 mg) 3 times a day as needed., Disp: , Rfl: metoprolol tartrate (Lopressor) 25 mg tablet, Take 0.5 tablets (12.5 mg) by mouth twice a day., Disp: , Rfl: nitroglycerin (Nitrostat) 0.4 mg SL tablet, place 1 tablet under the tongue if needed every 5 minutes for selam... (REFER TO PRESCRIPTION NOTES)., Disp: , Rfl: omega-3 acid ethyl esters (Lovaza) 1 gram capsule, Take 1 capsule (1 g) by mouth twice a day., Disp: , Rfl: simvastatin (Zocor) 20 mg tablet, Take 1 tablet (20 mg) by mouth once daily at bedtime., Disp: , Rfl: tamsulosin (Flomax) 0.4 mg 24 hr capsule, Take 1 capsule (0.4 mg) by mouth once daily., Disp: , Rfl: Assessment/Plan 1. Atherosclerosis of coronary artery of [place] heart with angina pectoris, unspecified vessel or lesion type (CMS/HCC) 2. Cerebrovascular accident (CVA), unspecified mechanism (CMS/HCC) 3. History of PTCA 2 4. Hyperlipidemia, unspecified hyperlipidemia type Scribe Attestation By signing my name below, I, Cathie Gray LPN Scribe attest that this documentation has been prepared under the direction and in the presence of Lake Evangelista DO. Provider Attestation - Scribe documentation All medical record entries made by the Scribe were at my direction and personally dictated by me. I have reviewed the chart and agree that the record accurately reflects my personal performance of the history, physical exam, discussion and plan. documented in this encounter [facility] Work Phone: 10-24-2023 Instructions Cathie Novak LPN - 10/24/2023 10:20 AM EDT Please bring all medicines, vitamins, and herbal supplements with you when you come to the office. Prescriptions will not be filled unless you are compliant with your follow up appointments or have a follow up appointment scheduled as per instruction of your physician. Refills should be requested at the time of your visit. BMI was above normal measurement. Current weight: 82.1 kg (181 lb) Weight change since last visit (-) denotes wt loss -4 lbs Weight loss needed to achieve BMI 25: 2.1 Lbs Weight loss needed to achieve BMI 30: -33.6 Lbs Provided instructions on dietary changes Provided instructions on exercise Advised to Increase physical activity. documented in this encounter [facility] Work Phone: 10-22-2023 History of Presen t illness Narrative Images from the original note were not included. [email or web address] [place] [id number] SUBJECTIVE: Transition of Care Additional Questions/Concerns Requiring PCP Follow-Up: may call to change BELÉN appt. This documentation is being used for Transition of Care purposes: Yes Goal: Patient will demonstrate a safe transition from facility to home Diagnosis on Discharge: CVA Impaired mobility and ADL's Vertigo History of cardiac catheterization HTN Hyperlipidemia Discharge Specialty: Neurology Name of Discharging Facility: [facility] rehab Patient was at [facility] 09/20/23 - 09/25/23 Date of Facility Discharge: 09/25/23 - 10/04/23 Date of Interactive Contact and Name of Construction Equipment Overhauler: Spoke with Janice on 10/05/23 Medication Review Completed: Yes Medication Reconciliation Questions/Concerns: Tylenol 500 mg every 4 hours as needed Meclizine 25 mg every 8 hours as needed for dizziness Scopolamine patch every 72 hours as need for dizziness Discontinue- Rosuvastatin Follow Up Appointments with Providers: Primary: Sherif Paredes MD BELÉN 10/16/23 @ 3:15 Specialty: OP therapy at [facility] Specialty: Neurology Dr Rosado - 10/17/23 @ 3:00 Specialty: Dr La for CVA Rehab MD- 11/14/23 @ 9:45 Review of Pending Lab/Diagnostic [...] Check blood sugars at breakfast and dinner towel cabinet repairer placed day of discharge and follow instructions [...] Eri Martin RN, can be reached at [phone] and will follow for a minimum of 30 days following hospitalization. Communication with Home Health Agencies and Other Services Utilized/Needed by the Patient: Patient ID: Janice Shultz is a 78 y.o. male. 78 o WM with NV and dizziness flu like symptoms starting 09/17 and went to ER 09/19 and admitted for brain bleed admitted 09/20-09/25 and went to rehab 09/25-10/04, working out at home, no dizziness, no chest pain, no shortness, no NV, no dysphagia or dysarthria, balanc issues, discuss meds and pt wants to stay on tamulosin as it helped the urination and pt is practically 100% now The following portions of the patient's history were reviewed and updated as appropriate: allergies, current medications, past family history, past medical history, past social history, past surgical history and problem list. REVIEW OF SYSTEMS: Review of Systems Respiratory: Negative. Cardiovascular: Negative. Gastrointestinal: Negative. Genitourinary: Negative. PHYSICAL EXAMINATION: Vitals: 10/22/23 1425 BP: 118/70 BP Site: Left Arm BP Postition: Sitting BP CUFF SIZE: M (9-13 inches) Pulse: 60 Resp: 16 Weight: 81.6 kg (180 lb) Height: 177.8 cm (5' 10 ) Physical Exam Vitals and nursing note reviewed. Constitutional: Appearance: Normal appearance. HENT: Head: Normocephalic and atraumatic. Eyes: Extraocular Movements: Extraocular movements intact. Pupils: Pupils are equal, round, and reactive to light. Cardiovascular: Rate and Rhythm: Normal rate and regular rhythm. Pulses: Normal pulses. Heart sounds: Normal heart sounds. Pulmonary: Effort: Pulmonary effort is normal. Breath sounds: Normal breath sounds. Skin: General: Skin is warm and dry. Neurological: Mental Status: He is alert and oriented to person, place, and time. Mental status is at baseline. Motor: Weakness present. Psychiatric: Mood and Affect: Mood normal. Behavior: Behavior normal. ASSESSMENT/PLAN: Janice was seen today for belén. 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 Follow-up: F/u neurologist and cardiology Pt has deferred outpatient therapy or home health Refilled tamulosin documented in this encounter [facility] 10-05-2023 Miscellaneous Notes A user error has taken place: encounter opened in error, closed for administrative reasons. documented in this encounter [facility] 10-05-2023 Telephone encounter Note A user error has taken place: encounter opened in error, closed for administrative reasons. [facility] Work Phone: 10-05-2023 Miscellaneous Notes Transition of Care Additional Questions/Concerns Requiring PCP Follow-Up: may call to change BELÉN appt. This documentation is being used for Transition of Care purposes: Yes Goal: Patient will demonstrate a safe transition from facility to home Diagnosis on Discharge: CVA Impaired mobility and ADL's Vertigo History of cardiac catheterization HTN Hyperlipidemia Discharge Specialty: Neurology Name of Discharging Facility: [facility] rehab Patient was at [facility] 09/20/23 - 09/25/23 Date of Facility Discharge: 09/25/23 - 10/04/23 Date of Interactive Contact and Name of Construction Equipment Overhauler: Spoke with Janice on 10/05/23 Medication Review Completed: Yes Medication Reconciliation Questions/Concerns: Tylenol 500 mg every 4 hours as needed Meclizine 25 mg every 8 hours as needed for dizziness Scopolamine patch every 72 hours as need for dizziness Discontinue- Rosuvastatin Follow Up Appointments with Providers: Primary: Sherif Paredes MD BELÉN 10/16/23 @ 3:15 Specialty: OP therapy at [facility] Specialty: Neurology Dr Rosado - 10/17/23 [...] Check blood sugars at breakfast and dinner towel cabinet repairer placed day of discharge and follow instructions [...] Eri Martin RN, can be reached at [phone] and will follow for a minimum of 30 days following hospitalization. Communication with Home Health Agencies and Other Services Utilized/Needed by the Patient: Scheduled. documented in this encounter [facility] 10-05-2023 Telephone encounter Note Transition of Care Additional Questions/Concerns Requiring PCP Follow-Up: may call to change BLEÉN appt. This documentation is being used for Transition of Care purposes: Yes Goal: Patient will demonstrate a safe transition from facility to home Diagnosis on Discharge: CVA Impaired mobility and ADL's Vertigo History of cardiac catheterization HTN Hyperlipidemia Discharge Specialty: Neurology Name of Discharging Facility: [facility] rehab Patient was at [facility] 09/20/23 - 09/25/23 Date of Facility Discharge: 09/25/23 - 10/04/23 Date of Interactive Contact and Name of Construction Equipment Overhauler: Spoke with Janice on 10/05/23 Medication Review Completed: Yes Medication Reconciliation Questions/Concerns: Tylenol 500 mg every 4 hours as needed Meclizine 25 mg every 8 hours as needed for dizziness Scopolamine patch every 72 hours as need for dizziness Discontinue- Rosuvastatin Follow Up Appointments with Providers: Primary: Sherif Paredes MD BELÉN 10/16/23 @ 3:15 Specialty: OP therapy at [facility] Specialty: Neurology Dr Rosado - 10/17/23 [...] Check blood sugars at breakfast and dinner towel cabinet repairer placed day of discharge and follow instructions [...] Eri Martin RN, can be reached at [phone] and will follow for a minimum of 30 days following hospitalization. Communication with Home Health Agencies and Other Services Utilized/Needed by the Patient: [facility] Work Phone: 10-05-2023 Telephone encounter Note Scheduled. [facility] 10-03-2023 Progress note Note Date/Time October 03, 2023 1:35pm [facility] [address] [place] [address] Hospitalist Progress Note Signed Patient: Janice Shultz MR#: [id number] : 1945 Acct:[id number] Age/Sex: 78 / M Adm Date: 4 Loc: Room: 9U2177-2 Type: ADM IN Attending Dr: Donovan La [...] mg 09/25/23 15:43 Bisacodyl 10 Mg Supp.Rect UT 09/24/24 15:42 DAILY PRN Constipation Docusate Sodium 100 mg 09/25/23 15:43 09/30/23 09:07 Docusate 100 Mg Capsule PO 09/24/24 15:42 100 mg BID PRN Administration Constipation Docusate Sodium 283 mg 09/25/23 15:43 Docusate Enema 283 Mg/5 Ml Enema UT 09/24/24 15:42 DAILY PRN Constipation Fish Oil 1,000 mg 09/25/23 21:00 10/03/23 09:11 Makoti-3/Fish Oil 1,000 Mg Capsule PO 09/24/24 20:59 [...] sugars reviewed, well-controlled 2. Hypertension, CAD hx NH/ stents, HLD?metoprolol, Fish oil, ASA. Blood pressures reviewed, well-controlled 3. BPH?tamsulosin, monitor for retention Documented By: Sarah Malhotra APRN 10/03/23 1327 Signed By: <Electronically signed by NAN Malhotra> 10/03/23 1426 <Electronically signed by Niurka Chung MD> 10/03/23 1643 [facility] Work Phone: 1(716) 110-213802-21-2024 Progress note Author Hernan Minaya [facility] October 03, 2023 2:33pm Note Date/Time October 03, 2023 2:33pm [facility] [address] [place] [address] Physiatry(Rehab) Progress Note Signed Patient: Janice Shultz MR#: [id number] : 1945 Acct:[id number] Age/Sex: 78 / M Adm Date: 4 Loc: 5T Room: 6S9813-1 Type: ADM IN Attending Dr: Donovan La MD Copies to: ~ Date of Service: 10/03/2023 Subjective Subjective Narrative: Mr. Shultz is a 78 year old male with PMH previous CVA in 2017, HTN, CAD and CABG who presents to [facility] rehab following acute hospitalization for left PICA stroke with hemorrhagic transformation. The patient initially presents to [facility] for evaluation for 5 days vertigo with N/V, blurred vision, and gait instability. He reportedly had a fall1 day prior to admission due to vertigo. Non contrast CTH was done and demonstrated evidence of hemorrhage in the PICA territory. Patient was transferred to [facility]. 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 Neurosurgery was consulted and recommended no surgical intervention. CTA demonstrated occlusion of left V1 and moderate stenosis of right M1. Prior to his CVA, patient was very active. Exercised daily. Lives with his spouse in a 2 story home with 3 CJ. First floor set up possible. Independent. Patient [...] 10/03/23 06:33 10/03/23 06:33 10/03/23 06:33 10/03/23 06:10/03/23 09:23 Narrative: General: Awake, alert, oriented x3 [...] mg 09/25/23 15:43 Bisacodyl 10 Mg Supp.Rect UT 09/24/24 15:42 DAILY PRN Constipation Docusate Sodium 100 mg 09/25/23 15:43 09/30/23 09:07 Docusate 100 Mg Capsule PO 09/24/24 15:42 100 mg BID PRN Administration Constipation Docusate Sodium 283 mg 09/25/23 15:43 Docusate Enema 283 Mg/5 Ml Enema UT 09/24/24 15:42 DAILY PRN Constipation Fish Oil 1,000 mg 09/25/23 21:00 10/03/23 09:11 Makoti-3/Fish Oil 1,000 Mg Capsule PO 09/24/24 20:59 [...] HTN, CAD s/p CABG who presents to [facility] for rehab following 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 He has continued impaired mobility and impaired independence with ADLsand IADLs requiring PT/OT/CLINICAL PSYCHOLOGIST PRIVATE PRACTICE 5-7 days/week 3 hours/day to maximize safety [...] equipment to enhance the patient's a functional uatsdin Encourage deep breathing exercises and incentive spirometry [...] greater than 25 minutes for services, including yxeg-zh-zplh encounter with the patient, discussion of the case, plan of care, and exam; and mzikpzi-le-ephs activities, such as reviewing pertinent project consultant documentation, recent therapy notes, laboratory and radiology studies, and discussion of case with care team including physician, nursing, clinical case manager, and therapists. More than 50 % of time was spent on patient/family counseling or coordination ofcare. Documented By: Hernan Minaya MD 10/03/23 1429 Signed By: <Electronically signed by Hernan Minaya MD> 10/03/23 1433 [facility] Work Phone: 1(957) 343-774802-20-2024 Progress note Author Donovan La [facility] October 02, 2023 1:17pm Note Date/Time October 02, 2023 11:03am [facility] [address] [place] [address] Physiatry(Rehab) Progress Note Signed Patient: Janice Shultz MR#: [id number] : 1945 Acct:[id number] Age/Sex: 78 / M Adm Date: 4 Loc: Room: [address] [place] [address] Type: ADM IN Attending Dr: Donovan La MD Copies to: ~ Date of Service: 10/02/2023 Subjective Subjective Narrative: Mr. Shultz is a 78 year old male with PMH previous CVA in 2017, HTN, CAD and CABG who presents to [facility] rehab following acute hospitalization for left PICA stroke with hemorrhagic transformation. The patient initially presents to [facility] for evaluation for 5 days vertigo with N/V, blurred vision, and gait instability. He reportedly had a fall1 day prior to admission due to vertigo. Non contrast CTH was done and demonstrated evidence of hemorrhage in the PICA territory. Patient was transferred to [facility]. 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 Neurosurgery was consulted and recommended no surgical intervention. CTA demonstrated occlusion of left V1 and moderate stenosis of right M1. Prior to his CVA, patient was very active. Exercised daily. Lives with his spouse in a 2 story home with 3 CJ. First floor set up possible. Independent. Patient [...] mg 09/25/23 15:43 Bisacodyl 10 Mg Supp.Rect UT 09/24/24 15:42 DAILY PRN Constipation Docusate Sodium 100 mg 09/25/23 15:43 09/30/23 09:07 Docusate 100 Mg Capsule PO 09/24/24 15:42 100 mg BID PRN Administration Constipation Docusate Sodium 283 mg 09/25/23 15:43 Docusate Enema 283 Mg/5 Ml Enema UT 09/24/24 15:42 DAILY PRN Constipation Fish Oil 1,000 mg 09/25/23 21:00 10/02/23 09:50 Makoti-3/Fish Oil 1,000 Mg Capsule PO 09/24/24 20:59 1,000 mg BID ANYELY Administration Heparin Sodium (Porcine) 5,000 unit 09/25/23 [...] HTN, CAD s/p CABG who presents to [facility] for rehab following 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 He has continued impaired mobility and impaired independence with ADLsand IADLs requiring PT/OT/CLINICAL PSYCHOLOGIST PRIVATE PRACTICE 5-7 days/week 3 hours/day to maximize safety [...] equipment to enhance the patient's a functional uatsdin Encourage deep breathing exercises and incentive spirometry [...] greater than 15 minutes for services, including syvq-bv-zluk encounter with the patient, discussion of the case, plan of care, and exam; and ieexgdn-qd-pxha activities, such as reviewing pertinent project consultant documentation, recent therapy notes, laboratory and radiology studies, and discussion of case with care team including physician, nursing, clinical case manager, and therapists. More than 50 % of time was spent on patient/family counseling or coordination ofcare. <Statement entered by Donovan La MD - 10/02/23 13:17> I completed a substantive portion of this encounter, the medical decision makingportion of this note in its entirety, including Allied health note review, nursing note review, project consultant note review, discussion with nursing and case management, and more than 50% of my time was spent on counseling and coordination of care, time spent 27 minutes Patient was personally seen by me, Dr. La, on the day of encounter, reviewed the history and the relevant portions of the chart, including current orders, allied health and project consultant notes, labs/imaging and performed mims elements of exam and I formulated the plan of care and facilitated the medical decision making. Documented By: Tracy Fernandez APRN 10/02/23 1 056 Signed By: <Electronically signed by NAN Fernandez> 10/02/23 1102 <Electronically signed by Donovan La MD> 10/02/23 5552 [facility] Work Phone: 1(584) 187-377602-19-2024 Progress note Author Donovan La [facility] October 01, 2023 1:32pm Note Date/Time October 01, 2023 1:32pm [facility] [address] [place] [address] Physiatry(Rehab) Progress Note Signed Patient: Janice Shultz MR#: [id number] : 1945 Acct:[id number] Age/Sex: 78 / M Adm Date: 4 Loc: Room: [address] [place] [address] Type: ADM IN Attending Dr: Donovan La MD Copies to: ~ Date of Service: 10/01/2023 Subjective Subjective Narrative: Mr. Shultz is a 78 year old male with PMH previous CVA in 2017, HTN, CAD and CABG who presents to [facility] rehab following acute hospitalization for left PICA stroke with hemorrhagic transformation. The patient initially presents to [facility] for evaluation for 5 days vertigo with N/V, blurred vision, and gait instability. He reportedly had a fall1 day prior to admission due to vertigo. Non contrast CTH was done and demonstrated evidence of hemorrhage in the PICA territory. Patient was transferred to [facility]. 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 Neurosurgery was consulted and recommended no surgical intervention. CTA demonstrated occlusion of left V1 and moderate stenosis of right M1. Prior to his CVA, patient was very active. Exercised daily. Lives with his spouse in a 2 story home with 3 CJ. First floor set up possible. Independent. Patient [...] 09/26/23 09:00 10/01/23 09:11 Aspirin 81 Mg Tablet. PO 09/25/24 08:59 81 mg DAILY NAYELY Administration Bisacodyl 10 mg 09/25/23 15:43 Bisacodyl 10 Mg Supp.Rect UT 09/24/24 15:42 DAILY PRN Constipation Docusate Sodium 100 mg 09/25/23 15:43 09/30/23 09:07 Docusate 100 Mg Capsule PO 09/24/24 15:42 100 mg BID PRN Administration Constipation Docusate Sodium 283 mg 09/25/23 15:43 Docusate Enema 283 Mg/5 Ml Enema UT 09/24/24 15:42 DAILY PRN Constipation Fish Oil 1,000 mg 09/25/23 21:00 10/01/23 09:11 Makoti-3/Fish Oil 1,000 Mg Capsule PO 09/24/24 20:59 [...] HTN, CAD s/p CABG who presents to [facility] for rehab following 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 He has continued impaired mobility and impaired independence with ADLsand IADLs requiring PT/OT/CLINICAL PSYCHOLOGIST PRIVATE PRACTICE 5-7 days/week 3 hours/day to maximize safety [...] equipment to enhance the patient's a functional uatsdin Encourage deep breathing exercises and incentive spirometry [...] greater than 15 minutes for services, including yxfw-zq-mvdi encounter with the patient, discussion of the case, plan of care, and exam; and drvlmpu-cc-sols activities, such as reviewing pertinent project consultant documentation, recent therapy notes, laboratory and radiology studies, and discussion of case with care team including physician, nursing, clinical case manager, and therapists. More than 50 % of time was spent on patient/family counseling or coordination ofcare. Documented By: Donovan La MD 1327 Signed By: <Electronically signed by Donovan La MD> 10/01/23 1332 [facility] Work Phone: 1(455) 947-724502-19-2024 Progress note Author Donovan La [facility] October 01, 2023 9:30am Note Date/Time September 28, 2023 12:45pm [facility] [address] [place] [address] Physiatry(Rehab) Progress Note Signed Patient: Janice Shultz MR#: [id number] : 1945 Acct:[id number] Age/Sex: 78 / M Adm Date: 4 Loc: Room: [address] [place] [address] Type: ADM IN Attending Dr: Donovan La MD Copies to: ~ Date of Service: 09/28/2023 Subjective Subjective Narrative: Mr. Shultz is a 78 year old male with PMH previous CVA in 2017, HTN, CAD and CABG who presents to [facility] rehab following acute hospitalization for left PICA stroke with hemorrhagic transformation. The patient initially presents to [facility] for evaluation for 5 days vertigo with N/V, blurred vision, and gait instability. He reportedly had a fall1 day prior to admission due to vertigo. Non contrast CTH was done and demonstrated evidence of hemorrhage in the PICA territory. Patient was transferred to [facility]. 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 Neurosurgery was consulted and recommended no surgical intervention. CTA demonstrated occlusion of left V1 and moderate stenosis of right M1. Prior to his CVA, patient was very active. Exercised daily. Lives with his spouse in a 2 story home with 3 CJ. First floor set up possible. Independent. Patient [...] mg 09/25/23 15:43 Bisacodyl 10 Mg Supp.Rect UT 09/24/24 15:42 DAILY PRN Constipation Docusate Sodium 100 mg 09/25/23 15:43 09/28/23 08:43 Docusate 100 Mg Capsule PO 09/24/24 15:42 100 mg BID PRN Administration Constipation Docusate Sodium 283 mg 09/25/23 15:43 Docusate Enema 283 Mg/5 Ml Enema UT 09/24/24 15:42 DAILY PRN Constipation Fish Oil 1,000 mg 09/25/23 21:00 09/28/23 08:43 Makoti-3/Fish Oil 1,000 Mg Capsule PO 09/24/24 20:59 [...] HTN, CAD s/p CABG who presents to [facility] for rehab following 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 He has continued impaired mobility and impaired independence with ADLsand IADLs requiring PT/OT/CLINICAL PSYCHOLOGIST PRIVATE PRACTICE 5-7 days/week 3 hours/day to maximize safety [...] equipment to enhance the patient's a functional uatsdin Encourage deep breathing exercises and incentive spirometry [...] greater than 15 minutes for services, including wpad-pn-pmrv encounter with the patient, discussion of the case, plan of care, and exam; and vimeumt-wy-jrwb activities, such as reviewing pertinent project consultant documentation, recent therapy notes, laboratory and radiology studies, and discussion of case with care team including physician, nursing, clinical case manager, and therapists. More than 50 % of time was spent on patient/family counseling or coordination ofcare. <Statement entered by Donovan La MD - 10/01/23 09:30> This documentation has been reviewed and approved. Documented By: Tracy Fernandez APRN 09/28/23 1 241 Signed By: <Electronically signed by NAN Fernandez> 09/28/23 1250 <Electronically signed by Donovan La MD> 10/01/23 0930 [facility] Work Phone: 1(899) 366-681202-19-2024 Progress note Author Donovan La [facility] October 01, 2023 9:30am Note Date/Time September 29, 2023 11:26am [facility] [address] [place] [address] Physiatry(Rehab) Progress Note Signed Patient: Janice Shultz MR#: [id number] : 1945 Acct:[id number] Age/Sex: 78 / M Adm Date: 4 Loc: Room: 8T3371-0 Type: ADM IN Attending Dr: Donovan La MD Copies to: ~ Date of Service: 09/29/2023 Subjective Subjective Narrative: Mr. Shultz is a 78 year old male with PMH previous CVA in 2017, HTN, CAD and CABG who presents to [facility] rehab following acute hospitalization for left PICA stroke with hemorrhagic transformation. The patient initially presents to [facility] for evaluation for 5 days vertigo with N/V, blurred vision, and gait instability. He reportedly had a fall1 day prior to admission due to vertigo. Non contrast CTH was done and demonstrated evidence of hemorrhage in the PICA territory. Patient was transferred to [facility]. 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 Neurosurgery was consulted and recommended no surgical intervention. CTA demonstrated occlusion of left V1 and moderate stenosis of right M1. Prior to his CVA, patient was very active. Exercised daily. Lives with his spouse in a 2 story home with 3 CJ. First floor set up possible. Independent. Patient [...] like to transition patient's neurological care to [facility]. Will contact KAREN Rodriguez to see if [...] 09/26/23 09:00 09/29/23 08:46 Aspirin 81 Mg Tablet. PO 09/25/24 08:59 81 mg DAILY NAYELY Administration Bisacodyl 10 mg 09/25/23 15:43 Bisacodyl 10 Mg Supp.Rect UT 09/24/24 15:42 DAILY PRN Constipation Docusate Sodium 100 mg 09/25/23 15:43 09/28/23 08:43 Docusate 100 Mg Capsule PO 09/24/24 15:42 100 mg BID PRN Administration Constipation Docusate Sodium 283 mg 09/25/23 15:43 Docusate Enema 283 Mg/5 Ml Enema UT 09/24/24 15:42 DAILY PRN Constipation Fish Oil 1,000 mg 09/25/23 21:00 09/29/23 08:46 Makoti-3/Fish Oil 1,000 Mg Capsule PO 09/24/24 20:59 [...] HTN, CAD s/p CABG who presents to [facility] IRF for rehab following 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 He has continued impaired mobility and impaired independence with ADLsand IADLs requiring PT/OT/CLINICAL PSYCHOLOGIST PRIVATE PRACTICE 5-7 days/week 3 hours/day to maximize safety [...] equipment to enhance the patient's a functional uatsdin Encourage deep breathing exercises and incentive spirometry [...] greater than 15 minutes for services, including [id number] encounter with the patient, discussion of the case, plan of care, and exam; and [id number] activities, such as reviewing pertinent project consultant documentation, recent therapy notes, laboratory and radiology studies, and discussion of case with care team including physician, nursing, clinical case manager, and therapists. More than 50 % of time was spent on patient/family counseling or coordination ofcare. <Statement entered by Donovan La MD - 10/01/23 09:29> This documentation has been reviewed and approved. Documented By: Tracy Fernandez APRN 09/29/23 1 119 Signed By: <Electronically signed by NAN Fernandez> 09/29/23 1126 <Electronically signed by Donovan La MD> 10/01/23 2673 [facility] Work Phone: 1(112) 179-703602-15-2024 Consult note Author Adriana Ling [facility] September 27, 2023 8:06pm Note Date/Time September 27, 2023 5:55pm [facility] [address] [place] [address] Hospitalist Consult Note Signed Patient: Janice Shultz MR#: [id number] : 1945 Acct:[id number] Age/Sex: 78 / M Adm Date: 4 Loc: Room: [address] [place] [address] Type: ADM IN Attending Dr: Donovan La MD Copies to: MD Sherif Mercado MD Lynn A Stackhouse-Roby, GRAIN ELEVATOR MOTOR STARTER Adriana Ling MD~ HPI DATE OF CONSULTATION: 09/26/23 REQUESTING PROVIDER: Donovan La Consult Narrative Reason for Consult: Diabetes HPI: 78-year-old male past medical history significant for CAD history NH and stents,hypertension, hyperlipidemia, diabetes, CVA, BPH. Patient initially presented to [facility] with visual disturbance, vertigo nausea and vomiting, gait instability with fall 1 day prior to presentation. Workup demonstrated evidenceof hemorrhage and peaked territory on noncontrast CT. Patient was urgently transferred to [facility] for further management. MRI of the brain there confirmed Picot ischemic stroke with hemorrhagic conversion. The patient was seen by neurosurgical services while there with no interventions recommended. CTA did show evidence of occluded left V1 and moderate stenosis of right M1. Hewas seen by therapy services and ultimately transferred to the inpatient rehab unit here at [facility] September 26. Hospitalist team is now [...] mg 09/25/23 15:43 Bisacodyl 10 Mg Supp.Rect UT 09/24/24 15:42 DAILY PRN Constipation Docusate Sodium 100 mg 09/25/23 15:43 Docusate 100 Mg Capsule PO 09/24/24 15:42 BID PRN Constipation Docusate Sodium 283 mg 09/25/23 15:43 Docusate Enema 283 Mg/5 Ml Enema UT 09/24/24 15:42 DAILY PRN Constipation Fish Oil 1,000 mg 09/25/23 21:00 09/26/23 08:42 Makoti-3/Fish Oil 1,000 Mg Capsule PO 09/24/24 20:59 [...] Tablet PO 09/24/24 20:59 Not Given BID [facility] Scopolamine 1 each 09/28/23 09:00 Scopolamine 1 Mg/3 Days Patch TRANSDERML 09/27/24 08:59 Q72HR NAYELY Sennosides 2 tab 09/26/23 12:00 Sennosides 8.6 Mg Tablet PO 09/25/24 11:59 DAILY@12 PRN If no BM in 2 days Sodium Chloride 0 ml 09/25/23 15:43 Sodium Chloride 0.9 % 10 Ml Syringe IV-PUSH 09/24/24 15:42 PRN PRN Flush Tamsulosin HCl 0.4 mg 09/25/23 22:00 09/25/23 21:13 Tamsulosin 0.4 Mg Cap.Er.24h PO 09/24/24 21:59 0.4 mg QHS NAYELY Administration Exam Physical Exam Vital Signs: Temp [...] % (Auto) 68.0, Lymph % (Auto) 19.4, Riley % (Auto) 9.4, Eos % (Auto) 2.1, Baso % (Auto) 1.1, Nucleat RBC Rel Count 0.0, Neut # (Auto) 6.2, Lymph # (Auto) 1.8, Riley # (Auto) 0.9 H, Eos # (Auto) [...] conditions 1. Diabetes?metformin 2. Hypertension, CAD hx NH/ stents, HLD?metoprolol. BPs reviewed and controlled. Fish oil, ASA 3. BPH?tamsulosin, monitor for retention Documented By: Jessie Andrea APRN 09/13 12/04 1800 Signed By: <Electronically signed by NAN Andrea> 09/27/23 1805 <Electronically signed by Adriana Ling MD> 09/27/232005 [facility] Work Phone: 1(979) 543-217602-15-2024 Progress note Author Donovan La [facility] September 27, 2023 12:57pm Note Date/Time September 27, 2023 10:58am [facility] [address] [place] [address] Physiatry(Rehab) Progress Note Signed Patient: Janice Shultz MR#: [id number] : 1945 Acct:[id number] Age/Sex: 78 / M Adm Date: 4 Loc: Room: [address] [place] [address] Type: ADM IN Attending Dr: Donovan La MD Copies to: ~ <Toni Orozco MD, RES - Last Filed: 09/27/23 10:58> Date of Service: 09/27/2023 Subjective <Toni Orozco MD, RES - Last Filed: 09/27/23 10:58> Subjective Narrative: Mr. Shultz is a 78 year old male with PMH previous CVA in 2017, HTN, CAD and CABG who presents to [facility] rehab following acute hospitalization for left PICA stroke with hemorrhagic transformation. The patient initially presents to [facility] for evaluation for 5 days vertigo with N/V, blurred vision, and gait instability. He reportedly had a fall1 day prior to admission due to vertigo. Non contrast CTH was done and demonstrated evidence of hemorrhage in the PICA territory. Patient was transferred to [facility]. 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 Neurosurgery was consulted and recommended no surgical intervention. CTA demonstrated occlusion of left V1 and moderate stenosis of right M1. Prior to his CVA, patient was very active. Exercised daily. Lives with his spouse in a 2 story home with 3 CJ. First floor set up possible. Independent. Patient [...] mg 09/25/23 15:43 Bisacodyl 10 Mg Supp.Rect UT 09/24/24 15:42 DAILY PRN Constipation Docusate Sodium 100 mg 09/25/23 15:43 Docusate 100 Mg Capsule PO 09/24/24 15:42 BID PRN Constipation Docusate Sodium 283 mg 09/25/23 15:43 Docusate Enema 283 Mg/5 Ml Enema UT 09/24/24 15:42 DAILY PRN Constipation Fish Oil 1,000 mg 09/25/23 21:00 09/27/23 08:10 Makoti-3/Fish Oil 1,000 Mg Capsule PO 09/24/24 20:59 [...] HTN, CAD s/p CABG who presents to [facility] IR[facility] for rehab following 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 He has continued impaired mobility and impaired independence with ADLsand IADLs requiring PT/OT/CLINICAL PSYCHOLOGIST PRIVATE PRACTICE 5-7 days/week 3 hours/day to maximize safety [...] equipment to enhance the patient's a functional uatsdin Encourage deep breathing exercises and incentive spirometry [...] Allied health note review, nursing note review, project consultant note review, discussion with nursing and case management, and more than 50% of my time was spent on counseling and coordination of care, time spent 70 minutes Patient was personally seen by me, Dr. La, on the day of encounter, reviewed the history and the relevant portions of the chart, including current orders, allied health and project consultant notes, labs/imaging and performed mims elements [...] HTN, CAD s/p CABG who presents to [facility] for rehab following 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 He has continued impaired mobility and impaired independence with ADLsand IADLs requiring PT/OT/CLINICAL PSYCHOLOGIST PRIVATE PRACTICE 5-7 days/week 3 hours/day to maximize safety [...] equipment to enhance the patient's a functional uatsdin Encourage deep breathing exercises and incentive spirometry [...] Allied health note review, nursing note review, project consultant note review, discussion with nursing and case management, and more than 50% of my time was spent on counseling and coordination of care, time spent 30 minutes Patient was personally seen by me, Dr. La, on the day of encounter, reviewed the history and the relevant portions of the chart, including current orders, allied health and project consultant notes, labs/imaging and performed mims elements of exam and I formulated the plan of care and facilitated the medical decision making. Agree with above. Repeat CT head today for f/u but also due to some worsening dizziness. Change atorvastatin to simvastatin as patient reports significant muscle pain with atorvastatin. Documented By: Toin Orozco MD, RES 09/27/23 1053 Signed By: <Electronically signed by MD JHON Orozco> 09/27/23 1058 <Electronically signed by Donovan La MD> 09/27/23 1257 [facility] Work Phone: 1(658) 375-471402-14-2024 History of Present illness Narrative* Anel Llamas RN - 09/26/2023 3:19 PM EST error [facility] History and physical note Author Donovan La [facility] September 26, 2023 12:12pm Note Date/Time September 26, 2023 10:24am [facility] [address] [place] [address] Physiatry (Rehab) H&P Signed Patient: Janice Shultz MR#: [id number] : 1945 Acct:[id number] Age/Sex: 78 / M Adm Date: 4 Loc: Room: 0K7342-6 Type: ADM IN Attending Dr: Donovan La MD Copies to: MD Sherif Mercado MD~ Date of Service: 09/26/2023 HPI The patient was seen and examined on: 09/26/23 History of Present Illness: Mr. Shultz is a 78 year old male with PMH previous CVA in 2017, HTN, CAD and CABG who presents to [facility] rehab following acute hospitalization for left PICA stroke with hemorrhagic transformation. The patient initially presents to [facility] for evaluation for 5 days vertigo with N/V, blurred vision, and gait instability. He reportedly had a fall1 day prior to admission due to vertigo. Non contrast CTH was done and demonstrated evidence of hemorrhage in the PICA territory. Patient was transferred to [facility]. 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 Neurosurgery was consulted and recommended no surgical intervention. CTA demonstrated occlusion of left V1 and moderate stenosis of right M1. Prior to his CVA, patient was very active. Exercised daily. Lives with his spouse in a 2 story home with 3 CJ. First floor set up possible. Independent. Patient [...] 81 Mg Tablet.Dr) 81 mg PO DAILY NAYELY Stop: 09/25/24 08:59 Last Admin: 09/26/23 08:42 Dose: 81 mg Atorvastatin Calcium (Atorvastatin 80 Mg Tablet) 80 mg PO HS NAYELY Stop: 09/24/24 21:59 Last Admin: 09/25/23 21:13 Dose: 80 mg Bisacodyl (Bisacodyl 10 Mg Supp.Rect) 10 mg UT DAILY PRN PRN Reason: Constipation Stop: 09/24/24 15:42 Docusate Sodium (Docusate 100 Mg Capsule) 100 mg PO BID PRN PRN Reason: Constipation Stop: 09/24/24 15:42 Docusate Sodium (Docusate Enema 283 Mg/5 Ml Enema) 283 mg UT DAILY PRN PRN Reason: Constipation Stop: 09/24/24 15:42 Fish Oil (Makoti-3/Fish Oil 1,000 Mg Capsule) 1,000 mg PO BID NAYELY Stop: 09/24/24 20:59 Last Admin: 09/26/23 08:42 Dose: 1,000 mg Heparin Sodium (Porcine) (Heparin 5,000 Unit/Ml Vial) 5,000 unit SUBCUT Q8HR NAYELY Stop: 09/24/24 21:59 Last Admin: 09/26/23 05:44 Dose: 5,000 unit Lactulose (Lactulose 20 Gm/30 Ml Udc) 30 gm PO DAILY PRN PRN Reason: Constipation Stop: 09/24/24 15:42 Melatonin (Melatonin 5 Mg Tablet) 5 mg PO HS [facility] Stop: 09/24/24 21:59 Last Admin: 09/25/23 21:13 Dose: 5 mg Metformin HCl (Metformin 500 Mg Tablet) 500 mg PO DAILY.WITH.SUPPER [facility] Stop: 09/25/24 16:59 Metoprolol Tartrate (Metoprolol Tartrate 25 Mg Tablet) 25 mg PO BID [facility] Stop: 09/24/24 20:59 Last Admin: 09/26/23 08:42 Dose: Not Given Scopolamine (Scopolamine 1 Mg/3 Days Patch) 1 each TRANSDERML Q72HR [facility] Stop: 09/27/24 08:59 Sennosides (Sennosides 8.6 Mg Tablet) 2 tab PO DAILY@12 PRN PRN Reason: If no BM in 2 days Stop: 09/25/24 11:59 Sodium Chloride (Sodium Chloride 0.9 % 10 Ml Syringe) 0 ml IV-PUSH PRN PRN PRN Reason: Flush Stop: 09/24/24 15:42 Tamsulosin HCl (Tamsulosin 0.4 Mg Cap.Er.24h) 0.4 mg PO QHS [facility] Stop: 09/24/24 21:59 Last Admin: 09/25/23 [...] % (Auto) 68.0 Lymph % (Auto) 19.4 Riley % (Auto) 9.4 Eos % (Auto) 2.1 Baso % (Auto) 1.1 Nucleat RBC Rel Count 0.0 Neut # (Auto) 6.2 Lymph # (Auto) 1.8 Riley # (Auto) 0.9 H Eos # (Auto) [...] 24 hour daily monitoring and intervention from Block Cleaner as well as other consulting physicians including internal medicine as well as 24 hour daily sociology adjunct instructor nursing - for medical safe / optimal [...] HTN, CAD s/p CABG who presents to [facility] for rehab following 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 He has continued impaired mobility and impaired independence with ADLsand IADLs requiring PT/OT/CLINICAL PSYCHOLOGIST PRIVATE PRACTICE 5-7 days/week 3 hours/day to maximize safety [...] equipment to enhance the patient's a functional uatsdin Encourage deep breathing exercises and incentive spirometry [...] Allied health note review, nursing note review, project consultant note review, discussion with nursing and case management, and more than 50% of my time was spent on counseling and coordination of care, time spent 70 minutes Patient was personally seen by me, Dr. La, on the day of encounter, reviewed the history and the relevant portions of the chart, including current orders, allied health and project consultant notes, labs/imaging and performed mims elements of exam and I formulated the plan of care and facilitated the medical decision making. Documented By: Donovan La MD [id number] Signed By: <Electronically signed by Donovan La MD> 09/26/23 [facility] Work Phone: 1(760) 587-269305-02-2023 Evaluation note* Encounter Date Diagnosis Assessment Notes [...] the meantime with any issues or concerns. [employer] Other 09-12-2022 NotePROCEDURE: XR HIP LT 2 [...] Electronically authenticated by: KASH AZAR Date: 2022-04-24 18:45[id number] Evaluation note* Encounter Date Diagnosis Assessment Notes [...] in the meantime with any issues present. [employer] Other Evaluation note* Diagnosis Cerebrovascular accident (CVA) due to embolism of precerebral artery (CMS-HCC)- Primary Other cerebrovascular vasospasm and vasoconstriction documented in this encounter [facility] SystemEvaluation note* Diagnosis Onset Date Resolution Status CAD (coronary artery disease) acute CVA (cerebral vascular accident) acute Hyperlipidemia acute Hypertension acute Impaired mobility and activities of daily living acute Vertigo acute History of cardiac catheterization resolved [facility] Work Phone: Evaluation note* Diagnosis Cerebrovascular accident (CVA), unspecified mechanism (CMS-HCC)- Primary Lacunar infarction (CMS-HCC) Unspecified cerebral artery occlusion with cerebral infarction 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) Primary hypertension Unspecified essential hypertension Left arm numbness Disturbance of skin sensation documented in this encounter [facility]* Diagnosis Atherosclerosis of coronary artery of [place] heart with angina pectoris, unspecified vessel or lesion type (CMS/HCC) Cerebrovascular accident (CVA), unspecified mechanism (CMS/HCC) History of PTCA 2 Hyperlipidemia, unspecified hyperlipidemia type 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 Hospitalization History back matti. [employer] Other InstructionsNot on filedocumented in this encounter [facility]Not on filedocumented in this encounter [facility] SystemInstructionsNot on filedocumented in this encounter [facility]* Attachments The following attachments cannot be sent through Care Everywhere. * Stroke Rehab Exercises (Dutch) [facility] Summary Purpose Family History Unknown Family Member Name Dates Details Family [...] History of stroke Unknown Unknown Advance Directives Latest Code Status on File Code Status [...] Referral Specialty Diagnoses / Procedures Referred By Francisco Javier t Referred To Contact Cardiology Diagnoses Atherosclerosis of coronary artery of [place] heart with angina pectoris, unspecified vessel or lesion type (CMS/HCC) Cerebrovascular accident (CVA), unspecified mechanism (CMS/HCC) History of PTCA 2 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) Procedures Transthoracic Echo Complete UT ECHO TTHRC R-T 2D W/WOM-MODE COMPL SPEC&COLR D [place] Evangelista, DO [address] [facility] [address], [address] [address] Referral ID Status Reason Start Date Expiration Date Visits Requested Visits Authorized [id number] Pending Review Perform Procedure 10/24/2023 10/23/2024 1 1 Specialty Diagnoses / Procedures Referred By Contac t Referred To Contact Cardiology Diagnoses Atherosclerosis of coronary artery of [place] heart with angina pectoris, unspecified vessel or lesion type (CMS/HCC) Cerebrovascular accident (CVA), unspecified mechanism (CMS/HCC) History of PTCA 2 Vertigo as late effect of stroke Procedures Holter Or Event Diplomatic Officer [place] Evangelista, DO [address] [facility] [address] [place] [address] Referral ID Status Reason Start Date Expiration Date V isits Requested Visits Authorized [id number] Pending Review 10/24/2023 10/23/2024 1 1 Specialty Diagnoses / Procedures Referred By Contac t Referred To Contact Diagnoses Cerebrovascular accident (CVA) due to embolism of precerebral artery (CMS-HCC) Other cerebrovascular vasospasm and vasoconstriction Procedures Event Monitor (In Office) Prasanna Thornton APRN-CNP [address] [facility] [address] [place] [id number] Referral ID Status Reason Start Date Expiration Date V isits Requested Visits Authorized [id number] Pending Review 09/26/2023 09/25/2024 1 1 Chief [...] section and content) DATE CREATED AUTHOR 01/23/2018 [facility] DATE CREATED AUTHOR AUTHOR'S ORGANIZ ATION 06/06/2018 [facility] DATE CREATED AUTHOR AUTHOR'S ORGANIZ ATION [facility]2021 [facility] DATE CREATED AUTHOR AUTHOR'S ORGANIZ ATION 05/09/2022 [facility] DATE CREATED AUTHOR AUTHOR'S ORGANIZ ATION 05/06/2023 [facility] DATE CREATED AUTHOR AUTHOR'S ORGANIZ ATION 05/06/2023 [employer] DATE CREATED AUTHOR AUTHOR'S ORGANIZ ATION 09/28/2023 [facility] DATE CREATED AUTHOR AUTHOR'S ORGANIZ ATION 10/14/2023 [facility] DATE CREATED AUTHOR AUTHOR'S ORGANIZ ATION 10/23/2023 [facility] REASON FOR VISIT (unrecogniz ed section and content) Reason Onset Date Comments Transition Of Care 10/05/2023 Reason Comments BELÉN Reason Comments Hospital Follow-up [facility] discharge Care Teams (unrecognized sec tion and content) Crtt Relationship Specialty Start Date End Date Sherif Paredes MD [address] [place] [address] PCP - General Family Medicine 07/09/17 Team [...] 2023 End: October 04, 2023 Shaista Galicia , FELIPE Other Provider Active Start: ebruary 2023 End: October 04, 2023 Harriet Enriquez , FELIPE Other Provider Active Star t: September 25, 2023 End: October 04, 2023 Carmen Burris RN Other Provider Active Start : September 25, 2023 End: October 04, 2023 Shreya Mendieta , FELIPE Other Provider Active Start: ebruary 2023 End: October 04, 2023 Richa Butler RN Other Provider Active Start: Fe bruary 4 End: October 04, 2023 Sole Ellington MD Other Provider Active Start: September 25, 2023 End: October 04, 2023 Prem Carrasco MD Other Provider Active Start: 2023 End: October 04, 2023 Catie North [...] Harley MD Other Provider Active Start: Sep [place] 2023 End: October 04, 2023 ANTWAN Gonzalez Other Provider Active St art: September 25, 2023 End: October 04, 2023 Rebekah Rodríguez APRN Other Provider Active Star t: September 25, 2023 End: October 04, 2023 Fletcher Pollard MD Other Provider Active Start: September 25, 2023 End: October 04, 2023 Gui Longo MD Other Provider Active Start: 2023 End: October 04, 2023 Alexx Garcia MD Other Provider Active Start: Sep [facility] 2023 End: October 04, 2023 Arlene Mccall MD Other Provider Active Star t: September 25, 2023 End: October 04, 2023 Rohit Toure MD Other Provider Active Start: 2023 End: October 04, 2023 Radha Islas DO Other Provider Active Start: 2023 End: October 04, 2023 Crow Ceballos , Other Provider Active Start : September 25, 2023 End: October 04, 2023 Dominic Bo , Other Provider Active Sta rt: September 25, 2023 End: October 04, 2023 Sarah Malhotra APRN Other Provider Active Start: September 25, 2023 End: October 04, 2023 Sav Malcolm DO Other Provider Active Start: September 25, [...] Saxena MD Other Provider Active Start: 2023 End: October 04, 2023 Triston Camp MD Other Provider Active S tart: September 25, 2023 End: October 04, 2023 Lee Dumont , DO Other Provider Active Star t: September 25, 2023 End: October 04, 2023 Jewels Garrett APRN Other Provider Active S tart: September 25, 2023 End: October 04, 2023 Kandice Cast DO Other Provider Active Start: September 25, 2023 End: October 04, 2023 Yuli Dan , FELIPE Other Provider Active Start: ebruary 2023 End: October 04, 2023 Team Status: Active Member Role Status Dates Sherif Paredes MD Primary Care Provider Active Start: September 26, 2023 Donovan La MD Admit Provid er, Attending Provider, Other Provider Active Start: September 26, 2023 Jessica Barebr RN Other Provider Active Star t: September 26, 2023 Gabbie Heredia RN Other Provider Active Start : September 26, 2023 Shaista Galicia RN Other Provider Active Start: ruary 2023 Harriet Enriquez RN Other Provider Active Star t: September 26, 2023 Carmen Burris RN Other Provider Active Start : September 26, 2023 Shreya Mendieta RN Other Provider Active Start: ary 2023 Richa Butler RN Other Provider Active Start: bruary 2023 Sole Ellington MD Other Provider Active Start: September 26, 2023 Prem Carrasco MD Other Provider Active Start: ary 2023 Catie North APRN Other Provider Active [...] Alex Hernandes MD Other Provider Active Start: ary 2023 Jessie Andrea APRN Other Provider Active Start: September 26, 2023 Hali Springer MD Other Provider Active Start: September 26, 2023 Fercho Newby MD Other Provider Active Start: ebruary 2023 Adriana Ling MD Other Provider Active Start: September 26, 2023 Saloni Esposito MD Other Provider Active Start: September 26, 2023 Kay Blackburn , Other Provider Active Start: September 26, 2023 Lindsey Mcghee MD Other Provider Active Start: 2023 Bahman Harley MD Other Provider Active Start: Sep Kell Dyer , RN DIABETES EDUCATOR-C Other Provider Active St art: September 26, 2023 Rebekah Rodríguez APRN Other Provider Active Star t: September 26, 2023 Fletcher Pollard MD Other Provider Active Start: September 26, 2023 Gui Longo MD Other Provider Active Start: 2023 Alexx Garcia MD Other Provider Active Start: Sep Arlene Mccall MD Other Provider Active Star t: September 26, 2023 Rohit Toure MD Other Provider Active Start: [id number] Radha Islas , Other Provider Active Start: 2023 Crow Ceballos [...] Naye Saxena MD Other Provider Active Start: ebru2023 Triston Camp MD Other Provider Active S tart: September 26, 2023 Lee Dumont , DO Other Provider Active Star t: September 26, 2023 Jewels Garrett APRN Other Provider Active S tart: September 26, 2023 Kandice Cast , Other Provider Active Start: September 26, 2023 Yuli Dan RN Other Provider Active Start: ebruary 2023 Team Status: Active Member Role Status [...] Start : September 26, 2023 Shreya Mendieta , FELIPE Other Provider Active Start: ebruary 2023 Richa [...] Alex Hernandes MD Other Provider Active Start: ebruary 2023 Jessie Andrea APRN Attending Merry soliman, Other Provider Active Start: September 26, 2023 Hali Springer MD Other Provider Active Start: September 26, 2023 Fercho Newby MD Other Provider Active Start: ebruary 2023 Adriana Ling MD Other Provider Active Start: September 26, 2023 Saloni Esposito MD Other Provider Active Start: September 26, 2023 Kay Blackburn DO Other Provider Active Start: September 26, 2023 Lindsey Mcghee MD Other Provider Active Start: 2023 Bahman Harley MD Other Provider Active Start: Sep Kell Dyer , RN DIABETES EDUCATOR-C Other Provider Active St art: September 26, [...] tart: September 26, 2023 Lee Dumont , Other Provider Active Star t: September 26, 2023 Jewels Garrett APRN Other Provider Active S tart: September 26, 2023 Kandcie Cast , Other Provider Active Start: September 26, 2023 Yuli Dan RN Other Provider Active Start: 2023 Team Status: Active Member Role Status Dates Sherif Paredes MD Primary Care Provider Active Start: October 03, 2023 Donovan La MD Admit Provid er, Other Provider Active Start: October 03, 2023 Jessica Barber RN Other Provider Active Star t: October 03, 2023 Gabbie Heredia RN Other Provider Active Start : October 03, 2023 Shaista Galicia RN Other Provider Active Start: eb2023 Harriet Enriquez RN Other Provider Active Star t: October 03, 2023 Carmen Burris RN Other Provider Active Start : October 03, 2023 Shreya Mendieta RN Other Provider Active Start: eb2023 Richa Butler RN Other Provider Active Start: 2023 Sole Ellington MD Other Provider Active Start: October 03, 2023 Prem Carrasco MD Other Provider Active Start: eb2023 Catie North APRN Other Provider Active Start: [...] Harley MD Other Provider Active Start: Sep ANTWAN Gonzalez Other Provider Active St art: October 03, 2023 Rebekah Rodríguez , NAN Other Provider Active Star t: October 03, [...] Star t: October 03, 2023 Carmen Burris RN Other Provider Active Start : October 03, 2023 Shreya Mendieta , FELIPE Other Provider Active Start: 2023 Richa Butler , FELIPE Other Provider Active Start: 2023 Sole Ellington MD Other Provider Active Start: October 03, 2023 Prem Carrasco MD Other Provider Active Start: eb2023 Catie North , GRAIN ELEVATOR MOTOR STARTER Other Provider Active Start: October 03, 2023 Aayush Faith , Other Provider Active Start : October 03, 2023 Fuentes Nazario MD Other Provider Active Start : October 03, 2023 Cesar Parr , DO Other Provider Active Start: October [...] Dyer NP-C Other Provider Active St art: October 03, [...] Start: October 03, 2023 Sav Malcolm , DO Other Provider Active Start: October 03, 2023 Angel Houston MD Other Provider Active Sta rt: October 03, 2023 Carmen Lipscomb , GRAIN ELEVATOR MOTOR STARTER Other Provider Active Start : October 03, 2023 Fouzia Leavitt , GRAIN ELEVATOR MOTOR STARTER Other Provider Active St art: October 03, 2023 Naye Saxena MD Other Provider Active Start: F ebruary 2023 Triston Camp MD Other Provider Active S tart: October 03, 2023 Lee Dumont , DO Other Provider Active Star t: October 03, 2023 Jewels Garrett , GRAIN ELEVATOR MOTOR STARTER Other Provider Active S tart: October 03, 2023 Kandice Cast , DO Other Provider Active Start: October 03, 2023 Yuli Dan RN Other Provider Active Start: F ebruary 2023 Hernan Minaya MD Attending Provider Active Star t: October 03, 2023 Crtt Relationship Specialty Start Date End Date Sherif Paredes MD [address] [place] [address] PCP - General Family Medicine 07/09/17 Crtt Relationship Specialty Start Date End Date Sherif Paredes MD [address] [place] [address] PCP - General Family Medicine 07/09/17 Crtt Relationship Specialty Start Date End Date Sherif Paredes MD [address] [place] [address] PCP - General Family [facility] 07/09/17 Crtt Relationship Specialty Start Date End Date Shreif Paredes MD [address] [place] [address] PCP - General 04/28/20 Lake Evangelista DO [address] [address] [place] [address] PCP - [employer] PCP 08/13/23 Dena Keith, import/export analystDirector Of Entertainment 10/05/23 10/24/23 FOR RECORDS PERTAINING TO PATIENTS WHO ARE [...] BE BASED ON THE PRIMARY CLINICAL RECORDS. [facility] [employer] provides no warranty or guarantee of the accuracy or completeness of information in this document.
[2023-10-25 10:59] LABS: Chol HDL Ratio 5.3; Cholesterol 196 mg/dL (<=200); HDL Cholesterol 37 mg/dL (40-60); Triglycerides 240 mg/dL (<=150)
[2023-10-26 04:07] LABS: C-Reactive Protein, Cardiac 1.93 mg/L (0.00-3.00)
== END 2023-10-25 08:55 | disposition home or self-care (01) ==
LOC: LAB 08:55
PROVIDERS: PCP Family Medicine; Visit Provider Internal Medicine Cardiovascular Disease
DX: I25.119 Atherosclerotic heart disease of native coronary artery with unspecified angina pectoris (principal); I63.9 Cerebral infarction, unspecified; Z98.61 Coronary angioplasty status; E78.5 Hyperlipidemia, unspecified
CPT/HCPCS: 36415; 80061; 86140

== ENCOUNTER 2024-05-14 08:25 | Outpatient (OUT) | payer MEDICARE, SELFPAY ==
--- OUTSIDE RECORDS SUMMARY | 2024-05-14 08:33 | XMS_ITS | CCD ---
Author Organization [facility] Care Team Providers Care Embalmer/Funeral Director Name Role Phone SYSTEM, PROVIDER NOT IN Unavailable Unavaila SHERIF Mathias Unavailable Unavailable KAY JEAN Unavailable Unavailable MARIA TERESA, JAILENE Unavailable Unavailable UDREA, PETRE Unavailable Unavailable SYSTEM, PROVIDER NOT IN Unavailable Unavaila ble JAMESON SHERIDAN Unavailable Unavailable SHANTI, DEVYN Unavailable Unavailable MARIA TERESA, JAILENE Unavailable Unavailable SYSTEM, PROVIDER NOT IN Unavailable Unavaila SIDDHARTH Medellin Unavailable Unavailable UNKNOWN, PROVIDER Unavailable Unavailable SHERIF [...] Attending Unavailable HAY, DR KNIGHT Consulting Unavailable TROTTI, GIROLAMO Consulting Unavailable REINMACARIO, DR CAITIE Roque Attending Unavailabl e REINECK, DR CAITIE Roque Consulting Unavailabl e DEFBHUPENDRA, DR GORMAN Primary Care Unavailable HONG, DR CAITIE Roque Admitting Unavailabl e ZIEBNELSON, DR KASH Richardson Consulting Unavailable GWENDOLYN BUNN Consulting Unavailable Jean Carlos, Dr. Lake Chan Attending Unava ilable Jean Carlos, Dr. Lake Chan Referring Unava ilable Lena, Dr. Sherif Castro Primary Care Unava ilSherif Keane MD Primary Care Provider [phone] MD Sherif Paredes Primary Care Provider [phone] MD Donovan La Admit Provider [phone] MD Donovan La Attending Provider FELIPE Barber Other Provider Unavailable FLEIPE Heredia Other Provider Unavailable FELIPE Galicia Other Provider Unavailable FELIPE Enriquez Other Provider Unavailable FELIPE Burris Other Provider Unavailable FELIPE Mendieta Other Provider Unavailable FELIPE Butler Other Provider Unavailable MD Sole Ellington Other Provider MD Prem Carrasco Other Provider Unavailable Dials, TEACHERS' ASSISTANT Catie M Other Provider DO Aayush Faith Other Provider MD Fuentes Nazario Other Provider [phone] DO Cesar Parr Other Provider [phone] MD Emanuel Stevenson Other Provider MD Niurka Chung Other Provider MD Alex Hernandes Other Provider Unavailable Zully TEACHERS' ASSISTANTAlonso Roman Other Provider MD Hali Springer Other Provider MD Fercho Newby Other Provider MD Adriana Ling Other Provider MD Saloni Esposito Other Provider DO Kay Blackburn Other Provider [phone] MD Lindsey Mcghee Other Provider MD Bahman Harley Other Provider JOANNE Dyer-C Kell Chaves Other Provider Marcos TEACHERS' ASSISTANTAlonso Palma Other Provider Unavailable MD Fletcher Pollard Other Provider MD Gui Longo Other Provider MD Alexx Garcia Other Provider MD Arlene Mccall Other Provider Unavailable MD Rohit Toure Other Provider DO Radha Islas Other Provider DO Crow Ceballos Other Provider DO Dominic Bo Other Provider [phone] NAN Malhotra Other Provider DO Sav Malcolm Other Provider MD Angel Houston Other Provider NAN Lipscomb Other Provider [phone] NAN Leavitt Other Provider MD Naye Saxena Other Provider MD Triston Camp Other Provider [phone] DO Tim Lee T Other Provider NAN Garrett Other Provider Unavaila ble SegunDO connor Yamatt Other Provider FELIPE Dan Other Provider Unavailable FAYRANCE, SHERIF Lofton Attending Unavailable DEFRANCE, SHERIF Lofton Referring Unavailable DEFRANCE, SHERIF Lofton Primary Care Unavailable DEFRANCE, SHERIF Lofton Referring Unavailable DEFRANCE, SHERIF Lofton Primary Care Unavailable DEFRANCE, SHERIF Lofton Referring Unavailable DEFRANCE, SHERIF Lofton Primary Care Unavailable DEFRANCE, SHERIF Lofton Referring Unavailable DEFRANCE, SHERIF Lofton Primary Care Unavailable Defrance Sherif ORTEGA Primary Care Provider Lake Evangelista DO Unavailable Dena Keith RN Unavailable Unavailable LAKE EVANGELISTA Referring Unavailable DEFRANCE, SHERIF CASTRO Primary Care Unavailab GOPAL Cuellar Admitting Unavailable GOPAL NOVA Attending Unavailable PHYSICIAN, UNKNOWN Referring Unavailable DEFRANCE, SHERIF Lofton Primary Care Unavailable JOHNATHAN PINTO Consulting Unavailable ROLAND BROWN Consulting Unavailable JANICE ZAMORANO Consulting Unavailable MAGSI, RAYAN Referring Unavailable DEFRANCE, SHERIF Lofton Primary Care Unavailable MAGSI RAYAN Referring Unavailable DEFRANCE, SHERIF Lofton Primary Care Unavailable PRASANNA THORNTON Referring Unavailable DEFRANCE, SHERIF Lofton Primary Care Unavailable Donovan La Admitting Unavaila ble Defbhupendra, Sherif Primary Care Unavailable Jessica Barber Consulting Unavailable Hernan Minaya Attending Unavailable Gabbie Heredia Consulting Unavailable Shaista Galicia Consulting Unavailable Harriet Enriquez Consulting Unavailable Carmen Burris Consulting Unavailable Shreya Mendieta Consulting Unavailable Richa Butler Consulting Unavailable Sole Ellington Consulting Unavailable Prem Carrasco Consulting Unavailable Catie North Consulting Unavailable Aayush Faith Consulting Unavailable Fuentes Nazario Consulting Unavailable Cesar Parr Consulting UnavailEmanuel Yanes Consulting Unavailable Niurka Chung Consulting Unavailable Alex Hernandes Consulting Unavailable Jessie Andrea Consulting UnavailHali Avila Consulting Unavailable Fercho Newby Consulting Unavailable Adriana iLng Consulting Unavailable Saloni Esposito Consulting Unavailable Kay Blackburn Consulting Unavailable Lindsey Mcghee Consulting Unavailable Bahman Harley Consulting Unavailable Kell Dyer Consulting Unavailable Rebekah Rodríguez Consulting Unavailable Fletcher Pollard Consulting Unavailab Gui Bray Consulting Unavailable Alexx Garcia Consulting Unavailable Arlene Mccall Consulting Unavailable Rohit Toure Consulting Unavailable Radha Islas Consulting Unavailable Crow Ceballos Consulting Unavailable MiniDominic vega Consulting Unavailable ObikaSarah Consulting Unavailable Sav Malcolm Consulting Unavailable Daromar, Obaychichih Minerva Consulting Unavailable Carmen Lipscomb Consulting Unavailable Fouzia Leavitt Consulting Unavailable Alahmad Alaa Consulting Unavailable Triston Camp Consulting Unavailable Lee Dumont Consulting Unavailable Jewels Garrett Consulting Unavailable Kandice Cast Consulting Unavailable Yuli Dan Consulting Unavailable Sherif Paredes Primary Care Unavailable Keny Ayala Attending Unavailable Keny Ayala Admitting Unavailable LAKE EVANGELISTA Attending Unavailable SHERIF PAREDES Primary Care Unavailab LAKE Montenegro Referring Unavailable SHERIF PAREDES Primary Care Unavailab LAKE [place] Attending Unavailable SHERIF PAREDES Primary Care Unavailab sridevi Allergies Allergy Classification Reported Allergen(s) Allergy Type Date of Onset Reaction(s) Facility (11 sources) atorvastatin; Translations: [ATORVASTATIN] Drug Allergy 6 [facility], [facility] Medications Current Medications Medication Drug Class(es) Dates Sig (Normalized) Sig (Original) acetaminophen 500 mg oral tablet (1 source) Start: 10-03-2023 take 500 mg by mouth every four hours Acetaminophen Active 500 MG PO Q4H 0 October 03, 2023 12:00am aspirin 81 mg chewable tablet (17 sources) Platelet Aggregation Inhibitor, Nonsteroidal Anti-inflammatory Drug [...] meclizine hydrochloride 25 m g oral tablet (6 sources) Antiemetic Start: 10-03-2023 meclizine (Ant ivert) [...] completed) metoprolol tartrate 25 mg oral tablet (18 sources) beta-Adrenergic Ari Start: 09-25-2023 take 0.5 [...] Evangelista DO Active omega-3 acid ethyl esters (mcc) 1000 mg oral capsule (9 sources) Start: 09-25-2023 [place]-3 Acid Ethyl Esters (Lovaza) 1 gram capsule [...] 72 hr scopolamine 0.0139 mg/hr transdermal system (8 sources) Anticholinergic Start: 09-26-2023 End: 10-24-2023 apply 1 dose transdermal route once daily scopolamine (TRANSDERM-SCOP) 1 mg/[address] 1 patch on the skin every third day. 0 09/26/2023 Active Start: 09-25-2023 End: 10-03-2023 Scopolamine Base Active 1 PA [facility] TRANSDERML Every 72 hours 10 October 03, 2023 2:10pm simvastatin 40 mg oral tablet (16 sources) HMG-CoA Reductase Inhibitor Start: 10-29-2023 take 1 tablet by mouth once daily simvastatin (ZOCOR) 40 mg tablet Take 1 tablet (40 mg total) by mouth nightly. 0 10/29/2023 Active Start: 09-12-2022 take 1 tablet by letty th at bedtime Simvastatin 40 MG Oral Tablet TAKE 1 TABLET AT BEDTIME Quantity: 90 Refills: 3 Ordered: 21-Nov-2022 Lake Evangelista DO Start : 12-Sep-2022 Active Start: 05-04-2020 End: 10-03-2023 take 20 mg by mouth once daily at bedtime Simvastatin Active 20 MG PO Daily at bedtime October 03, 2023 2:10pm End: 10-29-2023 SIMVASTATIN ORAL Take by letty th. 0 10/29/2023 Discontinued (Reorder) SIMVASTATIN ORAL Take by mouth. 0 Active take 1 tablet by letty th at bedtime Simvastatin 40 MG Oral Tablet TAKE 1 TABLET AT BEDTIME. Quantity: 90 Refills: 0 Ordered: 25-Apr-2022 Lake Evangelista DO Active tamsulosin hydrochloride 0.4 mg oral capsule (11 sources) alpha-Adrenergic Ari Start: 09-25-2023 End: 10-22-2023 take 1 capsule by mouth once daily tamsulosin (Flomax) 0.4 mg 24 hr capsule Take 1 capsule (0.4 mg) by mouth once daily. 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; Translations: [Coronary atherosclerosis] Onset: 03-26-2018 01-31-2018 Chronic Coronary atherosclerosis and other heart disease (1 source) Coronary atherosclerosis and other heart disease Onset: 03-26-2018 Disorders of lipid metabolism (20 sources) Hyperlipidemia; Translations: [Other and unspecified hyperlipidemia] Onset: 09-25-2023 09-27-2023 Chronic Essential hypertension (20 sources) Essential (primary) hypertension; Translations: [Hypertensive disorder] Onset: 01-23-2018 01-31-2018 Chronic Hyperplasia of prostate (5 sources) Benign prostatic hyperplasia; Translations: [Benign prostatic hyperplasia without lower urinary tract symptoms] 01-31-2018 Chronic Late effects of cerebrovascular disease (4 sources) 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; Translations: [Vertigo as late effect of stroke] Onset: 02-06-2022 10-24-2023 Chronic Malaise and fatigue (1 source) Other malaise; Translations: [Other malaise] Onset: 01-23-2018 Episodic Occlusion or stenosis of precerebral arteries (20 sources) Bilateral stenosis of carotid arteries; Translations: [Occlusion and stenosis of carotid artery without mention of cerebral infarction] Onset: 12-06-2021 Resolved: 12-06-2021 Chronic Other aftercare (1 source) 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; Translations: [AIR TRAFFIC CONTROLLER CURRENT USE OF ASPIRIN] Onset: 04-26-2022 Episodic Other aftercare (1 source) 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 therapy; Translations: [OTH PENITENTIARY CURRENT DRUG THERAPY] Onset: 04-26-2022 Episodic Other and ill-defined cerebrovascular disease (1 source) Cerebrovascular disease; Translations: [Other cerebrovascular vasospasm and vasoconstriction] 09-26-2023 Chronic Other and ill-defined cerebrovascular disease (1 source) Other cerebrovascular vasospasm and vasoconstriction; Translations: [Other cerebrovascular vasospasm and vasoconstriction] Onset: 09-26-2023 Chronic Other circulatory disease (11 sources) History of cerebrovascular accident; Translations: [Personal history of transient ischemic attack (TIA), and cerebral infarction without residual deficits] 11-13-2023 Episodic Other circulatory disease (2 sources) Personal history of transient ischemic attack (TIA), and cerebral infarction without residual deficits; Translations: [Personal history of transient ischemic attack (TIA), and cerebral infarction without residual deficits] Onset: 11-13-2023 Episodic Other injuries and conditions due to external causes (1 source) History of falling; Translations: [HISTORY OF FALLING] Onset: 04-26-2022 Episodic Other non-traumatic joint disorders (4 sources) Pain in left hip; Translations: [PAIN IN LEFT HIP] Onset: 04-24-2022 Episodic Other nutritional; endocrine; and metabolic disorders (9 sources) Overweight in adulthood with body mass index of 25 or more but less than 30; Translations: [Overweight] Episodic Other nutritional; endocrine; and metabolic disorders (2 sources) Body mass index (BMI) 25.0-25.9, adult; Translations: [Body mass index (BMI) 25.0-25.9, adult] Onset: 05-01-2024 Episodic Residual codes; unclassified (1 source) History of cardiac catheterization; Translations: [Other specified postprocedural states] 09-27-2023 Episodic Residual codes; unclassified (4 sources) Other specified postprocedural states; Translations: [Other postprocedural status] Onset: 09-25-2023 10-04-2023 Episodic Residual codes; unclassified (1 source) Pain, unspecified; Translations: [Pain, unspecified] Onset: 09-20-2023 Episodic Transient cerebral ischemia (7 sources) Transient cerebral ischemic attack, unspecified; Translations: [Transient cerebral ischemia] Onset: 11-25-2015 01-31-2018 Chronic Transient cerebral ischemia (1 source) Transient cerebral ischemia Onset: 11-25-2015 Unclassified (1 source) Unknown / UNK(Unknown) Onset: 01-23-2018 Unclassified (1 source) Numbness / 75() Onset: 09-07-2016 Unclassified (2 sources) Athscl heart disease of twenty-nine palms coronary artery w/o ang pctrs / I25.10(ICD-9) Onset: 03-26-2018 Unclassified (1 source) Coronary angioplasty status / Z98.61(ICD-9) Onset: 03-26-2018 Unclassified (1 source) 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-9) Onset: 03-26-2018 Unclassified (1 source) Family hx of ischem heart dis and oth dis of the circ sys / Z82.49(ICD-9) Onset: 03-26-2018 Unclassified (1 source) BELÉN Onset: 10-22-2023 Unclassified (1 source) intraparenchymal hemorrhage Onset: 09-20-2023 Past or Other Problems Problem Classification Problem Date Documented Da te Episodic/Chronic Conditions associated with dizziness or vertigo (6 sources) Dizziness and giddiness; Translations: [Vertigo] Onset: 01-23-2018 09-26-2023 Episodic Coronary atherosclerosis and other heart disease (12 sources) Post percutaneous transluminal coronary angioplasty; Translations: [Percutaneous transluminal coronary angioplasty status] Onset: 09-15-2021 Episodic E Codes: Fall (1 source) Fall on and from ladder, initial encounter; Translations: [FALL ON AND FROM LADDER INITIAL ENC] Onset: 02-06-2022 Episodic Mood disorders (5 sources) Mood disorders Onset: 09-20-2023 Resolved: 10-22-2023 09-20-2023 Nonspecific chest pain (4 sources) Chest pain, unspecified; Translations: [CHEST PAIN UNSPECIFIED] Onset: 09-13-2021 Episodic Other nervous system disorders (3 sources) Anesthesia of skin; Translations: [Paresthesia of skin] Onset: 01-23-2018 Episodic Other nervous system disorders (6 sources) Numbness of upper limb; Translations: [Anesthesia of skin] Onset: 09-07-2016 01-31-2018 Episodic Other non-traumatic joint disorders (4 sources) Pain in left shoulder; Translations: [PAIN IN LEFT SHOULDER] Onset: 02-04-2022 Episodic Residual codes; unclassified (1 source) Other specified health status; Translations: [Other specified health status] Onset: 09-25-2023 Episodic Superficial injury; contusion (1 source) Contusion of left shoulder, initial encounter; Translations: [CONTUSION LEFT SHOULDER INITIAL ENC] Onset: 02-06-2022 Episodic Unclassified (9 sources) Never smoked tobacco; Translations: [Never a smoker] Unclassified (3 sources) Onset: 10-24-2023 10-24-2023 Results Test Name Value Interpretation Reference Range Facility US carotid doppler BIon 05- US carotid doppler BI [facility] [address] [place] [address] Ultrasound Report Signed Patient: Janice Shultz MR#: [id number] 7 : 1945 Acct:[id number] Age/Sex: 78 / M ADM Date: 12/25/23 Loc: [facility] Room: Type: [facility] Attending Dr: Keny Ayala MD Ordering Provider: Keny Ayala MD Date of Service: 12/25/23 US/US carotid doppler BI: I65.23 Copies to: Keny Ayala MD CAROTID DUPLEX INDICATION: Follow-up known carotid occlusive disease status post right carotid endarterectomy PROCEDURE: Color-flow duplex scanning is used to interrogate the extracranial carotid arterial system, as well as both vertebral arteries. Both carotid bifurcations show some smooth homogeneous plaque formation. The proximal right internal carotid artery shows a highest peak systolic velocity of 32.9 cm/s with an end-diastolic velocity of 14.4 cm/s . The mid internal carotid artery measures 54.6 cm/s peak systolic with an end diastolic velocity of 22.9 cm/s . The distal segment measures 61.8 cm/s peak systolic with an end diastolic velocity of 25.4 cm/s . The velocities of the right common carotid artery are 89.5 cm/s peak systolic and 15.5 cm/s end-diastolic and 55.3 cm/s peak systolic and 14.5 cm/s end diastolic distally. The peak systolic velocity ratio of the internal to the common carotid artery is 1.12 . The external carotid artery measures 98.8 cm/s peak systolic. The right vertebral artery is patent at 62.3 cm/s peak systolic with antegrade flow. The proximal left internal carotid artery shows a highest peak systolic velocity of 90.1 cm/s with an end-diastolic velocity of 30.4 cm/s . The mid internal carotid artery measures 98.8 cm/s peak systolic with an end diastolic velocity of 37.9 cm/s . The distal segment measures 92.6 cm/s peak systolic with an end diastolic velocity of 36 cm/s . The velocities of the left common carotid artery are 63.9 cm/s peak systolic and 19.6 cm/s end-diastolic and 71.3 cm/s peak systolic and 24.7 cm/s end diastolic distally. The peak systolic velocity ratio of the internal to the common carotid artery is 1.39 . The external carotid artery measures 240 cm/s peak systolic. The left vertebral artery is patent at 29.5 cm/s peak systolic with antegrade flow US/US carotid doppler BI IMPRESSION: No hemodynamically significant stenosis is seen in either extracranial internal carotid artery. Both vertebral arteries are patent with antegrade flow Impression dictated by: Keny Ayala M.D.12/25/2023 1:24 PM Dictation Location: [place] [address] Tech: Ana Anders Transcribed By: NAINA 12/25/23 1324 Dictated By: Keny Ayala MD 12/25/23 1323 Signed By: 12/25/23 1324 Normal [facility] TRANSTHORACIC ECHO (TTE) [facility] 11-13-2023 TRANSTHORACIC ECHO (TTE) LIMITED [address], [address] [place] [address] TRANSTHORACIC ECHOCARDIOGRAM REPORT Patient Name: JANICE Sweet Physician: [id number] Sohan Farr MD, [facility] Study Date: 11/13/2023 Ordering Provider: [id number] LAKE EVANGELISTA MRN/PID: [id number] Fellow: Nurse: Heena Fitch RN Date of /Age: 7 1945 / 78 years Tower Supervisor: Sulema Rossi RDCS, RVT Gender: M Additional Staff: Height: 180.34 cm Admit Date: Weight: 82.10 kg Admission Status: BSA / BMI: 2.02 m2 / 25.24 kg/m2 Department Location: [facility] Blood Pressure: 122 /78 mmHg Study Type: TRANSTHORACIC ECHO (TTE) LIMITED Diagnosis/ICD: Cerebral Infarction, unspecified-I63.9; Personal history of transient ischemic attack (TIA), and cerebral infarction without residual deficits-Z86.73 Indication: Hyperlipidemia, [place] and PTCA-2015, Bilateral Carotid Stenosis with CEA CPT Codes: Echo Limited-74987 Study Detail: The following Echo studies were performed: 2D, M-Mode, Doppler and color flow. Agitated saline used as a contrast agent for intraseptal flow evaluation. PHYSICIAN INTERPRETATION: Left Ventricle: Left ventricular systolic function is normal, with an estimated ejection fraction of 60-65%. There are no regional wall motion abnormalities. The left ventricular cavity size is normal. Left ventricular diastolic filling was not assessed. Left Atrium: The left atrium is normal in size. Bubble study is negative with no indication of PFO or atrial septal defect. Right Ventricle: The right ventricle is normal in size. There is normal right ventricular global systolic function. Right Atrium: The right atrium is normal in size. Aortic Valve: The aortic valve is trileaflet. Aortic valve regurgitation was not assessed. Mitral Valve: The mitral valve is mildly thickened. Mitral valve regurgitation was not assessed. Tricuspid Valve: The tricuspid valve is structurally normal. Tricuspid regurgitation was not assessed. Pulmonic Valve: The pulmonic valve is structurally normal. The pulmonic valve regurgitation was not assessed. Pericardium: There is no pericardial effusion noted. Aorta: The aortic root is normal. Systemic Veins: The inferior vena cava appears to be of normal size. CONCLUSIONS: 1. Left ventricular systolic function is normal with a 60-65% estimated ejection fraction. 2. Bubble study is negative with no indication of PFO or atrial septal defect. QUANTITATIVE DATA SUMMARY: 2D MEASUREMENTS: Normal Ranges: Ao Root d: 3.80 cm (2.0-3.7cm) LAs: 3.70 cm (2.7-4.0cm) RVIDd: 3.55 cm (0.9-3.6cm) IVSd: 1.12 cm (0.6-1.1cm) LVPWd: 1.01 cm (0.6-1.1cm) LVIDd: 4.96 cm (3.9-5.9cm) LVIDs: 3.68 cm LV Mass Index: 96.8 g/m2 LV % FS 25.8 % LV SYSTOLIC FUNCTION BY 2D PLANIMETRY (MOD): Normal Ranges: EF-A4C View: 66.7 % (>=55%) AORTIC VALVE: Normal Ranges: LVOT Diameter: 2.30 cm (1.8-2.4cm) [id number] Sohan Farr MD, [facility] Electronically signed on 11/13/2023 at 5:14:44 PM Final Normal [facility] Heart TransthoracicOrdere d By: Sohan Farr on 11-13-2023 LV A4C EF 66.7 [facility] Work Phone: LVIDd 4.96 cm [facility] Work Phone: LVOT diam 2.30 cm [facility] Work Phone: [facility] Work Phone: Heart Transthoracicon [address], [place] [address] TRANSTHORACIC ECHOCARDIOGRAM REPORT Patient Name: JANICE SHULTZ Reading Physician: [id number] Sohan Farr MD, [facility] Study Date: 11/13/2023 Ordering Provider: [id number] LAKE EVANGELISTA MRN/PID: [id number] Fellow: Nurse: Heena Fitch RN Date of /Age: 7 1945 / 78 years Tower Supervisor: Sulema Rossi RDCS, T Gender: M Additional Staff: Height: 180.34 cm Admit Date: Weight: 82.10 kg Admission Status: BSA / BMI: 2.02 m2 / 25.24 kg/m2 Department Location: [facility] Blood Pressure: 122 /78 mmHg Study Type: TRANSTHORACIC ECHO (TTE) LIMITED Diagnosis/ICD: Cerebral Infarction, unspecified-I63.9; Personal history of transient ischemic attack (TIA), and cerebral infarction without residual deficits-Z86.73 Indication: Hyperlipidemia, [place] and PTCA-2014, Bilateral Carotid Stenosis with CEA CPT Codes: Echo Limited-65873 Study Detail: The following Echo studies were performed: 2D, M-Mode, Doppler and color flow. Agitated saline used as a contrast agent for intraseptal flow evaluation. PHYSICIAN INTERPRETATION: Left Ventricle: Left ventricular systolic function is normal, with an estimated ejection fraction of 60-65%. There are no regional wall motion abnormalities. The left ventricular cavity size is normal. Left ventricular diastolic filling was not assessed. Left Atrium: The left atrium is normal in size. Bubble study is negative with no indication of PFO or atrial septal defect. Right Ventricle: The right ventricle is normal in size. There is normal right ventricular global systolic function. Right Atrium: The right atrium is normal in size. Aortic Valve: The aortic valve is trileaflet. Aortic valve regurgitation was not assessed. Mitral Valve: The mitral valve is mildly thickened. Mitral valve regurgitation was not assessed. Tricuspid Valve: The tricuspid valve is structurally normal. Tricuspid regurgitation was not assessed. Pulmonic Valve: The pulmonic valve is structurally normal. The pulmonic valve regurgitation was not assessed. Pericardium: There is no pericardial effusion noted. Aorta: The aortic root is normal. Systemic Veins: The inferior vena cava appears to be of normal size. CONCLUSIONS: 1. Left ventricular systolic function is normal with a 60-65% estimated ejection fraction. 2. Bubble study is negative with no indication of PFO or atrial septal defect. QUANTITATIVE DATA SUMMARY: 2D MEASUREMENTS: Normal Ranges: Ao Root d: 3.80 cm (2.0-3.7cm) LAs: 3.70 cm (2.7-4.0cm) RVIDd: 3.55 cm (0.9-3.6cm) IVSd: 1.12 cm (0.6-1.1cm) LVPWd: 1.01 cm (0.6-1.1cm) LVIDd: 4.96 cm (3.9-5.9cm) LVIDs: 3.68 cm LV Mass Index: 96.8 g/m2 LV % FS 25.8 % LV SYSTOLIC FUNCTION BY 2D PLANIMETRY (MOD): Normal Ranges: EF-A4C View: 66.7 % (>=55%) AORTIC VALVE: Normal Ranges: LVOT Diameter: 2.30 cm (1.8-2.4cm) [id number] Sohan Farr MD, FACC Electronically signed on 11/13/2023 at 5:14:44 PM Final Sohan De La Cruz M D - 11/13/2023 [facility] [address] [facility], [address], [place] [address] TRANSTHORACIC ECHOCARDIOGRAM REPORT Patient Name: JANICE SHULTZ Reading Physician: [id number] Sohan Farr MD, [facility] Study Date: 11/13/2023 Ordering Provider: [id number] [place] JEAN CARLOS MRN/PID: [id number] Fellow: Nurse: Heena Fitch RN Date of /Age: 7 1945 / 78 years Tower Supervisor: Sulema Rossi RDCS, RVT Gender: M Additional Staff: Height: 180.34 cm Admit Date: Weight: 82.10 kg Admission Status: BSA / BMI: 2.02 m2 / 25.24 kg/m2 Department Location: [facility] Blood Pressure: 122 /78 mmHg Study Type: TRANSTHORACIC ECHO (TTE) LIMITED Diagnosis/ICD: Cerebral Infarction, unspecified-I63.9; Personal history of transient ischemic attack (TIA), and cerebral infarction without residual deficits-Z86.73 Indication: Hyperlipidemia, IN and PTCA-2015, Bilateral Carotid Stenosis with CEA CPT Codes: Echo Limited-53060 Study Detail: The following Echo studies were performed: 2D, M-Mode, Doppler and color flow. Agitated saline used as a contrast agent for intraseptal flow evaluation. PHYSICIAN INTERPRETATION: Left Ventricle: Left ventricular systolic function is normal, with an estimated ejection fraction of 60-65%. There are no regional wall motion abnormalities. The left ventricular cavity size is normal. Left ventricular diastolic filling was not assessed. Left Atrium: The left atrium is normal in size. Bubble study is negative with no indication of PFO or atrial septal defect. Right Ventricle: The right ventricle is normal in size. There is normal right ventricular global systolic function. Right Atrium: The right atrium is normal in size. Aortic Valve: The aortic valve is trileaflet. Aortic valve regurgitation was not assessed. Mitral Valve: The mitral valve is mildly thickened. Mitral valve regurgitation was not assessed. Tricuspid Valve: The tricuspid valve is structurally normal. Tricuspid regurgitation was not assessed. Pulmonic Valve: The pulmonic valve is structurally normal. The pulmonic valve regurgitation was not assessed. Pericardium: There is no pericardial effusion noted. Aorta: The aortic root is normal. Systemic Veins: The inferior vena cava appears to be of normal size. CONCLUSIONS: 1. Left ventricular systolic function is normal with a 60-65% estimated ejection fraction. 2. Bubble study is negative with no indication of PFO or atrial septal defect. QUANTITATIVE DATA SUMMARY: 2D MEASUREMENTS: Normal Ranges: Ao Root d: 3.80 cm (2.0-3.7cm) LAs: 3.70 cm (2.7-4.0cm) RVIDd: 3.55 cm (0.9-3.6cm) IVSd: 1.12 cm (0.6-1.1cm) LVPWd: 1.01 cm (0.6-1.1cm) LVIDd: 4.96 cm (3.9-5.9cm) LVIDs: 3.68 cm LV Mass Index: 96.8 g/m2 LV % FS 25.8 % LV SYSTOLIC FUNCTION BY 2D PLANIMETRY (MOD): Normal Ranges: EF-A4C View: 66.7 % (>=55%) AORTIC VALVE: Normal Ranges: LVOT Diameter: 2.30 cm (1.8-2.4cm) [id number] Sohan Farr MD, [facility] Electronically signed on 11/13/2023 at 5:14:44 PM Final [facility] Work Phone: Glucose Glucometer (BldC) [M ass/Vol]Ordered By: Donovan La on 10-04-2023 Glucose [Mass/Vol] 116 mg/dL [facility] Comment on above: Random Glucose Refer ence Range is dependent on time and content of last meal. Glucose of more than 200 mg/dL in a nonstressed, ambulatory subject supports the diagnosis of Diabetes Mellitus. Glucose Poct Glucometerson 0 10-04-2023 Commemt1 Glu2: Cleaned Meter Normal [facility] Comment on above: Result Comment: PERF ORMED BY: [place] [address] PATHOLOGIST SHIRRING TENDER DENIS PARADA M.D. Performed By: #### C BC, BMP #### [address] Glucose [Mass/Vol] 116 mg/dL Normal [facility] Comment on above: Result Comment: [place] Glucose Reference Range is dependent on time and content of last meal. Glucose of more than 200 mg/dL in a nonstressed, ambulatory subject supports the diagnosis of Diabetes Mellitus. Performed By: #### C BC, BMP #### [facility] [address] No Panel InformationOrdered By: Donovan La on 10-04-2023 Bedside Glucose Comment Glu2: cleaned meter [facility] Glucose Poct Glucometerson 0 10-03-2023 Glucose [Mass/Vol] 119 mg/dL Normal [facility] Comment on above: Result Comment: [place] om Glucose Reference Range is dependent on time and content of last meal. Glucose of more than 200 mg/dL in a nonstressed, ambulatory subject supports the diagnosis of Diabetes Mellitus. PERFORMED BY: [place] [address] PATHOLOGIST SHIRRING TENDER DENIS PARADA M.D. Performed By: #### G LULS #### Point of Care testing , Glucose [Mass/Vol] 119 mg/dL Normal [facility] Comment on above: Result Comment: [place] om Glucose Reference Range is dependent on time and content of last meal. Glucose of more than 200 mg/dL in a nonstressed, ambulatory subject supports the diagnosis of Diabetes Mellitus. PERFORMED BY: [address] [place] [address] PATHOLOGIST SHIRRING TENDER DENIS PARADA M.D. Performed By: #### C BC, BMP #### [facility] [address] Glucose Poct Glucometerson 0 10-02-2023 Glucose [Mass/Vol] 112 mg/dL Normal [facility] Comment on above: Result Comment: [place] om Glucose Reference Range is dependent on time and content of last meal. Glucose of more than 200 mg/dL in a nonstressed, ambulatory subject supports the diagnosis of Diabetes Mellitus. PERFORMED BY: [place] [id number] PATHOLOGIST SHIRRING TENDER DENIS PARADA M.D. Performed By: #### G LULS #### Point of Care testing , Glucose [Mass/Vol] 111 mg/dL Normal [facility] Comment on above: Result Comment: [facility] Glucose Reference Range is dependent on time and content of last meal. Glucose of more than 200 mg/dL in a nonstressed, ambulatory subject supports the diagnosis of Diabetes Mellitus. PERFORMED BY: [place] [address] PATHOLOGIST SHIRRING TENDER DENIS PARADA M.D. Performed By: #### G LULS #### Point of Care testing , CT head/brain wo conon 10-01 CT head/brain wo con [facility] [place] [address] [place] [address] Scan Report Signed Patient: Janice Shultz MR#: [id number] 7 : 1945 Acct:[id number] Age/Sex: 78 / M ADM Date: 09/25/23 Loc: Room: [address] [place] [address] Type: ADM IN Attending Dr: Donovan La [...] Kelvin Vasquez M.D.10/01/2023 9:43 AM Dictation Location: [place] [address] Transcribed By: NAINA 10/01/23942 Dictated By: Kelvin Vasquez II, MD 10/01/2341 Signed By: 10/01/23942 Normal [facility] Glucose Poct Glucometerson 0 10-01-2023 Commemt1 Glu2: Cleaned Meter Normal [facility] Comment on above: Result Comment: PERF ORMED BY: [facility] [address] [facility] [address] PATHOLOGIST SHIRRING TENDER DENIS PARADA M.D. Performed By: #### G LULS #### Point of Care testing , Glucose [Mass/Vol] 111 mg/dL Normal [facility] Comment on above: Result Comment: [place] Glucose Reference Range is dependent on time and content of last meal. Glucose of more than 200 mg/dL in a nonstressed, ambulatory subject supports the diagnosis of Diabetes Mellitus. Performed By: #### G LULS #### Point of Care testing , Glucose [Mass/Vol] 112 mg/dL Normal [facility] Comment on above: Result Comment: [place] Glucose Reference Range is dependent on time and content of last meal. Glucose of more than 200 mg/dL in a nonstressed, ambulatory subject supports the diagnosis of Diabetes Mellitus. PERFORMED BY: [facility] [address] [facility] [place] [address] PATHOLOGIST SHIRRING TENDER DENIS PARADA M.D. Performed By: #### G LULS #### Point of Care testing , Basic Metabolic Panelon 09-13 Anion gap [Moles/Vol] 10.5 mmol/L Normal 6.0-15.0 [facility] Comment on above: Performed By: #### C BC, BMP #### [facility] [address] [place] [address] [place] Calcium [Mass/Vol] 9.3 mg/dL Normal 8.6-10.3 [facility] Comment on above: Performed By: #### C BC, BMP #### [facility] [address] [place] [address] [place] Chloride [Moles/Vol] 102 mmol/L Normal 98-107 [facility] Comment on above: Performed By: #### C BC, BMP #### [place] [address] [place] CO2 [Moles/Vol] 26.8 mmol/L Normal 21.0-31.0 [facility] Comment on above: Performed By: #### C BC, BMP #### [place] [address] [place] Creatinine [Mass/Vol] 1.15 mg/dL Normal 0.70-1.30 [facility] Comment on above: Performed By: #### C BC, BMP #### [place] [address] [place] Creatinine Clr Calc Pharmacy 58.20 Normal [facility] Comment on above: Result Comment: PERF ORMED BY: [place] [address] PATHOLOGIST SHIRRING TENDER DENIS PARADA M.D. Performed By: #### C BC, BMP #### [place] [address] [place] GFR/1.73 sq M.predicted MDRD (S/P/Bld) [Vol rate/Area] mL/min/{1.73_m2} Normal [facility] Comment on above: Performed By: #### C BC, BMP #### [place] [address] [place] Glucose [Mass/Vol] 105 mg/dL High 70-100 [facility] Comment on above: Result Comment: [facility] Glucose Reference Range is dependent on time and content of last meal. Glucose of more than 200 mg/dL in a nonstressed, ambulatory subject supports the diagnosis of Diabetes Mellitus. ADA recommended reference range Performed By: #### C BC, BMP #### [facility] [address] Potassium [Moles/Vol] 4.3 mmol/L Normal 3.5-5.1 [facility] Comment on above: Performed By: #### C BC, BMP #### [facility] [address] Sodium [Moles/Vol] 135 mmol/L Low 136-145 [facility] Comment on above: Performed By: #### C BC, BMP #### [facility] [address] Urea nitrogen [Mass/Vol] 25 mg/dL Normal 7-25 [facility] Comment on above: Performed By: #### C BC, BMP #### [facility] [address] Basophils Auto (Bld) [#/Vol] Ordered By: Tracy Fernandez on 09-30-2023 Basophils (Bld) [#/Vol] 0.1 10*3/uL 0.0-0.2 [facility] Basophils/100 WBC Auto (Bld) Ordered By: Tracy Fernandez on 09-30-2023 Basophils/100 WBC (Bld) 0.8 % . [facility] Calcium [Mass/volume] in Ser um or PlasmaOrdered By: Tracy Fernandez on 09-30-2023 Calcium [Mass/Vol] 9.3 mg/dL 8.6-10.3 [facility] Carbon dioxide, total [Moles /volume] in Serum or PlasmaOrdered By: Tracy Fernandez on 09-30-2023 CO2 [Moles/Vol] 26.8 mmol/L 21.0-31.0 [facility] Chloride [Moles/volume] in S papi or PlasmaOrdered By: Tracy Fernandez on 09-30-2023 Chloride [Moles/Vol] 102 mmol/L 98-107 [facility] Complete Blood Count Auto Di ffon 09-30-2023 Basophils (Bld) [#/Vol] 0.1 10*3/uL Normal 0.0-0.2 [facility] Comment on above: Result Comment: PERF ORMED BY: [place] [address] PATHOLOGIST SHIRRING TENDER DENIS PARADA M.D. Performed By: #### C BC, BMP #### [address] Basophils/100 WBC (Bld) 0.8 % Normal . [facility] Comment on above: Performed By: #### C BC, BMP #### [address] Eosinophils (Bld) [#/Vol] 0.2 10*3/uL Normal 0.0-0.45 [facility] Comment on above: Performed By: #### C BC, BMP #### [address] Eosinophils/100 WBC (Bld) 2.1 % Normal . [facility] Comment on above: Performed By: #### C BC, BMP #### [address] Erythrocyte distribution width (RBC) [Ratio] 13.9 % Normal 12.0-14.8 [facility] Comment on above: Performed By: #### C BC, BMP #### [address] Hematocrit (Bld) [Volume fraction] 42.2 % Normal 38.8-50.0 [facility] Comment on above: Performed By: #### C BC, BMP #### [address] Hemoglobin (Bld) [Mass/Vol] 13.9 g/dL Normal 13.0-17.0 [facility] Comment on above: Performed By: #### C BC, BMP #### [address] Lymphocytes (Bld) [#/Vol] 2.0 10*3/uL Normal 1.00-4.8 [facility] Comment on above: Performed By: #### C BC, BMP #### [address] Lymphocytes/100 WBC (Bld) 21.6 % Normal . [facility] Comment on above: Performed By: #### C BC, BMP #### [address] MCH (RBC) [Entitic mass] 27.9 pg Normal 27.5-35.2 [facility] Comment on above: Performed By: #### C BC, BMP #### [address] MCV (RBC) [Entitic vol] 84.7 fL Normal 83.5-101 [facility] Comment on above: Performed By: #### C BC, BMP #### [address] Mean Corpuscular HGB Conc 32.9 g/dL Normal 32.5-35.6 [facility] Comment on above: Performed By: #### C BC, BMP #### [address] Monocytes (Bld) [#/Vol] 0.7 10*3/uL Normal 0.0-0.8 [facility] Comment on above: Performed By: #### C BC, BMP #### [place] [address] [place] Monocytes/100 WBC (Bld) 7.8 % Normal . [facility] Comment on above: Performed By: #### C BC, BMP #### [address] Neutrophils (Bld) [#/Vol] 6.2 10*3/uL Normal 1.8-7.7 [facility] Comment on above: Performed By: #### C BC, BMP #### [address] Neutrophils/100 WBC (Bld) 67.7 % Normal . [facility] Comment on above: Performed By: #### C JAZLYN, BMP #### [address] NRBC% 0.1 /100{WBC} Normal 0-0.5 [facility] Comment on above: Performed By: #### C JAZLYN, BMP #### [address] Platelet mean volume (Bld) [Entitic vol] 8.6 fL Normal 6.6-10.1 [facility] Comment on above: Performed By: #### C JAZLYN, BMP #### [address] Platelets (Bld) [#/Vol] 309 10*3/uL Normal 150-450 [facility] Comment on above: Performed By: #### C JAZLYN, BMP #### [address] RBC (Bld) [#/Vol] 4.99 10*6/uL Normal 3.90-5.60 [facility] Comment on above: Performed By: #### C JAZLYN, BMP #### [address] WBC (Bld) [#/Vol] 9.2 10*3/uL Normal 4.1-10.5 [facility] Comment on above: Performed By: #### C JAZLYN, BMP #### [address] Creatinine [Mass/volume] in Serum or PlasmaOrdered By: Tracy Fernandez on 09-30-2023 Creatinine [Mass/Vol] 1.15 mg/dL 0.70-1.30 [facility] Eosinophils Auto (Bld) [#/Vo l]Ordered By: Tracy Fernandez on 09-30-2023 Eosinophils (Bld) [#/Vol] 0.2 10*3/uL 0.0-0.45 [facility] Eosinophils/100 WBC Auto (Bl d)Ordered By: Tracy Fernandez on 09-30-2023 Eosinophils/100 WBC (Bld) 2.1 % . [facility] Erythrocyte distribution wid th Auto (RBC) [Ratio]Ordered By: Tracy Fernandez on 09-30-2023 Erythrocyte distribution width (RBC) [Ratio] 13.9 % 12.0-14.8 [facility] Glucose Poct Glucometerson 0 09-30-2023 Commemt1 Glu2: Cleaned Meter Normal [facility] Comment on above: Result Comment: PERF ORMED BY: [address] [place] [address] PATHOLOGIST SHIRRING TENDER DENIS PARADA M.D. Performed By: #### G LULS #### Point of Care testing , Glucose [Mass/Vol] 94 mg/dL Normal [facility] Comment on above: Result Comment: [place] Glucose Reference Range is dependent on time and content of last meal. Glucose of more than 200 mg/dL in a nonstressed, ambulatory subject supports the diagnosis of Diabetes Mellitus. Performed By: #### G LULS #### Point of Care testing , Glucose [Mass/Vol] 98 mg/dL Normal [facility] Comment on above: Result Comment: [place] Glucose Reference Range is dependent on time and content of last meal. Glucose of more than 200 mg/dL in a nonstressed, ambulatory subject supports the diagnosis of Diabetes Mellitus. PERFORMED BY: [address] [place] [address] PATHOLOGIST SHIRRING TENDER DENIS PARADA M.D. Performed By: #### G LULS #### Point of Care testing , Glucose [Mass/Vol] 112 mg/dL Normal [facility] Comment on above: Result Comment: [place] Glucose Reference Range is dependent on time and content of last meal. Glucose of more than 200 mg/dL in a nonstressed, ambulatory subject supports the diagnosis of Diabetes Mellitus. PERFORMED BY: [address] [place] [address] PATHOLOGIST SHIRRING TENDER DENIS PARADA M.D. Performed By: #### G LULS #### Point of Care testing , Glucose [Mass/volume] in Ser um or PlasmaOrdered By: Tracy Fernandez on 09-30-2023 Glucose [Mass/Vol] 105 mg/dL 70-100 [facility] Comment on above: ADA recommended refe rence rangeRandom Glucose Reference Range is dependent on time and content of last meal. Glucose of more than 200 mg/dL in a nonstressed, ambulatory subject supports the diagnosis of Diabetes Mellitus. Hematocrit Auto (Bld) [Volum e fraction]Ordered By: Tracy Fernandez on 09-30-2023 Hematocrit (Bld) [Volume fraction] 42.2 % 38.8-50.0 [facility] Hemoglobin [Mass/volume] in BloodOrdered By: Tracy Fernandez on 09-30-2023 Hemoglobin (Bld) [Mass/Vol] 13.9 g/dL 13.0-17.0 [facility] Leukocytes [#/volume] correc alysia for nucleated erythrocytes in Blood by Automated counOrdered By: Tracy Fernandez on 09-30-2023 WBC corrected for nucl RBC Auto (Bld) [#/Vol] 9.2 10*3/uL 4.1-10.5 [facility] Lymphocytes Auto (Bld) [#/Vo l]Ordered By: Tracy Fernandez on 09-30-2023 Lymphocytes (Bld) [#/Vol] 2.0 10*3/uL 1.00-4.8 [facility] Lymphocytes/100 WBC Auto (Bl d)Ordered By: Tracy Fernandez on 09-30-2023 Lymphocytes/100 WBC (Bld) 21.6 % . [facility] MCH Auto (RBC) [Entitic mass ]Ordered By: Tracy Fernandez on 09-30-2023 MCH (RBC) [Entitic mass] 27.9 pg 27.5-35.2 [facility] MCHC Auto (RBC) [Mass/Vol]Or dered By: Tracy Fernandez on 09-30-2023 MCHC (RBC) [Mass/Vol] 32.9 g/dL 32.5-35.6 [facility] MCV Auto (RBC) [Entitic vol] Ordered By: Tracy Fernandez on 09-30-2023 MCV (RBC) [Entitic vol] 84.7 fL 83.5-101 [facility] Monocytes Auto (Bld) [#/Vol] Ordered By: Tracy Fernandez on 09-30-2023 Monocytes (Bld) [#/Vol] 0.7 10*3/uL 0.0-0.8 [facility] Monocytes/100 WBC Auto (Bld) Ordered By: Tracy Fernandez on 09-30-2023 Monocytes/100 WBC (Bld) 7.8 % . [facility] Neutrophils Auto (Bld) [#/Vo l]Ordered By: Tracy Fernandez on 09-30-2023 Neutrophils (Bld) [#/Vol] 6.2 10*3/uL 1.8-7.7 [facility] Neutrophils/100 WBC Auto (Bl d)Ordered By: Tracy Fernandez on 09-30-2023 Neutrophils/100 WBC (Bld) 67.7 % . [facility] No Panel InformationOrdered By: Tracy Fernandez on 09-30-2023 Estimated GFR (CKD-EPI) > 60.0 mL/Min [facility] Creatinine Clearance (Chem 58.20 [facility] Nucleated erythrocytes [Pres ence] in Blood by Automated countOrdered By: Tracy Fernandez on 09-30-2023 Nucleated RBC Auto Ql (Bld) 0.1 /100{WBC} 0-0.5 [facility] Platelet mean volume Auto (B ld) [Entitic vol]Ordered By: Tracy Fernandez on 09-30-2023 Platelet mean volume (Bld) [Entitic vol] 8.6 fL 6.6-10.1 [facility] Platelets Auto (Bld) [#/Vol] Ordered By: Tracy Fernandez on 09-30-2023 Platelets (Bld) [#/Vol] 309 10*3/uL 150-450 [facility] Potassium [Moles/volume] in Serum or PlasmaOrdered By: Tracy Fernandez on 09-30-2023 Potassium [Moles/Vol] 4.3 mmol/L 3.5-5.1 [facility] RBC Auto (Bld) [#/Vol]Ordere d By: Tracy Fernandez on 09-30-2023 RBC (Bld) [#/Vol] 4.99 10*6/uL 3.90-5.60 [facility] Serum or plasma anion gap de terminationOrdered By: Tracy Fernandez on 09-30-2023 Anion gap [Moles/Vol] 10.5 mmol/L 6.0-15.0 [facility] Sodium [Moles/volume] in Ser um or PlasmaOrdered By: Tracy Fernandez on 09-30-2023 Sodium [Moles/Vol] 135 mmol/L 136-145 [facility] Urea nitrogen [Mass/volume] in Serum or PlasmaOrdered By: Tracy Fernandez on 09-30-2023 Urea nitrogen [Mass/Vol] 25 mg/dL 7-25 [facility] WBC Auto (Bld) [#/Vol]Ordere d By: Tracy Fernandez on 09-30-2023 WBC (Bld) [#/Vol] 9.2 10*3/uL 4.1-10.5 [facility] Glucose Poct Glucometerson 0 09-29-2023 Commemt1 Glu2: Cleaned Meter Normal [facility] Comment on above: Result Comment: PERF ORMED BY: [facility] [address] [place] [address] PATHOLOGIST SHIRRING TENDER DENIS PARADA M.D. Performed By: #### G LULS #### Point of Care testing , Glucose [Mass/Vol] 112 mg/dL Normal [facility] Comment on above: Result Comment: [place] Glucose Reference Range is dependent on time and content of last meal. Glucose of more than 200 mg/dL in a nonstressed, ambulatory subject supports the diagnosis of Diabetes Mellitus. Performed By: #### G LULS #### Point of Care testing , Glucose [Mass/Vol] 99 mg/dL Normal [facility] Comment on above: Result Comment: [place] Glucose Reference Range is dependent on time and content of last meal. Glucose of more than 200 mg/dL in a nonstressed, ambulatory subject supports the diagnosis of Diabetes Mellitus. PERFORMED BY: [facility] [address] [place] [id number] PATHOLOGIST SHIRRING TENDER DENIS PARADA M.D. Performed By: #### G LULS #### Point of Care testing , Glucose Poct Glucometerson 0 09-28-2023 Glucose [Mass/Vol] 96 mg/dL Normal [facility] Comment on above: Result Comment: [place] om Glucose Reference Range is dependent on time and content of last meal. Glucose of more than 200 mg/dL in a nonstressed, ambulatory subject supports the diagnosis of Diabetes Mellitus. PERFORMED BY: [place] [address] PATHOLOGIST SHIRRING TENDER DENIS PARADA M.D. Performed By: #### G LULS #### Point of Care testing , Glucose [Mass/Vol] 116 mg/dL Normal [facility] Comment on above: Result Comment: [place] om Glucose Reference Range is dependent on time and content of last meal. Glucose of more than 200 mg/dL in a nonstressed, ambulatory subject supports the diagnosis of Diabetes Mellitus. PERFORMED BY: [place] [address] PATHOLOGIST SHIRRING TENDER DENIS PARADA M.D. Performed By: #### C , [facility] #### [address] head/brain wo conon 09-27 CT head/brain wo con [facility] Main [place] [address] CT Scan Report Signed with Addenda Patient: Janice Shultz MR#: [id number] 7 : 1945 Acct:[id number] Age/Sex: 78 / M ADM Date: 09/25/23 Loc: Room: [address] [place] [address] Type: ADM IN Attending Dr: Donovan La [...] to assess for progression. Impression dictated by: Michael Rubio Jr..O.09/27/2023 2:20 PM Dictation Location: RADIO-PC-14 Addendum Dictated By: Hernan Dalton Jr DO Addendum Signed By: 09/27/23 1420 Addendum Cosigned By: DD/ TD/TT: 09/27/23 CT [...] Olesya 1:40 PM 09/27/2023 Impression dictated by: Michael Rubio Jr..OJana09/27/2023 1:40 PM Dictation Location: [facility]-PC-14 Transcribed By: PWS 09/27/23 1340 Dictated By: Hernan Dalton Jr, DO 09/27/23 1330 Signed By: 09/27/23 1340 Normal [facility] Glucose Poct Glucometerson 0 09-27-2023 Glucose [Mass/Vol] 104 mg/dL Normal [facility] Comment on above: Result Comment: [facility] Glucose Reference Range is dependent on time and content of last meal. Glucose of more than 200 mg/dL in a nonstressed, ambulatory subject supports the diagnosis of Diabetes Mellitus. PERFORMED BY: [place] [address] PATHOLOGIST SHIRRING TENDER DENIS PARADA M.D. Performed By: #### G LULS #### Point of Care testing , Glucose [Mass/Vol] 114 mg/dL Normal [facility] Comment on above: Result Comment: [facility] Glucose Reference Range is dependent on time and content of last meal. Glucose of more than 200 mg/dL in a nonstressed, ambulatory subject supports the diagnosis of Diabetes Mellitus. PERFORMED BY: [place] [address] PATHOLOGIST SHIRRING TENDER DENIS PARADA M.D. Performed By: #### C BC, BMP #### [address] Alanine aminotransferase [En zymatic activity/volume] in Serum or PlasmaOrdered By: Donovan La on 09-26-2023 ALT [Catalytic activity/Vol] 48 U/L 7-52 [facility] Albumin [Mass/volume] in Ser um or Plasma by Bromocresol green (BCG) dye binding methoOrdered By: Donovan La on 09-26-2023 Albumin BCG dye [Mass/Vol] 3.7 g/dL 3.5-5.7 [facility] Alkaline phosphatase [Enzyma tic activity/volume] in Serum or PlasmaOrdered By: Donovan La on 09-26-2023 ALP [Catalytic activity/Vol] 47 U/L 34-104 [facility] Aspartate aminotransferase [ Enzymatic activity/volume] in Serum or PlasmaOrdered By: Donovan La on 09-26-2023 AST [Catalytic activity/Vol] 22 U/L 13-39 [facility] Bilirubin.total [Mass/volume ] in Serum or PlasmaOrdered By: Donovan La on 09-26-2023 Bilirubin [Mass/Vol] 0.7 mg/dL 0.3-1.0 [facility] Complete Blood Count Auto Di ffon 09-26-2023 Basophils (Bld) [#/Vol] 0.1 10*3/uL Normal 0.0-0.2 [facility] Comment on above: Result Comment: PERF ORMED BY: [place] [address] PATHOLOGIST SHIRRING TENDER DENIS PARADA M.D. Performed By: #### C MP, CBC, PAB #### [address] Basophils/100 WBC (Bld) 1.1 % Normal . [facility] Comment on above: Performed By: #### C MP, CBC, PAB #### [place] [address] [place] Eosinophils (Bld) [#/Vol] 0.2 10*3/uL Normal 0.0-0.45 [facility] Comment on above: Performed By: #### C MP, CBC, PAB #### [place] [address] [place] Eosinophils/100 WBC (Bld) 2.1 % Normal . [facility] Comment on above: Performed By: #### C MP, CBC, PAB #### [place] [address] [place] Erythrocyte distribution width (RBC) [Ratio] 13.5 % Normal 12.0-14.8 [facility] Comment on above: Performed By: #### C MP, CBC, PAB #### [address] Hematocrit (Bld) [Volume fraction] 40.4 % Normal 38.8-50.0 [facility] Comment on above: Performed By: #### C MP, CBC, PAB #### [address] Hemoglobin (Bld) [Mass/Vol] 13.7 g/dL Normal 13.0-17.0 [facility] Comment on above: Performed By: #### C MP, CBC, PAB #### [facility] [address] Lymphocytes (Bld) [#/Vol] 1.8 10*3/uL Normal 1.00-4.8 [facility] Comment on above: Performed By: #### C MP, CBC, PAB #### [address] Lymphocytes/100 WBC (Bld) 19.4 % Normal . [facility] Comment on above: Performed By: #### C MP, CBC, PAB #### [address] MCH (RBC) [Entitic mass] 28.5 pg Normal 27.5-35.2 [facility] Comment on above: Performed By: #### C MP, CBC, PAB #### [address] MCV (RBC) [Entitic vol] 84.0 fL Normal 83.5-101 [facility] Comment on above: Performed By: #### C MP, CBC, PAB #### [address] Mean Corpuscular HGB Conc 33.9 g/dL Normal 32.5-35.6 [facility] Comment on above: Performed By: #### C MP, CBC, PAB #### [address] Monocytes (Bld) [#/Vol] 0.9 10*3/uL High 0.0-0.8 [facility] Comment on above: Performed By: #### C MP, CBC, PAB #### [address] Monocytes/100 WBC (Bld) 9.4 % Normal . [facility] Comment on above: Performed By: #### C MP, CBC, PAB #### [address] Neutrophils (Bld) [#/Vol] 6.2 10*3/uL Normal 1.8-7.7 [facility] Comment on above: Performed By: #### C MP, CBC, PAB #### [address] Neutrophils/100 WBC (Bld) 68.0 % Normal . [facility] Comment on above: Performed By: #### C MP, CBC, PAB #### [address] NRBC% 0.0 /100{WBC} Normal 0-0.5 [facility] Comment on above: Performed By: #### C MP, CBC, PAB #### [address] Platelet mean volume (Bld) [Entitic vol] 8.4 fL Normal 6.6-10.1 [facility] Comment on above: Performed By: #### C MP, CBC, PAB #### [address] Platelets (Bld) [#/Vol] 244 10*3/uL Normal 150-450 [facility] Comment on above: Performed By: #### C MP, CBC, PAB #### [address] RBC (Bld) [#/Vol] 4.81 10*6/uL Normal 3.90-5.60 [facility] Comment on above: Performed By: #### C MP, CBC, PAB #### [address] WBC (Bld) [#/Vol] 9.1 10*3/uL Normal 4.1-10.5 [facility] Comment on above: Performed By: #### C MP, CBC, PAB #### [address] Comprehensive Metabolic Pane tejas 09-26-2023 Albumin [Mass/Vol] 3.7 g/dL Normal 3.5-5.7 [facility] Comment on above: Performed By: #### C MP, CBC, PAB #### [address] Albumin/Globulin [Mass ratio] 1.2 {ratio} Normal [facility] Comment on above: Performed By: #### C MP, CBC, PAB #### [address] ALP [Catalytic activity/Vol] 47 U/L Normal 34-104 [facility] Comment on above: Performed By: #### C MP, CBC, PAB #### [address] ALT [Catalytic activity/Vol] 48 U/L Normal 7-52 [facility] Comment on above: Performed By: #### C MP, CBC, PAB #### [address] Anion gap [Moles/Vol] 12.8 mmol/L Normal 6.0-15.0 [facility] Comment on above: Performed By: #### C MP, CBC, PAB #### [address] AST [Catalytic activity/Vol] 22 U/L Normal 13-39 [facility] Comment on above: Performed By: #### C MP, CBC, PAB #### [address] Bilirubin [Mass/Vol] 0.7 mg/dL Normal 0.3-1.0 [facility] Comment on above: Performed By: #### C MP, CBC, PAB #### [address] Calcium [Mass/Vol] 8.8 mg/dL Normal 8.6-10.3 [facility] Comment on above: Performed By: #### C MP, CBC, PAB #### [place] [address] [place] Chloride [Moles/Vol] 104 mmol/L Normal 98-107 [facility] Comment on above: Performed By: #### C MP, CBC, PAB #### [address] CO2 [Moles/Vol] 23.1 mmol/L Normal 21.0-31.0 [facility] Comment on above: Performed By: #### C MP, CBC, PAB #### [address] Creatinine [Mass/Vol] 0.93 mg/dL Normal 0.70-1.30 [facility] Comment on above: Performed By: #### C MP, CBC, PAB #### [place] [address] [place] Creatinine Clr Calc Pharmacy 71.97 Normal [facility] Comment on above: Performed By: #### C MP, CBC, PAB #### [place] [address] [place] GFR/1.73 sq M.predicted MDRD (S/P/Bld) [Vol rate/Area] mL/min/{1.73_m2} Normal [facility] Comment on above: Performed By: #### C MP, CBC, PAB #### [address] Globulin (S) [Mass/Vol] 3.2 g/dL Normal [facility] Comment on above: Performed By: #### C MP, CBC, PAB #### [address] Glucose [Mass/Vol] 132 mg/dL High 70-100 [facility] Comment on above: Result Comment: [facility] Glucose Reference Range is dependent on time and content of last meal. Glucose of more than 200 mg/dL in a nonstressed, ambulatory subject supports the diagnosis of Diabetes Mellitus. ADA recommended reference range Performed By: #### C MP, CBC, PAB #### [address] Potassium [Moles/Vol] 3.9 mmol/L Normal 3.5-5.1 [facility] Comment on above: Performed By: #### C MP, CBC, PAB #### [address] Protein [Mass/Vol] 6.9 g/dL Normal 6.4-8.9 [facility] Comment on above: Performed By: #### C MP, CBC, PAB #### [facility] [address] Sodium [Moles/Vol] 136 mmol/L Normal 136-145 [facility] Comment on above: Performed By: #### C MP, CBC, PAB #### [facility] [address] Urea nitrogen [Mass/Vol] 23 mg/dL Normal 7-25 [facility] Comment on above: Performed By: #### C MP, CBC, PAB #### [facility] [address] Globulin Calc (S) [Mass/Vol] Ordered By: Donovan La on 09-26-2023 Globulin (S) [Mass/Vol] 3.2 g/dL [facility] Glucose Poct Glucometerson 0 09-26-2023 Glucose [Mass/Vol] 175 mg/dL Normal [facility] Comment on above: Result Comment: [facility] Glucose Reference Range is dependent on time and content of last meal. Glucose of more than 200 mg/dL in a nonstressed, ambulatory subject supports the diagnosis of Diabetes Mellitus. PERFORMED BY: [place] [address] PATHOLOGIST SHIRRING TENDER DENIS PARADA M.D. Performed By: #### C BC, BMP #### [address] Glucose [Mass/Vol] 125 mg/dL Normal [facility] Comment on above: Result Comment: [facility] Glucose Reference Range is dependent on time and content of last meal. Glucose of more than 200 mg/dL in a nonstressed, ambulatory subject supports the diagnosis of Diabetes Mellitus. PERFORMED BY: [place] [address] PATHOLOGIST SHIRRING TENDER DENIS PARADA M.D. Performed By: #### C BC, BMP #### [place] [address] [place] Prealbuminon 09-26-2023 Prealbumin [Mass/Vol] 22.8 mg/dL Normal 17.0-34.0 [facility] Comment on above: Result Comment: PERF ORMED BY: [facility] [address] [place] [id number] PATHOLOGIST SHIRRING TENDER DENIS PAARDA M.D. Performed By: #### C MP, CBC, PAB #### [facility] [address] [place] [id number] [facility] Prealbumin [Mass/volume] in Serum or PlasmaOrdered By: Donovan La on 09-26-2023 Prealbumin [Mass/Vol] 22.8 mg/dL 17.0-34.0 [facility] Protein [Mass/volume] in Ser um or PlasmaOrdered By: Donovan La on 09-26-2023 Protein [Mass/Vol] 6.9 g/dL 6.4-8.9 [facility] Serum or plasma albumin/glob ulin mass ratioOrdered By: Donovan La on 09-26-2023 Albumin/Globulin [Mass ratio] 1.2 {ratio} [facility] CBC AND AUTO DIFFon 09-25-19 24 ABSOLUTE BASOPHIL 0.1 X10E9/L Normal 0.0-0.2 [facility] Comment on above: Performed By: #### 2 4331-1, CBCA, CMP #### [facility] ([id number]) [address], [address] [place] [address] ABSOLUTE NEUTROPHIL 7.0 X10E9/L High 1.5-6.6 [facility] Comment on above: Performed By: #### 2 4331-1, CBCA, CMP #### [facility] ([id number]) [address], [address] [place] [address] Basophils/100 WBC (Bld) 0.6 % Normal [facility] Comment on above: Performed By: #### 2 4331-1, CBCA, CMP #### [facility] ([id number]) [address], [address] [place] [address] Eosinophils (Bld) [#/Vol] 0.2 10*3/uL Normal 0.0-0.4 [facility] Comment on above: Performed By: #### 2 4331-1, CBCA, CMP #### [facility] ([id number]) [address] [place] [address] Eosinophils/100 WBC (Bld) 2.2 % Normal [facility] Comment on above: Performed By: #### 2 4331-1, CBCA, CMP #### [facility] ([id number]) [address] [place] [address] Erythrocyte distribution width (RBC) [Ratio] 13.6 % Normal 11.5-15.0 [facility] Comment on above: Performed By: #### 2 4331-1, CBCA, CMP #### [facility] ([id number]) [address] [place] [address] Hematocrit (Bld) [Volume fraction] 44.0 % Normal 39-49 [facility] Comment on above: Performed By: #### 2 4331-1, CBCA, CMP #### [facility] ([id number]) [address] [place] [address] Hemoglobin (Bld) [Mass/Vol] 14.7 g/dL Normal 13.0-17.0 [facility] Comment on above: Performed By: #### 2 4331-1, CBCA, CMP #### [facility] ([id number]) [address] [place] [address] Lymphocytes (Bld) [#/Vol] 1.5 10*3/uL Normal 1.0-3.5 [facility] Comment on above: Performed By: #### 2 4331-1, CBCA, CMP #### [facility] ([id number]) [address] [place] [address] Lymphocytes/100 WBC (Bld) 15.5 % Normal [facility] Comment on above: Performed By: #### 2 4331-1, CBCA, CMP #### [facility] ([id number]) [address], [address] [place] [address] MCH (RBC) [Entitic mass] 28.4 pg Normal 27-34 [facility] Comment on above: Performed By: #### 2 4331-1, CBCA, CMP #### [facility] ([id number]) [address], [address] [place] [address] MCHC (RBC) [Mass/Vol] 33.4 g/dL Normal 32-36 [facility] Comment on above: Performed By: #### 2 4331-1, CBCA, CMP #### [facility] ([id number]) [address], [address] [place] [address] MCV (RBC) [Entitic vol] 85 fL Normal 80-100 [facility] Comment on above: Performed By: #### 2 4331-1, CBCA, CMP #### [facility] ([id number]) [address], [address] [place] [address] Monocytes (Bld) [#/Vol] 0.7 10*3/uL Normal 0-0.9 [facility] Comment on above: Performed By: #### 2 4331-1, CBCA, CMP #### [facility] ([id number]) [address], [address] [place] [address] Monocytes/100 WBC (Bld) 7.4 % Normal [facility] Comment on above: Performed By: #### 2 4331-1, CBCA, CMP #### [facility] ([id number]) [address], [address] [place] [address] Neutrophils/100 WBC (Bld) 74.3 % Normal [facility] Comment on above: Performed By: #### 2 4331-1, CBCA, CMP #### [facility] ([id number]) [address], [address] [place] [address] Platelet mean volume (Bld) [Entitic vol] 8.7 fL Normal 7-12 [facility] Comment on above: Performed By: #### 2 4331-1, CBCA, CMP #### [facility] ([id number]) [address], [address] [address] Platelets (Bld) [#/Vol] 234 10*3/uL Normal 150-450 [facility] Comment on above: Performed By: #### 2 4331-1, CBCA, CMP #### [facility] ([id number]) [address], [address] [place] [address] RBC COUNT 5.19 X10E12/L Normal 4.10-5.70 [facility] Comment on above: Performed By: #### 2 4331-1, CBCA, CMP #### [facility] ([id number]) [address], [address] [address] WBC (Bld) [#/Vol] 9.4 10*3/uL Normal 4.0-11.0 [facility] Comment on above: Performed By: #### 2 4331-1, CBCA, CMP #### [facility] ([id number]) [address], [address] [place] [address] COMPREHENSIVE METABOLIC PANE [place] 09-25-2023 Albumin [Mass/Vol] 3.8 g/dL Normal 3.2-5.3 [facility] Comment on above: Performed By: #### 2 4331-1, CBCA, CMP #### [facility] ([id number]) [address], [address] [place] [address] ALP [Catalytic activity/Vol] 48 U/L Normal 39-130 [facility] Comment on above: Performed By: #### 2 4331-1, CBCA, CMP #### [facility] ([id number]) [address], [address] [place] [address] ALT [Catalytic activity/Vol] 65 U/L High 0-40 [facility] Comment on above: Performed By: #### 2 4331-1, CBCA, CMP #### [facility] ([id number]) [address], [address] [place] [address] Anion gap [Moles/Vol] 10 mmol/L Normal 5-15 [facility] Comment on above: Performed By: #### 2 4331-1, CBCA, CMP #### [facility] ([id number]) [address], [address] [place] [address] AST [Catalytic activity/Vol] 48 U/L High 0-41 [facility] Comment on above: Performed By: #### 2 4331-1, CBCA, CMP #### [facility] ([id number]) [address], [address] [place] [address] Bilirubin [Mass/Vol] 0.8 mg/dL Normal 0.3-1.2 [facility] Comment on above: Performed By: #### 2 4331-1, CBCA, CMP #### [facility] ([id number]) [address], [address] [place] [address] Calcium [Mass/Vol] 8.9 mg/dL Normal 8.5-10.5 [facility] Comment on above: Performed By: #### 2 4331-1, CBCA, CMP #### [facility] ([id number]) [address], [address] [place] [address] Chloride [Moles/Vol] 101 mmol/L Normal 98-109 [facility] Comment on above: Performed By: #### 2 4331-1, CBCA, CMP #### [facility] ([id number]) [address] [address] [place] [address] CO2 [Moles/Vol] 24 mmol/L Normal 22-32 [facility] Comment on above: Performed By: #### 2 4331-1, CBCA, CMP #### [facility] ([id number]) [address] [address] [place] [address] Creatinine [Mass/Vol] 0.85 mg/dL Normal 0.60-1.30 [facility] Comment on above: Result Comment: METH OD TRACEABLE TO IDMS STANDARD Performed By: #### 2 4331-1, CBCA, CMP #### [facility] ([id number]) [address] [place] [address] eGFR (CKD-EPI) NON-RACE DEPENDENT >90 Normal >59 [facility] Comment on above: Result Comment: Reported eGFR is based on the CKD-EPI 2020 equation that does not use a race coefficient. Performed By: #### 2 4331-1, CBCA, CMP #### [facility] ([id number]) [address] [address] [place] [address] Glucose [Mass/Vol] 121 mg/dL High 65-99 [facility] Comment on above: Performed By: #### 2 4331-1, CBCA, CMP #### [facility] ([id number]) [address] [address] [place] [address] Potassium [Moles/Vol] 4.4 mmol/L Normal 3.5-5.0 [facility] Comment on above: Performed By: #### 2 4331-1, CBCA, CMP #### [facility] ([id number]) [address] [address] [place] [address] Protein [Mass/Vol] 7.3 g/dL Normal 6.0-8.0 [facility] Comment on above: Performed By: #### 2 4331-1, CBCA, CMP #### [facility] ([id number]) [address], [address] [place] [address] Sodium [Moles/Vol] 135 mmol/L Normal 134-146 [facility] Comment on above: Performed By: #### 2 4331-1, CBCA, CMP #### [facility] ([id number]) [address], [address] [place] [address] Urea nitrogen [Mass/Vol] 21 mg/dL Normal 5-27 [facility] Comment on above: Performed By: #### 2 4331-1, CBCA, CMP #### [facility] ([id number]) [address], [address] [place] [address] Glucose Glucometer (BldC) [M ass/Vol]on 09-25-2023 Glucose [Mass/Vol] 126 mg/dL High 65-99 [facility] Glucose [Mass/Vol] 112 mg/dL High 65-99 [facility] Glucose Poct Glucometerson 0 09-25-2023 Glucose [Mass/Vol] 130 mg/dL Normal [facility] Comment on above: Result Comment: [facility] Glucose Reference Range is dependent on time and content of last meal. Glucose of more than 200 mg/dL in a nonstressed, ambulatory subject supports the diagnosis of Diabetes Mellitus. PERFORMED BY: [place] [address] PATHOLOGIST SHIRRING TENDER DENIS PARADA M.D. Performed By: #### C BC, BMP #### [facility] [address] CBC AND AUTO DIFFon 09-24-19 24 ABSOLUTE BASOPHIL 0.1 X10E9/L Normal 0.0-0.2 [facility] Comment on above: Performed By: #### 2 4331-1, CBCA, CMP #### [facility] ([id number]) [address], [address] [place] [address] ABSOLUTE NEUTROPHIL 6.2 X10E9/L Normal 1.5-6.6 [facility] Comment on above: Performed By: #### 2 4331-1, CBCA, CMP #### [facility] ([id number]) [address], [address] [place] [address] Basophils/100 WBC (Bld) 0.6 % Normal [facility] Comment on above: Performed By: #### 2 4331-1, CBCA, CMP #### [facility] ([id number]) [address], [facility] [address] [place] [address] Eosinophils (Bld) [#/Vol] 0.3 10*3/uL Normal 0.0-0.4 [facility] Comment on above: Performed By: #### 2 4331-1, CBCA, CMP #### [facility] ([id number]) [address], [address] [address] Eosinophils/100 WBC (Bld) 3.3 % Normal [facility] Comment on above: Performed By: #### 2 4331-1, CBCA, CMP #### [facility] ([id number]) [address], [address] [address] Erythrocyte distribution width (RBC) [Ratio] 13.4 % Normal 11.5-15.0 [facility] Comment on above: Performed By: #### 2 4331-1, CBCA, CMP #### [facility] ([id number]) [address], [facility] [address] [place] [address] Hematocrit (Bld) [Volume fraction] 44.1 % Normal 39-49 [facility] Comment on above: Performed By: #### 2 4331-1, CBCA, CMP #### [facility] ([id number]) [address] [address] Hemoglobin (Bld) [Mass/Vol] 14.9 g/dL Normal 13.0-17.0 [facility] Comment on above: Performed By: #### 2 4331-1, CBCA, CMP #### [facility] ([id number]) [address] [place] [address] Lymphocytes (Bld) [#/Vol] 1.6 10*3/uL Normal 1.0-3.5 [facility] Comment on above: Performed By: #### 2 4331-1, CBCA, CMP #### [facility] ([id number]) [address], [facility] [address] [place] [address] Lymphocytes/100 WBC (Bld) 18.2 % Normal [facility] Comment on above: Performed By: #### 2 4331-1, CBCA, CMP #### [facility] ([id number]) [address], [facility] [address] [place] [address] MCH (RBC) [Entitic mass] 28.6 pg Normal 27-34 [facility] Comment on above: Performed By: #### 2 4331-1, CBCA, CMP #### [facility] ([id number]) [address], [facility] [address] [place] [address] MCHC (RBC) [Mass/Vol] 33.7 g/dL Normal 32-36 [facility] Comment on above: Performed By: #### 2 4331-1, CBCA, CMP #### [facility] ([id number]) [address], [facility] [address] [place] [address] MCV (RBC) [Entitic vol] 85 fL Normal 80-100 [facility] Comment on above: Performed By: #### 2 4331-1, CBCA, CMP #### [facility] ([id number]) [address], [facility] [address] [place] [address] Monocytes (Bld) [#/Vol] 0.6 10*3/uL Normal 0-0.9 [facility] Comment on above: Performed By: #### 2 4331-1, CBCA, CMP #### [facility] ([id number]) [address] [address] [place] [address] Monocytes/100 WBC (Bld) 7.1 % Normal [facility] Comment on above: Performed By: #### 2 4331-1, CBCA, CMP #### [facility] ([id number]) [address], [address] [place] [address] Neutrophils/100 WBC (Bld) 70.8 % Normal [facility] Comment on above: Performed By: #### 2 4331-1, CBCA, CMP #### [facility] ([id number]) [address], [address] [place] [address] Platelet mean volume (Bld) [Entitic vol] 8.5 fL Normal 7-12 [facility] Comment on above: Performed By: #### 2 4331-1, CBCA, CMP #### [facility] ([id number]) [address], [address] [place] [address] Platelets (Bld) [#/Vol] 219 10*3/uL Normal 150-450 [facility] Comment on above: Performed By: #### 2 4331-1, CBCA, CMP #### [facility] ([id number]) [address], [address] [place] [address] RBC COUNT 5.18 X10E12/L Normal 4.10-5.70 [facility] Comment on above: Performed By: #### 2 4331-1, CBCA, CMP #### [facility] ([id number]) [address], [facility] [address] [place] [address] WBC (Bld) [#/Vol] 8.8 10*3/uL Normal 4.0-11.0 [facility] Comment on above: Performed By: #### 2 4331-1, CBCA, CMP #### [facility] ([id number]) [address], [address] [place] [address] COMPREHENSIVE METABOLIC PANE [place] 09-24-2023 Albumin [Mass/Vol] 3.6 g/dL Normal 3.2-5.3 [facility] Comment on above: Performed By: #### 2 4331-1, CBCA, CMP #### [facility] ([id number]) [address], [address] [place] [address] ALP [Catalytic activity/Vol] 48 U/L Normal 39-130 [facility] Comment on above: Performed By: #### 2 4331-1, CBCA, CMP #### [facility] ([id number]) [address], [address] [place] [address] ALT [Catalytic activity/Vol] 47 U/L High 0-40 [facility] Comment on above: Performed By: #### 2 4331-1, CBCA, CMP #### [facility] ([id number]) [address], [address] [place] [address] Anion gap [Moles/Vol] 8 mmol/L Normal 5-15 [facility] Comment on above: Performed By: #### 2 4331-1, CBCA, CMP #### [facility] ([id number]) [address], [address] [place] [address] AST [Catalytic activity/Vol] 27 U/L Normal 0-41 [facility] Comment on above: Performed By: #### 2 4331-1, CBCA, CMP #### [facility] ([id number]) [address], [address] [place] [address] Bilirubin [Mass/Vol] 1.0 mg/dL Normal 0.3-1.2 [facility] Comment on above: Performed By: #### 2 4331-1, CBCA, CMP #### [facility] ([id number]) [address], [address] [place] [address] Calcium [Mass/Vol] 8.7 mg/dL Normal 8.5-10.5 [facility] Comment on above: Performed By: #### 2 4331-1, CBCA, CMP #### [facility] ([id number]) [address], [facility] [address] [place] [address] Chloride [Moles/Vol] 99 mmol/L Normal 98-109 [facility] Comment on above: Performed By: #### 2 4331-1, CBCA, CMP #### [facility] ([id number]) [address], [facility] [address] [place] [address] CO2 [Moles/Vol] 27 mmol/L Normal 22-32 [facility] Comment on above: Performed By: #### 2 4331-1, CBCA, CMP #### [facility] ([id number]) [address], [facility] [address] [place] [address] Creatinine [Mass/Vol] 0.84 mg/dL Normal 0.60-1.30 [facility] Comment on above: Result Comment: METH OD TRACEABLE TO IDMS STANDARD Performed By: #### 2 4331-1, CBCA, CMP #### [facility] ([id number]) [address] [place] [address] eGFR (CKD-EPI) NON-RACE DEPENDENT >90 Normal >59 [facility] Comment on above: Result Comment: Reported eGFR is based on the CKD-EPI 2020 equation that does not use a race coefficient. Performed By: #### 2 4331-1, CBCA, CMP #### [facility] ([id number]) [address] [place] [address] Glucose [Mass/Vol] 124 mg/dL High 65-99 [facility] Comment on above: Performed By: #### 2 4331-1, CBCA, CMP #### [facility] ([id number]) [address] [place] [address] Potassium [Moles/Vol] 4.3 mmol/L Normal 3.5-5.0 [facility] Comment on above: Performed By: #### 2 4331-1, CBCA, CMP #### [facility] ([id number]) [address], [address] [place] [address] Protein [Mass/Vol] 6.8 g/dL Normal 6.0-8.0 [facility] Comment on above: Performed By: #### 2 4331-1, CBCA, CMP #### [facility] ([id number]) [address], [address] [place] [address] Sodium [Moles/Vol] 134 mmol/L Normal 134-146 [facility] Comment on above: Performed By: #### 2 4331-1, CBCA, CMP #### [facility] ([id number]) [address], [address] [place] [address] Urea nitrogen [Mass/Vol] 21 mg/dL Normal 5-27 [facility] Comment on above: Performed By: #### 2 4331-1, CBCA, CMP #### [facility] ([id number]) [address], [address] [place] [address] Glucose Glucometer (BldC) [M ass/Vol]on 09-24-2023 Glucose [Mass/Vol] 116 mg/dL High 65-99 [facility] Glucose [Mass/Vol] 137 mg/dL High 65-99 [facility] Glucose [Mass/Vol] 81 mg/dL Normal 65-99 [facility] Glucose [Mass/Vol] 144 mg/dL High 65-99 [facility] MAGNESIUMon 09-24-2023 Magnesium [Mass/Vol] 2.1 mg/dL Normal 1.8-2.6 [facility] Comment on above: Performed By: #### 2 4331-1, CBCA, CMP #### [facility] ([id number]) [address], [address] [place] [address] Magnesium [Mass/Vol] 1.9 mg/dL Normal 1.8-2.6 [facility] Comment on above: Performed By: #### 2 4331-1, CBCA, CMP #### [facility] ([id number]) [address], [address] [place] [address] CBC AND AUTO DIFFon 09-23-19 24 ABSOLUTE BASOPHIL 0.0 X10E9/L Normal 0.0-0.2 [facility] Comment on above: Performed By: #### 1 9123-9, CMP, CBCA ####[facility] ([id number])[address], [address] [place] [address] ABSOLUTE NEUTROPHIL 6.0 X10E9/L Normal 1.5-6.6 [facility] Comment on above: Performed By: #### 1 9123-9, CMP, CBCA ####[facility] ([id number])[address] [address] [place] [address] Basophils/100 WBC (Bld) 0.5 % Normal [facility] Comment on above: Performed By: #### 1 9123-9, CMP, CBCA ####[facility] ([id number])[address] [address] [place] [address] Eosinophils (Bld) [#/Vol] 0.3 10*3/uL Normal 0.0-0.4 [facility] Comment on above: Performed By: #### 1 9123-9, CMP, CBCA ####[facility] ([id number])[address] [address] [place] [address] Eosinophils/100 WBC (Bld) 2.9 % Normal [facility] Comment on above: Performed By: #### 1 9123-9, CMP, CBCA ####[facility] ([id number])[address] [address] Erythrocyte distribution width (RBC) [Ratio] 13.8 % Normal 11.5-15.0 [facility] Comment on above: Performed By: #### 1 9123-9, CMP, CBCA ####[facility] ([id number])[address] [address] Hematocrit (Bld) [Volume fraction] 43.9 % Normal 39-49 [facility] Comment on above: Performed By: #### 1 91-9, CMP, CBCA ####[facility] ([id number])[address] [address] Hemoglobin (Bld) [Mass/Vol] 14.8 g/dL Normal 13.0-17.0 [facility] Comment on above: Performed By: #### 1 9123-9, CMP, CBCA ####[facility] ([id number])[address] [address] Lymphocytes (Bld) [#/Vol] 1.7 10*3/uL Normal 1.0-3.5 [facility] Comment on above: Performed By: #### 1 9123-9, CMP, CBCA ####[facility] ([id number])[address] [address] Lymphocytes/100 WBC (Bld) 19.4 % Normal [facility] Comment on above: Performed By: #### 1 9123-9, CMP, CBCA ####[facility] ([id number])[address] [address] MCH (RBC) [Entitic mass] 28.7 pg Normal 27-34 [facility] Comment on above: Performed By: #### 1 9123-9, CMP, CBCA ####[facility] ([id number])[address] [place] [address] MCHC (RBC) [Mass/Vol] 33.8 g/dL Normal 32-36 [facility] Comment on above: Performed By: #### 1 9123-9, CMP, CBCA ####[facility] ([id number])[address], [address], [place] [address] MCV (RBC) [Entitic vol] 85 fL Normal 80-100 [facility] Comment on above: Performed By: #### 1 9123-9, CMP, CBCA ####[facility] ([id number])[address], [address] [place] [address] Monocytes (Bld) [#/Vol] 0.8 10*3/uL Normal 0-0.9 [facility] Comment on above: Performed By: #### 1 9123-9, CMP, CBCA ####[facility] ([id number])[address] [address] [place] [address] Monocytes/100 WBC (Bld) 9.1 % Normal [facility] Comment on above: Performed By: #### 1 9123-9, CMP, CBCA ####[facility] ([id number])[address] [address] [place] [address], [place] [address] Neutrophils/100 WBC (Bld) 68.1 % Normal [facility] Comment on above: Performed By: #### 1 9123-9, CMP, CBCA ####[facility] ([id number])[address] [address] [place] [address], [place] [address] Platelet mean volume (Bld) [Entitic vol] 8.7 fL Normal 7-12 [facility] Comment on above: Performed By: #### 1 9123-9, CMP, CBCA ####[facility] ([id number])[address], [address] [place] [address] Platelets (Bld) [#/Vol] 214 10*3/uL Normal 150-450 [facility] Comment on above: Performed By: #### 1 9123-9, CMP, CBCA ####[facility] ([id number])[address], [address] [place] [address] RBC COUNT 5.17 X10E12/L Normal 4.10-5.70 [facility] Comment on above: Performed By: #### 1 9123-9, CMP, CBCA ####[facility] ([id number])[address] [address] WBC (Bld) [#/Vol] 8.8 10*3/uL Normal 4.0-11.0 [facility] Comment on above: Performed By: #### 1 9123-9, CMP, CBCA ####[facility] ([id number])[address], [address] [place] [address] COMPREHENSIVE METABOLIC PANE [place] 09-23-2023 Albumin [Mass/Vol] 3.7 g/dL Normal 3.2-5.3 [facility] Comment on above: Performed By: #### 2 4331-1, CBCA, CMP #### [facility] ([id number]) [address], [address] [place] [address] ALP [Catalytic activity/Vol] 45 U/L Normal 39-130 [facility] Comment on above: Performed By: #### 2 4331-1, CBCA, CMP #### [facility] ([id number]) [address], [address] [place] [address] ALT [Catalytic activity/Vol] 54 U/L High 0-40 [facility] Comment on above: Performed By: #### 2 4331-1, CBCA, CMP #### [facility] ([id number]) [address], [address] [place] [address] Anion gap [Moles/Vol] 10 mmol/L Normal 5-15 [facility] Comment on above: Performed By: #### 2 4331-1, CBCA, CMP #### [facility] ([id number]) [address], [address] [place] [address] AST [Catalytic activity/Vol] 34 U/L Normal 0-41 [facility] Comment on above: Performed By: #### 2 4331-1, CBCA, CMP #### [facility] ([id number]) [address], [address] [place] [address] Bilirubin [Mass/Vol] 1.0 mg/dL Normal 0.3-1.2 [facility] Comment on above: Performed By: #### 2 4331-1, CBCA, CMP #### [facility] ([id number]) [address], [address] [place] [address] Calcium [Mass/Vol] 8.7 mg/dL Normal 8.5-10.5 [facility] Comment on above: Performed By: #### 2 4331-1, CBCA, CMP #### [facility] ([id number]) [address], [address] [place] [address] Chloride [Moles/Vol] 101 mmol/L Normal 98-109 [facility] Comment on above: Performed By: #### 2 4331-1, CBCA, CMP #### [facility] ([id number]) [address], [address] [place] [address] CO2 [Moles/Vol] 27 mmol/L Normal 22-32 [facility] Comment on above: Performed By: #### 2 4331-1, CBCA, CMP #### [facility] ([id number]) [address], [address] [place] [address] Creatinine [Mass/Vol] 0.86 mg/dL Normal 0.60-1.30 [facility] Comment on above: Result Comment: METH OD TRACEABLE TO IDMS STANDARD Performed By: #### 2 4331-1, CBCA, CMP #### [facility] ([id number]) [address], [address] [place] [address] GFR/1.73 sq M.predicted among non-blacks MDRD (S/P/Bld) [Vol rate/Area] 90 mL/min/{1.73_m2} Normal >59 [facility] Comment on above: Result Comment: Reported eGFR is based on the CKD-EPI 2020 equation that does not use a race coefficient. Performed By: #### 2 4331-1, CBCA, CMP #### [facility] ([id number]) [address], [address] [place] [address] Glucose [Mass/Vol] 122 mg/dL High 65-99 [facility] Comment on above: Performed By: #### 2 4331-1, CBCA, CMP #### [facility] ([id number]) [address], [address] [place] [address] Potassium [Moles/Vol] 4.1 mmol/L Normal 3.5-5.0 [facility] Comment on above: Performed By: #### 2 4331-1, CBCA, CMP #### [facility] ([id number]) [address], [address] [place] [address] Protein [Mass/Vol] 6.8 g/dL Normal 6.0-8.0 [facility] Comment on above: Performed By: #### 2 4331-1, CBCA, CMP #### [facility] ([id number]) [address], [address] [place] [address] Sodium [Moles/Vol] 138 mmol/L Normal 134-146 [facility] Comment on above: Performed By: #### 2 4331-1, CBCA, CMP #### [facility] ([id number]) [address], [address] [place] [address] Urea nitrogen [Mass/Vol] 23 mg/dL Normal 5-27 [facility] Comment on above: Performed By: #### 2 4331-1, CBCA, CMP #### [facility] ([id number]) [address], [address] [place] [address] MAGNESIUMon 09-23-2023 Magnesium [Mass/Vol] 1.8 mg/dL Normal 1.8-2.6 [facility] Comment on above: Performed By: #### 2 4331-1, CBCA, CMP #### [facility] ([id number]) [address], [address] [place] [address] CBC AND AUTO DIFFon 09-22-19 ABSOLUTE BASOPHIL 0.1 X10E9/L Normal 0.0-0.2 [facility] Comment on above: Performed By: #### 1 9123-9, CBCA, CMP ####[facility] ([id number])[address], [address] [place] [address] ABSOLUTE NEUTROPHIL 7.2 X10E9/L High 1.5-6.6 [facility] Comment on above: Performed By: #### 1 9123-9, CBCA, CMP ####[facility] ([id number])[address] [address] [place] [address] Basophils/100 WBC (Bld) 0.5 % Normal [facility] Comment on above: Performed By: #### 1 9123-9, CBCA, CMP ####[facility] ([id number])[address] [address] Eosinophils (Bld) [#/Vol] 0.2 10*3/uL Normal 0.0-0.4 [facility] Comment on above: Performed By: #### 1 9123-9, CBCA, CMP ####[facility] ([id number])[address], [address] [place] [address] Eosinophils/100 WBC (Bld) 1.8 % Normal [facility] Comment on above: Performed By: #### 1 9123-9, CBCA, CMP ####[facility] ([id number])[address], [address] [place] [address] Erythrocyte distribution width (RBC) [Ratio] 13.9 % Normal 11.5-15.0 [facility] Comment on above: Performed By: #### 1 9123-9, CBCA, CMP ####[facility] ([id number])[address] [address] [place] [address] Hematocrit (Bld) [Volume fraction] 43.8 % Normal 39-49 [facility] Comment on above: Performed By: #### 1 9123-9, CBCA, CMP ####[facility] ([id number])[address] [address] [place] [address] Hemoglobin (Bld) [Mass/Vol] 15.0 g/dL Normal 13.0-17.0 [facility] Comment on above: Performed By: #### 1 9123-9, CBCA, CMP ####[facility] ([id number])[address] [address] [place] [address] Lymphocytes (Bld) [#/Vol] 1.6 10*3/uL Normal 1.0-3.5 [facility] Comment on above: Performed By: #### 1 9123-9, CBCA, CMP ####[facility] ([id number])[address] [address], [place] [address] Lymphocytes/100 WBC (Bld) 15.7 % Normal [facility] Comment on above: Performed By: #### 1 9123-9, CBCA, CMP ####[facility] ([id number])[address] [address], [place] [address] MCH (RBC) [Entitic mass] 29.1 pg Normal 27-34 [facility] Comment on above: Performed By: #### 1 9123-9, CBCA, CMP ####[facility] ([id number])[address] [place] [address] MCHC (RBC) [Mass/Vol] 34.1 g/dL Normal 32-36 [facility] Comment on above: Performed By: #### 1 9123-9, CBCA, CMP ####[facility] ([id number])[address], [place] [address] MCV (RBC) [Entitic vol] 85 fL Normal 80-100 [facility] Comment on above: Performed By: #### 1 9123-9, CBCA, CMP ####[facility] ([id number])[address], [place] [address] Monocytes (Bld) [#/Vol] 1.0 10*3/uL High 0-0.9 [facility] Comment on above: Performed By: #### 1 9123-9, CBCA, CMP ####[facility] ([id number])[address], [place] [address] Monocytes/100 WBC (Bld) 10.1 % Normal [facility] Comment on above: Performed By: #### 1 9123-9, CBCA, CMP ####[facility] ([id number])[address], [place] [address] Neutrophils/100 WBC (Bld) 71.9 % Normal [facility] Comment on above: Performed By: #### 1 9123-9, CBCA, CMP ####[facility] ([id number])[address], [place] [address] Platelet mean volume (Bld) [Entitic vol] 8.5 fL Normal 7-12 [facility] Comment on above: Performed By: #### 1 9123-9, CBCA, CMP ####[facility] ([id number])[address], [place] [address] Platelets (Bld) [#/Vol] 239 10*3/uL Normal 150-450 [facility] Comment on above: Performed By: #### 1 9123-9, CBCA, CMP ####[facility] ([id number])[address] [place] [address] RBC COUNT 5.15 X10E12/L Normal 4.10-5.70 [facility] Comment on above: Performed By: #### 1 9123-9, CBCA, CMP ####[facility] ([id number])[address], [place] [address] WBC (Bld) [#/Vol] 10.0 10*3/uL Normal 4.0-11.0 [facility] Comment on above: Performed By: #### 1 9123-9, CBCA, CMP ####[facility] ([id number])[address], [place] [address] COMPREHENSIVE METABOLIC PANE [place] 09-22-2023 Albumin [Mass/Vol] 3.8 g/dL Normal 3.2-5.3 [facility] Comment on above: Performed By: #### 1 9123-9, CBCA, CMP ####[facility] ([id number])[address] [place] [address] ALP [Catalytic activity/Vol] 49 U/L Normal 39-130 [facility] Comment on above: Performed By: #### 1 9123-9, CBCA, CMP ####[facility] ([id number])[address] [place] [address] ALT [Catalytic activity/Vol] 60 U/L High 0-40 [facility] Comment on above: Performed By: #### 1 9123-9, CBCA, CMP ####[facility] ([id number])[address], [place] [address] Anion gap [Moles/Vol] 8 mmol/L Normal 5-15 [facility] Comment on above: Performed By: #### 1 9123-9, CBCA, CMP ####[facility] ([id number])[address], [place] [address] AST [Catalytic activity/Vol] 51 U/L High 0-41 [facility] Comment on above: Performed By: #### 1 9123-9, CBCA, CMP ####[facility] ([id number])[address], [place] [address] Bilirubin [Mass/Vol] 0.7 mg/dL Normal 0.3-1.2 [facility] Comment on above: Performed By: #### 1 9123-9, CBCA, CMP ####[facility] ([id number])[address], [place] [address] Calcium [Mass/Vol] 8.8 mg/dL Normal 8.5-10.5 [facility] Comment on above: Performed By: #### 1 9123-9, CBCA, CMP ####[facility] ([id number])[address], [place] [address] Chloride [Moles/Vol] 99 mmol/L Normal 98-109 [facility] Comment on above: Performed By: #### 1 9123-9, CBCA, CMP ####[facility] ([id number])[address], [place] [address] CO2 [Moles/Vol] 31 mmol/L Normal 22-32 [facility] Comment on above: Performed By: #### 1 9123-9, CBCA, CMP ####[facility] ([id number])[address] [address], [place] [address] Creatinine [Mass/Vol] 1.02 mg/dL Normal 0.60-1.30 [facility] Comment on above: Result Comment: METH OD TRACEABLE TO IDMS STANDARD Performed By: #### 1 9123-9, CBCA, CMP ####[facility] ([id number])[address] [place] [address] GFR/1.73 sq M.predicted among non-blacks MDRD (S/P/Bld) [Vol rate/Area] 76 mL/min/{1.73_m2} Normal >59 [facility] Comment on above: Result Comment: Reported eGFR is based on the CKD-EPI 2020 equation that does not use a race coefficient. Performed By: #### 1 9123-9, CBCA, CMP ####[facility] ([id number])[address], [place] [address] Glucose [Mass/Vol] 127 mg/dL High 65-99 [facility] Comment on above: Performed By: #### 1 9123-9, CBCA, CMP ####[facility] ([id number])[address] [address] [place] [address] Potassium [Moles/Vol] 4.3 mmol/L Normal 3.5-5.0 [facility] Comment on above: Performed By: #### 1 9123-9, CBCA, CMP ####[facility] ([id number])[address] [place] [address] Protein [Mass/Vol] 7.0 g/dL Normal 6.0-8.0 [facility] Comment on above: Performed By: #### 1 9123-9, CBCA, CMP ####[facility] ([id number])[address] [address] [place] [address] Sodium [Moles/Vol] 138 mmol/L Normal 134-146 [facility] Comment on above: Performed By: #### 1 9123-9, CBCA, CMP ####[facility] ([id number])[address], [place] [address] Urea nitrogen [Mass/Vol] 30 mg/dL High 5-27 [facility] Comment on above: Performed By: #### 1 9123-9, CBCA, CMP ####[facility] ([id number])[address], [address] [place] [address] Glucose Glucometer (BldC) [M ass/Vol]on 09-22-2023 Glucose [Mass/Vol] 119 mg/dL High 65-99 [facility] Glucose [Mass/Vol] 140 mg/dL High 65-99 [facility] MAGNESIUMon 09-22-2023 Magnesium [Mass/Vol] 2.0 mg/dL Normal 1.8-2.6 [facility] Comment on above: Performed By: #### 1 23-9, CBCA, CMP ####[facility] ([id number])[address], [address], [place] [address] CBC AND AUTO DIFFon 09-21-19 24 ABSOLUTE BASOPHIL 0.0 X10E9/L Normal 0.0-0.2 [facility] Comment on above: Performed By: #### C SHAISTA, , CBCA #### [facility] ([id number]) [address], [address] [place] [address] ABSOLUTE NEUTROPHIL 8.1 X10E9/L High 1.5-6.6 [facility] Comment on above: Performed By: #### C SHAISTA, , CBCA #### [facility] ([id number]) [address], [address] [place] [address] Basophils/100 WBC (Bld) 0.4 % Normal [facility] Comment on above: Performed By: #### Susy NOONAN, , CBCA #### [facility] ([id number]) [address], [facility] [address] [place] [address] Eosinophils (Bld) [#/Vol] 0.0 10*3/uL Normal 0.0-0.4 [facility] Comment on above: Performed By: #### C SHAISTA, , CBCA #### [facility] ([id number]) [address], [facility] [address] [place] [address] Eosinophils/100 WBC (Bld) 0.5 % Normal [facility] Comment on above: Performed By: #### C SHAISTA, , CBCA #### [facility] ([id number]) [address], [facility] [address] [place] [address] Erythrocyte distribution width (RBC) [Ratio] 13.9 % Normal 11.5-15.0 [facility] Comment on above: Performed By: #### Susy NOONAN, , CBCA #### [facility] ([id number]) [address], [facility] [address] [place] [address] Hematocrit (Bld) [Volume fraction] 43.5 % Normal 39-49 [facility] Comment on above: Performed By: #### C SHAISTA, , CBCA #### [facility] ([id number]) [address], [facility] [address] [place] [address] Hemoglobin (Bld) [Mass/Vol] 14.7 g/dL Normal 13.0-17.0 [facility] Comment on above: Performed By: #### C SHAISTA, , CBCA #### [facility] ([id number]) [address] [place] [address] Lymphocytes (Bld) [#/Vol] 1.8 10*3/uL Normal 1.0-3.5 [facility] Comment on above: Performed By: #### C SHAISTA, , CBCA #### [facility] ([id number]) [address], [address] [place] [address] Lymphocytes/100 WBC (Bld) 16.6 % Normal [facility] Comment on above: Performed By: #### C SHAISTA, , CBCA #### [facility] ([id number]) [address], [address] [place] [address] MCH (RBC) [Entitic mass] 28.6 pg Normal 27-34 [facility] Comment on above: Performed By: #### C SHAISTA, , CBCA #### [facility] ([id number]) [address], [address] [place] [address] MCHC (RBC) [Mass/Vol] 33.8 g/dL Normal 32-36 [facility] Comment on above: Performed By: #### Susy NOONAN, , CBCA #### [facility] ([id number]) [address], [address] [place] [address] MCV (RBC) [Entitic vol] 85 fL Normal 80-100 [facility] Comment on above: Performed By: #### Susy NOONAN, , CBCA #### [facility] ([id number]) [address], [address] [place] [address] Monocytes (Bld) [#/Vol] 0.9 10*3/uL Normal 0-0.9 [facility] Comment on above: Performed By: #### Susy NOONAN, , CBCA #### [facility] ([id number]) [address], [address] [place] [address] Monocytes/100 WBC (Bld) 7.9 % Normal [facility] Comment on above: Performed By: #### Susy NOONAN, , CBCA #### [facility] ([id number]) [address], [address] [place] [address] Neutrophils/100 WBC (Bld) 74.6 % Normal [facility] Comment on above: Performed By: #### C SHAISTA, , CBCA #### [facility] ([id number]) [address], [facility] [address] [place] [address] Platelet mean volume (Bld) [Entitic vol] 8.3 fL Normal 7-12 [facility] Comment on above: Performed By: #### C SHAISTA, , CBCA #### [facility] ([id number]) [address], [facility] [address] [place] [address] Platelets (Bld) [#/Vol] 235 10*3/uL Normal 150-450 [facility] Comment on above: Performed By: #### C SHAISTA, , CBCA #### [facility] ([id number]) [address], [facility] [address] [place] [address] RBC COUNT 5.15 X10E12/L Normal 4.10-5.70 [facility] Comment on above: Performed By: #### Susy NOONAN, , CBCA #### [facility] ([id number]) [address], [facility] [address] [place] [address] WBC (Bld) [#/Vol] 10.8 10*3/uL Normal 4.0-11.0 [facility] Comment on above: Performed By: #### Susy NOONAN, , CBCA #### [facility] ([id number]) [address], [address] [place] [address] COMPREHENSIVE METABOLIC PANE [place] 09-21-2023 Albumin [Mass/Vol] 4.0 g/dL Normal 3.2-5.3 [facility] Comment on above: Performed By: #### Susy NOONAN, , CBCA #### [facility] ([id number]) [address], [address] [place] [address] ALP [Catalytic activity/Vol] 48 U/L Normal 39-130 [facility] Comment on above: Performed By: #### Susy NOONAN, , CBCA #### [facility] ([id number]) [address], [address] [place] [address] ALT [Catalytic activity/Vol] 36 U/L Normal 0-40 [facility] Comment on above: Performed By: #### Susy NOONAN, , CBCA #### [facility] ([id number]) [address], [address] [place] [address] Anion gap [Moles/Vol] 11 mmol/L Normal 5-15 [facility] Comment on above: Performed By: #### Susy NOONAN, , CBCA #### [facility] ([id number]) [address], [address] [place] [address] AST [Catalytic activity/Vol] 37 U/L Normal 0-41 [facility] Comment on above: Performed By: #### Susy NOONAN, , CBCA #### [facility] ([id number]) [address], [address] [place] [address] Bilirubin [Mass/Vol] 1.0 mg/dL Normal 0.3-1.2 [facility] Comment on above: Performed By: #### Susy NOONAN, , CBCA #### [facility] ([id number]) [address], [address] [place] [address] Calcium [Mass/Vol] 8.8 mg/dL Normal 8.5-10.5 [facility] Comment on above: Performed By: #### Susy NOONAN, , CBCA #### [facility] ([id number]) [address], [address] [place] [address] Chloride [Moles/Vol] 99 mmol/L Normal 98-109 [facility] Comment on above: Performed By: #### C SHAISTA, , CBCA #### [facility] ([id number]) [address] [place] [address] CO2 [Moles/Vol] 29 mmol/L Normal 22-32 [facility] Comment on above: Performed By: #### C SHAISTA, , CBCA #### [facility] ([id number]) [address], [facility] [address] [place] [address] Creatinine [Mass/Vol] 0.99 mg/dL Normal 0.60-1.30 [facility] Comment on above: Result Comment: METH OD TRACEABLE TO IDMS STANDARD Performed By: #### C SHAISTA, , CBCA #### [facility] ([id number]) [address] [address] GFR/1.73 sq M.predicted among non-blacks MDRD (S/P/Bld) [Vol rate/Area] 79 mL/min/{1.73_m2} Normal >59 [facility] Comment on above: Result Comment: Reported eGFR is based on the CKD-EPI 2020 equation that does not use a race coefficient. Performed By: #### C SHAISTA, , CBCA #### [facility] ([id number]) [address], [address] [place] [address] Glucose [Mass/Vol] 127 mg/dL High 65-99 [facility] Comment on above: Performed By: #### C SHAISTA, , CBCA #### [facility] ([id number]) [address] [place] [address] Potassium [Moles/Vol] 3.8 mmol/L Normal 3.5-5.0 [facility] Comment on above: Performed By: #### C SHAISTA, , CBCA #### [facility] ([id number]) [address] [place] [address] Protein [Mass/Vol] 7.2 g/dL Normal 6.0-8.0 [facility] Comment on above: Performed By: #### C SHAISTA, , CBCA #### [facility] ([id number]) [address], [facility] [address] [place] [address] Sodium [Moles/Vol] 139 mmol/L Normal 134-146 [facility] Comment on above: Performed By: #### C SHAISTA, , CBCA #### [facility] ([id number]) [address], [facility] [address] [place] [address] Urea nitrogen [Mass/Vol] 34 mg/dL High 5-27 [facility] Comment on above: Performed By: #### Susy NOONAN, , CBCA #### [facility] ([id number]) [address], [address] [place] [address] HGB A1C (GLYCO-HGB)on 2023 Glucose [Mass/Vol] 137 mg/dL Normal [facility] Comment on above: Performed By: #### Susy NOONAN, , CBCA ####[facility] ([id number])[address], [facility] [address], [place] [address] HbA1c (Bld) [Mass fraction] 6.4 % High 4.4-5.6 [facility] Comment on above: Result Comment: NOTE ADA Guidelines Result HgbA1c Normal : less than 5.7 % Prediabetes : 5.7 % to 6.4 % Diabetes : > 6.4 % Use with caution in patients with abnormal hemoglobin variants as the half-life of red blood cells and in vivo glycation rates are affected. Performed By: #### Susy NOONAN, , CBCA ####[facility] ([id number])[address], [address] [place] [address] MAGNESIUMon 09-21-2023 Magnesium [Mass/Vol] 2.3 mg/dL Normal 1.8-2.6 [facility] Comment on above: Performed By: #### 1 9123-9 ####[facility] ([id number])[address], [address] [place] [address] Magnesium [Mass/Vol] 1.8 mg/dL Normal 1.8-2.6 [facility] Comment on above: Performed By: #### [place], [address]-1, CBCA ####[facility] ([id number])[address], [address] [place] [address] URINALYSISon 09-21-2023 Bilirubin Ql (U) Negative Normal NEG [facility] Comment on above: Performed By: #### U A ####[facility] ([id number])[address] [address], [place] [address] BLOOD/HGB Negative Normal NEG [facility] Comment on above: Performed By: #### U A ####[facility] ([id number])[address] [address], [place] [address] Color (U) YELLOW Normal YELLOW [facility] Comment on above: Performed By: #### U A ####[facility] ([id number])[address] [address] [place] [address] Glucose Ql (U) Negative Normal NEG [facility] Comment on above: Performed By: #### U A ####[facility] ([id number])[address] [address] [place] [address] Ketones Ql (U) Negative Normal NEG [facility] Comment on above: Performed By: #### U A ####[facility] ([id number])[address], [address] [address] Leukocyte esterase Test strip Ql (U) Negative Normal NEG [facility] Comment on above: Performed By: #### U A ####[facility] ([id number])[address], [address] [place] [address] MUCOUS PRESENT Abnormal NONE [facility] Comment on above: Performed By: #### U A ####[facility] ([id number])[address], [address] [place] [address] Nitrite Ql (U) Negative Normal NEG [facility] Comment on above: Performed By: #### U A ####[facility] ([id number])[address], [address] [place] [address] pH (U) 6.0 [pH] Normal 5.0-8.5 [facility] Comment on above: Performed By: #### U A ####[facility] ([id number])[address], [address] [place] [address] Protein Ql (U) Trace Abnormal NEG [facility] Comment on above: Performed By: #### U A ####[facility] ([id number])[address], [address] [place] [address] R.B.CELLS 3 /hpf Normal 0-5 [facility] Comment on above: Performed By: #### U A ####[facility] ([id number])[address] [address] [place] [address] Specific gravity (U) [Rel density] 1.023 Normal 1.003-1.03 5 [facility] Comment on above: Performed By: #### U A ####[facility] ([id number])[address] [address] [place] [address] TURBIDITY CLEAR Normal CLEAR [facility] Comment on above: Performed By: #### U A ####[facility] ([id number])[address] [address] Urinalysis dipstick W Reflex Microscopic panel (U) URINE RECEIVED WITHOUT PRESERVATIVE-DELAYS IN TRANSPORT MAY AFFECT RESULTS.INTERPRET WITH CAUTION AND CLINICAL CORRELATION IS RECOMMENDED. Normal [facility] Comment on above: Performed By: #### U A ####[facility] ([id number])[address] [address] Urobilinogen (U) [Mass/Vol] mg/dL Normal <1.1 [facility] Comment on above: Performed By: #### U A ####[facility] ([id number])[address] [address] W.B.CELLS 2 /hpf Normal 0-5 [facility] Comment on above: Performed By: #### U A ####[facility] ([id number])[address] [address] CBC AND AUTO DIFFon 09-20-19 24 ABSOLUTE BASOPHIL 0.1 X10E9/L Normal 0.0-0.2 [facility] Comment on above: Performed By: #### 2 4331-1, CBCA, CMP #### [facility] ([id number]) [address] [address] ABSOLUTE NEUTROPHIL 11.3 X10E9/L High 1.5-6.6 [facility] Comment on above: Performed By: #### 2 4331-1, CBCA, CMP #### [facility] ([id number]) [address] [address] Basophils/100 WBC (Bld) 0.5 % Normal [facility] Comment on above: Performed By: #### 2 4331-1, CBCA, CMP #### [facility] ([id number]) [address] [address] Eosinophils (Bld) [#/Vol] 0.0 10*3/uL Normal 0.0-0.4 [facility] Comment on above: Performed By: #### 2 4331-1, CBCA, CMP #### [facility] ([id number]) [address] [address] Eosinophils/100 WBC (Bld) 0.0 % Normal [facility] Comment on above: Performed By: #### 2 4331-1, CBCA, CMP #### [facility] ([id number]) [address] [address] Erythrocyte distribution width (RBC) [Ratio] 13.8 % Normal 11.5-15.0 [facility] Comment on above: Performed By: #### 2 4331-1, CBCA, CMP #### [facility] ([id number]) [address] [address] Hematocrit (Bld) [Volume fraction] 45.3 % Normal 39-49 [facility] Comment on above: Performed By: #### 2 4331-1, CBCA, CMP #### [facility] ([id number]) [address] [address] Hemoglobin (Bld) [Mass/Vol] 15.3 g/dL Normal 13.0-17.0 [facility] Comment on above: Performed By: #### 2 4331-1, CBCA, CMP #### [facility] ([id number]) [address] [address] Lymphocytes (Bld) [#/Vol] 0.5 10*3/uL Low 1.0-3.5 [facility] Comment on above: Performed By: #### 2 4331-1, CBCA, CMP #### [facility] ([id number]) [address] [place] [address] Lymphocytes/100 WBC (Bld) 4.2 % Normal [facility] Comment on above: Performed By: #### 2 4331-1, CBCA, CMP #### [facility] ([id number]) [address], [address] [place] [address] MCH (RBC) [Entitic mass] 28.5 pg Normal 27-34 [facility] Comment on above: Performed By: #### 2 4331-1, CBCA, CMP #### [facility] ([id number]) [address], [address] [place] [address] MCHC (RBC) [Mass/Vol] 33.7 g/dL Normal 32-36 [facility] Comment on above: Performed By: #### 2 4331-1, CBCA, CMP #### [facility] ([id number]) [address], [address] [place] [address] MCV (RBC) [Entitic vol] 85 fL Normal 80-100 [facility] Comment on above: Performed By: #### 2 4331-1, CBCA, CMP #### [facility] ([id number]) [address], [address] [place] [address] Monocytes (Bld) [#/Vol] 0.4 10*3/uL Normal 0-0.9 [facility] Comment on above: Performed By: #### 2 4331-1, CBCA, CMP #### [facility] ([id number]) [address], [address] [place] [address] Monocytes/100 WBC (Bld) 3.0 % Normal [facility] Comment on above: Performed By: #### 2 4331-1, CBCA, CMP #### [facility] ([id number]) [address], [address] [place] [address] Neutrophils/100 WBC (Bld) 92.3 % Normal [facility] Comment on above: Performed By: #### 2 4331-1, CBCA, CMP #### [facility] ([id number]) [address], [facility] [address] [place] [address] Platelet mean volume (Bld) [Entitic vol] 8.2 fL Normal 7-12 [facility] Comment on above: Performed By: #### 2 4331-1, CBCA, CMP #### [facility] ([id number]) [address], [address] [address] Platelets (Bld) [#/Vol] 262 10*3/uL Normal 150-450 [facility] Comment on above: Performed By: #### 2 4331-1, CBCA, CMP #### [facility] ([id number]) [address], [facility] [address] [place] [address] RBC COUNT 5.35 X10E12/L Normal 4.10-5.70 [facility] Comment on above: Performed By: #### 2 4331-1, CBCA, CMP #### [facility] ([id number]) [address], [address] [address] WBC (Bld) [#/Vol] 12.2 10*3/uL High 4.0-11.0 [facility] Comment on above: Performed By: #### 2 4331-1, CBCA, CMP #### [facility] ([id number]) [address], [facility] [address] [place] [address] COMPREHENSIVE METABOLIC PANE [place] 09-20-2023 Albumin [Mass/Vol] 4.1 g/dL Normal 3.2-5.3 [facility] Comment on above: Performed By: #### 2 4331-1, CBCA, CMP #### [facility] ([id number]) [address], [address] [place] [address] ALP [Catalytic activity/Vol] 46 U/L Normal 39-130 [facility] Comment on above: Performed By: #### 2 4331-1, CBCA, CMP #### [facility] ([id number]) [address], [address] [place] [address] ALT [Catalytic activity/Vol] 16 U/L Normal 0-40 [facility] Comment on above: Performed By: #### 2 4331-1, CBCA, CMP #### [facility] ([id number]) [address], [address] [place] [address] Anion gap [Moles/Vol] 10 mmol/L Normal 5-15 [facility] Comment on above: Performed By: #### 2 4331-1, CBCA, CMP #### [facility] ([id number]) [address], [address] [place] [address] AST [Catalytic activity/Vol] 21 U/L Normal 0-41 [facility] Comment on above: Performed By: #### 2 4331-1, CBCA, CMP #### [facility] ([id number]) [address], [address] [place] [address] Bilirubin [Mass/Vol] 0.8 mg/dL Normal 0.3-1.2 [facility] Comment on above: Performed By: #### 2 4331-1, CBCA, CMP #### [facility] ([id number]) [address], [address] [place] [address] Calcium [Mass/Vol] 9.4 mg/dL Normal 8.5-10.5 [facility] Comment on above: Performed By: #### 2 4331-1, CBCA, CMP #### [facility] ([id number]) [address], [address] [place] [address] Chloride [Moles/Vol] 101 mmol/L Normal 98-109 [facility] Comment on above: Performed By: #### 2 4331-1, CBCA, CMP #### [facility] ([id number]) [address], [address] [place] [address] CO2 [Moles/Vol] 28 mmol/L Normal 22-32 [facility] Comment on above: Performed By: #### 2 4331-1, CBCA, CMP #### [facility] ([id number]) [address], [address] [place] [address] Creatinine [Mass/Vol] 1.03 mg/dL Normal 0.60-1.30 [facility] Comment on above: Result Comment: METH OD TRACEABLE TO IDMS STANDARD Performed By: #### 2 4331-1, CBCA, CMP #### [facility] ([id number]) [address], [address] [place] [address] GFR/1.73 sq M.predicted among non-blacks MDRD (S/P/Bld) [Vol rate/Area] 75 mL/min/{1.73_m2} Normal >59 [facility] Comment on above: Result Comment: Reported eGFR is based on the CKD-EPI 2020 equation that does not use a race coefficient. Performed By: #### 2 4331-1, CBCA, CMP #### [facility] ([id number]) [address], [address] [place] [address] Glucose [Mass/Vol] 156 mg/dL High 65-99 [facility] Comment on above: Performed By: #### 2 4331-1, CBCA, CMP #### [facility] ([id number]) [address], [address] [place] [address] Potassium [Moles/Vol] 4.5 mmol/L Normal 3.5-5.0 [facility] Comment on above: Performed By: #### 2 4331-1, CBCA, CMP #### [facility] ([id number]) [address], [address] [place] [address] Protein [Mass/Vol] 7.4 g/dL Normal 6.0-8.0 [facility] Comment on above: Performed By: #### 2 4331-1, CBCA, CMP #### [facility] ([id number]) [address], [address] [place] [address] Sodium [Moles/Vol] 139 mmol/L Normal 134-146 [facility] Comment on above: Performed By: #### 2 4331-1, CBCA, CMP #### [facility] ([id number]) [address], [address] [place] [address] Urea nitrogen [Mass/Vol] 28 mg/dL High 5-27 [facility] Comment on above: Performed By: #### 2 4331-1, CBCA, CMP #### [facility] ([id number]) [address], [address] [place] [address] Glucose Glucometer (BldC) [M ass/Vol]on 09-20-2023 Glucose [Mass/Vol] 150 mg/dL High 65-99 [facility] Glucose [Mass/Vol] 208 mg/dL High 65-99 [facility] Lipid 1996 panelon Cholesterol [Mass/Vol] 183 mg/dL Normal 150-200 [facility] Comment on above: Performed By: #### 2 4331-1, CBCA, CMP #### [facility] ([id number]) [address], [address] [place] [address] Cholesterol in HDL [Mass/Vol] 36 mg/dL Low >39 [facility] Comment on above: Result Comment: HDL <40 mg/dL - High Risk HDL > or = 40mg/dL- Desirable HDL >60 mg/dL - Negative Risk Performed By: #### 2 4331-1, CBCA, CMP #### [facility] ([id number]) [address], [address] [place] [address] Cholesterol in LDL [Mass/Vol] 123 mg/dL Normal <130 [facility] Comment on above: Result Comment: LDL <100 mg/dL - Desirable LDL >160 mg/dL - High Risk Performed By: #### 2 4331-1, CBCA, CMP #### [facility] ([id number]) [address], [address] [address] Cholesterol in VLDL [Mass/Vol] 24 mg/dL Normal 0-30 [facility] Comment on above: Performed By: #### 2 4331-1, CBCA, CMP #### [facility] ([id number]) [address], [address] [place] [address] CHOLESTEROL:HDL 5.1 High 1.0-5.0 [facility] Comment on above: Performed By: #### 2 4331-1, CBCA, CMP #### [facility] ([id number]) [address], [address] [place] [address] Triglyceride [Mass/Vol] 122 mg/dL Normal 27-150 [facility] Comment on above: Performed By: #### 2 4331-1, CBCA, CMP #### [facility] ([id number]) [address], [address] [place] [address] MR BRAIN W WO CONTon 024 MR [...] Pryor MD on 09/20/2023 5:10 AM Normal [facility] PROTIME AND INRon 09-20-2023 INR Coag (PPP) [Relative time] 1.1 {INR} Normal 0.8-1.1 [facility] Comment on above: Performed By: #### P INR, 78938-2 #### [facility] ([id number]) [address], [facility] [address] [place] [address] PT Coag (PPP) [Time] 12.5 s Normal 9.8-13.2 [facility] Comment on above: Performed By: #### P INR, 70782-1 #### [facility] ([id number]) [address], 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 (414.01,413.9) (I25.119) Hypertension (401.9) (I10) Hyperlipidemia (272.4) (E78.5) History of PTCA 2 (V45.82) (Z98.61) History of myocardial infarction (412) (I25.2) History of CVA (cerebrovascular accident) (V12.54) (Z86.73) H/O carotid endarterectomy (V45.89) (Z98.890) Overweight with body mass index (BMI) of 25 to 25.9 in adult (278.02,V85.21) (E66.3,Z68.25) Orders 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 Renew: Aspirin 81 MG Oral Tablet Delayed Release; TAKE 1 TABLET DAILY 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, Hyperlipidemia, Hypertension ALT - Alanine Aminotransferase, Serum; Status:Active - Retrospective Authorization; Requested for:[id number]; AST; Status:Active - Retrospective Authorization; Requested for:[id number]; Lipid Panel; Status:Active - Retrospective Authorization; Requested for:[id number]; 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, Hypertension Renew: Metoprolol Tartrate 25 MG Oral Tablet; Take 1/2 tablet two times daily Hyperlipidemia Renew: Simvastatin 40 MG Oral Tablet; TAKE 1 TABLET AT BEDTIME Overweight with body mass index (BMI) of 25 to 25.9 in adult Healthy Weight Tips; Status:Complete - Retrospective Authorization; Done: [id number] Some eating tips that can help you lose weight.; Status:Complete - Retrospective Authorization; Done: [id number] Patient Instructions Please bring all medicines, vitamins, [...] negative for complaint. Vitals Vital Signs Recorded: [id number] 10:26AM Heart Rate62, R Radial Hfhytdqq104, RUE, Sitting Hyceduwsn56, RUE, Sitting Height5 ft 11 in Usslli268 lb BMI Wpuooqslcf72.8 kg/m2 BSA Calculated2.04 Tobacco Useb) No PHQ-2 [...] EST (Aut (more content not included)... Normal [facility] Tobacco Screening.on 022 Adult depression screening assessment No Agent Panda DO Work Phone: Fall risk assessment b) One or more fall s in the last year [facility] [employer] 250 DO Work Phone: Tobacco use status CPHS b) [facility] [employer] DO Work Phone: XR SHOULDER LT 2V [...] Luz MOLINA Date: 2022-02-04 19:02 Normal [facility] CBC AUTO DIFFon 09-13-2021 BASO # 0.1 103/ul Normal 0.0-0.1 [facility] Comment on above: Performed By: #### C BC #### [facility] [address] [address] [address] Kentrell Clement Basophils/100 WBC (Bld) 0.9 % Normal 0.2-2.0 [facility] Comment on above: Performed By: #### C BC #### [facility] [address] [address] [address] Kentrell Clement EO # 0.5 103/ul Normal 0.0-0.7 [facility] Comment on above: Performed By: #### C BC #### [facility] [address] [place] [address] Dr. Kentrell Clement Eosinophils/100 WBC (Bld) 6.5 % Normal 0.9-7.0 [facility] Comment on above: Performed By: #### C BC #### [facility] [address] [place] [address] Dr. Kentrell Clement Erythrocyte distribution width (RBC) [Ratio] 12.8 % Normal 11.0-15.0 [facility] Comment on above: Performed By: #### C BC #### [facility] [address] [place] [address] Dr. Kentrell Clement Hematocrit (Bld) [Volume fraction] 48.9 % Normal 42.0-54.0 [facility] Comment on above: Performed By: #### C BC #### [facility] [address] [place] [address] Dr. Kentrell Clement Hemoglobin (Bld) [Mass/Vol] 15.7 g/dL Normal 14.0-18.0 [facility] Comment on above: Performed By: #### C BC #### [facility] [address] [place] [address] Dr. Kentrell Clement IG # 0.03 10e3/ul Normal 0.00-0.03 [facility] Comment on above: Performed By: #### C BC #### [facility] [address] [place] [address] Dr. Kentrell Clement IG % 0.4 % Normal 0.0-0.5 [facility] Comment on above: Performed By: #### C BC #### [facility] [address] [place] [address] Dr. Kentrell Clement LYMPH # 1.4 103/ul Normal 1.2-3.8 [facility] Comment on above: Performed By: #### C BC #### [facility] [address] [place] [address] Dr. Kentrell Clement Lymphocytes/100 WBC (Bld) 18.2 % Critically low 20.5-60.0 [facility] Comment on above: Performed By: #### C BC #### [facility] [address] [place] [address] Dr. Kentrell Clement MANUAL DIFF REQ NO Normal [facility] Comment on above: Performed By: #### C BC #### [facility] [address] [place] [address] Dr. Kentrell Clement MCH (RBC) [Entitic mass] 27.8 pg Normal 25.9-34.0 [facility] Comment on above: Performed By: #### C BC #### [facility] [address] [place] [address] Dr. Kentrell Clement MCHC (RBC) [Mass/Vol] 32.1 g/dL Normal 29.9-35.2 [facility] Comment on above: Performed By: #### C BC #### [facility] [address] [place] [address] Dr. Kentrell Clement MCV (RBC) [Entitic vol] 86.5 fL Normal 80.0-94.0 [facility] Comment on above: Performed By: #### C BC #### [facility] [address] [place] [address] Dr. Kentrell Clement MONO # 0.6 103/ul Normal 0.3-0.8 [facility] Comment on above: Performed By: #### C BC #### [facility] [address] [place] [address] Dr. Kentrell Clement Monocytes/100 WBC (Bld) 7.9 % Normal 1.7-12.0 [facility] Comment on above: Performed By: #### C BC #### [facility] [address] [place] [address] Dr. Kentrell Clement NEUT # 5.2 103/ul Normal 1.4-6.5 [facility] Comment on above: Performed By: #### C BC #### [facility] [address] [place] [address] Dr. Kentrell Clement Neutrophils/100 WBC (Bld) 66.1 % Normal 43.0-75.0 [facility] Comment on above: Performed By: #### C BC #### [facility] [address] [place] [address] Dr. Kentrell Clement Platelet mean volume (Bld) [Entitic vol] 9.9 fL Normal 9.5-13.5 [facility] Comment on above: Performed By: #### C BC #### [facility] [address] [place] [address] Dr. Kentrell Clement PLT 249 103/ul Normal 150-450 [facility] Comment on above: Performed By: #### C BC #### [facility] [address] [place] [address] Dr. Kentrell Clement RBC 5.65 106/ul Normal 4.70-6.10 [facility] Comment on above: Performed By: #### C BC #### [facility] [address] [place] [address] Dr. Kentrell Clement WBC 7.8 103/ul Normal 4.0-11.0 [facility] Comment on above: Performed By: #### C BC #### [facility] [address] [place] [address] Dr. Kentrell Clement LIPASEon 09-13-2021 Lipase [Catalytic activity/Vol] 168.0 U/L Normal 23.0-300.0 [facility] Comment on above: Performed By: #### H STROPN, LIPA, CMP #### [facility] [address] [place] [address] Dr. Kentrell Clement PROF 14(COMP METB)on Albumin [Mass/Vol] 4.3 g/dL Normal 3.5-5.0 [facility] Comment on above: Performed By: #### H STROPN, LIPA, CMP #### [facility] [address] [address] [address] Kentrell Clement Albumin/Globulin [Mass ratio] 1.0 {ratio} Normal [facility] Comment on above: Performed By: #### H STROPN, LIPA, CMP #### [facility] [address] [address] [address] Kentrell Clement ALP [Catalytic activity/Vol] 52 U/L Normal 38-126 [facility] Comment on above: Performed By: #### H STROPN, LIPA, CMP #### [facility] [address] [address] [address] Kentrell Clement ALT [Catalytic activity/Vol] 27 U/L Normal 21-72 [facility] Comment on above: Performed By: #### H STROPN, LIPA, CMP #### [facility] [address] [address] [address] Kentrell Clement Anion gap [Moles/Vol] 9.7 mmol/L Normal [facility] Comment on above: Performed By: #### H STROPN, LIPA, CMP #### [facility] [address] [address] [address] Kentrell Clement AST [Catalytic activity/Vol] 17 U/L Normal 17-59 [facility] Comment on above: Performed By: #### H STROPN, LIPA, CMP #### [facility] [address] [address] [address] Kentrell Clement Bilirubin [Mass/Vol] 0.6 mg/dL Normal 0.2-1.3 [facility] Comment on above: Performed By: #### H STROPN, LIPA, CMP #### [facility] [address] [address] [address] Kentrell Clement Calcium [Mass/Vol] 9.6 mg/dL Normal 8.4-10.2 [facility] Comment on above: Performed By: #### H STROPN, LIPA, CMP #### [facility] [address] [address] [address] Kentrell Clement Chloride [Moles/Vol] 102 mmol/L Normal 98-107 [facility] Comment on above: Performed By: #### H STROPN, LIPA, CMP #### [facility] [address] [place] [address] Dr. Kentrell Clement CO2 [Moles/Vol] 28.3 mmol/L Normal 22.0-30.0 [facility] Comment on above: Performed By: #### H STROPN, LIPA, CMP #### [facility] [address] [address] [address] Kentrell Clement Creatinine [Mass/Vol] 1.20 mg/dL Normal 0.66-1.25 [facility] Comment on above: Performed By: #### H STROPN, LIPA, CMP #### [facility] [address] [place] [address] Dr. Kentrell Clement EGFR-AF TANZANIAN >60 Normal >=60 [facility] Comment on above: Performed By: #### H STROPN, LIPA, CMP #### [facility] [address] [place] [address] Dr. Kentrell Clement EGFR-NON AF TANZANIAN 59 mL/min/1.73m2 Critically low >=60 [facility] Comment on above: Performed By: #### H STROPN, LIPA, CMP #### [facility] [address] [place] [address] Dr. Kentrell Clement Globulin (S) [Mass/Vol] 4.3 g/dL Normal [facility] Comment on above: Performed By: #### H STROPN, LIPA, CMP #### [facility] [address] [place] [address] Dr. Kentrell Clement Glucose [Mass/Vol] 149 mg/dL Critically high 74-106 T [facility] Comment on above: Performed By: #### H STROPN, LIPA, CMP #### [facility] [address] [place] [address] Dr. Kentrell Clement Potassium [Moles/Vol] 4.0 mmol/L Normal 3.4-5.0 [facility] Comment on above: Performed By: #### H STROPN, LIPA, CMP #### [facility] [address] [address] [address] Kentrell Clement Protein [Mass/Vol] 8.6 g/dL Critically high 6.1-8.2 [facility] Comment on above: Performed By: #### H STROPN, LIPA, CMP #### [facility] [address] [place] [address] Dr. Kentrell Clement Sodium [Moles/Vol] 136 mmol/L Critically low 137-145 Th [facility] Comment on above: Performed By: #### H STROPN, LIPA, CMP #### [facility] [address] [place] [address] Dr. Kentrell Clement Urea nitrogen [Mass/Vol] 21.0 mg/dL Critically high 9.0-20.0 [facility] Comment on above: Performed By: #### H STROPN, LIPA, CMP #### [facility] [address] [place] [address] Dr. Kentrell Clement Urea nitrogen/Creatinine [Mass ratio] 17.5 mg/mg Normal [facility] Comment on above: Performed By: #### H STROPN, LIPA, CMP #### [facility] [address] [place] [address] Dr. Kentrell Clement TROPONIN, HIGH SENSITIVITYon 09-13-2021 HSTROP 12.6 pg/mL Normal 4.0-42.2 [facility] Comment on above: Result Comment: CUT- OFF POINTS HAVE BEEN ESTABLISHED BASED ON THE FOURTH UNIVERSAL DEFINITIONS OF MYOCARDIAL INFARCTION. THE UPPER REFERENCE LIMIT (URL) OF TROPONIN, DEFINED THE 99TH PERCENTILE OF cTnI DISTRIBUTION IN A REFERENCE POPULATION, HAS BEEN CONFIRMED THE DECISION THRESHOLD FOR IN DIAGNOSIS. Performed By: #### H STROPN #### [facility] [address] [place] [address] Dr. Kentrell Clement HSTROP 12.4 pg/mL Normal 4.0-42.2 [facility] Comment on above: Result Comment: CUT- OFF POINTS HAVE BEEN ESTABLISHED BASED ON THE FOURTH UNIVERSAL DEFINITIONS OF MYOCARDIAL INFARCTION. THE UPPER REFERENCE LIMIT (URL) OF TROPONIN, DEFINED THE 99TH PERCENTILE OF cTnI DISTRIBUTION IN A REFERENCE POPULATION, HAS BEEN CONFIRMED THE DECISION THRESHOLD FOR IN DIAGNOSIS. Performed By: #### H STROPN, LIPA, CMP #### [facility] [address] [place], [place] [address] Dr. Kentrell Clement XR CHEST 2 Von [...] SHERIF TREADWELL Date: 2021-09-13 09:51 Normal [facility] CARDIAC STRESS/REST INJE CTIONon 05-17-2021 [facility] CARDIAC STRESS/REST INJECTION Patient Name: JANICE SHULTZ STUDY: MYOCARDIAL PERFUSION STRESS TEST WITH EXERCISE CONVERTED TO LEXISCAN Performing facility: [facility], [address] [place] [address], [address], [place] [address] [facility] Provider: Devika Evangelista DO, FACC PCP: Dr. Reyna Paredes Supervising provider: Devika Evangelista DO, FACC INDICATION: CAD with angina Fatigue HISTORY: Gender: M; Age: 76 y/o ; Height: 180.34 cm; Weight: 85.9715677 kg. High Cholesterol; Previous IN; HTN; Fatigue; Denies smoking. Cardiac catheterization on 2014. PTCA on 2014. COMPARISON: No comparison. ACCESSION NUMBER(S): [id number]; [id number]; [id number] ORDERING CLINICIAN: [place] TECHNIQUE: ONE DAY [...] Electronically signed by: JAYLEN FERRARI MD Normal [facility] No Panel Informationon 05-17 Normal -[facility]-Sandu laury 250 DO Work Phone: BASIC METABOLIC PANELon 01-11 Anion gap 8 mmol/L Normal 7-16 [facility] Comment on above: Performed By: #### L AB15 ####[facility] [id number] [place] [address] [place]#### [id number] ####[facility] [id number] [place] [address] [facility] [id number], [phone] BASIC METABOLIC PANEL Normal [facility] Comment on above: Result Comment: Slig htly hemolyzed. Hemolysis may affect this result. Specimen may be redrawn at the discretion of ordering physician. Performed By: #### L AB15 ####[facility] [id number] [place] [address] [place]#### [id number] ####[facility] [id number] [place] [address] [facility] [id number] [phone] BUN (urea nitrogen) 14 mg/dL Normal 7-18 [facility] Comment on above: Performed By: #### L AB15 ####[facility] [id number] [place] [address] [place]#### [id number] ####[facility] [id number] [place] [address] [facility] [address] [id number], [place] [phone] Calcium 8.0 mg/dL Abnormal 8.5-10.1 [facility] Comment on above: Performed By: #### L AB15 ####[facility] [id number] [place] [address] [place]#### [id number] ####[facility] [id number] [place] [address] [facility] [id number], [phone] Chloride 109 mmol/L Abnormal 98-107 [facility] Comment on above: Performed By: #### L AB15 ####[facility] [id number] [place] [address] [place]#### [id number] ####[facility] [id number] [place] [address] [place] [facility], [phone] CO2 28 mmol/L Normal 21-32 [facility] Comment on above: Performed By: #### L AB15 ####[facility] [id number] [place] [address] [place]#### [id number] ####[facility] [id number] [place] [address] [facility] [id number], [phone] Creatinine 0.9 mg/dL Normal 0.60-1.3 [facility] Comment on above: Performed By: #### L AB15 ####[facility] [id number] [place] [address] [place]#### [id number] ####[facility] [id number] [place] [address] [facility], [address] [phone] eGFR (black) mL/min/{1.73_m2} Normal >60 [facility] Comment on above: Result Comment: GFR is estimated using creatinine, age, gender, and race. Patient's values should be interpreted as a trend. For additional information: [email or web address] Performed By: #### L AB15 ####[facility] [id number] [place] [address] [facility]#### [id number] ####[facility] [id number] [place] [address] [facility] [address] [id number] [address] [phone] eGFR (non-black) mL/min/{1.73_m2} Normal >60 [facility] Comment on above: Result Comment: GFR is estimated using creatinine, age, gender, and race. Patient's values should be interpreted as a trend. For additional information: [email or web address] Performed By: #### L AB15 ####[facility] [id number] [place] [address] [place]#### [id number] ####[facility] [id number] [address], [facility]31 [facility] [phone] Glucose mass conc 114 mg/dL Abnormal 74-106 [facility] Comment on above: Performed By: #### L AB15 ####[facility] [id number] [place] [address] [place]#### [id number] ####[facility] [id number] [place] [address] [facility] [phone] Potassium molar conc 4.1 mmol/L Normal 3.5-5.1 [facility] Comment on above: Performed By: #### L AB15 ####[facility] [id number] [place] [address] [place]#### [id number] ####[facility] [id number] [place] [address] [facility] [address] [id number], [address] [phone] Sodium 145 mmol/L Normal 136-145 [facility] Comment on above: Performed By: #### L AB15 ####[facility] [id number] [place] [address] [place]#### [id number] ####[facility] [id number] [place] [address] [facility] [place] [address] [address], [phone] CBC W/DIFFon 01-23-2018 Basophils/100 WBC Auto (Bld) 1.1 % Normal [facility] Comment on above: Performed By: #### L AB15 ####[facility] [id number] [place] [address] [place]#### [id number] ####[facility] [id number] [place] [address] [facility] [address] [phone], [phone] BSA (Body Surface Area) 0.1 K/uL Normal 0.0-0.1 [facility] Comment on above: Performed By: #### L AB15 ####[facility] [id number] [place] [address] [place]#### [id number] ####[facility] [id number] [place] [address] [facility], [place] [phone] Eosinophils 0.4 10*3/uL Normal 0.0-0.4 [facility] Comment on above: Performed By: #### L AB15 ####[facility] [id number] [place] [address] [place]#### [id number] ####[facility] [id number] [place] [address] [place] [facility], [place] [address] Eosinophils 8.2 10*3/uL Normal [facility] Comment on above: Performed By: #### L AB15 ####[facility] [id number] [place] [address] [place]#### [id number] ####[facility] [place] [id number] [address], [facility] [address] [phone], [place] [address] Erythrocyte distribution width Auto Ratio (RBC) 13.2 % Normal 11.7-15.2 [facility] Comment on above: Performed By: #### L AB15 ####[facility] [id number] [place] [address] [place]#### [id number] ####[facility] [id number] [place] [address] [facility], [place] [address] Erythrocytes (RBC) 5.32 10*6/uL Normal 4.30-5.86 [facility] Comment on above: Performed By: #### L AB15 ####[facility] [id number] [place] [address] [place]#### [id number] ####[facility] [id number] [place] [address] [place] [facility], [place] [phone] Hematocrit (HCT) 45.5 % Normal 39.0-51.5 [facility] Comment on above: Performed By: #### L AB15 ####[facility] [id number] [place] [address] [place]#### [id number] ####[facility] [id number] [place] [address] [facility], [place] [phone] Hemoglobin mass conc (Bld) 15.3 g/dL Normal 13.1-17.6 [facility] Comment on above: Performed By: #### L AB15 ####[facility] [id number] [place] [address] [place]#### [id number] ####[facility] [id number] [place] [address] [facility], [phone] Lymphocytes 22.0 10*3/uL Normal [facility] Comment on above: Performed By: #### L AB15 ####[facility] [id number] [place] [address] [place]#### [id number] ####[facility] [id number] [place] [address] [facility] [place] [id number], [phone] Lymphocytes 1.1 10*3/uL Normal 0.8-3.6 [facility] Comment on above: Performed By: #### L AB15 ####[facility] [id number] [place] [address] [place]#### [id number] ####[facility] [id number] [place] [address] [facility], [place] [phone] MCH 28.7 pg Normal 28.4-33.4 [facility] Comment on above: Performed By: #### L AB15 ####[facility] [id number] [place] [address] [place]#### [id number] ####[facility] [id number] [place] [address] [facility] [place] [id number], [place] [phone] MCHC mass conc (RBC) 33.5 g/dL Normal 31.1-37.0 [facility] Comment on above: Performed By: #### L AB15 ####[facility] [id number] [place] [address] [place]#### [id number] ####[facility] [id number] [place] [address] [facility] [place] [id number], [phone] MCV 85.6 fL Normal 85.0-99.0 [facility] Comment on above: Performed By: #### L AB15 ####[facility] [id number] [place] [address] [place]#### [id number] ####[facility] [id number] [place] [address] [facility] [place] [id number], [place] [phone] Monocytes 7.3 10*3/uL Normal [facility] Comment on above: Performed By: #### L AB15 ####[facility] [id number] [place] [address] [place]#### [id number] ####[facility] [place] [id number] [place] [address] [facility] [facility]vdBeaverc[address], [place] [phone] Monocytes 0.4 10*3/uL Normal 0.3-0.9 [facility] Comment on above: Performed By: #### L AB15 ####[facility] [id number] [place] [address] [place]#### [id number] ####[facility] [place] [id number] [place] [address] [facility] [place] [id number]vd[address], [place] [phone] Neutrophils 3.1 10*3/uL Normal 2.0-7.3 [facility] Comment on above: Performed By: #### L AB15 ####[facility] [id number] [place] [address] [place]#### [id number] ####[facility] [id number] [place] [address] [facility] [place] [id number]vd[address], [place] [phone] Neutrophils 61.4 10*3/uL Normal [facility] Comment on above: Performed By: #### L AB15 ####[facility] [place] [id number] [place] [address] [place]#### [id number] ####[facility] [id number] [address], [address] AND [facility], Lockport DivisionvdBeavercreChristopher [place] [phone] Platelets 187 10*3/uL Normal 154-393 [facility] Comment on above: Performed By: #### L AB15 ####[facility] [id number] [address], [address]#### [id number] ####[facility] [id number] [address], [address] [facility] [place] [phone] WBC (Leukocytes) 5.0 10*3/uL Normal 4.0-10.5 [facility] Comment on above: Performed By: #### L AB15 ####[facility] [id number] [address] [address], [address]#### [id number] ####[facility] [id number] [address], [address] AND [place] [phone] PentNYU Langone Hassenfeld Children's HospitalBeBrianna Ville [phone] CT-HEAD W/O CONTRASTon 01-23 CT-HEAD W/O CONTRAST [...] Finn Gentile MD, 01/23/2018 11:43 AM Normal [facility] EKG STANDARD 12 LEADon 01-23 Pulse (Heart Rate) RR Interval= 822 msP R Interval= 180 msQRSD Interval= 115 msQT Interval= 385 msQTc Interval= 425 msHeart Rate= 73 msP [place]= 60 degQRS [place]= -26 degT Wave [place]= 5 degI: 40 [place]= -12 degT: 40 [place]= -39 degST [place]= -61 degSinus rhythm Nonspecific intraventricular conduction delay Inferior infarct, old Electronically Signed by: Sherif Nam) 23-Jan-2018 10:43:27 Date and Time of Study: 2018-01-23 10:11:14 Normal [facility] TROPONIN Ion 01-23-2018 Troponin I.cardiac mass conc ng/mL Normal 0.000-0.04 5 [facility] Comment on above: Performed By: #### L AB15 ####[facility] [id number] [address]#### [id number] ####[facility] [id number] [phone] Troponin I.cardiac mass conc Normal [facility] Comment on above: Result Comment: Trop onin I 0.045-0.600 is abnormal but not clinically relevant. Please correlate with other clinical findings. Troponin I >0.600 is clinically relevant in accordance with WHO criteria. Performed By: #### L AB15 ####[facility] [id number] [address]#### [id number] ####[facility] [id number] [address] AND [phone] Consultson 09-08-2016 Consults Encounter Department : [facility] WESTConsults by Paris An RD at 09/08/2016 10:08 AMAuthor: ADDY Chauervice: NutritionAuthor Type: Registered DietitianFiled: 09/08/2016 10:09 AMNote Time: 09/08/2016 10:08 AMNote Type: ConsultsStatus: SignedEditor: Paris An RD (Registered Dietitian) Consult Orders: 1. IP Consult To Nutrition Care [[id number]] ordered by Jailene Flores MD at 09/07/16 [...] be available as needed for any questions. [facility] Procedureson 09-08-2016 Procedures Encounter Department : [facility] SURG WESTProcedures by Asmita De at 09/08/2016 2:27 PMAuthor: Asmita Dawkinservice: CardiologyAuthor Type: TechnologistFiled: 09/08/2016 2:46 PMNote Time: 09/08/2016 2:27 PMNote Type: ProceduresStatus: SignedEditor: Asmita De (Technologist)Cosigner: Walt Mckeon MD at 09/08/2016 2:49 PMPatient InformationPatient NameSexOmar [id number] Progress Notes by Walt Mckeon MD at 09/08/2016 2:23 PMAuthor: ANDRESSA Huangervice: CardiologyAuthor Type: PhysicianFiled: 09/08/2016 2:27 PMNote Time: 09/08/2016 2:23 PMStatus: AddendumEditor: Walt Mckeon MD (Physician)Related Notes:Original Note by Walt Mckeon MD (Physician) filed at 09/08/2016 2:27 PMExpand All <#> Collapse All <#>BRENDAN ReportName: Janice Shultz Date/Time of Admission: 09/07/2016 7:48 [id number] Attending Provider: Dwight Jackson MD Room/Bed: [facility]/[id number]: 1945 71 y.o.DATE OF PROCEDURE: 09/08/2016Procedure: Transesophageal [...] at bedside.Electronicallysigned by: Walt Mckeon MD 09/08/2016 [facility] Progress Noteson 09-08-2016 Progress Notes Encounter Department : [facility] MED SURG WESTProess Notes by Dwight Jackson MD at 09/08/2016 [...] has been reviewed and discussed with Dr.George Alonso Jackson MD Electronicallysigned by: Verónica Holden, TEACHERS' ASSISTANT-OFFICE MANAGER EXECUTIVE ASSISTANT 09/08/2016Subjective: Patient states he is doing better. [...] <0.015I have reviewed all the above laboratory findingsSusaalonso Holden, TEACHERS' ASSISTANT-CNP09/08/2016Attending addendumPt seen with the midlevel providerHistory/exam/labs/pl an of care reviewedAdm for a stroke with mutliple infarcts in R hemisphereHad a BRENDAN that was negativeHemodynamically stableFU with cardiology for a Loop recorder to r/o PAFContinue current meds.No DC summary <48hrs in KMCTime spent on DC process 35 minutes [facility] Progress Notes Encounter Department : [facility] MED SURG WESTProgress Notes by Alberto [...] be arranged by his local physicians in [facility] Progress Notes Encounter Department : [facility] MED SURG WESTProgress Notes by Walt Mckeon MD at 09/08/2016 2:23 PMAuthor: ANDRESSA Huangervice: CardiologyAuthor Type: PhysicianFiled: 09/08/2016 2:27 PMNote Time: 09/08/2016 2:23 PMNote Type: Progress NotesStatus: AddendumEditor: Walt Mckeon MD (Physician)Related Notes:Original Note by Walt Mckeon MD (Physician) filed at 09/08/2016 2:27 PMTEE ReportName: Janice Shultz Date/Time of Admission: 09/07/2016 7:48 [facility] [id number] Attending Provider: Dwight Larkinmarce [facility]/Bed: R3306/T0767H : 1945 71 y.o.DATE OF PROCEDURE: 09/08/2016Procedure: Transesophageal EchocardiogramSurgeon: Walt MckeonAssist: JosDx/Indication: Rule out cardioembolic strokeComplications: NoneThe risks and [...] at bedside.Electronicallysigned by: Walt Mckeon MD 09/08/2016 [facility] Progress Notes Encounter Department : [facility] MED SURG WESTProess Notes by Kamla Ramos RN at 09/08/2016 2:24 PMAuthor: ANNE Bailonervice: (none)Author Type: Registered NurseFiled: 09/08/2016 2:25 PMNote Time: 09/08/2016 2:24 PMNote Type: Progress NotesStatus: SignedEditor: Kamla Ramos RN (Registered Nurse)Patient arrived to [facility] from [facility] in stable condition. Patient awake, resting in bed, VSS, willcontinue to monitor Normal [facility] Progress Notes Encounter Department : [facility] MED SURG WESTProgress Notes by Alberto Newman MD at 09/08/2016 12:12 PMAuthor: ANDRESSA Willervice: CardiologyAuthor Type: PhysicianFiled: 09/08/2016 1:45 PMNote Time: 09/08/2016 12:12 PMNote Type: Progress NotesStatus: SignedEditor: Alberto Newman MD (Physician)Related Notes:Original Note by Monet Wallace PA-C (Physician [place]) filed at 09/08/201612:15 PM Cardiology Progress NoteAssessment:Acute ARB-LOS-skbsiffq right side acute strokesA. Hx of CVA right parieto-occipital lobe 11/26 has been on Plavix, ASACarotid stenosis bilateral ICA 1-49% stenosis CAD s/p IN 2014 with stent o4-XzitnngzAOENIR-hq simvastatinHypertriglyceride [facility] Instructor: Barbara Gupta:HR and BP stable. Have not [...] data filed at 09/08/16 1100Gross per 24 nbqcZhupmf417.17 mlOutput 200 xsAqa303.17 mlPhysical Exam:General AppearanceStanding, ambulating, NADHEENTNC/ATChestClearCardi ovascularRRR no [...] 10 mgOralNIGHTLY AT BEDTIMEMEDSINFUSIONS: -0.9 % sodium ytzmojes84 mL/hr (09/08/16 0818)Imaging Studies: Reviewed in chartElectronicallysigned by: ALBERTO NEWMAN, 09/08/2016, 1:45 PM [facility] Progress Notes Encounter Department : [facility] SURG WESTProgress Notes by Lissette Valdovinos PTA at 09/08/2016 9:23 AMAuthor: Lissette Valdovinos PTAService: PT TreatmentAuthor Type: Physical Therapy AssistantFiled: 09/08/2016 12:24 PMNote Time: 09/08/2016 9:23 AMNote Type: Progress NotesStatus: SignedEditor: Lissette Valdovinos PTA (Coil Cleaner)Related Notes:Original Note by Lissette Valdovinos PTA (Coil Cleaner) filed 09/08/2016 11:57 AMCosigner: Jana Vivian Ashby, PT at 09/14/2016 12:30 PM[facility]Physical Therapy TreatmentAdmit date: 09/07/2016 Today's Date: 09/08/2016Patient Name/MR#: Janice Shultz [id number] Room: [facility]/[id number] Diagnosis: Left arm numbness [R20.0]TIA (transient ischemic attack) [G45.9]Admitting Provider:No admitting provider for patient encounter.Height:5' 11 (1.803 m) Weight: 196 lb 12.8 oz (89.268 kg)Recent Labs:Recent Labs 09/07/16 0816HEMOGLOBIN 15.3Current Medical Status: per chart review: 71 y.o. R - handed male presenting to [facility] with left arm numbness and [...] here visiting family, as pt is from [facility], when this occurred; pt and shareIADL; [...] s:Barriers to Learning:NoneCognitionHearin gVisionMotivationReadinessJu dgmentInsightAwarenessEasily DistractedPre-MorbidMental StatusLanguage barrier(non-North Korean speaking)Communication BarrierPainComments:Observat ions/Vitals: pt in bed with [...] 28 < 18 = High Risk of Hlphs41-38 = Moderate Risk > 24 = Low RiskBalance:SittingStatic-GD ynamic-GStandingStatic- FDynamic-FExercises this session: seated AROM x 10 with hip Flexon, ab/add, ap and LAQPatient/Family Education:Role of PTTx plan reviewedFamily PresentNo Family PresentPrecautionsHEPGait/ air trainingSouthwood Community Hospitale SafetyBody MechanicsTransfer TrainingCar TransferInterdisciplinary Communication:Spoke w/ RN [...] will perform sit to stand transfers with IN.3. Pt will amb. 25 ft with SUP [...] 1 flight of stairs with HR and IN w/o LOB.Discharge Recommendations:PT Discharge Recommendations: Home with [...] Frequency: BID, 7 days/wkDuration of Treatment: 2 weeksSarah Valdovinos, PTATime In: 900 Time Out: 923Total [...] 1220Total tx time: 10Timed coded minutes: 10 [facility] Progress Notes Encounter Department : [facility] MED SURG WESTProgress Notes by Devyn Bocanegra DO at 09/08/2016 10:33 AMAuthor: Marianne Mehtarvice: NeurologyAuthor Type: PhysicianFiled: 09/08/2016 11:48 AMNote Time: 09/08/2016 10:33 AMNote Type: Progress NotesStatus: SignedEditor: Devyn Bocanegra DO (Physician).Neurology Progress NoteSOUTHEAST HEALTH MEDICAL CENTERPatient Name: Janice ChandlerB: 1945MRN: [id number]:The patient was seen and examined. No acute changes over night, no new stroke symptoms. He feelspretty much back to his baseline.Objective:Current Facility-Administered MedicationsMedicationDoseRou teFrequencyProviderLast RateLast Dose -0.9 % sodium chloride infusion 50 mL/hrIntravenousCONTINUOUSSa kady Flores MD50 mL/hr at09/08/16 320385 mL/hr at 09/08/16 0818 -0.9 % sodium [...] 09/08/16 0819Or -aspirin suppository 300 mg 300 mgRectalDAILYSjordan Flores MD -atropine 0.1 mg/ mL injection [...] 0436 -lidocaine (XYLOCAINE) injection 50-100 mg 50-100 mgIntJairon Sheridan MD -metoprolol tartrate (LOPRESSOR) tablet 25 mg 25 mgOralTWO TIMES DAILYValerie Jeremiah Sommer MD25 mg at 09/08/16 0819 -morphine injection 2 mg 2 mgIntravenousQ5 Min PRStephanie Sheridan MD -nitroGLYCERIN (NITROSTAT) SL tablet 0.4 mg 0.4 mgSublingualQ5 Min PRStephanie Sheridan MD -ondansetron (ZOFRAN) injection 4 mg 4 mgIntravenousEVERY 4 HOURS PRSophie García -ondansetron (ZOFRAN-ODT) disintegrating tablet 4 mg 4 mgOralEVERY 4 HOURS PRNSamenelson Flores MD -promethazine (PHENERGAN) 12.5 mg in 0.9 % sodium chloride 50 mL IVPB 12.5 mgIntravenousEVERY4 HOURS PRNSameSophie Mares -promethazine (PHENERGAN) injection 12.5 mg 12.5 mgIntramuscularEVERY 4 HOURS PRNSameSophie Rivera -promethazine (PHENERGAN) tablet 12.5 mg 12.5 mgOralEVERY 4 HOURS PRNSameer MD Maria Teresa -senna-docusate (SENOKOT-S) 8.6-50 mg per tablet 2 tablet 2 tabletOralNIGHTLY AT BEDTIMEPRNSameer MD Maria Teresa -simvastatin (ZOCOR) tablet 10 mg 10 mgOralNIGHTLY AT BEDTIMESame Maria Teresa MD10 mg at09/07/162022Vital Signs:BP: 137/97 mmHg (09/08 [...] during the hospital encounter of 09/07/16Lipid PanelResultValueRef GidgsRavgfuvypng560<=200 mg/nOShqecwshlbgjx443 (A)0-149 mg/dLHDL36 (A)40-60 mg/dLLDL Cholesterol0-99 mg/cZFNAD56 (A)0-40 mg/dL,No results found for this or any previous visit.Last Liver Function Results:No results for input(s): ALT, AST, BILIDIR, ALKPHOS in the last 168 hours.Invalid input(s): BILITOTALImaging/Other Studies:CT head: nonacute, stable old infarction in right parieto-occipital lobe, stable small vesselischemic disease.MRI brain: Multiple scattered embolic infarctions throughout the MCA/SECURITY MANAGER distributionCUS: B 1-49%Echo: EF 60% November 2015Reviewed [...] brain: Multiple scattered embolic infarctions throughout the MCA/SECURITY MANAGER distribution3. CUS: B 1-49%4. Echo: EF: 60%3.Risk Factors: age, HTN, recent infarct.4.Secondary stroke prevention: on ASA, Plavix and Zocor outpatient.5.Recommend BRENDAN as this patient has very likely embolic origin of infarctions with a stable ECHO.BRENDAN scheduled for 2. 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.6.Follow up outpatient with stroke clinic7.Continue PT/OT/Judith Bocanegra DO 09/08/2016 Normal [facility] Progress Notes Encounter Department : [facility] MED SURG WESTProgress Notes by Devyn Mcmahon OT at 09/08/2016 8:30 AMAuthor: SUNNY Olveraervice: OT TreatmentAuthor Type: Occupational TherapistFiled: 09/08/2016 10:55 AMNote Time: 09/08/2016 8:30 AMNote Type: Progress NotesStatus: SignedEditor: Devyn Mcmahon OT (Occupational Therapist)[facility] Occupational Therapy TreatmentAdmit date: 09/07/2016 Today's Date: 09/08/2016Patient Name/MR#: Janice Shultz [id number] Room: [address]itting Diagnosis: Left arm numbness [R20.0]TIA (transient ischemic attack) [G45.9]Admitting Provider:No admitting provider for patient encounter.Height:5' 11 (1.803 m) Weight: 196 lb 12.8 oz (89.268 kg)Recent Labs:Recent Labs 09/07/16 0816HEMOGLOBIN 15.3Current Medical Status: per chart review: 71 y.o. R - handed male presenting to [facility] with left arm numbness and [...] here visiting family, as pt is from [facility], when this occurred; pt and Mandi; pt reports he has built 3 housesPrecautions [...] to LearningNoneCognitionHearing VisionMotivationReadinessEas lupe DistractedJudgmentInsightAwa renessPre-MorbidMental StatusLanguage barrierNon-North Korean SpeakingCommunicationBarrier Observations/Vitals: pt seen supine with telemetry, [...] TransferxTub/Shower xFunctional Mobility Comments: bed mobility completed IN, use of unilateral BR. Pt completed STSfrom [...] ADL MI2. Pt will complete LB dressing IN, using AE as needed3. Pt will stand x10 minutes IN while completing ADL tasks with no inc [...] Time: 25Timed Code Minutes : 25 Normal [facility] BASIC METABOLIC PANELon 08-14 Anion gap 11 mmol/L Normal 7-16 [facility] Comment on above: Performed By: #### L AB320 ####[facility] CLIA [id number] [place] [address] [facility] [place] [address] [phone]#### [id number] ####[facility] [id number] [place] [address] [facility] BUN (urea nitrogen) 14 mg/dL Normal 7-18 [facility] Comment on above: Performed By: #### L AB320 ####[facility] [id number] [place] [address] [facility]IND[facility]vdBe[address], [place] [phone]#### [id number] ####[facility] [id number] [place] [address] [place] Calcium 9.2 mg/dL Normal 8.5-10.1 [facility] Comment on above: Performed By: #### L AB320 ####[facility] [id number] [place] [address] [facility]vd[address], [place] [phone]#### [id number] ####[facility] [id number] [place] [address] [place] Chloride 101 mmol/L Normal 98-107 [facility] Comment on above: Performed By: #### L AB320 ####[facility] [id number] [place] [address] [facility]vd[address], [place] [phone]#### [id number] ####[facility] [id number] [place] [address] [place] CO2 27 mmol/L Normal 21-32 [facility] Comment on above: Performed By: #### L AB320 ####[facility] [id number] [place] [address] [facility], [place] [phone]#### [id number] ####[facility] [id number] [place] [address] [place] Creatinine 1.03 mg/dL Normal 0.60-1.30 [facility] Comment on above: Performed By: #### L AB320 ####[facility] CLIA [id number] [place] [address] [facility], [phone]#### [id number] ####[facility] CLIA [id number] [place] [address] [facility] eGFR (black) mL/min/{1.73_m2} Normal >60 [facility] Comment on above: Result Comment: GFR is estimated using creatinine, age, gender, and race. Patient's values should be interpreted as a trend. For additional information: [email or web address] Performed By: #### L AB320 ####[facility] CLIA [id number] [place] [address] [facility], [place] [phone]#### [id number] ####[facility] [id number] [place] [address] [facility] eGFR (non-black) mL/min/{1.73_m2} Normal >60 [facility] Comment on above: Result Comment: GFR is estimated using creatinine, age, gender, and race. Patient's values should be interpreted as a trend. For additional information: [email or web address] Performed By: #### L AB320 ####[facility] CLIA [id number] [place] [address] [facility], [phone]#### [id number] ####[facility] [id number] [place] [address] [facility] Glucose mass conc 115 mg/dL Abnormal 74-106 [facility] Comment on above: Performed By: #### L AB320 ####[facility] CLIA [id number] [place] [address] [facility] AND [place] [id number] [address], [place] [phone]#### [id number] ####[facility] [id number] [place] [address] [facility] Potassium molar conc 4.8 mmol/L Normal 3.5-5.1 [facility] Comment on above: Result Comment: Mode rate hemolysis present. Performed By: #### L AB320 ####[facility] [id number] [place] [address] [facility] AND [place] [id number] [address], [place] [phone]#### [id number] ####[facility] [id number] [place] [address] [facility] Sodium 139 mmol/L Normal 136-145 [facility] Comment on above: Performed By: #### L AB320 ####[facility] [id number] [place] [address] [facility] AND [place] [id number] [address], [place] [phone]#### [id number] ####[facility] [id number] [place] [address] [facility] CBC W/DIFFon 09-07-2016 Basophils/100 WBC Auto (Bld) 1.0 % Normal [facility] Comment on above: Performed By: #### L AB320 ####[facility] [id number] [place] [address] [facility], [place] [phone]#### [id number] ####[facility] CLIA [id number] [place] [address] [place] BSA (Body Surface Area) 0.1 K/uL Normal 0.0-0.1 [facility] Comment on above: Performed By: #### L AB320 ####[facility] [id number] [place] [address] [facility]IND[facility], [place] [phone]#### [id number] ####[facility] [id number] [place] [address] [place] Eosinophils 0.2 10*3/uL Normal 0.0-0.4 [facility] Comment on above: Performed By: #### L AB320 ####[facility] [id number] [place] [address] [facility]IND[facility], [place] [phone]#### [id number] ####[facility] [id number] [place] [address] [place] Eosinophils 2.7 10*3/uL Normal [facility] Comment on above: Performed By: #### L AB320 ####[facility] [id number] [place] [address] [facility], [place] [phone]#### [id number] ####[facility] [id number] [place] [address] [place] Erythrocyte distribution width Auto Ratio (RBC) 11.8 % Normal 11.7-15.2 [facility] Comment on above: Performed By: #### L AB320 ####[facility] [id number] [place] [address] [facility] [place] [id number] [address], [place] [phone]#### [id number] ####[facility] [id number] [place] [address] [facility] Erythrocytes (RBC) 5.42 10*6/uL Normal 4.30-5.86 [facility] Comment on above: Performed By: #### L AB320 ####[facility] [id number] [place] [address] [facility] [place] [id number] [address]reek[place] [address]#### [id number] ####[facility] [id number] [place] [address] [facility] Hematocrit (HCT) 45.8 % Normal 39.0-51.5 [facility] Comment on above: Performed By: #### L [id number] ####[facility] [id number] [place] [address] [facility] AND [place] [id number], [place] [phone]#### [id number] ####[facility] [id number] [place] [address] [facility] Hemoglobin mass conc (Bld) 15.3 g/dL Normal 13.1-17.6 [facility] Comment on above: Performed By: #### L [id number] ####[facility] [id number] [place] [address] [facility] AND [place] [address], [place] [phone]#### [id number] ####[facility] [id number] [place] [address] [facility] Lymphocytes 1.2 10*3/uL Normal 0.8-3.6 [facility] Comment on above: Performed By: #### L [id number] ####[facility] [id number] [place] [address] [place] [facility], [address]#### [id number] ####[facility] [id number] [place] [address] [facility] Lymphocytes 13.9 10*3/uL Normal [facility] Comment on above: Performed By: #### L [id number] ####[facility] [id number] [place] [address] [facility] [facility], [place] [phone]#### [id number] ####[facility] [id number] [place] [address] [place] MCH 28.3 pg Abnormal 28.4-33.4 [facility] Comment on above: Performed By: #### L [id number] ####[facility] [id number] [place] [address] [facility], [place] [phone]#### [id number] ####[facility] [id number] [place] [address] [facility] MCHC mass conc (RBC) 33.5 g/dL Normal 31.1-37.0 [facility] Comment on above: Performed By: #### L [id number] ####[facility] [id number] [place] [address] [facility], [place] [address]#### [id number] ####[facility] [place] [id number] [place] [address] [place] MCV 84.5 fL Abnormal 85.0-99.0 [facility] Comment on above: Performed By: #### L [id number] ####[facility] [id number] [place] [address] [place] [facility] [place] [address], [place] [address]#### [id number] ####[facility] [id number] [place] [address] [place] Monocytes 6.2 10*3/uL Normal [facility] Comment on above: Performed By: #### L [id number] ####[facility] [id number] [place] [address] [place] AND [place] [address], [place] [address]#### [id number] ####[facility] [id number] [place] [address] [place] Monocytes 0.5 10*3/uL Normal 0.3-0.9 [facility] Comment on above: Performed By: #### L [id number] ####[facility] [id number] [place] [address] [place] [facility] [place] [address], [place] [phone]#### [id number] ####[facility] [place] [id number] [place] [address] [place] Neutrophils 6.8 10*3/uL Normal 2.0-7.3 [facility] Comment on above: Performed By: #### L [id number] ####[facility] [id number] [place] [address] [facility] AND [place] [address], [place] [phone]#### [id number] ####[facility] [id number] [place] [address] [facility] Neutrophils 76.2 10*3/uL Normal [facility] Comment on above: Performed By: #### L [id number] ####[facility] [id number] [place] [address] [facility] AND [place] [address], [place] [phone]#### [id number] ####[facility] [id number] [place] [address] [facility] Platelets 197 10*3/uL Normal 154-393 [facility] Comment on above: Performed By: #### L [id number] ####[facility] [id number] [place] [address] [facility] AND [place] [address], [place] [phone]#### [id number] ####[facility] [id number] [place] [address] [place] WBC (Leukocytes) 8.8 10*3/uL Normal 4.0-10.5 [facility] Comment on above: Performed By: #### L [id number] ####[facility] [id number] [place] [address] [place] AND [facility] [id number] [place], [place] [phone]#### [id number] ####[facility] CLIA [id number] [place] [address] [facility] CT-HEAD W/O CONTRASTon 09-07 CT-HEAD W/O CONTRAST CT-HEAD W/O CONTRAS T DATE OF EXAM: 09/07/2016 8:07 AMCLINICAL INDICATION: CVAPATIENT INFORMATION: History: Left arm tingling and numbness that started this morning, right yarsani pain with activity. Patient had a stroke [...] by: Titus Kurtz MD, 09/07/2016 8:13 AM [facility] Consultson 09-07-2016 Consults Encounter Department : [facility] SURG WESTConsults by Franky Villalobos MD at 09/07/2016 2:32 PMAuthor: ANDRESSA Henryervice: CardiologyAuthor Type: PhysicianFiled: 09/07/2016 4:44 PMNote Time: 09/07/2016 2:32 PMNote Type: ConsultsStatus: SignedEditor: Franky Villalobos MD (Physician)Related Notes:Original Note by Monet Wallace PA-C (Physician [place]) filed at 09/07/2016 3:56 PM Consult Orders: 1. IP Consult to Cardiology [[id number]] ordered by Devyn Bocanegra DO at 09/07/16 1404Cardiology Inpatient ConsultName: Janice Kerr/Time of Admission: 09/07/2016 7:48 [facility] [id number] Provider: Ivan Russell/Bed: R3306/D7329SMWG: 1945 Age: 71 y.o.Assessment:Acute RPU-DKP-zqcoorxs right side acute strokesA. Hx of CVA right parieto-occipital lobe 11/26 has been on Plavix, ASACarotid stenosis bilateral ICA 1-49% stenosis CAD s/p [place] 2014 with stent m6-TkdnwxdzVYJNIR-ri simvastatinHypertriglyceride 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 Evangel[facility]:HR and BP stable. Have not seen arrhythmia [...] November 2015. 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 09/07/2016 8:26 AMORDERING PROVIDER:JAMESON [...] EPORTSinus rhythmPreliminary?REPORTPrel iminary?Nonspecific intraventricular conduction delay?Interpreting PhysPreliminary?Study Date/Xjuv3920-03-90 08:32:39ECHO:4/16Summary:?1. Normal observed left ventricular ejection fraction of 60%.?2. Mild left ventricular diastolic dysfunction.?3. Mild concentric left ventricular hypertrophy.?4. Aortic root dilatation.?5. The aortic valve is calcified with no significant stenosis.Electronically signed by; Monet Wallace PA-C 09/07/2016 [facility] Consults Encounter Department : [facility] SURG WESTConsults by Devyn Bocanegra DO at 09/07/2016 9:47 AMAuthor: Marianne Mehtarvice: NeurologyAuthor Type: PhysicianFiled: 09/07/2016 11:02 AMNote Time: 09/07/2016 9:47 AMNote Type: ConsultsStatus: SignedEditor: Devyn Bocanegra DO (Physician) Consult Orders: 1. IP Consult to Neurology [[id number]] ordered by Jailene Flores MD at 09/07/16 0924[facility]rological Services [facility] NoteS[facility]ENTERPatient Name:Janice Shultz : 1945Subjective:CC:71 y.o. R - handed male presenting to [facility] with left arm numbness andtingling [...] supple, no meningeal signs; Fundoscopic: nopapilledemaHeart: RRR, N4V8Tquhu: CTABAbd: soft/NT/ND, +BSExt: no edema, no calf [...] Tremors--none Rapidly alternating movements: no dysdiadochokinesia b/l Ilje-wt-Fycu: no dysmetria b/l Jgifjw-om-Puky: no dysmetria b/lGait and stance: Gait: deferredLABS:Recent [...] contact us.Devyn Bocanegra DO, 09/07/2016 9:48 AM Normal [facility] ED Provider Noteson 09-07-19 ED Provider Notes Encounter Department : [facility] EMER[facility]ENCY DEPARTMENTED Provider Notes by Jameson Sheridan MD at 09/07/2016 7:48 AMAuthor: ANDRESSA Wheelerervice: (none)Author Type: ED PhysicianFiled: 09/07/2016 9:17 AMNote Time: 09/07/2016 7:48 AMNote Type: ED Provider NotesStatus: AddendumEditor: Jameson Sheridan MD (ED Physician)Related Notes:Original Note by Jameson Sheridan MD (ED Physician) filed at 09/07/2016 9:17 AMCHIEF COMPLAINTChief ComplaintPatient presents with -NumbnessHPPietro Shultz is a 71 y.o. male who presents left arm numbness and tingling. Patient went to bedlast night at 10 PM. He woke up this morning with a symptoms. He denies any weakness in his arm.He has had prior [place] and history of hypertension. Patient denies any [...] take Zocor without problems,PHYSICAL EXAM:VITAL SIGNS:ED Triage PcirxvOO03/26/17 9591832/89 bzUeAqbd38/26/17 664492.3 ?F (36.8 ?C)Heart Rate09/07/16 324682Xqxb21/26/17 412327HlU368/26/17 097167 %Jhbdmy36/26/17 8173305 lb (86.183 kg)Gee Coma Scale Score09/07/16 468637IKG (Calculated)09/07/16 187550.6Constitutional: mild acute distress, Non-toxic appearanceHENT: Normocephalic, Atraumatic, [...] 3,NIH Stroke ScaleInterval: BaselinePerson Administering Scale: Jameson Nikko Bronx[facility] Health SystemfroylanSCI-Waymart Forensic Treatment Centerter stroke scale items in the order listed. [...] make aspecial effort).1a Level of consciousness:0=alert; keenly wqjgahgqbi0p.LOC questions: 0=Performs both tasks degpekjsd4y.LOC commands:0=Performs both tasks correctly2. Best Gaze:0=normal3. Visual:0=No visual loss4.Facial Palsy:0=Normal symmetric xxqtlaah2h. Motor left arm:0=No drift, limb holds 90 (or 45) degrees for full 10 lekwevj1n. Motor right arm:0=No drift, limb holds 90 (or 45) degrees for full 10 pufgjfr9o.motor left le=No drift, limb holds 90 (or 45) degrees for full 10 bdsxire8i Motor right le=No drift, limb holds 90 (or 45) degrees for full 10 seconds7.Limb Ataxia:0=Absent8. Sensory:0=Normal; no sensory loss9.Best Language: 0=No aphasia, bhuqjt85.Dysarthria:0=Normal 11.Extinction and Inattention:0=No lioowvszjnq88.Distal motor function:0=NormalTotal: 0Skin: Warm, No rash, no [...] 8:13 AMXR-Chest PA AND LATNarrativeEXAM:XR-CHEST PA AND LATACCESSION:[id number] TE OF SERVICE: 09/07/2016 8:26 AMORDERING PROVIDER:JAMESON [...] - Abnormal; Notable for the following:MCV84.5 (*)85.0-99.0 dvMdrykYUH00.3 (*)28.4-33.4 pgFinalAll other components within normal limitsBASIC METABOLIC PANEL - Abnormal; Notable for the following:Vmtcfoi808 (*)74-106 mg/dLFinalAll other components within normal limitsGLUCOSE POC RESULTS - Abnormal; Notable for the following:POC Icmybra498 (*)74-106 mg/dLFinalAll other components within normal limitsNarrative:Point [...] lb(86.183 kg) BMI 26.51 kg/m2 SpO2 99%FINAL IMPRESSION:MND-7-UVRNU-10-CM 1.Left arm ihoglyqq032.0R20.0Electronic allysigned by: Jameson Sheridan, 09/07/2016Jameson Sheridan MD09/07/16916Jameson Sheridan MD09/07/16916 [facility] EKG STANDARD 12 LEADon 09-07 Pulse (Heart Rate) RR Interval= 845 msP R Interval= 167 msQRSD Interval= 118 msQT Interval= 383 msQTc Interval= 417 msHeart Rate= 71 msP [place]= 47 degQRS [place]= -31 degT Wave [place]= 3 degI: 40 [place]= -47 degT: 40 [place]= -40 degST [place]= 61 degSinus rhythm Left axis deviation Electronically Signed by: Alberto Newman) 08-Sep-2016 07:49:38 Date and Time of Study: 2016-09-07 08:32:39 Normal [facility] HEMOGLOBIN A1Con 09-07-2016 Glucose mass conc 131 mg/dL Abnormal 68-126 [facility] Comment on above: Performed By: #### L AB320 ####[facility] CLIA [id number] [place] [address], [address] AND [facility]creek[place] [phone]#### [id number] ####[facility] [id number] [place] [address], [address] Hemoglobin A1c/Hemoglobin.total mass fraction (Bld) 6.2 % Abnormal 4.0-6.0 [facility] Comment on above: Performed By: #### L AB320 ####[facility] [id number] [place] [address], [address] AND [place] [address]vd[place]avercre[place] [phone]#### [id number] ####[facility] [id number] [place] [address], [address] Hemoglobin A1c/Hemoglobin.total mass fraction (Bld) Normal [facility] Comment on above: Result Comment: Ther apeutic goals for glycemic control:-Goal of therapy :< 7.0% HjD2f-Bxlxdj suggested: >8.0% HbA1c Performed By: #### L AB320 ####[facility] [id number] [place], [address] [phone]#### [id number] ####[facility] [id number] [place] [address] [facility] History and Physicalon 09-07 History and Physical Encounter Departmen t: [facility] MED SURG WESTHANDP by Jailene Flores MD at 09/07/2016 9:30 AMAuthor: ANDRESSA Russellervice: Internal MedicineAuthor Type: PhysicianFiled: 09/07/2016 5:17 PMNote Time: 09/07/2016 9:30 AMNote Type: HANDPStatus: SignedEditor: Jailene Flores MD (Physician)History and Physical Patient Name: Janice Estrada: 1945MRN#: [id number] Room / Bed : ED 07/24 Facitily : [facility] Date of Service: 09/07/2016CSN: [id number] Admit Date: 09/07/2016 7:48 AM Attending Physician: [...] but would use IV Hydralazine 10 mg C7fmKSW for SBP > 160For further risk stratification, [...] no subcutaneous nodule palpatedPertinent Data:Last BMP Results:Recent NnkcAhi63/26/17 7739GL545U7.3VU390KS897ZPG99 CREATININE1.89OAD357*CALCIUM 9.2No results found for this or any previous visit.Last CBC w diff Results:Recent FnvoBne92/26/17 8013HWY6.8GAACNLVJJY23.3HCT4 5.7MAP928XFW7.89HXLS72.5MCH2 8.3*RDW11.4LUOBGVEGQIP95.2MO NOCYTES6.2Last Liver Function Results:No results for input(s): [...] @ 71 bpmThis note was created using WineMeNow Speaking dictation softwareJailene Flores MD09/07/2016 @ 9:30 AM Normal [facility] LDL CHOLESTEROL, DIRECTon LDL CHOLESTEROL DIRECT 100 mg/dl Normal 0-100 [facility] Comment on above: Performed By: #### L AB320 ####[facility] CLIA [id number] [place] [address] [facility] AND [facility], [phone]#### [id number] ####[facility] [id number] [place] [address] [place] LDL CHOLESTEROL, DIRECT Normal [facility] Comment on above: Result Comment: ATP III Classification of LDL, Total and HDL Cholesterol (mg/dl)LDL Cholesterol: <100 Optimal 100-129 Near optimal/above optimal 130-159 Borderline high 160-189 High =190 Very high Performed By: #### L AB320 ####[facility] CLIA [id number] [place] [address] [facility] AND [facility], [phone]#### [id number] ####[facility] [id number] [place] [address] [place] LIPID PANELon 09-07-2016 Cholesterol 191 mg/dL Normal <=200 [facility] Comment on above: Performed By: #### L AB320 ####[facility] [id number] [place] [address] [facility] AND [facility], [place] [phone]#### [id number] ####[facility] [id number] [place] [address] [facility] Cholesterol 36 mg/dL Abnormal 40-60 [facility] Comment on above: Performed By: #### L AB320 ####[facility] [id number] [place] [address] [facility] AND [place] [address] [address]#### [id number] ####[facility] [id number] [place], [address] LDL Cholesterol Normal 0-99 [facility] Comment on above: Result Comment: LDL calculation is invalid because the triglyceride level is equal to or greater than 400 mg/dl. Performed By: #### L AB320 ####[facility] [id number] [place], [facility]31 [facility] AND [place] [address] [address]avercre[place] [address]#### [id number] ####[facility] [id number] [place]ERMCLAREN [place], [address] LIPID PANEL Normal [facility] Comment on above: Result Comment: ATP III Classification of LDL, Total and HDL Cholesterol (mg/dL)LDL Cholesterol: <100 Optimal 100-129 Near optimal/above optimal 130-159 Borderline high 160-189 High >=190 Very highTotal Cholesterol: <200 Desirable 200-239 Borderline high >=240 HighHDL Cholesterol: <40 Low >=60 High Performed By: #### L AB320 ####[facility] [id number] [place], [facility]31 [facility] AND [place] [address], [place] [address]#### [id number] ####[facility] [id number] [place], [address] Triglyceride 413 mg/dL Abnormal 0-149 [facility] Comment on above: Performed By: #### L AB320 ####[facility] [id number] [place] [address] [facility] AND [facility], [place] [address]#### [id number] ####[facility] [id number] [place], [place] [address] VLDL CHOLESTEROL 83 mg/dL Abnormal 0-40 [facility] Comment on above: Performed By: #### L AB320 ####[facility] [id number] [place], [facility]31 [facility] AND [facility] [address]#### [id number] ####[facility] [id number] [place] [address] [facility] MAGNESIUMon 09-07-2016 Magnesium 1.7 mg/dL Normal 1.5-2.3 [facility] Comment on above: Performed By: #### L AB320 ####[facility] [id number] [place], [address] AND [facility], [place] [address]#### [id number] ####[facility] [id number] [address] [address], [address] MRI-HEAD WO CONTRASTon 09-07 MRI-HEAD WO [...] report was called to Dr. Dalila WANG [facility] IR [email or web address].This dictation was created with voice recognition software. While attempts have been made to review the dictation as it is transcribed, on occasion the spoken word can be misinterpreted by the technology leading to omissions or inappropriate words, phrases or sentences.Electronically Signed by: Janice Mayorga MD, 09/07/2016 1:50 PM Normal [facility] PARTIAL THROMBOPLASTon 09-07 PARTIAL THROMBOPLASTIN TIME MECHANICAL 41.2 Seconds Abnormal 27.0-39.0 [facility] Comment on above: Performed By: #### L AB320 ####[facility] [id number] [place] [address] [facility]avercre[place], [place] [phone]#### [id number] ####[facility] CLIA [id number] [place] [address] [facility] PROTIME-INRon 09-07-2016 INR Coag RelTime (Bld) Normal [facility] Comment on above: Result Comment: Cond ition and INR Therapeutic Range:Deep venous thrombosis 2.0-3.0Pulmonary embolism 2.0-3.0Acute myocardial infarction 2.0-3.0Atrial fibrillation 2.0-3.0Antiphospholipid syndrome (no other risk factors) 2.0-3.0Antiphospholipid syndrome with recurrent thromboembolism 2.5-3.0Bioprosthetic (tissue) valve 2.0-3.0Mechanical prosthetic valves 2.0-3.0 or 2.5-3.5 depending on valve type and location Performed By: #### L AB320 ####[facility] CLIA [id number] [place] [address] [facility] AND [facility], [phone]#### [id number] ####[facility] CLIA [id number] [place] [address] [facility] INR Coag RelTime (PPP) 1.1 {INR} Normal 0.8-1.1 [facility] Comment on above: Performed By: #### L AB320 ####[facility] CLIA [id number] [place] [address] [facility] AND [facility], [place] [phone]#### [id number] ####[facility] CLIA [id number] [place] [address] [facility] Prothrombin time (PT) Coag time (PPP) 11.8 s Normal 9.3-12.3 [facility] Comment on above: Performed By: #### L AB320 ####[facility] CLIA [id number] [place] [address] [facility] AND [facility], [phone]#### [id number] ####[facility] CLIA [id number] [place] [address] [facility] INR Coag RelTime (Bld) Normal [facility] Comment on above: Result Comment: Cond ition and INR Therapeutic Range:Deep venous thrombosis 2.0-3.0Pulmonary embolism 2.0-3.0Acute myocardial infarction 2.0-3.0Atrial fibrillation 2.0-3.0Antiphospholipid syndrome (no other risk factors) 2.0-3.0Antiphospholipid syndrome with recurrent thromboembolism 2.5-3.0Bioprosthetic (tissue) valve 2.0-3.0Mechanical prosthetic valves 2.0-3.0 or 2.5-3.5 depending on valve type and location Performed By: #### L AB320 ####[facility] [id number] [place], [address] AND [place] [address] [phone]#### [id number] ####[facility] [id number] [place], [address] INR Coag RelTime (PPP) 1.0 {INR} Normal 0.8-1.1 [facility] Comment on above: Performed By: #### L [id number] ####[facility] [id number] [address], [address] AND [place] [id number] [address]#### [id number] ####[facility] [id number] [address], [facility]31 [facility] Prothrombin time (PT) Coag time (PPP) 11.3 s Normal 9.3-12.3 [facility] Comment on above: Performed By: #### L [id number] ####[facility] [id number] [address], [address] [place] [id number] [phone]#### [id number] ####[facility] [id number] [address] Progress Noteson 09-07-2016 Progress Notes Encounter Department : [facility] MED SURG WESTProgress Notes by Vickie Sanchez RN at 09/07/2016 2:04 PMAuthor: ANNE Aquinoervice: (none)Author Type: Registered NurseFiled: 09/07/2016 2:06 PMNote Time: 09/07/2016 2:04 PMNote Type: Progress NotesStatus: SignedEditor: Vickie Sanchez, RN (Registered Nurse)Radiologist called regarding MRI report stating Multiple Right side acute stroke . DO Herminio called and she stated May be embolic, consult cardiology . Dr. Cayla gonzalez.Awaiting a return call.Vickie Sanchez Normal [facility] TROPONIN Ion 09-07-2016 Troponin I.cardiac mass conc ng/mL Normal 0.000-0.04 5 [facility] Comment on above: Performed By: #### L AB320 ####[facility] [id number] [address] AND [place] [address]#### [id number] ####[facility] [id number] [address] Troponin I.cardiac mass conc Normal [facility] Comment on above: Result Comment: Trop onin I 0.045-0.600 is abnormal but not clinically relevant. Please correlate with other clinical findings. Troponin I >0.600 is clinically relevant in accordance with WHO criteria. Performed By: #### L AB320 ####[facility] CLIA [id number] [facility], [place] [id number] [place] [phone]#### [id number] ####[facility] [id number] [place] [address] [place] TSHon 09-07-2016 Thyroid stimulating hormone (TSH) 0.705 uIU/mL Normal 0.358-3.74 0 [facility] Comment on above: Performed By: #### L AB320 ####[facility] [id number] [place] [address] [facility] AND [place] [id number], [place] [phone]#### [id number] ####[facility] [id number] [place] [address] [facility] URINALYSIS MICROSCOPIC ONLYo n 09-07-2016 AMORPHOUS CRYSTALS 2+ /lpf Abnormal Negative [facility] Comment on above: Performed By: #### L AB320 ####[facility] [id number] [place] [address] [facility], [phone]#### [id number] ####[facility] [id number] [place] [address] [facility] URINE MUCOUS 2+ /lpf Abnormal Negative [facility] Comment on above: Performed By: #### L AB320 ####[facility] [id number] [place] [address] [facility], [place] [phone]#### [id number] ####[facility] [id number] [place] [address] [facility] URINE WHITE BLOOD CELLS 0-3 Normal 0-3 [facility] Comment on above: Performed By: #### L AB320 ####[facility] [id number] [place] [address] [place] [facility], [place] [phone]#### [id number] ####[facility] CLIA [id number] [place] [address] [place] Urine, bacteria in sediment Trace Abnormal Negative [facility] Comment on above: Performed By: #### L AB320 ####[facility] [id number] [place] [address] [place] [facility], [place] [phone]#### [id number] ####[facility] [id number] [place] [address] [place] Urine, epithelial cells in sediment 0-3 Normal 0-3 [facility] Comment on above: Performed By: #### L AB320 ####[facility] [id number] [place] [address] [place] [facility], [place] [phone]#### [id number] ####[facility] CLIA [id number] [place] [address] [place] URINALYSIS W/REFLEX MICROSCO PYon 09-07-2016 BILIRUBIN, UA Negative Normal Negative [facility] Comment on above: Performed By: #### L AB320 ####[facility] CLIA [id number] [place] [address] [place] [facility], [place] [phone]#### [id number] ####[facility] CLIA [id number] [place] [address] [place] BLOOD, UA Negative Normal Negative [facility] Comment on above: Performed By: #### L AB320 ####[facility] [id number] [place] [address] [place] [facility], [place] [phone]#### [id number] ####[facility] [id number] [place] [address] [place] GLUCOSE, UA Negative Normal Negative [facility] Comment on above: Performed By: #### L AB320 ####[facility] [id number] [place] [address] [place] [facility], [phone]#### [id number] ####[facility] [place] [id number] [place] [address] [place] KETONES, UA Negative Normal Negative [facility] Comment on above: Performed By: #### L AB320 ####[facility] [id number] [place] [address] [place] AND [place] [address], [phone]#### [id number] ####[facility] [id number] [place] [address] [place] LEUKOCYTES, UA Negative Normal Negative [facility] Comment on above: Performed By: #### L AB320 ####[facility] [id number] [place] [address] [place] [facility], [place] [phone]#### [id number] ####[facility] [id number] [place] [address] [place] PH, UA 7.5 Normal 5.0-8.0 [facility] Comment on above: Performed By: #### L AB320 ####[facility] [id number] [place] [address] [place] [facility], [phone]#### [id number] ####[facility] [id number] [place] [address] [place] PROTEIN, UA Negative Normal Negative [facility] Comment on above: Performed By: #### L AB320 ####[facility] [id number] [place] [address] [place] AND [place] [address], [phone]#### [id number] ####[facility] [id number] [place] [address] [place] SPECIFIC GRAVITY, UA 1.020 Normal 1.001-1 .03 5 [facility] Comment on above: Performed By: #### L AB320 ####[facility] [id number] [place] [address] [place] [facility], [phone]#### [id number] ####[facility] [id number] [place] [address] [place] Urine, appearance Slightly Cloudy Abnormal Clear [facility] Comment on above: Performed By: #### L AB320 ####[facility] [id number] [place] [address] [place] [facility], [place] [phone]#### [id number] ####[facility] [id number] [place], [facility]31 [facility] Urine, color Yellow Normal Yellow [facility] Comment on above: Performed By: #### L AB320 ####[facility] [id number] [place], [address] AND [place] [address], [place] [address]#### [id number] ####[facility] [id number] [place], [address] Urine, nitrite presence Negative Normal Negative [facility] Comment on above: Performed By: #### L AB320 ####[facility] [id number] [place], [address] AND [place] [address], [place] [address]#### [id number] ####[facility] [id number] [place], [address] UROBILINOGEN, UA 0.2 EU/dL Normal 0.2-1.0 [facility] Comment on above: Performed By: #### L AB320 ####[facility] [id number] [place], [address] [place] [address], [place] [address]#### [id number] ####[facility] [id number] [place], [address] VAS-CAROTID DOP BILAT 73981q n 09-07-2016 VAS-CAROTID DOP BILAT 71847 A result will not be generated for this exam.VAS-CAROTID DOP BILAT 55894Txlxri for Exam: tia/cva. REASON FOR EXAM: tia/cvaDEMOGRAPHICS: [...] by: Bharat Jones MD, 09/07/2016 1:25 PM [facility] XR-CHEST PA AND LATon 2016 XR-CHEST PA AND LAT EXAM: XR-CHEST PA & LATACCESSION: [id number] OF SERVICE: 09/07/2016 8:26 AMORDERING PROVIDER:JAMESON SHERIDAN [...] by: Kay Lew DO, 09/07/2016 8:29 AM [facility] Progress Noteson 11-29-2015 Progress Notes Progress Notes by STACI De Los Santos at 11/29/2015 9:21 AMAuthor: ESTELLE Heathervice: (none)Author Type: Social WorkerFiled: 11/29/2015 9:24 AMNote Time: 11/29/2015 9:21 AMNote Type: Progress NotesStatus: SignedEditor: STACI Heath (Bond Underwriter)SOCIAL WORK DISCHARGE SUMMARY NOTEName:Janice Shultz Date:11/29/2015MR#:[id number] B:[id number] #:R3323/[id number]/Sex:70 y.o. maleAdmit Date:11/25/2015Admitting:Same er Maria Teresa, MDServices: Discharge summaryAgency: None at this time.Patient Information patient presented with cerebral vascular accidentTransportation [facility] paperworkDischarge Plan patient to return home with no post acute needsAdditional Narrative: [facility] Discharge Summarieson 2015 Discharge Summaries Discharge Summaries by Rahul Phillips MD at 11/26/2015 3:05 PMAuthor: ANDRESSA Bachervice: Internal MedicineAuthor Type: PhysicianFiled: 11/26/2015 6:42 PMNote Time: 11/26/2015 3:05 PMNote Type: Discharge SummariesStatus: SignedEditor: Rahul Phillips MD (Physician)Name: Janice Pintote/Time of Admission: 11/25/2015 5:54 AMCSN: [id number] Provider: ANNI Bachoom/Bed: [facility]/K2826VGGP: 1945 Age: 70 y.o.DISCHARGE SUMMARYDate of Admission: 11/25/2015Date of Discharge: 11/26/2015[facility] Left arm weakness, slurred speech, dizzinessConsultants: Dr. Mehta, neurologyProcedures: noneSignificant Tests during this Admission:Significant LabsRecent FyuvPio71/ 882126/ 3356YZB3.07.9OEIFRPRRSX91.41 5.6HCT45.346.9YWB737139MGG6. 275.87XZVX11.934.0MCH29.129. 3RDW13.113.7OCMUULFBHVI74 --IXKTUDRXF78 --Recent DfayJma44 1343GD493Y9.4ER441QQ933PBL20 CREATININE1.17EFC496*CALCIUM 8.6Radiological findings:Ct-angio Head W And/or Wo Con W/post Img4 IMPRESSION: 1. Fibrocalcific atherosclerotic plaque results in [...] large territory infarct. Dictated by: Rhona Bhatia(Resident) Lv, Carlos Ibanez DO, have reviewed the images [...] with the above interpretation. ElectronicallySigned by: Carlos DO Marcelle, 11/25/2015 6:03 AMVas-carotid Dop Bilat 072596/ IMPRESSION: 1-49% stenosis bilateral internal carotid arteries. [...] air entry +Heart:S1, S2+Abdomen soft, non-tenderExtremities no edema/cyanosis.MANAGER INSIDE: AAO X3, No focal deficits.Discharge Diagnoses:Acute CVAHypertensionHyperlipidemi aHistory of IN in the pastDischarge Instructions and Follow upActivity: [...] [facility], [address] [phone] [facility] Progress Noteson 11-26-2015 Progress Notes Progress Notes by Ra brando Hall OT at 11/26/2015 11:17 AMAuthor: SUNNY Stollervice: MAGDI TreatmentAuthor Type: Occupational TherapistFiled: 11/26/2015 3:01 PMNote Time: 11/26/2015 11:17 AMNote Type: Progress NotesStatus: SignedEditor: Georgia Hall OT (Occupational Therapist)Occupational Therapy TreatmentAdmit date: 11/25/2015 Today's Date: 11/26/2015Patient Name/MR#: Janice Shultz [id number] Room: [address]HOounctzlo Diagnosis: CVA (cerebral vascular accident) [I63.9]Admitting Provider:Jailene [...] here visiting family, as pt is from [facility], when this occurred; pt andwife share [...] to LearningNoneCognitionHearing VisionMotivationReadinessEas lupe DistractedJudgmentInsightAwa renessPre-MorbidMental StatusLanguage barrierNon-North Korean SpeakingCommunicationBarrier Observations/Vitals: Pt supine in bed with [...] strength in LUE this datePt worked on [facility] activities this date; 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 bulk picker small objects fromtable top with increased [...] at waistToiletingDenied needADL Comments:MobilityIndMod-ISup CG/MINModMaxTotalNot Addressed this krwmpowBpatjzyCKsw-MhrRShc-U upX pt up on chair at end [...] given to pt with numerous exercises trialedBalance:SittingStatic -TQiccmvk-UMxjwnhzyQaptlz-ZR ynamic-SPatient Summary:The patient continues to exhibit the [...] PTRehab Dx same as evaluation.Rehab Potential:ExcellentGoodFairP oorGuardedComments:Patient/F jarredy GoalOngoingNot MetMetUnable to StateOT Rehab Goals (all [...] tasks within his environment: progressingDischarge Recommendation:HomeHome w/ Lazbwp31Cy Supervision/AssistHome Care TherapyInpt Rehab UnitSNF/ECFOP OTComments:D/C Equipment NeedsNoneShower -jr-4Dck [facility] BedStd WalkerFWWRollator / 4WWStd CaneQuad CaneW/C*Patient equipment [...] Treatment Time: 38Timed Code Minutes : 38 [facility] Progress Notes Progress Notes by STACI De Los Santos at 11/26/2015 2:51 PMAuthor: ESTELLE Heathervice: (none)Author Type: Social WorkerFiled: 11/26/2015 2:54 PMNote Time: 11/26/2015 2:51 PMNote Type: Progress NotesStatus: SignedEditor: STACI Heath (Bond Underwriter)Social Service Ongoing CareServices: Discharge planningAgency: None at this time.Comments: reviewed chart, processed patient information in IDT meeting. Patient to return home withno post acute needs at this time. Patient to return home to [place], [place]. Care coordination tocontinue following this patient.STACI Newell 8-69-11Qdjayiowz plan: home with no post acute needs.Barriers: none at this time. Normal [facility] 2D COMPLETE ECHO (COLORFLOW, DOPPLER)on 11-25-2015 2D COMPLETE ECHO (COLORFLOW,DOPPLER) [address] [address] PH: [phone] ECHOCARDIOGRAM REPORT Pt. Name: JANICE SHULTZ : 1945 70 Date: 11/25/2015/3:39:53 PM years MR# [id number] Sex: M Blood Pressure: 153/90 Ht: 71 in BSA: 2.04 Location: 3323 Wt: 184 lb Technologist: Referring Physician: [id number] MARIA TERESA DENT Indications: Abnormal ECG Study [...] Pk Grad RA Pressure 5 mmHg RVSP [id number] . Pulmonary Artery: MR PISA Radius MR Alias Velocity MR VMax MR EROA TV Inflow E max TV Mn Grad PV PV Vmax PV Pk Grad PV Mn Grad COMPARISON TO PREVIOUS EXAMINATION: Final Normal [facility] BASIC METABOLIC PANELon 04-1 Anion gap 6 mmol/L Abnormal 7-16 [facility] Comment on above: Performed By: #### L AB15 ####[facility] [id number] [place] [address] [place]#### [id number] ####[facility] [id number] [place] [address] [place] AND [facility], [place] [phone] BUN (urea nitrogen) 13 mg/dL Normal 7-18 [facility] Comment on above: Performed By: #### L AB15 ####[facility] [id number] [place] [address] [place]#### [id number] ####[facility] [place] [id number] [place] [address] [place] AND [facility], [place] [phone] Calcium 8.6 mg/dL Normal 8.5-10.1 [facility] Comment on above: Performed By: #### L AB15 ####[facility] [id number] [place] [address] [place]#### [id number] ####[facility] [id number] [place] [address] [place] [facility], [place] [phone] Chloride 105 mmol/L Normal 98-107 [facility] Comment on above: Performed By: #### L AB15 ####[facility] [id number] [place] [address] [place]#### [id number] ####[facility] [id number] [place] [address] [facility] AND [place] [phone], [place] [address] CO2 31 mmol/L Normal 21-32 [facility] Comment on above: Performed By: #### L AB15 ####[facility] [id number] [place] [address] [place]#### [id number] ####[facility] [id number] [place], [facility]31 [facility] AND [place] [phone] [address]vdBeavercre[place] [address] Creatinine 1.12 mg/dL Normal 0.60-1.30 [facility] Comment on above: Performed By: #### L AB15 ####[facility] [id number] [place], [facility]31 [place]#### [id number] ####[facility] [id number] [place], [facility]31 [facility] AND [place] [phone] [address]cre[place] [address] eGFR (black) mL/min/{1.73_m2} Normal >60 [facility] Comment on above: Result Comment: GFR is estimated using creatinine, age, gender, and race. Patient's values should be interpreted as a trend. For additional information: [email or web address] Performed By: #### L AB15 ####[facility] [id number] [place], [facility]31 [place]#### [id number] ####[facility] [id number] [place], [facility]31 [facility] AND [place] [address]90[address], [place] [phone] eGFR (non-black) mL/min/{1.73_m2} Normal >60 [facility] Comment on above: Result Comment: GFR is estimated using creatinine, age, gender, and race. Patient's values should be interpreted as a trend. For additional information: [email or web address] Performed By: #### L AB15 ####[facility] CLIA [id number] [place] [address] [place]#### [id number] ####[facility] [id number] [place], [facility]31 [facility] AND [facility], [place] [phone] Glucose mass conc 112 mg/dL Abnormal 74-106 [facility] Comment on above: Performed By: #### L AB15 ####[facility] [id number] [place] [address] [place]#### [id number] ####[facility] [id number] [place], [facility]31 [facility] AND [place] [address]35 [phone] Potassium molar conc 3.8 mmol/L Normal 3.5-5.1 [facility] Comment on above: Performed By: #### L AB15 ####[facility] [id number] [place] [address] [place]#### [id number] ####[facility] [id number] [place], [facility]31 [facility] AND [facility]BeavercreekKaren [place] [phone] Sodium 142 mmol/L Normal 136-145 [facility] Comment on above: Performed By: #### L AB15 ####[facility] [id number] [place] BLVDBEAVERSanitors, [address]#### [id number] ####[facility] [id number] [place] BLAdvanced Marketing & Media GroupBE[address]ORE STREETINDU AND [facility] BlSchoolfyBeavercreStephen [place] [phone] CBC W/DIFFon 11-25-2015 Basophils/100 WBC Auto (Bld) 1 % Normal [facility] Comment on above: Performed By: #### L AB293 ####[facility] [id number] [place] BLVDBEAVERTRIHEALTH BETHESDA NORTH HOSPITALEK, [facility]31 [facility] BSA (Body Surface Area) 0.0 K/uL Normal 0.0-0.1 [facility] Comment on above: Performed By: #### L AB293 ####[facility] [id number] [place], [address] Eosinophils 5 10*3/uL Normal [facility] Comment on above: Performed By: #### L AB293 ####[facility] [id number] [facility] CAMPUSAGON BLAdvanced Marketing & Media GroupBEAVERMCLAREN LAPEER REGION, [address] Eosinophils 0.3 10*3/uL Normal 0.0-0.4 [facility] Comment on above: Performed By: #### L AB293 ####[facility] [id number] [place] BLAdvanced Marketing & Media GroupBEAVERMCLAREN LAPEER REGION, [facility]31 [facility] Erythrocyte distribution width Auto Ratio (RBC) 13.1 % Normal 11.7-15.2 [facility] Comment on above: Performed By: #### L AB293 ####[facility] [id number] [place] [address]ERCRE, [address] Erythrocytes (RBC) 5.27 10*6/uL Normal 4.30-5.86 [facility] Comment on above: Performed By: #### L AB293 ####[facility] [id number] [place], [address] Hematocrit (HCT) 45.3 % Normal 39.0-51.5 [facility] Comment on above: Performed By: #### L AB293 ####[facility] [id number] [place] [address] [facility] Hemoglobin mass conc (Bld) 15.4 g/dL Normal 13.1-17.6 [facility] Comment on above: Performed By: #### L AB293 ####[facility] [id number] [place] [address] [facility] Lymphocytes 1.8 10*3/uL Normal 0.8-3.6 [facility] Comment on above: Performed By: #### L AB293 ####[facility] [id number] [place], [facility]31 [facility] Lymphocytes 30 10*3/uL Normal [facility] Comment on above: Performed By: #### L AB293 ####[facility] [id number] [place], [facility]31 [facility] MCH 29.1 pg Normal 28.4-33.4 [facility] Comment on above: Performed By: #### L AB293 ####[facility] [id number] [place] [address] [facility] MCHC mass conc (RBC) 33.9 g/dL Normal 31.1-37.0 [facility] Comment on above: Performed By: #### L AB293 ####[facility] [id number] [place] [address] [facility] MCV 86.0 fL Normal 85.0-99.0 [facility] Comment on above: Performed By: #### L [id number] ####[facility] [id number] [place] [address] [facility] Monocytes 10 10*3/uL Normal [facility] Comment on above: Performed By: #### L [id number] ####[facility] CLIA [id number] [place] [address], [facility] Monocytes 0.6 10*3/uL Normal 0.3-0.9 [facility] Comment on above: Performed By: #### L [id number] ####[facility] CLIA [id number] [place] [address] Neutrophils 3.2 10*3/uL Normal 2.0-7.3 [facility] Comment on above: Performed By: #### L [id number] ####[facility] [id number] [place] [address], [address] Neutrophils 54 10*3/uL Normal [facility] Comment on above: Performed By: #### L [id number] ####[facility] [id number] [place] [address], [facility]31 [facility] Platelets 177 10*3/uL Normal 154-393 [facility] Comment on above: Performed By: #### L [id number] ####[facility] [id number] [place] [address], [address] WBC (Leukocytes) 6.0 10*3/uL Normal 4.0-10.5 [facility] Comment on above: Performed By: #### L [id number] ####[facility] [id number] [place] [address], [address] CBC W/O DIFFon 11-25-2015 Erythrocyte distribution width Auto Ratio (RBC) 13.1 % Normal 11.7-15.2 [facility] Comment on above: Performed By: #### L [id number] ####[facility] [id number] [place] [address], [address] Erythrocytes (RBC) 5.32 10*6/uL Normal 4.30-5.86 [facility] Comment on above: Performed By: #### L [id number] ####[facility] [id number] [place] [address], [facility]31 [facility] Hematocrit (HCT) 46.0 % Normal 39.0-51.5 [facility] Comment on above: Performed By: #### L [id number] ####[facility] [id number] [place], [facility]31 [facility] Hemoglobin mass conc (Bld) 15.6 g/dL Normal 13.1-17.6 [facility] Comment on above: Performed By: #### L IH5680 ####[facility] [id number] [place], [facility]31 [facility] MCH 29.3 pg Normal 28.4-33.4 [facility] Comment on above: Performed By: #### L [id number] ####[facility] [id number] [facility]VDBE[facility]ERMCLAR[facility], [facility]31 [facility] MCHC mass conc (RBC) 34.0 g/dL Normal 31.1-37.0 [facility] Comment on above: Performed By: #### L [id number] ####[facility] [id number] [facility]MCLAR[facility], [facility]31 [facility] MCV 86.4 fL Normal 85.0-99.0 [facility] Comment on above: Performed By: #### L [id number] ####[facility] [id number] [facility]ENTERVDBEAVERMCLAREN [facility], [facility]31 [facility] Platelets 176 10*3/uL Normal 154-393 [facility] Comment on above: Performed By: #### L [id number] ####[facility] [id number] [facility], [facility]31 [facility] WBC (Leukocytes) 7.4 10*3/uL Normal 4.0-10.5 [facility] Comment on above: Performed By: #### L [id number] ####[facility] CLIA [id number] [place] [address] [facility] CT-ANGIO HEAD W AND/OR WO CO N [...] by: Louis Mead D.O., 11/26/2015 6:28 AM [facility] CT-ANGIO NECK W AND/OR WO [...] by: Louis Mead D.O., 11/26/2015 6:28 AM [facility] CT-HYPERACUTE HEAD WO CON ST [place] 11-25-2015 CT-HYPERACUTE HEAD WO CON STROKE PROCEDURE: [...] by: Carlos Ibanez DO, 11/25/2015 6:06 AM [facility] Consultson 11-25-2015 Consults Consults by Chau anthony MD at 11/25/2015 3:09 PMAuthor: ANDRESSA Chaconervice: NeurologyAuthor Type: PhysicianFiled: 11/25/2015 5:04 PMNote Time: 11/25/2015 3:09 PMNote Type: ConsultsStatus: SignedEditor: Chau Mehta MD (Physician) Consult Orders: 1. IP Consult to Neurology [[id number]] ordered by Jailene Flores MD at 11/25/15 1102Neurointerventional Consult NoteSOUT[facility]ENTERPatient Name:Janice Shultz : 1945Subjective:Reason for consult: Stroke like mfiahvfp10 y.o. -handed male presenting [facility] emergency department around 6 AMtoday [...] mgOralNIGHTLY AT BEDTIMEContinuous Infusions: -0.9 % sodium ptqeihlt429 mL/hr (11/25/15 1107)PRN Meds:.ALPRAZolam, hydrALAZINE, ondansetron OR [...] mmHg (11/25 1127)Temp: 98 ?F (36.7 ?C) (11/24 112)Heart Rate: 79 (11/25 1127)Resp: 18 (11/25 1127)SpO2: 96 % (04/14 1128)FiO2 (%): 28 % (11/24 0832)O2 Flow Rate (L/min): 2 L/min (11/24 0735)Cardiac (WDL): Within Defined Limits (11/24 628)Cardiac Rhythm: Normal sinus rhythm (11/24 628)Gen: AANDO x 4, NAD, cooperativeHEENT: NC/AT, EOMI, PERRL, mmm, no carotid bruits, neck supple, no meningeal signs;Heart: RRR, J1S5Qxvlq: CTABExt: no edema, no calf tenderness b/lPsych: [...] Decreased with the left hand otherwise normal Ashu-ca-Ysuj: no dysmetria b/l. Gjtmat-gn-Sejk: Left upper extremity dysmetria.Gait and stance: Gait: [...] free to contact us.Chau Mehta MD, 11/25/2015 [facility] Consults Consults by Valarie Mendez RD at 11/25/2015 1:48 PMAuthor: ADDY Nicoleervice: NutritionAuthor Type: Registered DietitianFiled: 11/25/2015 1:48 PMNote Time: 11/25/2015 1:48 PMNote Type: ConsultsStatus: SignedEditor: Valarie Mendez RD (Registered Dietitian) Consult Orders: 1. IP Consult To Nutrition Care [[id number]] ordered by Jelena Sommer MD at 11/25/15 [...] Valarie Mendez RD, LD 11/25/2015 1:48 PM [facility] ED Provider Noteson 11-25-19 ED Provider Notes ED Provider Notes by [...] at bedtime.ALLERGIESNo Known AllergiesPHYSICAL EXAMVITAL SIGNS:ED Triage QlekpkKZ82/ 2576379/96 mbRvZmku10/14/16 202688.8 ?F (36.6 ?C)Heart Rate04/ 246212Wbgz37/14/16 138579RwR386/14/16 8505263 %Weight--Gee Coma Scale Score11/25/15 674528JLI (Calculated)--Constitutional : Well developed, Well nourished, No [...] oriented x 3,GCS 15, NIH stroke scale ik1Nvnuckzfjwx: Affect normal, Judgment normal, Mood normal.EKGEKG InterpretationInterpreted by: Kay JeanTime of EKRhythm: normal sinusRate: normalAxis: normalEctopy: noneConduction: normalST Segments: no acute changeT Waves: no acute changeQ Waves: noneClinical Impression: no acute changesComparison: None available at this timeLabs ReviewedBASIC METABOLIC PANEL - Abnormal; Notable for the following:Anion Gap6 (*)7-16 mmol/JNkaqqShjojxw085 (*)74-106 mg/dLFinalAll other components within normal limitsPARTIAL THROMBOPLAST - Abnormal; Notable for the following:PTT42.8 (*)27.0-39.0 SecondsFinalAll other components within normal limitsGLUCOSE POC RESULTS - Abnormal; Notable for the following:POC Mawmuoz919 (*)70-100 mg/dLFinalAll other components within normal limitsNarrative:Point [...] intact.ImpressionNo acute pulmonary process.Dictated by: Rhona Bhatia (Resident)I, [...] the case in depth with the neurologist educational resource coordinator and they concur. Patient hasanelectrolyte abnormalities or signs of infection at this time. Patient was reexamined multipletimes here in the emergency department. Patient seems to be improving slightly. Patient will beadmitted to medical service with neurology consult and further observation and care. Patient andfamily understand and agree with this plan.The patient's scheduled substances prescription history was reviewed using the [employer] database.This patient wasn't found to have a prescription history that was concerning for drug abusediversion or aberrant behavior.FINAL NYVBYRSZEVCUF-2-AGILU-10-CM1 .CVA (cerebral vascular accident)434.91I63.9I have personally provided 30 minutes of critical care time (excluding separately listedprocedures) through obtaining a history, examining the patient, reviewing relevant medical records,discussing care with family and/or other providers, performing multiple reassessments and directingcare.Electronically signed by: Kay Jean, 11/25/2015Kay Jean, DO11/25/15 0703 Normal [facility] History and Physicalon 11-24 History and Physical HANDP by Jailene huber MD at 11/25/2015 10:54 AMAuthor: ANDRESSA Russellervice: Internal MedicineAuthor Type: PhysicianFiled: 11/25/2015 3:16 PMNote Time: 11/25/2015 10:54 AMNote Type: HANDPStatus: AddendumEditor: Jailene Flores MD (Physician)Related Notes:Original Note by Jailene Flores MD (Physician) filed at 11/25/2015 11:01 AMHistory and PhysicalASSESSMENT AND PLAN:1. TIA vs evolving stroke2. HTN3. HL4. Hx of IN in past5. Chest painPLAN:Patient came to hospital [...] at bedtime.ALLERGIESNo Known AllergiesPHYSICAL EXAMVITAL SIGNS:ED Triage XhtswdKB93/ 1367254/96 hfDwYugo82/14/16 007169.8 ?F (36.6 ?C)Heart Rate11/25/15 298001Kehp21/14/16 998608XnM203/14/16 6289099 %Yrtyza42/14/16 6090463 lb (83.462 kg)Atkinson Coma Scale Score11/25/15 081440POM (Calculated)11/25/15 107910.7Gen: NAD, looks appropriate for ageEye: No Discharge,ESTHER, [...] sensory call. Lt. UE weakness 4/5, Weak index editor,Cranial Nerve II-XII grosslyintact and symmetricalPsychs: Appropriate mood [...] Abnormal; Notable for the following:Anion Gap6 (*)7-16 mmol/VWodooFuebbwo271 (*)74-106 mg/dLFinalAll other components within normal limitsPARTIAL THROMBOPLAST - Abnormal; Notable for the following:PTT42.8 (*)27.0-39.0 SecondsFinalAll other components within normal limitsGLUCOSE POC RESULTS - Abnormal; Notable for the following:POC Prmogrg354 (*)70-100 mg/dLFinalAll other components within normal limitsNarrative:Point [...] Ibanez DO, 11/25/2015 6:03 AMVAS-CAROTID DOP BILAT 79456 (Results Pending)I have personally reviewed all imaging and agree with the read(s) as outlined above.Jailene Flores MD11/25/2015 @ 10:54 AM [facility] MRI-HEAD [...] Shon Cerda M.D., 11/25/2015 9:10 AM Normal [facility] PARTIAL THROMBOPLASTon 11-24 PARTIAL THROMBOPLASTIN TIME MECHANICAL 42.8 Seconds Abnormal 27.0-39.0 [facility] Comment on above: Performed By: #### L AB320 ####[facility] [id number] [place] [address] [facility], [place] [phone]#### [id number] ####[facility] CLIA [id number] [place] [address], [address] PROTIME-INRon 11-25-2015 INR Coag RelTime (PPP) 1.0 {INR} Normal 0.9-1.2 [facility] Comment on above: Performed By: #### L AB320 ####[facility] CLIA [id number] [place] [address], [facility]31 [facility], [phone]#### [id number] ####[facility] CLIA [id number] [place] [address] [facility] Prothrombin time (PT) Coag time (PPP) 11.1 s Normal 9.3-12.3 [facility] Comment on above: Performed By: #### L AB320 ####[facility] CLIA [id number] [place] [address], [facility]31 [facility], [phone]#### [id number] ####[facility] CLIA [id number] [place], [address] INR Coag RelTime (Bld) Normal [facility] Comment on above: Result Comment: Cond ition and INR Therapeutic Range:Deep venous thrombosis 2.0-3.0Pulmonary embolism 2.0-3.0Acute myocardial infarction 2.0-3.0Atrial fibrillation 2.0-3.0Antiphospholipid syndrome (no other risk factors) 2.0-3.0Antiphospholipid syndrome with recurrent thromboembolism 2.5-3.0Bioprosthetic (tissue) valve 2.0-3.0Mechanical prosthetic valves 2.0-3.0 or 2.5-3.5 depending on valve type and location Performed By: #### L AB320 ####[facility] [id number] [place] [id number] [facility] AND [address] StreetBeJohn Ville [phone]#### [id number] ####[facility] [id number] [facility] [address] [facility] Progress Noteson 11-25-2015 Progress Notes Progress Notes by JASPER Torrez at 11/25/2015 4:23 PMAuthor: JASPER DoService: ONLINE MARKETING STRATEGIST EvaluationAuthor Type: Speech and LanguagePathologistFiled: 11/25/2015 4:38 PMNote Time: 11/25/2015 4:23 PMNote Type: Progress NotesStatus: AddendumEditor: JASPER Do (Speech and Language Pathologist)Related Notes:Original Note by JASPER Do (Speech and Language Pathologist) filedat 11/25/2015 4:37 PMRehab MedicineSpeech Therapy EvaluationAdmit date: 11/25/2015 Today's Date: 11/25/2015Patient Name/MR#: Janice Shultz [id number]:5' 11 (1.803 m) Weight: 184 lb (83.462 kg)Current Room: [address]NKuouyeewn Diagnosis: CVA (cerebral vascular accident) [I63.9]Admitting Provider:NARCISO [...] here visiting family, as pt is from [facility], when this occurred; pt andwife share [...] restrictedPragmatics: WFL; pt appropriately interacted with this ONLINE MARKETING STRATEGIST, made eye contact, appeared tounderstand body gestures [...] this date.Cognition: WFL; demonstrated appropriate short and mcfp memory recall on all tasksadministered. Demonstrated simple and complex problem solving in 5/5 trials. Demonstratedappropriate reasoning in 3/3 trials, abstract reasoning 3/3 trials, and categorization in 4/4trials.Assessment summary/severity: Patient presents with functional expressive/receptive andcognitive-linguistic skills upon assessment this date. Patient oriented appropriately, able to makewants and needs known. Attention, simple and moderately complex problem solving, immediate and usp recall appropriate on all tasks completed this [...] and patient working towards planned discharge:HomeHome w/ Gxthzm86Oa Supervision/AssistHome Care TherapyInpt Rehab UnitSNF/ECFOP SLPPlan: (as discussed with patient/family and agreed upon)The ONLINE MARKETING STRATEGIST Rehab Plan will consist of, but not limited to the following:AphasiaCog/Linguis ticCommunication/Language TherapyFacial e-stimVideostrobeDysarthriaA praxiaVoice D/C skilled ONLINE MARKETING STRATEGIST services as the patient is at pre-morbid baselineThank you for allowing me to participate in the care of this patient.Carrie Macias MA CCC-SLPTime In: 1603 Time Out: 1622Total Treatment Time: 19 minutes Normal [facility] Progress Notes Progress Notes by JASPER Torrez at 11/25/2015 3:58 PMAuthor: JASPER DoService: (none)Author Type: Speech and Language PathologistFiled: 11/25/2015 4:00 PMNote Time: 11/25/2015 3:58 PMNote Type: Progress NotesStatus: SignedEditor: JASPER Do (Speech and Language Pathologist)[facility] Medicine and RehabilitationAdmit date: 11/25/2015 Today's Date: 11/25/2015Patient Name/MR#: Janice Shultz [id number] was attempted for at 1544 for an initial speech evaluation.Therapy was not completed secondary to pt currently with windows laptop technician in room.Will reattempt as appropriate.Thank you for involving me in the care of this patient.Carrie Macias MA CCC-ONLINE MARKETING STRATEGIST [facility] Progress Notes Progress Notes by JASPER Naranjo ra at 11/25/2015 10:23 AMAuthor: JASPER RebolledoService: (none)Author Type: Speech and Language PathologistFiled: 11/25/2015 11:32 AMNote Time: 11/25/2015 10:23 AMNote Type: Progress NotesStatus: SignedEditor: JASPER Rebolledo (Speech and Language Pathologist)[facility] DaytonPhysical Medicine and RehabilitationAdmit date: 11/25/2015 Today's Date: 11/25/2015Patient Name/MR#: Janice Shultz [id number] Speech Evaluation Attempt:Speech -Date Initial Eval Attempted: 11/25/15peech -Time Initial Eval Attempted: 1023Speech -Reason Eval Not Completed: Patient Unavailable, Other (comment)Comments: Patient working with PT/OT.Speech evaluation will be reattempted as appropriate.Thank you for involving me in the care of this patient.Maria C Peck MA, CCC-ONLINE MARKETING STRATEGIST [facility] Progress Notes Progress Notes by STACI Nichole at 11/25/2015 10:16 AMAuthor: ESTELLE Matamoroservice: (none)Author Type: Social WorkerFiled: 11/25/2015 10:22 AMNote Time: 11/25/2015 10:16 AMNote Type: Progress NotesStatus: SignedEditor: STACI Matamoros (Bond Underwriter)SOCIAL WORK INITIAL ASSESSMENTName:Janice Sinhasohail Date:11/25/2015MR#:[id number] B:1945Room #:R3323/E5592NOzx/Sex:70 y.o. maleAdmit Date:11/25/2015Admitting:Same er ANDRESSA Floreservices:Discharge planningAgency:noneReferral [...] his daughter and grandchildren. He usually resides [place], [place] with his and is fully independent. Discussed with patient services available bydischarge planning. The patient denied any need for services from discharge planning. Social workto continue to follow. Elke Phillips, RUBBER CHEMIST, WHITE LEAD FILTERER Normal [facility] REPEAT TROPONIN 120 MINUTES FROM FIRST DRAWon 11-25-2015 Troponin I.cardiac mass conc ng/mL Normal 0.000-0.[address] [place] [address] Comment on above: Performed By: #### L [id number] ####[facility] [id number] [address] Troponin I.cardiac mass conc Normal [facility] Comment on above: Result Comment: Trop onin I 0.045-0.600 is abnormal but not clinically relevant. Please correlate with other clinical findings. Troponin I >0.600 is clinically relevant in accordance with WHO criteria. Performed By: #### L AB293 ####[facility] [id number] [place] [address] [place] TROPONIN Ion 11-25-2015 Troponin I.cardiac mass conc ng/mL Normal 0.000-0.[address] [place] [address] Comment on above: Performed By: #### L [id number] ####[facility] [id number] [address] [place] [address] [phone] Troponin I.cardiac mass conc Normal [facility] Comment on above: Result Comment: Trop onin I 0.045-0.600 is abnormal but not clinically relevant. Please correlate with other clinical findings. Troponin I >0.600 is clinically relevant in accordance with WHO criteria. Performed By: #### L [id number] ####[facility] CLIA [id number] [place] [address] [place] [facility], [phone] Performed By: #### L AB15 ####[facility] [id number] [place] [address] [place]#### [id number] ####[facility] [id number] [place] [address] [facility]U AND [place] [id number], [phone] Troponin I.cardiac mass conc ng/mL Normal 0.000-0.04 5 [facility] Comment on above: Performed By: #### L AB15 ####[facility] [id number] [place] [address] [place]#### [id number] ####[facility] [id number] [place] [address] [place] AND [place] [address] [phone] URINALYSIS W/REFLEX MICROSCO PYon 11-25-2015 BILIRUBIN, UA Negative Normal Negative [facility] Comment on above: Performed By: #### L AB347 ####[facility] [id number] [place] [address] [place] BLOOD, UA Negative Normal Negative [facility] Comment on above: Performed By: #### L AB347 ####[facility] CLIA [id number] [place] [address] [place] GLUCOSE, UA Negative Normal Negative [facility] Comment on above: Performed By: #### L AB347 ####[facility] [id number] [place] [address] [place] KETONES, UA Negative Normal Negative [facility] Comment on above: Performed By: #### L AB347 ####[facility] CLIA [id number] [place] [address] [place] LEUKOCYTES, UA Negative Normal Negative [facility] Comment on above: Performed By: #### L AB347 ####[facility] CLIA [id number] [place] [address] [place] PH, UA 6.5 Normal 5.0-8.0 [facility] Comment on above: Performed By: #### L AB347 ####[facility] [id number] [place] [address] [place] PROTEIN, UA Negative Normal Negative [facility] Comment on above: Performed By: #### L [id number] ####[facility] [id number] [place] [address] [place] SPECIFIC GRAVITY, UA 1.025 Normal 1.001-1 .03 5 [facility] Comment on above: Performed By: #### L AB347 ####[facility] CLIA [id number] [place] [address] [place] Urine, appearance Clear Normal Clear [facility] Comment on above: Performed By: #### L AB347 ####[facility] CLIA [id number] [place] [address] [place] Urine, color Yellow Normal Yellow [facility] Comment on above: Performed By: #### L [id number] ####[facility] CLIA [id number] [place] [address] [place] Urine, nitrite presence Negative Normal Negative [facility] Comment on above: Performed By: #### L AB347 ####[facility] CLIA [id number] [place] [address] [facility] UROBILINOGEN, UA 0.2 EU/dL Normal 0.2-1.0 [facility] Comment on above: Performed By: #### L AB347 ####[facility] [id number] [place] [id number] [facility] VAS-CAROTID DOP BILAT 17187i n 11-25-2015 VAS-CAROTID DOP BILAT 67048 A result will not be generated for [...] by: Patel Villatoro DO, 11/25/2015 11:24 AM Normal [facility] XR-CHEST PORTABLE Kiana XR-CHEST PORTABLE STAT [...] by: Carlos Ibanez DO, 11/25/2015 6:03 AM [facility] Vital Signs Date Time Vital Sign Value Performing Clinician Facility 11-13-2023 13:0400 Body height 180.[address] 11-13-2023 13:220400 Body mass index (BMI) [Ratio] 25.24 kg/m2 [address] 11-13-2023 13:040 Body weight 82.[address] 11-13-2023 13:22-0400 Diastolic blood pressure 78 mm[Hg] [address] 11-13-2023 13:040 Systolic blood pressure 122 mm[Hg] [address] 10-24-2023 10:26040 Body height 180.3 cm Lake Evangelista DO Work Phone: [facility] 10-24-2023 10:26-0400 Body mass index (BMI) [Ratio] 25.24 kg/m2 Lake Evangelista DO Work Phone: [facility] 10-24-2023 10:040 Body weight 82.1 kg Lake Evangelista DO Work Phone: [facility] 10-24-2023 10:26-0400 Diastolic blood pressure 78 mm[Hg] Lake Evangelista DO Work Phone: [facility] 10-24-2023 10:26-0400 Heart rate 74 /min Lake Evangelista DO Work Phone: [facility] 10-24-2023 10:26-0400 Systolic blood pressure 118 mm[Hg] Lake Evangelista DO Work Phone: [facility] 10-22-2023 14:25-0400 Body height 177.8 cm Sherif Paredes MD Work Phone: [employer] [facility] 10-22-2023 14:25-0400 Body mass index (BMI) [Ratio] 25.83 kg/m2 Sherif Paredes MD Work Phone: [employer] [facility] [employer] [facility] 10-22-2023 14:25-0400 Body weight 81.65 kg Sherif Paredes MD Work Phone: [facility] 10-22-2023 14:25-0400 Diastolic blood pressure 70 mm[Hg] Sherif Paredes MD Work Phone: [facility] 10-22-2023 14:25-0400 Heart rate 60 /min Sherif Paredes MD Work Phone: [facility] 10-22-2023 14:25-0400 Respiratory rate 16 /min Sherif Paredes MD Work Phone: [facility] 10-22-2023 14:25-0400 Systolic blood pressure 118 mm[Hg] Sherif Paredes MD Work Phone: [facility] 10-04-2023 08:29-0500 Diastolic blood pressure 70 mm[Hg] MD Sherif Paredes Work Phone: [facility] 10-04-2023 08:29-0500 Systolic blood pressure 120 mm[Hg] MD Sherif Paredes Work Phone: [facility] 10-04-2023 04:52-0500 Heart rate 75 /min MD Sherif Paredes Work Phone: [facility] 10-04-2023 04:44-0500 Body temperature 98 [degF] MD Sherif Paredes Work Phone: [facility] 10-04-2023 04:44-0500 Respiratory rate 20 /min MD Sherif Paredes Work Phone: [facility] 10-04-2023 04:44-0500 SaO2% (BldA) [Mass fraction] 94 % MD Sherif Paredes Work Phone: [facility] 09-30-2023 05:34-0500 Body weight 79.8 kg MD Sherif Paredes Work Phone: [facility] 09-26-2023 09:35-0500 Body height 180.34 cm MD Sherif Paredes Work Phone: [facility] 12-12-2022 14:00-0400 Body height 180.34 cm Trinh Bailey Other [employer] Other 12-12-2022 14:00-0400 Body mass index (BMI) [Ratio] 25.66 kg/m2 Trinh Bailey Other [employer] Other 12-12-2022 14:00-0400 Body temperature 97.3 [degF] Trinh Bailey Other [employer] Other 12-12-2022 14:00-0400 Body weight 83.46 kg Trinh Bailey Other [employer] Other 12-12-2022 14:00-0400 Diastolic blood pressure 82 mm[Hg] Trinh Bailey Other [employer] Other 12-12-2022 14:00-0400 SaO2% (BldA) [Mass fraction] 93 % Trinh Bailey Other [employer] Other 12-12-2022 14:00-0400 Systolic blood pressure 124 mm[Hg] Trinh Bailey Other [employer] Other 03-29-2022 10:28-0400 Body height 180.34 cm Sherif Lofton Defrance Work Phone: [facility] [employer] 250 DO Work Phone: 03-29-2022 10:28-0400 Body mass index (BMI) [Ratio] 26.5 kg/m2 Sherif Lofton Defrance Work Phone: [facility] [employer] 250 DO Work Phone: 03-29-2022 10:28-0400 Body surface area Derived from formula 2.06 m2 Sherif Lofton Defrance Work Phone: [facility] [employer] 250 DO Work Phone: 03-29-2022 10:28-0400 Body weight 86.18 kg Sherif Lofton Defrance Work Phone: [facility] [employer] 250 DO Work Phone: 03-29-2022 10:28-0400 Diastolic blood pressure 76 mm[Hg] Sherif Lofton Defrance Work Phone: [facility] 250 DO Work Phone: 03-29-2022 10:28-0400 Heart rate 60 /min Sherif Lofton Defrance Work Phone: [facility] [employer] 250 DO Work Phone: 03-29-2022 10:28-0400 Systolic blood pressure 124 mm[Hg] Sherif Lofton Defrance Work Phone: [facility] [employer] 250 DO Work Phone: 12-06-2021 13:15-0400 Body height 180.34 cm Trinh Bailey Other [employer] Other 12-06-2021 13:15-0400 Body mass index (BMI) [Ratio] 25.66 kg/m2 Trinh Bailey Other [employer] Other 12-06-2021 13:15-0400 Body weight 83.46 kg Trinh Bailey Other [employer] Other 12-06-2021 13:15-0400 Diastolic blood pressure 72 mm[Hg] Trinh Bailey Other [employer] Other 12-06-2021 13:15-0400 SaO2% (BldA) [Mass fraction] 97 % Trinh Bailey Other [employer] [facility] [employer] Other 12-06-2021 13:15-0400 Systolic blood pressure 138 mm[Hg] Trinh Bailey Other [employer] Other Encounters Encounter Date Encounter Type Care Provider Facility Start: 05-01-2024 End: 05-01-2024 ambulatory [facility] Start: 12-25-2023 End: 12-25-2023 [facility] Start: 11-13-2023 End: 11-14-2023 ambulatory [facility] Start: 11-13-2023 End: 11-13-2023 ambulatory [facility] Start: 11-13-2023 End: 11-13-2023 Subsequent hospital visit by physician Rachel Hill Echo/Vasc Room 2 [facility] Comment on above: Cerebrovascular acci dent (CVA), unspecified mechanism (CMS/HCC); Arterial ischemic stroke, remote, resolved Start: 10-29-2023 [facility]ill [facility] Start: 10-24-2023 End: 10-24-2023 Office outpatient visit 40 minutes [facility] DO Work Phone: [facility] Comment on above: 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, unspecified vessel or lesion type (CMS/HCC); Cerebrovascular accident (CVA), unspecified mechanism (CMS/HCC); History of PTCA 2; Hyperlipidemia, unspecified hyperlipidemia type; Vertigo as late effect of stroke; 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) Start: 10-24-2023 End: 10-24-2023 ambulatory [facility] Start: 10-22-2023 End: 10-22-2023 ambulatory SHERIF PAREDES [facility] Start: 10-22-2023 End: 10-22-2023 Transitional care manage srvc 14 day discharge Sherif Paredes MD Work Phone: [facility] Comment on above: Cerebrovascular acci dent (CVA), unspecified mechanism (CMS- HCC) (Primary Dx); Lacunar infarction (CMS-HCC); 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); Primary hypertension; Left arm numbness Start: 10-05-2023 Telephone encounter Eri guadarrama RN Work Phone: [facility] Comment on above: Transition Of Care Start: 10-03-2023 Non-patient / Non-visit MD Eric Paredes Work Phone: [facility] Work Phone: Start: 10-03-2023 Non-patient / Non-visit MD Eric Paredes Work Phone: [facility] Work Phone: Start: 09-26-2023 Orders Only Anel Llamas RN [facility] Comment on above: 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 ([facility]) (Primary Dx); Other cerebrovascular vasospasm and vasoconstriction Start: 09-26-2023 Non-patient / Non-visit MD Eric Paredes Work Phone: [facility] Work Phone: Start: 09-25-2023 End: 10-04-2023 Evaluation and management of inpatient Donovan La Facility:[facility] Start: 09-25-2023 End: 10-04-2023 Evaluation and management of inpatient MD Sherif Paredes Work Phone: [facility] Work Phone: Start: 09-20-2023 End: 09-25-2023 Evaluation and management of inpatient [facility] Start: 09-20-2023 End: 09-25-2023 Evaluation and management of inpatient [facility] Start: 09-20-2023 ambulatory SHERIF APONTERANCE [facility] Start: 09-20-2023 End: 09-25-2023 Evaluation and management of inpatient VIEH KEVON [facility] Start: 05-04-[address] [place] Facility: Start: 12-12-2022 End: 12-12-2022 ambulatory Trinh Bailey Other [employer] Other Start: 12-12-2022 Patient encounter procedure Trinh Santanalm [facility] Start: 11-24-2022 Rx Renewal Sherif Rodas ce Work Phone: [facility] DO Work Phone: Start: 11-20-2022 Telephone encounter Sherif Avendnao Work Phone: [facility] 250 DO Work Phone: Start: 09-12-2022 Rx Renewal Sherif caballero Work Phone: [facility] DO Work Phone: Start: 04-24-2022 End: 04-24-[address] CAITIE PITTS Facility:[facility] Start: 04-20-2022 Rx Renewal Sherif Rodas ce Work Phone: [facility] 250 DO Work Phone: Start: 03-29-2022 Office outpatient vi sit 15 minutes Sherif Paredes Work Phone: [facility] DO Work Phone: Start: 02-23-2022 Rx Renewal Sherif Rodas ce Work Phone: [facility] DO Work Phone: Start: 02-04-2022 End: 02-04-[address] EUGENE PICKETT Facility:[facility] Start: 12-06-2021 End: 12-06-2021 ambulatory Trinh Bailey Other [employer] Other Start: 12-06-2021 Follow-up encounter Trinh Leo [facility] Start: 09-13-2021 End: 09-13-[address] KENY MUELLER Facility: Start: 05-17-2021 Chart Update Sherif Rodas ce Work Phone: [facility] 250 DO Work Phone: Start: 05-17-2021 Patient encounter procedure Sherif Paredes Work Phone: [facility] [place] Work Phone: Start: 03-26-2018 Patient encounter PROVIDER UNKNOWN F acility:[id number] Start: 01-23-2018 End: 01-23-2018 Emergency department patient visit PROVIDER NOT IN SYSTEM [facility] Start: 09-07-2016 End: 09-08-2016 Evaluation and management of inpatient JAMESON Palma CYNDEEFroylanSherrie [facility] Start: 11-25-2015 End: 11-26-2015 Evaluation and management of inpatient KAY Tanner DAMERONVIDHYA [facility] Procedures Date Procedure Procedure Detail Performing Clinician Start: 11-13-2023 TRANSTHORACIC ECHO (TTE) LIMITED [place] Start: 11-13-2023 HOLTER OR EVENT CARD IAC MONITOR [place] Start: 11-13-2023 Echo transthorc r-t 2d w/wo m-mode rec f-up/lmtd [place] DO Work Phone: Start: 10-24-2023 Lipid panel [place] [facility] Start: 10-24-2023 HIGH SENSITIVITY CRP DARREL EVANGELISTA Start: 10-22-2023 Adult depression screening assessment Sherif [...] RN Angioplasty of carot id artery Sherif Lofton Lena Work Phone: Hernia repair Sherif Lofton Adrianna ce Work Phone: History of carotid endarterectomy H/O carotid endarterectomy Sherif Lofton Lena Work Phone: History of percutane ous transluminal coronary angioplasty History of PTCA 2 [place] DO Work Phone: Percutaneous transluminal coronary angioplasty Sherif Lofton Faybhupendra Work Phone: Procedure on back Sherif Rolly Avendano Work Phone: NEGATED: Highlighted row has not occurred! Total colonoscopy Sherif Paredes Work Phone: Plan of Treatment Date Care Activity Detail Author Start: 10-21-2024 Adult BMI Screening Adult BMI Screen ing [facility] Start: 10-21-2024 Depression Screening Depression Scre ening [facility] Start: 10-21-2024 Fall Risk Screening Fall Risk Screen ing [facility] [employer] Start: 10-21-2024 Tobacco Screening Tobacco Screening [facility] [employer] Start: 09-24-2024 Adult BMI Screening [facility] Start: 09-20-2024 Depression Screening Depression Scre ening [facility] Start: 09-20-2024 Tobacco Screening Tobacco Screening [facility] Start: 05-01-2024 End: 05-01-2024 Patient encounter procedure 05/01/2024 11:00 AM EDT Office Visit [facility] [address] [place] [address] [place] Evangelista DO [address] [place] [address] [facility] Start: 11-08-2023 End: 11-08-2023 Patient encounter procedure 11/08/2023 2:00 PM EDT [facility] [address] [place] [address] Gopal Nova MD [address] [place] [address], [address] [place] [address] [facility] Start: 10-24-2023 End: 10-23-2024 C reactive protein [Mass/volume] in Serum or Plasma by High sensitivity method C-Reactive Protein, High Sensitivity Lab Routine 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, unspecified vessel or lesion type (CMS/HCC) Cerebrovascular accident (CVA), unspecified mechanism (CMS/HCC) History of PTCA 2 Expected: 10/24/2023 (Approximate), Expires: 10/23/2024 [facility] Service Area Work Phone: Comment on above: Expected: 10/24/2023 (Approximate), Expires: 10/23/2024 Start: 10-24-2023 End: 10-23-2024 Holter monitor study Holter Or Event [facility] Routine 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, unspecified vessel or lesion type (CMS/HCC) Cerebrovascular accident (CVA), unspecified mechanism (CMS/HCC) History of PTCA 2 Vertigo as late effect of stroke Expected: 10/24/2023, Expires: 10/23/2024 [facility] Work Phone: Comment on above: Expected: 10/24/2023 , Expires: 10/23/2024 Start: 10-24-2023 End: 10-23-2024 Lipid 1996 panel - Serum or Plasma Lipid Panel Lab Routine Hyperlipidemia, unspecified hyperlipidemia type Expected: 10/24/2023 (Approximate), Expires: 10/23/2024 [facility] Work Phone: Comment on above: Expected: 10/24/2023 (Approximate), Expires: 10/23/2024 Start: 10-24-2023 End: 10-23-2025 Heart Transthoracic Transthoracic Echo Complete Echocardiography Routine 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, unspecified vessel or lesion type (CMS/HCC) Cerebrovascular accident (CVA), unspecified mechanism (CMS/HCC) History of PTCA 2 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) Expected: 10/24/2023 (Approximate), Expires: 10/23/2025 [facility] Work Phone: Comment on above: Expected: 10/24/2023 (Approximate), Expires: 10/23/2025 Start: 10-22-2023 End: 10-22-2023 Patient encounter procedure 10/22/2023 2:15 PM EDT [facility] [id number] Sherif Paredes MD [address] [place], [place] [id number] [facility] Start: 10-16-2023 End: 10-16-2023 Patient encounter procedure 10/16/2023 10:15 AM EST Office [place] [facility] [address] [place] [id number] Sherif Paredes MD [address] [place], [place] [id number] [facility] Start: 10-04-2023 [facility] Start: 09-26-2023 [facility] Start: 09-26-2023 End: 09-26-2024 Event Monitor (In Office) [facility] Work Phone: Comment on above: Expected: 09/26/2023 , Expires: 09/26/2024 Start: 09-25-2023 Hospital admission [facility] Start: 09-25-2023 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 250 DO Work Phone: Start: 03-29-2022 FUV, Provider: [place], Status: Pen, Time: 10:30 AM FUV, Provider: [place], Status: Pen, Time: 10:30 AM -[facility] 250 DO Work Phone: Start: 12-20-2021 FUV, Provider: [place], Status: Pen, Time: 11:15 AM FUV, Provider: [place], Status: Pen, Time: 11:15 AM -[facility] 250 DO Work Phone: Start: 10-15-2019 Medicare Annual Wellness Visit Medicare Annual Wellness Visit [facility] [employer] [facility] Start: 2012 Fall Risk Screening Fall Risk Screen ing [facility] [employer] [facility] Start: 1997 Zoster Vaccines (1 o f 2) Zoster Vaccines (1 of 2) [facility] Start: 1969 DTaP/Tdap/Td Vaccine s (1 - Tdap) DTaP/Tdap/Td Vaccines (1 - Tdap) [facility] Start: 1966 DTaP,Tdap and Td Vaccines (1 - Tdap) DTaP,Tdap and Td Vaccines (1 - Tdap) [facility] [employer] [facility] Start: 1965 Adult BMI Follow Up Plan Adult BMI Follow Up Plan [facility] Start: 1965 Diabetes mellitus screening Diabetes Screening [facility] Start: 1965 Hepatitis C [facility] Start: [facility] Lipid panel Lipid Panel [facility] Start: 1947 Medicare Annual Wellness Visit Medicare Annual Wellness Visit (AWV) [facility] Patient Education Stroke (DC) Le ft-Side Stroke (DC) [facility] Work Phone: Patient referral [facility] Work Phone: Immunizations Immunization Date Immunization Notes Care Provider Marcelle el 05-28-2023 Covid-19, Mrna, Lnp- s, Pf, 30 Mcg/0.3 Ml Dose, Keaton-sucrose Anel Llamas RN [facility] 05-28-2023 Covid-19, Mrna, Lnp- s, Pf,keaton-sucrose,30 Mcg/0.3ml Fall23 Anel Llamas RN [facility] 05-28-2023 Influenza Vaccine, Quadrivalent, Adjuvanted Anel Llamas RN [facility] 05-28-2023 Seasonal trivalent influenza vaccine, adjuvanted, preservative free Anel Llamas RN [facility] 04-27-2023 RSV, recombinant, protein subunit RSVpreF, adjuvant reconstituted, 0.5 mL, PF Anel Llamas RN [facility] 01-19-2023 Pfizer COVID-19 vacc ine, bivalent, age 12 years and older (30 mcg/0.3 mL) [place] Evangel[place] DO Work Phone: [facility] Work Phone: 05-25-2022 Influenza, High-dose , Quadrivalent Anel Llamas RN [facility] 04-27-2022 Covid-19, Mrna, Lnp- s, Bivalent, Pf, 30mcg/0.3 ml Anel Llamas RN [facility] 04-27-2022 COVID-19, mRNA, LNP- S, PF, 30mcg/0.3mL Dose Anel Llamas RN [facility] 11-10-2021 Covid-19, Mrna, Lnp- s, Pf, 30 Mcg/0.3 Ml Dose, Keaton-sucrose Anel Llamas RN [facility] 11-10-2021 SARS-COV-2 (COVID-19 ) Vaccine, Unspecified Anel Llamas RN [facility] 05-19-2021 Influenza Vaccine, Quadrivalent, Adjuvanted Anel Llamas RN [facility] 05-19-2021 influenza virus vacc ine, unspecified formulation Anel Llamas RN [facility] 04-05-2021 PfizerBioNTech COVI D-19 Vacc 30 MCG/0.3ML Intramuscular Suspension Sherif T Defrance Work Phone: [facility] 250 DO Work Phone: 09-29-2020 [employer]izer[employer] COVI D-19 Vacc 30 MCG/0.3ML Intramuscular Suspension Sherif Rolly Defrance Work Phone: [facility] 250 DO Work Phone: 09-06-2020 Pfizer-BioNTech COVI D-19 Vacc 30 MCG/0.3ML Intramuscular Suspension Sherif Rolly Defrance Work Phone: [facility] 250 DO Work Phone: 05-13-2020 influenza, seasonal, injectable Sherif Lofton Defrance Work Phone: [facility] 04-16-2020 Influenza Vaccine, Quadrivalent, Adjuvanted Anel Llamas RN [facility] 04-16-2020 influenza, injectabl e, quadrivalent, preservative free Sherif T Defrance Work Phone: [facility] 04-16-2020 pneumococcal polysaccharide vaccine, 23 valent Sherif T Defrance Work Phone: [facility] 09-25-2019 zoster vaccine recombinant Sherif T Defrance Work Phone: [facility] 07-22-2019 zoster vaccine recombinant Sherif T Defrance Work Phone: [facility] 07-13-2019 pneumococcal conjuga te vaccine, 13 valent Sherif T Defrance Work Phone: [facility] 250 DO Work Phone: 05-14-2019 influenza, high dose seasonal, preservative-free Sherif T Defrance Work Phone: [facility] 250 DO Work Phone: 05-14-2019 Seasonal trivalent influenza vaccine, adjuvanted, preservative free Sherif T Defrance Work Phone: [facility] 04-13-2019 influenza, seasonal, injectable [facility] Defrance [facility] Work Phone: 10-20-2018 pneumococcal conjuga te vaccine, 13 valent Sherif T Defrance Work Phone: [facility] 05-27-2018 influenza, high dose seasonal, preservative-free Anel Llamas RN [facility] 05-29-2017 influenza virus vacc ine, unspecified formulation Anel Llamas RN [facility] 05-29-2017 pneumococcal conjuga te vaccine, 13 valent Anel Llamas RN [facility] 04-13-2017 influenza virus vacc ine, unspecified formulation Sherif [facility] Defrance Work Phone: [facility] DO Work Phone: 09-08-2016 pneumococcal polysaccharide vaccine, 23 valent Sherif T Defrance [facility] Work Phone: 08-25-2016 pneumococcal polysaccharide vaccine, 23 valent Sherif T Defrance [facility] Work Phone: 06-14-2016 influenza, high dose seasonal, preservative-free Sherif T Defrance Work Phone: [facility] Work Phone: 05-29-2016 influenza virus vacc ine, unspecified formulation Anel Llamas RN [facility] 05-29-2016 influenza, injectabl e, madin julito canine kidney, preservative free Sherif T Defrance [facility] Work Phone: 05-13-2016 influenza virus vacc ine, unspecified formulation Sherif T Defrance [facility] Work Phone: 05-13-2015 influenza virus vacc ine, unspecified formulation Sherif Lofton Defrance Work Phone: [facility] 250 DO Work Phone: 04-27-2015 influenza virus vacc ine, unspecified formulation Anel Llamas RN [facility] 04-27-2015 influenza, seasonal, injectable Sherif Lofton Defrance Work Phone: [facility] 250 DO Work Phone: 04-26-2015 pneumococcal polysaccharide vaccine, 23 valent Sherif Lofton Defrance Work Phone: [facility] 250 DO Work Phone: 05-13-2014 influenza virus vacc ine, unspecified formulation Sherif Lofton Defrance Work Phone: [facility] 250 DO Work Phone: 05-13-2013 pneumococcal polysaccharide vaccine, 23 valent Sherif Lofton Defrance [facility] Work Phone: 09-06-2009 novel influenza-H1N1 -09, preservative-free, injectable Sherif Lofton Defrance Work Phone: [facility] 250 DO Work Phone: Payers Date Payer Category Payer Medicare [id number] 2023 Self-pay [id number] 2021 Medicare [id number] 1959 Private Health Insurance [id number] 1947 Unknown [id number] [id number] 1947 Unknown [id number] [id number] 1947 Unknown [id number] 2.16.840.1.102805.3.579.2.593 1947 Unknown [id number] 2.16.840.1.920937.3.579.2.356 1947 Unknown [id number] 2.16.840.1.659588.3.579.2.1286 1947 Unknown [id number] 2.16840.1.082284.3.579.2.128 1947 Unknown [id number] 2.16840.1.577113.3.579.2.128 1947 Unknown [id number] 2.840.1.240718.3.579.2.128 1947 Unknown [id number] 2.16840.1.094920.3.579.2.1246 1947 Unknown [id number] 2.840.1.752811.3.579.2.128 1947 Unknown [id number] 2.16840.1.465569.3.579.2.1286 1947 Unknown [id number] 2.840.1.871797.3.579.2.1286 1947 Unknown [id number] 2.16840.1.028635.3.579.2.1286 1947 Unknown [id number] 2.16840.1.321614.3.579.2.1244 1947 Unknown [id number] 2.16840.1.265114.3.579.2.1244 1947 Unknown [id number] [id number] Medicare [id number] Unknown [id number] Unknown Unknown [place] ewa [place] [id number] Unknown [id number] [id number] Unknown [id number] [id number] Social History Date Type Detail Facility Start: 09-25-2023 End: 10-24-2023 Occasional alcohol use Occasional alcohol use [facility] Start: 09-25-2023 End: 10-24-2023 Sex Assigned At [facility] Start: 01-31-2018 End: 10-15-2023 Tobacco smoking status [facility] Never smoked tobacco [facility] Start: 01-31-2018 End: 10-15-2023 Tobacco use and exposure Smokeless tobacco non-user [facility] Start: 09-20-2023 End: 10-22-2023 Alcohol intake Ex-drinker (finding) [facility] Has the [employer], or [employer] threatened to shut off services in your home in past 12Mo No [facility] [employer] How often to you hav e a drink containing alcohol? Never [facility] [employer] How many standard drinks containing alcohol do you have on a typical day? Patient does not drink [facility] Start: 1945 Sex Assigned At Not on file P [facility] Start: 1945 Sex Assigned At Male F [facility] Start: 10-24-2023 Alcohol intake Current drinke r of alcohol (finding) [facility] Work Phone: Start: 10-15-2023 Alcohol Comment occasional [facility] Work Phone: Start: 10-14-2023 End: 11-13-2023 Exposure to SARS-CoV-2 (event) Not sure [facility] Medical Equipment Procedure Code Equipment Code Equipment Origin al Text Equipment Identifier Dates Endarterectomy, carotid Cardiovascular patch, animal-derived [id number] FDA Start: 05-10-2020 Goals Date Patient Goal Desired Activity /State Personal health goal Comment on above: Formatting of this n ote might be different from the original. 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 [facility] Work Phone: 09-25-2023 Functional status Disability Sta tus Patient at [facility] Work Phone: Mental Status Date Assessment Result Facility 10-04-2023 Cognitive function Cognitive Sta tus Patient at [facility] Work Phone: Clinical Notes 12-06-2021 [...] conservatively [place] and then subsequent rehab on 5 tower at [facility]. He is now recovered [...] Assessment/Plan 1. 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, unspecified vessel or lesion type (CMS/HCC) 2. Cerebrovascular accident (CVA), unspecified mechanism (CMS/HCC) 3. History of PTCA 2 4. Hyperlipidemia, unspecified hyperlipidemia type Scribe Attestation By signing my name below, ICathie LPN Scribe attest that this documentation has [...] discussion and plan. documented in this encounter [facility] Work Phone: 10-24-2023 Instructions Cathie Novak [...] Increase physical activity. documented in this encounter [facility] Work Phone: 10-22-2023 History of Presen t illness Narrative Images from the original note were not included. [address] [facility] [place] [address] SUBJECTIVE: Transition of Care Additional Questions/Concerns Requiring PCP Follow-Up: may call to change [facility] appt. This documentation is being used for Transition of Care purposes: Yes Goal: Patient will demonstrate a safe transition from facility to home Diagnosis on Discharge: CVA Impaired mobility and ADL's Vertigo History of cardiac catheterization HTN Hyperlipidemia Discharge Specialty: Neurology Name of Discharging Facility: [facility] rehab Patient was at [facility] 09/20/23 - 09/25/23 Date of Facility Discharge: 09/25/23 - 10/04/23 Date of Interactive Contact and Name of Management Scientist: Spoke with Janice on 10/05/23 Medication Review Completed: Yes Medication Reconciliation Questions/Concerns: Tylenol 500 mg every 4 hours as needed Meclizine 25 mg every 8 hours as needed for dizziness Scopolamine patch every 72 hours as need for dizziness Discontinue- Rosuvastatin Follow Up Appointments with Providers: Primary: Sherif Paredes MD [facility] 10/16/23 @ 3:15 Specialty: OP therapy at [facility] Specialty: Neurology Dr Rosado - 10/17/23 @ [...] Check blood sugars at breakfast and dinner internal medicine physician placed day of discharge and follow instructions [...] Eri Martin RN, can be reached at [phone] and will follow for a minimum of [...] this visit: Cerebrovascular accident (CVA), unspecified mechanism ([facility]) 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 Follow-up: F/u neurologist and cardiology Pt has deferred outpatient therapy or home health Refilled tamulosin documented in this encounter [facility] 10-05-2023 Miscellaneous Notes A user error has taken place: encounter opened in error, closed for administrative reasons. documented in this encounter [facility] 10-05-2023 Telephone encounter Note A user error has taken place: encounter opened in error, closed for administrative reasons. [facility] Work Phone: 10-05-2023 Miscellaneous Notes Transition of Care Additional Questions/Concerns Requiring PCP Follow-Up: may call to change BEL[facility] appt. This documentation is being used for Transition of Care purposes: Yes Goal: Patient will demonstrate a safe transition from facility to home Diagnosis on Discharge: CVA Impaired mobility and ADL's Vertigo History of cardiac catheterization HTN Hyperlipidemia Discharge Specialty: Neurology Name of Discharging Facility: [facility] re[facility] Patient was at [facility] 09/20/23 - 09/25/23 Date of Facility Discharge: 09/25/23 - 10/04/23 Date of Interactive Contact and Name of Management Scientist: Spoke with Janice on 10/05/23 Medication Review Completed: Yes Medication Reconciliation Questions/Concerns: Tylenol 500 mg every 4 hours as needed Meclizine 25 mg every 8 hours as needed for dizziness Scopolamine patch every 72 hours as need for dizziness Discontinue- Rosuvastatin Follow Up Appointments with Providers: Primary: Sherif Paredes MD [facility] 10/16/23 @ 3:15 Specialty: OP therapy at [facility] Specialty: Neurology Dr Rosado - 10/17/23 @ [...] Check blood sugars at breakfast and dinner internal medicine physician placed day of discharge and follow instructions [...] Eri Martin RN, can be reached at [phone] and will follow for a minimum of 30 days following hospitalization. Communication with Home Health Agencies and Other Services Utilized/Needed by the Patient: Scheduled. documented in this encounter [facility] 10-05-2023 Telephone encounter Note Transition of Care Additional Questions/Concerns Requiring PCP Follow-Up: may call to change BEL[facility] appt. This documentation is being used for Transition of Care purposes: Yes Goal: Patient will demonstrate a safe transition from facility to home Diagnosis on Discharge: CVA Impaired mobility and ADL's Vertigo History of cardiac catheterization HTN Hyperlipidemia Discharge Specialty: Neurology Name of Discharging Facility: [facility] re[facility] Patient was at [facility] 09/20/23 - 09/25/23 Date of Facility Discharge: 09/25/23 - 10/04/23 Date of Interactive Contact and Name of Management Scientist: Austin with Janice on 10/05/23 Medication Review Completed: Yes Medication Reconciliation Questions/Concerns: Tylenol 500 mg every 4 hours as needed Meclizine 25 mg every 8 hours as needed for dizziness Scopolamine patch every 72 hours as need for dizziness Discontinue- Rosuvastatin Follow Up Appointments with Providers: Primary: Sherif Paredes MD [facility] 10/16/23 @ 3:15 Specialty: OP therapy at [facility] Specialty: Neurology Dr Rosado - 10/17/23 @ [...] Check blood sugars at breakfast and dinner internal medicine physician placed day of discharge and follow instructions [...] Eri Martin RN, can be reached at [phone] and will follow for a minimum of 30 days following hospitalization. Communication with Home Health Agencies and Other Services Utilized/Needed by the Patient: [facility] Work Phone: 10-05-2023 Telephone encounter Note Scheduled. [facility] 10-03-2023 Progress note Note Date/Time October 03, 2023 1:35pm [facility] [address] [place] [address] Hospitalist Progress Note Signed Patient: Janice Shultz MR#: [id number] : 1945 Acct:[id number] Age/Sex: 78 / M Adm Date: 4 Loc: Room: [address] [place] [address] Type: ADM IN Attending Dr: Donovan La [...] mg 09/25/23 15:43 Bisacodyl 10 Mg Supp.Rect MA 09/24/24 15:42 DAILY PRN Constipation Docusate Sodium 100 mg 09/25/23 15:43 09/30/23 09:07 Docusate 100 Mg Capsule PO 09/24/24 15:42 100 mg BID PRN Administration Constipation Docusate Sodium 283 mg 09/25/23 15:43 Docusate Enema 283 Mg/5 Ml Enema MA 09/24/24 15:42 DAILY PRN Constipation Fish Oil 1,000 mg 09/25/23 21:00 10/03/23 09:11 [place]-3/Fish Oil 1,000 Mg Capsule PO 09/24/24 20:59 [...] sugars reviewed, well-controlled 2. Hypertension, CAD hx IN/ stents, HLD?metoprolol, Fish oil, ASA. Blood pressures reviewed, well-controlled 3. BPH?tamsulosin, monitor for retention Documented By: Sarah Malhotra APRN 10/03/23 1327 Signed By: <Electronically signed by NAN Malhotra> 10/03/23 1426 <Electronically signed by Niurka Chung MD> 10/03/23 1643 [facility] Work Phone: 1(171) 188-411002-21-2024 Progress note Author Hernan Minaya [facility] October 03, 2023 2:33pm Note Date/Time October 03, 2023 2:33pm [facility] [address] [place] [address] Physiatry(Rehab) Progress Note Signed Patient: Janice Shultz MR#: [id number] : 1945 Acct:[id number] Age/Sex: 78 / M Adm Date: 4 Loc: Room: [address] [place] [address] Type: ADM IN Attending Dr: Donovan La MD Copies to: ~ Date of Service: 10/03/2023 Subjective Subjective Narrative: Mr. 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 The patient initially presents to [facility] for evaluation for 5 days vertigo with N/V, blurred vision, and gait instability. He reportedly had a fall1 day prior to admission due to vertigo. Non contrast CTH was done and demonstrated evidence of hemorrhage in the PICA territory. Patient was transferred to [facility]. MRI was done andconfirmed PICA ischemic [...] mg 09/25/23 15:43 Bisacodyl 10 Mg Supp.Rect MA 09/24/24 15:42 DAILY PRN Constipation Docusate Sodium 100 mg 09/25/23 15:43 09/30/23 09:07 Docusate 100 Mg Capsule PO 09/24/24 15:42 100 mg BID PRN Administration Constipation Docusate Sodium 283 mg 09/25/23 15:43 Docusate Enema 283 Mg/5 Ml Enema MA 09/24/24 15:42 DAILY PRN Constipation Fish Oil 1,000 mg 09/25/23 21:00 10/03/23 09:11 [place]-3/Fish Oil 1,000 Mg Capsule PO 09/24/24 20:59 [...] HTN, CAD s/p CABG who presents to [facility] for rehab following 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 He has continued impaired mobility and impaired independence with ADLsand IADLs requiring PT/OT/ONLINE MARKETING STRATEGIST 5-7 days/week 3 hours/day to maximize safety [...] equipment to enhance the patient's a functional hoahaoism Encourage deep breathing exercises and incentive spirometry [...] greater than 25 minutes for services, including bwfn-ek-wbeo encounter with the patient, discussion of the case, plan of care, and exam; and vqeqpex-uv-rkxs activities, such as reviewing pertinent successfactors consultant documentation, recent therapy notes, laboratory and radiology studies, and discussion of case with care team including physician, nursing, corrections caseworker, and therapists. More than 50 % of time was spent on patient/family counseling or coordination ofcare. Documented By: Hernan Minaya MD 10/03/23 1429 Signed By: <Electronically signed by Hernan Minaya MD> 10/03/23 1433 [facility] Work Phone: 1(807) 184-158702-20-2024 Progress note Author Donovan La [facility] October 02, 2023 1:17pm Note Date/Time October 02, 2023 11:03am [facility] [address] [place] [address] Physiatry(Rehab) Progress Note Signed Patient: Janice Shultz MR#: [id number] : 1945 Acct:[id number] Age/Sex: 78 / M Adm Date: 4 Loc: Room: [address] [place] [address] Type: ADM IN Attending Dr: Donovan La MD Copies to: ~ Date of Service: 10/02/2023 Subjective Subjective Narrative: Mr. 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 The patient initially presents to [facility] for evaluation for 5 days vertigo with N/V, blurred vision, and gait instability. He reportedly had a fall1 day prior to admission due to vertigo. Non contrast CTH was done and demonstrated evidence of hemorrhage in the PICA territory. Patient was transferred to [facility]. MRI was done andconfirmed PICA ischemic [...] mg 09/25/23 15:43 Bisacodyl 10 Mg Supp.Rect MA 09/24/24 15:42 DAILY PRN Constipation Docusate Sodium 100 mg 09/25/23 15:43 09/30/23 09:07 Docusate 100 Mg Capsule PO 09/24/24 15:42 100 mg BID PRN Administration Constipation Docusate Sodium 283 mg 09/25/23 15:43 Docusate Enema 283 Mg/5 Ml Enema MA 09/24/24 15:42 DAILY PRN Constipation Fish Oil 1,000 mg 09/25/23 21:00 10/02/23 09:50 [place]-3/Fish Oil 1,000 Mg Capsule PO 09/24/24 20:59 [...] HTN, CAD s/p CABG who presents to [facility] for rehab following 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 He has continued impaired mobility and impaired independence with ADLsand IADLs requiring PT/OT/ONLINE MARKETING STRATEGIST 5-7 days/week 3 hours/day to maximize safety [...] equipment to enhance the patient's a functional hoahaoism Encourage deep breathing exercises and incentive spirometry [...] greater than 15 minutes for services, including trac-ng-ldsv encounter with the patient, discussion of the case, plan of care, and exam; and vfkwrkd-hi-mdhh activities, such as reviewing pertinent successfactors consultant documentation, recent therapy notes, laboratory and radiology studies, and discussion of case with care team including physician, nursing, corrections caseworker, and therapists. More than 50 % of time was spent on patient/family counseling or coordination ofcare. <Statement entered by Donovan La MD - 10/02/23 13:17> I completed a substantive portion of this encounter, the medical decision makingportion of this note in its entirety, including Allied health note review, nursing note review, successfactors consultant note review, discussion with nursing and case management, and more than 50% of my time was spent on counseling and coordination of care, time spent 27 minutes Patient was personally seen by me, Dr. La, on the day of encounter, reviewed the history and the relevant portions of the chart, including current orders, allied health and successfactors consultant notes, labs/imaging and performed mims elements of exam and I formulated the plan of care and facilitated the medical decision making. Documented By: Tracy Fernandez APRN 10/02/23 1 056 Signed By: <Electronically signed by NAN Fernandez> 10/02/23 1102 <Electronically signed by Donovan La MD> 10/02/23 1317 [facility] Work Phone: 1(813) 276-375202-19-2024 Progress note Author Donovan La [facility] October 01, 2023 1:32pm Note Date/Time October 01, 2023 1:32pm [facility] [address] [place] [address] Physiatry(Rehab) Progress Note Signed Patient: Janice Shultz MR#: [id number] : 1945 Acct:[id number] Age/Sex: 78 / M Adm Date: 4 Loc: Room: 7I8025-6 Type: ADM IN Attending Dr: Donovan La MD Copies to: ~ Date of Service: 10/01/2023 Subjective Subjective Narrative: Mr. 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 The patient initially presents to [facility] for evaluation for 5 days vertigo with N/V, blurred vision, and gait instability. He reportedly had a fall1 day prior to admission due to vertigo. Non contrast CTH was done and demonstrated evidence of hemorrhage in the PICA territory. Patient was transferred to [facility]. MRI was done andconfirmed PICA ischemic [...] mg 09/25/23 15:43 Bisacodyl 10 Mg Supp.Rect MA 09/24/24 15:42 DAILY PRN Constipation Docusate Sodium 100 mg 09/25/23 15:43 09/30/23 09:07 Docusate 100 Mg Capsule PO 09/24/24 15:42 100 mg BID PRN Administration Constipation Docusate Sodium 283 mg 09/25/23 15:43 Docusate Enema 283 Mg/5 Ml Enema MA 09/24/24 15:42 DAILY PRN Constipation Fish Oil 1,000 mg 09/25/23 21:00 10/01/23 09:11 [place]-3/Fish Oil 1,000 Mg Capsule PO 09/24/24 20:59 [...] HTN, CAD s/p CABG who presents to [facility] for rehab following 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 He has continued impaired mobility and impaired independence with ADLsand IADLs requiring PT/OT/ONLINE MARKETING STRATEGIST 5-7 days/week 3 hours/day to maximize safety [...] equipment to enhance the patient's a functional hoahaoism Encourage deep breathing exercises and incentive spirometry [...] greater than 15 minutes for services, including jrpz-qa-umjw encounter with the patient, discussion of the case, plan of care, and exam; and ukzvmvm-ei-eokt activities, such as reviewing pertinent successfactors consultant documentation, recent therapy notes, laboratory and radiology studies, and discussion of case with care team including physician, nursing, corrections caseworker, and therapists. More than 50 % of time was spent on patient/family counseling or coordination ofcare. Documented By: Donovan La MD 1327 Signed By: <Electronically signed by Donovan La MD> 10/01/23 [facility] Work Phone: 1(266) 439-186002-19-2024 Progress note Author Donovan La [facility] October 01, 2023 9:30am Note Date/Time September 28, 2023 12:45pm [facility] [address] [place] [address] Physiatry(Rehab) Progress Note Signed Patient: Janice Shultz MR#: [id number] : 1945 Acct:[id number] Age/Sex: 78 / M Adm Date: 4 Loc: Room: [address] [place] [address] Type: ADM IN Attending Dr: Donovan La MD Copies to: ~ Date of Service: 09/28/2023 Subjective Subjective Narrative: Mr. 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 The patient initially presents to [facility] for evaluation for 5 days vertigo with N/V, blurred vision, and gait instability. He reportedly had a fall1 day prior to admission due to vertigo. Non contrast CTH was done and demonstrated evidence of hemorrhage in the PICA territory. Patient was transferred to [facility]. MRI was done andconfirmed PICA ischemic [...] mg 09/25/23 15:43 Bisacodyl 10 Mg Supp.Rect MA 09/24/24 15:42 DAILY PRN Constipation Docusate Sodium 100 mg 09/25/23 15:43 09/28/23 08:43 Docusate 100 Mg Capsule PO 09/24/24 15:42 100 mg BID PRN Administration Constipation Docusate Sodium 283 mg 09/25/23 15:43 Docusate Enema 283 Mg/5 Ml Enema MA 09/24/24 15:42 DAILY PRN Constipation Fish Oil 1,000 mg 09/25/23 21:00 09/28/23 08:43 [place]-3/Fish Oil 1,000 Mg Capsule PO 09/24/24 20:59 [...] HTN, CAD s/p CABG who presents to [facility] for rehab following 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 He has continued impaired mobility and impaired independence with ADLsand IADLs requiring PT/OT/ONLINE MARKETING STRATEGIST 5-7 days/week 3 hours/day to maximize safety [...] equipment to enhance the patient's a functional hoahaoism Encourage deep breathing exercises and incentive spirometry [...] greater than 15 minutes for services, including lwkv-zm-lrxq encounter with the patient, discussion of the case, plan of care, and exam; and mrzmlva-ua-xmij activities, such as reviewing pertinent successfactors consultant documentation, recent therapy notes, laboratory and radiology studies, and discussion of case with care team including physician, nursing, corrections caseworker, and therapists. More than 50 % of time was spent on patient/family counseling or coordination ofcare. <Statement entered by Donovan La MD - 10/01/23 09:30> This documentation has been reviewed and approved. Documented By: Tracy Fernandez APRN 09/28/23 1 241 Signed By: <Electronically signed by NAN Fernandez> 09/28/23 1250 <Electronically signed by Donovan La MD> 10/01/23 0930 [facility] Work Phone: 1(868) 932-815602-19-2024 Progress note Author Donovan La [facility] October 01, 2023 9:30am Note Date/Time September 29, 2023 11:26am [facility] [address] [place] [address] Physiatry(Rehab) Progress Note Signed Patient: Janice Shultz MR#: [id number] : 1945 Acct:[id number] Age/Sex: 78 / M Adm Date: 4 Loc: Room: [address] [place] [address] Type: ADM IN Attending Dr: Donovan La MD Copies to: ~ Date of Service: 09/29/2023 Subjective Subjective Narrative: Mr. 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 The patient initially presents to [facility] for evaluation for 5 days vertigo with N/V, blurred vision, and gait instability. He reportedly had a fall1 day prior to admission due to vertigo. Non contrast CTH was done and demonstrated evidence of hemorrhage in the PICA territory. Patient was transferred to [facility]. MRI was done andconfirmed PICA ischemic [...] like to transition patient's neurological care to [place]. Will contact KAREN Rodriguez to see if [...] mg 09/25/23 15:43 Bisacodyl 10 Mg Supp.Rect MA 09/24/24 15:42 DAILY PRN Constipation Docusate Sodium 100 mg 09/25/23 15:43 09/28/23 08:43 Docusate 100 Mg Capsule PO 09/24/24 15:42 100 mg BID PRN Administration Constipation Docusate Sodium 283 mg 09/25/23 15:43 Docusate Enema 283 Mg/5 Ml Enema MA 09/24/24 15:42 DAILY PRN Constipation Fish Oil 1,000 mg 09/25/23 21:00 09/29/23 08:46 [place]-3/Fish Oil 1,000 Mg Capsule PO 09/24/24 20:59 [...] HTN, CAD s/p CABG who presents to [facility] for rehab following 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 He has continued impaired mobility and impaired independence with ADLsand IADLs requiring PT/OT/ONLINE MARKETING STRATEGIST 5-7 days/week 3 hours/day to maximize safety [...] equipment to enhance the patient's a functional hoahaoism Encourage deep breathing exercises and incentive spirometry [...] greater than 15 minutes for services, including hawe-yk-szhk encounter with the patient, discussion of the case, plan of care, and exam; and tqboqpc-zr-vqmp activities, such as reviewing pertinent successfactors consultant documentation, recent therapy notes, laboratory and radiology studies, and discussion of case with care team including physician, nursing, corrections caseworker, and therapists. More than 50 % of time was spent on patient/family counseling or coordination ofcare. <Statement entered by Donovan La MD - 10/01/23 09:29> This documentation has been reviewed and approved. Documented By: Tracy Fernandez APRN 09/29/23 1 119 Signed By: <Electronically signed by NAN Fernandez> 09/29/23 1126 <Electronically signed by Donovan La MD> 10/01/23 0930 [facility] Work Phone: 1(547) 440-227102-15-2024 Consult note Author Adriana Ling [facility] September 27, 2023 8:06pm Note Date/Time September 27, 2023 5:55pm [facility] [address] [place] [address] Hospitalist Consult Note Signed Patient: Janice Shultz MR#: [id number] : 1945 Acct:[id number] Age/Sex: 78 / M Adm Date: 4 Loc: Room: [address] [place] [address] Type: ADM IN Attending Dr: Donovan La MD Copies to: MD Sherif Mercado MD Lynn A Stackhouse-Roby, NAN Ling MD~ HPI DATE OF CONSULTATION: 09/26/23 REQUESTING PROVIDER: Donovan La Consult Narrative Reason for Consult: Diabetes HPI: 78-year-old male past medical history significant for CAD history IN and stents,hypertension, hyperlipidemia, diabetes, CVA, BPH. [facility] [facility], vertigo nausea and vomiting, gait instability with fall 1 day prior to presentation. Workup demonstrated evidenceof hemorrhage and peaked territory on noncontrast CT. Patient was urgently transferred to [facility] for further management. MRI of the brain there confirmed Picot ischemic stroke with hemorrhagic conversion. The patient was seen by neurosurgical services while there with no interventions recommended. CTA did show evidence of occluded left V1 and moderate stenosis of right M1. Hewas seen by therapy services and ultimately transferred to the inpatient rehab unit here at [facility] September 26. Hospitalist team is now consulted [...] noted below or in HPI [facility] Medical History (Updated 09/27/23 @ 18:01 by [...] mg 09/25/23 15:43 Bisacodyl 10 Mg Supp.Rect MA 09/24/24 15:42 DAILY PRN Constipation Docusate Sodium 100 mg 09/25/23 15:43 Docusate 100 Mg Capsule PO 09/24/24 15:42 BID PRN Constipation Docusate Sodium 283 mg 09/25/23 15:43 Docusate Enema 283 Mg/5 Ml Enema MA 09/24/24 15:42 DAILY PRN Constipation Fish Oil 1,000 mg 09/25/23 21:00 09/26/23 08:42 [place]-3/Fish Oil 1,000 Mg Capsule PO 09/24/24 20:59 [...] Tablet PO 09/24/24 20:59 Not Given BID [facility] Scopolamine 1 each 09/28/23 09:00 Scopolamine 1 Mg/3 Days Patch TRANSDERML 09/27/24 08:59 Q72HR [facility] Sennosides 2 tab 09/26/23 12:00 Sennosides [...] % (Auto) 68.0, Lymph % (Auto) 19.4, Mathews % (Auto) 9.4, Eos % (Auto) 2.1, Baso % (Auto) 1.1, Nucleat RBC Rel Count 0.0, Neut # (Auto) 6.2, Lymph # (Auto) 1.8, Mathews # (Auto) 0.9 H, Eos # (Auto) [...] conditions 1. Diabetes?metformin 2. Hypertension, CAD hx IN/ stents, HLD?metoprolol. BPs reviewed and controlled. Fish oil, ASA 3. BPH?tamsulosin, monitor for retention Documented By: Jessie Andrea APRN 09/13 12/04 1800 Signed By: <Electronically signed by NAN Andrea> 09/27/23 1805 <Electronically signed by Adriana Ling MD> 09/27/232005 [facility] Work Phone: 1(159) 177-839802-15-2024 Progress note Author Donovan La [facility] September 27, 2023 12:57pm Note Date/Time September 27, 2023 10:58am [facility] [address] [place] [address] Physiatry(Rehab) Progress Note Signed Patient: Janice Shultz MR#: [id number] : 1945 Acct:[id number] Age/Sex: 78 / M Adm Date: 4 Loc: Room: [address] [place] [address] Type: ADM IN Attending Dr: Donovan La MD Copies to: ~ <Toni Orozco MD, RES - Last Filed: 09/27/23 10:58> Date of Service: 09/27/2023 Subjective <Toni Orozco MD, RES - Last Filed: 09/27/23 10:58> Subjective Narrative: Mr. 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 The patient initially presents to [facility] for evaluation for 5 days vertigo with N/V, blurred vision, and gait instability. He reportedly had a fall1 day prior to admission due to vertigo. Non contrast CTH was done and demonstrated evidence of hemorrhage in the PICA territory. Patient was transferred to [facility]. MRI was done andconfirmed PICA ischemic [...] mg 09/25/23 15:43 Bisacodyl 10 Mg Supp.Rect MA 09/24/24 15:42 DAILY PRN Constipation Docusate Sodium 100 mg 09/25/23 15:43 Docusate 100 Mg Capsule PO 09/24/24 15:42 BID PRN Constipation Docusate Sodium 283 mg 09/25/23 15:43 Docusate Enema 283 Mg/5 Ml Enema MA 09/24/24 15:42 DAILY PRN Constipation Fish Oil 1,000 mg 09/25/23 21:00 09/27/23 08:10 [place]-3/Fish Oil 1,000 Mg Capsule PO 09/24/24 20:59 [...] HTN, CAD s/p CABG who presents to [facility] IRF for rehab following 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 He has continued impaired mobility and impaired independence with ADLsand IADLs requiring PT/OT/ONLINE MARKETING STRATEGIST 5-7 days/week 3 hours/day to maximize safety [...] equipment to enhance the patient's a functional hoahaoism Encourage deep breathing exercises and incentive spirometry [...] Allied health note review, nursing note review, successfactors consultant note review, discussion with nursing and case management, and more than 50% of my time was spent on counseling and coordination of care, time spent 70 minutes Patient was personally seen by me, Dr. La, on the day of encounter, reviewed the history and the relevant portions of the chart, including current orders, allied health and successfactors consultant notes, labs/imaging and performed mims elements [...] HTN, CAD s/p CABG who presents to [facility] IR[facility] for rehab following 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 He has continued impaired mobility and impaired independence with ADLsand IADLs requiring PT/OT/ONLINE MARKETING STRATEGIST 5-7 days/week 3 hours/day to maximize safety [...] equipment to enhance the patient's a functional hoahaoism Encourage deep breathing exercises and incentive spirometry [...] Allied health note review, nursing note review, successfactors consultant note review, discussion with nursing and case management, and more than 50% of my time was spent on counseling and coordination of care, time spent 30 minutes Patient was personally seen by me, Dr. La, on the day of encounter, reviewed the history and the relevant portions of the chart, including current orders, allied health and successfactors consultant notes, labs/imaging and performed mims elements [...] <Electronically signed by Donovan La MD> 09/27/[address] [place] [address] Work Phone: 1(863) 482-980402-14-2024 History of Present illness Narrative* Anel Llamas RN - 09/26/2023 3:19 PM EST [facility] History and physical note Author Donovan La [facility] September 26, 2023 12:12pm Note Date/Time September 26, 2023 10:24am [facility] [address] [place] [address] Physiatry (Rehab) H&P Signed Patient: Janice Shultz MR#: [id number] : 1945 Acct:[id number] Age/Sex: 78 / M Adm Date: 4 Loc: Room: [address] [place] [address] Type: ADM IN Attending Dr: Donovan La MD Copies to: MD Sherif Mercado MD~ Date of Service: 09/26/2023 HPI The patient was seen and examined on: 09/26/23 History of Present Illness: Mr. 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 The patient initially presents to [facility] for evaluation for 5 days vertigo with N/V, blurred vision, and gait instability. He reportedly had a fall1 day prior to admission due to vertigo. Non contrast CTH was done and demonstrated evidence of hemorrhage in the PICA territory. Patient was transferred to [facility]. MRI was done andconfirmed PICA ischemic [...] abnormalities. Tolerating therapy thus far. [facility] Medical History (Updated 09/26/23 @ 12:06 by [...] Bisacodyl (Bisacodyl 10 Mg Supp.Rect) 10 mg MA DAILY PRN PRN Reason: Constipation Stop: 09/24/24 15:42 Docusate Sodium (Docusate 100 Mg Capsule) 100 mg PO BID PRN PRN Reason: Constipation Stop: 09/24/24 15:42 Docusate Sodium (Docusate Enema 283 Mg/5 Ml Enema) 283 mg MA DAILY PRN PRN Reason: Constipation Stop: 09/24/24 15:42 Fish Oil ([place]-3/Fish Oil 1,000 Mg Capsule) 1,000 mg PO [...] 5 Mg Tablet) 5 mg PO HS NAYELY Stop: 09/24/24 21:59 Last Admin: 09/25/23 21:13 Dose: 5 mg Metformin HCl (Metformin 500 Mg Tablet) 500 mg PO DAILY.WITH.SUPPER [facility] Stop: 09/25/24 16:59 Metoprolol Tartrate (Metoprolol Tartrate 25 Mg Tablet) 25 mg PO BID [facility] Stop: 09/24/24 20:59 Last Admin: 09/26/23 08:42 Dose: Not Given Scopolamine (Scopolamine 1 Mg/3 Days Patch) 1 each TRANSDERML Q72HR [facility] Stop: 09/27/24 08:59 Sennosides (Sennosides 8.6 Mg Tablet) 2 tab PO DAILY@12 PRN PRN Reason: If no BM in 2 days Stop: 09/25/24 11:59 Sodium Chloride (Sodium Chloride 0.9 % 10 Ml Syringe) 0 ml IV-PUSH PRN PRN PRN Reason: Flush Stop: 09/24/24 15:42 Tamsulosin HCl (Tamsulosin 0.4 Mg Cap.Er.24h) 0.4 mg PO QHS [facility] Stop: 09/24/24 21:59 Last Admin: 09/25/23 [...] % (Auto) 68.0 Lymph % (Auto) 19.4 Mathews % (Auto) 9.4 Eos % (Auto) 2.1 Baso % (Auto) 1.1 Nucleat RBC Rel Count 0.0 Neut # (Auto) 6.2 Lymph # (Auto) 1.8 Mathews # (Auto) 0.9 H Eos # (Auto) [...] 24 hour daily monitoring and intervention from Wind Field Service Manager as well as other consulting physicians including internal medicine as well as 24 hour daily home health physical therapist nursing - for medical safe / optimal [...] HTN, CAD s/p CABG who presents to [facility] for rehab following 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 He has continued impaired mobility and impaired independence with ADLsand IADLs requiring PT/OT/ONLINE MARKETING STRATEGIST 5-7 days/week 3 hours/day to maximize safety [...] equipment to enhance the patient's a functional hoahaoism Encourage deep breathing exercises and incentive spirometry [...] Allied health note review, nursing note review, successfactors consultant note review, discussion with nursing and case management, and more than 50% of my time was spent on counseling and coordination of care, time spent 70 minutes Patient was personally seen by me, Dr. La, on the day of encounter, reviewed the history and the relevant portions of the chart, including current orders, allied health and successfactors consultant notes, labs/imaging and performed mims elements of exam and I formulated the plan of care and facilitated the medical decision making. Documented By: Donovan La MD [id number] Signed By: <Electronically signed by Donovan La MD> 09/26/23 1212 [facility] Work Phone: 1(106) 423-508605-02-2023 Evaluation note* Encounter Date Diagnosis Assessment Notes [...] the meantime with any issues or concerns. [employer] Other 09-12-2022 NotePROCEDURE: XR HIP LT 2 [...] Electronically authenticated by: KASH AZAR Date: 2022-04-24 18:45[facility]04-26-[facility] Evaluation note* Encounter Date Diagnosis Assessment Notes [...] in the meantime with any issues present. [employer] Other Evaluation note* Diagnosis Cerebrovascular accident (CVA) due to embolism of precerebral artery (CMS-HCC)- Primary Other cerebrovascular vasospasm and vasoconstriction documented in this encounter [facility]* Diagnosis Onset Date Resolution Status CAD (coronary artery disease) acute CVA (cerebral vascular accident) acute Hyperlipidemia acute Hypertension acute Impaired mobility and activities of daily living acute Vertigo acute History of cardiac catheterization resolved [facility] Work Phone: Evaluation note* Diagnosis Cerebrovascular accident (CVA), unspecified mechanism (CMS-HCC)- Primary Lacunar infarction (CMS-HCC) Unspecified cerebral artery occlusion with cerebral infarction 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) Primary hypertension Unspecified essential hypertension Left arm numbness Disturbance of skin sensation documented in this encounter [employer] SystemEvaluation note* Diagnosis 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, unspecified vessel or lesion type (CMS/HCC) Cerebrovascular accident (CVA), unspecified mechanism (CMS/HCC) History of PTCA 2 Hyperlipidemia, unspecified hyperlipidemia type 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, late effect of cerebrovascular disease 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) documented in this encounter [facility] Work Phone: Evaluation note* Diagnosis Cerebrovascular accident (CVA), unspecified mechanism (CMS/HCC) Arterial ischemic stroke, remote, resolved Transient ischemic attack (TIA), and cerebral infarction without residual deficits documented in this encounter [facility] Work Phone: History general Narrative - Reported* Type Description Date Medical History CAD Medical History CVA x2 Medical History HTN Medical History h/o IN Surgical History hernia repair Surgical History back Surgical History right wrist surgery Surgical History RIGHT CEA WITH PATCH 05/10/20 Hospitalization History stroke Hospitalization History heart matti. Hospitalization History back matti. [employer] Other InstructionsNot on filedocumented in this encounter [facility] SystemInstructionsNot on filedocumented in this encounter [facility] SystemInstructionsNot on filedocumented in this encounter [facility] SystemInstructions* Attachments The following attachments cannot be sent through Care Everywhere. * Stroke Rehab Exercises ([place] Korean) [facility] Summary Purpose Family History No Family [...] Contac t Referred To Contact Cardiology Diagnoses Cerebrovascular accident (CVA), unspecified mechanism (CMS/HCC) Arterial ischemic stroke, remote, resolved Procedures Transthoracic Echo Limited MA ECHO TRANSTHORC R-T 2D W/WO M-MODE REC F-UP/LMTD MA DOP ECHOCARD COLOR FLOW VELOCITY MAPPING MA DOP ECHOCARD PULSE WAVE W/SPECTRAL F-UP/LMTD STD Lake Evangelista, DO [address] [facility] [address] [place] [address] Referral ID Status Reason Start Date Expiration Date Visits Requested Visits Authorized [id number] Authorized Perform Procedure 11/12/2023 11/11/2024 1 1 Specialty Diagnoses / Procedures Referred By Contac t Referred To Contact Cardiology Diagnoses 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, unspecified vessel or lesion type (CMS/HCC) Cerebrovascular accident (CVA), unspecified mechanism (CMS/HCC) History of PTCA 2 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) Procedures Transthoracic Echo Complete MA ECHO TTHRC R-T 2D W/WOM-MODE COMPL SPEC&COLR D Lake Evangelista, DO [address] [place] [address] [address], [address] [address] Referral ID Status Reason Start Date Expiration Date Visits Requested Visits Authorized [id number] Pending Review Perform Procedure 10/24/2023 10/23/2024 1 1 Specialty Diagnoses / Procedures Referred By Contac t Referred To Contact Cardiology Diagnoses 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, unspecified vessel or lesion type (CMS/HCC) Cerebrovascular accident (CVA), unspecified mechanism (CMS/HCC) History of PTCA 2 Vertigo as late effect of stroke Procedures Holter Or Event Soda Dialyzer Lkae Evangelista, DO [address] [place] [address] [address], [address] [address] Referral ID Status Reason Start Date Expiration Date V isits Requested Visits Authorized [id number] Pending Review 10/24/2023 10/23/2024 1 1 Specialty Diagnoses / Procedures Referred By Contac t Referred To Contact Diagnoses Cerebrovascular accident (CVA) due to embolism of precerebral artery (CMS-HCC) Other cerebrovascular vasospasm and vasoconstriction Procedures Event Monitor (In Office) Prasanna Thornton APRN-CNP [address] [facility] [address] [place] [address] Referral ID Status Reason Start Date Expiration Date V isits Requested Visits Authorized [id number] Pending Review 09/26/2023 09/25/2024 1 1 Chief [...] section and content) DATE CREATED AUTHOR 01/23/2018 [facility] DATE CREATED AUTHOR AUTHOR'S ORGANIZ ATION 06/06/2018 [facility] DATE CREATED AUTHOR AUTHOR'S ORGANIZ ATION 05/20/2021 [facility] DATE CREATED AUTHOR AUTHOR'S ORGANIZ ATION 05/09/2022 [facility] DATE CREATED AUTHOR AUTHOR'S ORGANIZ ATION 05/06/2023 [facility] DATE CREATED AUTHOR AUTHOR'S ORGANIZ ATION 05/06/2023 [employer] DATE CREATED AUTHOR AUTHOR'S ORGANIZ ATION 10/23/2023 [facility] DATE CREATED AUTHOR AUTHOR'S ORGANIZ ATION 11/17/2023 [facility] DATE CREATED AUTHOR AUTHOR'S ORGANIZ ATION 11/23/2023 [facility] DATE CREATED AUTHOR AUTHOR'S ORGANIZ ATION 01/05/2024 [facility] DATE CREATED AUTHOR AUTHOR'S ORGANIZ ATION 05/04/2024 [facility] REASON FOR VISIT (unrecogniz ed section and content) Reason Onset Date Comments Transition Of Care 10/05/2023 Reason Comments BELÉN Reason Comments Hospital Follow-up [facility] discharge Reason Onset Date Comments Med Refill 10/29/2023 Specialty Diagnoses / Procedures Referred By Contac t Referred To Contact Cardiology Diagnoses Cerebrovascular accident (CVA), unspecified mechanism (CMS/HCC) Arterial ischemic stroke, remote, resolved Procedures Transthoracic Echo Limited MA ECHO TRANSTHORC R-T 2D W/WO M-MODE REC F-UP/LMTD MA DOP ECHOCARD COLOR FLOW VELOCITY MAPPING MA DOP ECHOCARD PULSE WAVE W/SPECTRAL F-UP/LMTD STD Lake Evangelista, DO [address] [facility] [address] [place] [address] Referral ID Status Reason Start Date Expiration Date Visits Requested Visits Authorized [id number] Authorized Perform Procedure 11/12/2023 11/11/2024 1 1 Care Teams (unrecognized sec tion and content) Embalmer/Funeral Director Relationship Specialty Start Date End Date Sherif Paredes MD [address] [place] [address] PCP - General Family Medicine 07/09/17 Team Status: Active Member Role Status Dates Sherif Paredes MD Primary Care Provider Active Team Status: Inactive Member Role Status Dates Sherif Paredes MD Primary Care Provider Active Start: September 25, 2023 End: October 04, 2023 Donovan La MD Admit Provid er, Attending Provider Active Start: September 25, 2023 End: October 04, 2023 Jessica Barber RN Other Provider Active Star t: September 25, 2023 End: October 04, 2023 Gabbie Heredia , FELIPE Other Provider Active Start : September 25, 2023 End: October 04, 2023 Shaista Galicia , FELIPE Other Provider Active Start: 2023 End: October 04, 2023 Harriet Enriquez , FELIPE Other Provider Active Star t: September 25, 2023 End: October 04, 2023 Carmen Burris , FELIPE Other Provider Active Start : September 25, 2023 End: October 04, 2023 Shreya Mendieta , FELIPE Other Provider Active Start: 2023 End: October 04, 2023 Richa Butler , FELIPE Other Provider Active Start: bru2023 End: October 04, 2023 Sole Ellington MD Other Provider Active Start: September 25, 2023 End: October 04, 2023 Prem Carrasco MD Other Provider Active Start: ruary 2023 End: October 04, 2023 Catie North [...] Start: ebruary 2023 End: October 04, 2023 Jessie Andrea APRN Other Provider Active Start: September 25, 2023 End: October 04, 2023 Hali Springer MD Other Provider Active Start: September 25, 2023 End: October 04, 2023 Fercho Newby MD Other Provider Active Start: ebary 2023 End: October 04, 2023 Adriana Ling MD Other Provider Active Start: September 25, 2023 End: October 04, 2023 Saloni Esposito MD Other Provider Active Start: September 25, 2023 End: October 04, 2023 Kay Blackburn DO Other Provider Active Start: September 25, 2023 End: October 04, 2023 Lindsey Mcghee MD Other Provider Active Start: bruary 2023 End: October 04, 2023 Bahman Harley MD Other Provider Active Start: Sep ruary 2023 End: October 04, 2023 ANTWAN Gonzalez [...] Rohit Toure MD Other Provider Active Start: ebtalco 2023 End: October 04, 2023 Radha Islas , DO Other Provider Active Start: 2023 End: October 04, 2023 Crow Ceballos , DO Other Provider [...] Dan RN Other Provider Active Start: 2023 End: October 04, 2023 Team Status: [...] Provider Active Start: Sep Kell Dyer , LAB AID-C Other Provider Active St art: September 26, [...] Active Start: September 26, 2023 Jessica Barber RN Other Provider Active Star t: September 26, 2023 Gabbie Heredia RN Other Provider Active Start : September 26, 2023 Shaista Galicia , FELIPE Other Provider Active Start: ebruary 2023 Harriet Enriquez , FELIPE Other Provider [...] Fercho Newby MD Other Provider Active Start: ary 2023 Adriana Ling MD Other Provider Active Start: September 26, 2023 Saloni Esposito MD Other Provider Active Start: September 26, 2023 Kay Blackburn DO Other Provider Active Start: September 26, 2023 Lindsey Mcghee MD Other Provider Active Start: 2023 Bahman Harley MD Other Provider Active Start: Sep ru2023 ANTWAN Gonzalez Other Provider Active St art: September 26, 2023 Rebekah Rodríguez APRN Other Provider Active Star t: September 26, 2023 Fletcher Pollard MD Other Provider Active Start: September 26, 2023 Gui Longo MD Other Provider Active Start: ary 2023 Alexx Garcia MD Other Provider Active Start: Sep rutalco 2023 Arlene Mccall MD Other Provider Active [...] Galicia , FELIPE Other Provider Active Start: eb2023 Harriet Enriquez , FELIPE Other Provider Active Star t: October 03, 2023 Carmen Burris RN Other Provider Active Start : October 03, 2023 Shreya Mendieta RN Other Provider Active Start: 2023 Richa Butler RN Other Provider Active Start: 2023 Sole Ellington MD Other Provider Active Start: October 03, 2023 Prem Carrasco MD Other Provider Active Start: 2023 Catie North , TEACHERS' ASSISTANT Other Provider Active Start: October 03, 2023 Aayush Faith , DO Other Provider Active Start : October 03, 2023 Fuentes Nazario MD Other Provider Active Start : October 03, 2023 Cesar Parr DO Other Provider Active Start: October 03, 2023 Emanuel Stevenson MD Other Provider Active Start: October 03, 2023 Niurka Chung MD Other Provider Active Start : October 03, 2023 Alex Hernandes MD Other Provider Active Start: 2023 Jessie Andrea , TEACHERS' ASSISTANT Other Provider Active Start: October 03, 2023 [...] art: October 03, 2023 Rebekah Rodríguez , TEACHERS' ASSISTANT Other Provider Active Star t: October 03, 2023 Fletcher Pollard MD Other Provider Active Start: October 03, 2023 Gui Longo MD Other Provider Active Start: 2023 Alexx Garcia MD Other Provider Active Start: Sep Arlene Mccall MD Other Provider Active Star t: October 03, 2023 Rohit Toure MD Other Provider Active Start: 2023 Radha Islas , Other Provider Active Start: 2023 Crow Ceballos , DO Other Provider Active Start : October 03, 2023 Dominic Bo , DO Other Provider Active Sta rt: October 03, 2023 Sarah Malhotra APRN Attending Provider, Other Provider Active Start: October 03, 2023 aSv Malcolm , DO Other Provider Active Start: [...] Yuli Dan RN Other Provider Active Start: eb2023 Team Status: [...] Provider Active Start : October 03, 2023 Feuntes Nazario MD Other Provider Active Start : [...] Provider Active Start: Sep Kell Dyer , JOANNE-C Other Provider Active St art: October 03, [...] Active Start : October 03, 2023 Fouzia C Mohamed , TEACHERS' ASSISTANT Other Provider Active St art: October 03, [...] Provider Active Star t: October 03, 2023 Embalmer/Funeral Director Relationship Specialty Start Date End Date Sherif Paredes MD [address] [place] [address] PCP - General Family Medicine 07/09/17 Embalmer/Funeral Director Relationship Specialty Start Date End Date Sherif Paredes MD [address] [place] [address] PCP - General Family Medicine 07/09/17 Embalmer/Funeral Director Relationship Specialty Start Date End Date Sherif Paredes MD [address] [place] [address] PCP - General Family Medicine 07/09/17 Embalmer/Funeral Director Relationship Specialty Start Date End Date Sherif Paredes MD [address] [place] [address] PCP - General 04/28/20 Lake Evangelista DO [address] [facility] [address] [place] [address] PCP - Aet Medicare Advantage PCP 08/13/23 Dena Keith, card grinderTelecommunications Network Planner 10/05/23 10/24/23 Embalmer/Funeral Director Relationship Specialty Start Date End Date Sherif Paredes MD [address] [place] [address] PCP - General Family Medicine 07/09/17 Embalmer/Funeral Director Relationship Specialty Start Date End Date Sherif Paredes MD [address] [place] [address] PCP - General 04/28/20 [place] Evangelista DO [address] [facility] [address] [place] [address] PCP - [employer] Medicare Advantage PCP 08/13/23 FOR RECORDS PERTAINING TO PATIENTS WHO ARE [...] BE BASED ON THE PRIMARY CLINICAL RECORDS. [employer] provides no warranty or guarantee of the accuracy or completeness of information in this document.
[2024-05-14 10:32] LABS: Alanine Aminotransferase 22 U/L (16-63); Aspartate Amino Transferase 21 U/L (15-37); Cholesterol 175 mg/dL (<=200); HDL Cholesterol 35 mg/dL (40-60); Triglycerides 315 mg/dL (<=150)
== END 2024-05-14 08:26 | disposition home or self-care (01) ==
LOC: LAB 08:25
PROVIDERS: PCP Family Medicine; Visit Provider Internal Medicine Cardiovascular Disease
DX: E78.2 Mixed hyperlipidemia (principal); E78.5 Hyperlipidemia, unspecified
CPT/HCPCS: 36415; 80061; 84450; 84460

== ENCOUNTER 2024-12-10 08:10 | Outpatient (OUT) | payer MEDICARE, SELFPAY ==
[2024-12-10 08:39] LABS: Chol HDL Ratio 5.3; Cholesterol 205 mg/dL (<=200); HDL Cholesterol 39 mg/dL (40-60); Triglycerides 169 mg/dL (<=150); VLDL CHOLESTEROL 33.8 mg/dL
== END 2024-12-10 08:11 | disposition home or self-care (01) ==
LOC: LAB 08:10
PROVIDERS: PCP Family Medicine; Visit Provider Internal Medicine Cardiovascular Disease
DX: I25.119 Atherosclerotic heart disease of native coronary artery with unspecified angina pectoris (principal); E78.2 Mixed hyperlipidemia
CPT/HCPCS: 36415; 80061

== ENCOUNTER 2025-03-13 08:13 | Outpatient (OUT) | payer MEDICARE, SELFPAY ==
[2025-03-13 08:49] LABS: Alanine Aminotransferase 23 U/L (16-63); Aspartate Amino Transferase 20 U/L (15-37); Cholesterol 170 mg/dL (<=200); HDL Cholesterol 36 mg/dL (40-60); Triglycerides 203 mg/dL (<=150); VLDL CHOLESTEROL 40.6 mg/dL
[2025-03-14 04:07] LABS: C-Reactive Protein, Cardiac 1.32 mg/L (0.00-3.00)
== END 2025-03-13 08:14 | disposition home or self-care (01) ==
LOC: LAB 08:13
PROVIDERS: PCP Family Medicine; Visit Provider Internal Medicine Cardiovascular Disease
DX: E78.2 Mixed hyperlipidemia (principal); I25.119 Atherosclerotic heart disease of native coronary artery with unspecified angina pectoris; I25.2 Old myocardial infarction; Z98.61 Coronary angioplasty status; I25.10 Atherosclerotic heart disease of native coronary artery without angina pectoris
CPT/HCPCS: 36415; 80061; 84450; 84460; 86140